=== PATIENT | female | born 1945 | race Caucasian/White ===

== ENCOUNTER → 2023-09-22 00:27 | Outpatient (CLI) | payer MEDICARE, SELFPAY ==
--- NOTE | 2023-09-22 | DI.CT_ITS ---
Exam(s) CT CHEST WO EXAM: CT CHEST WO CLINICAL HISTORY: LUNG NODULE, R91.1, 4 MM LUNG NODULE RLL SEEN ON CT SIM FOR BREAST CA TECHNIQUE: Imaging Protocol: Axial computed tomography images with coronal and sagittal reformatted images were created and reviewed CONTRAST MATERIAL: Intravenous: Omnipaque 350 Contrast volume:structured data ml. COMPARISON: CT CT ANGIOGRAM ABDOMEN AND PELVIS W CONTRAST (GENERIC) from 02/07/[address] HEART FUNC (NON-CORONARY) W from 02/07/[address] RAD ONC CHEST INTER from 07/07/[address] RAD ONC CHEST INTER from 08/04/2023 FINDINGS: Pulmonary parenchyma: No consolidation. Left lower lobe nodule stable. Pre previously mentioned nod ule near the right major fissure is not visible on today's exam mild bilateral upper lobe interstiti al changes. Tracheobronchial tree: No bronchiectasis or mucous plugging. Mediastinum and Dione: No dominant adenopathy or fluid collection. Pleura: No effusion. No pneumothorax. Heart: The heart is mildly dilated. No coronary artery calcifications are seen. Status post TAVR, sarita ral valve and tricuspid valve replacements. Aorta: Thoracic aorta non-dilated. Moderate atherosclerotic changes. Upper abdomen: Unremarkable. Bones: Median sternotomy wires. Soft tissues: Surgical clips and mild scarring in the left breast. IMPRESSION: Stable left lower lobe nodule. Nodule mentioned on previous exam in the anterior right lower lobe no t seen on the current study. RADIATION DOSE DELIVERED: Total DLP DATA REPOSITORY: All CT scans at this facility are submitted to the National Radiology Data Registry (NRDR) Dose Index Registry (DIR) with the [employer] ([employer]). RADIATION OPTIMIZATION: All CT scans at this facility use at least one of these dose optimization te chniques: automated exposure control; mA and/or kV adjustment per patient size (includes targeted exa ms where dose is matched to clinical indication); or iterative reconstruction.
== END ==
PROVIDERS: PCP Registered Nurse Critical Care Medicine; Visit Provider Radiology Radiation Oncology
DX: R91.1 Solitary pulmonary nodule (principal)
CPT/HCPCS: 71250

== ENCOUNTER → 2024-04-11 02:47 | Outpatient (CLI) | payer MEDICARE, SELFPAY ==
--- NOTE | 2024-04-11 10:39 | DI.CT_ITS ---
Exam(s) CT CHEST WO EXAM: CT CHEST WO CLINICAL HISTORY: R91.8 Lung nodules,Z29.3 S/P radiotherapy, H/O Hodgkins s/p xrt 40 yrs ago. TECHNIQUE: Imaging protocol: Axial computed tomography images were obtained and coronal and sagittal reformatted images were created and reviewed. COMPARISON: CT CT RAD ONC CHEST INTER from 07/07/[address] RAD ONC CHEST INTER from 08/04/[address] CHEST WO from 09/22/2023 FINDINGS: Tracheobronchial tree: Patent where visualized. Pulmonary parenchyma: There is a stable 4-5 mm left lower lobe nodule (series 3, image 381). There i s a small infiltrate seen in the right lung base. Post radiation changes are again seen in the chest . No new pulmonary nodules are present. Mediastinum and Dione: No dominant adenopathy or fluid collection. The esophagus is unremarkable. Pleura: No effusion or pneumothorax. Heart: Cardiomegaly. Aortic, tricuspid and mitral valve replacements are present. Coronary artery c alcifications are present. No pericardial effusion. Aorta: The ascending thoracic aorta measures 3.7 x 3.6 cm. Atherosclerotic calcification is present. Upper abdomen: Cholelithiasis. There is a 1 cm hypodensity in the dome of the liver (series 3, imag e 480). Lymph nodes: Within normal limits. Soft tissues: Unremarkable. Bones:Within normal limits for the patient's age. Sternal wires are in place. IMPRESSION: 1. No new pulmonary nodules. 2. Small the trait in the right lower lobe. This may be post therapeutic but an infectious or inflam matory process should be considered. Please correlate clinically. 3. 1 cm hypodensity in the dome of the liver. Further evaluation with CT and/or MRI of the liver is recommended. RADIATION DOSE DELIVERED: 575.42mGy.cm Total DLP 575.42mGy.cm Total DLP DATA REPOSITORY: All CT scans at this facility are submitted to the National Radiology Data Registry (NRDR) Dose Index Registry (DIR) with the [employer] ([employer]). RADIATION OPTIMIZATION: All CT scans at this facility use at least one of these dose optimization te chniques: automated exposure control; mA and/or kV adjustment per patient size (includes targeted exa ms where dose is matched to clinical indication); or iterative reconstruction.
== END ==
PROVIDERS: PCP Registered Nurse Critical Care Medicine; Visit Provider Radiology Radiation Oncology
DX: R91.8 Other nonspecific abnormal finding of lung field (principal)
CPT/HCPCS: 71250

== ENCOUNTER → 2024-04-25 04:04 | Outpatient (CLI) | payer MEDICARE, SELFPAY ==
--- OUTSIDE RECORDS SUMMARY | 2024-04-25 04:06 | XMS_ITS | Continuity of Care Document ---
Author Name Unknown Organization [facility] Address [address] [place] [address] Care Team Providers Care Research Spec Name Role Phone Taylor DEWEYNMally Ronda Primary Care Physician Encounter LTTL_CT FIN NBR [id number] Date(s): 03/11/23 - 03/11/[address] [address]- [place] Discharge Disposition: Home or Self Care Attending Physician: Katlyn Peoples DO Admitting Physician: Katlyn Peoples DO Allergies, Adverse Reactions, Alerts Substance Reaction Severity Status narcotic analgesics Unknown Active sulfa drugs Rash Hallucinations Unknown Active Flomax Dizziness Unknown Active Assessment and Plan Future Appointments Immunizations Given and Recorded Vaccine Date Status Refusal Reason influenza virus vaccine, inactivated 1 08/02/22 Re corded SARS-CoV-2 mRNA (toshainanameran 12y+) bival 2 08/02/22 Recorded 1Result Comment: RD done at [facility] Lot: [id number] exp: 05/08/2023 [employer] 2Result Comment: Lot: [id number] Exp: 06/08/23 LD done at [facility] Medications Acidophilus Probiotic Blend 1 cap, Oral, Daily, 0 Refill(s) Start Date: 08/11/22 Status: Ordered Albuterol (Eqv-Proventil HFA) 90 mcg/inh inhalation aerosol 1 puffs, Inhale, every 4 hr, PRN as needed for wheezing, Do not exceed 12 inhalations in a 24-hour period., # 1 EA, 0 Refill(s), Pharmacy: [facility] #[id number], 170, cm, 11/11/22 12:19:00 EST, Height/Length Dosing, 96, kg, 11/11/22 12:19:00 EST, Weight... Start Date: 11/25/22 Status: Ordered alendronate 70 mg oral tablet 70 mg = 1 tab, Oral, every week, with 6-8 oz plain water, at least 30 minutes before first food, beverage, or medication of the day. Remain upright for at least 30 minutes after taking., # 12 tab, 1 Refill(s), Pharmacy: [facility]... Start Date: 02/03/23 Stop Date: 07/21/23 Status: Ordered aspirin 81 mg oral delayed release tablet 81 mg = 1 tab, Oral, Daily, # 30 tab, 0 Refill(s) Start Date: 01/05/23 Status: Ordered atorvastatin 10 mg oral tablet 10 mg = 1 tab, Oral, every evening, # 90 tab, 3 Refill(s), Pharmacy: [facility],114.09, cm, 08/12/22 16:18:00 EDT, Height/Length Dosing, 165, kg, 08/12/22 16:18:00 EDT, Weight Dosing Start Date: 10/24/22 Stop Date: 10/19/23 Status: Ordered calcium (as carbonate)-vitamin D 600 mg-200 intl units oral tablet 1 tab, Oral, Daily Start Date: 08/11/22 Status: Ordered citalopram 20 mg oral tablet See Instructions, TAKE ONE TABLET BY MOUTH ONCE DAILY Appointment on 03/24/2023, # 90 tab, 0 Refill(s), Pharmacy: [facility] #[id number], 170, cm, 11/11/22 12:19:00 EST, Height/Length Dosing, 96, kg, 11/11/22 12:19:00 EST, Weight Dosing Start Date: 03/09/23 Status: Ordered Coenzyme Q10 100 mg oral capsule 100 mg = 1 cap, Oral, Daily Start Date: 08/11/22 Status: Ordered docusate sodium 100 mg oral capsule 100 mg = 1 cap, Oral, BID, PRN as needed for constipation, # 20 cap, 0 Refill(s) Start Date: 09/16/22 Status: Ordered furosemide 40 mg oral tablet 40 mg = 1 tab, Oral, every morning, # 90 tab, 3 Refill(s), Pharmacy: [facility],114.09, cm, 08/12/22 16:18:00 EDT, Height/Length Dosing, 165, kg, 08/12/22 16:18:00 EDT, Weight Dosing Start Date: 10/24/22 Stop Date: 10/19/23 Status: Ordered gabapentin 100 mg oral capsule 100 mg = 1 cap, Oral, Daily, 0 Refill(s) Start Date: 01/11/23 Status: Ordered lansoprazole 30 mg oral delayed release capsule 30 mg = 1 cap, Oral, every morning Start Date: 08/11/22 Status: Ordered levothyroxine 137 mcg (0.137 mg) oral tablet 137 mcg = 1 tab, Oral, every morning Start Date: 08/11/22 Status: Ordered losartan 100 mg oral tablet 100 mg = 1 tab, Oral, Daily, # 90 tab, 3 Refill(s), Pharmacy: [facility], 114.09, cm, 08/12/22 16:18:00 EDT, Height/Length Dosing, 165, kg, 08/12/22 16:18:00 EDT, Weight Dosing Start Date: 10/24/22 Stop Date: 10/19/23 Status: Ordered metFORMIN 500 mg oral tablet 500 mg = 1 tab, Oral, every evening, # 90 tab, 3 Refill(s), Pharmacy: [facility], 114.09, cm, 08/12/22 16:18:00 EDT, Height/Length Dosing, 165, kg, 08/12/22 16:18:00 EDT, Weight Dosing Start Date: 10/24/22 Stop Date: 10/19/23 Status: Ordered metoprolol tartrate 25 mg oral tablet 25 mg = 1 tab, Oral, BID, # 180 tab, 3 Refill(s), Pharmacy: [facility], 114.09, cm, 08/12/22 16:18:00 EDT, Height/Length Dosing, 165, kg, 08/12/22 16:18:00 EDT, Weight Dosing Start Date: 10/24/22 Stop Date: 10/19/23 Status: Ordered multivitamin adult, oral tablet 1 tab, Oral, Daily Start Date: 08/11/22 Status: Ordered Senna Lax 8.6 mg oral tablet 17.2 mg = 2 tab, Oral, every day at bedtime, PRN as needed for constipation, # 100 tab, 0 Refill(s) Start Date: 09/16/22 Status: Ordered Problem List Condition Confirmation Course Effective Dates Status Health Status Informant Acquired hypothyroidism Confirmed Active Altered bowel habits Confirmed Active Amaurosis fugax Confirmed Active Anemia of chronic disorder Confirmed Active Colon arteriovenous malformation Confirmed Active Arthritis of right acromioclavicular joint Confirmed Active Asthma Confirmed Active Asthma Confirmed Active Autoimmune hemolytic anemia, unspecified Confirmed Active Carotid artery aneurysm Confirmed Active Cholecystitis, chronic Confirmed Active Grief reaction with prolonged bereavement Confirmed Active Coronary artery disease Confirmed Active Muscle cramps Confirmed Active Diabetes mellitus type 2 Confirmed Active Cardiomyopathy, dilated Confirmed Active Pharyngoesophageal dysphagia Confirmed Active Fibrosis of skin Confirmed Active Mild stress incontinence Confirmed Active History of varicose veins of lower extremity Confirmed Active Anemia, hemolytic Confirmed Active History of Hodgkin's disease Confirmed Active History of ITP Confirmed Active Hyperlipidemia Confirmed Active Hypertension Confirmed Active Hypertriglyceridemia Confirmed Active Hypothyroidism Confirmed Active Nocturnal hypoxemia Confirmed Active Lymphedema Confirmed Active Cystocele, midline Confirmed Active Aortic valve stenosis, mild Confirmed Active Mitral valve disorder Confirmed Active Mitral regurgitation Confirmed Active Depression with anxiety Confirmed Active Neuropathy Confirmed Active NHL - Non-Hodgkin's lymphoma Confirmed Active Obstructive sleep apnea Confirmed Active Osteoarthritis Confirmed Active Peripheral vascular disease, unspecified Confirmed Active Diabetic polyneuropathy associated with type 2 diabetes mellitus Confirmed Active Reactive depression Confirmed Active Presbylarynges Confirmed Active Sleep apnea Confirmed Active Isolation, social Confirmed Active Thrombocytopenia Confirmed Active Thrombocytopenic purpura Confirmed Active Varicose veins of both legs with edema Confirmed Active Vitamin D deficiency Confirmed Active Vocal cord paralysis, unilateral complete Confirmed Active Xerostomia Confirmed Active Procedures Procedure Date Related Diagnosis Body Site Status Arthroplasty Knee (Left) 1 08/12/22 Completed Aortic valve replacement and aortoplasty 02/06/21 Completed Colonoscopy 01/27/18 Completed EGD - Esophagogastroduodenoscopy 01/27/18 Completed Biopsy of liver 05/01/14 Completed Biopsy of right lung using f luoroscopic guidance 2013 Completed Open heart valvuloplasty of aortic valve without replacement 2013 Comp leted EGD - Esophagogastroduodenoscopy 05/23/10 Completed Colonoscopy 02/04/00 Completed Bilateral tubal ligation Completed ALEJO BSO - Total abdominal hy sterectomy and bilateral salpingo-oophorectomy 3 Completed 1auto-populated from documented surgical case 2Mitral and Tricuspid 3Due to Fibroids Results Radiology Reports * Exam Date Time Procedure Performing Provider Status 03/11/23 1:10 PM XR Knee Complete 4+ Views Right Twan Schulz; Auth (Verified) Notes: (XR Knee Complete 4+ Views Right) Reason For Exam: f/u right knee pain XR Knee Complete 4+ Views Right EXAM DESCRIPTION: XR Knee Complete 4+ Views Right 03/11/2023 INDICATION: F/U RIGHT KNEE PAIN COMPARISON: 06/04/2011 IMPRESSION: No acute fracture or dislocation Medial femorotibial and patellofemoral compartment joint space narrowing with tricompartment osteophyte formation consistent with osteoarthritic changes No focal lytic or sclerotic lesion Regional vascular calcification. JOB #: [id number] Final Signed by: Kishore Parra MD Signed (Electronic Signature): 03/11/2023 1:24 pm Social History Social History Type Response Tobacco Never tobacco user T obacco Use:. 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 Prateekemiliana Richelle, DO 08/12/22 Non Biological Knee L Device Identifier Serial Number Lot or Batch Number Manufacturing Date Expiration Date Distinct Identification Code MRI Safety Implantable Status Assigning Authority Unknown NA [id number] Unknown 08/07/24 Unknown Unknown Active Unknown Unknown N/A [id number] Unknown 06/10/32 Unknown Unknown Active Unknown Unknown NA [id number] Unknown 04/01/27 Unknown Unknown Active Unknown Unknown N/A [id number] Unknown 12/07/31 Unknown Unknown Active Unknown Unknown N/A [id number] 2 Unknown 12/15/26 Unknown Unknown Active Unknown XR Knee - right GE 4 Views * Kishore Parra MD: VERIFY, VERIFY Event Display: Report EXAM DESCRIPTION: XR Knee Complete 4+ Views Right 03/11/2023 INDICATION: F/U RIGHT KNEE PAIN COMPARISON: 06/04/2011 IMPRESSION: No acute fracture or dislocation Medial femorotibial and patellofemoral compartment joint space narrowing with tricompartment osteophyte formation consistent with osteoarthritic changes No focal lytic or sclerotic lesion Regional vascular calcification. JOB #: [id number] Final Signed by: Kishore Parra MD Signed (Electronic Signature): 03/11/2023 1:24 pm Patient Care team information Care Team Personnel Name: Sanaz Fang APRN, Position: Physician Member Role: Nurse Practitioner Address: Address: [address] [place] [address] Name: Anabel Peoples APRN Position: Physician Member Role: Nurse Practitioner Address: Address: [address] [place] [address] Name: Mally Vazquez APRN Position: Physician Member Role: Primary Care Physician Address: Address: [address] [place] [address] [place] [address] Care Team Related Persons Name: LAURA LEON Address: Home
--- OUTSIDE RECORDS SUMMARY | 2024-04-25 04:06 | XMS_ITS | Continuity of Care Document ---
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 Name Role Phone Mally Vazquez APRN Primary Care Physician [phone] Encounter [facility] NBR [id number] Date(s): 10/21/23 - 10/22/[address] [phone]- [place] Encounter Diagnosis Generalized weakness(Discharge Diagnosis) - 10/21/23 NOVA (acute kidney injury)(Discharge Diagnosis) - 10/21/23 DM2 (diabetes mellitus, type 2)(Discharge Diagnosis) - 10/21/23 KWAKU on CPAP(Discharge Diagnosis) - 10/21/23 Discharge Disposition: Home or Self Care Attending Physician: Jonathon Cox APRN Admitting Physician: Jonathon Cox APRN Allergies, Adverse Reactions, Alerts Substance Reaction Severity Status narcotic analgesics 1 Unknown Active sulfa drugs Rash Hallucinations Unknown Active Flomax Dizziness Unknown Active 1coma for 4 days . 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 Current Home Treatments CPAP, Oxygen therapy Home Equipment CPAP unit, Oxygen, Walker 10/22/23 Breakfast Percent 100 10/22/23 Activity Status ADL Sleeping 10/21/23 Family Member Travel History No recent t ravel Recent Travel History No recent travel Other exposure to Infectious Disease Non e Immunizations Given and Recorded Vaccine Date Status Refusal Reason influenza virus vaccine, inactivated 1 08/02/22 Re corded SARS-CoV-2 mRNA (tolaminn 12y+) bival 2 08/02/22 Recorded 1Result Comment: RD done at [facility] Lot: [id number] exp: 05/08/2023 [employer] 2Result Comment: Lot: [id number] Exp: 06/08/23 LD done at [facility] Medications Albuterol (Eqv-Proventil HFA) 90 mcg/inh inhalation aerosol 1 puffs, Inhale, every 4 hr, PRN as needed for wheezing, Do not exceed 12 inhalations in a 24-hour period., # 1 EA, 0 Refill(s), Pharmacy: [id number], 170, cm, 11/11/22 12:19:00 EST, Height/Length Dosing, 96, kg, 11/11/22 12:19:00 EST, Weight Dosing Start Date: 11/25/22 Status: Ordered alendronate 70 mg oral tablet 70 mg = 1 tab, Oral, every week, with 6-8 oz plain water, at least 30 minutes before first food, beverage, or medication of the day. Remain upright for at least 30 minutes after taking., # 12 tab, 1 Refill(s), Pharmacy: [facility], 170, cm, 11/11/22 12:19:00 EST, Height/Length Dosing, 96, kg, 11/11/22 12:19:00 EST, Weight Dosing Start Date: 07/21/23 Stop Date: 01/05/24 Status: Ordered atorvastatin 10 mg oral tablet 10 mg = 1 tab, Oral, every evening, # 90 tab, 3 Refill(s), Pharmacy: [facility],114.09, cm, 08/12/22 16:18:00 EDT, Height/Length Dosing, 165, kg, 08/12/22 16:18:00 EDT, Weight Dosing Start Date: 10/24/22 Stop Date: 10/19/23 Status: Ordered Calcium 600+D 600 mg-200 intl units oral tablet 1 tab, Oral, Daily, 28 tab, 0 Refill(s) Start Date: 04/22/23 Status: Ordered citalopram 20 mg oral tablet 20 mg = 1 tab, Oral, Daily, # 30 tab, 0 Refill(s) Start Date: 10/22/23 Status: Ordered Coenzyme Q10 100 mg oral capsule 100 mg = 1 cap, Oral, Daily Start Date: 08/11/22 Status: Ordered Diabetic footwear Diabetic footwear, Please fit for diabetic shoes., Supply, See instructions, # 1 EA, 0 Refill(s) Start Date: 03/30/23 Status: Ordered famotidine 20 mg oral tablet 20 mg = 1 tab, Oral, Daily, 0 Refill(s) Start Date: 04/22/23 Status: Ordered folic acid 1 mg oral tablet 1 mg = 1 tab, Oral, Daily, # 30 tab, 0 Refill(s) Start Date: 10/20/23 Status: Ordered furosemide 40 mg oral tablet 1 tab, Oral, every morning, # 90 tab, 3 Refill(s), Pharmacy: [facility], 165, cm, 09/24/23 19:47:00 EST, Height, 102.2, kg, 09/24/23 19:47:00 EST, Weight Dosing Start Date: 10/13/23 Status: Ordered gabapentin 100 mg oral capsule 100 mg = 1 cap, Oral, Daily, # 90 cap, 3 Refill(s), Pharmacy: [facility], 165, cm, 09/24/23 19:47:00 EST, Height, 102.2, kg, 09/24/23 19:47:00 EST, Weight Dosing Start Date: 10/13/23 Stop Date: 10/07/24 Status: Ordered Jardiance 10 mg oral tablet 1 tab, Oral, every morning, # 30 tab, 0 Refill(s), Pharmacy: [facility] #[id number], 165, cm, 09/24/2319:47:00 EST, Height, 102.2, kg, 09/24/23 19:47:00 EST, Weight Dosing Start Date: 10/12/23 Status: Ordered lansoprazole 30 mg oral delayed release capsule 30 mg = 1 cap, Oral, Daily, # 30 cap, 0 Refill(s) Start Date: 10/22/23 Status: Ordered letrozole 2.5 mg oral tablet 2.5 mg = 1 tab, Oral, Daily, 0 Refill(s) Start Date: 10/22/23 Status: Ordered levothyroxine 137 mcg (0.137 mg) oral tablet See Instructions, TAKE 1 TABLET DAILY IN THE MORNING ON AN EMPTY STOMACH, # 90 tab, 3 Refill(s), Pharmacy: [facility], 170, cm, 11/11/22 12:19:00 EST, Height/Length Dosing, 96, kg,11/11/22 12:19:00 EST, Weight Dosing Start Date: 04/14/23 Status: Ordered losartan 100 mg oral tablet 1 tab, Oral, Daily, # 90 tab, 3 Refill(s), Pharmacy: [facility], 165, cm, 09/24/23 19:47:00 EST, Height, 102.2, kg, 09/24/23 19:47:00 EST, Weight Dosing Start Date: 10/01/23 Status: Ordered metoprolol tartrate 25 mg oral tablet 25 mg = 1 tab, Oral, BID, # 180 tab, 3 Refill(s), Pharmacy: [facility], 170, cm,11/11/22 12:19:00 EST, Height/Length Dosing, 96, kg, 11/11/22 12:19:00 EST, Weight Dosing Start Date: 08/25/23 Stop Date: 08/19/24 Status: Ordered multivitamin adult, oral tablet 1 tab, Oral, Daily Start Date: 08/11/22 Status: Ordered RediMetrics oral capsule 8 EA, TAKE 1 CAPSULE BY MOUTH TWICE DAILY, 0 Refill(s) Start Date: 04/22/23 Status: Ordered Please provide one touch ultra test strips Please provide one touch ultra test strips, For blood glucose monitoring once daily., Supply, See instructions, # 100 EA, 3 Refill(s), Pharmacy: [facility] Start Date: 10/23/23 Status: Ordered Mental Status 10/22/23 Eye Opening Response [place] Spontaneous ly Best Verbal Response Chichi Oriented Best Motor Response Chichi Obeys comman ds Chichi Coma Score 15 Problem List Condition Confirmation Course Effective Dates [...] Hypothyroidism Confirmed Active Nocturnal hypoxemia Confirmed Active Idiopathic thrombocytopenia Confirmed Active 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 Lymphedema Confirmed Active Cystocele, midline Confirmed Active Aortic valve stenosis, mild Confirmed Active Mitral valve disorder Confirmed Active Mitral regurgitation Confirmed Active Depression with anxiety Confirmed Active Neuropathy Confirmed Active NHL - Non-Hodgkin's lymphoma Confirmed Active Normocytic anemia Confirmed Active Obstructive sleep apnea Confirmed Active [...] Colonoscopy 02/04/00 Completed Bilateral tubal ligation Completed Lumpectomy of left breast Completed ALEJO BSO - Total abdominal hy sterectomy and bilateral salpingo-oophorectomy 3 Completed 1auto-populated from documented surgical case 2Mitral and Tricuspid 3Due to Fibroids Results Laboratory List Name Date Glucose POCT 10/22/23 Glucose POCT 10/22/23 Basic Metabolic Panel (BMP) 10/22/23 Lactic Acid 10/22/23 Urinalysis Microscopic 10/21/23 Urinalysis with Micro if Indicated and C ulture if Indicated 10/21/23 Troponin-I High Sensitivity 10/21/23 Blood Gas Venous 10/21/23 Lactic Acid 10/21/23 Automated Diff 10/21/23 CBC w/ Diff 10/21/23 Comprehensive Metabolic Panel (CMP) 10/09 01/29 D-Dimer 10/21/23 Magnesium Level 10/21/23 Troponin-I High Sensitivity 10/21/23 Most recent to oldest [Reference Range]: 1 2 WBC [4.8-10.8 K/mcL] 9.2 K/mcL (10/21/23 6:38 PM) RBC [4.20-5.40 Million/mcL] 3.17 Million /mcL *LOW* (10/21/23 6:38 PM) Neutro Auto [42.2-75.2 %] 76.4 % *HI* (10/21/23 6:38 PM) Lymph Auto [20.5-51.1 %] 13.8 % *LOW* (10/21/23 6:38 PM) [place] Auto [1.7-9.3 %] 8.6 % (10/21/23 6:38 PM) Basophil Auto [0.0-0.8 %] 0.5 % (10/21/23 6:38 PM) BUN [7-25 mg/dL] 31 mg/dL *HI* (10/22/23 6:16 AM) 40 mg/dL *HI* (10/21/23 6:38 PM) Glucose POC 164 *NA* (10/22/23 11:34 AM) 119 *NA* (10/22/23 8:25 AM) UA Color [Yellow] Yellow (10/21/23 8:50 PM) UA WBC [0-3] 0-3 (10/21/23 8:50 PM) Glucose Level [70-109 mg/dL] 114 mg/dL *HI* (10/22/23 6:16 AM) 154 mg/dL *HI* (10/21/23 6:38 PM) Potassium Level [3.5-5.1 mmol/L] 3.7 mmo l/L (10/22/23 6:16 AM) 4.6 mmol/L 1 (10/21/23 6:38 PM) Baso Absolute [0.0-0.2 K/mcL] 0.0 K/mcL (10/21/23 6:38 PM) MCV [81.0-99.0 fL] 89.7 fL (10/21/23 6:38 PM) UA Urobilinogen [0.2] 0.2 (10/21/23 8:50 PM) UA Hyal Cast [0-3] 0-3 (10/21/23 8:50 PM) UA Bili [Negative] Negative (10/21/23 8:50 PM) CO2 Total Venous [22.0-26.0 mmol/L] 27.7 mmol/L *HI* (10/21/23 7:52 PM) UA Ketones [Negative] Negative (10/21/23 8:50 PM) HCO3 Venous [22.0-29.0 mmol/L] 26.7 mmol /L (10/21/23 7:52 PM) AST [13-39 IntlUnit/L] 31 IntlUnit/L (10/21/23 6:38 PM) ALT [7-52 IntlUnit/L] 21 IntlUnit/L 2 (10/21/23 6:38 PM) MCHC [32.0-37.0 g/dL] 33.4 g/dL (10/21/23 6:38 PM) Osmolality [275-295 mOsm/kg] 287 mOsm/kg (10/22/23 6:16 AM) 287 mOsm/kg (10/21/23 6:38 PM) Sodium Level [136-145 mmol/L] 140 mmol/L (10/22/23 6:16 AM) 137 mmol/L (10/21/23 6:38 PM) UA RBC [0-3] 0-3 (10/21/23 8:50 PM) UA Leuk Est [Negative] Trace *ABN* (10/21/23 8:50 PM) Lymph Absolute [1.2-3.4 K/mcL] 1.3 K/mcL (10/21/23 6:38 PM) UA Nitrite [Negative] Negative (10/21/23 8:50 PM) UA Glucose [Negative] >=1000 *ABN* (10/21/23 8:50 PM) Hct [37.0-47.0 %] 28.5 % *LOW* (10/21/23 6:38 PM) Calcium Level [8.6-10.3 mg/dL] 8.1 mg/dL *LOW* (10/22/23 6:16 AM) 9.0 mg/dL (10/21/23 6:38 PM) [place] Absolute [0.1-0.6 K/mcL] 0.8 K/mcL *HI* (10/21/23 6:38 PM) Albumin Level [3.5-5.7 g/dL] 3.8 g/dL (10/21/23 6:38 PM) Protein Total [6.4-8.9 g/dL] 7.8 g/dL (10/21/23 6:38 PM) UA Protein [Negative] Negative (10/21/23 8:50 PM) MCH [27.0-31.0 pg] 30.0 pg (10/21/23 6:38 PM) Magnesium Level [1.9-2.7 mg/dL] 2.1 mg/d L (10/21/23 6:38 PM) Neutro Absolute [1.4-6.5 K/mcL] 7.0 K/mc L *HI* (10/21/23 6:38 PM) Bilirubin Total [0.3-1.0 mg/dL] 1.1 mg/d L *HI* (10/21/23 6:38 PM) Hgb [12.0-16.0 g/dL] 9.5 g/dL *LOW* (10/21/23 6:38 PM) Alk Phos [34-104 IntlUnit/L] 40 IntlUnit /L (10/21/23 6:38 PM) UA Blood [Negative] Trace *ABN* (10/21/23 8:50 PM) MPV [7.4-10.4 fL] 9.3 fL (10/21/23 6:38 PM) pCO2 [place]ison [42.0-53.0 mmHg] 32.0 mmHg *LOW* (10/21/23 7:52 PM) UA Spec Grav [1.001-1.030] 1.010 (10/21/23 8:50 PM) Platelets [130-400 K/mcL] 269 K/mcL (10/21/23 6:38 PM) CO2 [21-31 mmol/L] 26 mmol/L (10/22/23 6:16 AM) 24 mmol/L (10/21/23 6:38 PM) Eos Absolute [0.0-0.2 K/mcL] 0.1 K/mcL (10/21/23 6:38 PM) Lactic Acid Lvl [0.5-2.2 mmol/L] 0.6 mmo l/L (10/22/23 6:16 AM) 2.2 mmol/L (10/21/23 7:52 PM) UA Squam Epithelial [0-3] 0-3 (10/21/23 8:50 PM) UA pH [5.00-9.00] 6.00 (10/21/23 8:50 PM) pH Addison [7.32-7.43 pH unit(s)] 7.53 pH un it(s) *HI* (10/21/23 7:52 PM) UA Appear [Clear] Clear (10/21/23 8:50 PM) Chloride Level [98-107 mmol/L] 109 mmol/ L *HI* (10/22/23 6:16 AM) 103 mmol/L (10/21/23 6:38 PM) RDW-CV [11.5-14.5 %] 14.5 % (10/21/23 6:38 PM) A/G Ratio [1.0-2.5 g/dL] 1.0 g/dL (10/21/23 6:38 PM) BUN/Creat Ratio [8.0-20.0] 25.8 *HI* (10/22/23 6:16 AM) 25.0 *HI* (10/21/23 6:38 PM) Globulin [2.3-3.5 g/dL] 4.0 g/dL *HI* (10/21/23 6:38 PM) UA Culture Ind?. [No] No (10/21/23 8:50 PM) Urine Srce Clean Catch (10/21/23 8:50 PM) UA Trans Epi [None Seen] 0-3 *ABN* (10/21/23 8:50 PM) Creatinine Level [0.60-1.20 mg/dL] 1.20 mg/dL (10/22/23 6:16 AM) 1.60 mg/dL *HI* (10/21/23 6:38 PM) Troponin-I HS [<=12 ng/L] 12 ng/L 3 (10/21/23 7:58 PM) 12 ng/L 4 (10/21/23 6:38 PM) Anion Gap [3.0-12.0] 5.0 (10/22/23 6:16 AM) 10.0 (10/21/23 6:38 PM) D Dimer, (Quant.) [<=500 ng/mL] 4800 ng/ mL 5 *HI* (10/21/23 6:38 PM) Eos, Auto [0.00-3.00 %] 0.70 % (10/21/23 6:38 PM) eGFR CKD-EPI [>=60 mL/min/1.73 m2] 46 mL /min/1.73 m2 *LOW* (10/22/23 6:16 AM) 33 mL/min/1.73 m2 *LOW* (10/21/23 6:38 PM) 1Result Comment: SLIGHT HEMOLYSIS 2Result Comment: SLIGHT HEMOLYSIS 3Interpretive Data: The [place] ACCESS high-sensitivity Troponin I (hsTNI) 99 percentile cutoffs forhealthy adults are 12 ng/L or less for females and 20 ng/L or less for males. SERIAL MEASUREMENT IS HIGHLY RECOMMENDED for the diagnosis or exclusion of Acute Coronary Syndromes(ACS). Please refer to the High-Sensitivity Troponin Algorithm 2023 for guidance. As with all markers of cardiac injury, elevations of hsTnI do not in and of themselves indicate thepresence of an ischemic mechanism. Many other disease states can be associated with elevations via mechanisms different from those that cause injury in patients with ACS. These include trauma (contusion, ablation, pacing); congestive heart failure; pulmonary embolism; kidney failure; and myocarditis. Clinical judgement is necessary to distinguish patients who have ischemic heart disease from those who do not. 4Interpretive Data: The [place] ACCESS high-sensitivity Troponin I (hsTNI) 99 percentile cutoffs forhealthy adults are 12 ng/L or less for females and 20 ng/L or less for males. SERIAL MEASUREMENT IS HIGHLY RECOMMENDED for the diagnosis or exclusion of Acute Coronary Syndromes(ACS). Please refer to the High-Sensitivity Troponin Algorithm 2023 for guidance. As with all markers of cardiac injury, elevations of hsTnI do not in and of themselves indicate thepresence of an ischemic mechanism. Many other disease states can be associated with elevations via mechanisms different from those that cause injury in patients with ACS. These include trauma (contusion, ablation, pacing); congestive heart failure; pulmonary embolism; kidney failure; and myocarditis. Clinical judgement is necessary to distinguish patients who have ischemic heart disease from those who do not. 5Interpretive Data: A normal D-dimer result (< or =500 ng/mL FEU) has a negative predicitive value of approximately 95% for the exclusion of acute embolism (PE) or deep vein thrombosis when there is low or moderate pretest PE probability. Radiology Reports * Exam Date Time Procedure Performing Provider Status 10/21/23 7:23 PM XR Chest 1 View Eliel Sanders (Verified) Notes: (XR Chest 1 View) Reason For Exam: dyspnea XR Chest 1 View PROCEDURE INFORMATION: Exam: XR Chest Exam date and time: 10/21/2023 7:19 PM Age: 78 years old Clinical indication: Dyspnea TECHNIQUE: Imaging protocol: Radiologic exam of the chest. Views: 1 view. COMPARISON: CR XR CHEST, 2 VIEWS 09/24/2023 7:59 PM FINDINGS: Lungs: Unremarkable. No consolidation. Pleural spaces: Unremarkable. No pleural effusion. No pneumothorax. Heart/Mediastinum: Stable valvuloplasty. No cardiomegaly. Bones/joints: Median sternotomy wires. IMPRESSION: No acute findings. THIS DOCUMENT HAS BEEN ELECTRONICALLY SIGNED BY FABIAN FERGUSON MD on 10/21/2023 07:43 PM Final Signed by: Fabian Ferguson MD Signed (Electronic Signature): 10/21/2023 7:43 pm Vital Signs Most recent to oldest [Reference Range]: 1 2 3 Temperature Oral [35.8-37.3 Deg C] 36.3 Deg C (10/22/23 12:24 PM) 36.8 Deg C (10/22/23 11:43 AM) 36.9 Deg C (10/22/23 8:28 AM) Temperature Oral (DegF) [96.4-99.1 Deg F] 98.06 Deg F (10/22/23 3:43 AM) 98.06 Deg F (10/21/23 11:05 PM) Temperature Temporal Artery [36-38 Deg C] 36.8 Deg C (10/21/23 6:27 PM) Peripheral Pulse Rate [60-100 bpm] 75 bpm (10/22/23 12:24 PM) 83 bpm (10/22/23 11:43 AM) 77 bpm (10/22/23 8:28 AM) Respiratory Rate [12-24 br/min] 14 br/min (10/22/23 12:24 PM) 18 br/min (10/22/23 11:43 AM) 17 br/min (10/22/23 8:28 AM) Blood Pressure [90-140/60-90 mmHg] 114/44mmHg (10/22/23 12:24 PM) 149/69mmHg *HI* (10/22/23 11:43 AM) 133/60mmHg (10/22/23 8:28 AM) Mean Arterial Pressure, Cuff [70-110 mmHg] 85 mmHg (10/22/23 3:43 AM) 74 mmHg (10/21/23 11:05 PM) 81 mmHg (10/21/23 10:01 PM) Mean Arterial Pressure Cuff 75 mmHg (10/21/23 8:00 PM) 68 mmHg (10/21/23 7:00 PM) Blood Pressure Location Right arm (10/22/23 12:24 PM) Weight 99 kg (10/21/23 11:05 PM) 99 kg (10/21/23 6:27 PM) Weight Dosing 99.000 kg (10/21/23 6:27 PM) Height 164 cm (10/21/23 11:05 PM) 165 cm (10/21/23 6:27 PM) BSA Measured 2.12 m2 (10/21/23 11:05 PM) BSA Estimated 0 m2 (10/21/23 11:05 PM) Body Mass Index 36.81 kg/m2 (10/21/23 11:05 PM) 36.36 kg/m2 (10/21/23 6:27 PM) Social History Social History Type Response Tobacco Never tobacco user T obacco Use:. 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 Katlyn Hallman DO 08/12/22 Non Biological Knee L Device Identifier Serial Number Lot or Batch Number Manufacturing Date Expiration Date Distinct Identification Code MRI Safety Implantable Status Assigning Authority Unknown NA [id number] Unknown 08/07/24 Unknown Unknown Active Unknown Unknown N/A [id number] 2 Unknown 06/10/32 Unknown Unknown Active Unknown Unknown NA [id number] Unknown 04/01/27 Unknown Unknown Active Unknown Unknown N/A [id number] 2 Unknown 12/07/31 Unknown Unknown Active Unknown Unknown N/A [id number] 2 Unknown 12/15/26 Unknown Unknown Active Unknown Hospital Discharge Instructions Patient Education 10/22/2023 10:59:19 Diabetes Mellitus and Nutrition, Adult Diabetes Mellitus and Nutrition, Adult When you have diabetes, or diabetes mellitus, it is very important to have healthy eating habits because your blood sugar (glucose) levels are greatly affected by what you eat and drink. Eating healthy foods in the right amounts, at about the same times every day, can help you: ??? Manage your blood glucose. ??? Lower your risk of heart disease. ??? Improve your blood pressure. ??? Reach or maintain a healthy weight. What can affect my meal plan? Every person with diabetes is different, and each person has different needs for a meal plan. Your health care provider may recommend that you work with a dietitian to make a meal plan that is best for you. Your meal plan may vary depending on factors such as: ??? The calories you need. ??? The medicines you take. ??? Your weight. ??? Your blood glucose, blood pressure, and cholesterol levels. ??? Your activity level. ??? Other health conditions you have, such as heart or kidney disease. How do carbohydrates affect me? Carbohydrates, also called carbs, affect your blood glucose level more than any other type of food.Eating carbs raises the amount of glucose in your blood. It is important to know how many carbs you can safely have in each meal. This is different for every person. Your dietitian can help you calculate how many carbs you should have at each meal and for each snack. How does alcohol affect me? Alcohol can cause a decrease in blood glucose (hypoglycemia), especially if you use insulin or takecertain diabetes medicines by mouth. Hypoglycemia can be a life-threatening condition. Symptoms of hypoglycemia, such as sleepiness, dizziness, and confusion, are similar to symptoms of having too much alcohol. ??? Do not drink alcohol if: ??? Your health care provider tells you not to drink. ??? You are , may be , or are planning to become . ??? If you drink alcohol: ??? Limit how much you have to: ??? 0???1 drink a day for women. ??? 0???2 drinks a day for men. ??? Know how much alcohol is in your drink. In the [place] one drink equals one 12 oz bottle of beer (355 mL), one 5 oz glass of wine (148 mL), or one 1?? oz glass of hard liquor (44 mL). ??? Keep yourself hydrated with water, diet soda, or unsweetened iced tea. Keep in mind that regular soda, juice, and other mixers may contain a lot of sugar and must be counted as carbs. What are tips for following this plan? Reading food labels ??? Start by checking the serving size on the Nutrition Facts label of packaged foods and drinks. The number of calories and the amount of carbs, fats, and other nutrients listed on the label are based on one serving of the item. Many items contain more than one serving per package. ??? Check the total grams (g) of carbs in one serving. ??? Check the number of grams of saturated fats and trans fats in one serving. Choose foods that have a low amount or none of these fats. ??? Check the number of milligrams (mg) of salt (sodium) in one serving. Most people should limit total sodium intake to less than 2,300 mg per day. ??? Always check the nutrition information of foods labeled as low-fat or nonfat. These foods may be higher in added sugar or refined carbs and should be avoided. ??? Talk to your dietitian to identify your daily goals for nutrients listed on the label. Shopping ??? Avoid buying canned, pre-made, or processed foods. These foods tend to be high in fat, sodium, and added sugar. ??? Shop around the outside edge of the grocery store. This is where you will most often find freshfruits and vegetables, bulk grains, fresh meats, and fresh dairy products. Cooking ??? Use low-heat cooking methods, such as baking, instead of high-heat cooking methods, such as deep frying. ??? Cook using healthy oils, such as olive, canola, or sunflower oil. ??? Avoid cooking with butter, cream, or high-fat meats. Meal planning ??? Eat meals and snacks regularly, preferably at the same times every day. Avoid going long periods of time without eating. ??? Eat foods that are high in fiber, such as fresh fruits, vegetables, beans, and whole grains. ??? Eat 4???6 oz (112???168 g) of lean protein each day, such as lean meat, chicken, fish, eggs, ortofu. One ounce (oz) (28 g) of lean protein is equal to: ??? 1 oz (28 g) of meat, chicken, or fish. ??? 1 egg. ? cup (62 g) of tofu. ??? Eat some foods each day that contain healthy fats, such as avocado, nuts, seeds, and fish. What foods should I eat? Fruits Berries. Apples. Oranges. Peaches. Apricots. Plums. Grapes. Mangoes. Papayas. Pomegranates. Kiwi. Cherries. Vegetables Leafy greens, including lettuce, spinach, kale, chard, armen greens, mustard greens, and cabbage.Beets. Cauliflower. Broccoli. Carrots. Green beans. Tomatoes. Peppers. Onions. Cucumbers. [place] sprouts. Grains Whole grains, such as whole-wheat or whole-grain bread, crackers, tortillas, cereal, and pasta. Unsweetened oatmeal. Quinoa. Brown or wild rice. Meats and other proteins Seafood. Poultry without skin. Lean cuts of poultry and beef. Tofu. Nuts. Seeds. Dairy Low-fat or fat-free dairy products such as milk, yogurt, and cheese. The items listed above may not be a complete list of foods and beverages you can eat and drink. Contact a dietitian for more information. What foods should I avoid? Fruits Fruits canned with syrup. Vegetables Canned vegetables. Frozen vegetables with butter or cream sauce. Grains Refined white flour and flour products such as bread, pasta, snack foods, and cereals. Avoid all processed foods. Meats and other proteins Fatty cuts of meat. Poultry with skin. Breaded or fried meats. Processed meat. Avoid saturated fats. Dairy Full-fat yogurt, cheese, or milk. Beverages Sweetened drinks, such as soda or iced tea. The items listed above may not be a complete list of foods and beverages you should avoid. Contact a dietitian for more information. Questions to ask a health care provider ??? Do I need to meet with a certified diabetes care and associate professor of education? Do I need to meet with a dietitian? What number can I call if I have questions? When are the best times to check my blood glucose? Where to find more information: ??? [place] Diabetes Association: diabetes.org ??? Academy of Nutrition and Dietetics: eatright.org ??? National [place] of Diabetes and Digestive and Kidney Diseases: niddk.nih.gov ? ? Association of Diabetes Care & Education Specialists: diabeteseducator.org Summary ??? It is important to have healthy eating habits because your blood sugar (glucose) levels are greatly affected by what you eat and drink. It is important to use alcohol carefully. ??? A healthy meal plan will help you manage your blood glucose and lower your risk of heart disease. ??? Your health care provider may recommend that you work with a dietitian to make a meal plan thatis best for you. This information is not intended to replace advice given to you by your health care provider. Make sure you discuss any questions you have with your health care provider. Document Revised: 05/29/2021 Document Reviewed: 05/29/2021 [employer] Patient Education ?? 2022 [employer]. Follow Up Care 10/21/2023 18:27:22 With:Mally Vazquez APRN Address: [address] [place] [phone] When:1 month Comments:Provider office will reach out with appointment. Pharmacology Note * Jeff Vargas: PERFORM Event Display: Pharmacy Note Authored Date: med hx via SS review and interview with pt. pt appears good hx. 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 The following includes patient education materials and information regarding your injury/illness. Your Next Steps Scheduled Future Appointments Thursday 2:00 PM EST ?? With: Willis Salgado MD Where: [facility] Primary Care [address] [id number]- Status: Confirmed 2022 11:00 AM EST ?? With: Kerry Joseph Where: [facility] Nutrition Status: Confirmed 2023 12:30 PM EST ?? With: Mally Vazquez APRN Where: [facility] Primary Care [address] [id number]- Status: Confirmed Follow Up Appointments Follow Up with??Mally Vazquez APRN When:??Within 1 month Why: Provider office will reach out with appointment. Where: [address] [place] [phone] The Following Treatments Have Been Arranged for You Current Home Treatments - CPAP, Oxygen therapy Current Home Treatments - CPAP Medications What How Much When Why Instructions Next Dose Changed famotidine (famotidine 20 mg oral tablet) 1 tab Oral (given by mouth) Every day Unchanged albuterol (Albuterol (Eqv-Proventil HFA) 90 mcg/ inh inhalation aerosol) 1 Puffs Inhale (breathe in) Every 4 hours as needed for as needed for wheezing Do not exceed 12 inhalations in a 24-hour period. ?? Unchanged alendronate (alendronate 70 mg oral tablet) 1 tab Oral (given by mouth) Every week Duration: 84 Days with 6-8 oz plain water, at least 30 minutes before first food, beverage, or medication of the day. Remain upright for at least 30 minutes after taking. ?? Unchanged atorvastatin (atorvastatin 10 mg oral tablet) 1 tab Oral (given by mouth) Every evening Duration: 90 Days Unchanged bifidobacterium-lactobacillus ([employer] oral capsule) 8 EA, TAKE 1 CAPSULE BY MOUTH TWICE DAILY ?? Unchanged calcium-vitamin D (Calcium 600+D 600 mg-200 intl units oral tablet) 1 tab Oral (given by mouth) Every day 28 tab ?? Unchanged citalopram (citalopram 20 mg oral tablet) 1 tab Oral (given by mouth) Every day Unchanged Durable Medical Equipment for Prescription (Diabetic footwear) See instructions Diabetes mellitus type 2 Please fit for diabetic shoes. ?? Unchanged empagliflozin (Jardiance 10 mg oral tablet) 1 tab Oral (given by mouth) Every morning Unchanged folic acid (folic acid 1 mg oral tablet) 1 tab Oral (given by mouth) Every day Unchanged furosemide (furosemide 40 mg oral tablet) 1 tab Oral (given by mouth) Every morning Unchanged gabapentin (gabapentin 100 mg oral capsule) 1 Capsules Oral (given by mouth) Every day Duration: 90 Days Unchanged lansoprazole (lansoprazole 30 mg oral delayed release capsule) 1 Capsules Oral (given by mouth) Every day Unchanged letrozole (letrozole 2.5 mg oral tablet) 1 tab Oral (given by mouth) Every day Unchanged levothyroxine (levothyroxine 137 mcg (0.137 mg) oral tablet) See instructions TAKE 1 TABLET DAILY IN THE MORNING ON AN EMPTY STOMACH ?? Unchanged losartan (losartan 100 mg oral tablet) 1 tab Oral (given by mouth) Every day Unchanged metoprolol (metoprolol tartrate 25 mg oral tablet) 1 tab Oral (given by mouth) 2 times a day Duration: 90 Days Unchanged multivitamin (multivitamin adult, oral tablet) 1 tab Oral (given by mouth) Every day Unchanged ubiquinone (Coenzyme Q10 100 mg oral capsule) 1 Capsules Oral (given by mouth) Every day Your Summary Your Care Team Admitting Physician - Jonathon Cox APRN Attending Physician - Jonathon Cox APRN Primary Care Physician - Mally Vazquez APRN Your Diagnosis Generalized weakness NOVA (acute kidney injury) DM2 (diabetes mellitus, type 2) KWAKU on CPAP Problems Ongoing - Any problem that you are currently receiving treatment for. Acquired hypothyroidism Altered bowel habits Amaurosis fugax Anemia of chronic disorder Anemia, hemolytic Aortic valve stenosis, mild Arthritis of right acromioclavicular joint Asthma Asthma Autoimmune hemolytic anemia, unspecified Cardiomyopathy, dilated Carotid artery aneurysm Cholecystitis, chronic Colon arteriovenous malformation Coronary artery disease Cystocele, midline Depression with anxiety Diabetes mellitus type 2 Diabetic polyneuropathy associated with type 2 diabetes mellitus Ductal carcinoma in situ (DCIS) of left breast 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 History of Hodgkin's disease History of ITP History of varicose veins of lower extremity Hyperlipidemia Hypertension Hypertriglyceridemia Hypothyroidism Idiopathic thrombocytopenia Isolation, social Lymphedema Mild stress incontinence Mitral regurgitation Mitral valve disorder Muscle cramps Neuropathy NHL - Non-Hodgkin's lymphoma Nocturnal hypoxemia Normocytic anemia Obstructive sleep apnea Osteoarthritis Peripheral vascular disease, unspecified Pharyngoesophageal dysphagia Presbylarynges Reactive depression Sleep apnea Thrombocytopenia 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 GERD - Gastro-esophageal reflux disease Tests Performed/Pending Automated Diff Blood Gas Venous BMP CBC w/ Diff CMP D-Dimer Glucose POCT Lactic Acid Magnesium Level Troponin-I High Sensitivity Urinalysis Microscopic Urinalysis with Micro if Indicated and Culture if Indicated XR Chest 1 View Discharge Vitals Temperature??(Oral) 97.3 ??F (36.3 ??C) Heart Rate??(Peripheral) 75 Respiratory Rate?? 14 Blood Pressure?? 114/44?? Height?? 64.57 in (164 cm) Weight?? 218.30 lb (99 kg) BMI?? 36.81 Allergies Flomax??(Dizziness) narcotic analgesics sulfa drugs??(Rash, Hallucinations) Education Materials Diabetes Mellitus and Nutrition, Adult When you have diabetes, or diabetes mellitus, it is very important to have healthy eating habits because your blood sugar (glucose) levels are greatly affected by what you eat and drink. Eating healthy foods in the right amounts, at about the same times every day, can help you: ? Manage your blood glucose. ? Lower your risk of heart disease. ? Improve your blood pressure. ? Reach or maintain a healthy weight. What can affect my meal plan? Every person with diabetes is different, and each person has different needs for a meal plan. Your health care provider may recommend that you work with a dietitian to make a meal plan that is best for you. Your meal plan may vary depending on factors such as: ? The calories you need. ? The medicines you take. ? Your weight. ? Your blood glucose, blood pressure, and cholesterol levels. ? Your activity level. ? Other health conditions you have, such as heart or kidney disease. How do carbohydrates affect me? Carbohydrates, also called carbs, affect your blood glucose level more than any other type of food.Eating carbs raises the amount of glucose in your blood. It is important to know how many carbs you can safely have in each meal. This is different for every person. Your dietitian can help you calculate how many carbs you should have at each meal and for each snack. How does alcohol affect me? Alcohol can cause a decrease in blood glucose (hypoglycemia), especially if you use insulin or takecertain diabetes medicines by mouth. Hypoglycemia can be a life-threatening condition. Symptoms of hypoglycemia, such as sleepiness, dizziness, and confusion, are similar to symptoms of having too much alcohol. ? Do not drink alcohol if: ? Your health care provider tells you not to drink. ? You are , may be , or are planning to become . ? If you drink alcohol: ? Limit how much you have to: ? 0???1 drink a day for women. ? 0???2 drinks a day for men. ? Know how much alcohol is in your drink. In the [place] one drink equals one 12 oz bottle of beer (355mL), one 5 oz glass of wine (148 mL), or one 1?? oz glass of hard liquor (44 mL). ? Keep yourself hydrated with water, diet soda, or unsweetened iced tea. Keep in mind that regular soda, juice, and other mixers may contain a lot of sugar and must be counted as carbs. What are tips for following this plan? Reading food labels ? Start by checking the serving size on the Nutrition Facts label of packaged foods and drinks. The number of calories and the amount of carbs, fats, and other nutrients listed on the label are based on one serving of the item. Many items contain more than one serving per package. ? Check the total grams (g) of carbs in one serving. ? Check the number of grams of saturated fats and trans fats in one serving. Choose foods that have alow amount or none of these fats. ? Check the number of milligrams (mg) of salt (sodium) in one serving. Most people should limit totalsodium intake to less than 2,300 mg per day. ? Always check the nutrition information of foods labeled as low-fat or nonfat. These foods may be higher in added sugar or refined carbs and should be avoided. ? Talk to your dietitian to identify your daily goals for nutrients listed on the label. Shopping ? Avoid buying canned, pre-made, or processed foods. These foods tend to be high in fat, sodium, and added sugar. ? Shop around the outside edge of the grocery store. This is where you will most often find fresh fruits and vegetables, bulk grains, fresh meats, and fresh dairy products. Cooking ? Use low-heat cooking methods, such as baking, instead of high-heat cooking methods, such as deep frying. ? Cook using healthy oils, such as olive, canola, or sunflower oil. ? Avoid cooking with butter, cream, or high-fat meats. Meal planning ? Eat meals and snacks regularly, preferably at the same times every day. Avoid going long periods oftime without eating. ? Eat foods that are high in fiber, such as fresh fruits, vegetables, beans, and whole grains. ? Eat 4???6 oz (112???168 g) of lean protein each day, such as lean meat, chicken, fish, eggs, or tofu. One ounce (oz) (28 g) of lean protein is equal to: ? 1 oz (28 g) of meat, chicken, or fish. ? 1 egg. ? cup (62 g) of tofu. ? Eat some foods each day that contain healthy fats, such as avocado, nuts, seeds, and fish. What foods should I eat? Fruits Berries. Apples. Oranges. Peaches. Apricots. Plums. Grapes. Mangoes. Papayas. Pomegranates. Kiwi. Cherries. Vegetables Leafy greens, including lettuce, spinach, kale, chard, armen greens, mustard greens, and cabbage.Beets. Cauliflower. Broccoli. Carrots. Green beans. Tomatoes. Peppers. Onions. Cucumbers. [place] sprouts. Grains Whole grains, such as whole-wheat or whole-grain bread, crackers, tortillas, cereal, and pasta. Unsweetened oatmeal. Quinoa. Brown or wild rice. Meats and other proteins Seafood. Poultry without skin. Lean cuts of poultry and beef. Tofu. Nuts. Seeds. Dairy Low-fat or fat-free dairy products such as milk, yogurt, and cheese. The items listed above may not be a complete list of foods and beverages you can eat and drink. Contact a dietitian for more information. What foods should I avoid? Fruits Fruits canned with syrup. Vegetables Canned vegetables. Frozen vegetables with butter or cream sauce. Grains Refined white flour and flour products such as bread, pasta, snack foods, and cereals. Avoid all processed foods. Meats and other proteins Fatty cuts of meat. Poultry with skin. Breaded or fried meats. Processed meat. Avoid saturated fats. Dairy Full-fat yogurt, cheese, or milk. Beverages Sweetened drinks, such as soda or iced tea. The items listed above may not be a complete list of foods and beverages you should avoid. Contact a dietitian for more information. Questions to ask a health care provider ? Do I need to meet with a certified diabetes care and associate professor of education? Do I need to meet with a dietitian? What number can I call if I have questions? When are the best times to check my blood glucose? Where to find more information: ? [place] Diabetes Association: diabetes.org ? Academy of Nutrition and Dietetics: eatright.org ? National [place] of Diabetes and Digestive and Kidney Diseases: niddk.nih.gov ? Association of Diabetes Care & Education Specialists: diabeteseducator.org Summary ? It is important to have healthy eating habits because your blood sugar (glucose) levels are greatlyaffected by what you eat and drink. It is important to use alcohol carefully. ? A healthy meal plan will help you manage your blood glucose and lower your risk of heart disease. ? Your health care provider may recommend that you work with a dietitian to make a meal plan that is best for you. This information is not intended to replace advice given to you by your health care provider. Make sure you discuss any questions you have with your health care provider. Document Revised: 05/29/2021 Document Reviewed: 05/29/2021 [employer] Patient Education ?? 2022 [employer]. Medication Information albuterol inhalation?? (al BYOO ter all) ?? ProAir HFA, ProAir RespiClick, Proventil HFA, Ventolin HFA? What is the most important information I should know about albuterol ??inhalation? Follow all directions on your medicine label and package. Tell each of your healthcare providers about all your medical conditions, allergies, and all medicines you use. ?? What is albuterol inhalation? Albuterol inhalation is a bronchodilator that is used to treat or prevent bronchospasm in people with reversible obstructive airway disease. ??Albuterol is also used to prevent exercise-induced bronchospasm. ?? Albuterol inhalation is for use in adults and children at least 4 years old.? Albuterol inhalation may also be used for purposes not listed in this medication guide. ?? What should I discuss with my healthcare provider before using albuterol inhalation? You should not use this medicine if you are allergic to albuterol. ? You should not use??ProAir RespiClick??if you are allergic to milk proteins. ?? Tell your doctor if you have ever had: ?heart disease, high blood pressure; ?a thyroid disorder; ?seizures; ?diabetes; or?low levels of potassium in your blood. ?? Tell your doctor if you are or plan to become . ??It is not known whether albuterol will harm an unborn baby. ??However, having uncontrolled asthma during may increase the risk of premature , low weight, or eclampsia (dangerously high blood pressure that can lead to medical problems in both mother and baby). ??The benefit of preventing bronchospasm may outweigh any risks to the baby. ?? If you are , your name may be listed on a registry to track the effects of albuterol on the baby. ?? It may not be safe to breastfeed while using this medicine. Ask your doctor about any risk. ?? How should I use albuterol inhalation? Follow all directions on your prescription label and read all medication guides. ??Use the medicineexactly as directed. ?? Do not allow a young child to use albuterol inhalation without help from an adult. ?? To prevent exercise-induced bronchospasm, use this medicine 15 to 30 minutes before you exercise. ??The effects of albuterol inhalation should last about 4 to 6 hours. ? Seek medical attention if your breathing problems get worse quickly, or if you think your asthma medications are not working as well. ?? Read and carefully follow any Instructions for Use provided with your medicine.?Ask your doctor or pharmacist if you do not understand these instructions. ?? ProAir HFA, Proventil HFA, or??Ventolin HFA??must be shaken before each use. You do not need to shake??ProAir RespiClick??before using. ?? Do not try to clean or take apart the ProAir RespiClick inhaler device.? Always use the new inhaler device provided with your refill. ??Do not float a medicine canister in water to see if it is empty.? Your dose needs may change due to surgery, illness, stress, or a recent asthma attack. ??Do not change your dose or dosing schedule without your doctor's advice. ? Store at room temperature away from moisture, heat, or cold temperatures. ? Keep the cover on your??ProAir RespiClick??inhaler when not in use. ??Store??Proventil??or??Ventolin??with the mouthpiece down. ? Keep the inhaler canister away from open flame or high heat. ??The canister may explode if it gets too hot. ??Do not puncture or burn an empty inhaler canister. ?? What happens if I miss a dose? Use the medicine as soon as you can, but skip the missed dose if it is almost time for your next dose. ??Do not??use two doses at one time. ?? Get your prescription refilled before you run out of medicine completely. ?? What happens if I overdose? Seek emergency medical attention or call the Poison Help line at . ??An overdose of albuterol can be fatal. ?? Overdose symptoms may include dry mouth, tremors, chest pain, fast heartbeats, nausea, general ill feeling, seizure, feeling light-headed or fainting. ?? What should I avoid while using albuterol inhalation? Rinse with water if this medicine gets in your eyes. ?? What are the possible side effects of albuterol inhalation? Get emergency medical help if you have??signs of an allergic reaction: ??hives; difficult breathing; swelling of your face, lips, tongue, or throat. ?? Call your doctor at once if you have: ?wheezing, choking, or other breathing problems after using this medicine; ?chest pain, fast heart rate, pounding heartbeats or fluttering in your chest; ?severe headache, pounding in your neck or ears; ?pain or burning when you urinate; ?high blood sugar--increased thirst, increased urination, dry mouth, fruity breath odor; or ?low potassium--leg cramps, constipation, irregular heartbeats, increased thirst or urination, numbness or tingling, muscle weakness or limp feeling. ?? Common side effects may include: ?chest pain, fast or pounding heartbeats; ?upset stomach, vomiting; ?painful urination; ?dizziness; ?feeling shaky or nervous; ?headache, back pain, body aches; or ?cough, sore throat, sinus pain, runny or stuffy nose. ?? This is not a complete list of side effects and others may occur. Call your doctor for medical advice about side effects. You may report side effects to FDA at 1-122-TFN-1487. ?? What other drugs will affect albuterol inhalation? Tell your doctor about all your other medicines, especially: ?any other inhaled medicines or bronchodilators; ?digoxin; ?a diuretic or 'water pill'; ?an antidepressant--amitriptyline, desipramine, imipramine, doxepin, nortriptyline, and others; ?a beta jennifer--atenolol, carvedilol, labetalol, metoprolol, propranolol, sotalol, and others; or ?an MAO inhibitor--isocarboxazid, linezolid, methylene blue injection, phenelzine, rasagiline, selegiline, tranylcypromine, and others. ?? This list is not complete. ??Other drugs may affect albuterol inhalation, including prescription and ttta-hgd-zjwywza medicines, vitamins, and herbal products. ??Not all possible drug interactions are listed here. ?? Where can I get more information? Your pharmacist can provide more information about albuterol inhalation. ?? Remember, keep this and all other medicines out of the reach of children, never share your medicines with others, and use this medication only for the indication prescribed. ?? Every effort has been made to ensure that the information provided by [employer]. [employer]') is accurate, up-to-date, and complete, but no guarantee is made to that effect. Drug information contained herein may be time sensitive. [employer] information has been compiled for use by healthcare practitioners and consumers in the [place] and therefore [employer] does not warrant that uses outside of the [place] are appropriate, unless specifically indicated otherwise. [employer] drug information does not endorse drugs, diagnose patients or recommend therapy. [employer] drug information isan informational resource designed to assist licensed healthcare practitioners in caring for their p atients and/or to serve consumers viewing this service as a supplement to, and not a substitute for, the expertise, skill, knowledge and judgment of healthcare practitioners. The absence of a warningfor a given drug or drug combination in no way should be construed to indicate that the drug or drug combination is safe, effective or appropriate for any given patient. [employer] does not assume any responsibility for any aspect of healthcare administered with the aid of information [employer] provides. The information contained herein is not intended to cover all possible uses, directions, precautions, warnings, drug interactions, allergic reactions, or adverse effects. If you have questions about the drugs you are taking, check with your doctor, nurse or pharmacist.? Copyright 1823-0459 [employer]. Version: 08.09. Revision Date: 09/26/2020. ?? metoprolol (oral/injection)?? (me TOE pro lol) ?? [place]sp[place] Sprinkle, Lopressor, Metoprolol Succinate ER, Metoprolol Tartrate, Toprol-XL? What is the most important information I should know about metoprolol? You should not use this medicine if you have a serious heart problem (heart block, sick sinus syndrome, slow heart rate), severe circulation problems, severe heart failure, or a history of slow heartbeats that caused fainting. ?? What is metoprolol? Metoprolol is a beta-jennifer that affects the heart and circulation (blood flow through arteries and veins). ?? Metoprolol is used to treat angina (chest pain) and hypertension (high blood pressure). ??It is also used to ??lower your risk of or needing to be hospitalized for heart failure. ?? Metoprolol??injection??is used during the early phase of a heart attack to lower the risk of . ?? Metoprolol may also be used for other purposes not listed in this medication guide. ?? What should I discuss with my healthcare provider before taking metoprolol? You should not use this medicine if you are allergic to metoprolol, or other beta-blockers (atenolol, carvedilol, labetalol, nadolol, nebivolol, propranolol, sotalol, and others), or if you have: ?a serious heart problem such as heart block, sick sinus syndrome, or slow heart rate; ?severe circulation problems; ?severe heart failure (that required you to be in the hospital); or ?a history of slow heart beats that have caused you to faint. ?? Tell your doctor if you have ever had: ?asthma, chronic obstructive pulmonary disease (COPD), sleep apnea, or other breathing disorder; ?diabetes (taking metoprolol may make it harder for you to tell when you have low blood sugar); ?liver disease; ?congestive heart failure; ?problems with circulation (such as Raynaud's syndrome); ?a thyroid disorder; or ?pheochromocytoma (tumor of the adrenal gland). ?? Do not give this medicine to a child without medical advice. ?? Tell your doctor if you are or plan to become . ??It is not known whether metoprolol will harm an unborn baby. ??However, having high blood pressure during may cause complications such as diabetes or eclampsia (dangerously high blood pressure that can lead to medical problems in both mother and baby). ??The benefit of treating hypertension may outweigh any risks to the baby.? Ask a doctor before using this medicine if you are breast-feeding.?Metoprolol can pass into breast milk and may cause dry skin, dry mouth, diarrhea, constipation, or slow heartbeats in your baby. ? How should I take metoprolol? Follow all directions on your prescription label and read all medication guides or instruction sheets. ??Your doctor may occasionally change your dose. ??Use the medicine exactly as directed. ?? Metoprolol should be taken with a meal or just after a meal. ?? Take the medicine at the same time each day. ? Swallow the??capsule??whole and do not crush, chew, break, or open it. ?? A??Toprol XL??tablet can be divided in half if your doctor has told you to do so. ??Swallow the half-tablet whole, without chewing or crushing. ? Measure??liquid medicine??carefully. Use the dosing syringe provided, or use a medicine dose-measuring device (not a kitchen spoon). ?? You will need frequent medical tests, and your blood pressure will need to be checked often. ?? If you need surgery, tell the surgeon ahead of time that you are using metoprolol. ? You should not stop using metoprolol suddenly.?Stopping suddenly may make your condition worse. ?? If you have high blood pressure,??keep using this medicine even if you feel well.?High blood pressure often has no symptoms. ??You may need to use metoprolol for the rest of your life. ?? Store at room temperature away from moisture and heat. ?? Metoprolol??injection??is given as an infusion into a vein. ??A healthcare provider will give you this injection in a medical setting where your heart and blood pressure can be monitored. ??Metoprolol injections are given for only a short time before switching you to the??oral??form of this medicine. ? What happens if I miss a dose? Skip the missed dose and use your next dose at the regular time. ??Do not??use two doses at one time. ?? What happens if I overdose? Seek emergency medical attention or call the Poison Help line at . ?? What should I avoid while taking metoprolol? Avoid driving or hazardous activity until you know how this medicine will affect you. ??Your reactions could be impaired. ?? Drinking alcohol can increase certain side effects of metoprolol. ?? What are the possible side effects of metoprolol? Get emergency medical help if you have??signs of an allergic reaction:?hives; difficulty breathing; swelling of your face, lips, tongue, or throat. ?? Call your doctor at once if you have: ?very slow heartbeats; ?a light-headed feeling, like you might pass out; ?shortness of breath (even with mild exertion), swelling, rapid weight gain; or ?cold feeling in your hands and feet. ?? Common side effects may include: ?dizziness, tired feeling; ?depression, confusion, memory problems; ?nightmares, trouble sleeping; ?diarrhea; or ?mild itching or rash. ?? This is not a complete list of side effects and others may occur. Call your doctor for medical advice about side effects. You may report side effects to FDA at 2-771-KWF-6864. ?? What other drugs will affect metoprolol? Tell your doctor about all your current medicines.?Many drugs can affect metoprolol, especially: ?any other heart or blood pressure medications; ?epinephrine (Epi-Pen); ?an antidepressant; ?an ergot medicine--dihydroergotamine, ergonovine, ergotamine, methylergonovine; or ?an MAO inhibitor--isocarboxazid, linezolid, phenelzine, rasagiline, selegiline, tranylcypromine. ?? This list is not complete and many other drugs may affect metoprolol.??This includes prescription and ujfz-dem-cfghkpf medicines, vitamins, and herbal products. Not all possible drug interactions arelisted here. ?? Where can I get more information? Your pharmacist can provide more information about metoprolol. ?? Remember, keep this and all other medicines out of the reach of children, never share your medicines with others, and use this medication only for the indication prescribed. ?? Every effort has been made to ensure that the information provided by [email or web address]. [employer]') is accurate, up-to-date, and complete, but no guarantee is made to that effect. Drug information contained herein may be time sensitive. [employer] information has been compiled for use by healthcare practitioners and consumers in the [place] and therefore [employer] does not warrant that uses outside of the [place] are appropriate, unless specifically indicated otherwise. [employer] drug information does not endorse drugs, diagnose patients or recommend therapy. [employer] drug information isan informational resource designed to assist licensed healthcare practitioners in caring for their p atients and/or to serve consumers viewing this service as a supplement to, and not a substitute for, the expertise, skill, knowledge and judgment of healthcare practitioners. The absence of a warningfor a given drug or drug combination in no way should be construed to indicate that the drug or drug combination is safe, effective or appropriate for any given patient. [employer] does not assume any responsibility for any aspect of healthcare administered with the aid of information [employer] provides. The information contained herein is not intended to cover all possible uses, directions, precautions, warnings, drug interactions, allergic reactions, or adverse effects. If you have questions about the drugs you are taking, check with your doctor, nurse or pharmacist.? Copyright 3715-2528 [email or web address]. Version: 19.. Revision Date: 06/17/2023. ?? empagliflozin?? (VIKASH cartagena) ?? Jardiance? What is the most important information I should know about empagliflozin? Call your doctor at once if you have??signs of a serious side effect, such as stomach pain, vomiting, tiredness, or trouble breathing. ?? Tell your doctor if you are sick with vomiting or diarrhea, or if you eat or drink less than usual. ?? Empagliflozin can cause serious infections around the penis or vagina.??Get medical help right awayif you have burning, itching, odor, discharge, pain, tenderness, redness or swelling of the genitalor rectal area, fever, or if you don't feel well.? What is empagliflozin? Empagliflozin is used together with diet and exercise to lower blood sugar levels in adults and children at least 10 years old with type 2 diabetes. ? Empagliflozin is also used to lower the risk of from heart attack, stroke, or heart failure in adults with type 2 diabetes who also have heart disease. ?? Empagliflozin is also used in adults to lower the risk of dying or needing to be in a hospital for heart failure when the heart cannot pump blood properly. ?? Empagliflozin is not for treating type 1 diabetes. ?? Empagliflozin may also be used for purposes not listed in this medication guide. ?? What should I discuss with my healthcare provider before taking empagliflozin? You should not use empagliflozin if you are allergic to it, or if you have: ?severe kidney disease (or if you are on dialysis). ?? Tell your doctor if you have or have ever had: ?a bladder infection or urination problems;?a genital infection (penis or vagina); ?problems with your pancreas, including surgery;?alcoholism, or if you currently drink large amounts of alcohol; ?if you are on a low salt diet, you are eating less, or there is a change in your diet; ?if you are 65 or older; or ?liver or kidney disease. ?? Follow your doctor's instructions about using this medicine??if you are or you become .??Controlling diabetes is very important during .? You should not use empagliflozin during the second or third trimester of . ?? Do not breastfeed. ?? How should I take empagliflozin? Follow all directions on your prescription label and read all medication guides or instruction sheets. Your doctor may occasionally change your dose. Use the medicine exactly as directed. ?? Take empagliflozin once a day in the morning, with or without food. ?? Your blood sugar will need to be checked often, and you may also need to test the level of ketones in your urine.??Empagliflozin can cause life-threatening ketoacidosis (too much acid in the blood).??Even if your blood sugar is normal, contact your doctor if a urine test shows that you have high ketones in the urine.? Blood sugar can be affected by stress, illness, surgery, exercise, alcohol use, or skipping meals.? Low blood sugar??(hypoglycemia)??can make you feel very hungry, dizzy, irritable, or shaky. To quickly treat hypoglycemia, eat or drink hard candy, crackers, raisins, fruit juice, or non-diet soda. Your doctor may prescribe glucagon injection in case of severe hypoglycemia. ?? You may get dehydrated during prolonged illness. Call your doctor if you are sick with vomiting or diarrhea. ?? This medicine can affect the results of certain medical tests. Tell any doctor who treats you that you are using empagliflozin. ?? Your treatment may also include diet, exercise, weight control, and special medical care. ?? Tell your doctor if you have a planned surgery. ?? Store at room temperature away from moisture and heat. ?? What happens if I miss a dose? Take the medicine as soon as you can, but skip the missed dose if it is almost time for your next dose.??Do not??take two doses at one time.? What happens if I overdose? Seek emergency medical attention or call the Poison Help line at .? What should I avoid while taking empagliflozin? Avoid drinking alcohol. ?? Avoid getting up too fast from a sitting or lying position, or you may feel dizzy. ?? What are the possible side effects of empagliflozin? Get emergency medical help if you have??signs of an allergic reaction: hives, difficult breathing, swelling of your face, lips, tongue, or throat. ?? Seek medical attention right away if you have signs of a serious genital infection (penis or vagina):?burning, itching, odor, discharge, pain, tenderness, redness or swelling of the genital or rectal area, fever, not feeling well.??These symptoms may get worse quickly. ?? Call your doctor at once if you have: ?a light-headed feeling, like you might pass out; ?low blood sugar--headache, hunger, weakness, sweating, confusion, irritability, dizziness, fastheart rate, or feeling jittery; ?dehydration--dizziness, confusion, feeling very thirsty, less urination; ?ketoacidosis (too much acid in the blood)--nausea, vomiting, stomach pain, confusion, unusual drowsiness, or trouble breathing; or ?signs of a bladder infection--pain or burning when you urinate, blood in your urine, pain in pelvis or back. ?? Common side effects may include: ?a bladder infection; or ?yeast infection in women (vaginal itching or discharge). ?? This is not a complete list of side effects and others may occur. Call your doctor for medical advice about side effects. You may report side effects to FDA at 0-175-AHH-4520. ?? What other drugs will affect empagliflozin? Tell your doctor about all your other medicines, especially: ?insulin, or other oral diabetes medicine; or ?a diuretic or 'water pill.' ?? This list is not complete. Other drugs may affect empagliflozin, including prescription and ugvo-dxp-lagxvyb medicines, vitamins, and herbal products. Not all possible drug interactions are listed here. ?? Where can I get more information? Your doctor or pharmacist can provide more information about empagliflozin. ?? Remember, keep this and all other medicines out of the reach of children, never share your medicines with others, and use this medication only for the indication prescribed. ?? Every effort has been made to ensure that the information provided by [employer] is accurate, up-to-date, and complete, but no guarantee is made to that effect. Drug information contained herein may be time sensitive. [employer] information has been compiled for use by healthcare practitioners and consumers in the [place] and therefore [employer] does not warrant that uses outside of the [place] are appropriate, unless specifically indicated otherwise. [employer] drug information does not endorse drugs, diagnose patients or recommend therapy. [facility] information isan informational resource designed to assist licensed healthcare practitioners in caring for their p atients and/or to serve consumers viewing this service as a supplement to, and not a substitute for, the expertise, skill, knowledge and judgment of healthcare practitioners. The absence of a warningfor a given drug or drug combination in no way should be construed to indicate that the drug or drug combination is safe, effective or appropriate for any given patient. [facility] does not assume any responsibility for any aspect of healthcare administered with the aid of information [facility] provides. The information contained herein is not intended to cover all possible uses, directions, precautions, warnings, drug interactions, allergic reactions, or adverse effects. If you have questions about the drugs you are taking, check with your doctor, nurse or pharmacist.? Copyright [id number] [email or web address]. Version: 6.. Revision Date: 07/06/2023. ?? levothyroxine (oral/injection)?? (MIKAYLA vofab thye DMITRIY een) ?? Ermeza, Euthyrox, Levo-T, Levoxyl, Synthroid, Thyquidity, Tirosint, Tirosint- Dot, Unithroid? What is the most important information I should know about levothyroxine? You may not be able to use levothyroxine if you have certain medical conditions.??Tell your doctor if you have an untreated or uncontrolled adrenal gland disorder or any heart problems such as a recent heart attack. ?? Levothyroxine should not be used to treat obesity or weight problems. ?? Taking more than your recommended dose will not make this medicine more effective, and may cause serious side effects. ?? What is levothyroxine? Levothyroxine??oral??is used in adults and children to treat hypothyroidism (underactive thyroid). ?? Levothyroxine??oral??is also used in adults along with surgery and radioactive iodine therapy to treat a certain type of thyroid cancer. ?? Levothyroxine??oral capsule??can only be used in adults and children at least 6 years old. ?? Levothyroxine??injection??is used in adults to treat myxedema coma. ?? There are many brand forms of levothyroxine available. Not all brands are listed on this medicationguide. ?? Levothyroxine may also be used for purposes not listed in this medication guide. ?? What should I discuss with my healthcare provider before using levothyroxine? Levothyroxine should not be used to treat obesity or weight problems.??Dangerous side effects or can occur from the misuse of levothyroxine, especially if you are taking any other weight-loss medications or appetite suppressants. ?? You should not use levothyroxine if you are allergic to glycerin or edetate disodium, or if you have an untreated or uncontrolled adrenal gland disorder. ?? Tell your doctor if you have or have ever had: ?a thyroid nodule; ?thyroiditis (inflammation of thyroid gland); ?heart problems such as a heart attack, stroke; ?a blood clot or a blood clotting disorder; ?diabetes (your diabetes medicine may need to be adjusted); ?anemia (low red blood cells); ?weak bones (osteoporosis), or low bone mineral density; ?problems with your pituitary or adrenal gland; ?an allergy to any food or drugs; ?recently received radiation therapy with iodine (such as I-131); or ?kidney disease. ?? Tell your doctor if you are or plan to become . Having hypothyroidism during may increase the risk of premature or other complications. The benefit of treating hypothyroidism may outweigh any risks to the baby.??Your dose needs may be different during . ?? Tell your doctor if you are .??Your dose needs may be different while you are nursing. ?? You may be more likely to have a broken bone while using levothyroxine. Talk with your doctor aboutways to keep your bones healthy. ?? How should I use levothyroxine? Follow all directions on your prescription label and read all medication guides or instruction sheets. Your doctor may occasionally change your dose. Use the medicine exactly as directed. ?? Levothyroxine??oral??is taken by mouth. Levothyroxine??injection??is given into a vein. ?? Take levothyroxine??oral??on an empty stomach, at least 30 to 60 minutes before breakfast with a full glass of water. Take the medicine at the same time each day. ?? Swallow the??capsule??whole and do not crush, chew, break, or open it. ?? If you cannot swallow a tablet whole,??crush the tablet, and mix with 1 or 2 teaspoons of water; give the mixture right away. Do not save it for later use. ?? Tell your doctor if your child cannot swallow a capsule whole. ?? Measure??liquid medicine??with the supplied measuring device (not a kitchen spoon). ?? Doses are based on weight in children and teenagers. Your child's dose may change if the child gains or loses weight. ?? Your dose needs may change if you switch to a different brand, strength, or form of this medicine.??Avoid medication errors by using only the medicine your doctor prescribes. ?? Keep using this medicine even if you feel well.??You may not fully benefit from this medicine for several weeks. ?? You will need frequent medical tests, and your next dose may be delayed based on the results. ?? This medicine can affect the results of certain medical tests. Tell any doctor who treats you that you are using levothyroxine. ?? Tell your doctor if you have a planned surgery or dental procedure. ?? Taking more than your recommended dose will not make this medicine more effective, and may cause serious side effects. ?? Keep each??tablet??or??capsule??in the blister pack until you are ready to take one. ?? Store??Ermeza??and??Thyquidity??in original bottle. Use??Ermeza??within 90 days and??Thyquidity??within 8 weeks of opening the bottle. ?? Use??Tirosint-Dot??within 3 months after opening the pouch. ?? Store at room temperature away from moisture, heat, and light. ?? What happens if I miss a dose? In a medical setting you are not likely to miss a dose of levothyroxine??injection. ?? Take the levothyroxine??oral??as soon as you remember, and then go back to your regular schedule.??Do not??use two doses at one time. ?? What happens if I overdose? Seek emergency medical attention or call the Poison Help line at .??An overdose can be fatal. ?? Overdose symptoms may include headache, leg cramps, tremors, feeling nervous or irritable, chest pain, shortness of breath, fast or pounding heartbeats, stroke, and coma. ?? What should I avoid while using levothyroxine? Avoid the following food products within 1 hour of taking levothyroxine oral or the medication willnot be as effective:??grapefruit juice, infant soy formula, soybean flour, cotton seed meal, walnuts, and high-fiber foods.? What are the possible side effects of levothyroxine? Get emergency medical help if you have??signs of an allergic reaction: hives, difficult breathing, swelling of your face, lips, tongue, or throat. ?? Call your doctor at once if you have: ?sudden pain or trouble moving your hip, wrist, or back; ?fast or irregular heartbeats; ?chest pain, pain spreading to your jaw or shoulder; ?wheezing; ?fever, swollen glands, itching, joint pain, or not feeling well; ?nausea, vomiting, or diarrhea; or ?high blood sugar--increased thirst, increased urination, dry mouth, fruity breath odor. ?? Common side effects may include: ?fever, hot flashes, increased sweating; ?tiredness; ?skin rash, hair loss; ?chest pain, fast or irregular heartbeats, shortness of breath; ?headache, leg cramps, muscle pain or weakness; ?tremors, feeling nervous or irritable, sleep problems (insomnia); ?increased or change in appetite; ?weight loss or weight gain; ?changes in your menstrual periods; or ?vomiting, diarrhea. ?? This is not a complete list of side effects and others may occur. Call your doctor for medical advice about side effects. You may report side effects to FDA at 9-550-ZFM-3594. ?? What other drugs will affect levothyroxine? Sometimes it is not safe to use certain medicines at the same time.??Some drugs can affect your thyroid hormone levels and also make levothyroxine less effective. ?? If you use any of the following drugs, avoid taking them within 4 hours before or 4 hours after youuse levothyroxine: ?calcium carbonate (Munira-Mints, Caltrate, Os-Bassam, Oyster Shell Calcium, Rolaids Soft Chew, Tums,and others); ?sevelamer, lanthanum; ?cholestyramine, colesevelam, colestipol; ?iron supplements; ?sucralfate; ?sodium polystyrene sulfonate (Kalexate, Kayexalate, Kionex); ?stomach acid reducers--esomeprazole, lansoprazole, omeprazole, rabeprazole, Nexium, Prilosec, Prevacid, Protonix, Zegerid, and others; or ?antacids that contain aluminum or magnesium--Gaviscon, Maalox, Milk of Magnesia, Mintox, Mylanta, Pepcid Complete, and others. ?? Tell your doctor about all your other medicines, especially: ?orlistat; ?phenobarbital, rifampin; ?ketamine, steroid medicines; ?antidepressants such as amitriptyline or maprotiline; ?heart or blood pressure medication; ?diabetes medications; ?cancer medicine such as imatinib; or ?a blood thinner--warfarin, Coumadin, Jantoven. ?? This list is not complete and many other drugs may affect levothyroxine.??This includes prescription and aodz-gaq-zqhkkqp medicines, vitamins, and herbal products. Not all possible drug interactions are listed here. ?? Where can I get more information? Your doctor or pharmacist can provide more information about levothyroxine. ?? Remember, keep this and all other medicines out of the reach of children, never share your medicines with others, and use this medication only for the indication prescribed. ?? Every effort has been made to ensure that the information provided by [employer] is accurate, up-to-date, and complete, but no guarantee is made to that effect. Drug information contained herein may be time sensitive. [employer] information has been compiled for use by healthcare practitioners and consumers in the [place] and therefore [employer] does not warrant that uses outside of the [place] are appropriate, unless specifically indicated otherwise. [employer] drug information does not endorse drugs, diagnose patients or recommend therapy. [employer] drug information isan informational resource designed to assist licensed healthcare practitioners in caring for their p atients and/or to serve consumers viewing this service as a supplement to, and not a substitute for, the expertise, skill, knowledge and judgment of healthcare practitioners. The absence of a warningfor a given drug or drug combination in no way should be construed to indicate that the drug or drug combination is safe, effective or appropriate for any given patient. [employer] does not assume any responsibility for any aspect of healthcare administered with the aid of information [employer] provides. The information contained herein is not intended to cover all possible uses, directions, precautions, warnings, drug interactions, allergic reactions, or adverse effects. If you have questions about the drugs you are taking, check with your doctor, nurse or pharmacist.? Copyright [id number] [employer]. Version: 18.. Revision Date: 07/23/2023. ?? atorvastatin?? (a TOR va sta tin) ?? Atorvaliq, Lipitor? What is the most important information I should know about atorvastatin? You should not take atorvastatin if you have liver disease or cirrhosis. ?? Atorvastatin can cause the breakdown of muscle tissue, which can lead to kidney failure. ??Call your doctor right away if you have unexplained muscle pain, tenderness, or weakness especially if you also have fever, unusual tiredness, or dark urine. ?? What is atorvastatin? Atorvastatin is used together with diet to lower blood levels of 'bad' cholesterol (low-density lipoprotein, or LDL), to increase levels of 'good' cholesterol (high-density lipoprotein, or HDL), and to lower triglycerides (a type of fat in the blood). ?? Atorvastatin is used to lower the risk of stroke, heart attack, or other heart complications in adults with or without type 2 diabetes or heart disease or other risk factors.? Atorvastatin is also used alone, or along with diet, or with other cholesterol- lowering medicationsin adults and children aged 10 years and older with an inherited condition that causes high levels of bad cholesterol. ?? Atorvastatin may also be used for purposes not listed in this medication guide. ?? What should I discuss with my healthcare provider before taking atorvastatin? You should not use atorvastatin if you are allergic to it, or if you have liver failure or cirrhosis. ?? Tell your doctor if you have or have ever had: ?muscle pain or weakness; ?diabetes; ?stroke; ?a thyroid disorder;?a habit of drinking more than 2 alcoholic beverages per day; or ?kidney disease. ?? Atorvastatin can cause the breakdown of muscle tissue, which can lead to kidney failure.??This happens more often in women, in older adults, or people who have kidney disease or poorly controlled hypothyroidism (underactive thyroid). ?? Atorvastatin may harm an unborn baby.??Tell your doctor if you are . ?? Ask a doctor if it is safe to breastfeed while using this medicine. ?? How should I take atorvastatin? Follow all directions on your prescription label and read all medication guides or instruction sheets. ??Your doctor may occasionally change your dose. Use the medicine exactly as directed. ?? Do not change your dose or stop taking any of your medications without your doctor's advice.? Atorvastatin is usually taken once per day. Follow your doctor's instructions. ?? You may take??atorvastatin tablet??with or without food. ?? Take??atorvastatin liquid??medicine on an empty stomach, at least 1 hour before a meal or 2 hours after a meal. ?? It may take up to 2 weeks before your cholesterol levels improve, and you may need frequent blood tests. ??Even if you have no symptoms, tests can help your doctor determine if this medicine is effective. ?? Shake the??oral suspension??(liquid). Measure a dose with the supplied measuring device (not a kitchen spoon). ?? Your treatment may also include diet, exercise, weight control, and blood tests.? Store at room temperature away from moisture, heat, and light. ?? Throw away in the trash any unused liquid 60 days after opening the bottle. ?? What happens if I miss a dose? Take the medicine as soon as you can, but skip the missed dose if you are more than 12 hours late for the dose.??Do not??take two doses at one time.? What happens if I overdose? Seek emergency medical attention or call the Poison Help line at . ?? What should I avoid while taking atorvastatin? Avoid eating foods high in fat or cholesterol, or atorvastatin will not be as effective. ?? Drinking alcohol may increase your risk of liver damage. ?? Grapefruit may interact with atorvastatin and cause side effects.??Avoid consuming grapefruit products and drinking more than 1.2 liters of grapefruit juice each day. ?? What are the possible side effects of atorvastatin? Get emergency medical help if you have??signs of an allergic reaction??(hives, difficult breathing,swelling in your face or throat)??or a severe skin reaction??(fever, sore throat, burning eyes, skin pain, red or purple skin rash with blistering and peeling). ?? Atorvastatin can cause the breakdown of muscle tissue, which can lead to kidney failure. Call your doctor right away if you have unexplained muscle pain, tenderness, or weakness especially if you also have fever, unusual tiredness, or dark urine. ?? Muscle problems may be more likely in older adults and those who have kidney problems, thyroid problems, or take certain other medicines. ?? Also call your doctor at once if you have: ?muscle weakness in your hips, shoulders, neck, and back; ?trouble lifting your arms, trouble climbing or standing; ?liver problems--loss of appetite, stomach pain (upper right side), tiredness, itching, dark urine, leo-colored stools, jaundice (yellowing of the skin or eyes); ?kidney problems--swelling, urinating less, feeling tired or short of breath; or ?high blood sugar--increased thirst, increased urination, dry mouth, fruity breath odor. ?? Common side effects may include: ?pain in your bones, spine, joints, or muscles; ?pain and burning when you urinate, painful urination; ?muscle spasms; ?upset stomach;?trouble sleeping; ?stuffy nose, runny nose, sore throat; ?diarrhea, nausea; or?pain in your arms or legs. ?? This is not a complete list of side effects and others may occur. Call your doctor for medical advice about side effects. You may report side effects to FDA at 4-881-EJP-9367. ?? What other drugs will affect atorvastatin? Sometimes it is not safe to use certain medicines at the same time.??Some drugs can affect your blood levels of other drugs you use, which can increase risk of serious muscle problems or make the medicines less effective.? Tell your doctor about all your current medicines.??Many drugs can affect atorvastatin, especially:?other cholesterol lowering medicine--gemfibrozil, niacin, fenofibrate, fenofibric acid, and others; ?colchicine; ?antibiotic or antifungal medicine--rifampin, erythromycin, clarithromycin, itraconazole, ketoconazole, posaconazole, and voriconazole; ? control pills; ?medicine to prevent organ transplant rejection; or ?antiviral medicine to treat hepatitis C or HIV.? This list is not complete and many other drugs may affect atorvastatin.??This includes prescriptionand butw-fww-wxuwqos medicines, vitamins, and herbal products. Not all possible drug interactions are listed here. ?? Where can I get more information? Your doctor or pharmacist can provide more information about atorvastatin. ?? Remember, keep this and all other medicines out of the reach of children, never share your medicines with others, and use this medication only for the indication prescribed. ?? Every effort has been made to ensure that the information provided by [employer]. ('[employer]') is accurate, up-to-date, and complete, but no guarantee is made to that effect. Drug information contained herein may be time sensitive. [employer] information has been compiled for use by healthcare practitioners and consumers in the [place] and therefore [employer] does not warrant that uses outside of the [place] are appropriate, unless specifically indicated otherwise. [employer] drug information does not endorse drugs, diagnose patients or recommend therapy. [employer] drug information isan informational resource designed to assist licensed healthcare practitioners in caring for their p atients and/or to serve consumers viewing this service as a supplement to, and not a substitute for, the expertise, skill, knowledge and judgment of healthcare practitioners. The absence of a warningfor a given drug or drug combination in no way should be construed to indicate that the drug or drug combination is safe, effective or appropriate for any given patient. [facility] does not assume any responsibility for any aspect of healthcare administered with the aid of information [facility] provides. The information contained herein is not intended to cover all possible uses, directions, precautions, warnings, drug interactions, allergic reactions, or adverse effects. If you have questions about the drugs you are taking, check with your doctor, nurse or pharmacist.? Copyright [id number] [employer]. Version: 23.. Revision Date: 04/30/2023. ?? losartan?? (mayte cisneros) ?? Cozaar? What is the most important information I should know about losartan? Do not use if you are . Stop using this medicine and tell your doctor right away if you become . ? Tell your doctor about all your other medicines.??Some drugs should not be used with losartan. ?? What is losartan? Losartan is used alone or in combination with other medicines to treat high blood pressure in adults and children at least 6 years old.? Lowering blood pressure may lower your risk of a stroke in certain people with heart disease. ?? Losartan is also used to slow long-term kidney damage in people with type 2 diabetes who have high blood pressure. ?? Losartan may also be used for purposes not listed in this medication guide. ?? What should I discuss with my healthcare provider before taking losartan? You should not use losartan if you are allergic to it. ?? If you have diabetes,??do not take losartan with any medication that contains aliskiren (a blood pressure medicine). ?? Tell your doctor if you have ever had: ?heart disease or congestive heart failure; ?an electrolyte imbalance (such as high levels of potassium in your blood);?if you are on a low-salt diet;?liver disease; or ?kidney disease. ?? You may also need to avoid taking losartan with aliskiren??if you have kidney disease. ?? Stop using this medicine and tell your doctor right away if you become .??Losartan can cause injury or to the unborn baby if you use the medicine during your second or third trimester. ?? Tell your doctor if you are . ?? How should I take losartan? Follow all directions on your prescription label and read all medication guides or instruction sheets. ??Your doctor may occasionally change your dose. ??Use the medicine exactly as directed. ?? Losartan is usually taken once per day. ?? You may take losartan with or without food. ?? Call your doctor if you are sick with vomiting or diarrhea, or if you are sweating more than usual.??You can easily become dehydrated while taking losartan. ??This can lead to very low blood pressure, a serious electrolyte imbalance, or kidney failure. ? Your blood pressure will need to be checked often and you may need frequent blood tests. ? If you have high blood pressure,??keep using this medicine even if you feel well.??High blood pressure often has no symptoms. ?? Store tightly closed at room temperature, away from moisture, heat, and light. ?? What happens if I miss a dose? Take the medicine as soon as you can, but skip the missed dose if it is almost time for your next dose.??Do not??take two doses at one time.? What happens if I overdose? Seek emergency medical attention or call the Poison Help line at . ?? What should I avoid while taking losartan? Avoid getting up too fast from a sitting or lying position, or you may feel dizzy. ?? Do not use potassium supplements or salt substitutes, unless your doctor has told you to. ?? What are the possible side effects of losartan? Get emergency medical help if you have??signs of an allergic reaction:?hives, difficulty breathing, swelling of your face, lips, tongue, or throat. ?? Call your doctor at once if you have: ?a light-headed feeling, like you might pass out; ?high blood potassium--nausea, weakness, tingly feeling, chest pain, irregular heartbeats, loss of movement; or ?kidney problems--swelling, urinating less, feeling tired or short of breath. ?? Common side effects may include: ?dizziness, tiredness; ?low blood pressure; ?low blood sugar; ?diarrhea; ?back pain; or ?cold symptoms such as stuffy nose, sneezing, sore throat. ?? This is not a complete list of side effects and others may occur. Call your doctor for medical advice about side effects. You may report side effects to FDA at 7-333-YAY-0592. ?? What other drugs will affect losartan? Sometimes it is not safe to use certain medicines at the same time.??Some drugs can affect your blood levels of other drugs you use, which may increase side effects or make the medicines less effective.? Tell your doctor about all your other medicines, especially: ?a diuretic or 'water pill' that may increase blood potassium such as spironolactone, triamterene, amiloride; ?NSAIDs (nonsteroidal anti-inflammatory drugs)--aspirin, ibuprofen (Advil, Motrin), naproxen (Aleve), celecoxib, diclofenac, indomethacin, meloxicam, and others; or ?heart or blood pressure medication. ?? This list is not complete. ??Other drugs may affect losartan, including prescription and fabh-eun-pbqsjcb medicines, vitamins, and herbal products. ??Not all possible drug interactions are listed here. ?? Where can I get more information? Your doctor or pharmacist can provide more information about losartan. ?? Remember, keep this and all other medicines out of the reach of children, never share your medicines with others, and use this medication only for the indication prescribed. ?? Every effort has been made to ensure that the information provided by [employer]. ('[employer]') is accurate, up-to-date, and complete, but no guarantee is made to that effect. Drug information contained herein may be time sensitive. [employer] information has been compiled for use by healthcare practitioners and consumers in the [place] and therefore [employer] does not warrant that uses outside of the [place] are appropriate, unless specifically indicated otherwise. [employer] drug information does not endorse drugs, diagnose patients or recommend therapy. [employer] drug information isan informational resource designed to assist licensed healthcare practitioners in caring for their p atients and/or to serve consumers viewing this service as a supplement to, and not a substitute for, the expertise, skill, knowledge and judgment of healthcare practitioners. The absence of a warningfor a given drug or drug combination in no way should be construed to indicate that the drug or drug combination is safe, effective or appropriate for any given patient. [facility] does not assume any responsibility for any aspect of healthcare administered with the aid of information [facility] provides. The information contained herein is not intended to cover all possible uses, directions, precautions, warnings, drug interactions, allergic reactions, or adverse effects. If you have questions about the drugs you are taking, check with your doctor, nurse or pharmacist.? Copyright 8517-3303 [facility]. Version: .. Revision Date: 05/07/2023. ?? alendronate?? (yenny garibay) ?? Binosto, Fosamax? What is the most important information I should know about alendronate? You should not take alendronate if you have problems with your esophagus, or low levels of calcium in your blood. ?? Do not take alendronate if you cannot sit upright or stand for at least 30 minutes after taking themedicine. ?? Alendronate can cause serious problems in the stomach or esophagus.??Stop using alendronate and call your doctor at once if you have chest pain, new or worsening heartburn, or pain when swallowing.? Also call your doctor if you have muscle spasms, numbness or tingling (in hands and feet or around the mouth), new or unusual hip pain, or severe pain in your joints, bones, or muscles. ?? What is alendronate? Alendronate is used to treat osteoporosis caused by menopause, steroid use, or gonadal failure. ??This medicine is for use when you have a high risk of bone fracture due to osteoporosis. ? Alendronate is also used to treat Paget's disease of bone. ?? Alendronate may also be used for purposes not listed in this medication guide. ?? What should I discuss with my healthcare provider before taking alendronate? You should not take alendronate if you are allergic to it, or if you have: ?low levels of calcium in your blood (hypocalcemia); or?problems with the muscles in your esophagus (the tube that connects your mouth and stomach). ?? Do not take alendronate if you cannot sit upright or stand for at least 30 minutes.?Alendronate can cause serious problems in the stomach or esophagus. You must stay upright for at least 30 minutes after taking this medicine. ?? Tell your doctor if you have ever had: ?trouble swallowing; ?problems with your stomach or digestion; ?hypocalcemia; ?a dental problem (you may need a dental exam before you begin taking alendronate); ?kidney disease; or ?any condition that makes it hard for your body to absorb nutrients from food (malabsorption). ?? The effervescent tablet contains a lot of sodium. ??Tell your doctor if you are on a low-salt diet before using this form of alendronate. ?? This medicine may cause jaw bone problems (osteonecrosis).?The risk is highest in people with cancer, blood cell disorders, pre-existing dental problems, or people treated with steroids, chemotherapy, or radiation. ??Ask your doctor about your own risk.? It is not known whether this medicine will harm an unborn baby. Tell your doctor if you are or trying to become . ??Stop using the medicine and tell your doctor right away if you become . ?? It may not be safe to breastfeed while using this medicine. Ask your doctor about any risk. ?? How should I take alendronate? Follow all directions on your prescription label and read all medication guides or instruction sheets. ??Use the medicine exactly as directed. ?? Alendronate is taken either once daily or once per week. ??Follow your doctor's dosing instructionsvery carefully. ?? Take alendronate first thing in the morning,??at least 30 minutes before you eat or drink anything or take any other medicine.??If you take alendronate only once per week, take it on the same day each week and always first thing in the morning. ?? Take with a full glass (6 to 8 ounces) of plain water. ??Do not use coffee, tea, soda, juice, or mineral water. ??Do not eat or drink anything other than plain water. ?? Measure??liquid medicine??carefully. Use the dosing syringe provided, or use a medicine dose-measuring device (not a kitchen spoon). ?? Do not crush, chew, or suck on an alendronate??regular tablet.??Swallow it whole. ?? Dissolve the??effervescent tablet??in at least 4 ounces of water (at room temperature, not hot or cold). ??Let the tablet dissolve for 5 minutes. ??Stir this mixture for 10 seconds and drink all of it right away. ??Add a little more water to the glass, swirl gently and drink right away.? For at least 30 minutes after taking alendronate: ?Do not lie down or recline. ?Do not take any other medicine??including vitamins, calcium, or antacids. ? Pay special attention to your dental hygiene while taking alendronate. ??[place] and floss your teethregularly. ??If you need to have any dental work (especially surgery),??tell the dentist ahead of time that you are using alendronate. ? Alendronate is only part of a complete program of treatment that may also include diet changes, exercise, bone mineral density testing, and taking calcium and vitamin supplements. ??Follow your doctor's instructions very closely. ?? Store at room temperature away from moisture and heat. ??Keep unused effervescent tablets in the foil blister pack. ?? Your doctor will determine how long to treat you with this medicine. ??Alendronate is often given for only 3 to 5 years. ? What happens if I miss a dose? Once-daily dosing:??If you forget to take alendronate first thing in the morning, do not take it later in the day. ??Wait until the following morning and skip the missed dose. ??Do not??take two (2) doses in one day. ?? Yjbe-uvi-xoht dosing:??If you forget to take alendronate on your scheduled day, take it first thingin the morning on the day after you remember the missed dose. ??Then return to your regular weekly schedule on your chosen dose day.??Do not??take 2 doses in one day. ?? What happens if I overdose? Drink a full glass of milk and seek emergency medical attention or call the Poison Help line at . ??Do not make yourself vomit and do not lie down. ?? What should I avoid while taking alendronate? Avoid taking any other medicines for at least 30 minutes after taking alendronate. ??This includes vitamins, calcium, and antacids.?Some medicines can make it harder for your body to absorb alendronate. ?? Avoid smoking, or try to quit. ??Smoking can reduce your bone mineral density, making fractures more likely. ?? Avoid drinking large amounts of alcohol. ??Heavy drinking can also cause bone loss. ?? What are the possible side effects of alendronate? Get emergency medical help if you have??signs of an allergic reaction:?hives; wheezing, difficulty breathing; swelling of your face, lips, tongue, or throat. ?? Stop using alendronate and call your doctor at once if you have: ?chest pain, new or worsening heartburn; ?difficulty or pain when swallowing; ?pain or burning under the ribs or in the back; ?severe heartburn, burning pain in your upper stomach, or coughing up blood; ?new or unusual pain in your thigh or hip; ?jaw pain, numbness, or swelling; ?severe joint, bone, or muscle pain; or ?low calcium levels--muscle spasms or contractions, numbness or tingly feeling (around your mouth, or in your fingers and toes). ?? Common side effects may include: ?heartburn, upset stomach; ?stomach pain, nausea; ?diarrhea, constipation; or ?bone pain, muscle or joint pain. ?? This is not a complete list of side effects and others may occur. Call your doctor for medical advice about side effects. You may report side effects to FDA at 2-411-NWF-3930. ?? What other drugs will affect alendronate? Tell your doctor about all your other medicines, especially: ?aspirin; or ?NSAIDs (nonsteroidal anti-inflammatory drugs)--ibuprofen (Advil, Motrin), naproxen (Aleve), celecoxib, diclofenac, indomethacin, meloxicam, and others. ?? This list is not complete. ??Other drugs may affect alendronate, including prescription and neps-zlf-nuqcldf medicines, vitamins, and herbal products. ??Not all possible drug interactions are listed here. ?? Where can I get more information? Your pharmacist can provide more information about alendronate. ?? Remember, keep this and all other medicines out of the reach of children, never share your medicines with others, and use this medication only for the indication prescribed. ?? Every effort has been made to ensure that the information provided by [employer]. ('[employer]') is accurate, up-to-date, and complete, but no guarantee is made to that effect. Drug information contained herein may be time sensitive. [employer] information has been compiled for use by healthcare practitioners and consumers in the [place] and therefore [employer] does not warrant that uses outside of the [place] are appropriate, unless specifically indicated otherwise. [employer] drug information does not endorse drugs, diagnose patients or recommend therapy. [employer] drug information isan informational resource designed to assist licensed healthcare practitioners in caring for their p atients and/or to serve consumers viewing this service as a supplement to, and not a substitute for, the expertise, skill, knowledge and judgment of healthcare practitioners. The absence of a warningfor a given drug or drug combination in no way should be construed to indicate that the drug or drug combination is safe, effective or appropriate for any given patient. [employer] does not assume any responsibility for any aspect of healthcare administered with the aid of information [employer] provides. The information contained herein is not intended to cover all possible uses, directions, precautions, warnings, drug interactions, allergic reactions, or adverse effects. If you have questions about the drugs you are taking, check with your doctor, nurse or pharmacist.? Copyright [id number] [employer]. Version: 17.. Revision Date: 06/11/2023. ?? gabapentin?? (GA ba PEN tin) ?? Gralise, Horizant, Neurontin? What is the most important information I should know about gabapentin? Gabapentin can cause life-threatening breathing problems, especially if you already have a breathing disorder or if you use other medicines that can make you drowsy or slow your breathing. Seek emergency medical attention if you have very slow breathing. ?? Some people have thoughts about suicide while taking seizure medicine. Stay alert to changes in your mood or symptoms.??Tell your doctor right away if you have any sudden changes in mood or behavior,or thoughts about suicide. ?? Seizures may increase if you stop using gabapentin suddenly.??Ask your doctor before stopping the medicine. ?? What is gabapentin? Gabapentin is used in adults and children at least 3 years old together with other medicines to treat partial seizures. ?? Gabapentin is also used in adults to treat nerve pain caused by shingles (herpes zoster). ?? Gralise??is used only in adults to treat nerve pain.? Horizant??is used only in adults to treat nerve pain and restless legs syndrome (RLS). ?? Gabapentin may also be used for purposes not listed in this medication guide. ?? What should I discuss with my healthcare provider before taking gabapentin? You should not take gabapentin if you are allergic to it. ?? Tell your doctor if you have or have ever had: ?breathing problems; ?diabetes; ?depression, a mood disorder, or suicidal thoughts or actions; ?drink alcohol; ?a history of drug addiction; ?a seizure; ?(patients with RLS) if you are a day sleeper or work a retail shift leader; or ?kidney disease (or if you are on dialysis). ?? Some people have thoughts about suicide while taking seizure medicine. Children taking gabapentin may have behavior changes. Stay alert to changes in your mood or symptoms. Your family or caregivers should also watch for sudden changes in your behavior. ?? It is not known if gabapentin will harm an unborn baby. Tell your doctor if you are or plan to become . ?? Do not start or stop seizure medication during without your doctor's advice.??Having a seizure during could harm both mother and baby.??Tell your doctor if you become . ?? If you are , your name may be listed on a registry to track the effects of gabapentin on the baby. ?? Ask a doctor if it is safe to breastfeed while using this medicine. ?? How should I take gabapentin? Follow all directions on your prescription label and read all medication guides or instruction sheets. Your doctor may occasionally change your dose. Take the medicine exactly as directed.? Never take gabapentin in larger amounts, or for longer than prescribed. ?? Your dose needs may change if you switch to a different brand, strength, or form of this medicine.??Avoid medication errors by using only the medicine your doctor prescribes. ?? You may take gabapentin with or without food. Take??Gralise??and??Horizant??with food. ?? If you break a Gabapentin tablet and take only half of it, take the other half at your next dose. Any tablet that has been broken should be used as soon as possible or within a few days. ?? Swallow the tablets of??Gralise??and??Horizant??whole. Do not crush, break, or dissolve it. Swallowthe capsule whole and do not crush, chew, break, or open it. ?? Measure??liquid medicine??with the supplied measuring device (not a kitchen spoon). ?? Doses are based on weight in children. Your child's dose may change if the child gains or loses weight. ?? You should not stop taking gabapentin suddenly.?Stopping suddenly may cause increased seizures. Follow your doctor's instructions about tapering your dose. ?? This medicine can affect the results of certain medical tests. Tell any doctor who treats you that you are using gabapentin. ?? Your kidney function may need to be checked often and your dose may change based on the results. ?? Store gabapentin??tablets??and??capsules??at room temperature away from moisture and heat. ?? Store the??liquid medicine??in the refrigerator, do not freeze.? Follow all storage instructions provided with gabapentin. Your pharmacist can provide more information about how to store this medicine. ?? What happens if I miss a dose? Take the medicine as soon as you can, but skip the missed dose if it is almost time for your next dose.??Do not??take two doses at one time.? If you take Horizant:?skip the missed dose and take your next dose at the regular time.??Do not??use two doses at one time. ?? What happens if I overdose? Seek emergency medical attention or call the Poison Help line at .??An overdose can be fatal. ?? Overdose symptoms may include slow breathing, double vision, tremor, slurred speech, drowsiness, change in your mental state, dizziness, tiredness, or diarrhea. ?? What should I avoid while taking gabapentin? Avoid driving or hazardous activity until you know how this medicine will affect you. Dizziness or drowsiness can cause falls, accidents, or severe injuries. ?? Avoid taking an antacid within 2 hours before you take gabapentin.? Do not drink alcohol.??Dangerous side effects could occur. ?? What are the possible side effects of gabapentin? Get emergency medical help if you have??signs of an allergic reaction:??hives, difficult breathing,swelling of your face, lips, tongue, or throat. ?? Seek medical treatment if you have a serious drug reaction that can affect many parts of your body.??Symptoms may include skin rash, fever, swollen glands, muscle aches, severe weakness, unusual bruising, or yellowing of your skin or eyes. ?? Tell your doctor right away if you have new or sudden changes in mood or behavior, including??new or worse depression or anxiety, panic attacks, trouble sleeping, or if you feel impulsive, irritable,agitated, hostile, aggressive, restless, more active or talkative, or have thoughts about suicide or hurting yourself. ?? Gabapentin can slow or stop your breathing, especially if you have recently used an opioid medication or alcohol.??A person caring for you should seek emergency medical attention if you have slow breathing with long pauses, blue colored lips, or if you are hard to wake up. ?? Some side effects are more likely in children taking gabapentin.??Call your doctor if the child hasany of the following side effects: behavior changes, memory problems, trouble concentrating, or acting restless, hostile, or aggressive. ?? Call your doctor at once if you have: ?drowsiness, dizziness, weakness; ?problems with balance or muscle movement; or ?increased seizures. ?? Common side effects may include: ?fever, chills, sore throat, body aches, tiredness; ?headache; ?swelling of your legs and feet; ?trouble speaking; ?vision problems, dizziness, drowsiness;?tremors, problems with balance or muscle movement; or ?nausea, vomiting. ?? This is not a complete list of side effects and others may occur. Call your doctor for medical advice about side effects. You may report side effects to FDA at 8-173-AZZ-9856. ?? What other drugs will affect gabapentin? Taking gabapentin with other drugs that make you drowsy or slow your breathing can cause dangerous side effects or .??Ask your doctor before taking opioid medication, a sleeping pill, a muscle relaxer, or medicine for anxiety or seizures. ?? Tell your doctor about all your current medicines.??Many drugs can affect gabapentin, especially: ?naproxen; ?opioid medicine--hydrocodone, oxycodone, morphine, buprenorphine; ?zolpidem; ?lorazepam; or ?cimetidine. ?? This list is not complete and many other drugs may affect gabapentin.??This includes prescription and phae-ebo-wkszpol medicines, vitamins, and herbal products. Not all possible drug interactions arelisted here. ?? Where can I get more information? Your doctor or pharmacist can provide more information about gabapentin. ?? Remember, keep this and all other medicines out of the reach of children, never share your medicines with others, and use this medication only for the indication prescribed. ?? Every effort has been made to ensure that the information provided by [employer]. ('[employer]') is accurate, up-to-date, and complete, but no guarantee is made to that effect. Drug information contained herein may be time sensitive. [employer] information has been compiled for use by healthcare practitioners and consumers in the [place] and therefore [employer] does not warrant that uses outside of the [place] are appropriate, unless specifically indicated otherwise. [employer] drug information does not endorse drugs, diagnose patients or recommend therapy. [employer] drug information isan informational resource designed to assist licensed healthcare practitioners in caring for their p atients and/or to serve consumers viewing this service as a supplement to, and not a substitute for, the expertise, skill, knowledge and judgment of healthcare practitioners. The absence of a warningfor a given drug or drug combination in no way should be construed to indicate that the drug or drug combination is safe, effective or appropriate for any given patient. [facility] does not assume any responsibility for any aspect of healthcare administered with the aid of information [facility] provides. The information contained herein is not intended to cover all possible uses, directions, precautions, warnings, drug interactions, allergic reactions, or adverse effects. If you have questions about the drugs you are taking, check with your doctor, nurse or pharmacist.? Copyright 7262-6243 [employer]. Version: 18.. Revision Date: 05/11/2023. ?? furosemide (oral/injection)?? (fur [place] se mide) ?? Furoscix, Lasix? What is the most important information I should know about furosemide? You should not use this medicine if you are unable to urinate. ?? Using more than your recommended dose will not make this medicine more effective.??High doses of furosemide may cause irreversible hearing loss.? Tell your doctor about all your other medicines.??Some drugs should not be used with furosemide. ?? What is furosemide? Furosemide is used to treat fluid retention (edema) in people with congestive heart failure, liver disease, or a kidney disorder such as nephrotic syndrome. ? Furosemide is also used to treat high blood pressure (hypertension). ?? The??Furiosi??brand of furosemide is only used in adults. ?? Furosemide may also be used for purposes not listed in this medication guide. ?? What should I discuss with my healthcare provider before using furosemide? You should not use furosemide if you are allergic to it, if you are unable to urinate or have hepatic cirrhosis. ?? You should not use??Furiosi??if you have ascites or have allergies to medical adhesives.? Tell your doctor if you have ever had: ?an electrolyte imbalance (such as low levels of potassium or magnesium in your blood); ?enlarged prostate, bladder obstruction, or other urination problems; ?gout; ?lupus; ?diabetes;?an allergy to sulfa drugs; ?kidney disease; or ?cirrhosis or other liver disease. ?? Tell your doctor if you have an MRI (magnetic resonance imaging) or any type of scan using a radioactive dye that is injected into a vein. ??Contrast dyes and furosemide can harm your kidneys. ?? It is not known if furosemide will harm an unborn baby. Tell your doctor if you are or plan to become . ?? It may not be safe to breastfeed while using this medicine. Ask your doctor about any risk. Furosemide may slow breast milk production. ?? How should I use furosemide? Follow all directions on your prescription label and read all medication guides or instruction sheets. Use the medicine exactly as directed. ?? Furosemide??oral??is taken by mouth. Furosemide??injection??is given in a muscle, under the skin, or in a vein. A healthcare provider will give you this injection if you are unable to take the medicine by mouth. ?? Furiosi??infusion lasts about 5 hours.??Furiosi??should not get wet. Do not bathe, shower, swim or exercise while wearing the infusor. Also do not apply any products such as lotions or creams in the area where the infusor is placed. ?? It is not recommended to travel by car or airplane while using??Furiosi.??Also do not use the infusor within 12 inches of mobile phones, tablets, computers, or wireless accessories such as remote control, or [employer] devices.? Do not reuse a needle, syringe or cartridge. Place them in a puncture-proof 'sharps' container and dispose of it following state or local laws. Keep out of the reach of children and pets. ?? You may receive your first dose in a hospital or clinic setting if you have severe liver disease. ?? Do not use more than your recommended dose. ??High doses of furosemide may cause irreversible hearing loss.? Measure??liquid medicine??with the supplied measuring device (not a kitchen spoon). ?? Doses are based on weight in children and teenagers. Your child's dose may change if the child gains or loses weight. ?? Furosemide will make you urinate more often and you may get dehydrated easily. ??Follow your doctor's instructions about using potassium supplements or getting enough salt and potassium in your diet. ?? Your blood pressure will need to be checked often and you may need other medical tests. ?? If you have high blood pressure,??keep using this medicine even if you feel well.?High blood pressure often has no symptoms.? If you need surgery, tell the surgeon ahead of time that you are using furosemide. ? Store at room temperature away from moisture, heat, and light. ??Throw away any unused??oral liquid??after 90 days. ?? What happens if I miss a dose? Furosemide is sometimes used only once, so you may not be on a dosing schedule. If you are using the medication regularly, use the medicine as soon as you can, but skip the missed dose if it is almost time for your next dose.??Do not??use two doses at one time.? What happens if I overdose? Seek emergency medical attention or call the Poison Help line at . ?? Overdose symptoms may include feeling very thirsty or hot, heavy sweating, hot and dry skin, extreme weakness, or fainting. ?? What should I avoid while using furosemide? Avoid getting up too fast from a sitting or lying position, or you may feel dizzy. ?? Avoid becoming dehydrated. ??Follow your doctor's instructions about the type and amount of liquidsyou should drink while you are using furosemide. ?? Drinking alcohol with this medicine can cause side effects. ?? Furosemide could make you sunburn more easily. Avoid sunlight or tanning beds. Wear protective clothing and use sunscreen (SPF 30 or higher) when you are outdoors. ?? If you have high blood pressure, ask a doctor or pharmacist before taking any medicines that can raise your blood pressure, such as diet pills or tszoq-qsn-qrtk medicine. ?? What are the possible side effects of furosemide? Get emergency medical help if you have??signs of an allergic reaction??(hives, difficult breathing,swelling in your face or throat)??or a severe skin reaction??(fever, sore throat, burning eyes, skin pain, red or purple skin rash with blistering and peeling). ?? Call your doctor at once if you have: ?a light-headed feeling, like you might pass out; ?ringing in your ears, hearing loss; ?muscle spasms or contractions; ?pale skin, easy bruising, unusual bleeding; ?high blood sugar--increased thirst, increased urination, dry mouth, fruity breath odor; ?kidney problems--swelling, urinating less, feeling tired or short of breath ?signs of liver or pancreas problems--loss of appetite, upper stomach pain (that may spread to your back), nausea or vomiting, dark urine, jaundice (yellowing of the skin or eyes); or ?signs of an electrolyte imbalance--increased thirst or urination, constipation, muscle weakness, leg cramps, numbness or tingling, feeling jittery, fluttering in your chest. ?? Common side effects may include: ?diarrhea, constipation, loss of appetite; ?numbness or tingling; ?headache, dizziness; or ?blurred vision. ?? This is not a complete list of side effects and others may occur. Call your doctor for medical advice about side effects. You may report side effects to FDA at 6-730-PZC-4082.? What other drugs will affect furosemide? Sometimes it is not safe to use certain medicines at the same time.??Some drugs can affect your blood levels of other drugs you use, which may increase side effects or make the medicines less effective ?? If you also take sucralfate, take your furosemide dose 2 hours before or 2 hours after you take sucralfate. ?? Tell your doctor about all your other medicines, especially: ?another diuretic, especially ethacrynic acid; ?methotrexate; ?chloral hydrate; ?lithium; ?phenytoin; ?an antibiotic;?cancer medicine, such as cisplatin;?heart or blood pressure medicine; or ?NSAIDs (nonsteroidal anti-inflammatory drugs)--aspirin, ibuprofen (Advil, Motrin), naproxen (Aleve), celecoxib, diclofenac, indomethacin, meloxicam, and others. ?? This list is not complete. ??Other drugs may affect furosemide, including prescription and whtw-hnh-riswwvm medicines, vitamins, and herbal products. ??Not all possible drug interactions are listed here. ?? Where can I get more information? Your doctor or pharmacist can provide more information about furosemide. ?? Remember, keep this and all other medicines out of the reach of children, never share your medicines with others, and use this medication only for the indication prescribed. ?? Every effort has been made to ensure that the information provided by [employer]. [employer]') is accurate, up-to-date, and complete, but no guarantee is made to that effect. Drug information contained herein may be time sensitive. [employer] information has been compiled for use by healthcare practitioners and consumers in the [place] and therefore [employer] does not warrant that uses outside of the [place] are appropriate, unless specifically indicated otherwise. [employer] drug information does not endorse drugs, diagnose patients or recommend therapy. [employer] drug information isan informational resource designed to assist licensed healthcare practitioners in caring for their p atients and/or to serve consumers viewing this service as a supplement to, and not a substitute for, the expertise, skill, knowledge and judgment of healthcare practitioners. The absence of a warningfor a given drug or drug combination in no way should be construed to indicate that the drug or drug combination is safe, effective or appropriate for any given patient. [employer] does not assume any responsibility for any aspect of healthcare administered with the aid of information [employer] provides. The information contained herein is not intended to cover all possible uses, directions, precautions, warnings, drug interactions, allergic reactions, or adverse effects. If you have questions about the drugs you are taking, check with your doctor, nurse or pharmacist.? Copyright 7895-6897 [employer]. Version: 18.. Revision Date: 01/16/2023. ? Patient/Animal Care Worker Signature Patient Name:YVETTE DRAPER I have received this information and my questions have been answered. Patient/Animal Care Worker Name: Patient/Animal Care Worker Signature: Relationship to Patient: Witness Name/Signature: Date: Electronically Signed on: 10/22/2023 12:47 ESTSigned by:Vaibhav Holder: PERFORM Event Display: Discharge Instructions Authored Date: [id number] YVETTE DRAPER :1945 Age:78 years Sex:Female Visit Date:10/21/2023 Primary Care Physician: Mally Vazquez APRN Hospital Discharge Instructions We would like to thank you for allowing us to assist you with your healthcare needs. The following includes patient education materials and information regarding your injury/illness. Your Next Steps Scheduled Future Appointments Thursday 2:00 PM EST ?? With: Willis Salgado MD Where: [facility] Primary Care [address] [address]- Status: Confirmed 2022 11:00 AM EST ?? With: Kerry Joseph Where: [facility] Nutrition Status: Confirmed 2023 12:30 PM EST ?? With: Mally Vazquez APRN Where: [facility] Primary Care [address] [address]- Status: Confirmed Follow Up Appointments Follow Up with??Mally Vazquez APRN When:??Within 1 month Why: Provider office will reach out with appointment. Where: [address] [place] [address] [phone] Medications What How Much When Why Instructions Next Dose Changed famotidine (famotidine 20 mg oral tablet) 1 tab Oral (given by mouth) Every day Unchanged albuterol (Albuterol (Eqv-Proventil HFA) 90 mcg/ inh inhalation aerosol) 1 Puffs Inhale (breathe in) Every 4 hours as needed for as needed for wheezing Do not exceed 12 inhalations in a 24-hour period. ?? Unchanged alendronate (alendronate 70 mg oral tablet) 1 tab Oral (given by mouth) Every week Duration: 84 Days with 6-8 oz plain water, at least 30 minutes before first food, beverage, or medication of the day. Remain upright for at least 30 minutes after taking. ?? Unchanged atorvastatin (atorvastatin 10 mg oral tablet) 1 tab Oral (given by mouth) Every evening Duration: 90 Days Unchanged bifidobacterium-lactobacillus ([employer] oral capsule) 8 EA, TAKE 1 CAPSULE BY MOUTH TWICE DAILY ?? Unchanged calcium-vitamin D (Calcium 600+D 600 mg-200 intl units oral tablet) 1 tab Oral (given by mouth) Every day 28 tab ?? Unchanged citalopram (citalopram 20 mg oral tablet) 1 tab Oral (given by mouth) Every day Unchanged Durable Medical Equipment for Prescription (Diabetic footwear) See instructions Diabetes mellitus type 2 Please fit for diabetic shoes. ?? Unchanged empagliflozin (Jardiance 10 mg oral tablet) 1 tab Oral (given by mouth) Every morning Unchanged folic acid (folic acid 1 mg oral tablet) 1 tab Oral (given by mouth) Every day Unchanged furosemide (furosemide 40 mg oral tablet) 1 tab Oral (given by mouth) Every morning Unchanged gabapentin (gabapentin 100 mg oral capsule) 1 Capsules Oral (given by mouth) Every day Duration: 90 Days Unchanged lansoprazole (lansoprazole 30 mg oral delayed release capsule) 1 Capsules Oral (given by mouth) Every day Unchanged letrozole (letrozole 2.5 mg oral tablet) 1 tab Oral (given by mouth) Every day Unchanged levothyroxine (levothyroxine 137 mcg (0.137 mg) oral tablet) See instructions TAKE 1 TABLET DAILY IN THE MORNING ON AN EMPTY STOMACH ?? Unchanged losartan (losartan 100 mg oral tablet) 1 tab Oral (given by mouth) Every day Unchanged metoprolol (metoprolol tartrate 25 mg oral tablet) 1 tab Oral (given by mouth) 2 times a day Duration: 90 Days Unchanged multivitamin (multivitamin adult, oral tablet) 1 tab Oral (given by mouth) Every day Unchanged ubiquinone (Coenzyme Q10 100 mg oral capsule) 1 Capsules Oral (given by mouth) Every day Your Summary Your Care Team Admitting Physician - Jonathon Cox APRN Attending Physician - Jonathon Cox APRN Primary Care Physician - Mally Vazquez APRN Your Diagnosis Generalized weakness NOVA (acute kidney injury) DM2 (diabetes mellitus, type 2) KWAKU on CPAP Problems Ongoing - Any problem that you are currently receiving treatment for. Acquired hypothyroidism Altered bowel habits Amaurosis fugax Anemia of chronic disorder Anemia, hemolytic Aortic valve stenosis, mild Arthritis of right acromioclavicular joint Asthma Asthma Autoimmune hemolytic anemia, unspecified Cardiomyopathy, dilated Carotid artery aneurysm Cholecystitis, chronic Colon arteriovenous malformation Coronary artery disease Cystocele, midline Depression with anxiety Diabetes mellitus type 2 Diabetic polyneuropathy associated with type 2 diabetes mellitus Ductal carcinoma in situ (DCIS) of left breast 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 History of Hodgkin's disease History of ITP History of varicose veins of lower extremity Hyperlipidemia Hypertension Hypertriglyceridemia Hypothyroidism Idiopathic thrombocytopenia Isolation, social Lymphedema Mild stress incontinence Mitral regurgitation Mitral valve disorder Muscle cramps Neuropathy NHL - Non-Hodgkin's lymphoma Nocturnal hypoxemia Normocytic anemia Obstructive sleep apnea Osteoarthritis Peripheral vascular disease, unspecified Pharyngoesophageal dysphagia Presbylarynges Reactive depression Sleep apnea Thrombocytopenia 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 GERD - Gastro-esophageal reflux disease Tests Performed/Pending Automated Diff Blood Gas Venous BMP CBC w/ Diff CMP D-Dimer Glucose POCT Lactic Acid Magnesium Level Troponin-I High Sensitivity Urinalysis Microscopic Urinalysis with Micro if Indicated and Culture if Indicated XR Chest 1 View Discharge Vitals Temperature??(Oral) 98.2 ??F (36.8 ??C) Heart Rate??(Peripheral) 83 Respiratory Rate?? 18 Blood Pressure?? 149/69?? Height?? 64.57 in (164 cm) Weight?? 218.30 lb (99 kg) BMI?? 36.81 Allergies Flomax??(Dizziness) narcotic analgesics sulfa drugs??(Rash, Hallucinations) Education Materials Diabetes Mellitus and Nutrition, Adult When you have diabetes, or diabetes mellitus, it is very important to have healthy eating habits because your blood sugar (glucose) levels are greatly affected by what you eat and drink. Eating healthy foods in the right amounts, at about the same times every day, can help you: ? Manage your blood glucose. ? Lower your risk of heart disease. ? Improve your blood pressure. ? Reach or maintain a healthy weight. What can affect my meal plan? Every person with diabetes is different, and each person has different needs for a meal plan. Your health care provider may recommend that you work with a dietitian to make a meal plan that is best for you. Your meal plan may vary depending on factors such as: ? The calories you need. ? The medicines you take. ? Your weight. ? Your blood glucose, blood pressure, and cholesterol levels. ? Your activity level. ? Other health conditions you have, such as heart or kidney disease. How do carbohydrates affect me? Carbohydrates, also called carbs, affect your blood glucose level more than any other type of food.Eating carbs raises the amount of glucose in your blood. It is important to know how many carbs you can safely have in each meal. This is different for every person. Your dietitian can help you calculate how many carbs you should have at each meal and for each snack. How does alcohol affect me? Alcohol can cause a decrease in blood glucose (hypoglycemia), especially if you use insulin or takecertain diabetes medicines by mouth. Hypoglycemia can be a life-threatening condition. Symptoms of hypoglycemia, such as sleepiness, dizziness, and confusion, are similar to symptoms of having too much alcohol. ? Do not drink alcohol if: ? Your health care provider tells you not to drink. ? You are , may be , or are planning to become . ? If you drink alcohol: ? Limit how much you have to: ? 0???1 drink a day for women. ? 0???2 drinks a day for men. ? Know how much alcohol is in your drink. In the [place] one drink equals one 12 oz bottle of beer (355mL), one 5 oz glass of wine (148 mL), or one 1?? oz glass of hard liquor (44 mL). ? Keep yourself hydrated with water, diet soda, or unsweetened iced tea. Keep in mind that regular soda, juice, and other mixers may contain a lot of sugar and must be counted as carbs. What are tips for following this plan? Reading food labels ? Start by checking the serving size on the Nutrition Facts label of packaged foods and drinks. The number of calories and the amount of carbs, fats, and other nutrients listed on the label are based on one serving of the item. Many items contain more than one serving per package. ? Check the total grams (g) of carbs in one serving. ? Check the number of grams of saturated fats and trans fats in one serving. Choose foods that have alow amount or none of these fats. ? Check the number of milligrams (mg) of salt (sodium) in one serving. Most people should limit totalsodium intake to less than 2,300 mg per day. ? Always check the nutrition information of foods labeled as low-fat or nonfat. These foods may be higher in added sugar or refined carbs and should be avoided. ? Talk to your dietitian to identify your daily goals for nutrients listed on the label. Shopping ? Avoid buying canned, pre-made, or processed foods. These foods tend to be high in fat, sodium, and added sugar. ? Shop around the outside edge of the grocery store. This is where you will most often find fresh fruits and vegetables, bulk grains, fresh meats, and fresh dairy products. Cooking ? Use low-heat cooking methods, such as baking, instead of high-heat cooking methods, such as deep frying. ? Cook using healthy oils, such as olive, canola, or sunflower oil. ? Avoid cooking with butter, cream, or high-fat meats. Meal planning ? Eat meals and snacks regularly, preferably at the same times every day. Avoid going long periods oftime without eating. ? Eat foods that are high in fiber, such as fresh fruits, vegetables, beans, and whole grains. ? Eat 4???6 oz (112???168 g) of lean protein each day, such as lean meat, chicken, fish, eggs, or tofu. One ounce (oz) (28 g) of lean protein is equal to: ? 1 oz (28 g) of meat, chicken, or fish. ? 1 egg. ? cup (62 g) of tofu. ? Eat some foods each day that contain healthy fats, such as avocado, nuts, seeds, and fish. What foods should I eat? Fruits Berries. Apples. Oranges. Peaches. Apricots. Plums. Grapes. Mangoes. Papayas. Pomegranates. Kiwi. Cherries. Vegetables Leafy greens, including lettuce, spinach, kale, chard, armen greens, mustard greens, and cabbage.Beets. Cauliflower. Broccoli. Carrots. Green beans. Tomatoes. Peppers. Onions. Cucumbers. [place] sprouts. Grains Whole grains, such as whole-wheat or whole-grain bread, crackers, tortillas, cereal, and pasta. Unsweetened oatmeal. Quinoa. Brown or wild rice. Meats and other proteins Seafood. Poultry without skin. Lean cuts of poultry and beef. Tofu. Nuts. Seeds. Dairy Low-fat or fat-free dairy products such as milk, yogurt, and cheese. The items listed above may not be a complete list of foods and beverages you can eat and drink. Contact a dietitian for more information. What foods should I avoid? Fruits Fruits canned with syrup. Vegetables Canned vegetables. Frozen vegetables with butter or cream sauce. Grains Refined white flour and flour products such as bread, pasta, snack foods, and cereals. Avoid all processed foods. Meats and other proteins Fatty cuts of meat. Poultry with skin. Breaded or fried meats. Processed meat. Avoid saturated fats. Dairy Full-fat yogurt, cheese, or milk. Beverages Sweetened drinks, such as soda or iced tea. The items listed above may not be a complete list of foods and beverages you should avoid. Contact a dietitian for more information. Questions to ask a health care provider ? Do I need to meet with a certified diabetes care and associate professor of education? Do I need to meet with a dietitian? What number can I call if I have questions? When are the best times to check my blood glucose? Where to find more information: ? [place] Diabetes [employer]: diabetes.org ? Academy of Nutrition and Dietetics: eatright.org ? National [place] of Diabetes and Digestive and Kidney Diseases: niddk.nih.gov ? Association of Diabetes Care & Education Specialists: diabeteseducator.org Summary ? It is important to have healthy eating habits because your blood sugar (glucose) levels are greatlyaffected by what you eat and drink. It is important to use alcohol carefully. ? A healthy meal plan will help you manage your blood glucose and lower your risk of heart disease. ? Your health care provider may recommend that you work with a dietitian to make a meal plan that is best for you. This information is not intended to replace advice given to you by your health care provider. Make sure you discuss any questions you have with your health care provider. Document Revised: 05/29/2021 Document Reviewed: 05/29/2021 [employer] Patient Education ?? 2022 [employer]. Medication Information albuterol inhalation?? (al BYOO ter all) ?? ProAir HFA, ProAir RespiClick, Proventil HFA, Ventolin HFA? What is the most important information I should know about albuterol ??inhalation? Follow all directions on your medicine label and package. Tell each of your healthcare providers about all your medical conditions, allergies, and all medicines you use. ?? What is albuterol inhalation? Albuterol inhalation is a bronchodilator that is used to treat or prevent bronchospasm in people with reversible obstructive airway disease. ??Albuterol is also used to prevent exercise-induced bronchospasm. ?? Albuterol inhalation is for use in adults and children at least 4 years old.? Albuterol inhalation may also be used for purposes not listed in this medication guide. ?? What should I discuss with my healthcare provider before using albuterol inhalation? You should not use this medicine if you are allergic to albuterol. ? You should not use??ProAir RespiClick??if you are allergic to milk proteins. ?? Tell your doctor if you have ever had: ?heart disease, high blood pressure; ?a thyroid disorder; ?seizures; ?diabetes; or?low levels of potassium in your blood. ?? Tell your doctor if you are or plan to become . ??It is not known whether albuterol will harm an unborn baby. ??However, having uncontrolled asthma during may increase the risk of premature , low weight, or eclampsia (dangerously high blood pressure that can lead to medical problems in both mother and baby). ??The benefit of preventing bronchospasm may outweigh any risks to the baby. ?? If you are , your name may be listed on a registry to track the effects of albuterol on the baby. ?? It may not be safe to breastfeed while using this medicine. Ask your doctor about any risk. ?? How should I use albuterol inhalation? Follow all directions on your prescription label and read all medication guides. ??Use the medicineexactly as directed. ?? Do not allow a young child to use albuterol inhalation without help from an adult. ?? To prevent exercise-induced bronchospasm, use this medicine 15 to 30 minutes before you exercise. ??The effects of albuterol inhalation should last about 4 to 6 hours. ? Seek medical attention if your breathing problems get worse quickly, or if you think your asthma medications are not working as well. ?? Read and carefully follow any Instructions for Use provided with your medicine.?Ask your doctor or pharmacist if you do not understand these instructions. ?? ProAir HFA, Proventil HFA, or??Ventolin HFA??must be shaken before each use. You do not need to shake??ProAir RespiClick??before using. ?? Do not try to clean or take apart the ProAir RespiClick inhaler device.? Always use the new inhaler device provided with your refill. ??Do not float a medicine canister in water to see if it is empty.? Your dose needs may change due to surgery, illness, stress, or a recent asthma attack. ??Do not change your dose or dosing schedule without your doctor's advice. ? Store at room temperature away from moisture, heat, or cold temperatures. ? Keep the cover on your??ProAir RespiClick??inhaler when not in use. ??Store??Proventil??or??Ventolin??with the mouthpiece down. ? Keep the inhaler canister away from open flame or high heat. ??The canister may explode if it gets too hot. ??Do not puncture or burn an empty inhaler canister. ?? What happens if I miss a dose? Use the medicine as soon as you can, but skip the missed dose if it is almost time for your next dose. ??Do not??use two doses at one time. ?? Get your prescription refilled before you run out of medicine completely. ?? What happens if I overdose? Seek emergency medical attention or call the Poison Help line at . ??An overdose of albuterol can be fatal. ?? Overdose symptoms may include dry mouth, tremors, chest pain, fast heartbeats, nausea, general ill feeling, seizure, feeling light-headed or fainting. ?? What should I avoid while using albuterol inhalation? Rinse with water if this medicine gets in your eyes. ?? What are the possible side effects of albuterol inhalation? Get emergency medical help if you have??signs of an allergic reaction: ??hives; difficult breathing; swelling of your face, lips, tongue, or throat. ?? Call your doctor at once if you have: ?wheezing, choking, or other breathing problems after using this medicine; ?chest pain, fast heart rate, pounding heartbeats or fluttering in your chest; ?severe headache, pounding in your neck or ears; ?pain or burning when you urinate; ?high blood sugar--increased thirst, increased urination, dry mouth, fruity breath odor; or ?low potassium--leg cramps, constipation, irregular heartbeats, increased thirst or urination, numbness or tingling, muscle weakness or limp feeling. ?? Common side effects may include: ?chest pain, fast or pounding heartbeats; ?upset stomach, vomiting; ?painful urination; ?dizziness; ?feeling shaky or nervous; ?headache, back pain, body aches; or ?cough, sore throat, sinus pain, runny or stuffy nose. ?? This is not a complete list of side effects and others may occur. Call your doctor for medical advice about side effects. You may report side effects to FDA at 6-631-AZS-9372. ?? What other drugs will affect albuterol inhalation? Tell your doctor about all your other medicines, especially: ?any other inhaled medicines or bronchodilators; ?digoxin; ?a diuretic or 'water pill'; ?an antidepressant--amitriptyline, desipramine, imipramine, doxepin, nortriptyline, and others; ?a beta jennifer--atenolol, carvedilol, labetalol, metoprolol, propranolol, sotalol, and others; or ?an MAO inhibitor--isocarboxazid, linezolid, methylene blue injection, phenelzine, rasagiline, selegiline, tranylcypromine, and others. ?? This list is not complete. ??Other drugs may affect albuterol inhalation, including prescription and ksfn-krx-wvwcklf medicines, vitamins, and herbal products. ??Not all possible drug interactions are listed here. ?? Where can I get more information? Your pharmacist can provide more information about albuterol inhalation. ?? Remember, keep this and all other medicines out of the reach of children, never share your medicines with others, and use this medication only for the indication prescribed. ?? Every effort has been made to ensure that the information provided by [employer]. [employer]') is accurate, up-to-date, and complete, but no guarantee is made to that effect. Drug information contained herein may be time sensitive. [employer] information has been compiled for use by healthcare practitioners and consumers in the [place] and therefore [employer] does not warrant that uses outside of the [place] are appropriate, unless specifically indicated otherwise. [employer] drug information does not endorse drugs, diagnose patients or recommend therapy. [employer] drug information isan informational resource designed to assist licensed healthcare practitioners in caring for their p atients and/or to serve consumers viewing this service as a supplement to, and not a substitute for, the expertise, skill, knowledge and judgment of healthcare practitioners. The absence of a warningfor a given drug or drug combination in no way should be construed to indicate that the drug or drug combination is safe, effective or appropriate for any given patient. [employer] does not assume any responsibility for any aspect of healthcare administered with the aid of information [employer] provides. The information contained herein is not intended to cover all possible uses, directions, precautions, warnings, drug interactions, allergic reactions, or adverse effects. If you have questions about the drugs you are taking, check with your doctor, nurse or pharmacist.? Copyright 7225-1343 [employer]. Version: 08.09. Revision Date: 09/26/2020. ?? metoprolol (oral/injection)?? (me TOE pro lol) ?? [place]sp[place] Sprinkle, Lopressor, Metoprolol Succinate ER, Metoprolol Tartrate, Toprol-XL? What is the most important information I should know about metoprolol? You should not use this medicine if you have a serious heart problem (heart block, sick sinus syndrome, slow heart rate), severe circulation problems, severe heart failure, or a history of slow heartbeats that caused fainting. ?? What is metoprolol? Metoprolol is a beta-jennifer that affects the heart and circulation (blood flow through arteries and veins). ?? Metoprolol is used to treat angina (chest pain) and hypertension (high blood pressure). ??It is also used to ??lower your risk of or needing to be hospitalized for heart failure. ?? Metoprolol??injection??is used during the early phase of a heart attack to lower the risk of . ?? Metoprolol may also be used for other purposes not listed in this medication guide. ?? What should I discuss with my healthcare provider before taking metoprolol? You should not use this medicine if you are allergic to metoprolol, or other beta-blockers (atenolol, carvedilol, labetalol, nadolol, nebivolol, propranolol, sotalol, and others), or if you have: ?a serious heart problem such as heart block, sick sinus syndrome, or slow heart rate; ?severe circulation problems; ?severe heart failure (that required you to be in the hospital); or ?a history of slow heart beats that have caused you to faint. ?? Tell your doctor if you have ever had: ?asthma, chronic obstructive pulmonary disease (COPD), sleep apnea, or other breathing disorder; ?diabetes (taking metoprolol may make it harder for you to tell when you have low blood sugar); ?liver disease; ?congestive heart failure; ?problems with circulation (such as Raynaud's syndrome); ?a thyroid disorder; or ?pheochromocytoma (tumor of the adrenal gland). ?? Do not give this medicine to a child without medical advice. ?? Tell your doctor if you are or plan to become . ??It is not known whether metoprolol will harm an unborn baby. ??However, having high blood pressure during may cause complications such as diabetes or eclampsia (dangerously high blood pressure that can lead to medical problems in both mother and baby). ??The benefit of treating hypertension may outweigh any risks to the baby.? Ask a doctor before using this medicine if you are breast-feeding.?Metoprolol can pass into breast milk and may cause dry skin, dry mouth, diarrhea, constipation, or slow heartbeats in your baby. ? How should I take metoprolol? Follow all directions on your prescription label and read all medication guides or instruction sheets. ??Your doctor may occasionally change your dose. ??Use the medicine exactly as directed. ?? Metoprolol should be taken with a meal or just after a meal. ?? Take the medicine at the same time each day. ? Swallow the??capsule??whole and do not crush, chew, break, or open it. ?? A??Toprol XL??tablet can be divided in half if your doctor has told you to do so. ??Swallow the half-tablet whole, without chewing or crushing. ? Measure??liquid medicine??carefully. Use the dosing syringe provided, or use a medicine dose-measuring device (not a kitchen spoon). ?? You will need frequent medical tests, and your blood pressure will need to be checked often. ?? If you need surgery, tell the surgeon ahead of time that you are using metoprolol. ? You should not stop using metoprolol suddenly.?Stopping suddenly may make your condition worse. ?? If you have high blood pressure,??keep using this medicine even if you feel well.?High blood pressure often has no symptoms. ??You may need to use metoprolol for the rest of your life. ?? Store at room temperature away from moisture and heat. ?? Metoprolol??injection??is given as an infusion into a vein. ??A healthcare provider will give you this injection in a medical setting where your heart and blood pressure can be monitored. ??Metoprolol injections are given for only a short time before switching you to the??oral??form of this medicine. ? What happens if I miss a dose? Skip the missed dose and use your next dose at the regular time. ??Do not??use two doses at one time. ?? What happens if I overdose? Seek emergency medical attention or call the Poison Help line at . ?? What should I avoid while taking metoprolol? Avoid driving or hazardous activity until you know how this medicine will affect you. ??Your reactions could be impaired. ?? Drinking alcohol can increase certain side effects of metoprolol. ?? What are the possible side effects of metoprolol? Get emergency medical help if you have??signs of an allergic reaction:?hives; difficulty breathing; swelling of your face, lips, tongue, or throat. ?? Call your doctor at once if you have: ?very slow heartbeats; ?a light-headed feeling, like you might pass out; ?shortness of breath (even with mild exertion), swelling, rapid weight gain; or ?cold feeling in your hands and feet. ?? Common side effects may include: ?dizziness, tired feeling; ?depression, confusion, memory problems; ?nightmares, trouble sleeping; ?diarrhea; or ?mild itching or rash. ?? This is not a complete list of side effects and others may occur. Call your doctor for medical advice about side effects. You may report side effects to FDA at 5-832-AUG-9650. ?? What other drugs will affect metoprolol? Tell your doctor about all your current medicines.?Many drugs can affect metoprolol, especially: ?any other heart or blood pressure medications; ?epinephrine (Epi-Pen); ?an antidepressant; ?an ergot medicine--dihydroergotamine, ergonovine, ergotamine, methylergonovine; or ?an MAO inhibitor--isocarboxazid, linezolid, phenelzine, rasagiline, selegiline, tranylcypromine. ?? This list is not complete and many other drugs may affect metoprolol.??This includes prescription and qrya-aeg-ozesmic medicines, vitamins, and herbal products. Not all possible drug interactions arelisted here. ?? Where can I get more information? Your pharmacist can provide more information about metoprolol. ?? Remember, keep this and all other medicines out of the reach of children, never share your medicines with others, and use this medication only for the indication prescribed. ?? Every effort has been made to ensure that the information provided by [employer]. [employer]') is accurate, up-to-date, and complete, but no guarantee is made to that effect. Drug information contained herein may be time sensitive. [employer] information has been compiled for use by healthcare practitioners and consumers in the [place] and therefore [employer] does not warrant that uses outside of the [place] are appropriate, unless specifically indicated otherwise. [employer] drug information does not endorse drugs, diagnose patients or recommend therapy. [employer] drug information isan informational resource designed to assist licensed healthcare practitioners in caring for their p atients and/or to serve consumers viewing this service as a supplement to, and not a substitute for, the expertise, skill, knowledge and judgment of healthcare practitioners. The absence of a warningfor a given drug or drug combination in no way should be construed to indicate that the drug or drug combination is safe, effective or appropriate for any given patient. [employer] does not assume any responsibility for any aspect of healthcare administered with the aid of information [employer] provides. The information contained herein is not intended to cover all possible uses, directions, precautions, warnings, drug interactions, allergic reactions, or adverse effects. If you have questions about the drugs you are taking, check with your doctor, nurse or pharmacist.? Copyright 2313-8340 [employer]. Version: 19.. Revision Date: 06/17/2023. ?? empagliflozin?? (VIKASH cartagena) ?? Jardiance? What is the most important information I should know about empagliflozin? Call your doctor at once if you have??signs of a serious side effect, such as stomach pain, vomiting, tiredness, or trouble breathing. ?? Tell your doctor if you are sick with vomiting or diarrhea, or if you eat or drink less than usual. ?? Empagliflozin can cause serious infections around the penis or vagina.??Get medical help right awayif you have burning, itching, odor, discharge, pain, tenderness, redness or swelling of the genitalor rectal area, fever, or if you don't feel well.? What is empagliflozin? Empagliflozin is used together with diet and exercise to lower blood sugar levels in adults and children at least 10 years old with type 2 diabetes. ? Empagliflozin is also used to lower the risk of from heart attack, stroke, or heart failure in adults with type 2 diabetes who also have heart disease. ?? Empagliflozin is also used in adults to lower the risk of dying or needing to be in a hospital for heart failure when the heart cannot pump blood properly. ?? Empagliflozin is not for treating type 1 diabetes. ?? Empagliflozin may also be used for purposes not listed in this medication guide. ?? What should I discuss with my healthcare provider before taking empagliflozin? You should not use empagliflozin if you are allergic to it, or if you have: ?severe kidney disease (or if you are on dialysis). ?? Tell your doctor if you have or have ever had: ?a bladder infection or urination problems;?a genital infection (penis or vagina); ?problems with your pancreas, including surgery;?alcoholism, or if you currently drink large amounts of alcohol; ?if you are on a low salt diet, you are eating less, or there is a change in your diet; ?if you are 65 or older; or ?liver or kidney disease. ?? Follow your doctor's instructions about using this medicine??if you are or you become .??Controlling diabetes is very important during .? You should not use empagliflozin during the second or third trimester of . ?? Do not breastfeed. ?? How should I take empagliflozin? Follow all directions on your prescription label and read all medication guides or instruction sheets. Your doctor may occasionally change your dose. Use the medicine exactly as directed. ?? Take empagliflozin once a day in the morning, with or without food. ?? Your blood sugar will need to be checked often, and you may also need to test the level of ketones in your urine.??Empagliflozin can cause life-threatening ketoacidosis (too much acid in the blood).??Even if your blood sugar is normal, contact your doctor if a urine test shows that you have high ketones in the urine.? Blood sugar can be affected by stress, illness, surgery, exercise, alcohol use, or skipping meals.? Low blood sugar??(hypoglycemia)??can make you feel very hungry, dizzy, irritable, or shaky. To quickly treat hypoglycemia, eat or drink hard candy, crackers, raisins, fruit juice, or non-diet soda. Your doctor may prescribe glucagon injection in case of severe hypoglycemia. ?? You may get dehydrated during prolonged illness. Call your doctor if you are sick with vomiting or diarrhea. ?? This medicine can affect the results of certain medical tests. Tell any doctor who treats you that you are using empagliflozin. ?? Your treatment may also include diet, exercise, weight control, and special medical care. ?? Tell your doctor if you have a planned surgery. ?? Store at room temperature away from moisture and heat. ?? What happens if I miss a dose? Take the medicine as soon as you can, but skip the missed dose if it is almost time for your next dose.??Do not??take two doses at one time.? What happens if I overdose? Seek emergency medical attention or call the Poison Help line at .? What should I avoid while taking empagliflozin? Avoid drinking alcohol. ?? Avoid getting up too fast from a sitting or lying position, or you may feel dizzy. ?? What are the possible side effects of empagliflozin? Get emergency medical help if you have??signs of an allergic reaction: hives, difficult breathing, swelling of your face, lips, tongue, or throat. ?? Seek medical attention right away if you have signs of a serious genital infection (penis or vagina):?burning, itching, odor, discharge, pain, tenderness, redness or swelling of the genital or rectal area, fever, not feeling well.??These symptoms may get worse quickly. ?? Call your doctor at once if you have: ?a light-headed feeling, like you might pass out; ?low blood sugar--headache, hunger, weakness, sweating, confusion, irritability, dizziness, fastheart rate, or feeling jittery; ?dehydration--dizziness, confusion, feeling very thirsty, less urination; ?ketoacidosis (too much acid in the blood)--nausea, vomiting, stomach pain, confusion, unusual drowsiness, or trouble breathing; or ?signs of a bladder infection--pain or burning when you urinate, blood in your urine, pain in pelvis or back. ?? Common side effects may include: ?a bladder infection; or ?yeast infection in women (vaginal itching or discharge). ?? This is not a complete list of side effects and others may occur. Call your doctor for medical advice about side effects. You may report side effects to FDA at 0-636-EVO-6753. ?? What other drugs will affect empagliflozin? Tell your doctor about all your other medicines, especially: ?insulin, or other oral diabetes medicine; or ?a diuretic or 'water pill.' ?? This list is not complete. Other drugs may affect empagliflozin, including prescription and ycgm-rzp-exisgcm medicines, vitamins, and herbal products. Not all possible drug interactions are listed here. ?? Where can I get more information? Your doctor or pharmacist can provide more information about empagliflozin. ?? Remember, keep this and all other medicines out of the reach of children, never share your medicines with others, and use this medication only for the indication prescribed. ?? Every effort has been made to ensure that the information provided by [email or web address]. [employer]') is accurate, up-to-date, and complete, but no guarantee is made to that effect. Drug information contained herein may be time sensitive. [employer] information has been compiled for use by healthcare practitioners and consumers in the [place] and therefore [employer] does not warrant that uses outside of the [place] are appropriate, unless specifically indicated otherwise. [employer] drug information does not endorse drugs, diagnose patients or recommend therapy. [employer] drug information isan informational resource designed to assist licensed healthcare practitioners in caring for their p atients and/or to serve consumers viewing this service as a supplement to, and not a substitute for, the expertise, skill, knowledge and judgment of healthcare practitioners. The absence of a warningfor a given drug or drug combination in no way should be construed to indicate that the drug or drug combination is safe, effective or appropriate for any given patient. [employer] does not assume any responsibility for any aspect of healthcare administered with the aid of information [employer] provides. The information contained herein is not intended to cover all possible uses, directions, precautions, warnings, drug interactions, allergic reactions, or adverse effects. If you have questions about the drugs you are taking, check with your doctor, nurse or pharmacist.? Copyright 4367-5276 [email or web address]. Version: 6.01. Revision Date: 07/06/2023. ?? levothyroxine (oral/injection)?? (MIKAYLA voe thye DMITRIY een) ?? Ermeza, Euthyrox, Levo-T, Levoxyl, Synthroid, Thyquidity, Tirosint, Tirosint- Dot, Unithroid? What is the most important information I should know about levothyroxine? You may not be able to use levothyroxine if you have certain medical conditions.??Tell your doctor if you have an untreated or uncontrolled adrenal gland disorder or any heart problems such as a recent heart attack. ?? Levothyroxine should not be used to treat obesity or weight problems. ?? Taking more than your recommended dose will not make this medicine more effective, and may cause serious side effects. ?? What is levothyroxine? Levothyroxine??oral??is used in adults and children to treat hypothyroidism (underactive thyroid). ?? Levothyroxine??oral??is also used in adults along with surgery and radioactive iodine therapy to treat a certain type of thyroid cancer. ?? Levothyroxine??oral capsule??can only be used in adults and children at least 6 years old. ?? Levothyroxine??injection??is used in adults to treat myxedema coma. ?? There are many brand forms of levothyroxine available. Not all brands are listed on this medicationguide. ?? Levothyroxine may also be used for purposes not listed in this medication guide. ?? What should I discuss with my healthcare provider before using levothyroxine? Levothyroxine should not be used to treat obesity or weight problems.??Dangerous side effects or can occur from the misuse of levothyroxine, especially if you are taking any other weight-loss medications or appetite suppressants. ?? You should not use levothyroxine if you are allergic to glycerin or edetate disodium, or if you have an untreated or uncontrolled adrenal gland disorder. ?? Tell your doctor if you have or have ever had: ?a thyroid nodule; ?thyroiditis (inflammation of thyroid gland); ?heart problems such as a heart attack, stroke; ?a blood clot or a blood clotting disorder; ?diabetes (your diabetes medicine may need to be adjusted); ?anemia (low red blood cells); ?weak bones (osteoporosis), or low bone mineral density; ?problems with your pituitary or adrenal gland; ?an allergy to any food or drugs; ?recently received radiation therapy with iodine (such as I-131); or ?kidney disease. ?? Tell your doctor if you are or plan to become . Having hypothyroidism during may increase the risk of premature or other complications. The benefit of treating hypothyroidism may outweigh any risks to the baby.??Your dose needs may be different during . ?? Tell your doctor if you are .??Your dose needs may be different while you are nursing. ?? You may be more likely to have a broken bone while using levothyroxine. Talk with your doctor aboutways to keep your bones healthy. ?? How should I use levothyroxine? Follow all directions on your prescription label and read all medication guides or instruction sheets. Your doctor may occasionally change your dose. Use the medicine exactly as directed. ?? Levothyroxine??oral??is taken by mouth. Levothyroxine??injection??is given into a vein. ?? Take levothyroxine??oral??on an empty stomach, at least 30 to 60 minutes before breakfast with a full glass of water. Take the medicine at the same time each day. ?? Swallow the??capsule??whole and do not crush, chew, break, or open it. ?? If you cannot swallow a tablet whole,??crush the tablet, and mix with 1 or 2 teaspoons of water; give the mixture right away. Do not save it for later use. ?? Tell your doctor if your child cannot swallow a capsule whole. ?? Measure??liquid medicine??with the supplied measuring device (not a kitchen spoon). ?? Doses are based on weight in children and teenagers. Your child's dose may change if the child gains or loses weight. ?? Your dose needs may change if you switch to a different brand, strength, or form of this medicine.??Avoid medication errors by using only the medicine your doctor prescribes. ?? Keep using this medicine even if you feel well.??You may not fully benefit from this medicine for several weeks. ?? You will need frequent medical tests, and your next dose may be delayed based on the results. ?? This medicine can affect the results of certain medical tests. Tell any doctor who treats you that you are using levothyroxine. ?? Tell your doctor if you have a planned surgery or dental procedure. ?? Taking more than your recommended dose will not make this medicine more effective, and may cause serious side effects. ?? Keep each??tablet??or??capsule??in the blister pack until you are ready to take one. ?? Store??Ermeza??and??Thyquidity??in original bottle. Use??Ermeza??within 90 days and??Thyquidity??within 8 weeks of opening the bottle. ?? Use??Tirosint-Dot??within 3 months after opening the pouch. ?? Store at room temperature away from moisture, heat, and light. ?? What happens if I miss a dose? In a medical setting you are not likely to miss a dose of levothyroxine??injection. ?? Take the levothyroxine??oral??as soon as you remember, and then go back to your regular schedule.??Do not??use two doses at one time. ?? What happens if I overdose? Seek emergency medical attention or call the Poison Help line at .??An overdose can be fatal. ?? Overdose symptoms may include headache, leg cramps, tremors, feeling nervous or irritable, chest pain, shortness of breath, fast or pounding heartbeats, stroke, and coma. ?? What should I avoid while using levothyroxine? Avoid the following food products within 1 hour of taking levothyroxine oral or the medication willnot be as effective:??grapefruit juice, infant soy formula, soybean flour, cotton seed meal, walnuts, and high-fiber foods.? What are the possible side effects of levothyroxine? Get emergency medical help if you have??signs of an allergic reaction: hives, difficult breathing, swelling of your face, lips, tongue, or throat. ?? Call your doctor at once if you have: ?sudden pain or trouble moving your hip, wrist, or back; ?fast or irregular heartbeats; ?chest pain, pain spreading to your jaw or shoulder; ?wheezing; ?fever, swollen glands, itching, joint pain, or not feeling well; ?nausea, vomiting, or diarrhea; or ?high blood sugar--increased thirst, increased urination, dry mouth, fruity breath odor. ?? Common side effects may include: ?fever, hot flashes, increased sweating; ?tiredness; ?skin rash, hair loss; ?chest pain, fast or irregular heartbeats, shortness of breath; ?headache, leg cramps, muscle pain or weakness; ?tremors, feeling nervous or irritable, sleep problems (insomnia); ?increased or change in appetite; ?weight loss or weight gain; ?changes in your menstrual periods; or ?vomiting, diarrhea. ?? This is not a complete list of side effects and others may occur. Call your doctor for medical advice about side effects. You may report side effects to FDA at 9-390-YFS-1093. ?? What other drugs will affect levothyroxine? Sometimes it is not safe to use certain medicines at the same time.??Some drugs can affect your thyroid hormone levels and also make levothyroxine less effective. ?? If you use any of the following drugs, avoid taking them within 4 hours before or 4 hours after youuse levothyroxine: ?calcium carbonate (Munira-Mints, Caltrate, Os-Bassam, Oyster Shell Calcium, Rolaids Soft Chew, Tums,and others); ?sevelamer, lanthanum; ?cholestyramine, colesevelam, colestipol; ?iron supplements; ?sucralfate; ?sodium polystyrene sulfonate (Kalexate, Kayexalate, Kionex); ?stomach acid reducers--esomeprazole, lansoprazole, omeprazole, rabeprazole, Nexium, Prilosec, Prevacid, Protonix, Zegerid, and others; or ?antacids that contain aluminum or magnesium--Gaviscon, Maalox, Milk of Magnesia, Mintox, Mylanta, Pepcid Complete, and others. ?? Tell your doctor about all your other medicines, especially: ?orlistat; ?phenobarbital, rifampin; ?ketamine, steroid medicines; ?antidepressants such as amitriptyline or maprotiline; ?heart or blood pressure medication; ?diabetes medications; ?cancer medicine such as imatinib; or ?a blood thinner--warfarin, Coumadin, Jantoven. ?? This list is not complete and many other drugs may affect levothyroxine.??This includes prescription and nabw-qkn-grwyaqt medicines, vitamins, and herbal products. Not all possible drug interactions are listed here. ?? Where can I get more information? Your doctor or pharmacist can provide more information about levothyroxine. ?? Remember, keep this and all other medicines out of the reach of children, never share your medicines with others, and use this medication only for the indication prescribed. ?? Every effort has been made to ensure that the information provided by [employer]. ('[employer]') is accurate, up-to-date, and complete, but no guarantee is made to that effect. Drug information contained herein may be time sensitive. [employer] information has been compiled for use by healthcare practitioners and consumers in the [place] and therefore [employer] does not warrant that uses outside of the [place] are appropriate, unless specifically indicated otherwise. [employer] drug information does not endorse drugs, diagnose patients or recommend therapy. [employer] drug information isan informational resource designed to assist licensed healthcare practitioners in caring for their p atients and/or to serve consumers viewing this service as a supplement to, and not a substitute for, the expertise, skill, knowledge and judgment of healthcare practitioners. The absence of a warningfor a given drug or drug combination in no way should be construed to indicate that the drug or drug combination is safe, effective or appropriate for any given patient. [employer] does not assume any responsibility for any aspect of healthcare administered with the aid of information [employer] provides. The information contained herein is not intended to cover all possible uses, directions, precautions, warnings, drug interactions, allergic reactions, or adverse effects. If you have questions about the drugs you are taking, check with your doctor, nurse or pharmacist.? Copyright 2455-8175 [employer]. Version: 18.01. Revision Date: 07/23/2023. ?? atorvastatin?? (a TOR va sta tin) ?? Atorvaliq, Lipitor? What is the most important information I should know about atorvastatin? You should not take atorvastatin if you have liver disease or cirrhosis. ?? Atorvastatin can cause the breakdown of muscle tissue, which can lead to kidney failure. ??Call your doctor right away if you have unexplained muscle pain, tenderness, or weakness especially if you also have fever, unusual tiredness, or dark urine. ?? What is atorvastatin? Atorvastatin is used together with diet to lower blood levels of 'bad' cholesterol (low-density lipoprotein, or LDL), to increase levels of 'good' cholesterol (high-density lipoprotein, or HDL), and to lower triglycerides (a type of fat in the blood). ?? Atorvastatin is used to lower the risk of stroke, heart attack, or other heart complications in adults with or without type 2 diabetes or heart disease or other risk factors.? Atorvastatin is also used alone, or along with diet, or with other cholesterol- lowering medicationsin adults and children aged 10 years and older with an inherited condition that causes high levels of bad cholesterol. ?? Atorvastatin may also be used for purposes not listed in this medication guide. ?? What should I discuss with my healthcare provider before taking atorvastatin? You should not use atorvastatin if you are allergic to it, or if you have liver failure or cirrhosis. ?? Tell your doctor if you have or have ever had: ?muscle pain or weakness; ?diabetes; ?stroke; ?a thyroid disorder;?a habit of drinking more than 2 alcoholic beverages per day; or ?kidney disease. ?? Atorvastatin can cause the breakdown of muscle tissue, which can lead to kidney failure.??This happens more often in women, in older adults, or people who have kidney disease or poorly controlled hypothyroidism (underactive thyroid). ?? Atorvastatin may harm an unborn baby.??Tell your doctor if you are . ?? Ask a doctor if it is safe to breastfeed while using this medicine. ?? How should I take atorvastatin? Follow all directions on your prescription label and read all medication guides or instruction sheets. ??Your doctor may occasionally change your dose. Use the medicine exactly as directed. ?? Do not change your dose or stop taking any of your medications without your doctor's advice.? Atorvastatin is usually taken once per day. Follow your doctor's instructions. ?? You may take??atorvastatin tablet??with or without food. ?? Take??atorvastatin liquid??medicine on an empty stomach, at least 1 hour before a meal or 2 hours after a meal. ?? It may take up to 2 weeks before your cholesterol levels improve, and you may need frequent blood tests. ??Even if you have no symptoms, tests can help your doctor determine if this medicine is effective. ?? Shake the??oral suspension??(liquid). Measure a dose with the supplied measuring device (not a kitchen spoon). ?? Your treatment may also include diet, exercise, weight control, and blood tests.? Store at room temperature away from moisture, heat, and light. ?? Throw away in the trash any unused liquid 60 days after opening the bottle. ?? What happens if I miss a dose? Take the medicine as soon as you can, but skip the missed dose if you are more than 12 hours late for the dose.??Do not??take two doses at one time.? What happens if I overdose? Seek emergency medical attention or call the Poison Help line at . ?? What should I avoid while taking atorvastatin? Avoid eating foods high in fat or cholesterol, or atorvastatin will not be as effective. ?? Drinking alcohol may increase your risk of liver damage. ?? Grapefruit may interact with atorvastatin and cause side effects.??Avoid consuming grapefruit products and drinking more than 1.2 liters of grapefruit juice each day. ?? What are the possible side effects of atorvastatin? Get emergency medical help if you have??signs of an allergic reaction??(hives, difficult breathing,swelling in your face or throat)??or a severe skin reaction??(fever, sore throat, burning eyes, skin pain, red or purple skin rash with blistering and peeling). ?? Atorvastatin can cause the breakdown of muscle tissue, which can lead to kidney failure. Call your doctor right away if you have unexplained muscle pain, tenderness, or weakness especially if you also have fever, unusual tiredness, or dark urine. ?? Muscle problems may be more likely in older adults and those who have kidney problems, thyroid problems, or take certain other medicines. ?? Also call your doctor at once if you have: ?muscle weakness in your hips, shoulders, neck, and back; ?trouble lifting your arms, trouble climbing or standing; ?liver problems--loss of appetite, stomach pain (upper right side), tiredness, itching, dark urine, leo-colored stools, jaundice (yellowing of the skin or eyes); ?kidney problems--swelling, urinating less, feeling tired or short of breath; or ?high blood sugar--increased thirst, increased urination, dry mouth, fruity breath odor. ?? Common side effects may include: ?pain in your bones, spine, joints, or muscles; ?pain and burning when you urinate, painful urination; ?muscle spasms; ?upset stomach;?trouble sleeping; ?stuffy nose, runny nose, sore throat; ?diarrhea, nausea; or?pain in your arms or legs. ?? This is not a complete list of side effects and others may occur. Call your doctor for medical advice about side effects. You may report side effects to FDA at 8-239-TVG-1858. ?? What other drugs will affect atorvastatin? Sometimes it is not safe to use certain medicines at the same time.??Some drugs can affect your blood levels of other drugs you use, which can increase risk of serious muscle problems or make the medicines less effective.? Tell your doctor about all your current medicines.??Many drugs can affect atorvastatin, especially:?other cholesterol lowering medicine--gemfibrozil, niacin, fenofibrate, fenofibric acid, and others; ?colchicine; ?antibiotic or antifungal medicine--rifampin, erythromycin, clarithromycin, itraconazole, ketoconazole, posaconazole, and voriconazole; ? control pills; ?medicine to prevent organ transplant rejection; or ?antiviral medicine to treat hepatitis C or HIV.? This list is not complete and many other drugs may affect atorvastatin.??This includes prescriptionand ezun-hie-osxivic medicines, vitamins, and herbal products. Not all possible drug interactions are listed here. ?? Where can I get more information? Your doctor or pharmacist can provide more information about atorvastatin. ?? Remember, keep this and all other medicines out of the reach of children, never share your medicines with others, and use this medication only for the indication prescribed. ?? Every effort has been made to ensure that the information provided by [employer]') is accurate, up-to-date, and complete, but no guarantee is made to that effect. Drug information contained herein may be time sensitive. [employer] information has been compiled for use by healthcare practitioners and consumers in the [place] and therefore [employer] does not warrant that uses outside of the [place] are appropriate, unless specifically indicated otherwise. [employer] drug information does not endorse drugs, diagnose patients or recommend therapy. [employer] drug information isan informational resource designed to assist licensed healthcare practitioners in caring for their p atients and/or to serve consumers viewing this service as a supplement to, and not a substitute for, the expertise, skill, knowledge and judgment of healthcare practitioners. The absence of a warningfor a given drug or drug combination in no way should be construed to indicate that the drug or drug combination is safe, effective or appropriate for any given patient. [employer] does not assume any responsibility for any aspect of healthcare administered with the aid of information [employer] provides. The information contained herein is not intended to cover all possible uses, directions, precautions, warnings, drug interactions, allergic reactions, or adverse effects. If you have questions about the drugs you are taking, check with your doctor, nurse or pharmacist.? Copyright [id number] [email or web address]. Version: 23.. Revision Date: 04/30/2023. ?? losartan?? (mayte cisneros) ?? Cozaar? What is the most important information I should know about losartan? Do not use if you are . Stop using this medicine and tell your doctor right away if you become . ? Tell your doctor about all your other medicines.??Some drugs should not be used with losartan. ?? What is losartan? Losartan is used alone or in combination with other medicines to treat high blood pressure in adults and children at least 6 years old.? Lowering blood pressure may lower your risk of a stroke in certain people with heart disease. ?? Losartan is also used to slow long-term kidney damage in people with type 2 diabetes who have high blood pressure. ?? Losartan may also be used for purposes not listed in this medication guide. ?? What should I discuss with my healthcare provider before taking losartan? You should not use losartan if you are allergic to it. ?? If you have diabetes,??do not take losartan with any medication that contains aliskiren (a blood pressure medicine). ?? Tell your doctor if you have ever had: ?heart disease or congestive heart failure; ?an electrolyte imbalance (such as high levels of potassium in your blood);?if you are on a low-salt diet;?liver disease; or ?kidney disease. ?? You may also need to avoid taking losartan with aliskiren??if you have kidney disease. ?? Stop using this medicine and tell your doctor right away if you become .??Losartan can cause injury or to the unborn baby if you use the medicine during your second or third trimester. ?? Tell your doctor if you are . ?? How should I take losartan? Follow all directions on your prescription label and read all medication guides or instruction sheets. ??Your doctor may occasionally change your dose. ??Use the medicine exactly as directed. ?? Losartan is usually taken once per day. ?? You may take losartan with or without food. ?? Call your doctor if you are sick with vomiting or diarrhea, or if you are sweating more than usual.??You can easily become dehydrated while taking losartan. ??This can lead to very low blood pressure, a serious electrolyte imbalance, or kidney failure. ? Your blood pressure will need to be checked often and you may need frequent blood tests. ? If you have high blood pressure,??keep using this medicine even if you feel well.??High blood pressure often has no symptoms. ?? Store tightly closed at room temperature, away from moisture, heat, and light. ?? What happens if I miss a dose? Take the medicine as soon as you can, but skip the missed dose if it is almost time for your next dose.??Do not??take two doses at one time.? What happens if I overdose? Seek emergency medical attention or call the Poison Help line at . ?? What should I avoid while taking losartan? Avoid getting up too fast from a sitting or lying position, or you may feel dizzy. ?? Do not use potassium supplements or salt substitutes, unless your doctor has told you to. ?? What are the possible side effects of losartan? Get emergency medical help if you have??signs of an allergic reaction:?hives, difficulty breathing, swelling of your face, lips, tongue, or throat. ?? Call your doctor at once if you have: ?a light-headed feeling, like you might pass out; ?high blood potassium--nausea, weakness, tingly feeling, chest pain, irregular heartbeats, loss of movement; or ?kidney problems--swelling, urinating less, feeling tired or short of breath. ?? Common side effects may include: ?dizziness, tiredness; ?low blood pressure; ?low blood sugar; ?diarrhea; ?back pain; or ?cold symptoms such as stuffy nose, sneezing, sore throat. ?? This is not a complete list of side effects and others may occur. Call your doctor for medical advice about side effects. You may report side effects to FDA at 7-820-KMW-9798. ?? What other drugs will affect losartan? Sometimes it is not safe to use certain medicines at the same time.??Some drugs can affect your blood levels of other drugs you use, which may increase side effects or make the medicines less effective.? Tell your doctor about all your other medicines, especially: ?a diuretic or 'water pill' that may increase blood potassium such as spironolactone, triamterene, amiloride; ?NSAIDs (nonsteroidal anti-inflammatory drugs)--aspirin, ibuprofen (Advil, Motrin), naproxen (Aleve), celecoxib, diclofenac, indomethacin, meloxicam, and others; or ?heart or blood pressure medication. ?? This list is not complete. ??Other drugs may affect losartan, including prescription and kjfl-rnp-rhpfeop medicines, vitamins, and herbal products. ??Not all possible drug interactions are listed here. ?? Where can I get more information? Your doctor or pharmacist can provide more information about losartan. ?? Remember, keep this and all other medicines out of the reach of children, never share your medicines with others, and use this medication only for the indication prescribed. ?? Every effort has been made to ensure that the information provided by [email or web address]. [employer]') is accurate, up-to-date, and complete, but no guarantee is made to that effect. Drug information contained herein may be time sensitive. [employer] information has been compiled for use by healthcare practitioners and consumers in the [place] and therefore [employer] does not warrant that uses outside of the [place] are appropriate, unless specifically indicated otherwise. [employer] drug information does not endorse drugs, diagnose patients or recommend therapy. [employer] drug information isan informational resource designed to assist licensed healthcare practitioners in caring for their p atients and/or to serve consumers viewing this service as a supplement to, and not a substitute for, the expertise, skill, knowledge and judgment of healthcare practitioners. The absence of a warningfor a given drug or drug combination in no way should be construed to indicate that the drug or drug combination is safe, effective or appropriate for any given patient. [employer] does not assume any responsibility for any aspect of healthcare administered with the aid of information [employer] provides. The information contained herein is not intended to cover all possible uses, directions, precautions, warnings, drug interactions, allergic reactions, or adverse effects. If you have questions about the drugs you are taking, check with your doctor, nurse or pharmacist.? Copyright [id number] [email or web address]. Version: 19.. Revision Date: 05/07/2023. ?? alendronate?? (a MARISA meli [place]) ?? Binosto, Fosamax? What is the most important information I should know about alendronate? You should not take alendronate if you have problems with your esophagus, or low levels of calcium in your blood. ?? Do not take alendronate if you cannot sit upright or stand for at least 30 minutes after taking themedicine. ?? Alendronate can cause serious problems in the stomach or esophagus.??Stop using alendronate and call your doctor at once if you have chest pain, new or worsening heartburn, or pain when swallowing.? Also call your doctor if you have muscle spasms, numbness or tingling (in hands and feet or around the mouth), new or unusual hip pain, or severe pain in your joints, bones, or muscles. ?? What is alendronate? Alendronate is used to treat osteoporosis caused by menopause, steroid use, or gonadal failure. ??This medicine is for use when you have a high risk of bone fracture due to osteoporosis. ? Alendronate is also used to treat Paget's disease of bone. ?? Alendronate may also be used for purposes not listed in this medication guide. ?? What should I discuss with my healthcare provider before taking alendronate? You should not take alendronate if you are allergic to it, or if you have: ?low levels of calcium in your blood (hypocalcemia); or?problems with the muscles in your esophagus (the tube that connects your mouth and stomach). ?? Do not take alendronate if you cannot sit upright or stand for at least 30 minutes.?Alendronate can cause serious problems in the stomach or esophagus. You must stay upright for at least 30 minutes after taking this medicine. ?? Tell your doctor if you have ever had: ?trouble swallowing; ?problems with your stomach or digestion; ?hypocalcemia; ?a dental problem (you may need a dental exam before you begin taking alendronate); ?kidney disease; or ?any condition that makes it hard for your body to absorb nutrients from food (malabsorption). ?? The effervescent tablet contains a lot of sodium. ??Tell your doctor if you are on a low-salt diet before using this form of alendronate. ?? This medicine may cause jaw bone problems (osteonecrosis).?The risk is highest in people with cancer, blood cell disorders, pre-existing dental problems, or people treated with steroids, chemotherapy, or radiation. ??Ask your doctor about your own risk.? It is not known whether this medicine will harm an unborn baby. Tell your doctor if you are or trying to become . ??Stop using the medicine and tell your doctor right away if you become . ?? It may not be safe to breastfeed while using this medicine. Ask your doctor about any risk. ?? How should I take alendronate? Follow all directions on your prescription label and read all medication guides or instruction sheets. ??Use the medicine exactly as directed. ?? Alendronate is taken either once daily or once per week. ??Follow your doctor's dosing instructionsvery carefully. ?? Take alendronate first thing in the morning,??at least 30 minutes before you eat or drink anything or take any other medicine.??If you take alendronate only once per week, take it on the same day each week and always first thing in the morning. ?? Take with a full glass (6 to 8 ounces) of plain water. ??Do not use coffee, tea, soda, juice, or mineral water. ??Do not eat or drink anything other than plain water. ?? Measure??liquid medicine??carefully. Use the dosing syringe provided, or use a medicine dose-measuring device (not a kitchen spoon). ?? Do not crush, chew, or suck on an alendronate??regular tablet.??Swallow it whole. ?? Dissolve the??effervescent tablet??in at least 4 ounces of water (at room temperature, not hot or cold). ??Let the tablet dissolve for 5 minutes. ??Stir this mixture for 10 seconds and drink all of it right away. ??Add a little more water to the glass, swirl gently and drink right away.? For at least 30 minutes after taking alendronate: ?Do not lie down or recline. ?Do not take any other medicine??including vitamins, calcium, or antacids. ? Pay special attention to your dental hygiene while taking alendronate. ??[place] and floss your teethregularly. ??If you need to have any dental work (especially surgery),??tell the dentist ahead of time that you are using alendronate. ? Alendronate is only part of a complete program of treatment that may also include diet changes, exercise, bone mineral density testing, and taking calcium and vitamin supplements. ??Follow your doctor's instructions very closely. ?? Store at room temperature away from moisture and heat. ??Keep unused effervescent tablets in the foil blister pack. ?? Your doctor will determine how long to treat you with this medicine. ??Alendronate is often given for only 3 to 5 years. ? What happens if I miss a dose? Once-daily dosing:??If you forget to take alendronate first thing in the morning, do not take it later in the day. ??Wait until the following morning and skip the missed dose. ??Do not??take two (2) doses in one day. ?? Ailc-ulm-escd dosing:??If you forget to take alendronate on your scheduled day, take it first thingin the morning on the day after you remember the missed dose. ??Then return to your regular weekly schedule on your chosen dose day.??Do not??take 2 doses in one day. ?? What happens if I overdose? Drink a full glass of milk and seek emergency medical attention or call the Poison Help line at . ??Do not make yourself vomit and do not lie down. ?? What should I avoid while taking alendronate? Avoid taking any other medicines for at least 30 minutes after taking alendronate. ??This includes vitamins, calcium, and antacids.?Some medicines can make it harder for your body to absorb alendronate. ?? Avoid smoking, or try to quit. ??Smoking can reduce your bone mineral density, making fractures more likely. ?? Avoid drinking large amounts of alcohol. ??Heavy drinking can also cause bone loss. ?? What are the possible side effects of alendronate? Get emergency medical help if you have??signs of an allergic reaction:?hives; wheezing, difficulty breathing; swelling of your face, lips, tongue, or throat. ?? Stop using alendronate and call your doctor at once if you have: ?chest pain, new or worsening heartburn; ?difficulty or pain when swallowing; ?pain or burning under the ribs or in the back; ?severe heartburn, burning pain in your upper stomach, or coughing up blood; ?new or unusual pain in your thigh or hip; ?jaw pain, numbness, or swelling; ?severe joint, bone, or muscle pain; or ?low calcium levels--muscle spasms or contractions, numbness or tingly feeling (around your mouth, or in your fingers and toes). ?? Common side effects may include: ?heartburn, upset stomach; ?stomach pain, nausea; ?diarrhea, constipation; or ?bone pain, muscle or joint pain. ?? This is not a complete list of side effects and others may occur. Call your doctor for medical advice about side effects. You may report side effects to FDA at 5-903-NJD-5588. ?? What other drugs will affect alendronate? Tell your doctor about all your other medicines, especially: ?aspirin; or ?NSAIDs (nonsteroidal anti-inflammatory drugs)--ibuprofen (Advil, Motrin), naproxen (Aleve), celecoxib, diclofenac, indomethacin, meloxicam, and others. ?? This list is not complete. ??Other drugs may affect alendronate, including prescription and jubh-ike-yogrciw medicines, vitamins, and herbal products. ??Not all possible drug interactions are listed here. ?? Where can I get more information? Your pharmacist can provide more information about alendronate. ?? Remember, keep this and all other medicines out of the reach of children, never share your medicines with others, and use this medication only for the indication prescribed. ?? Every effort has been made to ensure that the information provided by [email or web address]. [employer] is accurate, up-to-date, and complete, but no guarantee is made to that effect. Drug information contained herein may be time sensitive. [employer] information has been compiled for use by healthcare practitioners and consumers in the [place] and therefore [employer] does not warrant that uses outside of the [place] are appropriate, unless specifically indicated otherwise. [employer] drug information does not endorse drugs, diagnose patients or recommend therapy. [employer] drug information isan informational resource designed to assist licensed healthcare practitioners in caring for their p atients and/or to serve consumers viewing this service as a supplement to, and not a substitute for, the expertise, skill, knowledge and judgment of healthcare practitioners. The absence of a warningfor a given drug or drug combination in no way should be construed to indicate that the drug or drug combination is safe, effective or appropriate for any given patient. [facility] does not assume any responsibility for any aspect of healthcare administered with the aid of information [employer] provides. The information contained herein is not intended to cover all possible uses, directions, precautions, warnings, drug interactions, allergic reactions, or adverse effects. If you have questions about the drugs you are taking, check with your doctor, nurse or pharmacist.? Copyright [id number] [email or web address]. Version: 17.. Revision Date: 06/11/2023. ?? gabapentin?? (GA ba PEN tin) ?? Gralise, Horizant, Neurontin? What is the most important information I should know about gabapentin? Gabapentin can cause life-threatening breathing problems, especially if you already have a breathing disorder or if you use other medicines that can make you drowsy or slow your breathing. Seek emergency medical attention if you have very slow breathing. ?? Some people have thoughts about suicide while taking seizure medicine. Stay alert to changes in your mood or symptoms.??Tell your doctor right away if you have any sudden changes in mood or behavior,or thoughts about suicide. ?? Seizures may increase if you stop using gabapentin suddenly.??Ask your doctor before stopping the medicine. ?? What is gabapentin? Gabapentin is used in adults and children at least 3 years old together with other medicines to treat partial seizures. ?? Gabapentin is also used in adults to treat nerve pain caused by shingles (herpes zoster). ?? Gralise??is used only in adults to treat nerve pain.? Horizant??is used only in adults to treat nerve pain and restless legs syndrome (RLS). ?? Gabapentin may also be used for purposes not listed in this medication guide. ?? What should I discuss with my healthcare provider before taking gabapentin? You should not take gabapentin if you are allergic to it. ?? Tell your doctor if you have or have ever had: ?breathing problems; ?diabetes; ?depression, a mood disorder, or suicidal thoughts or actions; ?drink alcohol; ?a history of drug addiction; ?a seizure; ?(patients with RLS) if you are a day sleeper or work a retail shift leader; or ?kidney disease (or if you are on dialysis). ?? Some people have thoughts about suicide while taking seizure medicine. Children taking gabapentin may have behavior changes. Stay alert to changes in your mood or symptoms. Your family or caregivers should also watch for sudden changes in your behavior. ?? It is not known if gabapentin will harm an unborn baby. Tell your doctor if you are or plan to become . ?? Do not start or stop seizure medication during without your doctor's advice.??Having a seizure during could harm both mother and baby.??Tell your doctor if you become . ?? If you are , your name may be listed on a registry to track the effects of gabapentin on the baby. ?? Ask a doctor if it is safe to breastfeed while using this medicine. ?? How should I take gabapentin? Follow all directions on your prescription label and read all medication guides or instruction sheets. Your doctor may occasionally change your dose. Take the medicine exactly as directed.? Never take gabapentin in larger amounts, or for longer than prescribed. ?? Your dose needs may change if you switch to a different brand, strength, or form of this medicine.??Avoid medication errors by using only the medicine your doctor prescribes. ?? You may take gabapentin with or without food. Take??Gralise??and??Horizant??with food. ?? If you break a Gabapentin tablet and take only half of it, take the other half at your next dose. Any tablet that has been broken should be used as soon as possible or within a few days. ?? Swallow the tablets of??Gralise??and??Horizant??whole. Do not crush, break, or dissolve it. Swallowthe capsule whole and do not crush, chew, break, or open it. ?? Measure??liquid medicine??with the supplied measuring device (not a kitchen spoon). ?? Doses are based on weight in children. Your child's dose may change if the child gains or loses weight. ?? You should not stop taking gabapentin suddenly.?Stopping suddenly may cause increased seizures. Follow your doctor's instructions about tapering your dose. ?? This medicine can affect the results of certain medical tests. Tell any doctor who treats you that you are using gabapentin. ?? Your kidney function may need to be checked often and your dose may change based on the results. ?? Store gabapentin??tablets??and??capsules??at room temperature away from moisture and heat. ?? Store the??liquid medicine??in the refrigerator, do not freeze.? Follow all storage instructions provided with gabapentin. Your pharmacist can provide more information about how to store this medicine. ?? What happens if I miss a dose? Take the medicine as soon as you can, but skip the missed dose if it is almost time for your next dose.??Do not??take two doses at one time.? If you take Horizant:?skip the missed dose and take your next dose at the regular time.??Do not??use two doses at one time. ?? What happens if I overdose? Seek emergency medical attention or call the Poison Help line at .??An overdose can be fatal. ?? Overdose symptoms may include slow breathing, double vision, tremor, slurred speech, drowsiness, change in your mental state, dizziness, tiredness, or diarrhea. ?? What should I avoid while taking gabapentin? Avoid driving or hazardous activity until you know how this medicine will affect you. Dizziness or drowsiness can cause falls, accidents, or severe injuries. ?? Avoid taking an antacid within 2 hours before you take gabapentin.? Do not drink alcohol.??Dangerous side effects could occur. ?? What are the possible side effects of gabapentin? Get emergency medical help if you have??signs of an allergic reaction:??hives, difficult breathing,swelling of your face, lips, tongue, or throat. ?? Seek medical treatment if you have a serious drug reaction that can affect many parts of your body.??Symptoms may include skin rash, fever, swollen glands, muscle aches, severe weakness, unusual bruising, or yellowing of your skin or eyes. ?? Tell your doctor right away if you have new or sudden changes in mood or behavior, including??new or worse depression or anxiety, panic attacks, trouble sleeping, or if you feel impulsive, irritable,agitated, hostile, aggressive, restless, more active or talkative, or have thoughts about suicide or hurting yourself. ?? Gabapentin can slow or stop your breathing, especially if you have recently used an opioid medication or alcohol.??A person caring for you should seek emergency medical attention if you have slow breathing with long pauses, blue colored lips, or if you are hard to wake up. ?? Some side effects are more likely in children taking gabapentin.??Call your doctor if the child hasany of the following side effects: behavior changes, memory problems, trouble concentrating, or acting restless, hostile, or aggressive. ?? Call your doctor at once if you have: ?drowsiness, dizziness, weakness; ?problems with balance or muscle movement; or ?increased seizures. ?? Common side effects may include: ?fever, chills, sore throat, body aches, tiredness; ?headache; ?swelling of your legs and feet; ?trouble speaking; ?vision problems, dizziness, drowsiness;?tremors, problems with balance or muscle movement; or ?nausea, vomiting. ?? This is not a complete list of side effects and others may occur. Call your doctor for medical advice about side effects. You may report side effects to FDA at 8-229-BDR-0146. ?? What other drugs will affect gabapentin? Taking gabapentin with other drugs that make you drowsy or slow your breathing can cause dangerous side effects or .??Ask your doctor before taking opioid medication, a sleeping pill, a muscle relaxer, or medicine for anxiety or seizures. ?? Tell your doctor about all your current medicines.??Many drugs can affect gabapentin, especially: ?naproxen; ?opioid medicine--hydrocodone, oxycodone, morphine, buprenorphine; ?zolpidem; ?lorazepam; or ?cimetidine. ?? This list is not complete and many other drugs may affect gabapentin.??This includes prescription and gydr-gws-gdyqacj medicines, vitamins, and herbal products. Not all possible drug interactions arelisted here. ?? Where can I get more information? Your doctor or pharmacist can provide more information about gabapentin. ?? Remember, keep this and all other medicines out of the reach of children, never share your medicines with others, and use this medication only for the indication prescribed. ?? Every effort has been made to ensure that the information provided by [email or web address]. [employer] is accurate, up-to-date, and complete, but no guarantee is made to that effect. Drug information contained herein may be time sensitive. [employer] information has been compiled for use by healthcare practitioners and consumers in the [place] and therefore [employer] does not warrant that uses outside of the [place] are appropriate, unless specifically indicated otherwise. [employer] drug information does not endorse drugs, diagnose patients or recommend therapy. [employer] drug information isan informational resource designed to assist licensed healthcare practitioners in caring for their p atients and/or to serve consumers viewing this service as a supplement to, and not a substitute for, the expertise, skill, knowledge and judgment of healthcare practitioners. The absence of a warningfor a given drug or drug combination in no way should be construed to indicate that the drug or drug combination is safe, effective or appropriate for any given patient. [employer] does not assume any responsibility for any aspect of healthcare administered with the aid of information [employer] provides. The information contained herein is not intended to cover all possible uses, directions, precautions, warnings, drug interactions, allergic reactions, or adverse effects. If you have questions about the drugs you are taking, check with your doctor, nurse or pharmacist.? Copyright 2470-4387 [employer]. Version: 18.. Revision Date: 05/11/2023. ?? furosemide (oral/injection)?? (fur [place] se mide) ?? Furoscix, Lasix? What is the most important information I should know about furosemide? You should not use this medicine if you are unable to urinate. ?? Using more than your recommended dose will not make this medicine more effective.??High doses of furosemide may cause irreversible hearing loss.? Tell your doctor about all your other medicines.??Some drugs should not be used with furosemide. ?? What is furosemide? Furosemide is used to treat fluid retention (edema) in people with congestive heart failure, liver disease, or a kidney disorder such as nephrotic syndrome. ? Furosemide is also used to treat high blood pressure (hypertension). ?? The??Furiosi??brand of furosemide is only used in adults. ?? Furosemide may also be used for purposes not listed in this medication guide. ?? What should I discuss with my healthcare provider before using furosemide? You should not use furosemide if you are allergic to it, if you are unable to urinate or have hepatic cirrhosis. ?? You should not use??Furiosi??if you have ascites or have allergies to medical adhesives.? Tell your doctor if you have ever had: ?an electrolyte imbalance (such as low levels of potassium or magnesium in your blood); ?enlarged prostate, bladder obstruction, or other urination problems; ?gout; ?lupus; ?diabetes;?an allergy to sulfa drugs; ?kidney disease; or ?cirrhosis or other liver disease. ?? Tell your doctor if you have an MRI (magnetic resonance imaging) or any type of scan using a radioactive dye that is injected into a vein. ??Contrast dyes and furosemide can harm your kidneys. ?? It is not known if furosemide will harm an unborn baby. Tell your doctor if you are or plan to become . ?? It may not be safe to breastfeed while using this medicine. Ask your doctor about any risk. Furosemide may slow breast milk production. ?? How should I use furosemide? Follow all directions on your prescription label and read all medication guides or instruction sheets. Use the medicine exactly as directed. ?? Furosemide??oral??is taken by mouth. Furosemide??injection??is given in a muscle, under the skin, or in a vein. A healthcare provider will give you this injection if you are unable to take the medicine by mouth. ?? Furiosi??infusion lasts about 5 hours.??Furiosi??should not get wet. Do not bathe, shower, swim or exercise while wearing the infusor. Also do not apply any products such as lotions or creams in the area where the infusor is placed. ?? It is not recommended to travel by car or airplane while using??Furiosi.??Also do not use the infusor within 12 inches of mobile phones, tablets, computers, or wireless accessories such as remote control, or Curoversetooth devices.? Do not reuse a needle, syringe or cartridge. Place them in a puncture-proof 'sharps' container and dispose of it following state or local laws. Keep out of the reach of children and pets. ?? You may receive your first dose in a hospital or clinic setting if you have severe liver disease. ?? Do not use more than your recommended dose. ??High doses of furosemide may cause irreversible hearing loss.? Measure??liquid medicine??with the supplied measuring device (not a kitchen spoon). ?? Doses are based on weight in children and teenagers. Your child's dose may change if the child gains or loses weight. ?? Furosemide will make you urinate more often and you may get dehydrated easily. ??Follow your doctor's instructions about using potassium supplements or getting enough salt and potassium in your diet. ?? Your blood pressure will need to be checked often and you may need other medical tests. ?? If you have high blood pressure,??keep using this medicine even if you feel well.?High blood pressure often has no symptoms.? If you need surgery, tell the surgeon ahead of time that you are using furosemide. ? Store at room temperature away from moisture, heat, and light. ??Throw away any unused??oral liquid??after 90 days. ?? What happens if I miss a dose? Furosemide is sometimes used only once, so you may not be on a dosing schedule. If you are using the medication regularly, use the medicine as soon as you can, but skip the missed dose if it is almost time for your next dose.??Do not??use two doses at one time.? What happens if I overdose? Seek emergency medical attention or call the Poison Help line at . ?? Overdose symptoms may include feeling very thirsty or hot, heavy sweating, hot and dry skin, extreme weakness, or fainting. ?? What should I avoid while using furosemide? Avoid getting up too fast from a sitting or lying position, or you may feel dizzy. ?? Avoid becoming dehydrated. ??Follow your doctor's instructions about the type and amount of liquidsyou should drink while you are using furosemide. ?? Drinking alcohol with this medicine can cause side effects. ?? Furosemide could make you sunburn more easily. Avoid sunlight or tanning beds. Wear protective clothing and use sunscreen (SPF 30 or higher) when you are outdoors. ?? If you have high blood pressure, ask a doctor or pharmacist before taking any medicines that can raise your blood pressure, such as diet pills or doaml-fsr-rayr medicine. ?? What are the possible side effects of furosemide? Get emergency medical help if you have??signs of an allergic reaction??(hives, difficult breathing,swelling in your face or throat)??or a severe skin reaction??(fever, sore throat, burning eyes, skin pain, red or purple skin rash with blistering and peeling). ?? Call your doctor at once if you have: ?a light-headed feeling, like you might pass out; ?ringing in your ears, hearing loss; ?muscle spasms or contractions; ?pale skin, easy bruising, unusual bleeding; ?high blood sugar--increased thirst, increased urination, dry mouth, fruity breath odor; ?kidney problems--swelling, urinating less, feeling tired or short of breath ?signs of liver or pancreas problems--loss of appetite, upper stomach pain (that may spread to your back), nausea or vomiting, dark urine, jaundice (yellowing of the skin or eyes); or ?signs of an electrolyte imbalance--increased thirst or urination, constipation, muscle weakness, leg cramps, numbness or tingling, feeling jittery, fluttering in your chest. ?? Common side effects may include: ?diarrhea, constipation, loss of appetite; ?numbness or tingling; ?headache, dizziness; or ?blurred vision. ?? This is not a complete list of side effects and others may occur. Call your doctor for medical advice about side effects. You may report side effects to FDA at 5-057-YGY-5223.? What other drugs will affect furosemide? Sometimes it is not safe to use certain medicines at the same time.??Some drugs can affect your blood levels of other drugs you use, which may increase side effects or make the medicines less effective ?? If you also take sucralfate, take your furosemide dose 2 hours before or 2 hours after you take sucralfate. ?? Tell your doctor about all your other medicines, especially: ?another diuretic, especially ethacrynic acid; ?methotrexate; ?chloral hydrate; ?lithium; ?phenytoin; ?an antibiotic;?cancer medicine, such as cisplatin;?heart or blood pressure medicine; or ?NSAIDs (nonsteroidal anti-inflammatory drugs)--aspirin, ibuprofen (Advil, Motrin), naproxen (Aleve), celecoxib, diclofenac, indomethacin, meloxicam, and others. ?? This list is not complete. ??Other drugs may affect furosemide, including prescription and cuyd-jio-psfkplj medicines, vitamins, and herbal products. ??Not all possible drug interactions are listed here. ?? Where can I get more information? Your doctor or pharmacist can provide more information about furosemide. ?? Remember, keep this and all other medicines out of the reach of children, never share your medicines with others, and use this medication only for the indication prescribed. ?? Every effort has been made to ensure that the information provided by [employer]. ('[employer]') is accurate, up-to-date, and complete, but no guarantee is made to that effect. Drug information contained herein may be time sensitive. [employer] information has been compiled for use by healthcare practitioners and consumers in the [place] and therefore [employer] does not warrant that uses outside of the [place] are appropriate, unless specifically indicated otherwise. [employer] drug information does not endorse drugs, diagnose patients or recommend therapy. [employer] drug information isan informational resource designed to assist licensed healthcare practitioners in caring for their p atients and/or to serve consumers viewing this service as a supplement to, and not a substitute for, the expertise, skill, knowledge and judgment of healthcare practitioners. The absence of a warningfor a given drug or drug combination in no way should be construed to indicate that the drug or drug combination is safe, effective or appropriate for any given patient. [facility] does not assume any responsibility for any aspect of healthcare administered with the aid of information [facility] provides. The information contained herein is not intended to cover all possible uses, directions, precautions, warnings, drug interactions, allergic reactions, or adverse effects. If you have questions about the drugs you are taking, check with your doctor, nurse or pharmacist.? Copyright [employer] [facility] Version: . Revision Date: 01/16/2023. ? Patient/Animal Care Worker Signature Patient Name:YVETTE DRAPER I have received this information and my questions have been answered. Patient/Animal Care Worker Name: Patient/Animal Care Worker Signature: Relationship to Patient: Witness Name/Signature: Date: Electronically Signed on: 10/22/2023 12:04 ESTSigned by:SO * Event Display: Discharge Instructions Physician Emergency department Note * Miguelangel Bobo MD: PERFORM Event Display: ED Note Physician Authored Date: [id number] YVETTE DRAPER :1945 Age:78 years Sex:Female Visit Date:10/21/2023 Primary Care Physician: Mally Vazquez APRN Basic Information Time Seen: Miguelangel Bobo MD / 10/21/2023 18:37 Chief Complaint pt [place] [facility] [place] for weakness and low platlets, received 3 'rounds of platelets during admission, felt ok yesterdasy worsening today here for re-eval History Of Present Illness: Patient was recently discharged from [facility]3 days ago??after she was found to have??severe thrombocytopenia and received multiple??platelet transfusions. ??She had an episode of ITP??and melanotic stools. ??She??recovered to had no further??GI bleeding??and was discharged and she was feeling well the day after discharge but then??2 days ago began to feel weak once again and that hasincreased??today where she comes in feeling weak??and feeling dehydrated. ??She denies??any chest pain shortness of breath fever chills cough abdominal pain dysuria??any diarrhea bloody stools??nausea or vomiting.?? She recently??finished radiation for breast cancer and tells me that??she does not need any further treatment for that Review of Systems: Review of systems negative other than that stated above Physical Exam Vitals & Measurements T:??36.7?C ??(Oral)?? HR:??87??(Peripheral)?? RR:??20?? BP:??135/43?? SpO2:??97%?? HT:??164??cm?? WT:??99??kg?? BMI:??36.81?? O2 Therapy:??Room air?? BSA:??2.12?? General: Alert and oriented, well nourished, no acute distress. Eye: PERRL, EOMI, normal conjunctiva. HENT: Normocephalic,??normal hearing, dry oral mucosa, no scleral icterus, . Neck: Supple, non-tender, no carotid bruits, no JVD, no lymphadenopathy. No rigidity Lungs: Clear to auscultation and percussion, slightly labored respiration. Heart: Normal rate, regular rhythm, no murmur, gallop or edema. Abdomen: Soft, non-tender, non-distended, normal bowel sounds, no masses. Musculoskeletal: Normal range of motion and strength, no tenderness or swelling. Skin: Skin is warm, dry and appropriate for ethnicity, no rashes or lesions. Neurologic: Awake, alert and oriented X4, CN II-XII intact. Psychiatric: Cooperative, appropriate mood and affect. Procedure No Qualifying Data Reexamination/Reevaluation When patient first arrived she was somewhat??tachypneic??and venous blood gas did show little bit of??respiratory alkalosis.?? She was given gentle IV hydration??and after about??only half a liter she does??state that she feels better. ??She is not as??tachypneic.?? There is no evidence of acute coronary syndrome??or obvious active infection in the??urine??or in the??chest. ??She??does not have any??evidence of??obvious acidosis??in the blood.?? Her BUN and creatinine are??within??her normal range of repeat??blood work that has been done here over the past??months to a year. ??Her D-dimer is elevated but that certainly could be from the??recent cancer??or ITP. ??She is not hypoxic not tachycardic??and there is no??chest pain or pleuritic??pain??and therefore I do not think at this time doing??CT angio which would??require contrast would be in her best interest??with her??decreased GFR. ??I did discuss this with the patient and she does not want to have a??contrast CAT scan at this time.?? I feel that??close monitoring overnight??and gentle IV hydration??is appropriate??to ensure that there is not another??etiology evolving and patient agrees. ??I spoke with the hospitalist and patient was admitted Assessment/Plan Ordered: Decision to Admit, 10/21/23 21:48:00 EST, Medical Unit Lactic Acid, Blood, RT, 10/21/23 22:52:00 EST, Once, Lab Collect Medication Reconciliation Unchanged albuterol (Albuterol (Eqv-Proventil HFA) 90 mcg/inh inhalation aerosol)1 Puffs Inhale (breathe in) every 4 hours as needed as needed for wheezing. Do not exceed 12 inhalations in a 24-hour period.. Refills: 0. ?? alendronate (alendronate 70 mg oral tablet)1 tab Oral (given by mouth) every week for 84 Days. with6-8 oz plain water, at least 30 minutes before first food, beverage, or medication of the day. Remain upright for at least 30 minutes after taking.. Refills: 1. ?? atorvastatin (atorvastatin 10 mg oral tablet)1 tab Oral (given by mouth) every evening for 90 Days.Refills: 3. ?? bifidobacterium-lactobacillus ([employer] oral capsule)8 EA, TAKE 1 CAPSULE BY MOUTH TWICE DAILY. ?? calcium-vitamin D (Calcium 600+D 600 mg-200 intl units oral tablet)28 tab. ?? Durable Medical Equipment for Prescription (Diabetic footwear)Please fit for diabetic shoes.. Refills: 0. ?? empagliflozin (Jardiance 10 mg oral tablet)1 tab Oral (given by mouth) every morning. Refills: 0. ?? famotidine (famotidine 20 mg oral tablet)46 tab. ?? folic acid (folic acid 1 mg oral tablet)1 tab Oral (given by mouth) every day. ?? furosemide (furosemide 40 mg oral tablet)1 tab Oral (given by mouth) every morning. Refills: 3. ?? gabapentin (gabapentin 100 mg oral capsule)1 Capsules Oral (given by mouth) every day for 90 Days. Refills: 3. ?? levothyroxine (levothyroxine 137 mcg (0.137 mg) oral tablet)TAKE 1 TABLET DAILY IN THE MORNING ON AN EMPTY STOMACH. Refills: 3. ?? losartan (losartan 100 mg oral tablet)1 tab Oral (given by mouth) every day. Refills: 3. ?? metoprolol (metoprolol tartrate 25 mg oral tablet)1 tab Oral (given by mouth) 2 times a day for 90 Days. Refills: 3. ?? multivitamin (multivitamin adult, oral tablet)1 tab Oral (given by mouth) every day. ?? ubiquinone (Coenzyme Q10 100 mg oral capsule)1 Capsules Oral (given by mouth) every day. Problem List/Past Medical History Ongoing Acquired hypothyroidism Altered bowel habits Amaurosis fugax Anemia of chronic disorder Anemia, hemolytic Aortic valve stenosis, mild Arthritis of right acromioclavicular joint Asthma Asthma Autoimmune hemolytic anemia, unspecified Cardiomyopathy, dilated Carotid artery aneurysm Cholecystitis, chronic Colon arteriovenous malformation Coronary artery disease Cystocele, midline Depression with anxiety Diabetes mellitus type 2 Diabetic polyneuropathy associated with type 2 diabetes mellitus Ductal carcinoma in situ (DCIS) of left breast 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 History of Hodgkin's disease History of ITP History of varicose veins of lower extremity Hyperlipidemia Hypertension Hypertriglyceridemia Hypothyroidism Idiopathic thrombocytopenia Isolation, social Lymphedema Mild stress incontinence Mitral regurgitation Mitral valve disorder Muscle cramps Neuropathy NHL - Non-Hodgkin's lymphoma Nocturnal hypoxemia Normocytic anemia Obstructive sleep apnea Osteoarthritis Peripheral vascular disease, unspecified Pharyngoesophageal dysphagia Presbylarynges Reactive depression Sleep apnea Thrombocytopenia Thrombocytopenic purpura Varicose veins of both legs with edema Vitamin D deficiency Vocal cord paralysis, unilateral complete Xerostomia Historical GERD - Gastro-esophageal reflux disease Procedure/Surgical History ???Arthroplasty Knee (Left) (08/12/2022)???Aortic valve replacement and aortoplasty (02/07/2021)???Colonoscopy (01/28/2018)???EGD - Esophagogastroduodenoscopy (01/28/2018)???Biopsy of liver (05/02/2014)???Biopsy of right lung using fluoroscopic guidance (2013)???Open heart valvuloplasty of aortic valve without replacement (2013)???EGD - Esophagogastroduodenoscopy (05/24/2010)???Colonoscopy (02/05/2000)???Bilateral tubal ligation???Lumpectomy of left breast???ALEJO BSO - Total abdominal hysterectomy and bilateral salpingo-oophorectomy Medication Administration Given Sodium Chloride 0.9%, 1000 mL, IV Sodium Chloride 0.9%, 1000 mL, IV Allergies Flomax??(Dizziness) narcotic analgesics sulfa drugs??(Rash, Hallucinations) Social History Alcohol Past Electronic Cigarette/Vaping Electronic Cigarette Use: Never. Employment/School Retired Home/Environment Lives with Alone, Son Josias stays at her house when needed. . Living situation: Home with assistance. Home equipment: Walker. Substance Use Never Tobacco Never tobacco user Tobacco Use:. Family History Breast cancer: Mother and Aunt/Uncle. Cancer: Son. Heart: Mother and Father. Diagnostic Results XR Chest 1 View 10/21/2023 19:44 EST XR Chest 1 View ?? 10/21/23 19:19:50 PROCEDURE INFORMATION: Exam: XR Chest Exam date and time: 10/21/2023 7:19 PM Age: 78 years old Clinical indication: Dyspnea ?? TECHNIQUE: Imaging protocol: Radiologic exam of the chest. Views: 1 view. ?? COMPARISON: CR XR CHEST, 2 VIEWS 09/24/2023 7:59 PM ?? FINDINGS: Lungs: Unremarkable. No consolidation. Pleural spaces: Unremarkable. No pleural effusion. No pneumothorax. Heart/Mediastinum: Stable valvuloplasty. No cardiomegaly. Bones/joints: Median sternotomy wires. ?? IMPRESSION: No acute findings. ? THIS DOCUMENT HAS BEEN ELECTRONICALLY SIGNED BY FABIAN FERGUSON MD on 10/21/2023 07:43 PM ?? Signed By: Fabian Ferguson MD ECG Sinus rhythm at 86 no obvious acute changes Diagnostic Study Interpretation: Chest x-ray negative for acute process Electronically Signed on 10/22/23 12:04 AM Miguelangel Bobo MD History and physical note * Jonathon Cox APRN: MODIFY, MODIFY, MODIFY, MODIFY, PERFORM Event Display: History and Physical Authored Date: [id number] YVETTE DRAPER :1945 Age:78 years Sex:Female Visit Date:10/21/2023 Primary Care Physician: Mally Vazquez APRN Chief Complaint pt [place] [facility] [place] for weakness and low platlets, received 3 'rounds of platelets during admission, felt ok yesterdasy worsening today here for re-eval History of Present Illness 78 yr old female with pmhx Hodgkin's disease s/p XRT, HTNN, HLD, hypothyroidism, hx of ITP, KWAKU on CPAP, severe s/p replacement ( not on blood thinner due to bleed), CAD, DCIS of left breast s/p lumpectomy on letrozole and s/p xrt, CKD st 3. She was recently discharged from [facility] 10/18 for ITP flare and melena, had platelet transfusions x3 and now platelet count normal. She was feeling weak for the last 4 days and came to the ED. She was reported to be tachypneic in the 30s with sats 97% on RA. She denied chest pain sob. She was given fluids NS and had started to normalize respiratory ratebut still feeling weak. Workup done with cxr negative for acute process, UA negative for UTI, she had ddimer of 4800, crea 1.6 and family refusing to have CTA chest due to the contrast. Pt crea baseline at 1.4 , was?? at 2.14 on admission at [facility] and back to baseline with fluids. Other labs: wbc 9.2, Hgb 9.5, Hct 28.5, plt 269, Na 137, K 4.6, BUN 40, eGFR 33, AG 10, lactic acid2.2 Mg 2.1 trop HS 12 and 12. EKG sinus with no acute changes. Pt denies fever, chills, SANCHEZ, cough, congestion, nausea, vomiting, sob, chest pain, abd pain, dysuria. Review of Systems per HPI Physical Exam Vitals & Measurements T:??36.7?C ??(Oral)?? TMIN:??36.7?C ??(Oral)?? TMAX:??36.8?C ??(Temporal Artery)?? HR:??87??(Peripheral)?? RR:??20?? BP:??135/43?? SpO2:??97%?? HT:??164??cm?? WT:??99??kg?? BMI:??36.81?? O2 Therapy:??Room air?? BSA:??2.12?? General: Alert and oriented, well nourished,?No??acute distress Eye: PERRL, EOMI,?Normal??conjunctiva HENT: Normocephalic, atraumatic Neck:?No??lymphadenopathy Lungs:??Clear??to auscultation ,?Non-labored?? respiration Heart:?Normal?? rate,?Regular??rhythm Abdomen: Soft, non-tender, non-distended,?Normal?? bowel sounds,?? Musculoskeletal:?Normal?? range of motion and strength,?No??tenderness,?No??swelling Skin: Skin is warm, dry and pink,?No??rashes,?No??lesions Neurologic: Awake, alert and oriented X4, CN II-XII intact Psychiatric: Cooperative, appropriate mood and affect Assessment/Plan 1.??Generalized weakness??R53.1 has no electrolyte imbalance no signs of infection, non focal neuro exam, could just be some dehydration where she started feeling better with fluid hydration at ED. will continue NS at 75 cc/hr 2.??NOVA (acute kidney injury)??N17.9 crea at 1.6 with baseline at 1.4. for ckd st 3 continue gentle hydration 3.??DM2 (diabetes mellitus, type 2)??E11.9 ssi aspart low dose achs 4.??KWAKU on CPAP??G47.33 pt own cpap machine being brought in by family ? DVT prophylaxis: scd ?? code status: full code Orders: glucagon, 1 mg = 1 EA, Subcutaneous, Injection, As Directed, First Dose: 10/21/23 22:33:00 EST, Physician Stop, Routine Dextrose 50% injection, 25 g = 50 mL, IV Push, Injection, As Directed, First Dose: 10/21/23 22:33:00 EST, Physician Stop, Routine insulin aspart Sliding Scale - Low Dose, Insulin Aspart Sliding Scale See Comments, Subcutaneous, Injection, AC & bedtime, First Dose: 10/22/23 7:30:00 EST, Routine Sodium Chloride 0.9% 1,000 mL, Total Volume (mL): 1,000, 1,000 mL, Soln-IV, IV, 100 mL/hr, Order Duration: 30 days, Start Date: 10/21/23 22:34:00 EST, Stop Date: 11/20/23 22:33:00 EST, 99 kg, Populate Charting Weight From Order, 2.13, m2 Basic Metabolic Panel, Blood, Timed Study, 10/22/23 5:00:00 EST, Once, Nurse collect CPAP, 10/21/23 22:38:00 EST, 12, FI02: 21, use pts own settings, family bringing her cpap machine tonight, Constant Indicator Diet Order, 10/21/23 22:32:00 EST, Consistent Carbohydrates, Na: 2 g sodium Patient Condition, 10/21/23 22:32:00 EST, Condition Guarded PSO Place in Observation, Observation, Observation, 10/21/23 22:29:00 EST, 10/21/23 22:29:00 EST, 10/21/23 22:29:00 EST, 1 midnight or less Resuscitation Status, 10/21/23 22:32:00 EST, Full Code Sequential Compression Devices (SCD's), 10/21/23 22:33:00 EST, Constant Order, 10/21/23 22:33:00 EST Vital Signs, 10/21/23 22:32:00 EST, every 4 hr (hui) Problem List/Past Medical History Ongoing Acquired hypothyroidism Altered bowel habits Amaurosis fugax Anemia of chronic disorder Anemia, hemolytic Aortic valve stenosis, mild Arthritis of right acromioclavicular joint Asthma Asthma Autoimmune hemolytic anemia, unspecified Cardiomyopathy, dilated Carotid artery aneurysm Cholecystitis, chronic Colon arteriovenous malformation Coronary artery disease Cystocele, midline Depression with anxiety Diabetes mellitus type 2 Diabetic polyneuropathy associated with type 2 diabetes mellitus Ductal carcinoma in situ (DCIS) of left breast 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 History of Hodgkin's disease History of ITP History of varicose veins of lower extremity Hyperlipidemia Hypertension Hypertriglyceridemia Hypothyroidism Idiopathic thrombocytopenia Isolation, social Lymphedema Mild stress incontinence Mitral regurgitation Mitral valve disorder Muscle cramps Neuropathy NHL - Non-Hodgkin's lymphoma Nocturnal hypoxemia Normocytic anemia Obstructive sleep apnea Osteoarthritis Peripheral vascular disease, unspecified Pharyngoesophageal dysphagia Presbylarynges Reactive depression Sleep apnea Thrombocytopenia Thrombocytopenic purpura Varicose veins of both legs with edema Vitamin D deficiency Vocal cord paralysis, unilateral complete Xerostomia Historical GERD - Gastro-esophageal reflux disease Procedure/Surgical History ???Arthroplasty Knee (Left) (08/12/2022)???Aortic valve replacement and aortoplasty (02/07/2021)???Colonoscopy (01/28/2018)???EGD - Esophagogastroduodenoscopy (01/28/2018)???Biopsy of liver (05/02/2014)???Biopsy of right lung using fluoroscopic guidance (2013)???Open heart valvuloplasty of aortic valve without replacement (2013)???EGD - Esophagogastroduodenoscopy (05/24/2010)???Colonoscopy (02/05/2000)???Bilateral tubal ligation???Lumpectomy of left breast???ALEJO BSO - Total abdominal hysterectomy and bilateral salpingo-oophorectomy Medications Inpatient Dextrose 50% injection, 25 g= 50 mL, IV Push, As Directed glucagon, 1 mg= 1 EA, Subcutaneous, As Directed insulin aspart Sliding Scale - Low Dose, Insulin Aspart Sliding Scale See Comments, Subcutaneous, AC & bedtime Sodium Chloride 0.9% 1,000 mL, 1000 mL, IV Home Albuterol (Eqv-Proventil HFA) 90 mcg/inh inhalation aerosol, 1 puffs, Inhale, every 4 hr, PRN alendronate 70 mg oral tablet, 70 mg= 1 tab, Oral, every week, 1 refills atorvastatin 10 mg oral tablet, 10 mg= 1 tab, Oral, every evening, 3 refills Calcium 600+D 600 mg-200 intl units oral tablet Coenzyme Q10 100 mg oral capsule, 100 mg= 1 cap, Oral, Daily Diabetic footwear, See instructions famotidine 20 mg oral tablet folic acid 1 mg oral tablet, 1 mg= 1 tab, Oral, Daily furosemide 40 mg oral tablet, 1 tab, Oral, every morning gabapentin 100 mg oral capsule, 100 mg= 1 cap, Oral, Daily, 3 refills Jardiance 10 mg oral tablet, 1 tab, Oral, every morning levothyroxine 137 mcg (0.137 mg) oral tablet, See Instructions, 3 refills losartan 100 mg oral tablet, 1 tab, Oral, Daily metoprolol tartrate 25 mg oral tablet, 25 mg= 1 tab, Oral, BID, 3 refills multivitamin adult, oral tablet, 1 tab, Oral, Daily Newberry Colon Health oral capsule Allergies Flomax??(Dizziness) narcotic analgesics sulfa drugs??(Rash, Hallucinations) Social History Alcohol Past Electronic Cigarette/Vaping Electronic Cigarette Use: Never. Employment/School Retired Home/Environment Lives with Alone, Son Josias stays at her house when needed. . Living situation: Home with assistance. Home equipment: Walker. Substance Use Never Tobacco Never tobacco user Tobacco Use:. Family History Breast cancer: Mother and Aunt/Uncle. Cancer: Son. Heart: Mother and Father. Immunizations Vaccine Date Status influenza virus vaccine, inactivated 08/02/2022 Recorded Comments : RD done at [facility] Lot: [id number] exp: 05/08/2023 [employer] SARS-CoV-2 mRNA (tozinameran 12y+) bival 08/02/2022 Recorded Comments : Lot: [id number] Exp: 06/08/23 LD done at [facility] Lab Results Test Name Test Result Date/Time pH Addison 7.53 pH unit(s) 10/21/2023 19:52 EST pCO2 Addison 32.0 mmHg 10/21/2023 19:52 EST HCO3 Venous 26.7 mmol/L 10/21/2023 19:52 EST CO2 Total Venous 27.7 mmol/L 10/21/2023 19:52 EST WBC 9.2 K/mcL 10/21/2023 18:38 EST RBC 3.17 Million/mcL 10/21/2023 18:38 EST Hgb 9.5 g/dL 10/21/2023 18:38 EST Hct 28.5 % 10/21/2023 18:38 EST MCV 89.7 fL 10/21/2023 18:38 EST MCH 30.0 pg 10/21/2023 18:38 EST MCHC 33.4 g/dL 10/21/2023 18:38 EST RDW-CV 14.5 % 10/21/2023 18:38 EST Platelets 269 K/mcL 10/21/2023 18:38 EST MPV 9.3 fL 10/21/2023 18:38 EST Neutro Auto 76.4 % 10/21/2023 18:38 EST Lymph Auto 13.8 % 10/21/2023 18:38 EST [place] Auto 8.6 % 10/21/2023 18:38 EST Eos, Auto 0.70 % 10/21/2023 18:38 EST Basophil Auto 0.5 % 10/21/2023 18:38 EST Neutro Absolute 7.0 K/mcL 10/21/2023 18:38 EST Lymph Absolute 1.3 K/mcL 10/21/2023 18:38 EST [place] Absolute 0.8 K/mcL 10/21/2023 18:38 EST Eos Absolute 0.1 K/mcL 10/21/2023 18:38 EST Baso Absolute 0.0 K/mcL 10/21/2023 18:38 EST D Dimer, (Quant.) 4800 ng/mL 10/21/2023 18:38 EST Sodium Level 137 mmol/L 10/21/2023 18:38 EST Potassium Level 4.6 mmol/L 10/21/2023 18:38 EST Chloride Level 103 mmol/L 10/21/2023 18:38 EST CO2 24 mmol/L 10/21/2023 18:38 EST Alk Phos 40 IntlUnit/L 10/21/2023 18:38 EST AST 31 IntlUnit/L 10/21/2023 18:38 EST ALT 21 IntlUnit/L 10/21/2023 18:38 EST BUN 40 mg/dL 10/21/2023 18:38 EST Glucose Level 154 mg/dL 10/21/2023 18:38 EST Creatinine Level 1.60 mg/dL 10/21/2023 18:38 EST BUN/Creat Ratio 25.0 10/21/2023 18:38 EST eGFR CKD-EPI 33 mL/min/1.73 m2 10/21/2023 18:38 EST Calcium Level 9.0 mg/dL 10/21/2023 18:38 EST Protein Total 7.8 g/dL 10/21/2023 18:38 EST Albumin Level 3.8 g/dL 10/21/2023 18:38 EST Globulin 4.0 g/dL 10/21/2023 18:38 EST A/G Ratio 1.0 g/dL 10/21/2023 18:38 EST Bilirubin Total 1.1 mg/dL 10/21/2023 18:38 EST Anion Gap 10.0 10/21/2023 18:38 EST Lactic Acid Lvl 2.2 mmol/L 10/21/2023 19:52 EST Magnesium Level 2.1 mg/dL 10/21/2023 18:38 EST Osmolality 287 mOsm/kg 10/21/2023 18:38 EST Troponin-I HS 12 ng/L 10/21/2023 19:58 EST Troponin-I HS 12 ng/L 10/21/2023 18:38 EST Urine Srce Clean Catch 10/21/2023 20:50 EST UA Color YELLOW. 10/21/2023 20:50 EST UA Appear CLEAR. 10/21/2023 20:50 EST UA Glucose >=1000 10/21/2023 20:50 EST UA Bili NEGATIVE 10/21/2023 20:50 EST UA Ketones NEGATIVE 10/21/2023 20:50 EST UA Spec Grav 1.010 10/21/2023 20:50 EST UA Blood TRACE 10/21/2023 20:50 EST UA pH 6.00 10/21/2023 20:50 EST UA Protein NEGATIVE 10/21/2023 20:50 EST UA Urobilinogen 0.2 10/21/2023 20:50 EST UA Nitrite NEGATIVE 10/21/2023 20:50 EST UA Leuk Est TRACE 10/21/2023 20:50 EST UA Culture Ind?. No 10/21/2023 20:50 EST UA WBC 0-3 10/21/2023 20:50 EST UA RBC 0-3 10/21/2023 20:50 EST UA Squam Epithelial 0-3 10/21/2023 20:50 EST UA Trans Epi 0-3 10/21/2023 20:50 EST UA Hyal Cast 0-3 10/21/2023 20:50 EST Electronically Signed on 10/22/23 06:20 AM Jonathon Cox APRN Discharge summary * David Flores MD: PERFORM Event Display: Discharge Summary Authored Date: [id number] YVETTE DRAPER :1945 Age:78 years Sex:Female Visit Date:10/21/2023 Primary Care Physician: Mally Vazquez APRN Hospital Course 78-year-old female with multiple medical problems including history of ITP??breast cancer??lymphoma??recent admission at [facility] with ITP flare??close acute on chronic kidney injury[place]feeling weak since leaving the hospital at [facility] 3 days prior. ??She was not having fevers chills??or any??significant symptoms. ??Her creatinine was 1.6 which is a bit above her baseline??workup here revealed normal??platelets along with??no evidence of infection.?? She was kept on gentle IV fluids at about 75 cc an hour with a creatinine of 1.2 at the time of discharge??she feels much better. ??She does have a little bit of lightheadedness with standing??though her blood pressure is 114/44??and??we will hold her Lasix for 3 days??and she will monitor her weights??and if her weight is stable off the Lasix she can resume it at only half a dose which would be 20 mg??if her weight is up trending she can resume it at normal dose which would be??40 mg 3 days.?? She declined homehealth??either nursing or physical therapy. Physical Exam Vitals & Measurements T:??36.3?C ??(Oral)?? TMIN:??36.3?C ??(Oral)?? TMAX:??36.9?C ??(Oral)?? HR:??75??(Peripheral)?? RR:??14?? BP:??114/44?? SpO2:??97%?? HT:??164??cm?? WT:??99??kg?? BMI:??36.81?? O2 Flow Rate:??2?? O2 Therapy:??Room air?? BSA:??2.12?? General:??Alert and oriented, No acute distress Eye:??PERRL, EOMI, normal conjunctiva Lungs:??Clear to auscultation and percussion, Non-labored respiration Heart:??Normal rate, Normal rhythm, No murmur, No gallop Abdomen:??Soft, non-tender, non-distended, normal bowel sounds, no masses Procedure/Surgical History ???Arthroplasty Knee (Left) (08/12/2022)???Aortic valve replacement and aortoplasty (02/07/2021)???Colonoscopy (01/28/2018)???EGD - Esophagogastroduodenoscopy (01/28/2018)???Biopsy of liver (05/02/2014)???Biopsy of right lung using fluoroscopic guidance (2013)???Open heart valvuloplasty of aortic valve without replacement (2013)???EGD - Esophagogastroduodenoscopy (05/24/2010)???Colonoscopy (02/05/2000)???Bilateral tubal ligation???Lumpectomy of left breast???ALEJO BSO - Total abdominal hysterectomy and bilateral salpingo-oophorectomy Social History Alcohol Past Electronic Cigarette/Vaping Electronic Cigarette Use: Never. Employment/School Retired Home/Environment Lives with Alone, Son oJsias stays at her house when needed. . Living situation: Home with assistance. Home equipment: Walker. Substance Use Never Tobacco Never tobacco user Tobacco Use:. Lab Results Labs??(Last four charted values) WBC ?9.2?(DEC 13) Hgb ?L??9.5?(DEC 13) Hct ?L??28.5?(DEC 13) Plt ?269?(DEC 13) Na ?140?(DEC 14)?137?(DEC 13) K ?3.7?(DEC 14)?4.6?(DEC 13) CO2 ?26?(DEC 14)?24?(DEC 13) Cr ?1.20?(DEC 14)?H??1.60?(OCT 21) BUN ?H??31?(OCT 22)?H??40?(OCT 21) Glucose Random ?H??114?(OCT 22)?H??154?(OCT 21) Diagnostic Results X-Ray: ?? XR Chest 1 View ?? 10/21/23 19:19:50 PROCEDURE INFORMATION: Exam: XR Chest Exam date and time: 10/21/2023 7:19 PM Age: 78 years old Clinical indication: Dyspnea ?? TECHNIQUE: Imaging protocol: Radiologic exam of the chest. Views: 1 view. ?? COMPARISON: CR XR CHEST, 2 VIEWS 09/24/2023 7:59 PM ?? FINDINGS: Lungs: Unremarkable. No consolidation. Pleural spaces: Unremarkable. No pleural effusion. No pneumothorax. Heart/Mediastinum: Stable valvuloplasty. No cardiomegaly. Bones/joints: Median sternotomy wires. ?? IMPRESSION: No acute findings. ? THIS DOCUMENT HAS BEEN ELECTRONICALLY SIGNED BY FABIAN FERGUSON MD on 10/21/2023 07:43 PM ?? Signed By: Marty PAREKH, Fabian Martinez Computed Tomography:?? Ultrasound:?? MRI:?? Echo:?? Nuclear Medicine:?? Mammography:? Bone Densitometry:?? Discharge Plan 1.??Generalized weakness??R53.1 Favor dehydration related as well with chronic multiple medical problems without??acute decompensation. Ordered: Discharge Patient, 10/22/23 11:56:00 EST ?? 2.??NOVA (acute kidney injury)??N17.9 Mild acute kidney injury??as described above creatinine??went from 1.6 down to 1.2??after IV fluids. ??Her baseline is around 1.2-1.4 Ordered: Discharge Patient, 10/22/23 11:56:00 EST ?? 3.??DM2 (diabetes mellitus, type 2)??E11.9 No changes Ordered: Discharge Patient, 10/22/23 11:56:00 EST ?? 4.??KWAKU on CPAP??G47.33 No changes no decompensation Ordered: Discharge Patient, 10/22/23 11:56:00 EST ?? All Diagnoses This Visit Generalized weakness NOVA (acute kidney injury) DM2 (diabetes mellitus, type 2) KWAKU on CPAP Patient Education Diabetes Mellitus and Nutrition, Adult Follow Up With When Contact Information Mally Vazquez APRN Within 1 month [address] [place] [address] [phone] Additional Instructions: Provider office will reach out with appointment. Medication Reconciliation Changed famotidine (famotidine 20 mg oral tablet)1 tab Oral (given by mouth) every day. ?? Unchanged albuterol (Albuterol (Eqv-Proventil HFA) 90 mcg/inh inhalation aerosol)1 Puffs Inhale (breathe in) every 4 hours as needed as needed for wheezing. Do not exceed 12 inhalations in a 24-hour period.. Refills: 0. ?? alendronate (alendronate 70 mg oral tablet)1 tab Oral (given by mouth) every week for 84 Days. with6-8 oz plain water, at least 30 minutes before first food, beverage, or medication of the day. Remain upright for at least 30 minutes after taking.. Refills: 1. ?? atorvastatin (atorvastatin 10 mg oral tablet)1 tab Oral (given by mouth) every evening for 90 Days.Refills: 3. ?? bifidobacterium-lactobacillus ([employer] oral capsule)8 EA, TAKE 1 CAPSULE BY MOUTH TWICE DAILY. ?? calcium-vitamin D (Calcium 600+D 600 mg-200 intl units oral tablet)1 tab Oral (given by mouth) every day. 28 tab. ?? citalopram (citalopram 20 mg oral tablet)1 tab Oral (given by mouth) every day. ?? Durable Medical Equipment for Prescription (Diabetic footwear)Please fit for diabetic shoes.. Refills: 0. ?? empagliflozin (Jardiance 10 mg oral tablet)1 tab Oral (given by mouth) every morning. Refills: 0. ?? folic acid (folic acid 1 mg oral tablet)1 tab Oral (given by mouth) every day. ?? furosemide (furosemide 40 mg oral tablet)1 tab Oral (given by mouth) every morning. Refills: 3. ?? gabapentin (gabapentin 100 mg oral capsule)1 Capsules Oral (given by mouth) every day for 90 Days. Refills: 3. ?? lansoprazole (lansoprazole 30 mg oral delayed release capsule)1 Capsules Oral (given by mouth) every day. ?? letrozole (letrozole 2.5 mg oral tablet)1 tab Oral (given by mouth) every day. ?? levothyroxine (levothyroxine 137 mcg (0.137 mg) oral tablet)TAKE 1 TABLET DAILY IN THE MORNING ON AN EMPTY STOMACH. Refills: 3. ?? losartan (losartan 100 mg oral tablet)1 tab Oral (given by mouth) every day. Refills: 3. ?? metoprolol (metoprolol tartrate 25 mg oral tablet)1 tab Oral (given by mouth) 2 times a day for 90 Days. Refills: 3. ?? multivitamin (multivitamin adult, oral tablet)1 tab Oral (given by mouth) every day. ?? ubiquinone (Coenzyme Q10 100 mg oral capsule)1 Capsules Oral (given by mouth) every day. Electronically Signed on 10/22/23 01:17 PM David Flores MD Patient Care team information Care Team Personnel Name: Sanaz Annalisa EDMOND, Position: Physician Member Role: Nurse Practitioner Address: Address: [address] [place] [address] Name: Anabel Hallman APRN Position: Physician Member Role: Nurse Practitioner Address: Address: [address] [place] [address] Name: Mally Vazquez APRN Position: Physician Member Role: Primary Care Physician Address: Address: [address] [place] [address] Name: Miguelangel Bobo MD Position: Physician Member Role: ED Physician Address: Address: [address] [place] [address] Name: Lesa Pina Position: Nurse Member Role: ED Nurse Name: Kitty Prater Position: Nurse Member Role: ED Nurse Care Team Related Persons Name: LAURA LEON
--- OUTSIDE RECORDS SUMMARY | 2024-04-25 04:07 | XMS_ITS | Continuity of Care Document ---
Author Name Unknown Organization [facility] Ambulatory Clinics Address [address] [place] [address] Care Team Providers Care Director Of Cardiopulmonary Services Name Role Phone Resmita EDMOND Mally Ronda Primary Care Physician Encounter [facility] NBR [id number] Date(s): 11/23/23 - 11/23/23 [facility] Ambulatory Clinics [address] [place] [address]- [place] Discharge Disposition: Home Allergies, Adverse Reactions, Alerts Substance Reaction Severity Status narcotic analgesics 1 Unknown Active sulfa drugs Rash Hallucinations Unknown Active Flomax Dizziness Unknown Active 1coma for 4 days . unsure what they got Assessment and Plan Future Appointments Future Scheduled Tests Laboratory* Comprehensive Metabolic Panel 09/18/23 Radiology* US Kidney Bladder 08/31/23 Immunizations Given and Recorded Vaccine Date Status Refusal Reason influenza virus vaccine, inactivated 1 08/02/22 Re corded SARS-CoV-2 mRNA (tozinameran 12y+) bival 2 08/02/22 Recorded 1Result Comment: RD done at [place] Lot: [id number] exp: 05/08/2023 [employer]i 2Result Comment: Lot: [id number] Exp: 06/08/23 LD done at [place] Medications Acidophilus 1 tab, Oral, every morning Start Date: 11/15/23 Status: Ordered Albuterol (Eqv-Proventil HFA) 90 mcg/inh inhalation aerosol 1 puffs, Inhale, every 4 hr, PRN as needed for wheezing, Do not exceed 12 inhalations in a 24-hour period., # 1 EA, 0 Refill(s), Pharmacy: [id number], 170, cm, 11/11/22 12:19:00 EST, Height/Length Dosing, 96, kg, 11/11/22 12:19:00 EST, Weight Dosing Start Date: 11/25/22 Status: Ordered alendronate 70 mg oral tablet 70 mg = 1 tab, Oral, Thursday, with 6-8 oz plain water, at least 30 minutes before first food, beverage, or medication of the day. Remain upright for at least 30 minutes after taking., # 12 tab, 1 Refill(s), Pharmacy: [facility], 170, cm, 11/11/22 12:19:00 EST, Height/Length Dosing, 96, kg, 11/11/22 12:19:00 EST, Weight Dosing Start Date: 07/21/23 Stop Date: 01/05/24 Status: Ordered atorvastatin 10 mg oral tablet 10 mg = 1 tab, Oral, every evening, # 90 tab, 3 Refill(s), Pharmacy: [facility],114.09, cm, 08/12/22 16:18:00 EDT, Height/Length Dosing, 165, kg, 08/12/22 16:18:00 EDT, Weight Dosing Start Date: 10/24/22 Stop Date: 10/19/23 Status: Ordered Calcium 600+D 600 mg-200 intl units oral tablet 1 tab, Oral, every morning, 0 Refill(s) Start Date: 04/22/23 Status: Ordered Coenzyme Q10 100 mg oral capsule 100 mg = 1 cap, Oral, every morning Start Date: 08/11/22 Status: Ordered Diabetic footwear Diabetic footwear, Please fit for diabetic shoes., Supply, See instructions, # 1 EA, 0 Refill(s) Start Date: 03/30/23 Status: Ordered docusate sodium 100 mg oral tablet 100 mg = 1 tab, Oral, BID, PRN as needed for constipation, typically takes at least after supper every evening, will take another tab in morning if needed for constipation Start Date: 11/15/23 Status: Ordered doxycycline monohydrate 100 mg oral capsule 100 mg = 1 cap, Oral, BID, # 10 cap, 0 Refill(s), Pharmacy: [facility], 165.1, cm, 11/14/23 22:52:00 EST, Height, 101.5, kg, 11/14/23 19:01:00 EST, Weight Dosing Start Date: 11/16/23 Stop Date: 11/21/23 Status: Ordered famotidine 20 mg oral tablet 20 mg = 1 tab, Oral, BID, 0 Refill(s) Start Date: 04/22/23 Status: Ordered folic acid 1 mg oral tablet 1 mg = 1 tab, Oral, every morning, 0 Refill(s) Start Date: 10/20/23 Status: Ordered furosemide 40 mg oral tablet 1 tab, Oral, every morning, # 90 tab, 3 Refill(s), Pharmacy: [facility], 165, cm, 09/24/23 19:47:00 EST, Height, 102.2, kg, 09/24/23 19:47:00 EST, Weight Dosing Start Date: 10/13/23 Status: Ordered gabapentin 100 mg oral capsule 100 mg = 1 cap, Oral, Daily, # 90 cap, 3 Refill(s), Pharmacy: [facility], 165, cm, 09/24/23 19:47:00 EST, Height, 102.2, kg, 09/24/23 19:47:00 EST, Weight Dosing Start Date: 10/13/23 Stop Date: 10/07/24 Status: Ordered HOME CPAP HOME CPAP, as directed every night, Supply, See instructions Start Date: 11/15/23 Status: Ordered HOME OXYGEN - 2 Liters HOME OXYGEN - 2 Liters, as directed every night, Supply, See instructions Start Date: 11/15/23 Status: Ordered Jardiance 10 mg oral tablet 1 tab, Oral, every morning, # 30 tab, 3 Refill(s), Pharmacy: [id number], 165.1, cm, 11/14/23 22:52:00 EST, Height, 101.5, kg, 11/14/23 19:01:00 EST, Weight Dosing Start Date: 11/23/23 Status: Ordered lansoprazole 30 mg oral delayed release capsule 30 mg = 1 cap, Oral, every morning, 30 minutes before breakfast, 0 Refill(s) Start Date: 10/22/23 Status: Ordered letrozole 2.5 mg oral tablet 2.5 mg = 1 tab, Oral, every morning, 0 Refill(s) Start Date: 10/22/23 Status: Ordered levothyroxine 137 mcg (0.137 mg) oral tablet 137 mcg = 1 tab, Oral, every morning, on an empty stomach, # 90 tab, 3 Refill(s), Pharmacy: [facility], 170, cm, 11/11/22 12:19:00 EST, Height/Length Dosing, 96, kg, 11/11/22 12:19:00 EST, Weight Dosing Start Date: 04/14/23 Status: Ordered losartan 100 mg oral tablet 1 tab, Oral, every evening, # 90 tab, 3 Refill(s), Pharmacy: [facility], 165, cm, 09/24/23 19:47:00 EST, Height, 102.2, kg, 09/24/23 19:47:00 EST, Weight Dosing Start Date: 10/01/23 Status: Ordered metoprolol tartrate 25 mg oral tablet 25 mg = 1 tab, Oral, BID, # 180 tab, 3 Refill(s), Pharmacy: [facility], 170, cm,11/11/22 12:19:00 EST, Height/Length Dosing, 96, kg, 11/11/22 12:19:00 EST, Weight Dosing Start Date: 08/25/23 Stop Date: 08/19/24 Status: Ordered Mucinex 600 mg oral tablet, extended release 1,200 mg = 2 tab, Oral, BID, # 28 tab, 0 Refill(s), Pharmacy: [facility], 165.1, cm, 11/14/23 22:52:00 EST, Height, 101.5, kg, 11/14/23 19:01:00 EST, Weight Dosing Start Date: 11/16/23 Stop Date: 11/23/23 Status: Ordered multivitamin adult, oral tablet 1 tab, Oral, every morning Start Date: 08/11/22 Status: Ordered Please provide one touch ultra test strips Please provide one touch ultra test strips, For blood glucose monitoring once daily., Supply, See instructions, # 100 EA, 3 Refill(s), Pharmacy: [facility] Start Date: 10/23/23 Status: Ordered Tessalon Perles 100 mg oral capsule 100 mg = 1 cap, Oral, TID, # 21 cap, 0 Refill(s), Pharmacy: [facility], 165.1, cm, 11/14/23 22:52:00 EST, Height, 101.5, kg, 11/14/23 19:01:00 EST, Weight Dosing Start Date: 11/16/23 Stop Date: 11/23/23 Status: Ordered Vitamin C 500 mg oral tablet 500 mg = 1 tab, Oral, Daily, PRN other (see comment), only during winter for immune support Start Date: 11/15/23 Status: Ordered Vitamin D3 1000 intl units oral tablet 25 mcg = 1 tab, Oral, every morning, 1000 units = 25 mcg Start Date: 11/15/23 Status: Ordered Problem List Condition Confirmation Course [...] aneurysm Confirmed Active Cholecystitis, chronic Confirmed Active Coronary artery disease Confirmed Active Diabetes mellitus type 2 Confirmed Active Cardiomyopathy, dilated Confirmed Active Pharyngoesophageal dysphagia Confirmed Active Dyspnea Confirmed Active Fibrosis of skin Confirmed Active Mild stress incontinence Confirmed Active History of varicose veins of lower extremity Confirmed Active Anemia, hemolytic Confirmed Active H/O adenomatous polyp of colon Confirmed Active History of Hodgkin's disease Confirmed Active History of ITP Confirmed Active Hyperlipidemia Confirmed Active Hypertension Confirmed Active Hypertriglyceridemia Confirmed Active Hypothyroidism Confirmed Active Nocturnal hypoxemia Confirmed Active Idiopathic thrombocytopenia Confirmed Active 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 Lymphedema Confirmed Active Cystocele, midline Confirmed Active Aortic valve stenosis, mild Confirmed Active Mitral regurgitation Confirmed Active Depression with anxiety Confirmed Active Neuropathy Confirmed Active NHL - Non-Hodgkin's lymphoma Confirmed Active Normocytic anemia Confirmed Active Obstructive sleep apnea Confirmed Active Osteoarthritis Confirmed Active Peripheral vascular disease, unspecified Confirmed Active Diabetic polyneuropathy associated with type 2 diabetes mellitus Confirmed Active Presbylarynges Confirmed Active Sleep apnea [...] case 2Mitral and Tricuspid 3Due to Fibroids Social History Social History Type Response Tobacco Never tobacco user T obacco Use:. 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 Prateekemiliana Richelle, 08/12/22 Non Biological Knee L Device Identifier Serial Number Lot or Batch Number Manufacturing Date Expiration Date Distinct Identification Code MRI Safety Implantable Status Assigning Authority Unknown NA [id number] Unknown 08/07/24 Unknown Unknown Active Unknown Unknown N/A [id number] 2 Unknown 06/10/32 Unknown Unknown Active Unknown Unknown NA [id number] 1 Unknown 04/01/27 Unknown Unknown Active Unknown Unknown N/A [id number] 2 Unknown 12/07/31 Unknown Unknown Active Unknown Unknown N/A [id number] 2 Unknown 12/15/26 Unknown Unknown Active Unknown Patient Care team information Care Team Personnel Name: Sanaz Fang APRN, Position: Physician Member Role: Nurse Practitioner Address: Address: [address] [place] [address] Name: Anabel Hallman APRN Position: Physician Member Role: Nurse Practitioner Address: Address: [address] [place] [address] Name: Mally Vazquez APRN Position: Physician Member Role: Primary Care Physician Address: Address: [address] [place] [address] [place] Care Team Related Persons Name: LAURA LEON
--- OUTSIDE RECORDS SUMMARY | 2024-04-25 04:07 | XMS_ITS | Continuity of Care Document ---
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 Name Role Phone Mally Vazquez APRN Primary Care Physician Encounter [facility] NBR [id number] Date(s): 02/10/24 - 02/10/24 [facility] [address] [place] [address]- Encounter Diagnosis Osteoarthritis of left glenohumeral joint(Discharge Diagnosis) - 02/10/24 Discharge Disposition: Home or Self Care Attending Physician: Sanaz Fang APRN, Referring Physician: Mally Vazquez APRN Allergies, Adverse Reactions, Alerts Substance Reaction [...] 08/02/22 Recorded 1Result Comment: RD done at [place] Lot: [id number] exp: 05/08/2023 San[employer]i 2Result Comment: Lot: [id number] Exp: 06/08/23 LD done at [facility] Medications Acidophilus 1 tab, Oral, every morning Start Date: 11/15/23 Status: Ordered Albuterol (Eqv-Proventil HFA) 90 mcg/inh inhalation aerosol 1 puffs, Inhale, every 4 hr, PRN as needed for wheezing, Do not exceed 12 inhalations in a 24-hour period., # 3 EA, 2 Refill(s), Pharmacy: [facility], 165, cm, 12/02/23 18:39:00 EST, Height, 97.2, kg, 01/06/24 10:04:00 EST, Weight Dosing Start Date: 01/06/24 Status: Ordered alendronate 70 mg oral tablet 70 mg = 1 tab, Oral, Thursday, with 6-8 oz plain water, at least 30 minutes before first food, beverage, or medication of the day. Remain upright for at least 30 minutes after taking., # 12 tab, 1 Refill(s), Pharmacy: [facility], 170, cm, 11/11/22 12:19:00 EST, Height/Length Dosing, 96, kg, 11/11/22 12:19:00 EST, Weight Dosing Start Date: 07/21/23 Stop Date: 01/05/24 Status: Ordered atorvastatin 10 mg oral tablet 10 mg = 1 tab, Oral, every evening, # 90 tab, 3 Refill(s), Pharmacy: [facility],114.09, cm, 08/12/22 16:18:00 EDT, Height/Length Dosing, 165, kg, 08/12/22 16:18:00 EDT, Weight Dosing Start Date: 10/24/22 Stop Date: 10/19/23 Status: Ordered buPROPion 150 mg/24 hours (XL) oral tablet, extended release 150 mg 1 tab, Oral, every 24 hr Start Date: 12/29/23 Status: Ordered Calcium 600+D 600 mg-200 intl [...] for constipation Start Date: 11/15/23 Status: Ordered docusate-senna 50 mg-8.6 mg oral tablet 2 tab, Oral, BID, 0 Refill(s) Start Date: 12/17/23 Status: Ordered Eliquis 5 mg oral tablet 5 mg = 1 tab, Oral, BID, # 60 tab, 0 Refill(s), Pharmacy: [id number], 165, cm, 11/24/23 16:14:00 EST, Height, 93, kg, 11/24/23 9:19:00 EST, Weight Dosing Start Date: 11/25/23 Status: Ordered famotidine 20 mg oral tablet 20 mg = 1 tab, Oral, BID, 0 Refill(s) Start Date: 04/22/23 Status: Ordered folic acid 1 mg oral tablet 1 mg = 1 tab, Oral, every morning, 0 Refill(s) Start Date: 10/20/23 Status: Ordered HOME CPAP HOME CPAP, as directed every night, Supply, See instructions Start Date: 11/15/23 Status: Ordered HOME OXYGEN - 2 Liters HOME OXYGEN - 2 Liters, as directed every night, Supply, See instructions Start Date: 11/15/23 Status: Ordered Jardiance 10 mg oral tablet 1 tab, Oral, every morning, # 30 tab, 3 Refill(s), Pharmacy: [id number], 165.1, cm, 11/14/23 22:52:00 EST, [...] stomach, # 90 tab, 3 Refill(s), Pharmacy: [facility], 170, cm, 11/11/22 12:19:00 EST, Height/Length Dosing, 96, kg, 11/11/22 12:19:00 EST, Weight Dosing Start Date: 04/14/23 Status: Ordered melatonin 3 mg oral tablet 6 mg = 2 tab, Oral, every evening, 0 Refill(s) Start Date: 12/17/23 Status: Ordered metoprolol tartrate 25 mg oral tablet 25 mg = 1 tab, Oral, BID, # 180 tab, 3 Refill(s), Pharmacy: [facility], 170, cm,11/11/22 12:19:00 EST, Height/Length Dosing, 96, kg, 11/11/22 12:19:00 EST, Weight Dosing Start Date: 08/25/23 Stop Date: 08/19/24 Status: Ordered MiraLax 17 g = 1 packets, Oral, TID, 0 Refill(s) Start Date: 12/17/23 Status: Ordered mirtazapine 7.5 mg oral tablet 15 mg = 2 tab, Oral, every night at bedtime, 0 Refill(s) Start Date: 12/17/23 Status: Ordered Mucinex 600 mg oral tablet, extended release 600 mg = 1 tab, Oral, BID, 0 Refill(s) Start Date: 12/17/23 Status: Ordered multivitamin adult, oral tablet 1 tab, Oral, every morning Start Date: 08/11/22 Status: Ordered omeprazole 20 mg oral delayed release capsule 20 mg = 1 cap, Oral, Daily, before a meal, # 30 cap, 0 Refill(s) Start Date: 12/29/23 Status: Ordered sertraline 50 mg oral tablet 50 mg = 1 tab, Oral, Daily, TAKE 1 TABLET BY MOUTH DAILY Start Date: 12/29/23 Status: Ordered Vitamin C 500 mg oral [...] acromioclavicular joint Confirmed Active Asthma Confirmed Active Autoimmune hemolytic anemia, unspecified Confirmed Active Carotid artery aneurysm Confirmed Active Cholecystitis, chronic Confirmed Active Chronic renal insufficiency Confirmed Active Coronary artery disease Confirmed Active [...] with anxiety Confirmed Active Neuropathy Confirmed Active Normocytic anemia Confirmed Active Obstructive sleep apnea Confirmed Active Osteoarthritis Confirmed Active Peripheral vascular disease, unspecified Confirmed Active Diabetic polyneuropathy associated with type 2 diabetes mellitus Confirmed Active Pulmonary embolus Confirmed Active Isolation, social Confirmed Active Vitamin D deficiency Confirmed Active [...] case 2Mitral and Tricuspid 3Due to Fibroids Vital Signs Most recent to oldest [Reference Range]: 1 Peripheral Pulse Rate [60-100 bpm] 79 bp m (02/10/24 11:11 AM) Blood Pressure [90-140/60-90 mmHg] 155/8 5mmHg *HI* (02/10/24 11:11 AM) Mean Arterial Pressure, Cuff [65-140 mmH g] 108 mmHg (02/10/24 11:11 AM) Weight 99.79 kg (02/10/24 11:11 AM) Weight Measured (lbs) 219.999 lb (02/10/24 11:11 AM) Weight Dosing 99.790 kg (02/10/24 11:11 AM) Height 165.09 cm (02/10/24 11:11 AM) Height/Length Measured (inches) 65 inch (02/10/24 11:11 AM) BSA Measured 2.14 m2 (02/10/24 11:11 AM) Body Mass Index 36.61 kg/m2 (02/10/24 11:11 AM) Social History Social History Type Response Tobacco Never tobacco user T obacco Use:. 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 Katlyn Hallman, DO 08/12/22 Non Biological Knee L Device Identifier Serial Number Lot or Batch Number Manufacturing Date Expiration Date Distinct Identification Code MRI Safety Implantable Status Assigning Authority Unknown NA [id number] Unknown 08/07/24 Unknown Unknown Active Unknown Unknown N/A [id number] 2 Unknown 06/10/32 Unknown Unknown Active Unknown Unknown NA [id number] 1 Unknown 04/01/27 Unknown Unknown Active Unknown Unknown N/A [id number] 2 Unknown 12/07/31 Unknown Unknown Active Unknown Unknown N/A [id number] 2 Unknown 12/15/26 Unknown Unknown Active Unknown Hospital Discharge Instructions Follow Up Care 02/03/2024 09:38:21 With:Return to this practice Address: When: only if needed Patient Care team information Care Team Personnel Name: Sanaz Fang APRN, Position: Physician Member Role: Nurse Practitioner Address: Address: [address] [place] [address] Name: Anabel Hallman APRN Position: Physician Member Role: Nurse Practitioner Address: Address: [address] [place] [address] Name: Mally Vazquez APRN Position: Physician Member Role: Primary Care Physician Address: Address: [address] [place] [address] [place] Care Team Related Persons Name: LAURA LEON
--- OUTSIDE RECORDS SUMMARY | 2024-04-25 04:07 | XMS_ITS | Continuity of Care Document ---
Author Name Unknown Organization [facility] Address [address] [place] [address] Care Team Providers Care Degreasing Solution Reclaimer Name Role Phone Mally Vazquez APRN Primary Care Physician [phone] Encounter LTTL_SD FIN NBR [id number] Date(s): 11/24/23 - 11/25/23 [facility] [address], [place] [id number]- us Encounter Diagnosis Pulmonary embolus(Discharge Diagnosis) - 11/24/23 Discharge Disposition: Home or Self Care Attending Physician: Omero Dewitt MD Admitting Physician: Omero Dewitt MD Referring Physician: Elliott Pacheco MD Allergies, Adverse Reactions, Alerts Substance Reaction Severity Status narcotic analgesics 1 Unknown Active sulfa drugs Rash Hallucinations Unknown Active Flomax Dizziness Unknown Active 1coma for 4 days . unsure what they got Assessment and Plan Future Appointments Future Scheduled Tests Laboratory* Comprehensive Metabolic Panel 09/18/23 Radiology* US Kidney Bladder 08/31/23 Functional Status 11/25/23 Breakfast Percent 50 11/25/23 Personal Care Provided Gown change, Partial bath, Donna care, Other: Pt states she did AM care. 11/24/23 Activity Status ADL HOB elevated 11/24/23 Living Environment No Living Environmen t Information Available Lives In Single level home Lives With Alone Living Situation Home with family car e Current Home Treatments CPAP, Oxygen therapy Home Equipment CPAP unit, Oxygen Special Services and Community Resources Meal delivery/preparation Family Member Travel History No recent t ravel Recent Travel History No recent travel Immunizations Given and Recorded Vaccine Date Status Refusal Reason influenza virus vaccine, inactivated 1 08/02/22 Re corded SARS-CoV-2 mRNA (darlene 12y+) bival 2 08/02/22 Recorded 1Result Comment: RD done at [facility] Lot: [id number] exp: 05/08/2023 [employer]i 2Result Comment: Lot: [id number] Exp: 06/08/23 LD done at [facility] Medications Acidophilus 1 tab, Oral, every morning Start Date: 11/15/23 Status: Ordered Albuterol (Eqv-Proventil HFA) 90 mcg/inh inhalation aerosol 1 puffs, Inhale, every 4 hr, PRN as needed for wheezing, Do not exceed 12 inhalations in a 24-hour period., # 1 EA, 0 Refill(s), Pharmacy: [id number], 170, cm, 11/11/22 12:19:00 EST, [...] taking., # 12 tab, 1 Refill(s), Pharmacy: [facility], 170, cm, 11/11/22 12:19:00 EST, Height/Length Dosing, 96, kg, 11/11/22 12:19:00 EST, Weight Dosing Start Date: 07/21/23 Stop Date: 01/05/24 Status: Ordered atorvastatin 10 mg oral tablet 10 mg = 1 tab, Oral, every evening, # 90 tab, 3 Refill(s), Pharmacy: [facility],114.09, cm, 08/12/22 16:18:00 EDT, Height/Length [...] for constipation Start Date: 11/15/23 Status: Ordered Eliquis 5 mg oral tablet 10 mg = 2 tab, Oral, BID, # 24 tab, 0 Refill(s), Pharmacy: [id number], 165, cm, 11/24/23 16:14:00 EST, Height, 93, kg, 11/24/23 9:19:00 EST, Weight Dosing Start Date: 11/25/23 Status: Ordered Eliquis 5 mg oral tablet 5 mg = 1 tab, Oral, BID, # 60 tab, 0 Refill(s), Pharmacy: [id number], 165, cm, 11/24/23 16:14:00 EST, [...] morning, # 90 tab, 3 Refill(s), Pharmacy: [facility], 165, cm, 09/24/23 19:47:00 EST, Height, 102.2, kg, 09/24/23 19:47:00 EST, Weight Dosing Start Date: 10/13/23 Status: Ordered gabapentin 100 mg oral capsule 100 mg = 1 cap, Oral, Daily, # 90 cap, 3 Refill(s), Pharmacy: [facility], 165, cm, 09/24/23 19:47:00 EST, [...] morning, # 30 tab, 3 Refill(s), Pharmacy: [id number], 165.1, cm, 11/14/23 22:52:00 EST, [...] stomach, # 90 tab, 3 Refill(s), Pharmacy: [facility], 170, cm, 11/11/22 12:19:00 EST, Height/Length Dosing, 96, kg, 11/11/22 12:19:00 EST, Weight Dosing Start Date: 04/14/23 Status: Ordered losartan 100 mg oral tablet 1 tab, Oral, every evening, # 90 tab, 3 Refill(s), Pharmacy: [facility], 165, cm, 09/24/23 19:47:00 EST, Height, 102.2, kg, 09/24/23 19:47:00 EST, Weight Dosing Start Date: 10/01/23 Status: Ordered metoprolol tartrate 25 mg oral tablet 25 mg = 1 tab, Oral, BID, # 180 tab, 3 Refill(s), Pharmacy: [facility], 170, cm,11/11/22 12:19:00 EST, Height/Length [...] instructions, # 100 EA, 3 Refill(s), Pharmacy: [facility] Start Date: 10/23/23 Status: Ordered Vitamin C 500 mg oral tablet 500 mg = 1 tab, Oral, Daily, PRN other (see comment), only during winter for immune support Start Date: 11/15/23 Status: Ordered Vitamin D3 1000 intl units oral tablet 25 mcg = 1 tab, Oral, every morning, 1000 units = 25 mcg Start Date: 11/15/23 Status: Ordered Mental Status 11/24/23 Eye Opening Response [place] Spontaneous ly Best Verbal Response [place] Oriented Best Motor Response [place] Obeys comman ds [place] Coma Score 15 Problem List Condition Confirmation [...] to Fibroids Results Laboratory List Name Date Automated Diff 11/25/23 CBC w/ Diff 11/25/23 Comprehensive Metabolic Panel (CMP) 11/25 Troponin-I High Sensitivity 11/24/23 Urinalysis Microscopic 11/24/23 Urinalysis with Micro if Indicated and C ulture if Indicated 11/24/23 Troponin-I High Sensitivity (High Sensit ivityTroponin-I) 11/24/23 Troponin-I High Sensitivity (High Sensit ivityTroponin-I) 11/24/23 Lactic Acid 11/24/23 Automated Diff 11/24/23 ABO/Rh Echo 11/24/23 ABSC Echo (Antibody Screen Echo) 11/24/23 BNP 11/24/23 CBC w/ Diff 11/24/23 Comprehensive Metabolic Panel (CMP) 11/24 Lipase Level 11/24/23 Magnesium Level 11/24/23 PT/ INR 11/24/23 PTT 11/24/23 Most recent to oldest [Reference Range]: 1 2 3 WBC [4.8-10.8 K/mcL] 7.9 K/mcL (11/25/23 6:34 AM) 10.6 K/mcL (11/24/23 9:15 AM) RBC [4.20-5.40 Million/mcL] 3.36 Million /mcL *LOW* (11/25/23 6:34 AM) 3.57 Million/mcL *LOW* (11/24/23 9:15 AM) Neutro Auto [42.2-75.2 %] 77.3 % *HI* (11/25/23 6:34 AM) 86.8 % *HI* (11/24/23 9:15 AM) Lymph Auto [20.5-51.1 %] 11.3 % *LOW* (11/25/23 6:34 AM) 7.0 % *LOW* (11/24/23 9:15 AM) Roberts Auto [1.7-9.3 %] 10.0 % *HI* (11/25/23 6:34 AM) 5.1 % (11/24/23 9:15 AM) Basophil Auto [0.0-0.8 %] 0.4 % (11/25/23 6:34 AM) 0.6 % (11/24/23 9:15 AM) Prothrombin Time [9.1-10.6 seconds] 10.8 seconds *HI* (11/24/23 9:15 AM) INR [0.9-1.1] 1.1 1 (11/24/23 9:15 AM) BUN [7-25 mg/dL] 38 mg/dL *HI* (11/25/23 6:34 AM) 39 mg/dL *HI* (11/24/23 9:15 AM) UA Color LIGHT YELL *NA* (11/24/23 11:43 AM) UA WBC [0-3] 25-50 *ABN* (11/24/23 11:43 AM) Glucose Level [70-109 mg/dL] 136 mg/dL *HI* (11/25/23 6:34 AM) 171 mg/dL *HI* (11/24/23 9:15 AM) Potassium Level [3.5-5.1 mmol/L] 3.8 mmol/L (11/25/23 6:34 AM) 4.0 mmol/L (11/24/23 9:15 AM) Baso Absolute [0.0-0.2 K/mcL] 0.0 K/mcL (11/25/23 6:34 AM) 0.1 K/mcL (11/24/23 9:15 AM) MCV [81.0-99.0 fL] 86.8 fL (11/25/23 6:34 AM) 87.5 fL (11/24/23 9:15 AM) UA Urobilinogen [0.2] 0.2 (11/24/23 11:43 AM) UA Hyal Cast [0-3] 0-3 (11/24/23 11:43 AM) UA Bili [Negative] Negative (11/24/23 11:43 AM) UA Ketones [Negative] Negative (11/24/23 11:43 AM) AST [13-39 IntlUnit/L] 17 IntlUnit/L (11/25/23 6:34 AM) 22 IntlUnit/L (11/24/23 9:15 AM) ALT [7-52 IntlUnit/L] 14 IntlUnit/L (11/25/23 6:34 AM) 17 IntlUnit/L (11/24/23 9:15 AM) MCHC [32.0-37.0 g/dL] 32.4 g/dL (11/25/23 6:34 AM) 31.4 g/dL *LOW* (11/24/23 9:15 AM) Osmolality [275-295 mOsm/kg] 292 mOsm/kg (11/25/23 6:34 AM) 287 mOsm/kg (11/24/23 9:15 AM) Sodium Level [136-145 mmol/L] 141 mmol/L (11/25/23 6:34 AM) 137 mmol/L (11/24/23 9:15 AM) UA RBC [0-3] 0-3 (11/24/23 11:43 AM) UA Leuk Est [Negative] Large *ABN* (11/24/23 11:43 AM) Lymph Absolute [1.2-3.4 K/mcL] 0.9 K/mcL *LOW* (11/25/23 6:34 AM) 0.7 K/mcL *LOW* (11/24/23 9:15 AM) UA Nitrite [Negative] Negative (11/24/23 11:43 AM) UA Glucose [Negative] 250 *ABN* (11/24/23 11:43 AM) Hct [37.0-47.0 %] 29.2 % *LOW* (11/25/23 6:34 AM) 31.2 % *LOW* (11/24/23 9:15 AM) UA Bacteria [None Seen] 1+ *ABN* (11/24/23 11:43 AM) Lipase Level [11-82 unit/L] 8 unit/L 2 *LOW* (11/24/23 9:15 AM) Partial Thromboplastin Time [21.3-28.4 seconds] 20.8 seconds *LOW* (11/24/23 9:15 AM) Calcium Level [8.6-10.3 mg/dL] 9.1 mg/dL (11/25/23 6:34 AM) 9.5 mg/dL (11/24/23 9:15 AM) Roberts Absolute [0.1-0.6 K/mcL] 0.8 K/mcL *HI* (11/25/23 6:34 AM) 0.5 K/mcL (11/24/23 9:15 AM) Albumin Level [3.5-5.7 g/dL] 3.3 g/dL *LOW* (11/25/23 6:34 AM) 3.6 g/dL (11/24/23 9:15 AM) Protein Total [6.4-8.9 g/dL] 6.7 g/dL (11/25/23 6:34 AM) 7.2 g/dL (11/24/23 9:15 AM) UA Protein [Negative] Negative (11/24/23 11:43 AM) MCH [27.0-31.0 pg] 28.1 pg (11/25/23 6:34 AM) 27.4 pg (11/24/23 9:15 AM) Magnesium Level [1.9-2.7 mg/dL] 2.2 mg/dL (11/24/23 9:15 AM) Neutro Absolute [1.4-6.5 K/mcL] 6.1 K/mcL (11/25/23 6:34 AM) 9.2 K/mcL *HI* (11/24/23 9:15 AM) Bilirubin Total [0.3-1.0 mg/dL] 0.5 mg/dL (11/25/23 6:34 AM) 0.7 mg/dL (11/24/23 9:15 AM) Hgb [12.0-16.0 g/dL] 9.5 g/dL *LOW* (11/25/23 6:34 AM) 9.8 g/dL *LOW* (11/24/23 9:15 AM) Alk Phos [34-104 IntlUnit/L] 70 IntlUnit /L (11/25/23 6:34 AM) 76 IntlUnit/L (11/24/23 9:15 AM) UA Blood [Negative] Trace *ABN* (11/24/23 11:43 AM) MPV [7.4-10.4 fL] 8.6 fL (11/25/23 6:34 AM) 9.4 fL (11/24/23 9:15 AM) UA Spec Grav [1.001-1.030] 1.010 (11/24/23 11:43 AM) Platelets [130-400 K/mcL] 228 K/mcL (11/25/23 6:34 AM) 247 K/mcL (11/24/23 9:15 AM) CO2 [21-31 mmol/L] 25 mmol/L (11/25/23 6:34 AM) 25 mmol/L (11/24/23 9:15 AM) Eos Absolute [0.0-0.2 K/mcL] 0.1 K/mcL (11/25/23 6:34 AM) 0.1 K/mcL (11/24/23 9:15 AM) Lactic Acid Lvl [0.5-2.2 mmol/L] 2.1 mmol/L (11/24/23 9:47 AM) UA Squam Epithelial [0-3] 0-3 (11/24/23 11:43 AM) UA pH [5.00-9.00] 5.00 (11/24/23 11:43 AM) BNP [<=100 pg/mL] 59 pg/mL (11/24/23 9:15 AM) UA Appear [Clear] Slightly Cloudy *ABN* (11/24/23 11:43 AM) Chloride Level [98-107 mmol/L] 107 mmol/L (11/25/23 6:34 AM) 102 mmol/L (11/24/23 9:15 AM) RDW-CV [11.5-14.5 %] 16.1 % *HI* (11/25/23 6:34 AM) 16.5 % *HI* (11/24/23 9:15 AM) A/G Ratio [1.0-2.5 g/dL] 1.0 g/dL (11/25/23 6:34 AM) 1.0 g/dL (11/24/23 9:15 AM) BUN/Creat Ratio [8.0-20.0] 29.2 *HI* (11/25/23 6:34 AM) 22.9 *HI* (11/24/23 9:15 AM) Globulin [2.3-3.5 g/dL] 3.4 g/dL (11/25/23 6:34 AM) 3.6 g/dL *HI* (11/24/23 9:15 AM) Slide Review Not Indicated (11/25/23 6:34 AM) Not Indicated (11/24/23 9:15 AM) UA Culture Ind?. [No] Yes (11/24/23 11:43 AM) Urine Srce Clean Catch (11/24/23 11:43 AM) Creatinine Level [0.60-1.20 mg/dL] 1.30 mg/dL *HI* (11/25/23 6:34 AM) 1.70 mg/dL *HI* (11/24/23 9:15 AM) Troponin-I HS [<=12 ng/L] 12 ng/L 3 (11/24/23 9:35 PM) 8 ng/L 4 (11/24/23 10:54 AM) 9 ng/L 5 (11/24/23 10:30 AM) ABO/Rh Echo A NEG *Unknown* (11/24/23 9:15 AM) Anion Gap [3.0-12.0] 9.0 (11/25/23 6:34 AM) 10.0 (11/24/23 9:15 AM) Eos, Auto [0.00-3.00 %] 1.00 % (11/25/23 6:34 AM) 0.50 % (11/24/23 9:15 AM) eGFR CKD-EPI [>=60 mL/min/1.73 m2] 42 mL/min/1.73 m2 *LOW* (11/25/23 6:34 AM) 30 mL/min/1.73 m2 *LOW* (11/24/23 9:15 AM) ABSC Echo Negative ABSC 6 (11/24/23 9:15 AM) 1Interpretive Data: THERAPEUTIC INR RANGES FOR WARFARIN Uncomplicated venous thromboembolic disease 2-3 Lupus Anticoagulant and recurrent thrombosis 3-3.5 Mechanical prosthetic valve or recurrent thrombosis 2.5-3.5 2Interpretive Data: B-xxrpce-t-benzoquinone imine (meabolite of Acetaminophen) will generate erroneously low lipase results in samples for patients that have taken toxic doses of acetaminophen. 3Interpretive Data: The [facility] ACCESS high-sensitivity Troponin I (hsTNI) 99 percentile cutoffs forhealthy adults are 12 ng/L or less for females and 20 ng/L or less for males. SERIAL MEASUREMENT IS HIGHLY RECOMMENDED for the diagnosis or exclusion of Acute Coronary Syndromes(ACS). Please refer to the High-Sensitivity Troponin Algorithm 202 for guidance. As with all markers of [...] Please refer to the High-Sensitivity Troponin Algorithm 2022 for guidance. As with all markers of [...] from those who do not. 5Interpretive Data: The [facility] ACCESS high-sensitivity Troponin I (hsTNI) 99 percentile cutoffs forhealthy adults are 12 ng/L or less for females and 20 ng/L or less for males. SERIAL MEASUREMENT IS HIGHLY RECOMMENDED for the diagnosis or exclusion of Acute Coronary Syndromes(ACS). Please refer to the High-Sensitivity Troponin Algorithm 2022 for guidance. As with all markers of [...] heart disease from those who do not. 6Result Comment: 11/24/2023 11:06 LHTLOGOZZO Patient has a history of panagglutinin; If transfused, recommend antigen C, E, K and Jka negative units. Notified Gayla Kaiser,RN/ED 11/24/2023 11:06:10 EST. hannah Orders for Microbiology Reports Name Date Urine Culture 11/24/23 Microbiology Reports TEST:Urine Culture STATUS:Auth (Verified) BODY SITE: SOURCE:Urine, Clean Catch COLLECTED DATE/TIME:11/24/23 11:43 AM FINAL REPORT >100,000 cfu/ml Mixed Gram Positive Shanell Mixed bacterial morphotypes present. Possible contamination. Suggest appropriate collection if clinically indicated. Radiology Reports * Exam Date Time Procedure Performing Provider Status 11/25/23 10:[address] Abdomen and Pelvi s w/ Contrast Africa Clark; Auth (Verified) Notes: (CT Abdomen and Pelvis w/ Contrast) Reason For Exam: hx hodgkins lymphoma, now presenting with PE. r/o malignancy CT Abdomen and Pelvis w/ Contrast PROCEDURE INFORMATION: Exam: CT Abdomen And Pelvis With Contrast Exam date and time: 11/25/2023 10:42 AM Age: 78 years old Clinical indication: Condition or disease; Other: HX hodgkins lymphoma; Additional info: HX hodgkins lymphoma, now presenting with pe. R/O malignancy TECHNIQUE: Imaging protocol: Computed tomography of the abdomen and pelvis with contrast. Radiation optimization: All CT scans at this facility use at least one of these dose optimization techniques: automated exposure control; mA and/or kV adjustment per patient size (includes targeted exams where dose is matched to clinical indication); or iterative reconstruction. Contrast material: ISOVUE 300; Contrast volume: 100 ml; Contrast route: INTRAVENOUS (IV); COMPARISON: 1. CT ABD/PELVIS WO CONTRAST 11/11/2022 8:[address] abdomen/pelvis with contrast 08/15/22 FINDINGS: Lungs: Chronic right lower lobe airspace disease. Liver: Fatty infiltration of the liver and stable 11 mm nodular hypodense lesion in the medial segment of the left hepatic lobe. Gallbladder and bile ducts: Cholelithiasis. No biliary ductal dilatation. Pancreas: Pancreatic atrophy and 1 mm punctate calcification in the pancreatic head. Spleen: No splenomegaly. Adrenal glands: Unremarkable adrenals. Kidneys and ureters: Stable atrophy involving the upper pole of the left kidney. Poorly characterized subcentimeter nodular hypodense lesions in the right kidney. Stomach and bowel: Mildly dilated fluid-filled stomach. Prominent stool and diverticula, without pericolonic inflammation. Appendix: No acute appendicitis. Intraperitoneal space: No significant intraperitoneal fluid. Vasculature: Prominent vascular calcification. Normal caliber of the abdominal aorta. Lymph nodes: Subcentimeter lymph nodes. Urinary bladder: Normal bladder morphology. Reproductive: Status post hysterectomy. Bones/joints: Calcified lumbar discs. Soft tissues: Small fat containing umbilical hernia. Bilateral gluteal muscle calcifications. IMPRESSION: 1. No active malignancy in the setting of previously reported Hodgkin's lymphoma. 2. Cholelithiasis. 3. Additional findings as described above. THIS DOCUMENT HAS BEEN ELECTRONICALLY SIGNED BY KADE OLIVO MD on 11/25/2023 11:09 AM Final Signed by: Kade Olivo MD Signed (Electronic Signature): 11/25/2023 11:09 am * Exam Date Time Procedure Performing Provider Status 11/24/23 10:[address] Angio Chest Isabel Torres; Auth (Verified) Notes: (CT Angio Chest) Reason For Exam: sob, hypotenstion; ? pe CT Angio Chest PROCEDURE INFORMATION: Exam: CTA Chest With Contrast Exam date and time: 11/24/2023 10:22 AM Age: 78 years old Clinical indication: Shortness of breath; Additional info: SOB, hypotenstion; ? Pe TECHNIQUE: Imaging protocol: Computed tomographic angiography of the chest with contrast. Exam focused on the arteries. 595image(s) are provided. 3D rendering (Not supervised by radiologist): MIP and/or 3D reconstructed images were created by the technologist. Radiation optimization: All CT scans at this facility use at least one of these dose optimization techniques: automated exposure control; mA and/or kV adjustment per patient size (includes targeted exams where dose is matched to clinical indication); or iterative reconstruction. Contrast material: [id number]; Contrast volume: 100 ml; Contrast route: INTRAVENOUS (IV); Other technique: Axial images are available with sagittal and coronal reconstruction views. Automated dose exposure control is utilized. The DLP is 357.5. COMPARISON: 1. CT ANGIO CHEST 08/15/2022 1:[address] CHEST WO CONTRAST 11/14/2023 7:39 PM FINDINGS: Tubes, catheters and devices: The sternal wires are aligned. Pulmonary arteries: No large interval central saddle type embolus is currently appreciated although there are some small segmental filling defects appreciated bilaterally including of the left lower lobe origin, bifurcation segment. Aorta: No interval thoracic aortic saccular aneurysmal dilatation is appreciated. Trachea: The central airways are patent. Lungs: There is some mild chronic air trapping appearance. There is some improved central and parenchymal aeration overall. There is some residual ground-glass multifocal inflammatory appearing related change including some patchy coalescence of the posterior basal segment predominantly of the right lower lobe as well as some scattered nodular coalescence. Pleural spaces: No pneumothorax or pleural effusion is appreciated. Heart: No significant pericardial fluid collection is appreciated. Mediastinal space: There is some esophageal air and secretions which could be seen with some dysmotility or reflux related sequela. Lymph nodes: There are subcentimeter predominant mediastinal and hilar lymph nodes overall present. Gallbladder and bile ducts: There is some calcified gallstone appearance demonstrated. Kidneys and ureters: There is some slight scarring and atrophic appearance of the left renal superior pole. Intraperitoneal space: There is a similar otherwise interval appearance of the included intraperitoneal space, upper abdominal structures. Bones/joints: Osseous alignment is maintained. No interval displaced fracture or dislocation is appreciated.There is slightly decreased bone mineralization overall. Soft tissues: No radiopaque foreign body or subcutaneous emphysema is appreciated. Other findings: No other significant interval changes are appreciated. IMPRESSION: 1. There are some small segmental pulmonary thromboemboli demonstrated with no large central saddle type embolus currently appreciated.The heart RV/LV ratio is 0.9. 2. There is some persistent patchy multifocal inflammatory appearance although subtly decreased suggestive of slightly improved aeration. THIS REPORT CONTAINS FINDINGS THAT MAY BE CRITICAL TO PATIENT CARE. The case was discussed via telephone conference at 10:54 AM EST on 11/24/2023 with ZIYAD SPIVEY. The findings were acknowledged and understood. THIS DOCUMENT HAS BEEN ELECTRONICALLY SIGNED BY SANDRA CONTRERAS MD on 11/24/2023 10:56 AM Final Signed by: Sandra Contreras MD Signed (Electronic Signature): 11/24/2023 10:56 am * Exam Date Time Procedure Performing Provider Status 11/24/23 9:54 AM XR Chest 2 Views DomainUser, Generated ; Auth (Verified) Notes: (XR Chest 2 Views) Reason For Exam: sob XR Chest 2 Views PROCEDURE INFORMATION: Exam: XR Chest Exam date and time: 11/24/2023 9:55 AM Age: 78 years old Clinical indication: Shortness of breath; Additional info: SOB. No history of recent trauma or surgery is provided. TECHNIQUE: Imaging protocol: Radiologic exam of the chest. 2image(s) are provided. Views: 2 views. COMPARISON: 1. CT CHEST WO CONTRAST 11/14/2023 7:39 PM 2. CR XR CHEST SINGLE VIEW 11/14/2023 7:06 PM 3. CR XR CHEST SINGLE VIEW 11/11/2023 10:47 AM FINDINGS: Tubes, catheters and devices: Sternal wires appear aligned. Lungs: There is some atelectasis versus post inflammatory reticulonodular scarring demonstrated.No lobar consolidation is appreciated. There is some mild chronic air trapping appearance overall. There is some apical scarring similar overall. There is intervally improving lung volume and central aeration as compared to the previous studies. Pleural spaces: No pneumothorax or significant pleural effusion is appreciated. Heart/Mediastinum: The cardiomediastinal silhouette is upper normal in size.This can be seen with central averaging as well as raymond enlargement. No cardiac decompensation is appreciated. There are post interventional cardiovascular and valvular type changes similar. Diaphragm: The hemidiaphragms are symmetric. Bones/joints: Osseous alignment is maintained. No interval displaced fracture or dislocation is appreciated. There is chronic advanced degeneration of the shoulder similar overall left more so than right. Soft tissues: No radiopaque foreign body or subcutaneous emphysema is appreciated. Organs: There is some calcified gallstone appearance demonstrated. Other findings: No other significant interval changes are appreciated. IMPRESSION: There is improving central aeration and lung volume appearance as compared to the previous study with decreasing inflammatory appearance. No interval lobar consolidation or cardiac decompensation is appreciated. THIS DOCUMENT HAS BEEN ELECTRONICALLY SIGNED BY SANDRA CONTRERAS MD on 11/24/2023 10:02 AM Final Signed by: Sandra Contreras MD Signed (Electronic Signature): 11/24/2023 10:02 am Vital Signs Most recent to oldest [Reference Range]: 1 2 3 Temperature Temporal Artery [36-38 Deg C] 36.6 Deg C (11/25/23 5:40 PM) 36.7 Deg C (11/25/23 3:54 PM) 36.5 Deg C (11/25/23 2:45 PM) Temperature Temporal Artery (DegF) [97.3-100 Deg F] 98.06 Deg F (11/25/23 3:54 PM) 98.6 Deg F (11/25/23 12:30 PM) 97.88 Deg F (11/25/23 5:54 AM) Peripheral Pulse Rate [60-100 bpm] 97 bpm (11/25/23 8:04 PM) 93 bpm (11/25/23 5:40 PM) 94 bpm (11/25/23 3:54 PM) Respiratory Rate [12-24 br/min] 18 br/min (11/25/23 8:04 PM) 18 br/min (11/25/23 5:40 PM) 16 br/min (11/25/23 3:54 PM) Blood Pressure [90-140/60-90 mmHg] 138/63mmHg (11/25/23 8:04 PM) 112/59mmHg (11/25/23 5:40 PM) 121/69mmHg (11/25/23 3:54 PM) Mean Arterial Pressure, Cuff [70-110 mmHg] 86 mmHg (11/25/23 3:54 PM) 80 mmHg (11/25/23 12:30 PM) 70 mmHg (11/25/23 5:54 AM) Mean Arterial Pressure Cuff 92 mmHg (11/24/23 3:30 PM) 74 mmHg (11/24/23 3:00 PM) 79 mmHg (11/24/23 2:30 PM) Weight 93 kg (11/24/23 4:14 PM) 93 kg (11/24/23 9:03 AM) Weight Dosing 93.000 kg (11/24/23 9:03 AM) Height 165 cm (11/24/23 4:14 PM) 165 cm (11/24/23 9:03 AM) Body Mass Index 34.16 kg/m2 (11/24/23 9:03 AM) Social History Social History Type Response Tobacco Never tobacco user T obacco Use:. 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 Katlyn Hallman, DO 08/12/22 Non Biological Knee L Device Identifier Serial Number Lot or Batch Number Manufacturing Date Expiration Date Distinct Identification Code MRI Safety Implantable Status Assigning Authority Unknown NA [id number] Unknown 08/07/24 Unknown Unknown Active Unknown Unknown N/A [id number] 2 Unknown 06/10/32 Unknown Unknown Active Unknown Unknown NA [id number] Unknown 04/01/27 Unknown Unknown Active Unknown Unknown N/A [id number] 2 Unknown 12/07/31 Unknown Unknown Active Unknown Unknown N/A [id number] 2 Unknown 12/15/26 Unknown Unknown Active Unknown Hospital Discharge Instructions Patient Education 11/25/2023 18:01:16 Pulmonary Embolism Pulmonary Embolism A pulmonary embolism (PE) is a sudden blockage or decrease of blood flow in one or both lungs that happens when a clot travels into the arteries of the lung (pulmonary arteries). Most blockages come from a blood clot that forms in the vein of a leg or arm (deep vein thrombosis, DVT) and travels to the lungs. A clot is blood that has thickened into a gel or solid. PE is a dangerous and life-threatening condition that needs to be treated right away. What are the causes? This condition is usually caused by a blood clot that forms in a vein and moves to the lungs. In rare cases, it may be caused by air, fat, part of a tumor, or other tissue that moves through the veins and into the lungs. What increases the risk? The following factors may make you more likely to develop this condition: ??? Experiencing a traumatic injury, such as breaking a hip or leg. ??? Having: ??? A spinal cord injury. ??? Major surgery, especially hip or knee replacement, or surgery on parts of the nervous system oron the abdomen. ??? A stroke. ??? A blood-clotting disease. ??? Long-term (chronic) lung or heart disease. ??? Cancer, especially if you are being treated with chemotherapy. ??? A central venous catheter. ??? Taking medicines that contain estrogen. These include control pills and hormone replacement therapy. ??? Being: ??? . ??? In the period of time after your baby is delivered (). ??? Older than age 60. ??? Overweight. ??? A smoker, especially if you have other risks. ??? Not very active (sedentary), not being able to move at all, or spending long periods sitting, such as travel over 6 hours. You are also at a greater risk if you have a leg in a cast or splint. What are the signs or symptoms? Symptoms of this condition usually start suddenly and include: ??? Shortness of breath during activity or at rest. ??? Coughing, coughing up blood, or coughing up bloody mucus. ??? Chest pain, back pain, or shoulder blade pain that gets worse with deep breaths. ??? Rapid or irregular heartbeat. ??? Feeling light-headed or dizzy, or fainting. ??? Feeling anxious. ??? Pain and swelling in a leg. This is a symptom of DVT, which can lead to PE. How is this diagnosed? This condition may be diagnosed based on your medical history, a physical exam, and tests. Tests may include: ??? Blood tests. ??? An ECG (electrocardiogram) of the heart. ??? A CT pulmonary angiogram. This test checks blood flow in and around your lungs. ??? A ventilation???perfusion scan, also called a lung VQ scan. This test measures air flow and blood flow to the lungs. ??? An ultrasound to check for a DVT. How is this treated? Treatment for this condition depends on many factors, such as the cause of your PE, your risk for bleeding or developing more clots, and other medical conditions you may have. Treatment aims to stop blood clots from forming or growing larger. In some cases, treatment may be aimed at breaking apart or removing the blood clot. Treatment may include: ??? Medicines, such as: ??? Blood thinning medicines, also called anticoagulants, to stop clots from forming and growing. ??? Medicines that break apart clots (fibrinolytics). ??? Procedures, such as: ??? Using a flexible tube to remove a blood clot (embolectomy) or to deliver medicine to destroy it(catheter-directed thrombolysis). ??? Surgery to remove the clot (surgical embolectomy). This is rare. You may need a combination of immediate, long-term, and extended treatments. Your treatment may continue for several months (maintenance therapy) or longer depending on your medical conditions. You and your health care provider will work together to choose the treatment program that is best for you. Follow these instructions at home: Medicines ??? Take goto-xwl-zkpulyw and prescription medicines only as told by your health care provider. ??? If you are taking blood thinners: ??? Talk with your health care provider before you take any medicines that contain aspirin or NSAIDs, such as ibuprofen. These medicines increase your risk for dangerous bleeding. ??? Take your medicine exactly as told, at the same time every day. ??? Avoid activities that could cause injury or bruising, and follow instructions about how to prevent falls. ??? Wear a medical alert bracelet or carry a card that lists what medicines you take. ??? Understand what foods and drugs interact with any medicines that you are taking. General instructions ??? Ask your health care provider when you may return to your normal activities. Avoid sitting or lying for a long time without moving. ??? Maintain a healthy weight. Ask your health care provider what weight is healthy for you. ??? Do not use any products that contain nicotine or tobacco. These products include cigarettes, chewing tobacco, and vaping devices, such as e-cigarettes. If you need help quitting, ask your health care provider. ??? Talk with your health care provider about any travel plans. It is important to make sure that you are still able to take your medicine while traveling. ??? Keep all follow-up visits. This is important. Where to find more information ??? [place] [employer]: www.lung.org ??? Centers for Disease Control and Prevention: www.cdc.gov Contact a health care provider if: ??? You missed a dose of your blood thinner medicine. ??? You have a fever. Get help right away if: ??? You have: ??? New or increased pain, swelling, warmth, or redness in an arm or leg. ??? Shortness of breath that gets worse during activity or at rest. ??? Worsening chest pain. ??? A rapid or irregular heartbeat. ??? A severe headache. ??? Vision changes. ??? A serious fall or accident, or you hit your head. ??? Blood in your vomit, stool, or urine. ??? A cut that will not stop bleeding. ??? You cough up blood. ??? You feel light-headed or dizzy, and that feeling does not go away. ??? You cannot move your arms or legs. ??? You are confused or have memory loss. These symptoms may represent a serious problem that is an emergency. Do not wait to see if the symptoms will go away. Get medical help right away. Call your local emergency services (911 in the [place] Do not drive yourself to the hospital. Summary ??? A pulmonary embolism (PE) is a serious and potentially life-threatening condition. It happens when a blood clot from one part of the body travels to the arteries of the lung, causing a sudden blockage or decrease of blood flow to the lungs. This may result in shortness of breath, chest pain, dizziness, and fainting. ??? Treatments for this condition usually include medicines to thin your blood (anticoagulants) or medicines to break apart blood clots. ??? If you are given blood thinners, take your medicine exactly as told by your health care provider, at the same time every day. This is important. ??? Understand what foods and drugs interact with any medicines that you are taking. ??? If you have signs of PE or DVT, call your local emergency services (911 in the [place] This information is not intended to replace advice given to you by your health care provider. Make sure you discuss any questions you have with your health care provider. Document Revised: 09/27/2021 Document Reviewed: 09/27/2021 [employer] Patient Education ?? 2022 [employer]. 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 The following includes patient education materials and information regarding your injury/illness. Your Next Steps Scheduled Future Appointments Thursday 11:00 AM EST ?? 2023 12:30 PM EST ?? Follow Up Appointments Follow Up with??Mally Vazquez APRN When:??Within 1 to 2 weeks Where: [address] [place] [address] [phone] The Following Services Have Been Arranged for You Special Services and Community Resources - Meal delivery/preparation The Following Treatments Have Been Arranged for You Current Home Treatments - CPAP, Oxygen therapy Medications What How Much When Why Instructions Next Dose New apixaban (Eliquis 5 mg oral tablet) 1 tab Oral (given by mouth) 2 times a day pulmonary emboli Pickup at [id number] start on day 7?? 12/02/2312/02 am New apixaban (Eliquis 5 mg oral tablet) 2 tab Oral (given by mouth) 2 times a day Pickup at [id number] 10mg?? 2x/day for 6 days,?? then decrease to 5mg 2x/day Unchanged albuterol (Albuterol (Eqv-Proventil HFA) 90 mcg/ inh inhalation aerosol) 1 Puffs Inhale (breathe in) Every 4 hours as needed for as needed for wheezing Do not exceed 12 inhalations in a 24-hour period. ?? Unchanged alendronate (alendronate 70 mg oral tablet) 1 tab Oral (given by mouth) Every Thursday Duration: 84 Days with 6-8 oz plain water, at least 30 minutes before first food, beverage, or medication of the day. Remain upright for at least 30 minutes after taking. ?? Unchanged ascorbic acid (Vitamin C 500 mg oral tablet) 1 tab Oral (given by mouth) Every day as needed for other (see comment) only during winter for immune support ?? Unchanged atorvastatin (atorvastatin 10 mg oral tablet) 1 tab Oral (given by mouth) Every evening Duration: 90 Days 11/25 pm Unchanged calcium-vitamin D (Calcium 600+D 600 mg-200 intl units oral tablet) 1 tab Oral (given by mouth) Every morning 11/26 am Unchanged cholecalciferol (Vitamin D3 1000 intl units oral tablet) 1 tab Oral (given by mouth) Every morning 1000 units = 25 mcg ?? 11/26 am Unchanged DME RESP Oxygen Therapy (HOME OXYGEN - 2 Liters) See instructions as directed every night ?? Unchanged docusate (docusate sodium 100 mg oral tablet) 1 tab Oral (given by mouth) 2 times a day as needed for as needed for constipation typically takes at least after supper every evening, will take another tab in morning if needed forconstipation ?? Unchanged Durable Medical Equipment for Prescription (Diabetic footwear) See instructions Diabetes mellitus type 2 Please fit for diabetic shoes. ?? Unchanged Durable Medical Equipment for Prescription (HOME CPAP) See instructions as directed every night ?? Unchanged empagliflozin (Jardiance 10 mg oral tablet) 1 tab Oral (given by mouth) Every morning 11/26 am Unchanged famotidine (famotidine 20 mg oral tablet) 1 tab Oral (given by mouth) 2 times a day 11/25 pm Unchanged folic acid (folic acid 1 mg oral tablet) 1 tab Oral (given by mouth) Every morning 11/26 am Unchanged furosemide (furosemide 40 mg oral tablet) 1 tab Oral (given by mouth) Every morning 11/26 am Unchanged gabapentin (gabapentin 100 mg oral capsule) 1 Capsules Oral (given by mouth) Every day Duration: 90 Days 11/26 Unchanged lactobacillus acidophilus (Acidophilus) 1 tab Oral (given by mouth) Every morning 11/26 am Unchanged lansoprazole (lansoprazole 30 mg oral delayed release capsule) 1 Capsules Oral (given by mouth) Every morning 30 minutes before breakfast ?? 11/26 am Unchanged letrozole (letrozole 2.5 mg oral tablet) 1 tab Oral (given by mouth) Every morning 11/26 am Unchanged levothyroxine (levothyroxine 137 mcg (0.137 mg) oral tablet) 1 tab Oral (given by mouth) Every morning on an empty stomach ?? 11/26 am Unchanged losartan (losartan 100 mg oral tablet) 1 tab Oral (given by mouth) Every evening 11/25 pm Unchanged metoprolol (metoprolol tartrate 25 mg oral tablet) 1 tab Oral (given by mouth) 2 times a day Duration: 90 Days 11/25 pm Unchanged multivitamin (multivitamin adult, oral tablet) 1 tab Oral (given by mouth) Every morning 1/18 am Unchanged One Touch Ultra Test Strips (Please provide one touch ultra test strips) See instructions Diabetes For blood glucose monitoring once daily. ?? 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 Dyspnea Fibrosis of skin H/O adenomatous polyp of colon History of Hodgkin's disease History of ITP History of varicose veins of lower extremity Hyperlipidemia Hypertension Hypertriglyceridemia Hypothyroidism Idiopathic thrombocytopenia Isolation, social Lymphedema Mild stress incontinence Mitral regurgitation Neuropathy NHL - Non-Hodgkin's lymphoma Nocturnal hypoxemia Normocytic anemia Obstructive sleep apnea Osteoarthritis Peripheral vascular disease, unspecified Pharyngoesophageal dysphagia Presbylarynges Sleep apnea Thrombocytopenia 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 GERD - Gastro-esophageal reflux disease Tests Performed/Pending ABO/Rh Echo Antibody Screen Echo Automated Diff BNP CBC w/ Diff CMP High SensitivityTroponin-I Lactic Acid Lipase Level Magnesium Level PT/ INR PTT Troponin-I High Sensitivity Urinalysis Microscopic Urinalysis with Micro if Indicated and Culture if Indicated CT Abdomen and Pelvis w/ Contrast CT Angio Chest XR Chest 2 Views Discharge Vitals Temperature??(Temporal Artery) 97.9 ??F (36.6 ??C) Heart Rate??(Peripheral) 93 Respiratory Rate?? 18 Blood Pressure?? 112/59?? Allergies Flomax??(Dizziness) narcotic analgesics sulfa drugs??(Rash, Hallucinations) Education Materials Pulmonary Embolism A pulmonary embolism (PE) is a sudden blockage or decrease of blood flow in one or both lungs that happens when a clot travels into the arteries of the lung (pulmonary arteries). Most blockages come from a blood clot that forms in the vein of a leg or arm (deep vein thrombosis, DVT) and travels to the lungs. A clot is blood that has thickened into a gel or solid. PE is a dangerous and life-threatening condition that needs to be treated right away. What are the causes? This condition is usually caused by a blood clot that forms in a vein and moves to the lungs. In rare cases, it may be caused by air, fat, part of a tumor, or other tissue that moves through the veins and into the lungs. What increases the risk? The following factors may make you more likely to develop this condition: ? Experiencing a traumatic injury, such as breaking a hip or leg. ? Having: ? A spinal cord injury. ? Major surgery, especially hip or knee replacement, or surgery on parts of the nervous system or on the abdomen. ? A stroke. ? A blood-clotting disease. ? Long-term (chronic) lung or heart disease. ? Cancer, especially if you are being treated with chemotherapy. ? A central venous catheter. ? Taking medicines that contain estrogen. These include control pills and hormone replacement therapy. ? Being: ? . ? In the period of time after your baby is delivered (). ? Older than age 60. ? Overweight. ? A smoker, especially if you have other risks. ? Not very active (sedentary), not being able to move at all, or spending long periods sitting, such as travel over 6 hours. You are also at a greater risk if you have a leg in a cast or splint. What are the signs or symptoms? Symptoms of this condition usually start suddenly and include: ? Shortness of breath during activity or at rest. ? Coughing, coughing up blood, or coughing up bloody mucus. ? Chest pain, back pain, or shoulder blade pain that gets worse with deep breaths. ? Rapid or irregular heartbeat. ? Feeling light-headed or dizzy, or fainting. ? Feeling anxious. ? Pain and swelling in a leg. This is a symptom of DVT, which can lead to PE. How is this diagnosed? This condition may be diagnosed based on your medical history, a physical exam, and tests. Tests may include: ? Blood tests. ? An ECG (electrocardiogram) of the heart. ? A CT pulmonary angiogram. This test checks blood flow in and around your lungs. ? A ventilation???perfusion scan, also called a lung VQ scan. This test measures air flow and blood flow to the lungs. ? An ultrasound to check for a DVT. How is this treated? Treatment for this condition depends on many factors, such as the cause of your PE, your risk for bleeding or developing more clots, and other medical conditions you may have. Treatment aims to stop blood clots from forming or growing larger. In some cases, treatment may be aimed at breaking apart or removing the blood clot. Treatment may include: ? Medicines, such as: ? Blood thinning medicines, also called anticoagulants, to stop clots from forming and growing. ? Medicines that break apart clots (fibrinolytics). ? Procedures, such as: ? Using a flexible tube to remove a blood clot (embolectomy) or to deliver medicine to destroy it (catheter-directed thrombolysis). ? Surgery to remove the clot (surgical embolectomy). This is rare. You may need a combination of immediate, long-term, and extended treatments. Your treatment may continue for several months (maintenance therapy) or longer depending on your medical conditions. You and your health care provider will work together to choose the treatment program that is best for you. Follow these instructions at home: Medicines ? Take robr-rnf-wgyegod and prescription medicines only as told by your health care provider. ? If you are taking blood thinners: ? Talk with your health care provider before you take any medicines that contain aspirin or NSAIDs, such as ibuprofen. These medicines increase your risk for dangerous bleeding. ? Take your medicine exactly as told, at the same time every day. ? Avoid activities that could cause injury or bruising, and follow instructions about how to prevent falls. ? Wear a medical alert bracelet or carry a card that lists what medicines you take. ? Understand what foods and drugs interact with any medicines that you are taking. General instructions ? Ask your health care provider when you may return to your normal activities. Avoid sitting or lyingfor a long time without moving. ? Maintain a healthy weight. Ask your health care provider what weight is healthy for you. ? Do not use any products that contain nicotine or tobacco. These products include cigarettes, chewing tobacco, and vaping devices, such as e-cigarettes. If you need help quitting, ask your health careprovider. ? Talk with your health care provider about any travel plans. It is important to make sure that you are still able to take your medicine while traveling. ? Keep all follow-up visits. This is important. Where to find more information ? [place] [employer]: www.lung.org ? Centers for Disease Control and Prevention: www.cdc.gov Contact a health care provider if: ? You missed a dose of your blood thinner medicine. ? You have a fever. Get help right away if: ? You have: ? New or increased pain, swelling, warmth, or redness in an arm or leg. ? Shortness of breath that gets worse during activity or at rest. ? Worsening chest pain. ? A rapid or irregular heartbeat. ? A severe headache. ? Vision changes. ? A serious fall or accident, or you hit your head. ? Blood in your vomit, stool, or urine. ? A cut that will not stop bleeding. ? You cough up blood. ? You feel light-headed or dizzy, and that feeling does not go away. ? You cannot move your arms or legs. ? You are confused or have memory loss. These symptoms may represent a serious problem that is an emergency. Do not wait to see if the symptoms will go away. Get medical help right away. Call your local emergency services (911 in the [place] Do not drive yourself to the hospital. Summary ? A pulmonary embolism (PE) is a serious and potentially life-threatening condition. It happens when a blood clot from one part of the body travels to the arteries of the lung, causing a sudden blockage or decrease of blood flow to the lungs. This may result in shortness of breath, chest pain, dizziness, and fainting. ? Treatments for this condition usually include medicines to thin your blood (anticoagulants) or medicines to break apart blood clots. ? If you are given blood thinners, take your medicine exactly as told by your health care provider, at the same time every day. This is important. ? Understand what foods and drugs interact with any medicines that you are taking. ? If you have signs of PE or DVT, call your local emergency services (911 in the [place] This information is not intended to replace advice given to you by your health care provider. Make sure you discuss any questions you have with your health care provider. Document Revised: 09/27/2021 Document Reviewed: 09/27/2021 [employer] Patient Education ?? 2022 [employer]. Medication Information apixaban?? (a PIX a ban) ?? Eliquis? What is the most important information I should know about apixaban? Apixaban increases your risk of severe or fatal bleeding,??especially if you take certain medicinesat the same time (including some vsnc-auk-pftwvtr medicines). ??Tell your doctor about all medicines you have recently used. ?? Call your doctor at once if you have signs of bleeding such as:?easy bruising, unusual bleeding,unexpected pain or swelling, feeling very weak or dizzy, bleeding gums, nosebleeds, heavy menstrualbleeding, blood in your urine or stools, coughing up blood or vomit that looks like coffee grounds,or any bleeding that will not stop. ?? Apixaban can cause a very serious blood clot around your spinal cord that can lead to long-term or permanent paralysis.??This type of blood clot can occur during a spinal tap or spinal anesthesia (epidural), especially if you have a genetic spinal defect, if you use a spinal catheter, if you've hadspinal surgery or repeated spinal taps, or if you use other drugs that can affect blood clotting. ? Get emergency medical help if you have??symptoms of a spinal cord blood clot??such as tingling, numbness, or muscle weakness especially in your legs and feet. ?? Do not stop taking apixaban unless your doctor tells you to. ??Stopping suddenly can increase your risk of blood clot or stroke.? What is apixaban? Apixaban is used to lower the risk of stroke caused by a blood clot in people with a heart rhythm disorder called atrial fibrillation. ? Apixaban is also used after hip or knee replacement surgery to prevent a type of blood clot called deep vein thrombosis (DVT), which can lead to blood clots in the lungs (pulmonary embolism). ? Apixaban is also used to treat DVT or pulmonary embolism (PE), and to lower your risk of having a repeat DVT or PE. ?? Apixaban may also be used for purposes not listed in this medication guide. ?? What should I discuss with my healthcare provider before taking apixaban? You should not take apixaban if you are allergic to it, or if you have active bleeding from a surgery, injury, or other cause. ?? Apixaban may cause you to bleed more easily, especially if you have a bleeding disorder that is inherited or caused by disease. ?? Tell your doctor if you have an artificial heart valve, or if you have ever had: ?bleeding problems; ?antiphospholipid syndrome, especially if you have a triple positive antibody test; or ?liver or kidney disease. ?? Apixaban can cause a very serious blood clot around your spinal cord if you undergo a spinal tap orreceive spinal anesthesia (epidural). ??This type of blood clot could cause long-term paralysis, and may be more likely to occur if:?you have a spinal catheter in place or if a catheter has been recently removed; ?you have a history of spinal surgery or repeated spinal taps; ?you have recently had a spinal tap or epidural anesthesia; ?you take aspirin or other NSAIDs (nonsteroidal anti-inflammatory drugs)--ibuprofen (Advil, Motrin), naproxen (Aleve), diclofenac, indomethacin, meloxicam, and others; or ?you are using other medicines to treat or prevent blood clots. ?? Taking apixaban may increase the risk of bleeding while you are or during your delivery. Tell your doctor if you are or plan to become . ?? Do not breastfeed. ?? How should I take apixaban? Follow all directions on your prescription label and read all medication guides or instruction sheets. Your doctor may occasionally change your dose. Use the medicine exactly as directed. ?? You may take apixaban with or without food. ?? If you cannot swallow a tablet whole,??crush it and mix with water, apple juice, or applesauce. Swallow the mixture right away without chewing.? A crushed tablet mixture may also be given through a nasogastric (NG) feeding tube.??Read and carefully follow any Instructions for Use provided with your medicine. ?? Apixaban can make it easier for you to bleed, even from a minor injury. ??Seek medical attention ifyou have bleeding that will not stop. ? Tell your doctor if you have a planned surgery or dental work.??You may need to stop taking apixaban for a short time.? Do not stop taking apixaban unless your doctor tells you to.? If you stop taking apixaban for any reason, your doctor may prescribe another medicine to prevent blood clots. ?? Store at room temperature away from moisture and heat. ?? What happens if I miss a dose? Take the missed dose on the same day you remember it. Take your next dose at the regular time and stay on your twice-daily schedule. ??Do not??take two doses at one time.? Get your prescription refilled before you run out of medicine completely. ?? What happens if I overdose? Seek emergency medical attention or call the Poison Help line at . ?? What should I avoid while taking apixaban? Avoid activities that may increase your risk of bleeding or injury. ??Use extra care while shaving or brushing your teeth. ?? What are the possible side effects of apixaban? Get emergency medical help if you have??signs of an allergic reaction: ??hives; chest pain, wheezing, difficult breathing; feeling light-headed; swelling of your face, lips, tongue, or throat. ?? Also seek emergency medical attention if you have??symptoms of a spinal blood clot??such as tingling, numbness, or muscle weakness especially in your legs and feet. ?? Call your doctor at once if you have: ?easy bruising, unusual bleeding (nose, mouth, vagina, or rectum), bleeding from wounds or needle injections, any bleeding that will not stop; ?heavy menstrual bleeding; ?headache, dizziness, weakness, feeling like you might pass out; ?urine that looks red, pink, or brown; or ?black or bloody stools, coughing up blood or vomit that looks like coffee grounds. ?? This is not a complete list of side effects and others may occur. Call your doctor for medical advice about side effects. You may report side effects to FDA at 7-034-BOV-8087. ?? What other drugs will affect apixaban? Sometimes it is not safe to use certain medications at the same time.?Some drugs can affect yourblood levels of other drugs you take, which may increase side effects or make the medications less effective. ? Many other drugs (including some vava-qzw-mxreluq medicines) can increase your risk of bleeding or blood clots.??Tell your doctor about all medicines you have recently used,??especially: ?any other medicines to treat or prevent blood clots; ?a blood thinner such as heparin or warfarin (Coumadin, Jantoven); ?an antidepressant; or ?aspirin or other NSAID (nonsteroidal anti-inflammatory drug) used rat exterminator. ?? This list is not complete and many other drugs may affect apixaban.??This includes prescription immvdzt-fri-toyutvj medicines, vitamins, and herbal products. Not all possible drug interactions are listed here. ?? Where can I get more information? Your pharmacist can provide more information about apixaban. ?? Remember, keep this and all other medicines out of the reach of children, never share your medicines with others, and use this medication only for the indication prescribed. ?? Every effort has been made to ensure that the information provided by [employer]. ('[employer]') is accurate, up-to-date, and complete, but no guarantee is made to that effect. Drug information contained herein may be time sensitive. [employer] information has been compiled for use by healthcare practitioners and consumers in the [place] and therefore [employer] does not warrant that uses outside of the [place] are appropriate, unless specifically indicated otherwise. [employer] drug information does not endorse drugs, diagnose patients or recommend therapy. [employer] drug information isan informational resource designed to [...] effective or appropriate for any given patient. [employer] does not assume any responsibility for any aspect of healthcare administered with the aid of information [employer] provides. The information contained herein is not intended to cover all possible uses, directions, precautions, warnings, drug interactions, allergic reactions, or adverse effects. If you have questions about the drugs you are taking, check with your doctor, nurse or pharmacist.? Copyright 9623-4963 [employer]. Version: 6.. Revision Date: 07/02/2021. ? Patient/Videotape Operator Signature Patient Name:YVETTE DRAPER I have received this information and my questions have been answered. Patient/Videotape Operator Name: Patient/Videotape Operator Signature: Relationship to Patient: Witness Name/Signature: Date: Electronically Signed on: 11/25/2023 20:06 ESTSigned by:SBB Physician Emergency department Note * Ziyad Spivey MD: PERFORM Event Display: ED Note Physician Authored Date: [id number] YVETTE DRAPER :1945 Age:78 years Sex:Female Visit Date:11/24/2023 Primary Care Physician: Mally Vazquez APRN Basic Information Time Seen: Ziyad Spivey MD / 11/24/2023 09:28 Chief Complaint Pt sent from GI office, c/o SOB and dizziness. History Of Present Illness: 78-year-old female presents the ER after being sent over from the GI office for shortness of breath.?? The patient states she been short of breath for several months. 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 Luo??several months ago and says she had an echo that??she was told was??normal.?? On 11/11 she was seen here and then admitted on 11/14 for shortness of breath.?? According to the notes this was felt to be due to??atypical pneumonia. ??Viral panel was negative at that time and history was treatedwith antibiotics. ??She was slightly anemic at that time??and??felt to have mild CHF exacerbation as well. ??She was discharged home on antibiotics but says she felt no better. ??She is continued to feel short of breath with any activity such as walking a few steps.?? She went to the GI office today for follow-up and was noted to be short of breath and referred here.?? The patient states she has had a mild residual cough but this has mostly cleared up.?? No chest pain, tightness, or pressure. ??No palpitations. ??She feels chronically lightheaded and dizzy??which has been ongoing for months but no significant change in this.?? No change in chronic leg swelling??or change in her weight.?? She has not noticed any black or bloody stool. Review of Systems: CONSTITUTIONAL:??No fevers or chills. EYES:??No change in vision. ENT:??No sore throat. ??No headache. ??No neck pain. CARDIOVASCULAR:??No chest pain, palpitations or passing out episodes. RESPIRATORY:??No hemoptysis. GI:??No abdominal pain. ??No nausea, vomiting or diarrhea. :??No change in urination. SKIN:??No rash. NEUROLOGIC:??No focal numbness or weakness. LYMPH:??No swelling. ?? Review of systems otherwise as stated in HPI Physical Exam Vitals & Measurements T:??36.1?C ??(Temporal Artery)?? HR:??80??(Peripheral)?? RR:??17?? BP:??99/47?? SpO2:??97%?? HT:??165??cm?? WT:??93??kg?? BMI:??34.16?? O2 Therapy:??Room air?? GENERAL:??Awake and alert. ??No acute distress. HEENT:??Normocephalic, atraumatic. ??Mucous membranes are moist. NECK:??Supple. ??Nontender. HEART:??Regular rate and rhythm. ??S1 and S2. LUNGS:??Clear to auscultation bilaterally. ??No respiratory distress. ABDOMEN:??Soft, nontender, nondistended. BACK:??Normal to inspection and nontender. EXTREMITIES: 1+??nonpitting edema bilaterally.?? Nontender. NEUROLOGIC:??Awake, alert, and oriented x3. ??Motor and sensory grossly intact. SKIN:??Warm and dry. VASCULAR:??Radial 2+ bilaterally. Medical Decision Making: Pulmonary emboli. ??The patient is afebrile nontoxic-appearing here. ??Blood pressures were on the low side here although her son says she runs low. ??She is not tachycardic or hypoxic.?? CTA was obtained which is positive for segmental PE. ??No RV strain or saddle??pulmonary emboli. ??Vital signs are stable currently and she does not meet criteria for any invasive??intervention.?? Laboratory studies are overall unremarkable with negative troponins and negative BNP??and she does not seem to have??evidence of??RV strain on CT or by laboratory studies.?? She is guaiac negative here and hemoglobin has gone up from 8-9. ??I spoke with??GI and??there has been no recent GI bleeding and they did not feel there is any contraindication to anticoagulation.?? I had initially ordered heparin but the hospitalist was comfortable with Eliquis and first dose has been ordered for anticoagulation.?? I believe she would benefit from admission??for observation to assess stability given her??complaint of s ignificant dyspnea at home??and hospitalist has accepted the patient for admission. Critical Care Time Spent 30 minutes Procedure No Qualifying Data Assessment/Plan 1.??Pulmonary embolus??I26.99 Orders: Eliquis, 10 mg = 2 tab, Oral, Tab, Once, First Dose: 11/24/23 13:00:00 EST, Stop Date: 11/24/23 13:00:00 EST, Physician Stop, Routine Sodium Chloride 0.9% 1,000 mL, Total Volume (mL): 1,000, 1,000 mL, Soln-IV, IV, 250 mL/hr, Order Duration: 30 days, Start Date: 11/24/23 12:05:00 EST, Stop Date: 12/24/23 12:04:00 EST, 93 kg, Populate Charting Weight From Order Lactic Acid, Blood, RT, 11/24/23 12:47:00 EST, Once, Lab Collect Review Orders for Potential Auths., 11/24/23 9:31:53 EST Urine Culture, U CleanCatch, Stat collect, ST - Stat, 11/24/23 9:39:00 EST, Once, Nurse collect, Collected, 11/24/23 11:43:00 EST, Print Label, [id number] Medication Reconciliation Unchanged albuterol (Albuterol (Eqv-Proventil HFA) 90 mcg/inh inhalation aerosol)1 Puffs Inhale (breathe in) every 4 hours as needed as needed for wheezing. Do not exceed 12 inhalations in a 24-hour period.. Refills: 0. ?? alendronate (alendronate 70 mg oral tablet)1 tab Oral (given by mouth) Every Thursday for 84 Days. with 6-8 oz plain water, at least 30 minutes before first food, beverage, or medication of the day. Remain upright for at least 30 minutes after taking.. Refills: 1. ?? ascorbic acid (Vitamin C 500 mg oral tablet)1 tab Oral (given by mouth) every day as needed other (see comment). only during winter for immune support. ?? atorvastatin (atorvastatin 10 mg oral tablet)1 tab Oral (given by mouth) every evening for 90 Days.Refills: 3. ?? benzonatate (Tessalon Perles 100 mg oral capsule)1 Capsules Oral (given by mouth) 3 times a day for7 Days. Refills: 0. ?? calcium-vitamin D (Calcium 600+D 600 mg-200 intl units oral tablet)1 tab Oral (given by mouth) every morning. ?? cholecalciferol (Vitamin D3 1000 intl units oral tablet)1 tab Oral (given by mouth) every morning. 1000 units = 25 mcg. ?? DME RESP Oxygen Therapy (HOME OXYGEN - 2 Liters)See instructions. as directed every night. ?? docusate (docusate sodium 100 mg oral tablet)1 tab Oral (given by mouth) 2 times a day as needed asneeded for constipation. typically takes at least after supper every evening, will take another tabin morning if needed for constipation. ?? doxycycline (doxycycline monohydrate 100 mg oral capsule)1 Capsules Oral (given by mouth) 2 times aday for 5 Days. Refills: 0. ?? Durable Medical Equipment for Prescription (Diabetic footwear)Please fit for diabetic shoes.. Refills: 0. ?? Durable Medical Equipment for Prescription (HOME CPAP)See instructions. as directed every night. ?? empagliflozin (Jardiance 10 mg oral tablet)1 tab Oral (given by mouth) every morning. Refills: 3. ?? famotidine (famotidine 20 mg oral tablet)1 tab Oral (given by mouth) 2 times a day. ?? folic acid (folic acid 1 mg oral tablet)1 tab Oral (given by mouth) every morning. ?? furosemide (furosemide 40 mg oral tablet)1 tab Oral (given by mouth) every morning. Refills: 3. ?? gabapentin (gabapentin 100 mg oral capsule)1 Capsules Oral (given by mouth) every day for 90 Days. Refills: 3. ?? guaiFENesin (Mucinex 600 mg oral tablet, extended release)2 tab Oral (given by mouth) 2 times a dayfor 7 Days. Refills: 0. ?? lactobacillus acidophilus (Acidophilus)1 tab Oral (given by mouth) every morning. ?? lansoprazole (lansoprazole 30 mg oral delayed release capsule)1 Capsules Oral (given by mouth) every morning. 30 minutes before breakfast. ?? letrozole (letrozole 2.5 mg oral tablet)1 tab Oral (given by mouth) every morning. ?? levothyroxine (levothyroxine 137 mcg (0.137 mg) oral tablet)1 tab Oral (given by mouth) every morning. on an empty stomach. Refills: 3. ?? losartan (losartan 100 mg oral tablet)1 tab Oral (given by mouth) every evening. Refills: 3. ?? metoprolol (metoprolol tartrate 25 mg oral tablet)1 tab Oral (given by mouth) 2 times a day for 90 Days. Refills: 3. ?? multivitamin (multivitamin adult, oral tablet)1 tab Oral (given by mouth) every morning. ?? One Touch Ultra Test Strips (Please provide one touch ultra test strips)For blood glucose monitoring once daily.. Refills: 3. ?? ubiquinone (Coenzyme Q10 100 mg oral capsule)1 Capsules Oral (given by mouth) every morning. 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 Dyspnea Fibrosis of skin H/O adenomatous polyp of colon History of Hodgkin's disease History of ITP History of varicose veins of lower extremity Hyperlipidemia Hypertension Hypertriglyceridemia Hypothyroidism Idiopathic thrombocytopenia Isolation, social Lymphedema Mild stress incontinence Mitral regurgitation Neuropathy NHL - Non-Hodgkin's lymphoma Nocturnal hypoxemia Normocytic anemia Obstructive sleep apnea Osteoarthritis Peripheral vascular disease, unspecified Pharyngoesophageal dysphagia Presbylarynges Sleep apnea Thrombocytopenia Thrombocytopenic purpura Varicose veins [...] Given Sodium Chloride 0.9%, 1000 mL, IV Allergies [...] Son. Heart: Mother and Father. Diagnostic Results CT Angio Chest 11/24/2023 10:56 EST XR Chest 2 Views 11/24/2023 10:[address] Angio Chest ?? 11/24/23 10:22:17 PROCEDURE INFORMATION: Exam: CTA Chest With Contrast Exam date and time: 11/24/2023 10:22 AM Age: 78 years old Clinical indication: Shortness of breath; Additional info: SOB, hypotenstion; ? Pe ?? TECHNIQUE: Imaging protocol: Computed tomographic angiography of the chest with contrast. Exam focused on the arteries. 595image(s) are provided. 3D rendering (Not supervised by radiologist): MIP and/or 3D reconstructed images were created by the technologist. Radiation optimization: All CT scans at this facility use at least one of these dose optimization techniques: automated exposure control; mA and/or kV adjustment per patient size (includes targeted exams where dose is matched to clinical indication); or iterative reconstruction. Contrast material: [id number]; Contrast volume: 100 ml; Contrast route: INTRAVENOUS (IV); Other technique: Axial images are available with sagittal and coronal reconstruction views. Automated dose exposure control is utilized. The DLP is 357.5. ?? COMPARISON: 1. CT ANGIO CHEST 08/15/2022 1:[address] CHEST WO CONTRAST 11/14/2023 7:39 PM ?? FINDINGS: Tubes, catheters and devices: The sternal wires are aligned. Pulmonary arteries: No large interval central saddle type embolus is currently appreciated although there are some small segmental filling defects appreciated bilaterally including of the left lower lobe origin, bifurcation segment. Aorta: No interval thoracic aortic saccular aneurysmal dilatation is appreciated. Trachea: The central airways are patent. Lungs: There is some mild chronic air trapping appearance. There is some improved central and parenchymal aeration overall. There is some residual ground-glass multifocal inflammatory appearing related change including some patchy coalescence of the posterior basal segment predominantly of the right lower lobe as well as some scattered nodular coalescence. Pleural spaces: No pneumothorax or pleural effusion is appreciated. Heart: No significant pericardial fluid collection is appreciated. Mediastinal space: There is some esophageal air and secretions which could be seen with some dysmotility or reflux related sequela. Lymph nodes: There are subcentimeter predominant mediastinal and hilar lymph nodes overall present. Gallbladder and bile ducts: There is some calcified gallstone appearance demonstrated. Kidneys and ureters: There is some slight scarring and atrophic appearance of the left renal superior pole. Intraperitoneal space: There is a similar otherwise interval appearance of the included intraperitoneal space, upper abdominal structures. Bones/joints: Osseous alignment is maintained. No interval displaced fracture or dislocation is appreciated.There is slightly decreased bone mineralization overall. Soft tissues: No radiopaque foreign body or subcutaneous emphysema is appreciated. Other findings: No other significant interval changes are appreciated. ?? IMPRESSION: 1. There are some small segmental pulmonary thromboemboli demonstrated with no large central saddle type embolus currently appreciated.The heart RV/LV ratio is 0.9. 2. There is some persistent patchy multifocal inflammatory appearance although subtly decreased suggestive of slightly improved aeration. ?? THIS REPORT CONTAINS FINDINGS THAT MAY BE CRITICAL TO PATIENT CARE. The case was discussed via telephone conference at 10:54 AM EST on 11/24/2023 with ZIYAD SPIVEY. The findings were acknowledged and understood. ? THIS DOCUMENT HAS BEEN ELECTRONICALLY SIGNED BY SANDRA CONTRERAS MD on 11/24/2023 10:56 AM ?? Signed By: Sandra Contreras MD ?? XR Chest 2 Views ?? 11/24/23 09:55:01 PROCEDURE INFORMATION: Exam: XR Chest Exam date and time: 11/24/2023 9:55 AM Age: 78 years old Clinical indication: Shortness of breath; Additional info: SOB. No history of recent trauma or surgery is provided. ?? TECHNIQUE: Imaging protocol: Radiologic exam of the chest. 2image(s) are provided. Views: 2 views. ?? COMPARISON: 1. CT CHEST WO CONTRAST 11/14/2023 7:39 PM 2. CR XR CHEST SINGLE VIEW 11/14/2023 7:06 PM 3. CR XR CHEST SINGLE VIEW 11/11/2023 10:47 AM ?? FINDINGS: Tubes, catheters and devices: Sternal wires appear aligned. Lungs: There is some atelectasis versus post inflammatory reticulonodular scarring demonstrated.No lobar consolidation is appreciated. There is some mild chronic air trapping appearance overall. There is some apical scarring similar overall. There is intervally improving lung volume and central aeration as compared to the previous studies. Pleural spaces: No pneumothorax or significant pleural effusion is appreciated. Heart/Mediastinum: The cardiomediastinal silhouette is upper normal in size.This can be seen with central averaging as well as raymond enlargement. No cardiac decompensation is appreciated. There are post interventional cardiovascular and valvular type changes similar. Diaphragm: The hemidiaphragms are symmetric. Bones/joints: Osseous alignment is maintained. No interval displaced fracture or dislocation is appreciated. There is chronic advanced degeneration of the shoulder similar overall left more so than right. Soft tissues: No radiopaque foreign body or subcutaneous emphysema is appreciated. Organs: There is some calcified gallstone appearance demonstrated. Other findings: No other significant interval changes are appreciated. ?? IMPRESSION: There is improving central aeration and lung volume appearance as compared to the previous study with decreasing inflammatory appearance. No interval lobar consolidation or cardiac decompensation is appreciated. ? THIS DOCUMENT HAS BEEN ELECTRONICALLY SIGNED BY SANDRA CONTRERAS MD on 11/24/2023 10:02 AM ?? Signed By: Sandra Contreras MD ECG Normal sinus rhythm at 84. 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 Lab Results CBC and Differential?? LATEST RESULTS?? HISTORICAL RESULTS?? WBC?? 11/24/23 09:15?? 10.6?? 11/16/23?? 17.3 ??High?? RBC?? 11/24/23 09:15?? 3.57 ??Low?? 11/16/23?? 2.93 ??Low?? Hgb?? 11/24/23 09:15?? 9.8 ??Low?? 11/16/23?? 8.3 ??Low?? Hct?? 11/24/23 09:15?? 31.2 ??Low?? 11/16/23?? 25.7 ??Low?? MCV?? 11/24/23 09:15?? 87.5?? 11/16/23?? 87.6?? MCH?? 11/24/23 09:15?? 27.4?? 11/16/23?? 28.1?? MCHC?? 11/24/23 09:15?? 31.4 ??Low?? 11/16/23?? 32.1?? RDW-CV?? 11/24/23 09:15?? 16.5 ??High?? 11/16/23?? 15.8 ??High?? Platelets?? 11/24/23 09:15?? 247?? 11/16/23?? 124 ??Low?? MPV?? 11/24/23 09:15?? 9.4?? 11/16/23?? 8.5?? Neutro Auto?? 11/24/23 09:15?? 86.8 ??High?? 11/11/23?? 79.3 ??High?? Lymph Auto?? 11/24/23 09:15?? 7.0 ??Low?? 11/11/23?? 8.6 ??Low?? Roberts Auto?? 11/24/23 09:15?? 5.1?? 11/11/23?? 10.7 ??High?? Eos, Auto?? 11/24/23 09:15?? 0.50?? 11/11/23?? 0.70?? Basophil Auto?? 11/24/23 09:15?? 0.6?? 11/11/23?? 0.7?? Neutro Absolute?? 11/24/23 09:15?? 9.2 ??High?? 11/11/23?? 7.3 ??High?? Lymph Absolute?? 11/24/23 09:15?? 0.7 ??Low?? 11/11/23?? 0.8 ??Low?? Roberts Absolute?? 11/24/23 09:15?? 0.5?? 11/11/23?? 1.0 ??High?? Eos Absolute?? 11/24/23 09:15?? 0.1?? 11/11/23?? 0.1?? Baso Absolute?? 11/24/23 09:15?? 0.1?? 11/11/23?? 0.1?? Slide Review?? 11/24/23 09:15?? Not Indicated?? 11/16/23?? Man Diff? Coagulation?? LATEST RESULTS?? HISTORICAL RESULTS?? Prothrombin Time?? 11/24/23 09:15?? 10.8 ??High?? 11/14/23?? 10.4?? INR?? 11/24/23 09:15?? 1.1?? 11/14/23?? 1.0?? Partial Thromboplastin Time?? 11/24/23 09:15?? 20.8 ??Low?? 11/14/22?? 34.3 ??High? Routine Chemistry?? LATEST RESULTS?? HISTORICAL RESULTS?? Sodium Level?? 11/24/23 09:15?? 137?? 11/16/23?? 140?? Potassium Level?? 11/24/23 09:15?? 4.0?? 11/16/23?? 4.6?? Chloride Level?? 11/24/23 09:15?? 102?? 11/16/23?? 106?? CO2?? 11/24/23 09:15?? 25?? 11/16/23?? 27?? Alk Phos?? 11/24/23 09:15?? 76?? 11/14/23?? 86?? AST?? 11/24/23 09:15?? 22?? 11/14/23?? 23?? ALT?? 11/24/23 09:15?? 17?? 11/14/23?? 13?? BUN?? 11/24/23 09:15?? 39 ??High?? 11/16/23?? 31 ??High?? Glucose Level?? 11/24/23 09:15?? 171 ??High?? 11/16/23?? 128 ??High?? Creatinine Level?? 11/24/23 09:15?? 1.70 ??High?? 11/16/23?? 1.30 ??High?? BUN/Creat Ratio?? 11/24/23 09:15?? 22.9 ??High?? 11/16/23?? 23.8 ??High?? eGFR CKD-EPI?? 11/24/23 09:15?? 30 ??Low?? 11/16/23?? 42 ??Low?? Calcium Level?? 11/24/23 09:15?? 9.5?? 11/16/23?? 8.3 ??Low?? Protein Total?? 11/24/23 09:15?? 7.2?? 11/14/23?? 7.4?? Albumin Level?? 11/24/23 09:15?? 3.6?? 11/14/23?? 3.5?? Globulin?? 11/24/23 09:15?? 3.6 ??High?? 11/14/23?? 3.9 ??High?? A/G Ratio?? 11/24/23 09:15?? 1.0?? 11/14/23?? 0.9 ??Low?? Bilirubin Total?? 11/24/23 09:15?? 0.7?? 11/14/23?? 0.8?? Anion Gap?? 11/24/23 09:15?? 10.0?? 11/16/23?? 7.0?? Lactic Acid Lvl?? 11/24/23 09:47?? 2.1?? 11/14/23?? 1.2?? Lipase Level?? 11/24/23 09:15?? 8 ??Low? Magnesium Level?? 11/24/23 09:15?? 2.2?? 11/14/23?? 2.5?? Osmolality?? 11/24/23 09:15?? 287?? 11/16/23?? 288? Cardiac Isoenzymes?? LATEST RESULTS?? HISTORICAL RESULTS?? BNP?? 11/24/23 09:15?? 59?? 11/14/23?? 230 ??High?? Troponin-I HS?? 11/24/23 10:54?? 8?? 11/14/23?? 14 ??High? UA Macroscopic?? LATEST RESULTS?? HISTORICAL RESULTS?? Urine Srce?? 11/24/23 11:43?? Clean Catch?? 11/14/23?? Straight Cath?? UA Color?? 11/24/23 11:43?? LIGHT YELL?? 11/14/23?? Yellow?? UA Appear?? 11/24/23 11:43?? Slightly Cloudy Abnormal?? 11/14/23?? Clear?? UA Glucose?? 11/24/23 11:43?? 250 Abnormal?? 11/14/23?? >=1000 Abnormal?? UA Bili?? 11/24/23 11:43?? Negative?? 11/14/23?? Negative?? UA Ketones?? 11/24/23 11:43?? Negative?? 11/14/23?? Negative?? UA Spec Grav?? 11/24/23 11:43?? 1.010?? 11/14/23?? 1.010?? UA Blood?? 11/24/23 11:43?? Trace Abnormal?? 11/14/23?? Trace Abnormal?? UA pH?? 11/24/23 11:43?? 5.00?? 11/14/23?? 6.00?? UA Protein?? 11/24/23 11:43?? Negative?? 11/14/23?? Negative?? UA Urobilinogen?? 11/24/23 11:43?? 0.2?? 11/14/23?? 0.2?? UA Nitrite?? 11/24/23 11:43?? Negative?? 11/14/23?? Negative?? UA Leuk Est?? 11/24/23 11:43?? Large Abnormal?? 11/14/23?? Negative?? UA Culture Ind?.?? 11/24/23 11:43?? Yes?? 11/14/23?? No? UA Microscopic?? LATEST RESULTS?? HISTORICAL RESULTS?? UA WBC?? 11/24/23 11:43?? 25-50 Abnormal?? 11/14/23?? None Seen?? UA RBC?? 11/24/23 11:43?? 0-3?? 11/14/23?? 0-3?? UA Squam Epithelial?? 11/24/23 11:43?? 0-3?? 11/14/23?? 0-3?? UA Bacteria?? 11/24/23 11:43?? 1+ Abnormal?? 11/14/23?? None Seen?? UA Hyal Cast?? 11/24/23 11:43?? 0-3?? 11/11/23?? 0-3? Transfusion Medicine Testing?? LATEST RESULTS?? ABO/Rh Echo?? 11/24/23 09:15?? A NEG?? ABSC Echo?? 11/24/23 09:15?? Negative ABSC? Electronically Signed on 11/24/23 12:50 PM Ziyad Spivey MD Nutrition and dietetics Progress note * CoutureKerry: PERFORM Event Display: Nutrition Note Authored Date: [id number] Assessment and Monitoring ? Usual Body Weight: 90skg Weight Change: some variation, overall -7kg x 1 year Skin: intact Edema: n/a Chewing/Swallowing: n/a ? Nutrition Assessment: 78 yo F admit with SOB for past 4-5 weeks. Dx: Pulmonary Embolism. started on Eliquis. PMH significant for CKD IV, T2DM, depression, CAD, HTN. HLD. Reports good appetite, no significant changes. Reports weight pretty stable, some weight fluctuation. No chewing/swallowing issues. no questions about??heart healthy diet/menu. labs noted.??no acute nutrition concerns. ??Monitoring/adjust as needed.? Nutrition Diagnosis no active Nutrition Goals POs >75% of meals labs wnl skin w/o open areas Nutrition Interventions Continue current diet diet edu. 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 Dyspnea Fibrosis of skin H/O adenomatous polyp of colon History of Hodgkin's disease History of ITP History of varicose veins of lower extremity Hyperlipidemia Hypertension Hypertriglyceridemia Hypothyroidism Idiopathic thrombocytopenia Isolation, social Lymphedema Mild stress incontinence Mitral regurgitation Neuropathy NHL - Non-Hodgkin's lymphoma Nocturnal hypoxemia Normocytic anemia Obstructive sleep apnea Osteoarthritis Peripheral vascular disease, unspecified Pharyngoesophageal dysphagia Presbylarynges Sleep apnea Thrombocytopenia Thrombocytopenic purpura Varicose veins [...] Aunt/Uncle. Cancer: Son. Heart: Mother and Father. Diet Orders Diet Order, 11/24/23 15:47:00 EST, Heart Healthy Allergies Flomax??(Dizziness) narcotic analgesics sulfa drugs??(Rash, Hallucinations) Nutrition Lab Results Test Name Test Result Date/Time WBC 7.9 K/mcL 11/25/2023 06:34 EST Hgb 9.5 g/dL 11/25/2023 06:34 EST Hct 29.2 % 11/25/2023 06:34 EST MCV 86.8 fL 11/25/2023 06:34 EST Platelets 228 K/mcL 11/25/2023 06:34 EST INR 1.1 11/24/2023 09:15 EST Partial Thromboplastin Time 20.8 seconds 11/24/2023 09:15 EST Sodium Level 141 mmol/L 11/25/2023 06:34 EST Potassium Level 3.8 mmol/L 11/25/2023 06:34 EST Chloride Level 107 mmol/L 11/25/2023 06:34 EST CO2 25 mmol/L 11/25/2023 06:34 EST Alk Phos 70 IntlUnit/L 11/25/2023 06:34 EST ALT 14 IntlUnit/L 11/25/2023 06:34 EST BUN 38 mg/dL 11/25/2023 06:34 EST Glucose Level 136 mg/dL 11/25/2023 06:34 EST Creatinine Level 1.30 mg/dL 11/25/2023 06:34 EST Albumin Level 3.3 g/dL 11/25/2023 06:34 EST Bilirubin Total 0.5 mg/dL 11/25/2023 06:34 EST Magnesium Level 2.2 mg/dL 11/24/2023 09:15 EST Medications Inpatient albuterol, 90 mcg= 1 puffs, Inhale, every 4 hr, PRN atorvastatin, 10 mg= 1 tab, Oral, every evening docusate, 100 mg= 1 cap, Oral, BID, PRN Eliquis, 10 mg= 2 tab, Oral, BID famotidine, 20 mg= 1 tab, Oral, BID furosemide, 40 mg= 1 tab, Oral, every morning gabapentin, 100 mg= 1 cap, Oral, Daily letrozole, 2.5 mg= 1 tab, Oral, every morning levothyroxine, 112 mcg= 1 tab, Oral, Daily levothyroxine, 25 mcg= 1 tab, Oral, Daily losartan, 100 mg= 2 tab, Oral, every evening Metoprolol Tartrate, 25 mg= 1 tab, Oral, BID pantoprazole, 40 mg= 1 EA, IV Push, every 12 hr (hui) Home Acidophilus, 1 tab, Oral, every morning Albuterol (Eqv-Proventil HFA) 90 mcg/inh inhalation aerosol, 1 puffs, Inhale, every 4 hr, PRN alendronate 70 mg oral tablet, 70 mg= 1 tab, Oral, Thursday, 1 refills atorvastatin 10 mg oral tablet, 10 mg= 1 tab, Oral, every evening, 3 refills Calcium 600+D 600 mg-200 intl units oral tablet, 1 tab, Oral, every morning Coenzyme Q10 100 mg oral capsule, 100 mg= 1 cap, Oral, every morning Diabetic footwear, See instructions docusate sodium 100 mg oral tablet, 100 mg= 1 tab, Oral, BID, PRN famotidine 20 mg oral tablet, 20 mg= 1 tab, Oral, BID folic acid 1 mg oral tablet, 1 mg= 1 tab, Oral, every morning furosemide 40 mg oral tablet, 1 tab, Oral, every morning gabapentin 100 mg oral capsule, 100 mg= 1 cap, Oral, Daily, 3 refills HOME CPAP, See instructions HOME OXYGEN - 2 Liters, See instructions Jardiance 10 mg oral tablet, 1 tab, Oral, every morning lansoprazole 30 mg oral delayed release capsule, 30 mg= 1 cap, Oral, every morning letrozole 2.5 mg oral tablet, 2.5 mg= 1 tab, Oral, every morning levothyroxine 137 mcg (0.137 mg) oral tablet, 137 mcg= 1 tab, Oral, every morning, 3 refills losartan 100 mg oral tablet, 1 tab, Oral, every evening metoprolol tartrate 25 mg oral tablet, 25 mg= 1 tab, Oral, BID, 3 refills multivitamin adult, oral tablet, 1 tab, Oral, every morning Please provide one touch ultra test strips, See instructions, 3 refills Vitamin C 500 mg oral tablet, 500 mg= 1 tab, Oral, Daily, PRN Vitamin D3 1000 intl units oral tablet, 25 mcg= 1 tab, Oral, every morning Electronically Signed on 11/25/23 02:48 PM Couture, Kerry History and physical note * Omero Dewitt MD: PERFORM Event Display: History and Physical Authored Date: [id number] YVETTE DRAPER :1945 Age:78 years Sex:Female Visit Date:11/24/2023 Primary Care Physician: Mally Vazquez APRN Chief Complaint shortness of breath for 4-5 weeks History of Present Illness 78-year-old female with history of CKD stage IV, iron deficiency anemia for which she is following with gastroenterology??with plan for EGD and colonoscopy, 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 ??Patient reports that for the past 1 month she has had??significant??shortness of breath and lightheadedness with??exertion. ??She reports that she cannot cross the room without stopping??to hyperventilate.?? She denies any chest pain or palpitations. ??However as shortness of breath persisted she presented??to her outpatient [facility] roenterologist who referred her to the emergency department.?? In the ED she had a CT angiography of the chest demonstrating??segmental segmental pulmonary emboli. ??Her blood pressure was 100/50.?? In the ED patient was given Eliquis 10 mg orally x 1.?? Currently??she denies any chest pain or shortness of breath at rest. ??She reports feeling improved, currently on 2 L. Review of Systems 10 point review of systems reviewed and negative Physical Exam Vitals & Measurements T:??36.7?C ??(Temporal Artery)?? TMIN:??36.1?C ??(Temporal Artery)?? TMAX:??36.7?C ??(Temporal Artery)?? HR:??86??(Peripheral)?? RR:??18?? BP:??141/59?? SpO2:??95%?? HT:??165??cm?? WT:??93??kg?? BMI:??34.16?? Pain Score:??0?? O2 Flow Rate:??2?? O2 Therapy:??Nasal cannula?? General: Alert and oriented, well nourished,?No??acute distress Psychiatric: Cooperative, appropriate mood and affect Head: Normocephalic, atraumatic Eye: Normal conjunctivae pupils equal and round ENT: Moist mucous membranes normal pharynx normal nose Lungs:??Clear to auscultation??symmetrical chest wall expansion, no use of accessory respiratory muscles Heart:??Regular rate and rhythm 2/6 DAO GI:??Soft, nontender, nondistended, positive bowel sounds. ??No appreciable organomegaly?? : No suprapubic or flank tenderness Musculoskeletal:??Moves all 4 extremities, good range of motion. ??2+ radial and pedal pulses bilaterally.?? No cyanosis or clubbing or edema Skin: Warm, dry, intact. ??No rash Assessment/Plan 1.??Pulmonary embolus??I26.99 Started on Eliquis 10 mg x 1 in the emergency department which we will continue. ??Will trend troponin, obtain echocardiogram in the morning.?? Patient had CT of the chest??which did not demonstrate any malignancy. ??However patient has history of Hodgkin's lymphoma??and history of breast mass requiring??20 radiation treatments. ??Will obtain CT abdomen pelvis to rule out underlying malignancy.??Continue patient on 7-day course of Eliquis 10 mg p.o. twice daily??followed by Eliquis 5 mg p.o. twice daily. Orders: Eliquis, 10 mg = 2 tab, Oral, Tab, BID for 7 days, First Dose: 11/24/23 23:00:00 EST, Stop Date: 12/01/23 20:59:00 EST, Physician Stop, Routine CBC w/ Diff, Blood, Routine, 11/24/23 15:49:00 EST, every morning, for 10 days, Lab Collect Comprehensive Metabolic Panel, Blood, Routine, 11/24/23 15:49:00 EST, every morning, for 10 days, Lab Collect CT Abdomen and Pelvis w/ Contrast, 11/24/23 21:11:00 EST, Routine, Reason: hx hodgkins lymphoma, now presenting with PE. r/o malignancy, Transport Mode: Wheelchair Diet Order, 11/24/23 15:47:00 EST, Heart Healthy Echo Transthoracic TTE, 11/24/23 21:11:00 EST, Routine, Pulmonary Embolism/Infarction, Stop date 11/24/23 21:11:00 EST Patient Condition, 11/24/23 15:47:00 EST, Condition Good/ Stable PSO Place in Observation, Observation, Observation, 11/24/23 15:38:00 EST, 11/24/23 15:38:00 EST, 11/24/23 15:38:00 EST, 1 midnight or less Resuscitation Status, 11/24/23 15:47:00 EST, Full Code Troponin-I High Sensitivity, Blood, Routine, 11/24/23 21:12:00 EST, Once, Lab Collect Vital Signs, 11/24/23 15:47:00 EST, every 4 hr (hui) History of CAD, diabetes mellitus type 2,??dyslipidemia, obstructive sleep apnea.?? Continue patient's??cardiac medications, sliding scale insulin,??CPAP. 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 Dyspnea Fibrosis of skin H/O adenomatous polyp of colon History of Hodgkin's disease History of ITP History of varicose veins of lower extremity Hyperlipidemia Hypertension Hypertriglyceridemia Hypothyroidism Idiopathic thrombocytopenia Isolation, social Lymphedema Mild stress incontinence Mitral regurgitation Neuropathy NHL - Non-Hodgkin's lymphoma Nocturnal hypoxemia Normocytic anemia Obstructive sleep apnea Osteoarthritis Peripheral vascular disease, unspecified Pharyngoesophageal dysphagia Presbylarynges Sleep apnea Thrombocytopenia Thrombocytopenic purpura Varicose veins [...] abdominal hysterectomy and bilateral salpingo-oophorectomy Medications Inpatient Eliquis, 10 mg= 2 tab, Oral, BID Home Acidophilus, 1 tab, Oral, every morning Albuterol (Eqv-Proventil HFA) 90 mcg/inh inhalation aerosol, 1 puffs, Inhale, every 4 hr, PRN alendronate 70 mg oral tablet, 70 mg= 1 tab, Oral, Thursday, 1 refills atorvastatin 10 mg oral tablet, 10 mg= 1 tab, Oral, every evening, 3 refills Calcium 600+D 600 mg-200 intl units oral tablet, 1 tab, Oral, every morning Coenzyme Q10 100 mg oral capsule, 100 mg= 1 cap, Oral, every morning Diabetic footwear, See instructions docusate sodium 100 mg oral tablet, 100 mg= 1 tab, Oral, BID, PRN famotidine 20 mg oral tablet, 20 mg= 1 tab, Oral, BID folic acid 1 mg oral tablet, 1 mg= 1 tab, Oral, every morning furosemide 40 mg oral tablet, 1 tab, Oral, every morning gabapentin 100 mg oral capsule, 100 mg= 1 cap, Oral, Daily, 3 refills HOME CPAP, See instructions HOME OXYGEN - 2 Liters, See instructions Jardiance 10 mg oral tablet, 1 tab, Oral, every morning lansoprazole 30 mg oral delayed release capsule, 30 mg= 1 cap, Oral, every morning letrozole 2.5 mg oral tablet, 2.5 mg= 1 tab, Oral, every morning levothyroxine 137 mcg (0.137 mg) oral tablet, 137 mcg= 1 tab, Oral, every morning, 3 refills losartan 100 mg oral tablet, 1 tab, Oral, every evening metoprolol tartrate 25 mg oral tablet, 25 mg= 1 tab, Oral, BID, 3 refills multivitamin adult, oral tablet, 1 tab, Oral, every morning Please provide one touch ultra test strips, See instructions, 3 refills Vitamin C 500 mg oral tablet, 500 mg= 1 tab, Oral, Daily, PRN Vitamin D3 1000 intl units oral tablet, 25 mcg= 1 tab, Oral, every morning Allergies Flomax??(Dizziness) narcotic analgesics sulfa drugs??(Rash, Hallucinations) [...] 08/02/2022 Recorded Comments : RD done at [facility] Lot: [id number] exp: 05/08/2023 [employer] SARS-CoV-2 mRNA (tozinameran 12y+) bival 08/02/2022 Recorded Comments : Lot: [id number] Exp: 06/08/23 LD done at [facility] Lab Results Test Name Test Result Date/Time WBC 10.6 K/mcL 11/24/2023 09:15 EST RBC 3.57 Million/mcL 11/24/2023 09:15 EST Hgb 9.8 g/dL 11/24/2023 09:15 EST Hct 31.2 % 11/24/2023 09:15 EST MCV 87.5 fL 11/24/2023 09:15 EST MCH 27.4 pg 11/24/2023 09:15 EST MCHC 31.4 g/dL 11/24/2023 09:15 EST RDW-CV 16.5 % 11/24/2023 09:15 EST Platelets 247 K/mcL 11/24/2023 09:15 EST MPV 9.4 fL 11/24/2023 09:15 EST Neutro Auto 86.8 % 11/24/2023 09:15 EST Lymph Auto 7.0 % 11/24/2023 09:15 EST Roberts Auto 5.1 % 11/24/2023 09:15 EST Eos, Auto 0.50 % 11/24/2023 09:15 EST Basophil Auto 0.6 % 11/24/2023 09:15 EST Neutro Absolute 9.2 K/mcL 11/24/2023 09:15 EST Lymph Absolute 0.7 K/mcL 11/24/2023 09:15 EST Roberts Absolute 0.5 K/mcL 11/24/2023 09:15 EST Eos Absolute 0.1 K/mcL 11/24/2023 09:15 EST Baso Absolute 0.1 K/mcL 11/24/2023 09:15 EST Slide Review Not Indicated 11/24/2023 09:15 EST Prothrombin Time 10.8 seconds 11/24/2023 09:15 EST INR 1.1 11/24/2023 09:15 EST Partial Thromboplastin Time 20.8 seconds 11/24/2023 09:15 EST Sodium Level 137 mmol/L 11/24/2023 09:15 EST Potassium Level 4.0 mmol/L 11/24/2023 09:15 EST Chloride Level 102 mmol/L 11/24/2023 09:15 EST CO2 25 mmol/L 11/24/2023 09:15 EST Alk Phos 76 IntlUnit/L 11/24/2023 09:15 EST AST 22 IntlUnit/L 11/24/2023 09:15 EST ALT 17 IntlUnit/L 11/24/2023 09:15 EST BUN 39 mg/dL 11/24/2023 09:15 EST Glucose Level 171 mg/dL 11/24/2023 09:15 EST Creatinine Level 1.70 mg/dL 11/24/2023 09:15 EST BUN/Creat Ratio 22.9 11/24/2023 09:15 EST eGFR CKD-EPI 30 mL/min/1.73 m2 11/24/2023 09:15 EST Calcium Level 9.5 mg/dL 11/24/2023 09:15 EST Protein Total 7.2 g/dL 11/24/2023 09:15 EST Albumin Level 3.6 g/dL 11/24/2023 09:15 EST Globulin 3.6 g/dL 11/24/2023 09:15 EST A/G Ratio 1.0 g/dL 11/24/2023 09:15 EST Bilirubin Total 0.7 mg/dL 11/24/2023 09:15 EST Anion Gap 10.0 11/24/2023 09:15 EST Lactic Acid Lvl 2.1 mmol/L 11/24/2023 09:47 EST Lipase Level 8 unit/L 11/24/2023 09:15 EST Magnesium Level 2.2 mg/dL 11/24/2023 09:15 EST Osmolality 287 mOsm/kg 11/24/2023 09:15 EST BNP 59 pg/mL 11/24/2023 09:15 EST Troponin-I HS 8 ng/L 11/24/2023 10:54 EST Troponin-I HS 9 ng/L 11/24/2023 10:30 EST Urine Srce Clean Catch 11/24/2023 11:43 EST UA Color LIGHT YELL 11/24/2023 11:43 EST UA Appear SL CLOUDY 11/24/2023 11:43 EST UA Glucose 250 11/24/2023 11:43 EST UA Bili NEGATIVE 11/24/2023 11:43 EST UA Ketones NEGATIVE 11/24/2023 11:43 EST UA Spec Grav 1.010 11/24/2023 11:43 EST UA Blood TRACE 11/24/2023 11:43 EST UA pH 5.00 11/24/2023 11:43 EST UA Protein NEGATIVE 11/24/2023 11:43 EST UA Urobilinogen 0.2 11/24/2023 11:43 EST UA Nitrite NEGATIVE 11/24/2023 11:43 EST UA Leuk Est LARGE Clinitek 11/24/2023 11:43 EST UA Culture Ind?. Yes 11/24/2023 11:43 EST UA WBC 25-50 11/24/2023 11:43 EST UA RBC 0-3 11/24/2023 11:43 EST UA Squam Epithelial 0-3 11/24/2023 11:43 EST UA Bacteria 1+ 11/24/2023 11:43 EST UA Hyal Cast 0-3 11/24/2023 11:43 EST ABO/Rh Echo A NEG 11/24/2023 09:15 EST ABSC Echo Negative ABSC 11/24/2023 09:15 EST Electronically Signed on 11/24/23 09:17 PM Omero Dewitt MD Discharge summary * Omero Dewitt MD: PERFORM Event Display: Discharge Summary Authored Date: [id number] YVETTE DRAPER :1945 Age:78 years Sex:Female Visit Date:11/24/2023 Primary Care Physician: Mally Vazquez APRN Hospital Course Patient was admitted for several small segmental PE. Patient was started on eliquis 10mg po bid andalready reporting some improvement in shortness of breath. She had echocardiogram which was unremarkable for right heart strain. Troponin was negative. Today patient reports improvement in dyspnea onexertion. EKG was unremarkable. Because of patient's history of malignancy CT chest abdomen and pelvis was performed and was negative for PE. She will be discharged on eliquis 10mg bid for 6 more days followed by 5mg po bid after. Physical Exam Vitals & Measurements T:??36.6?C ??(Temporal Artery)?? TMIN:??36.5?C ??(Temporal Artery)?? TMAX:??37.0?C ??(Temporal Artery)?? HR:??93??(Peripheral)?? RR:??18?? BP:??112/59?? SpO2:??96%?? Pain Score:??0?? O2 Therapy:??Room air?? General: Alert and oriented, well nourished,?No??acute distress Psychiatric: Cooperative, appropriate mood and affect Head: Normocephalic, atraumatic Eye: Normal conjunctivae pupils equal and round ENT: Moist mucous membranes normal pharynx normal nose Lungs:??Clear to auscultation??symmetrical chest wall expansion, no use of accessory respiratory muscles Heart:??Regular rate and rhythm 2/6 DAO GI:??Soft, nontender, nondistended, positive bowel sounds. ??No appreciable organomegaly?? : No suprapubic or flank tenderness Musculoskeletal:??Moves all 4 extremities, good range of motion. ??2+ radial and pedal pulses bilaterally.?? No cyanosis or clubbing or edema Skin: Warm, dry, intact. ??No rash Procedure/Surgical History ???Arthroplasty Knee (Left) (08/12/2022)???Aortic valve [...] Never Tobacco Never tobacco user Tobacco Use:. Diagnostic Results CTA chest: 1. ?? There are some small segmental pulmonary thromboemboli demonstrated with?? no large central saddle type embolus currently appreciated.The heart RV/LV?? ratio is 0.9.?? 2. ?? There is some persistent patchy multifocal inflammatory appearance?? although subtly decreased suggestive of slightly improved aeration.?? Discharge Plan 1.??Pulmonary embolus??I26.99 Continue eliquis 10mg po bid for 6 more days followed by 5mg po bid after echocardiogram unremarkable, CT chest abd pelvis negative for malignancy. Orders: acetaminophen, 650 mg = 2 tab, Oral, Tab, every 6 hr, PRN pain, First Dose: 11/25/23 16:11:00 EST, Physician Stop, Routine albuterol, 90 mcg = 1 puffs, Inhale, Aerosol, every 4 hr, PRN wheezing, First Dose: 11/24/23 21:17:00 EST, Routine Eliquis 5 mg oral tablet, 10 mg = 2 tab, Oral, BID, # 24 tab, 0 Refill(s), Pharmacy: [id number], 165, cm, 11/24/23 16:14:00 EST, Height, 93, kg, 11/24/23 9:19:00 EST, Weight Dosing Eliquis 5 mg oral tablet, 5 mg = 1 tab, Oral, BID, # 60 tab, 0 Refill(s), Pharmacy: [id number], 165, cm, 11/24/23 16:14:00 EST, Height, 93, kg, 11/24/23 9:19:00 EST, Weight Dosing atorvastatin, 10 mg = 1 tab, Oral, Tab, every evening, First Dose: 11/25/23 21:00:00 EST, Routine docusate, 100 mg = 1 cap, Oral, Cap, BID, PRN constipation, First Dose: 11/24/23 21:17:00 EST, Routine famotidine, 20 mg = 1 tab, Oral, Tab, BID, First Dose: 11/25/23 9:00:00 EST, Routine furosemide, 40 mg = 1 tab, Oral, Tab, every morning, First Dose: 11/25/23 9:00:00 EST, Routine gabapentin, 100 mg = 1 cap, Oral, Cap, Daily, First Dose: 11/25/23 9:00:00 EST, Routine letrozole, 2.5 mg = 1 tab, Oral, Tab, every morning, First Dose: 11/25/23 9:00:00 EST, Routine levothyroxine, 112 mcg = 1 tab, Oral, Tab, Daily, First Dose: 11/25/23 9:00:00 EST, Routine levothyroxine, 25 mcg = 1 tab, Oral, Tab, Daily, First Dose: 11/25/23 6:30:00 EST losartan, 100 mg = 2 tab, Oral, Tab, every evening, First Dose: 11/25/23 21:00:00 EST, Routine Metoprolol Tartrate, 25 mg = 1 tab, Oral, Tab, BID for 30 days, First Dose: 11/25/23 9:00:00 EST, Stop Date: 12/25/23 8:59:00 EST, Physician Stop, Routine pantoprazole, 40 mg = 1 EA, IV Push, Vial, every 12 hr (hui) for 30 days, First Dose: 11/25/23 9:00:00 EST, Stop Date: 12/25/23 8:59:00 EST, Physician Stop, Routine Discharge Patient, 11/25/23 18:57:00 EST, Home Independently All Diagnoses This Visit Pulmonary embolus Patient Discharge Condition stable Discharge Disposition home Patient Education Pulmonary Embolism Follow Up With When Contact Information Mally Vazquez APRN Within 1 to 2 weeks [address] [place] [address] [phone] Additional Instructions: Medication Reconciliation New Prescription apixaban (Eliquis 5 mg oral tablet)1 tab Oral (given by mouth) 2 times a day. Refills: 0. ?? apixaban (Eliquis 5 mg oral tablet)2 tab Oral (given by mouth) 2 times a day. Refills: 0. ?? Unchanged albuterol (Albuterol (Eqv-Proventil HFA) 90 mcg/inh inhalation aerosol)1 Puffs Inhale (breathe in) every 4 hours as needed as needed for wheezing. Do not exceed 12 inhalations in a 24-hour period.. Refills: 0. ?? alendronate (alendronate 70 mg oral tablet)1 tab Oral (given by mouth) Every Thursday for 84 Days. with 6-8 oz plain water, at least 30 minutes before first food, beverage, or medication of the day. Remain upright for at least 30 minutes after taking.. Refills: 1. ?? ascorbic acid (Vitamin C 500 mg oral tablet)1 tab Oral (given by mouth) every day as needed other (see comment). only during winter for immune support. ?? atorvastatin (atorvastatin 10 mg oral tablet)1 tab Oral (given by mouth) every evening for 90 Days.Refills: 3. ?? calcium-vitamin D (Calcium 600+D 600 mg-200 intl units oral tablet)1 tab Oral (given by mouth) every morning. ?? cholecalciferol (Vitamin D3 1000 intl units oral tablet)1 tab Oral (given by mouth) every morning. 1000 units = 25 mcg. ?? DME RESP Oxygen Therapy (HOME OXYGEN - 2 Liters)See instructions. as directed every night. ?? docusate (docusate sodium 100 mg oral tablet)1 tab Oral (given by mouth) 2 times a day as needed asneeded for constipation. typically takes at least after supper every evening, will take another tabin morning if needed for constipation. ?? Durable Medical Equipment for Prescription (Diabetic footwear)Please fit for diabetic shoes.. Refills: 0. ?? Durable Medical Equipment for Prescription (HOME CPAP)See instructions. as directed every night. ?? empagliflozin (Jardiance 10 mg oral tablet)1 tab Oral (given by mouth) every morning. Refills: 3. ?? famotidine (famotidine 20 mg oral tablet)1 tab Oral (given by mouth) 2 times a day. ?? folic acid (folic acid 1 mg oral tablet)1 tab Oral (given by mouth) every morning. ?? furosemide (furosemide 40 mg oral tablet)1 tab Oral (given by mouth) every morning. Refills: 3. ?? gabapentin (gabapentin 100 mg oral capsule)1 Capsules Oral (given by mouth) every day for 90 Days. Refills: 3. ?? lactobacillus acidophilus (Acidophilus)1 tab Oral (given by mouth) every morning. ?? lansoprazole (lansoprazole 30 mg oral delayed release capsule)1 Capsules Oral (given by mouth) every morning. 30 minutes before breakfast. ?? letrozole (letrozole 2.5 mg oral tablet)1 tab Oral (given by mouth) every morning. ?? levothyroxine (levothyroxine 137 mcg (0.137 mg) oral tablet)1 tab Oral (given by mouth) every morning. on an empty stomach. Refills: 3. ?? losartan (losartan 100 mg oral tablet)1 tab Oral (given by mouth) every evening. Refills: 3. ?? metoprolol (metoprolol tartrate 25 mg oral tablet)1 tab Oral (given by mouth) 2 times a day for 90 Days. Refills: 3. ?? multivitamin (multivitamin adult, oral tablet)1 tab Oral (given by mouth) every morning. ?? One Touch Ultra Test Strips (Please provide one touch ultra test strips)For blood glucose monitoring once daily.. Refills: 3. ?? ubiquinone (Coenzyme Q10 100 mg oral capsule)1 Capsules Oral (given by mouth) every morning. Electronically Signed on 11/25/23 07:08 PM Omero Dewitt MD Patient Care team information Care Team Personnel Name: Sanaz Fang APRN, Position: Physician Member Role: Nurse Practitioner Address: Address: [address] [place] [address] Name: Anabel Hallman APRN Position: Physician Member Role: Nurse Practitioner Address: Address: [address] [place] [address] [place] Name: Mally Vazquez APRN Position: Physician Member Role: Primary Care Physician Address: Address: [address] [place] [id number] Care Team Related Persons Name: LAURA LEON
--- OUTSIDE RECORDS SUMMARY | 2024-04-25 04:07 | XMS_ITS | Continuity of Care Document ---
Author Name Unknown Organization [facility] Address [address] [place] [address] Care Team Providers Care Ground Worker Name Role Phone Mally Vazquez APRN Primary Care Physician Encounter [facility] NBR [id number] Date(s): 04/13/23 - 04/13/[address] [phone]- [place] Discharge Disposition: Home or Self Care Attending Physician: Mally Vazquez APRN Admitting Physician: Mally Vazquez APRN Referring Physician: Mally Vazquez APRN Allergies, Adverse Reactions, Alerts Substance Reaction Severity Status narcotic analgesics Unknown Active sulfa drugs Rash Hallucinations Unknown Active Flomax Dizziness Unknown Active Assessment and Plan Future Appointments Immunizations Given and Recorded Vaccine Date Status Refusal Reason influenza virus vaccine, inactivated 1 08/02/22 Re corded SARS-CoV-2 mRNA (tozinameran 12y+) bival 2 08/02/22 Recorded 1Result Comment: RD done at [facility] Lot: [id number] exp: 05/08/2023 Sanofi 2Result Comment: Lot: [id number] Exp: 06/08/23 LD done at [facility] Medications Acidophilus Probiotic Blend 1 cap, Oral, Daily, 0 Refill(s) Start Date: 08/11/22 Status: Ordered Albuterol (Eqv-Proventil HFA) 90 mcg/inh inhalation aerosol 1 puffs, Inhale, every 4 hr, PRN as needed for wheezing, Do not exceed 12 inhalations in a 24-hour period., # 1 EA, 0 Refill(s), Pharmacy: [facility] #[id number], 170, cm, 11/11/22 12:19:00 EST, [...] taking., # 12 tab, 1 Refill(s), Pharmacy: [facility]... Start Date: 02/03/23 Stop Date: 07/21/23 Status: Ordered aspirin 81 mg oral delayed release tablet 81 mg = 1 tab, Oral, Daily, # 30 tab, 0 Refill(s) Start Date: 01/05/23 Status: Ordered atorvastatin 10 mg oral tablet 10 mg = 1 tab, Oral, every evening, # 90 tab, 3 Refill(s), Pharmacy: [facility],114.09, cm, 08/12/22 16:18:00 EDT, Height/Length [...] 03/24/2023, # 90 tab, 0 Refill(s), Pharmacy: [facility] #[id number], 170, cm, 11/11/22 12:19:00 EST, Height/Length Dosing, 96, kg, 11/11/22 12:19:00 EST, Weight Dosing Start Date: 03/09/23 Status: Ordered Coenzyme Q10 100 mg oral capsule 100 mg = 1 cap, Oral, Daily Start Date: 08/11/22 Status: Ordered Diabetic footwear Diabetic footwear, Please fit for diabetic shoes., Supply, See instructions, # 1 EA, 0 Refill(s) Start Date: 03/30/23 Status: Ordered furosemide 40 mg oral tablet 40 mg = 1 tab, Oral, every morning, # 90 tab, 3 Refill(s), Pharmacy: [facility],114.09, cm, 08/12/22 16:18:00 EDT, Height/Length [...] STOMACH, # 90 tab, 3 Refill(s), Pharmacy: [facility], 170, cm, 11/11/22 12:19:00 EST, Height/Length Dosing, 96, kg,11/11/22 12:19:00 EST, Weight Dosing Start Date: 04/14/23 Status: Ordered losartan 100 mg oral tablet 100 mg = 1 tab, Oral, Daily, # 90 tab, 3 Refill(s), Pharmacy: [facility], 114.09, cm, 08/12/22 16:18:00 EDT, Height/Length Dosing, 165, kg, 08/12/22 16:18:00 EDT, Weight Dosing Start Date: 10/24/22 Stop Date: 10/19/23 Status: Ordered metFORMIN 500 mg oral tablet 500 mg = 1 tab, Oral, every evening, # 90 tab, 3 Refill(s), Pharmacy: [facility], 114.09, cm, 08/12/22 16:18:00 EDT, Height/Length Dosing, 165, kg, 08/12/22 16:18:00 EDT, Weight Dosing Start Date: 10/24/22 Stop Date: 10/19/23 Status: Ordered metoprolol tartrate 25 mg oral tablet 25 mg = 1 tab, Oral, BID, # 180 tab, 3 Refill(s), Pharmacy: [facility], 114.09, cm, 08/12/22 16:18:00 EDT, Height/Length Dosing, 165, kg, 08/12/22 16:18:00 EDT, Weight Dosing Start Date: 10/24/22 Stop Date: 12/11/23 Status: Ordered multivitamin adult, oral tablet 1 tab, Oral, Daily Start Date: 08/11/22 Status: Ordered Problem List Condition Confirmation Course [...] Exam Date Time Procedure Performing Provider Status 04/13/23 8:47 AM MG Mammo Diagnostic Left EjLuz; Ariadna (Verified) Notes: (MG Mammo Diagnostic Left) Reason For Exam: Abnormal mammogram, further evaluation required MG Mammo Diagnostic Left EXAM DESCRIPTION: MG Mammo Diagnostic Left 04/13/2023 INDICATION: ABNORMAL MAMMOGRAM, FURTHER EVALUATION REQUIRED COMPARISON: Screening mammogram from 04/03/2023 BREAST DENSITY: There are scattered areas of fibroglandular density. FINDINGS: Spot magnification left CC and mL views were performed with digital breast tomosynthesis. Images were reviewed using computer aided detection. Grouping of small calcifications in the left mid breast described on previous screening study is well seen on magnification views. Several small punctate calcifications in this region with somewhat linear distribution noted on mL view.. No mass or definite architectural distortion noted in this region, but neoplastic process such as DCIS can not be excluded. Stereotactic biopsy is recommended. Results were discussed with the patient and telephoned to referring provider's office at the time of examination. ASSESSMENT: Suspicious finding. BI-RADS category 4. RECOMMENDATION: 1: Biopsy JOB #: [id number] Final Signed by: Kishore Parra MD Signed (Electronic Signature): 04/13/2023 9:26 am Social History Social History Type Response Tobacco Never tobacco user T obacco Use:. 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 Katlyn Hallman, DO 08/12/22 Non Biological Knee L Device Identifier Serial Number Lot or Batch Number Manufacturing Date Expiration Date Distinct Identification Code MRI Safety Implantable Status Assigning Authority Unknown NA [id number] Unknown 08/07/24 Unknown Unknown Active Unknown Unknown N/A [id number] 2 Unknown 06/10/32 Unknown Unknown Active Unknown Unknown NA [id number] Unknown 04/01/27 Unknown Unknown Active Unknown Unknown N/A [id number] 2 Unknown 12/07/31 Unknown Unknown Active Unknown Unknown N/A [id number] 2 Unknown 12/15/26 Unknown Unknown Active Unknown MG Breast - left Diagnostic * Kishore Parra MD: VERIFY, VERIFY Event Display: Report EXAM DESCRIPTION: MG Mammo Diagnostic Left 04/13/2023 INDICATION: ABNORMAL MAMMOGRAM, FURTHER EVALUATION REQUIRED COMPARISON: Screening mammogram from 04/03/2023 BREAST DENSITY: There are scattered areas of fibroglandular density. FINDINGS: Spot magnification left CC and mL views were performed with digital breast tomosynthesis. Images were reviewed using computer aided detection. Grouping of small calcifications in the left mid breast described on previous screening study is well seen on magnification views. Several small punctate calcifications in this region with somewhat linear distribution noted on mL view.. No mass or definite architectural distortion noted in this region, but neoplastic process such as DCIS can not be excluded. Stereotactic biopsy is recommended. Results were discussed with the patient and telephoned to referring provider's office at the time of examination. ASSESSMENT: Suspicious finding. BI-RADS category 4. RECOMMENDATION: 1: Biopsy JOB #: [id number] Final Signed by: Kishore Parra MD Signed (Electronic Signature): 04/13/2023 9:26 am Patient Care team information Care Team Personnel Name: Sanaz Fang APRN, Position: Physician Member Role: Nurse Practitioner Address: Address: [address] [place] [address] Name: Anabel Hallman APRN Position: Physician Member Role: Nurse Practitioner Address: Address: [address] [place] [address] Name: Mally Vazquez APRN Position: Physician Member Role: Primary Care Physician Address: Address: [address] [place] [address] [place] Care Team Related Persons Name: LAURA LEON Address: Home
--- OUTSIDE RECORDS SUMMARY | 2024-04-25 04:07 | XMS_ITS | Continuity of Care Document ---
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 Name Role Phone Taylor DEWEYNMally Ronda Primary Care Physician [phone] Encounter [facility] NBR [id number] Date(s): 03/11/23 - 03/11/23 [facility] [address] [place], [place] [address] Encounter Diagnosis Osteoarthritis of right knee(Discharge Diagnosis) - 03/11/23 Discharge Disposition: Home or Self Care Attending Physician: Katlyn Peoples DO Allergies, Adverse Reactions, Alerts Substance Reaction Severity Status narcotic analgesics Unknown Active sulfa drugs Rash Hallucinations Unknown Active Flomax Dizziness Unknown Active Assessment and Plan Future Appointments Functional Status 03/11/23 Recent Travel History No recent travel Immunizations Given and Recorded Vaccine Date Status Refusal Reason influenza virus vaccine, inactivated 1 08/02/22 Re corded SARS-CoV-2 mRNA (tozinameran 12y+) bival 2 08/02/22 Recorded 1Result Comment: RD done at [facility] Lot: [id number] exp: 05/08/2023 Sanofi 2Result Comment: Lot: [id number] Exp: 06/08/23 LD done at [facility] Medications Acidophilus Probiotic Blend 1 cap, Oral, Daily, 0 Refill(s) Start Date: 08/11/22 Status: Ordered Albuterol (Eqv-Proventil HFA) 90 mcg/inh inhalation aerosol 1 puffs, Inhale, every 4 hr, PRN as needed for wheezing, Do not exceed 12 inhalations in a 24-hour period., # 1 EA, 0 Refill(s), Pharmacy: [facility] #[id number], 170, cm, 11/11/22 12:19:00 EST, [...] taking., # 12 tab, 1 Refill(s), Pharmacy: [facility]... Start Date: 02/03/23 Stop Date: 07/21/23 Status: Ordered aspirin 81 mg oral delayed release tablet 81 mg = 1 tab, Oral, Daily, # 30 tab, 0 Refill(s) Start Date: 01/05/23 Status: Ordered atorvastatin 10 mg oral tablet 10 mg = 1 tab, Oral, every evening, # 90 tab, 3 Refill(s), Pharmacy: [facility],114.09, cm, 08/12/22 16:18:00 EDT, Height/Length [...] 03/24/2023, # 90 tab, 0 Refill(s), Pharmacy: [facility] #[id number], 170, cm, 11/11/22 12:19:00 EST, [...] morning, # 90 tab, 3 Refill(s), Pharmacy: [facility],114.09, cm, 08/12/22 16:18:00 EDT, Height/Length [...] Daily, # 90 tab, 3 Refill(s), Pharmacy: [facility], 114.09, cm, 08/12/22 16:18:00 EDT, Height/Length Dosing, 165, kg, 08/12/22 16:18:00 EDT, Weight Dosing Start Date: 10/24/22 Stop Date: 10/19/23 Status: Ordered metFORMIN 500 mg oral tablet 500 mg = 1 tab, Oral, every evening, # 90 tab, 3 Refill(s), Pharmacy: [facility], 114.09, cm, 08/12/22 16:18:00 EDT, Height/Length Dosing, 165, kg, 08/12/22 16:18:00 EDT, Weight Dosing Start Date: 10/24/22 Stop Date: 10/19/23 Status: Ordered metoprolol tartrate 25 mg oral tablet 25 mg = 1 tab, Oral, BID, # 180 tab, 3 Refill(s), Pharmacy: [facility], 114.09, cm, 08/12/22 16:18:00 EDT, [...] Range]: 1 Peripheral Pulse Rate [60-100 bpm] 73 bp m (03/11/23 1:09 PM) Blood Pressure [90-140/60-90 mmHg] 110/6 2mmHg (03/11/23 1:09 PM) Weight 96.16 kg (03/11/23 1:09 PM) Weight Measured (lbs) 211.996 lb (03/11/23 1:09 PM) Height 165.19 cm (03/11/23 1:09 PM) Height/Length Measured (inches) 65.04 in ch (03/11/23 1:09 PM) BSA Measured 2.1 m2 (03/11/23 1:09 PM) Body Mass Index 35.24 kg/m2 (03/11/23 1:09 PM) Social History Social History Type Response Tobacco Never tobacco user T obacco Use:. 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 Katlyn Peoples, 08/12/22 Non Biological Knee L Device Identifier Serial Number Lot or Batch Number Manufacturing Date Expiration Date Distinct Identification Code MRI Safety Implantable Status Assigning Authority Unknown NA [id number] Unknown 08/07/24 Unknown Unknown Active Unknown Unknown N/A [id number] 2 Unknown 06/10/32 Unknown Unknown Active Unknown Unknown NA [id number] 1 Unknown 04/01/27 Unknown Unknown Active Unknown Unknown N/A [id number] 2 Unknown 12/07/31 Unknown Unknown Active Unknown Unknown N/A [id number] 2 Unknown 12/15/26 Unknown Unknown Active Unknown Physician Outpatient Note * Katlyn Peoples, DO: PERFORM Event Display: Office Clinic Note Physician Authored Date: [id number] 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 Her left knee is doing well.??Her right knee has been??progressively debilitating over the past year.?? She is??considering arth roplasty. ??She had a mental status change during her left knee arthroplasty??that she thankfully fully recovered from??but??she is??reluctant??to see if that recurs??again in the future.?? So today??her right knee is achy fairly persistently and she??is requesting an injection. Review of Systems Constitutional:?No??fevers,?No??chills,?No??sweats Eye:?No??recent visual problems ENT:?No??ear pain,?No??nasal congestion,?No??sore throat Respiratory:?No??shortness of breath,?No??cough Cardiovascular:?No??Chest pain,?No??palpitations,?No??syncope Gastrointestinal:?Nonausea,?No??vomiting,?No??diarrhea Genitourinary:?No??hematuria Gonzalo/Lymph:?No??bruising tendency,?No??swollen lymph glands Endocrine:?No??excessive thirst,??No??excessive hunger Musculoskeletal:??No??back pain,??No??neck pain,??Positive for??joint pain,??No??muscle pain,??No??decreased range of motion Integumentary:?No??rash,?No??pruritus,?No??abrasions Neurologic: Alert & oriented X 4 Psychiatric:?No??anxiety,?No??depression Physical Exam Vitals & Measurements HR:??73??(Peripheral)?? BP:??110/62?? SpO2:??95%?? HT:??165.19??cm?? WT:??96.16??kg?? BMI:??35.24?? Pain Score:??7?? BSA:??2.1?? On physical exam??of the right knee she ambulates into the office with a slightly antalgic gait.?? There is??varus alignment. ??She is point tender at the medial joint line.?? She flexes to approximately 110 degrees with marked crepitus throughout the range of motion. ??There is good ligamentous stability in all planes. ??Normal muscle tone and neurovascular intact distally.?? X-rays of the rightknee demonstrating??varus alignment??with complete collapse the medial joint space and [id number]. ??Peripheral osteophytes present in all 3 compartments. Procedure The right knee and is triple sterile prepped with alcohol at the anterior lateral joint line.?? Sheis injected utilizing a 22-gauge needle with 40 mg of Kenalog and 5 cc of lidocaine. ??The needle was withdrawn and a Band-Aid applied.?? She tolerated that procedure well. ??Postinjection instructions given. Assessment/Plan 1.??Osteoarthritis of right knee??M17.11 Right knee osteoarthritis??that is??worsening.?? Today's injection will likely give her some transient relief.?? We reviewed her images together as well as reasonable expectations going forward.?? This will likely go on to arthroplasty.?? I spent approximately 25 minutes together with 20 of those 25 minutes direct [id number] counseling discussing this. Problem List/Past Medical History Ongoing Acquired hypothyroidism Altered bowel habits Amaurosis fugax Anemia of chronic disorder Anemia, hemolytic Aortic valve stenosis, mild Arthritis of right acromioclavicular joint Asthma Asthma Autoimmune hemolytic anemia, unspecified Cardiomyopathy, dilated Carotid artery aneurysm Cholecystitis, chronic Colon arteriovenous malformation Coronary artery disease Cystocele, midline Depression with anxiety Diabetes mellitus type 2 Diabetic polyneuropathy associated with type 2 diabetes mellitus 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 History of Hodgkin's disease History of ITP History of varicose veins of lower extremity Hyperlipidemia Hypertension Hypertriglyceridemia Hypothyroidism Isolation, social Lymphedema Mild stress incontinence Mitral regurgitation Mitral valve disorder Muscle cramps Neuropathy NHL - Non-Hodgkin's lymphoma Nocturnal hypoxemia Obstructive sleep apnea Osteoarthritis Peripheral vascular disease, [...] replacement (2013)???EGD - Esophagogastroduodenoscopy (05/24/2010)???Colonoscopy (02/05/2000)???Bilateral tubal ligation???ALEJO BSO - Total abdominal hysterectomy and bilateral salpingo-oophorectomy Medications Acidophilus Probiotic Blend, 1 cap, Oral, Daily Albuterol (Eqv-Proventil HFA) 90 mcg/inh inhalation aerosol, 1 puffs, Inhale, every 4 hr, PRN alendronate 70 mg oral tablet, 70 mg= 1 tab, Oral, every week, 1 refills aspirin 81 mg oral delayed release tablet, 81 mg= 1 tab, Oral, Daily atorvastatin 10 mg oral tablet, 10 mg= 1 tab, Oral, every evening, 3 refills calcium (as carbonate)-vitamin D 600 mg-200 intl units oral tablet, 1 tab, Oral, Daily citalopram 20 mg oral tablet, See Instructions Coenzyme Q10 100 mg oral capsule, 100 mg= 1 cap, Oral, Daily docusate sodium 100 mg oral capsule, 100 mg= 1 cap, Oral, BID, PRN furosemide 40 mg oral tablet, 40 mg= 1 tab, Oral, every morning, 3 refills gabapentin 100 mg oral capsule, 100 mg= 1 cap, Oral, Daily lansoprazole 30 mg oral delayed release capsule, 30 mg= 1 cap, Oral, every morning levothyroxine 137 mcg (0.137 mg) oral tablet, 137 mcg= 1 tab, Oral, every morning losartan 100 mg oral tablet, 100 mg= 1 tab, Oral, Daily, 3 refills metFORMIN 500 mg oral tablet, 500 mg= 1 tab, Oral, every evening, 3 refills metoprolol tartrate 25 mg oral tablet, 25 mg= 1 tab, Oral, BID, 3 refills multivitamin adult, oral tablet, 1 tab, Oral, Daily Senna Lax 8.6 mg oral tablet, 17.2 mg= 2 tab, Oral, every night at bedtime, PRN Allergies Flomax??(Dizziness) narcotic analgesics sulfa drugs??(Rash, Hallucinations) Social History Alcohol Past Electronic Cigarette/Vaping Electronic Cigarette Use: Never. Employment/School Retired Home/Environment Lives with Alone, Son Josias stays at her house when needed. . Living situation: Home with assistance. Home equipment: Walker. Tobacco Never tobacco user Tobacco Use:. Family History Breast cancer: Mother and Aunt/Uncle. Cancer: Son. Heart: Mother and Father. Immunizations Vaccine Date Status influenza virus vaccine, inactivated 08/02/2022 Recorded Comments : RD done at [facility] Lot: [id number] exp: 05/08/2023 Sanofi SARS-CoV-2 mRNA (tozinamandrews 12y+) bival 08/02/2022 Recorded Comments : Lot: [id number] Exp: 06/08/23 LD done at [facility] Electronically Signed on 03/11/23 01:45 PM Katlyn Peoples, Patient Care team information Care Team Personnel Name: Sanaz Fang APRN, Position: Physician Member Role: Nurse Practitioner Address: Address: [address] [place] [address] Name: Anabel Peoples APRN Position: Physician Member Role: Nurse Practitioner Address: Address: [address] [place] [address] Name: Mally Vazquez APRN Position: Physician Member Role: Primary Care Physician Address: Address: [address] [place] [address] [place] Care Team Related Persons Name: LAURA LEON Address: Home
--- OUTSIDE RECORDS SUMMARY | 2024-04-25 04:07 | XMS_ITS | Continuity of Care Document ---
Author Name Unknown Organization [facility] Ambulatory Clinics Address [address] [place] [address] Care Team Providers Care B2B Sales Consultant Name Role Phone Mally Vazquez APRN Primary Care Physician [phone] [facility] NBR [id number] Date(s): 09/08/23 - 09/08/23 [facility] Ambulatory Clinics [address] [place] [address]- [place] Discharge Disposition: Home Allergies, Adverse Reactions, Alerts Substance Reaction Severity Status narcotic analgesics Unknown Active sulfa drugs Rash Hallucinations Unknown Active Flomax Dizziness Unknown Active Assessment and Plan Future Appointments Future Scheduled Tests Laboratory* Comprehensive Metabolic Panel 09/18/23 Radiology* US Kidney Bladder 08/31/23 Immunizations Given and Recorded Vaccine Date Status Refusal Reason influenza virus vaccine, inactivated 1 08/02/22 Re corded SARS-CoV-2 mRNA (tozinameran 12y+) bival 2 08/02/22 Recorded 1Result Comment: RD done at [place] Lot: [id number] exp: 05/08/2023 [employer] 2Result Comment: Lot: [id number] Exp: 06/08/23 LD done at [place] Medications Albuterol (Eqv-Proventil HFA) 90 mcg/inh inhalation aerosol 1 puffs, Inhale, every 4 hr, PRN as needed for wheezing, Do not exceed 12 inhalations in a 24-hour period., # 1 EA, 0 Refill(s), Pharmacy: [id number], 170, cm, 11/11/22 12:19:00 EST, [...] taking., # 12 tab, 1 Refill(s), Pharmacy: [facility], 170, cm, 11/11/22 12:19:00 EST, Height/Length Dosing, 96, kg, 11/11/22 12:19:00 EST, Weight Dosing Start Date: 07/21/23 Stop Date: 01/05/24 Status: Ordered amoxicillin-clavulanate 875 mg-125 mg oral tablet 4 EA, TAKE 1 TABLET BY MOUTH TWICE DAILY, 0 Refill(s) Start Date: 04/22/23 Status: Ordered aspirin 81 mg oral delayed release tablet 81 mg = 1 tab, Oral, Daily, # 30 tab, 0 Refill(s) Start Date: 01/05/23 Status: Ordered atorvastatin 10 mg oral tablet 10 mg = 1 tab, Oral, every evening, # 90 tab, 3 Refill(s), Pharmacy: [facility],114.09, cm, 08/12/22 16:18:00 EDT, Height/Length Dosing, 165, kg, 08/12/22 16:18:00 EDT, Weight Dosing Start Date: 10/24/22 Stop Date: 10/19/23 Status: Ordered Calcium 600+D 600 mg-200 intl units oral tablet 28 tab, 0 Refill(s) Start Date: 04/22/23 Status: Ordered Coenzyme Q10 100 mg oral capsule 100 mg = 1 cap, Oral, Daily Start Date: 08/11/22 Status: Ordered Diabetic footwear Diabetic footwear, Please fit for diabetic shoes., Supply, See instructions, # 1 EA, 0 Refill(s) Start Date: 03/30/23 Status: Ordered famotidine 20 mg oral tablet 46 tab, 0 Refill(s) Start Date: 04/22/23 Status: Ordered furosemide 40 mg oral tablet 40 mg = 1 tab, Oral, every morning, # 90 tab, 3 Refill(s), Pharmacy: [facility],114.09, cm, 08/12/22 16:18:00 EDT, Height/Length Dosing, 165, kg, 08/12/22 16:18:00 EDT, Weight Dosing Start Date: 10/24/22 Stop Date: 10/19/23 Status: Ordered gabapentin 100 mg oral capsule 100 mg = 1 cap, Oral, Daily, # 90 cap, 0 Refill(s), Pharmacy: [facility], 170, cm, 11/11/22 12:19:00 EST, Height/Length Dosing, 96, kg, 11/11/22 12:19:00 EST, Weight Dosing Start Date: 06/05/23 Stop Date: 09/03/23 Status: Ordered Jardiance 10 mg oral tablet 10 mg = 1 tab, Oral, every morning, # 30 tab, 0 Refill(s), Pharmacy: [facility] #[id number], 170, cm, 11/11/22 12:19:00 EST, Height/Length Dosing, 96, kg, 11/11/22 12:19:00 EST, Weight Dosing Start Date: 08/28/23 Status: Ordered levothyroxine 137 mcg (0.137 mg) oral tablet See Instructions, TAKE 1 TABLET DAILY IN THE MORNING ON AN EMPTY STOMACH, # 90 tab, 3 Refill(s), Pharmacy: [facility], 170, cm, 11/11/22 12:19:00 EST, Height/Length Dosing, 96, kg,11/11/22 12:19:00 EST, Weight Dosing Start Date: 04/14/23 Status: Ordered losartan 100 mg oral tablet 100 mg = 1 tab, Oral, Daily, # 90 tab, 3 Refill(s), Pharmacy: [facility], 114.09, cm, 08/12/22 16:18:00 EDT, Height/Length Dosing, 165, kg, 08/12/22 16:18:00 EDT, Weight Dosing Start Date: 10/24/22 Stop Date: 10/19/23 Status: Ordered metoprolol tartrate 25 mg oral tablet 25 mg = 1 tab, Oral, BID, # 180 tab, 3 Refill(s), Pharmacy: [facility], 170, cm,11/11/22 12:19:00 EST, Height/Length Dosing, 96, kg, 11/11/22 12:19:00 EST, Weight Dosing Start Date: 08/25/23 Stop Date: 08/19/24 Status: Ordered multivitamin adult, oral tablet 1 tab, Oral, Daily Start Date: 08/11/22 Status: Ordered BallLogic oral capsule 8 EA, TAKE 1 CAPSULE BY MOUTH TWICE DAILY, 0 Refill(s) Start Date: 04/22/23 Status: Ordered Problem List Condition Confirmation Course [...] Hypothyroidism Confirmed Active Nocturnal hypoxemia Confirmed Active Ductal carcinoma in situ (DCIS) [...] Safety Implantable Status Assigning Authority Unknown NA [id number] Unknown 08/07/24 Unknown Unknown Active Unknown Unknown N/A [id number] 2 Unknown 06/10/32 Unknown Unknown Active Unknown Unknown NA [id number] 1 Unknown 04/01/27 Unknown Unknown Active Unknown Unknown N/A [id number] 2 Unknown 12/07/31 Unknown Unknown Active Unknown Unknown N/A [id number] 2 Unknown 12/15/26 Unknown Unknown Active Unknown Patient Care team information Care Team Personnel Name: Sanaz Fang APRN, Position: Physician Member Role: Nurse Practitioner Address: Address: [address] [place] [address] Name: Anabel Hallman APRN Position: Physician Member Role: Nurse Practitioner Address: Address: [address] [place] [address] Name: Mally Vazquez APRN Position: Physician Member Role: Primary Care Physician Address: Address: [address] [place] [address] Care Team Related Persons Name: LAURA LEON
--- OUTSIDE RECORDS SUMMARY | 2024-04-25 04:07 | XMS_ITS | Continuity of Care Document ---
Author Name Unknown Organization [facility] Address [address] [place] [id number] Care Team Providers Care Learning Coach Name Role Phone Mally Vazquez APRN Primary Care Physician Encounter [facility] NBR [id number] Date(s): 11/14/23 - 11/16/[address] [id number]- [place] Encounter Diagnosis Pneumonia(Discharge Diagnosis) - 11/14/23 CHF exacerbation(Discharge Diagnosis) - 11/14/23 Diabetes mellitus type 2(Discharge Diagnosis) - 11/14/23 Idiopathic thrombocytopenia(Discharge Diagnosis) - 11/14/23 NOVA (acute kidney injury)(Discharge Diagnosis) - 11/14/23 Weakness(Discharge Diagnosis) - 11/15/23 Viral pneumonia, unspecified(Final) - Immune thrombocytopenic purpura(Final) - Hypertensive heart and chronic kidney disease with heart failure and stage 1 through stage 4 chronic kidney disease, or unspecified chronic kidney disease (Final) - Dilated cardiomyopathy(Final) - Acute kidney failure, unspecified(Final) - Obstructive sleep apnea (adult) (pediatric)(Final) - Chronic kidney disease, stage 3b(Final) - Hypoxemia(Final) - Hypothyroidism, unspecified(Final) - Unspecified asthma, uncomplicated(Final) - 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) - Hyperlipidemia, unspecified(Final) - Heart failure, unspecified(Final) - 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) - Depression, unspecified(Final) - Anxiety disorder, unspecified(Final) - Hormone replacement therapy(Final) - 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 unsure what they got Assessment and Plan Future Appointments Future Scheduled Tests Laboratory* Comprehensive Metabolic Panel 09/18/23 Radiology* US Kidney Bladder 08/31/23 Functional Status 11/16/23 Living Environment Living Situation: Current Home Treatments: CPAP Home Devices/Equipment CPAP unit, Oxygen Professional Skilled Services: Special Services and Community Resources: Meal delivery/preparation Sensory Deficits: Performed by: Renata Edmond-11/16/23 08:45:00 Living Situation: Home with family care Current Home Treatments: CPAP Home Devices/Equipment CPAP unit, Oxygen Professional Skilled Services: Special Services and Community Resources: Sensory Deficits: Performed by: Francoise Harris11/14/23 23:03:00 Lives In Mobile home Lives With Alone Living Situation Home with family car e Home Barriers None Current Home Treatments CPAP, Oxygen therapy Home Equipment CPAP unit, Oxygen Special Services and Communi ty Resources Meal delivery/preparation Number of Stairs Inside 2 Number of Stairs Outside 2 11/16/23 Prior ADL Status Independent Prior Mobility Status Independent Prior Instrumental ADL Level Independent Prior Cognitive-Communication Skills Ind ependent 11/16/23 Personal Care Provided Bed bath, Diaper/Brief changed, Gown change, Donna care 11/16/23 Anti-Embolism Device Activity: Patient r efused 11/15/23 Anti-Embolism Device Removal Reason: Pat ient refused Anti-Embolism Site Condition: No complic ations 11/14/23 Activity Status ADL Up to toilet 11/14/23 ADLs Independent Family Member Travel History No recent t ravel Recent Travel History No recent travel Other exposure to Infectious Disease Non e Immunizations Given and Recorded Vaccine Date Status Refusal Reason influenza virus vaccine, inactivated 1 08/02/22 Re corded SARS-CoV-2 mRNA (tovalentinoeran 12y+) bival 2 08/02/22 Recorded 1Result Comment: RD done at [facility] Lot: [id number] exp: 05/08/2023 [employer] 2Result Comment: Lot: [id number] Exp: 06/08/23 LD done at [facility] Medications Acidophilus 1 tab, Oral, every morning Start Date: 11/15/23 Status: Ordered Albuterol (Eqv-Proventil HFA) 90 mcg/inh inhalation aerosol 1 puffs, Inhale, every 4 hr, PRN as needed for wheezing, Do not exceed 12 inhalations in a 24-hour period., # 1 EA, 0 Refill(s), Pharmacy: [id number], 170, cm, 11/11/22 12:19:00 EST, [...] taking., # 12 tab, 1 Refill(s), Pharmacy: [facility], 170, cm, 11/11/22 12:19:00 EST, Height/Length Dosing, 96, kg, 11/11/22 12:19:00 EST, Weight Dosing Start Date: 07/21/23 Stop Date: 01/05/24 Status: Ordered atorvastatin 10 mg oral tablet 10 mg = 1 tab, Oral, every evening, # 90 tab, 3 Refill(s), Pharmacy: [facility],114.09, cm, 08/12/22 16:18:00 EDT, Height/Length [...] BID, # 10 cap, 0 Refill(s), Pharmacy: [facility], 165.1, cm, 11/14/23 22:52:00 EST, [...] morning, # 90 tab, 3 Refill(s), Pharmacy: [facility], 165, cm, 09/24/23 19:47:00 EST, Height, 102.2, kg, 09/24/23 19:47:00 EST, Weight Dosing Start Date: 10/13/23 Status: Ordered gabapentin 100 mg oral capsule 100 mg = 1 cap, Oral, Daily, # 90 cap, 3 Refill(s), Pharmacy: [facility], 165, cm, 09/24/23 19:47:00 EST, [...] morning, # 30 tab, 0 Refill(s), Pharmacy: [facility] #[id number], 165, cm, 09/24/2319:47:00 EST, Height, [...] stomach, # 90 tab, 3 Refill(s), Pharmacy: [facility], 170, cm, 11/11/22 12:19:00 EST, Height/Length Dosing, 96, kg, 11/11/22 12:19:00 EST, Weight Dosing Start Date: 04/14/23 Status: Ordered losartan 100 mg oral tablet 1 tab, Oral, every evening, # 90 tab, 3 Refill(s), Pharmacy: [facility], 165, cm, 09/24/23 19:47:00 EST, Height, 102.2, kg, 09/24/23 19:47:00 EST, Weight Dosing Start Date: 10/01/23 Status: Ordered metoprolol tartrate 25 mg oral tablet 25 mg = 1 tab, Oral, BID, # 180 tab, 3 Refill(s), Pharmacy: [facility], 170, cm,11/11/22 12:19:00 EST, Height/Length Dosing, 96, kg, 11/11/22 12:19:00 EST, Weight Dosing Start Date: 08/25/23 Stop Date: 08/19/24 Status: Ordered Mucinex 600 mg oral tablet, extended release 1,200 mg = 2 tab, Oral, BID, # 28 tab, 0 Refill(s), Pharmacy: [facility], 165.1, cm, 11/14/23 22:52:00 EST, [...] TID, # 21 cap, 0 Refill(s), Pharmacy: [facility], 165.1, cm, 11/14/23 22:52:00 EST, [...] Start Date: 11/15/23 Status: Ordered Mental Status 11/14/23 Eye Opening Response Chichi Spontaneous ly Best Verbal Response Blakeslee Confused Best Motor Response Blakeslee Obeys comman ds Blakeslee Coma Score 14 Problem List Condition Confirmation Course Effective Dates [...] Results Laboratory List Name Date Glucose POCT 11/16/23 Glucose POCT 11/16/23 .Manual Differential (LTTL) 11/16/23 Basic Metabolic Panel (BMP) 11/16/23 CBC w/ Diff 11/16/23 Glucose POCT 11/15/23 .Manual Differential (LTTL) 11/15/23 Basic Metabolic Panel (BMP) 11/15/23 CBC w/ Diff 11/15/23 Legionella Antigen Urine 11/14/23 Streptococcus Pneumoniae Antigen Urine Urinalysis Microscopic 11/14/23 Urinalysis with Micro if Indicated and C ulture if Indicated 11/14/23 SARS-CoV-2 (COVID-19)/Flu/RSV (GeneXpert ) 11/14/23 .Manual Differential (LTTL) 11/14/23 BNP 11/14/23 Blood Gas Venous 11/14/23 C-Reactive Protein 11/14/23 CBC w/ Diff 11/14/23 Comprehensive Metabolic Panel 11/14/23 Lactic Acid 11/14/23 Magnesium Level 11/14/23 PT/ INR 11/14/23 Procalcitonin 11/14/23 Troponin-I High Sensitivity (High Sensit ivityTroponin-I) 11/14/23 Most recent to oldest [Reference Range]: 1 2 3 WBC [4.8-10.8 K/mcL] 17.3 K/mcL *HI* (11/16/23 6:20 AM) 16.5 K/mcL *HI* (11/15/23 6:19 AM) 17.0 K/mcL *HI* (11/14/23 7:03 PM) RBC [4.20-5.40 Million/mcL] 2.93 Million /mcL *LOW* (11/16/23 6:20 AM) 2.92 Million/mcL *LOW* (11/15/23 6:19 AM) 3.23 Million/mcL *LOW* (11/14/23 7:03 PM) Segs Man 79 *NA* (11/16/23 6:20 AM) 76 *NA* (11/15/23 6:19 AM) 75 *NA* (11/14/23 7:03 PM) Lymph Man [20.5-51.1 %] 7.0 % *LOW* (11/16/23 6:20 AM) 10.0 % *LOW* (11/15/23 6:19 AM) 7.0 % *LOW* (11/14/23 7:03 PM) Davie Man [1.7-9.3 %] 7.0 % (11/16/23 6:20 AM) 13.0 % *HI* (11/15/23 6:19 AM) 3.0 % (11/14/23 7:03 PM) Eos Man [0.00-3.00 %] 3.00 % (11/16/23 6:20 AM) 0.00 % (11/15/23 6:19 AM) 0.00 % (11/14/23 7:03 PM) Prothrombin Time [9.1-10.6 seconds] 10.4 seconds (11/14/23 7:03 PM) INR [0.9-1.1] 1.0 1 (11/14/23 7:03 PM) BUN [7-25 mg/dL] 31 mg/dL *HI* (11/16/23 6:20 AM) 27 mg/dL *HI* (11/15/23 6:19 AM) 30 mg/dL *HI* (11/14/23 7:03 PM) Glucose POC 150 *NA* (11/16/23 11:50 AM) 143 *NA* (11/16/23 8:46 AM) 146 *NA* (11/15/23 8:31 PM) UA Color [Yellow] Yellow (11/14/23 8:05 PM) UA WBC [0-3] None Seen (11/14/23 8:05 PM) Glucose Level [70-109 mg/dL] 128 mg/dL *HI* (11/16/23 6:20 AM) 159 mg/dL *HI* (11/15/23 6:19 AM) 210 mg/dL *HI* (11/14/23 7:03 PM) Potassium Level [3.5-5.1 mmol/L] 4.6 mmol/L (11/16/23 6:20 AM) 3.5 mmol/L (11/15/23 6:19 AM) 4.3 mmol/L (11/14/23 7:03 PM) MCV [81.0-99.0 fL] 87.6 fL (11/16/23 6:20 AM) 87.7 fL (11/15/23 6:19 AM) 89.4 fL (11/14/23 7:03 PM) UA Urobilinogen [0.2] 0.2 (11/14/23 8:05 PM) RBC Morph [Normal] Abnormal *ABN* (11/16/23 6:20 AM) Abnormal *ABN* (11/15/23 6:19 AM) Abnormal *ABN* (11/14/23 7:03 PM) UA Bili [Negative] Negative (11/14/23 8:05 PM) CO2 Total Venous [22.0-26.0 mmol/L] 31.9 mmol/L *HI* (11/14/23 7:03 PM) CRP [<=10.0 mg/L] 206.6 mg/L *HI* (11/14/23 7:03 PM) UA Ketones [Negative] Negative (11/14/23 8:05 PM) Legionella Ag Ur [Negative] Negative (11/14/23 8:05 PM) HCO3 Venous [22.0-29.0 mmol/L] 30.5 mmol/L *HI* (11/14/23 7:03 PM) AST [13-39 IntlUnit/L] 23 IntlUnit/L (11/14/23 7:03 PM) ALT [7-52 IntlUnit/L] 13 IntlUnit/L (11/14/23 7:03 PM) MCHC [32.0-37.0 g/dL] 32.1 g/dL (11/16/23 6:20 AM) 32.3 g/dL (11/15/23 6:19 AM) 31.6 g/dL *LOW* (11/14/23 7:03 PM) Osmolality [275-295 mOsm/kg] 288 mOsm/kg (11/16/23 6:20 AM) 288 mOsm/kg (11/15/23 6:19 AM) 292 mOsm/kg (11/14/23 7:03 PM) Sodium Level [136-145 mmol/L] 140 mmol/L (11/16/23 6:20 AM) 140 mmol/L (11/15/23 6:19 AM) 140 mmol/L (11/14/23 7:03 PM) UA RBC [0-3] 0-3 (11/14/23 8:05 PM) UA Leuk Est [Negative] Negative (11/14/23 8:05 PM) Myelo Man 1 % *NA* (11/16/23 6:20 AM) UA Nitrite [Negative] Negative (11/14/23 8:05 PM) UA Glucose [Negative] >=1000 *ABN* (11/14/23 8:05 PM) Hct [37.0-47.0 %] 25.7 % *LOW* (11/16/23 6:20 AM) 25.6 % *LOW* (11/15/23 6:19 AM) 28.9 % *LOW* (11/14/23 7:03 PM) Microcyte 1+ *ABN* (11/14/23 7:03 PM) UA Bacteria [None Seen] None Seen (11/14/23 8:05 PM) Elliptocyte 1+ *ABN* (11/14/23 7:03 PM) Hypochromia 1+ *ABN* (11/16/23 6:20 AM) 1+ *ABN* (11/15/23 6:19 AM) 1+ *ABN* (11/14/23 7:03 PM) Calcium Level [8.6-10.3 mg/dL] 8.3 mg/dL *LOW* (11/16/23 6:20 AM) 8.3 mg/dL *LOW* (11/15/23 6:19 AM) 8.6 mg/dL (11/14/23 7:03 PM) Albumin Level [3.5-5.7 g/dL] 3.5 g/dL (11/14/23 7:03 PM) Protein Total [6.4-8.9 g/dL] 7.4 g/dL (11/14/23 7:03 PM) UA Protein [Negative] Negative (11/14/23 8:05 PM) Poik 1+ *ABN* (11/16/23 6:20 AM) 2+ *ABN* (11/14/23 7:03 PM) MCH [27.0-31.0 pg] 28.1 pg (11/16/23 6:20 AM) 28.3 pg (11/15/23 6:19 AM) 28.3 pg (11/14/23 7:03 PM) Magnesium Level [1.9-2.7 mg/dL] 2.5 mg/dL (11/14/23 7:03 PM) Bilirubin Total [0.3-1.0 mg/dL] 0.8 mg/dL (11/14/23 7:03 PM) Hgb [12.0-16.0 g/dL] 8.3 g/dL *LOW* (11/16/23 6:20 AM) 8.3 g/dL *LOW* (11/15/23 6:19 AM) 9.1 g/dL *LOW* (11/14/23 7:03 PM) Alk Phos [34-104 IntlUnit/L] 86 IntlUnit/L (11/14/23 7:03 PM) UA Blood [Negative] Trace *ABN* (11/14/23 8:05 PM) MPV [7.4-10.4 fL] 8.5 fL (11/16/23 6:20 AM) 8.7 fL (11/15/23 6:19 AM) 8.6 fL (11/14/23 7:03 PM) pCO2 Addison [42.0-53.0 mmHg] 46.0 mmHg (11/14/23 7:03 PM) UA Mucous [None Seen] Present *ABN* (11/14/23 8:05 PM) Band Man 3 % *NA* (11/16/23 6:20 AM) 1 % *NA* (11/15/23 6:19 AM) 15 % *NA* (11/14/23 7:03 PM) UA Spec Grav [1.001-1.030] 1.010 (11/14/23 8:05 PM) Polychrom 1+ *ABN* (11/16/23 6:20 AM) Platelets [130-400 K/mcL] 124 K/mcL *LOW* (11/16/23 6:20 AM) 156 K/mcL (11/15/23 6:19 AM) 199 K/mcL (11/14/23 7:03 PM) CO2 [21-31 mmol/L] 27 mmol/L (11/16/23 6:20 AM) 29 mmol/L (11/15/23 6:19 AM) 27 mmol/L (11/14/23 7:03 PM) Lactic Acid Lvl [0.5-2.2 mmol/L] 1.2 mmol/L (11/14/23 7:03 PM) UA Squam Epithelial [0-3] 0-3 (11/14/23 8:05 PM) UA pH [5.00-9.00] 6.00 (11/14/23 8:05 PM) pH Addison [7.32-7.43 pH unit(s)] 7.43 pH unit(s) (11/14/23 7:03 PM) BNP [<=100 pg/mL] 230 pg/mL *HI* (11/14/23 7:03 PM) UA Appear [Clear] Clear (11/14/23 8:05 PM) Chloride Level [98-107 mmol/L] 106 mmol/L (11/16/23 6:20 AM) 102 mmol/L (11/15/23 6:19 AM) 103 mmol/L (11/14/23 7:03 PM) Procalcitonin [0.00-0.05 ng/mL] 0.22 ng/mL 2 *HI* (11/14/23 7:03 PM) RDW-CV [11.5-14.5 %] 15.8 % *HI* (11/16/23 6:20 AM) 15.6 % *HI* (11/15/23 6:19 AM) 15.8 % *HI* (11/14/23 7:03 PM) A/G Ratio [1.0-2.5 g/dL] 0.9 g/dL *LOW* (11/14/23 7:03 PM) BUN/Creat Ratio [8.0-20.0] 23.8 *HI* (11/16/23 6:20 AM) 19.3 (11/15/23 6:19 AM) 20.0 (11/14/23 7:03 PM) Globulin [2.3-3.5 g/dL] 3.9 g/dL *HI* (11/14/23 7:03 PM) Ovalocytes 1+ *ABN* (11/14/23 7:03 PM) Spherocyte 1+ (11/14/23 7:03 PM) Plt Giant Few *ABN* (11/14/23 7:03 PM) Slide Review Man Diff (11/16/23 6:20 AM) Man Diff (11/15/23 6:19 AM) Man Diff (11/14/23 7:03 PM) UA Culture Ind?. [No] No (11/14/23 8:05 PM) Urine Srce Straight Cath (11/14/23 8:05 PM) Abs Baso Man [0.0-0.2 K/mcL] 0.0 K/mcL (11/16/23 6:20 AM) 0.0 K/mcL (11/15/23 6:19 AM) 0.0 K/mcL (11/14/23 7:03 PM) Abs Eos Man [0.0-0.2 K/mcL] 0.5 K/mcL *HI* (11/16/23 6:20 AM) 0.0 K/mcL (11/15/23 6:19 AM) 0.0 K/mcL (11/14/23 7:03 PM) Abs Lymph Man [1.2-3.4 K/mcL] 1.2 K/mcL (11/16/23 6:20 AM) 1.6 K/mcL (11/15/23 6:19 AM) 1.2 K/mcL (11/14/23 7:03 PM) Abs Davie Man [0.1-0.6 K/mcL] 1.2 K/mcL *HI* (11/16/23 6:20 AM) 2.1 K/mcL *HI* (11/15/23 6:19 AM) 0.5 K/mcL (11/14/23 7:03 PM) Abs Neut Man [1.4-6.5 K/mcL] 14.2 K/mcL *HI* (11/16/23 6:20 AM) 12.7 K/mcL *HI* (11/15/23 6:19 AM) 15.3 K/mcL *HI* (11/14/23 7:03 PM) Anisocyte 1+ (11/14/23 7:03 PM) Creatinine Level [0.60-1.20 mg/dL] 1.30 mg/dL *HI* (11/16/23 6:20 AM) 1.40 mg/dL *HI* (11/15/23 6:19 AM) 1.50 mg/dL *HI* (11/14/23 7:03 PM) Plt Estimation Normal (11/16/23 6:20 AM) Normal (11/15/23 6:19 AM) Normal (11/14/23 7:03 PM) Troponin-I HS [<=12 ng/L] 14 ng/L 3 *HI* (11/14/23 7:03 PM) SARS-CoV-2(Covid19)PCR(GXpe rt COVFLURSV) [Negative] Negative (11/14/23 7:24 PM) Flu A (GXpert COVFLURSV) [Negative] Negative (11/14/23 7:24 PM) RSV (GXpert COVFLURSV) [Negative] Negative (11/14/23 7:24 PM) Flu B (GXpert COVFLURSV) [Negative] Negative (11/14/23 7:24 PM) Anion Gap [3.0-12.0] 7.0 (11/16/23 6:20 AM) 9.0 (11/15/23 6:19 AM) 10.0 (11/14/23 7:03 PM) Baso Man [0.0-0.8 %] 0.0 % (11/16/23 6:20 AM) 0.0 % (11/15/23 6:19 AM) 0.0 % (11/14/23 7:03 PM) Streptococcus Pneumonia Antigen [Negative] Negative (11/14/23 8:05 PM) eGFR CKD-EPI [>=60 mL/min/1.73 m2] 42 mL/min/1.73 m2 *LOW* (11/16/23 6:20 AM) 39 mL/min/1.73 m2 *LOW* (11/15/23 6:19 AM) 35 mL/min/1.73 m2 *LOW* (11/14/23 7:03 PM) 1Interpretive Data: THERAPEUTIC INR RANGES FOR WARFARIN Uncomplicated venous thromboembolic disease 2-3 Lupus Anticoagulant and recurrent thrombosis 3-3.5 Mechanical prosthetic valve or recurrent thrombosis 2.5-3.5 2Interpretive Data: The normal range for PCT is <0.5 ng/mL. Levels >2.00 ng/mL indicate a highrisk of severe sepsis. Concentrations between 0.5 and 2.0 ng/mL should be interpreted according to the patient's history and clinical impression. It is recommended to retest PCT within 6-24 hours for any concentrations <2.00 ng/mL. 3Interpretive Data: [facility] ACCESS high-sensitivity Troponin [...] heart disease from those who do not. Orders for Microbiology Reports Name Date Blood Culture 11/14/23 Blood Culture 11/14/23 Microbiology Reports TEST:Blood Culture STATUS:Order in Progress BODY SITE:Left Arm SOURCE:Blood COLLECTED DATE/TIME:11/14/23 8:44 PM PRELIMINARY REPORT No growth at 2 days. TEST:Blood Culture STATUS:Order in Progress BODY SITE:Right Arm SOURCE:Blood COLLECTED DATE/TIME:11/14/23 8:43 PM PRELIMINARY REPORT No growth at 2 days. Radiology Reports * Exam Date Time Procedure Performing Provider Status 11/14/23 7:[address] Head w/o Contrast Isabel Torres; Auth (Verified) Notes: (CT Head w/o Contrast) Reason For Exam: AMS CT Head w/o Contrast PROCEDURE INFORMATION: Exam: CT Head Without Contrast Exam date and time: 11/14/2023 7:45 PM Age: 78 years old Clinical indication: Altered mental status / memory loss TECHNIQUE: Imaging protocol: Computed tomography of the head without contrast. Radiation optimization: All CT scans at this facility use at least one of these dose optimization techniques: automated exposure control; mA and/or kV adjustment per patient size (includes targeted exams where dose is matched to clinical indication); or iterative reconstruction. COMPARISON: CT HEAD WWO CONTRAST 08/15/2022 1:24 PM FINDINGS: Brain: No acute intracranial hemorrhage. Diffuse cerebral atrophy. Stable 8 mm meningioma along the right posterior tentorium with small amount of calcification. Cerebral ventricles: Ventricular prominence in this patient with diffuse cerebral atrophy. Paranasal sinuses: No significant disease of the paranasal sinuses. Mastoid air cells: Normally aerated mastoid air cells. Bones/joints: Unremarkable for patient age. Soft tissues: Unremarkable. Vasculature: Arterial calcifications. IMPRESSION: No acute intracranial findings - no acute interval change compared to 08/15/2022. THIS DOCUMENT HAS BEEN ELECTRONICALLY SIGNED BY ELIEL ANDREWS MD on 11/14/2023 08:53 PM Final Signed by: Eliel Andrews MD Signed (Electronic Signature): 11/14/2023 8:53 pm * Exam Date Time Procedure Performing Provider Status 11/14/23 7:[address] Chest w/o Contrast Isabel Torres; Auth (Verified) Notes: (CT Chest w/o Contrast) Reason For Exam: SOB, hypoxia, ? pneumonia CT Chest w/o Contrast PROCEDURE INFORMATION: Exam: CT Chest Without Contrast; Diagnostic Exam date and time: 11/14/2023 7:39 PM Age: 78 years old Clinical indication: Shortness of breath; Additional info: SOB, hypoxia, ? pneumonia TECHNIQUE: Imaging protocol: Diagnostic computed tomography of the chest without contrast. Radiation optimization: All CT scans at this facility use at least one of these dose optimization techniques: automated exposure control; mA and/or kV adjustment per patient size (includes targeted exams where dose is matched to clinical indication); or iterative reconstruction. COMPARISON: CT CHEST WO CONTRAST 11/11/2022 8:24 PM FINDINGS: Lungs: Multifocal consolidative and peribronchovascular nodular opacities with a greater predominance in the right lung. This has similar distribution to the episode seen on 11/11/2022, and some component of these opacities could be scarring related to the previous episode. However there is also suspicion for an acute airspace disease. Unchanged 5 mm nodule in the left lower lobe (series 3, image 38). Given the stability since 11/11/2022, no additional follow-up is required per Fleischner society guidelines. Pleural spaces: No pleural effusion or pneumothorax. Heart: Heart size is within normal limits. No pericardial effusion. Aortic valve replacement. Moderate coronary artery calcifications. Lymph nodes: Small mediastinal lymph nodes are similar to prior. Vasculature: Normal caliber of the thoracic aorta. Extensive atherosclerotic calcifications. Gallbladder and bile ducts: Cholelithiasis. No acute inflammatory changes. Kidneys and ureters: Scarring in the left kidney. Bones/joints: Median sternotomy status post wire fixation. No acute fracture. Degenerative changes in the spine. Soft tissues: Unremarkable. IMPRESSION: Bilateral pulmonary opacities, [id number], most consistent with an acute infectious/inflammatory etiology, possibly superimposed on scarring related to the episode seen on 11/11/2022. THIS DOCUMENT HAS BEEN ELECTRONICALLY SIGNED BY HANY SIEGEL MD on 11/14/2023 08:25 PM Final Signed by: Hany iSegel MD Signed (Electronic Signature): 11/14/2023 8:25 pm * Exam Date Time Procedure Performing Provider Status 11/14/23 7:08 PM XR Chest 1 View Isabel Torres; Auth (Verified) Notes: (XR Chest 1 View) Reason For Exam: SOB, hypoxia XR Chest 1 View PROCEDURE INFORMATION: Exam: XR Chest Exam date and time: 11/14/2023 7:06 PM Age: 78 years old Clinical indication: Shortness of breath and other: Hypoxia; Additional info: SOB, hypoxia TECHNIQUE: Imaging protocol: Radiologic exam of the chest. Views: 1 view. COMPARISON: CR XR CHEST SINGLE VIEW 11/11/2023 10:47 AM FINDINGS: Tubes, catheters and devices: EKG leads. Lungs: No acute consolidation. Pleural spaces: No substantial pleural effusion. No convincing pneumothorax. Heart/Mediastinum: Heart size is within normal limits. Aortic valve replacement. Bones/joints: Median sternotomy status post wire fixation. Degenerative changes in the shoulders. IMPRESSION: No acute consolidation. THIS DOCUMENT HAS BEEN ELECTRONICALLY SIGNED BY HANY SIEGEL MD on 11/14/2023 08:17 PM Final Signed by: Hany Siegel MD Signed (Electronic Signature): 11/14/2023 8:17 pm Vital Signs Most recent to oldest [Reference Range]: 1 2 3 Temperature Tympanic [36.6-38.1 Deg C] 36.8 Deg C (11/14/23 6:41 PM) Temperature Temporal Artery [36-38 Deg C] 36.4 Deg C (11/16/23 1:35 PM) 36.6 Deg C (11/16/23 7:57 AM) 37.2 Deg C (11/16/23 2:45 AM) Temperature Temporal Artery (DegF) [97.3-100 Deg F] 97.88 Deg F (11/15/23 4:19 AM) Peripheral Pulse Rate [60-100 bpm] 85 bpm (11/16/23 1:35 PM) 97 bpm (11/16/23 7:57 AM) 99 bpm (11/16/23 2:45 AM) Heart Rate Monitored [60-100 bpm] 96 bpm (11/15/23 1:21 PM) 99 bpm (11/14/23 9:30 PM) 96 bpm (11/14/23 9:15 PM) Respiratory Rate [12-24 br/min] 17 br/min (11/16/23 1:35 PM) 17 br/min (11/16/23 7:57 AM) 28 br/min *HI* (11/15/23 6:50 PM) Blood Pressure [90-140/60-90 mmHg] 129/52mmHg (1/8/24 1:35 PM) 146/60mmHg *HI* (11/16/23 7:57 AM) 135/59mmHg (11/16/23 2:45 AM) Mean Arterial Pressure, Cuff [70-110 mmHg] 75 mmHg (11/15/23 4:48 PM) 83 mmHg (11/15/23 4:19 AM) 100 mmHg (11/14/23 9:30 PM) Mean Arterial Pressure Cuff 96 mmHg (11/14/23 9:30 PM) 96 mmHg (11/14/23 9:15 PM) 89 mmHg (11/14/23 9:00 PM) Blood Pressure Location Left arm (11/16/23 2:45 AM) Left arm (11/15/23 7:40 PM) Left arm (11/15/23 4:48 PM) Blood Pressure Method Automatic (11/16/23 2:45 AM) Automatic (11/15/23 7:40 PM) Automatic (11/15/23 4:48 PM) Weight 93.8 kg (11/15/23 4:39 AM) 94 kg (11/14/23 10:52 PM) 101.5 kg (11/14/23 10:50 PM) Weight Dosing 101.500 kg (11/14/23 6:41 PM) Height 165.10 cm (11/14/23 10:52 PM) 165 cm (11/14/23 10:50 PM) 165 cm (11/14/23 6:41 PM) BSA Measured 2.08 m2 (11/14/23 10:52 PM) BSA Estimated 0 m2 (11/14/23 10:52 PM) Body Mass Index 34.49 kg/m2 (11/14/23 10:52 PM) 37.28 kg/m2 (11/14/23 10:50 PM) 37.28 kg/m2 (11/14/23 6:41 PM) Social History Social History Type Response Tobacco Never tobacco user T obacco Use:. 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 Katlyn Hallman, DO 08/12/22 Non Biological Knee L Device Identifier Serial Number Lot or Batch Number Manufacturing Date Expiration Date Distinct Identification Code MRI Safety Implantable Status Assigning Authority Unknown NA [id number] Unknown 08/07/24 Unknown Unknown Active Unknown Unknown N/A [id number] Unknown 06/10/32 Unknown Unknown Active Unknown Unknown NA [id number] Unknown 04/01/27 Unknown Unknown Active Unknown Unknown N/A [id number] Unknown 12/07/31 Unknown Unknown Active Unknown Unknown N/A [id number] Unknown 12/15/26 Unknown Unknown Active Unknown Hospital Discharge Instructions Patient Education 11/16/2023 12:56:23 Community-Acquired Pneumonia, Adult Community-Acquired Pneumonia, Adult Pneumonia is a lung infection that causes inflammation and the buildup of mucus and fluids in the lungs. This may cause coughing and difficulty breathing. Community-acquired pneumonia is pneumonia that develops in people who are not, and have not recently been, in a hospital or other health care facility. Usually, pneumonia develops as a result of an illness that is caused by a virus, such as the commoncold and the flu (influenza). It can also be caused by bacteria or fungi. While the common cold andinfluenza can pass from person to person (are contagious), pneumonia itself is not considered contagious. What are the causes? This condition may be caused by: ??? Viruses. ??? Bacteria. ??? Fungi, such as molds or mushrooms. What increases the risk? The following factors may make you more likely to develop this condition: ??? Having certain medical conditions, such as: ??? A long-term (chronic) disease, which may include chronic obstructive pulmonary disease (COPD), asthma, heart failure, cystic fibrosis, diabetes, kidney disease, sickle cell disease, and human immunodeficiency virus (HIV). ??? A condition that increases the risk of breathing in (aspirating) mucus and other fluids from your mouth and nose. ??? A weakened body defense system (immune system). ??? Having had your spleen removed (splenectomy). The spleen is the organ that helps fight germs and infections. ??? Not cleaning your teeth and gums well (poor dental hygiene). ??? Using tobacco products. ??? Traveling to places where germs that cause pneumonia are present. ??? Being near certain animals, or animal habitats, that have germs that cause pneumonia. ??? Being older than 65 years of age. What are the signs or symptoms? Symptoms of this condition include: ??? A dry cough or a wet (productive) cough. ??? A fever. ??? Sweating or chills. ??? Chest pain, especially when breathing deeply or coughing. ??? Fast breathing, difficulty breathing, or shortness of breath. ??? Tiredness (fatigue). ??? Muscle aches. How is this diagnosed? This condition may be diagnosed based on your medical history or a physical exam. You may also havetests, including: ??? Chest X-rays. ??? Tests of the level of oxygen and other gases in your blood. ??? Tests of: ??? Your blood. ??? Mucus from your lungs (sputum). ??? Fluid around your lungs (pleural fluid). ??? Your urine. If your pneumonia is severe, other tests may be done to learn more about the cause. How is this treated? Treatment for this condition depends on many factors, such as the cause of your pneumonia, your medicines, and other medical conditions that you have. For most adults, pneumonia may be treated at home. In some cases, treatment must happen in a hospital and may include: ??? Medicines that are given by mouth (orally) or through an IV, including: ??? Antibiotic medicines, if bacteria caused the pneumonia. ??? Medicines that kill viruses (antiviral medicines), if a virus caused the pneumonia. ??? Oxygen therapy. Severe pneumonia, although rare, may require the following treatments: ??? Mechanical ventilation.This procedure uses a machine to help you breathe if you cannot breathe well on your own or maintain a safe level of blood oxygen. ??? Thoracentesis. This procedure removes any buildup of pleural fluid to help with breathing. Follow these instructions at home: Medicines ??? Take nlmu-xzj-uddqeou and prescription medicines only as told by your health care provider. ??? Take cough medicine only if you have trouble sleeping. Cough medicine can prevent your body from removing mucus from your lungs. ??? If you were prescribed an antibiotic medicine, take it as told by your health care provider. Donot stop taking the antibiotic even if you start to feel better. Lifestyle ??? Do not drink alcohol. ??? Do not use any products that contain nicotine or tobacco, such as cigarettes, e-cigarettes, andchewing tobacco. If you need help quitting, ask your health care provider. ??? Eat a healthy diet. This includes plenty of vegetables, fruits, whole grains, low-fat dairy products, and lean protein. General instructions ??? Rest a lot and get at least 8 hours of sleep each night. ??? Sleep in a partly upright position at night. Place a few pillows under your head or sleep in a reclining chair. ??? Return to your normal activities as told by your health care provider. Ask your health care provider what activities are safe for you. ??? Drink enough fluid to keep your urine pale yellow. This helps to thin the mucus in your lungs. ??? If your throat is sore, gargle with a salt???water mixture 3???4 times a day or as needed. To make a salt???water mixture, completely dissolve ?1 tsp (3???6 g) of salt in 1 cup (237 mL) of warm water. ??? Keep all follow-up visits as told by your health care provider. This is important. How is this prevented? You can lower your risk of developing community-acquired pneumonia by: ??? Getting the pneumonia vaccine. There are different types and schedules of pneumonia vaccines. Ask your health care provider which option is best for you. Consider getting the pneumonia vaccine if: ??? You are older than 65 years of age. ??? You are 19???65 years of age and are receiving cancer treatment, have chronic lung disease, or have other medical conditions that affect your immune system. Ask your health care provider if this applies to you. ??? Getting your influenza vaccine every year. Ask your health care provider which type of vaccine is best for you. ??? Getting regular dental checkups. ??? Washing your hands often with soap and water for at least 20 seconds. If soap and water are notavailable, use hand special education administrator. Contact a health care provider if you have: ??? A fever. ??? Trouble sleeping because you cannot control your cough with cough medicine. Get help right away if: ??? Your shortness of breath becomes worse. ??? Your chest pain increases. ??? Your sickness becomes worse, especially if you are an older adult or have a weak immune system. ??? You cough up blood. These symptoms may represent a serious problem that is an emergency. Do not wait to see if the symptoms will go away. Get medical help right away. Call your local emergency services (911 in the [place] Do not drive yourself to the hospital. Summary ??? Pneumonia is an infection of the lungs. ??? Community-acquired pneumonia develops in people who have not been in the hospital. It can be caused by bacteria, viruses, or fungi. ??? This condition may be treated with antibiotics or antiviral medicines. ??? Severe pneumonia may require a hospital stay and treatment to help with breathing. This information is not intended to replace advice given to you by your health care provider. Make sure you discuss any questions you have with your health care provider. Document Revised: 08/07/2020 Document Reviewed: 08/07/2020 [employer] Patient Education ?? 2022 [employer]. 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 The following includes patient education materials and information regarding your injury/illness. Your Next Steps Follow Up Appointments Follow Up with??Mally Vazquez APRN When:??Within 1 month Why: Office will contact patient with follow up appointment Where: [address] [place] [phone] The Following Services Have Been Arranged for You Special Services and Community Resources - Meal delivery/preparation The Following Treatments Have Been Arranged for You Current Home Treatments - CPAP Medications What How Much When Why Instructions Next Dose New benzonatate (Tessalon Perles 100 mg oral capsule) 1 Capsules Oral (given by mouth) 3 times a day Duration: 7 Days Pickup at [facility] New doxycycline (doxycycline monohydrate 100 mg oral capsule) 1 Capsules Oral (given by mouth) 2 times a day Duration: 5 Days Pickup at [facility] New guaiFENesin (Mucinex 600 mg oral tablet, extended release) 2 tab Oral (given by mouth) 2 times a day Duration: 7 Days Pickup at [facility] Changed alendronate (alendronate 70 mg oral tablet) 1 tab Oral (given by mouth) Every Thursday Duration: 84 Days with 6-8 oz plain water, at least 30 minutes before first food, beverage, or medication of the day. Remain upright for at least 30 minutes after taking. ?? Changed calcium-vitamin D (Calcium 600+D 600 mg-200 intl units oral tablet) 1 tab Oral (given by mouth) Every morning Changed famotidine (famotidine 20 mg oral tablet) 1 tab Oral (given by mouth) 2 times a day Changed folic acid (folic acid 1 mg oral tablet) 1 tab Oral (given by mouth) Every morning Changed lansoprazole (lansoprazole 30 mg oral delayed release capsule) 1 Capsules Oral (given by mouth) Every morning 30 minutes before breakfast ?? Changed letrozole (letrozole 2.5 mg oral tablet) 1 tab Oral (given by mouth) Every morning Changed levothyroxine (levothyroxine 137 mcg (0.137 mg) oral tablet) 1 tab Oral (given by mouth) Every morning on an empty stomach ?? Changed losartan (losartan 100 mg oral tablet) 1 tab Oral (given by mouth) Every evening Changed multivitamin (multivitamin adult, oral tablet) 1 tab Oral (given by mouth) Every morning Changed ubiquinone (Coenzyme Q10 100 mg oral capsule) 1 Capsules Oral (given by mouth) Every morning Unchanged albuterol (Albuterol (Eqv-Proventil HFA) 90 mcg/ inh inhalation aerosol) 1 Puffs Inhale (breathe in) Every 4 hours as needed for as needed for wheezing Do not exceed 12 inhalations in a 24-hour period. ?? Unchanged ascorbic acid (Vitamin C 500 mg oral tablet) 1 tab Oral (given by mouth) Every day as needed for other (see comment) only during winter for immune support ?? Unchanged atorvastatin (atorvastatin 10 mg oral tablet) 1 tab Oral (given by mouth) Every evening Duration: 90 Days Unchanged cholecalciferol (Vitamin D3 1000 intl units oral tablet) 1 tab Oral (given by mouth) Every morning 1000 units = 25 mcg ?? Unchanged DME RESP Oxygen Therapy (HOME OXYGEN [...] Oral (given by mouth) Every morning Unchanged furosemide (furosemide 40 mg oral tablet) 1 tab Oral (given by mouth) Every morning Unchanged gabapentin (gabapentin 100 mg oral capsule) 1 Capsules Oral (given by mouth) Every day Duration: 90 Days Unchanged lactobacillus acidophilus (Acidophilus) 1 tab Oral (given by mouth) Every morning Unchanged metoprolol (metoprolol tartrate 25 mg oral tablet) 1 tab Oral (given by mouth) 2 times a day Duration: 90 Days Unchanged One Touch Ultra Test Strips (Please provide one touch ultra test strips) See instructions Diabetes For blood glucose monitoring once daily. ?? Pharmacy Information [facility]: [address] [place] [address] [phone] Your Summary Your Care Team Admitting Physician - Lauren Gomez APRN Attending Physician - David Flores MD Primary Care Physician - Mally Vazquez APRN Your Diagnosis Pneumonia CHF exacerbation NOVA (acute kidney injury) Diabetes mellitus type 2 Idiopathic thrombocytopenia Weakness Problems Ongoing - Any problem that you [...] GERD - Gastro-esophageal reflux disease Tests Performed/Pending .Manual Differential (LTTL) Blood Gas Venous BMP BNP C-Reactive Protein CBC w/ Diff Comprehensive Metabolic Panel Glucose POCT High SensitivityTroponin-I Lactic Acid Legionella Antigen Urine Magnesium Level Procalcitonin PT/ INR SARS-CoV-2 (COVID-19)/Flu/RSV (GeneXpert) Sputum Culture?-- Results Pending -- Streptococcus Pneumoniae Antigen Urine Urinalysis Microscopic Urinalysis with Micro if Indicated and Culture if Indicated CT Chest w/o Contrast CT Head w/o Contrast XR Chest 1 View Discharge Vitals Temperature??(Temporal Artery) 97.5 ??F (36.4 ??C) Heart Rate??(Peripheral) 85 Respiratory Rate?? 17 Blood Pressure?? 129/52?? Allergies Flomax??(Dizziness) narcotic analgesics sulfa drugs??(Rash, Hallucinations) Education Materials Community-Acquired Pneumonia, Adult Pneumonia is a lung infection that causes inflammation and the buildup of mucus and fluids in the lungs. This may cause coughing and difficulty breathing. Community-acquired pneumonia is pneumonia that develops in people who are not, and have not recently been, in a hospital or other health care facility. Usually, pneumonia develops as a result of an illness that is caused by a virus, such as the commoncold and the flu (influenza). It can also be caused by bacteria or fungi. While the common cold andinfluenza can pass from person to person (are contagious), pneumonia itself is not considered contagious. What are the causes? This condition may be caused by: ? Viruses. ? Bacteria. ? Fungi, such as molds or mushrooms. What increases the risk? The following factors may make you more likely to develop this condition: ? Having certain medical conditions, such as: ? A long-term (chronic) disease, which may include chronic obstructive pulmonary disease (COPD), asthma, heart failure, cystic fibrosis, diabetes, kidney disease, sickle cell disease, and human immunodeficiency virus (HIV). ? A condition that increases the risk of breathing in (aspirating) mucus and other fluids from your mouth and nose. ? A weakened body defense system (immune system). ? Having had your spleen removed (splenectomy). The spleen is the organ that helps fight germs and infections. ? Not cleaning your teeth and gums well (poor dental hygiene). ? Using tobacco products. ? Traveling to places where germs that cause pneumonia are present. ? Being near certain animals, or animal habitats, that have germs that cause pneumonia. ? Being older than 65 years of age. What are the signs or symptoms? Symptoms of this condition include: ? A dry cough or a wet (productive) cough. ? A fever. ? Sweating or chills. ? Chest pain, especially when breathing deeply or coughing. ? Fast breathing, difficulty breathing, or shortness of breath. ? Tiredness (fatigue). ? Muscle aches. How is this diagnosed? This condition may be diagnosed based on your medical history or a physical exam. You may also havetests, including: ? Chest X-rays. ? Tests of the level of oxygen and other gases in your blood. ? Tests of: ? Your blood. ? Mucus from your lungs (sputum). ? Fluid around your lungs (pleural fluid). ? Your urine. If your pneumonia is severe, other tests may be done to learn more about the cause. How is this treated? Treatment for this condition depends on many factors, such as the cause of your pneumonia, your medicines, and other medical conditions that you have. For most adults, pneumonia may be treated at home. In some cases, treatment must happen in a hospital and may include: ? Medicines that are given by mouth (orally) or through an IV, including: ? Antibiotic medicines, if bacteria caused the pneumonia. ? Medicines that kill viruses (antiviral medicines), if a virus caused the pneumonia. ? Oxygen therapy. Severe pneumonia, although rare, may require the following treatments: ? Mechanical ventilation.This procedure uses a machine to help you breathe if you cannot breathe wellon your own or maintain a safe level of blood oxygen. ? Thoracentesis. This procedure removes any buildup of pleural fluid to help with breathing. Follow these instructions at home: Medicines ? Take fryj-llo-pkiukdl and prescription medicines only as told by your health care provider. ? Take cough medicine only if you have trouble sleeping. Cough medicine can prevent your body from removing mucus from your lungs. ? If you were prescribed an antibiotic medicine, take it as told by your health care provider. Do notstop taking the antibiotic even if you start to feel better. Lifestyle ? Do not drink alcohol. ? Do not use any products that contain nicotine or tobacco, such as cigarettes, e- cigarettes, and chewing tobacco. If you need help quitting, ask your health care provider. ? Eat a healthy diet. This includes plenty of vegetables, fruits, whole grains, low-fat dairy products, and lean protein. General instructions ? Rest a lot and get at least 8 hours of sleep each night. ? Sleep in a partly upright position at night. Place a few pillows under your head or sleep in a reclining chair. ? Return to your normal activities as told by your health care provider. Ask your health care provider what activities are safe for you. ? Drink enough fluid to keep your urine pale yellow. This helps to thin the mucus in your lungs. ? If your throat is sore, gargle with a salt???water mixture 3???4 times a day or as needed. To make a salt???water mixture, completely dissolve ?1 tsp (3???6 g) of salt in 1 cup (237 mL) of warm water. ? Keep all follow-up visits as told by your health care provider. This is important. How is this prevented? You can lower your risk of developing community-acquired pneumonia by: ? Getting the pneumonia vaccine. There are different types and schedules of pneumonia vaccines. Ask your health care provider which option is best for you. Consider getting the pneumonia vaccine if: ? You are older than 65 years of age. ? You are 19???65 years of age and are receiving cancer treatment, have chronic lung disease, or haveother medical conditions that affect your immune system. Ask your health care provider if this applies to you. ? Getting your influenza vaccine every year. Ask your health care provider which type of vaccine is best for you. ? Getting regular dental checkups. ? Washing your hands often with soap and water for at least 20 seconds. If soap and water are not available, use hand special education administrator. Contact a health care provider if you have: ? A fever. ? Trouble sleeping because you cannot control your cough with cough medicine. Get help right away if: ? Your shortness of breath becomes worse. ? Your chest pain increases. ? Your sickness becomes worse, especially if you are an older adult or have a weak immune system. ? You cough up blood. These symptoms may represent a serious problem that is an emergency. Do not wait to see if the symptoms will go away. Get medical help right away. Call your local emergency services (911 in the [place] Do not drive yourself to the hospital. Summary ? Pneumonia is an infection of the lungs. ? Community-acquired pneumonia develops in people who have not been in the hospital. It can be causedby bacteria, viruses, or fungi. ? This condition may be treated with antibiotics or antiviral medicines. ? Severe pneumonia may require a hospital stay and treatment to help with breathing. This information is not intended to replace advice given to you by your health care provider. Make sure you discuss any questions you have with your health care provider. Document Revised: 08/07/2020 Document Reviewed: 08/07/2020 [employer] Patient Education ?? 2022 [employer]. Medication Information benzonatate?? (hesham clifton) ? What is the most important information I should know about benzonatate? Never suck or chew on a benzonatate capsule. ??Swallow the pill whole. Sucking or chewing the capsule may cause serious side effects. ?? Benzonatate is not approved for use by anyone younger than 10 years old. ??An overdose of benzonatate can be fatal to a young child. ? What is benzonatate? Benzonatate is used to relieve coughing. ? Benzonatate is a non-narcotic cough medicine that numbs the throat and lungs, making the cough reflex less active. ?? Benzonatate may also be used for purposes not listed in this medication guide. ?? What should I discuss with my healthcare provider before taking benzonatate? You should not use this medicine if you are allergic to benzonatate or topical numbing medicines such as tetracaine or procaine (found in some insect bite and sunburn creams). ?? Tell your doctor if you are or . ?? Benzonatate is not approved for use by anyone younger than 10 years old. ??An overdose of benzonatate can be fatal, especially to a young child who has accidentally swallowed the medicine. ? How should I take benzonatate? Follow all directions on your prescription label and read all medication guides or instruction sheets. ??Use the medicine exactly as directed. ?? Never suck or chew on a benzonatate capsule. ??Swallow the pill whole. Sucking or chewing the capsule may cause serious side effects. ?? Store at room temperature away from moisture, heat, and light. ?? What happens if I miss a dose? Skip the missed dose and use your next dose at the regular time. ??Do not??use two doses at one time. ?? What happens if I overdose? Seek emergency medical attention or call the Poison Help line at . ??An overdose of benzonatate can be fatal, especially to a child.?Accidental has occurred in children under 10 years old. ?? Overdose symptoms may include tremors, feeling restless, seizure (convulsions), slow heart rate, weak pulse, fainting, and slow breathing (breathing may stop). ?? What should I avoid while taking benzonatate? Avoid eating or drinking anything while you feel numbness or tingling in your mouth or throat. ?? What are the possible side effects of benzonatate? Stop taking this medicine and get emergency medical help if you have??signs of an allergic reaction: ??hives; difficult breathing; swelling of your face, lips, tongue, or throat. ?? Call your doctor at once if you have: ?severe drowsiness or dizziness; ?confusion, hallucinations. ?ongoing numbness or tingling in your mouth, throat, or face; ?numbness in your chest;?a choking feeling; ?chills; or ?burning in your eyes. ?? Some of these side effects may result from chewing or sucking on a benzonatate capsule. ?? Common side effects may include: ?headache, dizziness; ?nausea, upset stomach; ?constipation; ?itching, rash; or ?stuffy nose. ?? This is not a complete list of side effects and others may occur. Call your doctor for medical advice about side effects. You may report side effects to FDA at 3-538-QHV-5580. ?? What other drugs will affect benzonatate? Using benzonatate with other drugs that make you drowsy can worsen this effect. ??Ask your doctor before using opioid medication, a sleeping pill, a muscle relaxer, or medicine for anxiety or seizures. ?? Other drugs may affect benzonatate, including prescription and dgqg-ttp-heviwhk medicines, vitamins, and herbal products. ??Tell your doctor about all your current medicines and any medicine you start or stop using. ?? Where can I get more information? Your pharmacist can provide more information about benzonatate. ?? Remember, keep this and all other medicines out of the reach of children, never share your medicines with others, and use this medication only for the indication prescribed. ?? Every effort has been made to ensure that the information provided by [employer]. [employer] is accurate, up-to-date, and complete, but no guarantee is made to that effect. Drug information contained herein may be time sensitive. [employer] information has been compiled for use by healthcare practitioners and consumers in the [place] and therefore [employer] does not warrant that uses outside of the [place] are appropriate, unless specifically indicated otherwise. [employer] drug information does not endorse drugs, diagnose patients or recommend therapy. [employer] drug information isan informational resource designed to [...] effective or appropriate for any given patient. [facility] does not assume any responsibility for any aspect of healthcare administered with the aid of information [employer] provides. The information contained herein is not intended to cover all possible uses, directions, precautions, warnings, drug interactions, allergic reactions, or adverse effects. If you have questions about the drugs you are taking, check with your doctor, nurse or pharmacist.? Copyright [id number] [facility] [employer]. Version: 09.09. Revision Date: 06/11/2023. ?? guaifenesin?? (gwye FEN e sin) ?? Allfen, Bidex-400, Diabetic Tussin Chest Congestion, Fenesin IR, Ly-Tussin Expectorant, Max Tussin Mucus + Chest Congestion Sugar Free, Mucinex, Mucinex Fast-Max Chest Congestion, Mucinex Kids' Mini-Melts, Mucinex Max Strength, Mucus and Chest Congestion, Mucus Relief, Mucus Relief ER, Mucus Relief Maximum Strength, Robafen, Scot-Tussin Expectorant Cough, Siltussin SA, Tusnel Ex, Tussin Mucus +Chest Congestion? What is the most important information I should know about guaifenesin? Ask a doctor or pharmacist before using this medicine if you have health problems or use other medications, or if you are or breast-feeding. ?? What is guaifenesin? Guaifenesin is used to reduce chest congestion caused by the common cold, flu, or chronic bronchitis. ?? Guaifenesin helps loosen congestion in your chest and throat, making it easier to cough out throughyour mouth. ?? There are many brands and forms of guaifenesin available. ??Not all brands are listed on this leaflet. ?? Guaifenesin may also be used for purposes not listed in this medication guide. ?? What should I discuss with my healthcare provider before taking guaifenesin? You should not use guaifenesin if you are allergic to it. ?? Ask a doctor or pharmacist if it is safe for you to use this medicine if you have other medical conditions. ?? Ask a doctor before using this medicine if you are . ?? You should not breast-feed while using guaifenesin. ?? How should I take guaifenesin? Use exactly as directed on the label, or as prescribed by your doctor. Cold or cough medicine is only for short-term use until your symptoms clear up. ?? Always follow directions on the medicine label about giving cough or cold medicine to a child. ??Donot use the medicine only to make a child sleepy.? can occur from the misuse of cough or cold medicines in very young children.? Measure??liquid medicine??carefully. Use the dosing syringe provided, or use a medicine dose-measuring device (not a kitchen spoon). ?? To use guaifenesin??granules,??pour out the entire packet onto your tongue and swallow without chewing.? Call your doctor if your symptoms do not improve after 7 days, or if you have a fever, rash, or headaches. ?? This medicine can affect the results of certain medical tests. ??Tell any doctor who treats you that you are using guaifenesin. ?? Store at room temperature away from moisture and heat. ??Do not freeze. ?? What happens if I miss a dose? Since cough or cold medicine is used when needed, you may not be on a dosing schedule. Skip any missed dose if it's almost time for your next dose. ??Do not??use two doses at one time.? What happens if I overdose? Seek emergency medical attention or call the Poison Help line at . ?? What should I avoid while taking guaifenesin? Ask a doctor or pharmacist before using other cough or cold medicines that may contain similar ingredients.? Avoid driving or hazardous activity until you know how this medicine will affect you. ??Your reactions could be impaired. ?? What are the possible side effects of guaifenesin? Get emergency medical help if you have??signs of an allergic reaction: ??hives; difficult breathing; swelling of your face, lips, tongue, or throat. ?? Common side effects may include: ?nausea; or ?vomiting. ?? This is not a complete list of side effects and others may occur. Call your doctor for medical advice about side effects. You may report side effects to FDA at 2-273-PET-6490. ?? What other drugs will affect guaifenesin ? Avoid using this medicine with other drugs that cause drowsiness or slow your breathing (such as opioid medicine, a muscle relaxer, or medicine for anxiety or seizures). ??Ask a doctor or pharmacist before using any other medication, including prescription and ajmy-yuu-xjjtkhz medicines, vitamins, and herbal products. ?Not all possible drug interactions are listed in this medication guide.? Where can I get more information? Your pharmacist can provide more information about guaifenesin. ?? Remember, keep this and all other medicines out of the reach of children, never share your medicines with others, and use this medication only for the indication prescribed. ?? Every effort has been made to ensure that the information provided by [employer]. ('[employer]') is accurate, up-to-date, and complete, but no guarantee is made to that effect. Drug information contained herein may be time sensitive. [employer] information has been compiled for use by healthcare practitioners and consumers in the [place] and therefore [employer] does not warrant that uses outside of the [place] are appropriate, unless specifically indicated otherwise. [employer] drug information does not endorse drugs, diagnose patients or recommend therapy. [employer] drug information isan informational resource designed to [...] effective or appropriate for any given patient. [employer] does not assume any responsibility for any aspect of healthcare administered with the aid of information [employer] provides. The information contained herein is not intended to cover all possible uses, directions, precautions, warnings, drug interactions, allergic reactions, or adverse effects. If you have questions about the drugs you are taking, check with your doctor, nurse or pharmacist.? Copyright 6612-6741 [employer]. Version: 07.11. Revision Date: 10/29/2023. ?? doxycycline (oral/injection)?? (DOX benjamin silav) ?? Acticlate, Adoxa, Alodox, Avidoxy, Doryx, Doryx MPC, Lymepak, Mondoxyne NL, Monodox, Morgidox, Morgidox 2c430sp, Morgidox 5h657vh, Okebo, Oracea, Targadox, Vibramycin, Vibramycin Monohydrate? What is the most important information I should know about doxycycline? You should not take this medicine if you are allergic to any tetracycline antibiotic. ?? Children younger than 8 years old should use doxycycline only in cases of severe or life-threatening conditions. ??This medicine can cause permanent yellowing or graying of the teeth in children ?? Using doxycycline during could harm the unborn baby or cause permanent tooth discoloration later in the baby's life.? What is doxycycline? Doxycycline is a tetracycline antibiotic that? Doxycycline is used to treat many different bacterial infections, such as acne, urinary tract infections, intestinal infections, eye infections, gonorrhea, chlamydia, periodontitis (gum disease), andothers. ? Doxycycline is also used to treat blemishes, bumps, and acne-like lesions caused by rosacea. ??Doxycycline will not treat facial redness caused by rosacea. ?? Some forms of doxycycline are used to prevent malaria, to treat anthrax, or to treat infections caused by mites, ticks, or lice. ?? Doxycycline may also be used for purposes not listed in this medication guide. ?? What should I discuss with my healthcare provider before taking doxycycline? You should not take this medicine if you are allergic to doxycycline or other tetracycline antibiotics such as demeclocycline, minocycline, tetracycline, or tigecycline. ?? Tell your doctor if you have ever had: ?liver disease; ?kidney disease;?asthma or sulfite allergy;?increased pressure inside your skull; or ?if you also take isotretinoin, seizure medicine, or a blood thinner such as warfarin (Coumadin).? If you are using doxycycline to treat gonorrhea, your doctor may test you to make sure you do not also have syphilis, another sexually transmitted disease. ?? Taking this medicine during may affect tooth and bone development in the unborn baby.?Taking doxycycline during the last half of can cause permanent tooth discoloration later in the baby's life. ??Tell your doctor if you are or if you become . ?? Doxycycline can make control pills less effective. Ask your doctor about using a non-hormonalbirth control (condom, diaphragm with spermicide) to prevent . ?? Doxycycline can pass into breast milk and may affect bone and tooth development in a nursing infant. ??Do not breastfeed while you are taking doxycycline. ?? Doxycycline can cause permanent yellowing or graying of the teeth in children younger than 8 years old. ??Children should use doxycycline only in cases of severe or life-threatening conditions such as anthrax or Morrice spotted fever. ??The benefit of treating a serious condition may outweigh any risks to the child's tooth development.? How should I take doxycycline? Follow all directions on your prescription label and read all medication guides or instruction sheets. ??Use the medicine exactly as directed. ?? Take doxycycline with a full glass of water. ??Drink plenty of liquids while you are taking doxycycline.? Read and carefully follow any Instructions for Use provided with your medicine.?Ask your doctor or pharmacist if you do not understand these instructions. ?? Most brands of doxycyline may be taken with food or milk if the medicine upsets your stomach. ? Different brands of doxycycline may have different instructions about taking them with or without food. ?? Take??Oracea??on an empty stomach, at least 1 hour before or 2 hours after a meal. ?? You may need to split a doxycycline tablet to get the correct dose. ??Follow your doctor's instructions. ?? Swallow a??delayed-release capsule or tablet??whole. Do not crush, chew, break, or open it. ?? Measure??liquid medicine??with the dosing syringe provided, or with a special dose-measuring spoon or medicine cup. If you do not have a dose-measuring device, ask your pharmacist for one. ?? If you take doxycycline to prevent malaria:?Start taking the medicine 1 or 2 days before entering an area where malaria is common. ??Continue taking the medicine every day during your stay and forat least 4 weeks after you leave the area. ? Doxycycline is usually??given by injection??only if you are unable to take the medicine by mouth. ??A healthcare provider will give you this injection as an infusion into a vein. ? Use this medicine for the full prescribed length of time, even if your symptoms quickly improve. ??Skipping doses can increase your risk of infection that is resistant to medication. ??Doxycycline will not treat a viral infection such as the flu or a common cold. ?? Store at room temperature away from moisture, heat, and light. ?? Throw away any unused medicine after the expiration date on the label has passed. ??Using doxycycline can cause damage to your kidneys. ?? What happens if I miss a dose? Take the medicine as soon as you can, but skip the missed dose if it is almost time for your next dose.??Do not??take two doses at one time.? What happens if I overdose? Seek emergency medical attention or call the Poison Help line at . ?? What should I avoid while taking doxycycline? Do not take iron supplements, multivitamins, calcium supplements, antacids, or laxatives within 2 hours before or after taking doxycycline. ?? Avoid taking any other antibiotics with doxycycline unless your doctor has told you to. ? Doxycycline could make you sunburn more easily. ??Avoid sunlight or tanning beds. Wear protective clothing and use sunscreen (SPF 30 or higher) when you are outdoors. ?? Antibiotic medicines can cause diarrhea, which may be a sign of a new infection. ??If you have diarrhea that is watery or bloody, call your doctor.?Do not use anti-diarrhea medicine unless your doctor tells you to. ?? What are the possible side effects of doxycycline? Get emergency medical help if you have??signs of an allergic reaction??(hives, difficult breathing,swelling in your face or throat)??or a severe skin reaction??(fever, sore throat, burning in your eyes, skin pain, red or purple skin rash that spreads and causes blistering and peeling). ?? Seek medical treatment if you have a serious drug reaction that can affect many parts of your body.?Symptoms may include: ??skin rash, fever, swollen glands, flu-like symptoms, muscle aches, severe weakness, unusual bruising, or yellowing of your skin or eyes. ??This reaction may occur several weeks after you began using doxycycline. ?? Call your doctor at once if you have: ?severe stomach pain, diarrhea that is watery or bloody; ?throat irritation, trouble swallowing; ?chest pain, irregular heart rhythm, feeling short of breath; ?little or no urination; ?low white blood cell counts--fever, chills, swollen glands, body aches, weakness, pale skin, easy bruising or bleeding;?increased pressure inside the skull--severe headaches, ringing in your ears, dizziness, nausea,vision problems, pain behind your eyes; or ?signs of liver or pancreas problems--loss of appetite, upper stomach pain (that may spread to your back), tiredness, nausea or vomiting, fast heart rate, dark urine, jaundice (yellowing of the skin or eyes). ?? Common side effects may include: ?nausea, vomiting, upset stomach, loss of appetite; ?mild diarrhea; ?skin rash or itching;?darkened skin color; or ?vaginal itching or discharge. ?? This is not a complete list of side effects and others may occur. Call your doctor for medical advice about side effects. You may report side effects to FDA at 4-089-LNS-0866. ?? What other drugs will affect doxycycline? Sometimes it is not safe to use certain medications at the same time.?Some drugs can affect yourblood levels of other drugs you take, which may increase side effects or make the medications less effective. ? Other drugs may affect doxycycline, including prescription and dakg-vyt-lheshnd medicines, vitamins, and herbal products. ??Tell your doctor about all your current medicines and any medicine you start or stop using. ?? Where can I get more information? Your pharmacist can provide more information about doxycycline. ?? Remember, keep this and all other medicines out of the reach of children, never share your medicines with others, and use this medication only for the indication prescribed. ?? Every effort has been made to ensure that the information provided by [employer]. ('[employer]') is accurate, up-to-date, and complete, but no guarantee is made to that effect. Drug information contained herein may be time sensitive. [employer] information has been compiled for use by healthcare practitioners and consumers in the [place] and therefore [employer] does not warrant that uses outside of the [place] are appropriate, unless specifically indicated otherwise. [employer] drug information does not endorse drugs, diagnose patients or recommend therapy. [employer] drug information isan informational resource designed to [...] effective or appropriate for any given patient. [employer] does not assume any responsibility for any aspect of healthcare administered with the aid of information [employer] provides. The information contained herein is not intended to cover all possible uses, directions, precautions, warnings, drug interactions, allergic reactions, or adverse effects. If you have questions about the drugs you are taking, check with your doctor, nurse or pharmacist.? Copyright [id number] [employer]. Version: 25.. Revision Date: 07/15/2023. ? Patient/Network Technical Analyst Signature Patient Name:HENRIETTA DRAPER I have received this information and my questions have been answered. Patient/Network Technical Analyst Name: Patient/Network Technical Analyst Signature: Relationship to Patient: Witness Name/Signature: Date: Electronically Signed on: 11/16/2023 14:38 ESTSigned by:ANNE MARIE * Event Display: Discharge Instructions Nutrition and dietetics Progress note * Kerry Joseph: PERFORM Event Display: Nutrition Note Authored Date: [id number] Assessment and Monitoring ?? Reason for Referral:??home diet low sodium/carb ?? Usual Body Weight: ~high 90kg-low 100kg Weight Change: no significant changes noted. Skin: intact Edema: trace edema ?? Chewing/Swallowing: no known issues ? Nutrition Assessment: ?? 78 yo F admit with SOB/AMS. PMH significant for DM,??CKD 3, HTN. HLD.??DX: CHF exacerbation and PNA. On IV ABT. Received IV Lasix with??results- stopped d/t kidney fx and BP dropped. went to??talked to her today but couldn't stop coughing. staff reports??dry cough all morning. patient thought may make self throw up, gave her??vomit bag in case. Nursing made aware. can try to come back later- patient??known from outpatient/inpatient admissions. ?d/c later today. ? No significant weight changes noted. On Jardiance for DM- blood sugars 140s- 150s. no acute issues noted. Monitoring. ?? Monitor/Evaluation:?? Nutrition Goals Euvolemic weight POs >75% of meals labs wnl No s/sx hyper,hypogylcemia Nutrition Interventions Con carb diet diet edu. prn ?? Anthropometrics/Estimated Needs Kesrsr56.8 kg(Recorded: 11/15/2023 04:39 EST) Htabpk614.10 cm(Recorded: 11/14/2023 22:52 EST) Body Mass Index34.49 kg/m2(Recorded: 11/14/2023 22:52 EST) Estimated Energy Needs: 1880-2350kcal (20-25kcal/kg actual BW) Estimated Fluid Needs: 1880-2350ml (1ml/kcal) Estimated Protein Needs: 75-94g (.8-1.0g/kg actual BW) Reason for Visit shortness of breath, AMS Problem List/Past Medical History Ongoing Acquired hypothyroidism [...] Mother and Father. Diet Orders Diet Order, 11/14/23 22:12:00 EST, Consistent Carbohydrates Allergies Flomax??(Dizziness) narcotic analgesics sulfa drugs??(Rash, Hallucinations) Nutrition Lab Results Test Name Test Result Date/Time WBC 17.3 K/mcL 11/16/2023 06:20 EST Hgb 8.3 g/dL 11/16/2023 06:20 EST Hct 25.7 % 11/16/2023 06:20 EST MCV 87.6 fL 11/16/2023 06:20 EST Platelets 124 K/mcL 11/16/2023 06:20 EST INR 1.0 11/14/2023 19:03 EST Sodium Level 140 mmol/L 11/16/2023 06:20 EST Potassium Level 4.6 mmol/L 11/16/2023 06:20 EST Chloride Level 106 mmol/L 11/16/2023 06:20 EST CO2 27 mmol/L 11/16/2023 06:20 EST Alk Phos 86 IntlUnit/L 11/14/2023 19:03 EST ALT 13 IntlUnit/L 11/14/2023 19:03 EST BUN 31 mg/dL 11/16/2023 06:20 EST Glucose Level 128 mg/dL 11/16/2023 06:20 EST Creatinine Level 1.30 mg/dL 11/16/2023 06:20 EST Albumin Level 3.5 g/dL 11/14/2023 19:03 EST Bilirubin Total 0.8 mg/dL 11/14/2023 19:03 EST Magnesium Level 2.5 mg/dL 11/14/2023 19:03 EST Medications Inpatient acetaminophen, 650 mg= 2 tab, Oral, every 4 hr, PRN albuterol, 2.5 mg= 3 mL, Nebulized Inhalation, every 3 hr ([facility]), PRN atorvastatin, 10 mg= 1 tab, Oral, every evening benzocaine-menthol lozenge, 1 lozenges, Mucous Membrane, 6 times per day, PRN cefTRIAXone, 1 g= 50 mL, IV Piggyback, Daily Dextrose 50% injection, 25 g= 50 mL, IV Push, As Directed docusate-senna 50 mg-8.6 mg oral tablet, 1 tab, Oral, BID doxycycline, 100 mg= 1 cap, Oral, BID famotidine, 20 mg= 1 tab, Oral, Daily folic acid, 1 mg= 1 tab, Oral, Daily glucagon, 1 mg= 1 EA, Subcutaneous, As Directed insulin aspart Sliding Scale - Low Dose, Insulin Aspart Sliding Scale See Comments, Subcutaneous, AC Jardiance, 10 mg= 1 tab, Oral, every morning lactobacillus acidophilus oral capsule, 1 cap, Oral, Daily levothyroxine, 112 mcg= 1 tab, Oral, Daily levothyroxine, 25 mcg= 1 tab, Oral, Daily Lovenox, 40 mg= 0.4 mL, Subcutaneous, Daily Metoprolol Tartrate, 25 mg= 1 tab, Oral, BID Mucinex, 1200 mg= 2 tab, Oral, BID ondansetron, 4 mg= 2 mL, IV Push, every 6 hr, PRN pantoprazole, 40 mg= 1 tab, Oral, Daily potassium chloride, 40 mEq= 2 tab, Oral, BID Tessalon Perles, 100 mg= 1 cap, Oral, TID Home Acidophilus, 1 tab, Oral, every morning [...] tab, Oral, every morning Electronically Signed on 11/16/23 11:03 AM Kerry Joseph Progress note * David Flores MD: PERFORM Event Display: Progress Note - Physician Authored Date: [id number] HENRIETTA DRAPER :1945 Age:78 years Sex:Female Visit Date:11/14/2023 Primary Care Physician: Mally Vazquez APRN Subjective States she feels much better than yesterday Review of Systems Constitutional:??No fevers overnight Respiratory:??No shortness of breath Cardiovascular:??No Chest pain Gastrointestinal:??No nausea, vomiting, diarrhea Musculoskeletal:??No new joint pain Objective Vitals & Measurements T:??36.1?C ??(Temporal Artery)?? TMIN:??36.0?C ??(Temporal Artery)?? TMAX:??36.8?C ??(Tympanic)?? HR:??96??(Monitored)?? RR:??20?? BP:??96/38?? SpO2:??98%?? HT:??165.10??cm?? WT:??93.8??kg?? BMI:??34.49?? Pain Score:??0?? O2 Flow Rate:??3?? O2 Therapy:??Nasal cannula?? BSA:??2.08?? Physical Exam General:??Alert and oriented, No acute distress Eye:??PERRL, EOMI, normal conjunctiva Lungs:??Clear to auscultation and percussion, Non-labored respiration Heart:??Normal rate, Normal rhythm, No murmur, No gallop Abdomen:??Soft, non-tender, non-distended, normal bowel sounds, no masses Bilateral mild leg edema Lab Results Labs??(Last four charted values) WBC ?H??16.5?(NOV 15)?H??17.0?(NOV 14) Hgb ?L??8.3?(NOV 15)?L??9.1?(NOV 14) Hct ?L??25.6?(NOV 15)?L??28.9?(NOV 14) Plt ?156?(NOV 15)?199?(NOV 14) Na ?140?(NOV 15)?140?(NOV 14) K ?3.5?(NOV 15)?4.3?(NOV 14) CO2 ?29?(NOV 15)?27?(NOV 14) Cr ?H??1.40?(NOV 15)?H??1.50?(NOV 14) BUN ?H??27?(NOV 15)?H??30?(NOV 14) Glucose Random ?H??159?(NOV 15)?H??210?(NOV 14) PT ?10.4?(NOV 14) INR ?1.0?(NOV 14) Diagnostic Results Medications (21) Active Scheduled: (18) Albuterol-ipratropium Neb Dot 3 mL [LTTL] ??3 mL, Nebulized Inhalation, every 6 hr (hui) Atorvastatin 10 mg Tab [LTTL] ??10 mg 1 tab, Oral, every evening cefTRIAXone ??1 g 50 mL, IV Piggyback, Daily Dextrose 50% Inj 50 mL Syringe [LTTL] ??25 g 50 mL, IV Push, As Directed Doxycycline 100 mg Cap [LTTL] ??100 mg 1 cap, Oral, BID Empagliflozin 10 mg Tab [LTTL] ??10 mg 1 tab, Oral, every morning Enoxaparin 40 mg/0.4 mL Inj Syr [LTTL] ??40 mg 0.4 mL, Subcutaneous, Daily Famotidine 20 mg Tab [LTTL] ??20 mg 1 tab, Oral, Daily Folic Acid 1 mg Tab [LTTL] ??1 mg 1 tab, Oral, Daily Glucagon 1 mg Inj ??[LTTL] ??1 mg 1 EA, Subcutaneous, As Directed Guaifenesin 600 mg ER Tab [LTTL] ??1,200 mg 2 tab, Oral, BID Insulin aspart 100 units/mL Inj 3 ml Pen [LTTL] ??Insulin Aspart Sliding Scale See Comments, Subcutaneous, AC Lactobacillus Acidophilus Cap [LTTL] ??1 cap, Oral, Daily Levothyroxine 112 mcg Tab [LTTL] ??112 mcg 1 tab, Oral, Daily Levothyroxine 25 mcg Tab [LTTL] ??25 mcg 1 tab, Oral, Daily Metoprolol Tartrate 25 mg Tab [LTTL] ??25 mg 1 tab, Oral, BID Pantoprazole 40 mg Tab [LTTL] ??40 mg 1 tab, Oral, Daily Senna-Docusate 8.6 mg-50 mg Tab [LTTL] ??1 tab, Oral, BID Continuous: (0) PRN: (3) Acetaminophen 325 mg Tab [LTTL] ??650 mg 2 tab, Oral, every 4 hr Albuterol ??2.5 mg/3 ml Neb Dot 3 mL [LTTL] ??2.5 mg 3 mL, NEB, every 3 hr (hui) Ondansetron 2 mg/mL Inj 2 ml Vial [LTTL] ??4 mg 2 mL, IV Push, every 6 hr Assessment/Plan 1.??Pneumonia??J18.9 Continuing??for bacterial coverage with??Doxy and ceftriaxone though??uncertain if she has a viral infection 2.??CHF exacerbation??I50.9 Likely fairly euvolemic??though I suspect she always has some fluid that she can get off but??bloodpressure and kidneys limit that.?? Today we??held her fluids and gave her her oral Lasix??and she had some asymptomatic hypotension. ??Will reassess given it tomorrow 3.??NOVA (acute kidney injury)??N17.9 Creatinine 1.4??which is not much from her baseline??suspect??infection related NOVA that is very mild 4.??Diabetes mellitus type 2??E11.9 Blood sugar 159 5.??Idiopathic thrombocytopenia??D69.3 Platelets are normal, she is on Lovenox 6.??Weakness??R53.1 Orders: famotidine, 20 mg = 1 tab, Oral, Tab, Daily, First Dose: 11/15/23 9:00:00 EST, Routine Electronically Signed on 11/15/23 02:58 PM David Flores MD History and physical note * Lauren Gomez APRN: PERFORM, MODIFY, MODIFY, MODIFY, MODIFY, MODIFY Event Display: History and Physical Authored Date: [id number] HENRIETTA DRAPER :1945 Age:78 years Sex:Female Visit Date:11/14/2023 Primary Care Physician: Mally Vazquez APRN Chief Complaint shortness of breath, AMS History of Present Illness Henrietta is a 78-year-old female with multiple medical problems, including a 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 Family notes mild altered mental status. ?? She was seen in the ED??2 days ago??with similar symptoms. ??Chest x-ray reported no active disease.?? Respiratory panel was negative.?? She had some??hypoxia??noted??but was??a questionable pleth. ??She was able to??ambulate with staff??with normal saturations on room air??and was discharged home, thought to be viral illness. ?? She denies anorexia and has been eating and drinking. Denies any chest pain, nausea, vomiting, abdominal pain, melena or bloody stools, or dysuria. Denies any worsening edema. No orthopnea or PND. ?? Patient states she has been compliant with current medication regimen. Family concurs. ?? In the ED: CT chest reports bilateral pulmonary opacities, [id number]-left, most consistent with an??acute infectious/inflammatory etiology, possibly superimposed on scarring??related to the episode seen on 11/11/2022.?? CXR - reports no active disease CT head - no acute intracranial process Labs: Leukocytosis 17. Lymphopenia 7. Hgb 9.1, which has been stable x 1 month. Creatinine 1.5, baseline appears to be around 1.2.??Normal lactic. Normal troponin. BNP 230. Plts 199 U/A negative. Respiratory panel negative. EKG Sinus tachycardia, IVCD, 1mm JARROD inferiorly with no reciprocal ST depressions. QTc prolonged 534 msecs. ?? Tx: Lasix 40 mg IVP. Ceftriaxone and Doxycycline. NS. ?? Review of Systems Constitutional: + Chills, + Generalized weakness. + Altered mental status (per family). No sweats or documented fevers Eye: No visual disturbances ENNT: + Sore throat. No ear pain, nasal congestion, or stiff neck Respiratory:??+ Shortness of breath and non-productive cough Cardiovascular: No chest pain, palpitations, or syncope Gastrointestinal: No nausea, vomiting, diarrhea, dark or bloody stools, constipation,??or anorexia Genitourinary: No hematuria, burning or frequency Gonzalo/Lymph: No bruising tendency or swollen lymph glands Endocrine: No excessive thirst/hunger or heat/cold intolerance Musculoskeletal: No joint pain, muscle pain,??or decreased range of motion Integumentary: No rash, pruritus, abrasions or ulcerations Neurologic: No confusion, speech/swallow difficulty, or limb weakness/paralysis Psychiatric: No anxiety, depression, or suicide/homicide ideation ?? Physical Exam Vitals & Measurements T:??36.6?C ??(Temporal Artery)?? TMIN:??36.6?C ??(Temporal Artery)?? TMAX:??36.8?C ??(Tympanic)?? HR:??98??(Peripheral)?? RR:??21?? BP:??119/64?? SpO2:??96%?? HT:??165.10??cm?? WT:??94??kg?? BMI:??34.49?? Pain Score:??0?? O2 Flow Rate:??4?? O2 Therapy:??Nasal cannula?? BSA:??2.08?? General: Alert, a little clouded and vague at times, in no acute distress Eye: PERRL, EOMI, normal conjunctiva, no scleral icterus HENT: Normocephalic, semi-dry oral mucosa Neck: Supple, non-tender, negative for carotid bruits, JVD, and lymphadenopathy Lungs: Coarse breath sounds and egophony over posterior right base and right middle lobes, and leftbase. Some anterior crackles bilaterally, R>L. Non-labored respirations Heart: Normal rate, regular rhythm, soft systolic murmur over aortic valve, no rub, gallop, S3 or S4 Peripheral: Pulses 3+ and symmetric, cap refill < 3 secs, trace BLE edema, no calf tenderness Abdomen: Soft, non-tender, normal bowel sounds, no rebound, guarding, or masses Musculoskeletal: Normal range of motion and strength Skin: [place], warm, dry, no rashes or??lesions Neurologic: Awake, alert, a little clouded and vague at times, CN II-XII intact, motor and sensory intact Psychiatric: Cooperative, appropriate mood and affect ?? Assessment/Plan 1.??Pneumonia??J18.9 Suspect viral etiology with lymphopenia, normal lactate and absence of fever, but will cover empirically for possible bacterial component. Ceftriaxone and Doxycycline (prolonged QTc). Negative covid, flu, and RSV. Check strep pneumo and legionella, sputum culture, CRP, and procalcitonin. Scheduled and as needed nebulizers. O2 supplementation. Mucinex. Incentive spirometry. Follow up blood cultures ?? 2.??CHF exacerbation??I50.9 Trace leg swelling, at baseline per patient and family. No reported pulmonary edema on CT. BNP elevated at 230, in the setting of CKD. Troponin negative, No chest pain or EKG changes, unlikely ACS. She did receive Lasix 40 mg IV in the ED with a diuresis of 1500 mls.?? Will order home dose of oral lasix for now??and defer to attending regarding changes to??diuretics??pending urine output, O2 requirements, and creatinine. ?? 3.??NOVA (acute kidney injury)??N17.9 Creatinine 1.5, baseline around 1.2. Suspect prerenal azotemia in the setting of acute illness and diuretics. Will give gentle hydration overnight given 1.5L U/O in ED. Recheck creatinine in am. Avoid NSAIDS and known nephrotoxic agents. Pharmacy to renal dose medications. ?? 4.??Diabetes mellitus type 2??E11.9 Continue Jardiance. Blood glucose checks AC/HS. Low dose SSI. Consistent carb diet. ?? 5.??Idiopathic thrombocytopenia??D69.3 Not in flare. Platelets 199K. ?? 6.??Weakness??R53.1 Generalized, non-focal. Suspect from acute illness and deconditioning. PT eval. ? Full code ?? DVT prophy - lovenox ? Emergency contact - Laura Figueroa (son). [phone] Other contact - Tamia Hopkins (daughter) [phone] ? Orders: acetaminophen, 650 mg = 2 tab, Oral, Tab, every 4 hr for 30 days, PRN fever, First Dose: 11/14/23 22:12:00 EST, Stop Date: 12/14/23 22:11:00 EST, Physician Stop, Routine albuterol, 1.25 mg = 3 mL, NEB, Soln, every 3 hr (hui) for 30 days, PRN shortness of breath, First Dose: 11/14/23 22:12:00 EST, Stop Date: 12/14/23 22:11:00 EST, Physician Stop, Routine atorvastatin, 10 mg = 1 tab, Oral, Tab, every evening, First Dose: 11/14/23 23:15:00 EST, Routine cefTRIAXone, 1 g = 50 mL, IV Piggyback, Injection, Daily, Antibiotic Indication Pneumonia, Administer over: 30 minutes, First Dose: 11/15/23 21:00:00 EST, Routine, 100 mL/hr citalopram, 20 mg = 1 tab, Oral, Tab, Daily, First Dose: 11/15/23 9:00:00 EST, Routine docusate-senna 50 mg-8.6 mg oral tablet, 1 tab, Oral, Tab, BID for 30 days, First Dose: 11/15/23 9:00:00 EST, Stop Date: 12/15/23 8:59:00 EST, Physician Stop, Routine doxycycline, 100 mg = 1 cap, Oral, Cap, BID, Antibiotic Indication Pneumonia, First Dose: 11/15/23 9:00:00 EST, Stop Date: 12/16/23 9:00:00 EST, Physician Stop, Routine Jardiance, 10 mg = 1 tab, Oral, Tab, every morning, First Dose: 11/15/23 9:00:00 EST, Routine Lovenox, 40 mg = 0.4 mL, Subcutaneous, Injection, Daily for 30 days, First Dose: 11/15/23 9:00:00 EST, Stop Date: 12/15/23 8:59:00 EST, Physician Stop, Routine famotidine, 20 mg = 1 tab, Oral, Tab, Daily, First Dose: 11/15/23 9:00:00 EST, Routine folic acid, 1 mg = 1 tab, Oral, Tab, Daily, First Dose: 11/15/23 9:00:00 EST, Routine gabapentin, 100 mg = 1 cap, Oral, Cap, Daily, First Dose: 11/15/23 9:00:00 EST, Routine glucagon, 1 mg = 1 EA, Subcutaneous, Injection, As Directed, First Dose: 11/15/23 0:59:00 EST, Physician Stop, Routine Dextrose 50% injection, 25 g = 50 mL, IV Push, Injection, As Directed, First Dose: 11/15/23 0:59:00EST, Physician Stop, Routine Mucinex, 1,200 mg = 2 tab, Oral, Tab-ER, BID for 30 days, First Dose: 11/15/23 9:00:00 EST, Stop Date: 12/15/23 8:59:00 EST, Physician Stop, Routine insulin aspart Sliding Scale - Low Dose, Insulin Aspart Sliding Scale See Comments, Subcutaneous, Injection, AC, First Dose: 11/15/23 7:30:00 EST, Routine ipratropium-albuterol 0.5 mg-2.5 mg/3 mL inhalation solution, 3 mL, Nebulized Inhalation, Soln, every 6 hr (hui) for 3 doses, First Dose: 11/15/23 0:00:00 EST, Stop Date: 11/15/23 17:59:00 EST, Physician Stop, Routine LR 1,000 mL, Total Volume (mL): 1,000, 1,000 mL, Soln-IV, IV, 75 mL/hr, Order Duration: 30 days, Start Date: 11/14/23 23:40:00 EST, Stop Date: 12/14/23 23:39:00 EST, 101.5 kg, Populate Charting Weight From Order, 2.16, m2 lactobacillus acidophilus oral capsule, 1 cap, Oral, Cap, Daily, First Dose: 11/15/23 9:00:00 EST, Routine levothyroxine, 112 mcg = 1 tab, Oral, Tab, Daily for 30 days, First Dose: 11/15/23 6:30:00 EST, Stop Date: 12/15/23 6:29:00 EST, Physician Stop, Routine levothyroxine, 25 mcg = 1 tab, Oral, Tab, Daily, First Dose: 11/15/23 6:30:00 EST Metoprolol Tartrate, 25 mg = 1 tab, Oral, Tab, BID for 30 days, First Dose: 11/15/23 9:00:00 EST, Stop Date: 12/15/23 8:59:00 EST, Physician Stop, Routine ondansetron, 4 mg = 2 mL, IV Push, Vial, every 6 hr, PRN nausea/vomiting, First Dose: 11/14/23 22:12:00 EST, Routine, zofran pantoprazole, 40 mg = 1 tab, Oral, Tab-DR, Daily for 30 days, First Dose: 11/15/23 6:30:00 EST, Stop Date: 12/15/23 6:29:00 EST, Physician Stop, Routine Basic Metabolic Panel, Blood, Routine, 11/14/23 22:13:00 EST, Daily, for 3 days, Lab Collect Blood Glucose Monitoring POC RE, 11/15/23 0:59:00 EST, AC & bedtime CBC w/ Diff, Blood, Routine, 11/14/23 22:13:00 EST, Daily, for 3 days, Lab Collect Communication Order, 11/14/23 22:12:00 EST, Encourage early ambulation Diet Order, 11/14/23 22:12:00 EST, Consistent Carbohydrates Graduated Compression Stockings, 11/14/23 22:12:00 EST, Constant order, Knee high Incentive Spirometry Nursing, 11/14/23 22:12:00 EST Intake and Output, 11/14/23 22:12:00 EST, every 12 hr (hui), q shift, 11/15/23 9:00:00 EST Lactic Acid, Blood, Stat, 11/14/23 23:15:00 EST, Once, Lab Collect Patient Condition, 11/14/23 22:12:00 EST, Condition Good/ Stable Physical Therapy Evaluation and Treatment, 11/14/23 22:12:00 EST, Once PSO Admit to Inpatient, [facility], Inpatient, David Flores MD, 11/14/23 22:06:00 EST, 11/14/23 22:06:00 EST, 11/14/23 22:06:00 EST, Less than 96 hours Resuscitation Status, 11/14/23 22:12:00 EST, Full Code Sputum Culture, Sputum, Routine collect, RT - Routine, 11/14/23 22:12:00 EST, Once, Nurse collect Vital Signs, 11/14/23 22:12:00 EST, QID Weight, 11/15/23 5:00:00 EST, every 24 hr Images X-Ray: ?? XR Chest 1 View ?? 11/14/23 19:06:47 PROCEDURE INFORMATION: Exam: XR Chest Exam date and time: 11/14/2023 7:06 PM Age: 78 years old Clinical indication: Shortness of breath and other: Hypoxia; Additional info: SOB, hypoxia ?? TECHNIQUE: Imaging protocol: Radiologic exam of the chest. Views: 1 view. ?? COMPARISON: CR XR CHEST SINGLE VIEW 11/11/2023 10:47 AM ?? FINDINGS: Tubes, catheters and devices: EKG leads. ?? Lungs: No acute consolidation. Pleural spaces: No substantial pleural effusion. No convincing pneumothorax. Heart/Mediastinum: Heart size is within normal limits. Aortic valve replacement. Bones/joints: Median sternotomy status post wire fixation. Degenerative changes in the shoulders. ?? IMPRESSION: No acute consolidation. ? THIS DOCUMENT HAS BEEN ELECTRONICALLY SIGNED BY HANY SIEGEL MD on 11/14/2023 08:17 PM ?? Signed By: Hany Siegel MD Computed Tomography: ?? CT Chest w/o Contrast ?? 11/14/23 19:39:34 PROCEDURE INFORMATION: Exam: CT Chest Without Contrast; Diagnostic Exam date and time: 11/14/2023 7:39 PM Age: 78 years old Clinical indication: Shortness of breath; Additional info: SOB, hypoxia, ? pneumonia ?? TECHNIQUE: Imaging protocol: Diagnostic computed tomography of the chest without contrast. Radiation optimization: All CT scans at this facility use at least one of these dose optimization techniques: automated exposure control; mA and/or kV adjustment per patient size (includes targeted exams where dose is matched to clinical indication); or iterative reconstruction. ?? COMPARISON: CT CHEST WO CONTRAST 11/11/2022 8:24 PM ?? FINDINGS: Lungs: Multifocal consolidative and peribronchovascular nodular opacities with a greater predominance in the right lung. This has similar distribution to the episode seen on 11/11/2022, and some component of these opacities could be scarring related to the previous episode. However there is also suspicion for an acute airspace disease. Unchanged 5 mm nodule in the left lower lobe (series 3, image 38). Given the stability since 11/11/2022, no additional follow-up is required per Fleischner society guidelines. Pleural spaces: No pleural effusion or pneumothorax. Heart: Heart size is within normal limits. No pericardial effusion. Aortic valve replacement. Moderate coronary artery calcifications. Lymph nodes: Small mediastinal lymph nodes are similar to prior. Vasculature: Normal caliber of the thoracic aorta. Extensive atherosclerotic calcifications. ?? Gallbladder and bile ducts: Cholelithiasis. No acute inflammatory changes. Kidneys and ureters: Scarring in the left kidney. Bones/joints: Median sternotomy status post wire fixation. No acute fracture. Degenerative changes in the spine. Soft tissues: Unremarkable. ?? IMPRESSION: Bilateral pulmonary opacities, aqfys-fqtjjby-bxez-left, most consistent with an acute infectious/inflammatory etiology, possibly superimposed on scarring related to the episode seen on 11/11/2022. ? THIS DOCUMENT HAS BEEN ELECTRONICALLY SIGNED BY HANY SIEGEL MD on 11/14/2023 08:25 PM ?? Signed By: Hany Siegel MD ?? CT Head w/o Contrast ?? 11/14/23 19:45:01 PROCEDURE INFORMATION: Exam: CT Head Without Contrast Exam date and time: 11/14/2023 7:45 PM Age: 78 years old Clinical indication: Altered mental status / memory loss ?? TECHNIQUE: Imaging protocol: Computed tomography of the head without contrast. Radiation optimization: All CT scans at this facility use at least one of these dose optimization techniques: automated exposure control; mA and/or kV adjustment per patient size (includes targeted exams where dose is matched to clinical indication); or iterative reconstruction. ?? COMPARISON: CT HEAD WWO CONTRAST 08/15/2022 1:24 PM ?? FINDINGS: Brain: No acute intracranial hemorrhage. Diffuse cerebral atrophy. Stable 8 mm meningioma along the right posterior tentorium with small amount of calcification. Cerebral ventricles: Ventricular prominence in this patient with diffuse cerebral atrophy. Paranasal sinuses: No significant disease of the paranasal sinuses. Mastoid air cells: Normally aerated mastoid air cells. Bones/joints: Unremarkable for patient age. Soft tissues: Unremarkable. Vasculature: Arterial calcifications. ?? IMPRESSION: No acute intracranial findings - no acute interval change compared to 08/15/2022. ? THIS DOCUMENT HAS BEEN ELECTRONICALLY SIGNED BY ELIEL ANDREWS MD on 11/14/2023 08:53 PM ?? Signed By: Eliel Andrews MD Ultrasound:?? MRI:?? Echo:?? Nuclear Medicine:?? Mammography:? Bone Densitometry:?? Problem List/Past Medical History Ongoing Acquired hypothyroidism [...] abdominal hysterectomy and bilateral salpingo-oophorectomy Medications Inpatient acetaminophen, 650 mg= 2 tab, Oral, every 4 hr, PRN albuterol, 1.25 mg= 3 mL, Nebulized Inhalation, every 3 hr (hui), PRN atorvastatin, 10 mg= 1 tab, Oral, every evening cefTRIAXone, 1 g= 50 mL, IV Piggyback, Daily citalopram, 20 mg= 1 tab, Oral, Daily Dextrose 50% injection, 25 g= 50 mL, IV Push, As Directed docusate-senna 50 mg-8.6 mg oral tablet, 1 tab, Oral, BID doxycycline, 100 mg= 1 cap, Oral, BID famotidine, 20 mg= 1 tab, Oral, Daily folic acid, 1 mg= 1 tab, Oral, Daily gabapentin, 100 mg= 1 cap, Oral, Daily glucagon, 1 mg= 1 EA, Subcutaneous, As Directed insulin aspart Sliding Scale - Low Dose, Insulin Aspart Sliding Scale See Comments, Subcutaneous, AC ipratropium-albuterol 0.5 mg-2.5 mg/3 mL inhalation solution, 3 mL, Nebulized Inhalation, every 6 hr (hui) Jardiance, 10 mg= 1 tab, Oral, every morning lactobacillus acidophilus oral capsule, 1 cap, Oral, Daily levothyroxine, 112 mcg= 1 tab, Oral, Daily levothyroxine, 25 mcg= 1 tab, Oral, Daily Lovenox, 40 mg= 0.4 mL, Subcutaneous, Daily LR 1,000 mL, 1000 mL, IV Metoprolol Tartrate, 25 mg= 1 tab, Oral, BID Mucinex, 1200 mg= 2 tab, Oral, BID ondansetron, 4 mg= 2 mL, IV Push, every 6 hr, PRN pantoprazole, 40 mg= 1 tab, Oral, Daily Home Albuterol (Eqv-Proventil HFA) 90 mcg/inh inhalation aerosol, 1 puffs, Inhale, every 4 hr, PRN alendronate 70 mg oral tablet, 70 mg= 1 tab, Oral, every week, 1 refills atorvastatin 10 mg oral tablet, 10 mg= 1 tab, Oral, every evening, 3 refills Calcium 600+D 600 mg-200 intl units oral tablet, 1 tab, Oral, Daily citalopram 20 mg oral tablet, 20 mg= 1 tab, Oral, Daily Coenzyme Q10 100 mg oral capsule, 100 mg= 1 cap, Oral, Daily Diabetic footwear, See instructions famotidine 20 mg oral tablet, 20 mg= 1 tab, Oral, Daily folic acid 1 mg oral tablet, 1 mg= 1 tab, Oral, Daily furosemide 40 mg oral tablet, 1 tab, Oral, every morning gabapentin 100 mg oral capsule, 100 mg= 1 cap, Oral, Daily, 3 refills Jardiance 10 mg oral tablet, 1 tab, Oral, every morning lansoprazole 30 mg oral delayed release capsule, 30 mg= 1 cap, Oral, Daily letrozole 2.5 mg oral tablet, 2.5 mg= 1 tab, Oral, Daily levothyroxine 137 mcg (0.137 mg) oral tablet, See Instructions, 3 refills losartan 100 mg oral tablet, 1 tab, Oral, Daily metoprolol tartrate 25 mg oral tablet, 25 mg= 1 tab, Oral, BID, 3 refills multivitamin adult, oral tablet, 1 tab, Oral, Daily Celsion Colon Health oral capsule Please provide one touch ultra test strips, See instructions, 3 refills Allergies Flomax??(Dizziness) narcotic analgesics sulfa drugs??(Rash, Hallucinations) [...] 08/02/2022 Recorded Comments : RD done at [facility] Lot: [id number] exp: 05/08/2023 [employer] SARS-CoV-2 mRNA (toshainanamlucilan 12y+) bival 08/02/2022 Recorded Comments : Lot: [id number] Exp: 06/08/23 LD done at [facility] Lab Results Test Name Test Result Date/Time pH Addison 7.43 pH unit(s) 11/14/2023 19:03 EST pCO2 Addison 46.0 mmHg 11/14/2023 19:03 EST HCO3 Venous 30.5 mmol/L 11/14/2023 19:03 EST CO2 Total Venous 31.9 mmol/L 11/14/2023 19:03 EST WBC 17.0 K/mcL 11/14/2023 19:03 EST RBC 3.23 Million/mcL 11/14/2023 19:03 EST Hgb 9.1 g/dL 11/14/2023 19:03 EST Hct 28.9 % 11/14/2023 19:03 EST MCV 89.4 fL 11/14/2023 19:03 EST MCH 28.3 pg 11/14/2023 19:03 EST MCHC 31.6 g/dL 11/14/2023 19:03 EST RDW-CV 15.8 % 11/14/2023 19:03 EST Platelets 199 K/mcL 11/14/2023 19:03 EST MPV 8.6 fL 11/14/2023 19:03 EST Segs Man 75 11/14/2023 19:03 EST Lymph Man 7.0 % 11/14/2023 19:03 EST Davie Man 3.0 % 11/14/2023 19:03 EST Eos Man 0.00 % 11/14/2023 19:03 EST Baso Man 0.0 % 11/14/2023 19:03 EST Band Man 15 % 11/14/2023 19:03 EST Abs Neut Man 15.3 K/mcL 11/14/2023 19:03 EST Abs Lymph Man 1.2 K/mcL 11/14/2023 19:03 EST Abs Davie Man 0.5 K/mcL 11/14/2023 19:03 EST Abs Eos Man 0.0 K/mcL 11/14/2023 19:03 EST Abs Baso Man 0.0 K/mcL 11/14/2023 19:03 EST RBC Morph Abnormal 11/14/2023 19:03 EST Anisocyte 1+ 11/14/2023 19:03 EST Elliptocyte 1+ 11/14/2023 19:03 EST Hypochromia 1+ 11/14/2023 19:03 EST Microcyte 1+ 11/14/2023 19:03 EST Ovalocytes 1+ 11/14/2023 19:03 EST Plt Estimation Normal 11/14/2023 19:03 EST Plt Giant Few 11/14/2023 19:03 EST Poik 2+ 11/14/2023 19:03 EST Spherocyte 1+ 11/14/2023 19:03 EST Slide Review Man Diff 11/14/2023 19:03 EST Prothrombin Time 10.4 seconds 11/14/2023 19:03 EST INR 1.0 11/14/2023 19:03 EST Sodium Level 140 mmol/L 11/14/2023 19:03 EST Potassium Level 4.3 mmol/L 11/14/2023 19:03 EST Chloride Level 103 mmol/L 11/14/2023 19:03 EST CO2 27 mmol/L 11/14/2023 19:03 EST Alk Phos 86 IntlUnit/L 11/14/2023 19:03 EST AST 23 IntlUnit/L 11/14/2023 19:03 EST ALT 13 IntlUnit/L 11/14/2023 19:03 EST BUN 30 mg/dL 11/14/2023 19:03 EST Glucose Level 210 mg/dL 11/14/2023 19:03 EST Creatinine Level 1.50 mg/dL 11/14/2023 19:03 EST BUN/Creat Ratio 20.0 11/14/2023 19:03 EST eGFR CKD-EPI 35 mL/min/1.73 m2 11/14/2023 19:03 EST Calcium Level 8.6 mg/dL 11/14/2023 19:03 EST Protein Total 7.4 g/dL 11/14/2023 19:03 EST Albumin Level 3.5 g/dL 11/14/2023 19:03 EST Globulin 3.9 g/dL 11/14/2023 19:03 EST A/G Ratio 0.9 g/dL 11/14/2023 19:03 EST Bilirubin Total 0.8 mg/dL 11/14/2023 19:03 EST Anion Gap 10.0 11/14/2023 19:03 EST Lactic Acid Lvl 1.2 mmol/L 11/14/2023 19:03 EST Magnesium Level 2.5 mg/dL 11/14/2023 19:03 EST Osmolality 292 mOsm/kg 11/14/2023 19:03 EST CRP 206.6 mg/L 11/14/2023 19:03 EST BNP 230 pg/mL 11/14/2023 19:03 EST Troponin-I HS 14 ng/L 11/14/2023 19:03 EST Procalcitonin 0.22 ng/mL 11/14/2023 19:03 EST Urine Srce Straight Cath 11/14/2023 20:05 EST UA Color YELLOW. 11/14/2023 20:05 EST UA Appear CLEAR. 11/14/2023 20:05 EST UA Glucose >=1000 11/14/2023 20:05 EST UA Bili NEGATIVE 11/14/2023 20:05 EST UA Ketones NEGATIVE 11/14/2023 20:05 EST UA Spec Grav 1.010 11/14/2023 20:05 EST UA Blood TRACE 11/14/2023 20:05 EST UA pH 6.00 11/14/2023 20:05 EST UA Protein NEGATIVE 11/14/2023 20:05 EST UA Urobilinogen 0.2 11/14/2023 20:05 EST UA Nitrite NEGATIVE 11/14/2023 20:05 EST UA Leuk Est NEGATIVE 11/14/2023 20:05 EST UA Culture Ind?. No 11/14/2023 20:05 EST UA WBC None Seen 11/14/2023 20:05 EST UA RBC 0-3 11/14/2023 20:05 EST UA Squam Epithelial 0-3 11/14/2023 20:05 EST UA Mucous Present 11/14/2023 20:05 EST UA Bacteria None Seen 11/14/2023 20:05 EST Legionella Ag Ur Negative 11/14/2023 20:05 EST Streptococcus Pneumonia Antigen Negative 11/14/2023 20:05 EST SARS-CoV-2(Covid19)PCR(GXpert COVFLURSV) Neg-GeneXPert 11/14/2023 19:24 EST Flu A (GXpert COVFLURSV) Neg-GeneXPert 11/14/2023 19:24 EST Flu B (GXpert COVFLURSV) Neg-GeneXPert 11/14/2023 19:24 EST RSV (GXpert COVFLURSV) Neg-GeneXPert 11/14/2023 19:24 EST Electronically Signed on 11/15/23 07:23 AM Lauren Gomez APRN Patient Care team information Care Team Personnel Name: Sanaz Fang APRN, Position: Physician Member Role: Nurse Practitioner Address: Address: [address] [place] [address] Name: Anabel Hallman APRN Position: Physician Member Role: Nurse Practitioner Address: Address: [address] [place] [address] Name: Mally Vazquez APRN Position: Physician Member Role: Primary Care Physician Address: Address: [address] [place] [address] Name: Marshall Dsouza MD Position: Physician Member Role: ED Physician Address: Address: [address] [place] [address] Name: Bernie Quesada RN Position: Nurse Member Role: ED Nurse Care Team Related Persons Name: LAURA FIGUEROA
--- OUTSIDE RECORDS SUMMARY | 2024-04-25 04:07 | XMS_ITS | Continuity of Care Document ---
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 Role Phone Mally Vazquez APRN Primary Care Physician Encounter [facility] [facility] NBR [id number] Date(s): 09/23/23 - 09/23/23 [facility] [address] [place] [address]- [place] Discharge Disposition: Home Allergies, Adverse Reactions, [...] 08/02/22 Recorded 1Result Comment: RD done at [place] Lot: [id number] exp: 05/08/2023 Sanofi 2Result Comment: Lot: [id number] Exp: 06/08/23 LD done at [place] Medications Albuterol (Eqv-Proventil HFA) 90 mcg/inh inhalation aerosol 1 puffs, Inhale, every 4 hr, PRN as needed for wheezing, Do not exceed 12 inhalations in a 24-hour period., # 1 EA, 0 Refill(s), Pharmacy: [id number], 170, cm, 11/11/22 12:19:00 EST, [...] taking., # 12 tab, 1 Refill(s), Pharmacy: [facility], 170, cm, 11/11/22 12:19:00 EST, Height/Length Dosing, 96, kg, 11/11/22 12:19:00 EST, Weight Dosing Start Date: 07/21/23 Stop Date: 01/05/24 Status: Ordered aspirin 81 mg oral delayed release tablet 81 mg = 1 tab, Oral, Daily, # 30 tab, 0 Refill(s) Start Date: 01/05/23 Status: Ordered atorvastatin 10 mg oral tablet 10 mg = 1 tab, Oral, every evening, # 90 tab, 3 Refill(s), Pharmacy: [facility],114.09, cm, 08/12/22 16:18:00 EDT, Height/Length [...] morning, # 90 tab, 3 Refill(s), Pharmacy: [facility],114.09, cm, 08/12/22 16:18:00 EDT, Height/Length Dosing, 165, kg, 08/12/22 16:18:00 EDT, Weight Dosing Start Date: 10/24/22 Stop Date: 10/19/23 Status: Ordered gabapentin 100 mg oral capsule 100 mg = 1 cap, Oral, Daily, # 90 cap, 0 Refill(s), Pharmacy: [facility], 170, cm, 11/11/22 12:19:00 EST, Height/Length Dosing, 96, kg, 11/11/22 12:19:00 EST, Weight Dosing Start Date: 06/05/23 Stop Date: 09/03/23 Status: Ordered Jardiance 10 mg oral tablet 1 tab, Oral, every morning, # 30 tab, 0 Refill(s), Pharmacy: [id number], 167.64, cm, 09/16/23 12:38:00 EST, Height, 99.79, kg, 09/16/23 12:45:00 EST, Weight Dosing Start Date: 09/22/23 Status: Ordered levothyroxine 137 mcg (0.137 mg) oral tablet See Instructions, TAKE 1 TABLET DAILY IN THE MORNING ON AN EMPTY STOMACH, # 90 tab, 3 Refill(s), Pharmacy: [facility], 170, cm, 11/11/22 12:19:00 EST, Height/Length Dosing, 96, kg,11/11/22 12:19:00 EST, Weight Dosing Start Date: 04/14/23 Status: Ordered losartan 100 mg oral tablet 100 mg = 1 tab, Oral, Daily, # 90 tab, 3 Refill(s), Pharmacy: [facility], 114.09, cm, 08/12/22 16:18:00 EDT, Height/Length Dosing, 165, kg, 08/12/22 16:18:00 EDT, Weight Dosing Start Date: 10/24/22 Stop Date: 10/19/23 Status: Ordered metoprolol tartrate 25 mg oral tablet 25 mg = 1 tab, Oral, BID, # 180 tab, 3 Refill(s), Pharmacy: [facility], 170, cm,11/11/22 12:19:00 EST, Height/Length Dosing, 96, kg, 11/11/22 12:19:00 EST, Weight Dosing Start Date: 08/25/23 Stop Date: 08/19/24 Status: Ordered multivitamin adult, oral tablet 1 tab, Oral, Daily Start Date: 08/11/22 Status: Ordered LifeLock oral capsule 8 EA, TAKE 1 CAPSULE BY MOUTH TWICE DAILY, 0 Refill(s) Start Date: 6/14/23 Status: Ordered Problem List Condition Confirmation Course [...] Safety Implantable Status Assigning Authority Unknown NA [id number] Unknown 08/07/24 Unknown Unknown Active Unknown Unknown N/A [id number] 2 Unknown 06/10/32 Unknown Unknown Active Unknown Unknown NA [id number] 1 Unknown 04/01/27 Unknown Unknown Active Unknown Unknown N/A [id number] 2 Unknown 12/07/31 Unknown Unknown Active Unknown Unknown N/A [id number] 2 Unknown 12/15/26 Unknown Unknown Active Unknown Patient Care team information Care Team Personnel Name: Sanaz Fang APRN, Position: Physician Member Role: Nurse Practitioner Address: Address: [address] [place] [address] Name: Anabel Hallman APRN Position: Physician Member Role: Nurse Practitioner Address: Address: [address] [place] [address] Name: Mally Vazquez APRN Position: Physician Member Role: Primary Care Physician Address: Address: [address] [place] [address] Care Team Related Persons Name: LAURA LEON
--- OUTSIDE RECORDS SUMMARY | 2024-04-25 04:08 | XMS_ITS | Continuity of Care Document ---
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 Role Phone Mally Vazquez APRN Primary Care Physician [phone] Encounter [facility] [facility] NBR [id number] Date(s): 04/22/23 - 04/22/23 [facility] [address] [place] [address]- [place] Encounter Diagnosis Osteoarthritis of left glenohumeral joint(Discharge Diagnosis) - 04/22/23 Discharge Disposition: Home or Self Care Attending Physician: Sanaz Fang APRN, Referring Physician: Mally Vazquez APRN Allergies, Adverse Reactions, Alerts Substance Reaction Severity Status narcotic analgesics Unknown Active sulfa drugs Rash Hallucinations Unknown Active Flomax Dizziness Unknown Active Assessment and Plan Future Appointments Functional Status 04/22/23 Other exposure to Infectious Disease Non e Immunizations Given and Recorded Vaccine Date Status Refusal Reason influenza virus vaccine, inactivated 1 08/02/22 Re corded SARS-CoV-2 mRNA (tozinameran 12y+) bival 2 08/02/22 Recorded 1Result Comment: RD done at [place] Lot: [id number] exp: 05/08/2023 Sanofi 2Result Comment: Lot: [id number] Exp: 06/08/23 LD done at [facility] Medications Acidophilus Probiotic Blend 1 cap, Oral, Daily, 0 Refill(s) Start Date: 08/11/22 Status: Ordered Albuterol (Eqv-Proventil HFA) 90 mcg/inh inhalation aerosol 1 puffs, Inhale, every 4 hr, PRN as needed for wheezing, Do not exceed 12 inhalations in a 24-hour period., # 1 EA, 0 Refill(s), Pharmacy: [id number], 170, cm, 11/11/22 12:19:00 EST, [...] taking., # 12 tab, 1 Refill(s), Pharmacy: [facility]... Start Date: 02/03/23 Stop Date: 07/21/23 Status: Ordered amoxicillin-clavulanate 875 mg-125 mg oral [...] evening, # 90 tab, 3 Refill(s), Pharmacy: [facility],114.09, cm, 08/12/22 16:18:00 EDT, Height/Length Dosing, 165, kg, 08/12/22 16:18:00 EDT, Weight Dosing Start Date: 10/24/22 Stop Date: 10/19/23 Status: Ordered calcium (as carbonate)-vitamin D 600 mg-200 intl units oral tablet 1 tab, Oral, Daily Start Date: 08/11/22 Status: Ordered Calcium 600+D 600 mg-200 intl units oral tablet 28 tab, 0 Refill(s) Start Date: 04/22/23 Status: Ordered citalopram 20 mg oral tablet See Instructions, TAKE ONE TABLET BY MOUTH ONCE DAILY Appointment on 03/24/2023, # 90 tab, 0 Refill(s), Pharmacy: [facility] #[id number], 170, cm, 11/11/22 12:19:00 EST, [...] Refill(s) Start Date: 04/22/23 Status: Ordered furosemide 20 mg oral tablet 30 EA, Take 1 tablet by mouth daily., 0 Refill(s) Start Date: 04/22/23 Status: Ordered furosemide 40 mg oral tablet 40 mg = 1 tab, Oral, every morning, # 90 tab, 3 Refill(s), Pharmacy: [facility],114.09, cm, 08/12/22 16:18:00 EDT, Height/Length Dosing, 165, kg, 08/12/22 16:18:00 EDT, Weight Dosing Start Date: 10/24/22 Stop Date: 10/19/23 Status: Ordered gabapentin 100 mg oral capsule 100 mg = 1 cap, Oral, Daily, 0 Refill(s) Start Date: 01/11/23 Status: Ordered gabapentin 300 mg oral capsule 56 cap, 0 Refill(s) Start Date: 04/22/23 Status: Ordered lansoprazole 30 mg oral delayed release capsule 30 mg = 1 cap, Oral, every morning Start Date: 08/11/22 Status: Ordered levothyroxine 137 mcg (0.137 mg) oral tablet See Instructions, TAKE 1 TABLET DAILY IN THE MORNING ON AN EMPTY STOMACH, # 90 tab, 3 Refill(s), Pharmacy: [facility], 170, cm, 11/11/22 12:19:00 EST, Height/Length Dosing, 96, kg,11/11/22 12:19:00 EST, Weight Dosing Start Date: 04/14/23 Status: Ordered losartan 100 mg oral tablet 100 mg = 1 tab, Oral, Daily, # 90 tab, 3 Refill(s), Pharmacy: [facility], 114.09, cm, 08/12/22 16:18:00 EDT, Height/Length Dosing, 165, kg, 08/12/22 16:18:00 EDT, Weight Dosing Start Date: 10/24/22 Stop Date: 10/19/23 Status: Ordered metFORMIN 500 mg oral tablet 500 mg = 1 tab, Oral, every evening, # 90 tab, 3 Refill(s), Pharmacy: [facility], 114.09, cm, 08/12/22 16:18:00 EDT, Height/Length Dosing, 165, kg, 08/12/22 16:18:00 EDT, Weight Dosing Start Date: 10/24/22 Stop Date: 10/19/23 Status: Ordered Metoprolol Tartrate 100 mg oral tablet 135 tab, 0 Refill(s) Start Date: 04/22/23 Status: Ordered Metoprolol Tartrate 25 mg oral tablet 180 tab, 0 Refill(s) Start Date: 04/22/23 Status: Ordered metoprolol tartrate 25 mg oral tablet 25 mg = 1 tab, Oral, BID, # 180 tab, 3 Refill(s), Pharmacy: [facility], 114.09, cm, 08/12/22 16:18:00 EDT, Height/Length Dosing, 165, kg, 08/12/22 16:18:00 EDT, Weight Dosing Start Date: 10/24/22 Stop Date: 10/19/23 Status: Ordered multivitamin adult, oral tablet 1 tab, Oral, Daily Start Date: 08/11/22 Status: Ordered Greentoe oral capsule 8 EA, TAKE 1 CAPSULE BY MOUTH TWICE DAILY, 0 Refill(s) Start Date: 04/22/23 Status: Ordered predniSONE 20 mg oral tablet 5 EA, TAKE ONE TABLET BY MOUTH ONCE DAILY. TAKE WITH FOOD OR MILK, 0 Refill(s) Start Date: 04/22/23 Status: Ordered Synthroid 137 mcg (0.137 mg) oral tablet 90 tab, 0 Refill(s) Start Date: 04/22/23 Status: [...] Range]: 1 Peripheral Pulse Rate [60-100 bpm] 78 bp m (04/22/23 12:47 PM) Blood Pressure [90-140/60-90 mmHg] 130/7 2mmHg (04/22/23 12:47 PM) Weight 97.52 kg (04/22/23 12:47 PM) Weight Measured (lbs) 214.995 lb (04/22/23 12:47 PM) Height 165.09 cm (04/22/23 12:47 PM) Height/Length Measured (inches) 65 inch (04/22/23 12:47 PM) BSA Measured 2.11 m2 (04/22/23 12:47 PM) Body Mass Index 35.78 kg/m2 (04/22/23 12:47 PM) Social History Social History Type Response Tobacco Never tobacco user T obacco Use:. 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 Katlyn Hallman, DO 08/12/22 Non Biological Knee L Device Identifier Serial Number Lot or Batch Number Manufacturing Date Expiration Date Distinct Identification Code MRI Safety Implantable Status Assigning Authority Unknown NA [id number] Unknown 08/07/24 Unknown Unknown Active Unknown Unknown N/A [id number] 2 Unknown 06/10/32 Unknown Unknown Active Unknown Unknown NA [id number] Unknown 04/01/27 Unknown Unknown Active Unknown Unknown N/A [id number] 2 Unknown 12/07/31 Unknown Unknown Active Unknown Unknown N/A [id number] 2 Unknown 12/15/26 Unknown Unknown Active Unknown Hospital Discharge Instructions Follow Up Care 04/16/2023 16:06:30 With:Return to this practice Address: When: only if needed Physician Outpatient Note * Sanaz Fang APRN,: PERFORM Event Display: Office Clinic Note Physician Authored Date: [id number] YVETTE DRAPER :1945 Age:78 years Sex:Female Visit Date:04/22/2023 Primary Care Physician: Mally Vazquez APRN Chief Complaint LEFT SHOULDER History of Present Illness Alice is a very pleasant 78-year-old woman who is well-known to the practice. ??She comes in today for evaluation of left shoulder pain. ??She has had issues with this shoulder in the past, describes having??an ultrasound-guided intra- articular injection several years ago which was very helpful.?? However her pain returned about a year ago when she fell, injured the right shoulder and had to compensate with the left. ??Since then she has had significant pain and loss of motion on the left. ??Difficulty sleeping at night. ??She has been going to physical therapy, but this has not been helpful. Review of Systems Constitutional:?No??fevers,?No??chills,?No??sweats Respiratory:?No??shortness of breath,?No??cough Cardiovascular:?No??Chest pain,?No??palpitations,?No??syncope Gastrointestinal:?Nonausea,?No??vomiting,?No??diarrhea Musculoskeletal:??No??back pain,??No??neck pain,??Positive for??left shoulder pain,??No??muscle pain,??Positive for??decreased range of motion left shoulder Integumentary:?No??rash,?No??pruritus,?No??abrasions Neurologic: Alert & oriented X 4 Psychiatric:?No??anxiety,?No??depression Physical Exam Vitals & Measurements HR:??78??(Peripheral)?? BP:??130/72?? SpO2:??98%?? HT:??165.09??cm?? WT:??97.52??kg?? BMI:??35.78?? BSA:??2.11?? The patient is alert and oriented x3. ??Pleasant and cooperative. ??Well-dressed and well-groomed.?? Appears stated age and is well-nourished and well- developed.?? Examination of the left shoulder iswithout deformity. ??Skin is intact. ??There is no erythema or warmth. ??No signs or symptoms of infection.?? No point tenderness about the shoulder. ??Active forward flexion is to 90 degrees. ??Passively I am able to get her to about 100 degrees. ??Extension is full. ??Internal rotation is thumb to above the pant line. ??Lift off is with weakness.?? Active abduction is to 90 degrees, passively Booker able to get her to about 100 degrees. ??Patient is able to cross arm without difficulty. ??Thereis significant weakness with??empty can testing. ??Arm and forearm compartments are soft and nontender. ??The left upper extremity is neurovascularly intact distally. Procedure Risks, benefits and alternatives to this injection are discussed with the patient, verbal consent is obtained. ??Under standard, sterile technique, the??anterior??injection site of the??left??shoulder is meticulously prepped with alcohol x3. ??Then 40 mg of Kenalog combined with 1% lidocaine plain??is injected without difficulty. ??The patient tolerated the injection very well and a dry, sterile bandage is applied. ??Postinjection instructions are provided. Assessment/Plan 1.??Osteoarthritis of left glenohumeral joint??M19.012 Alice is a very pleasant 78-year-old woman who has been struggling with left shoulder pain.?? She hasradiographically confirmed glenohumeral joint OA, likely rotator cuff pathology as well.?? She has not responded to physical therapy. ??She is not interested in surgery. ??She has had injections in the past which have been helpful. ??I offered her another injection today and she would like to do this.?? He may continue with all supportive care. ??I will plan on seeing her back on an as-needed basis. ??She is in agreement with that plan and is encouraged to contact the office at anytime with questions or concerns.?? I spent 20 minutes in reviewing the record, seeing the patient and documentingin the medical record. Ordered: Kenalog-40, 40 mg, Intra-articular, Once, First Dose: 04/22/23 13:39:00 EDT, Stop Date: 04/22/23 13:39:00 EDT, Physician Stop, Routine ?? Follow Up Instructions With When Contact Information Return to this practice Only if needed Additional Instructions: Problem List/Past Medical History Ongoing Acquired hypothyroidism [...] 1 tab, Oral, every week, 1 refills amoxicillin-clavulanate 875 mg-125 mg oral tablet aspirin 81 mg oral delayed release tablet, 81 mg= 1 tab, Oral, Daily atorvastatin 10 mg oral tablet, 10 mg= 1 tab, Oral, every evening, 3 refills calcium (as carbonate)-vitamin D 600 mg-200 intl units oral tablet, 1 tab, Oral, Daily Calcium 600+D 600 mg-200 intl units oral tablet citalopram 20 mg oral tablet, See Instructions Coenzyme Q10 100 mg oral capsule, 100 mg= 1 cap, Oral, Daily Diabetic footwear, See instructions famotidine 20 mg oral tablet furosemide 20 mg oral tablet furosemide 40 mg oral tablet, 40 mg= 1 tab, Oral, every morning, 3 refills gabapentin 100 mg oral capsule, 100 mg= 1 cap, Oral, Daily gabapentin 300 mg oral capsule Kenalog-40, 40 mg, Intra-articular, Once lansoprazole 30 mg oral delayed release capsule, 30 mg= 1 cap, Oral, every morning levothyroxine 137 mcg (0.137 mg) oral tablet, See Instructions, 3 refills losartan 100 mg oral tablet, 100 mg= 1 tab, Oral, Daily, 3 refills metFORMIN 500 mg oral tablet, 500 mg= 1 tab, Oral, every evening, 3 refills Metoprolol Tartrate 100 mg oral tablet Metoprolol Tartrate 25 mg oral tablet metoprolol tartrate 25 mg oral tablet, 25 mg= 1 tab, Oral, BID, 3 refills multivitamin adult, oral tablet, 1 tab, Oral, Daily [employer] oral capsule predniSONE 20 mg oral tablet Synthroid 137 mcg (0.137 mg) oral tablet Allergies Flomax??(Dizziness) narcotic analgesics sulfa drugs??(Rash, Hallucinations) [...] 08/02/2022 Recorded Comments : RD done at [facility] Lot: [id number] exp: 05/08/2023 Sanofi SARS-CoV-2 mRNA (tozinameran 12y+) bival 08/02/2022 Recorded Comments : Lot: [id number] Exp: 06/08/23 LD done at [facility] Diagnostic Results Diagnostic Study Interpretation: X-rays of the left shoulder from January 06, 2023 are personally reviewed on the [facility] system.?? No acute fracture or dislocation.?? Glenohumeral joint OA is noted as evidenced by joint space narrowing, flattening of the humeral head and osteophyte formation.?? AC joint arthropathy noted. Electronically Signed on 04/22/23 01:40 PM Sanaz Fang APRN, Patient Care team information Care Team Personnel Name: Sanaz Fang APRN, Position: Physician Member Role: Nurse Practitioner Address: Address: [address] [place] [address] Name: Anabel Hallman APRN Position: Physician Member Role: Nurse Practitioner Address: Address: [address] [place] [address]- [place] Name: Mally Vazquez APRN Position: Physician Member Role: Primary Care Physician Address: Address: [address] [place] [phone] Care Team Related Persons Name: LAURA LEON Address: Home
--- OUTSIDE RECORDS SUMMARY | 2024-04-25 04:08 | XMS_ITS | Continuity of Care Document ---
Author Name Unknown Organization [facility] Address [address] [place] [id number] Care Team Providers Care Firewall Engineer Name Role Phone Mally Vazquez APRN Primary Care Physician Encounter [facility] FIN NBR [id number] Date(s): 11/25/22 - 11/25/[address] [phone]- [place] Discharge Disposition: Home or Self Care Attending Physician: Mally Vazquez APRN Admitting Physician: Mally Vazquez APRN Referring Physician: Mally Vazquez APRN Allergies, Adverse Reactions, Alerts Substance Reaction Severity Status sulfa drugs Rash Hallucinations Unknown Active Flomax Dizziness Unknown Active Assessment and Plan Future Appointments Immunizations Given and Recorded Vaccine Date Status Refusal Reason influenza virus vaccine, inactivated 1 08/02/22 Re corded SARS-CoV-2 mRNA (toshainanameran 12y+) bival 2 08/02/22 Recorded 1Result Comment: RD done at [place] Lot: [id number] exp: 05/08/2023 Sanofi 2Result Comment: Lot: [id number] Exp: 06/08/23 LD done at [place] Medications Acidophilus Probiotic Blend 1 cap, Oral, Daily, 0 Refill(s) Start Date: 08/11/22 Status: Ordered Albuterol (Eqv-Proventil HFA) 90 mcg/inh inhalation aerosol 1 puffs, Inhale, every 4 hr, PRN as needed for wheezing, Do not exceed 12 inhalations in a 24-hour period., # 1 EA, 0 Refill(s), Pharmacy: [facility] #[id number], 170, cm, 11/11/22 12:19:00 EST, Height/Length Dosing, 96, kg, 11/11/22 12:19:00 EST, Weight... Start Date: 11/25/22 Status: Ordered alendronate 70 mg oral tablet 70 mg = 1 tab, Oral, every week, typically takes on Thursday, # 12 tab, 0 Refill(s), Pharmacy: [facility], 114.09, cm, 08/12/22 16:18:00 EDT, Height/Length Dosing, 165, kg, 08/12/22 16:18:00 EDT, Weight Dosing Start Date: 11/06/22 Status: Ordered Aspirin Enteric Coated 325 mg = 1 tab, Oral, BID, 0 Refill(s) Start Date: 08/21/22 Status: Ordered atorvastatin 10 mg oral tablet 10 mg = 1 tab, Oral, every evening, # 90 tab, 3 Refill(s), Pharmacy: [facility],114.09, cm, 08/12/22 16:18:00 EDT, Height/Length Dosing, 165, kg, 08/12/22 16:18:00 EDT, Weight Dosing Start Date: 10/24/22 Stop Date: 10/19/23 Status: Ordered calcium (as carbonate)-vitamin D 600 mg-200 intl units oral tablet 1 tab, Oral, Daily Start Date: 08/11/22 Status: Ordered citalopram 20 mg oral tablet 20 mg = 1 tab, Oral, every morning Start Date: 08/11/22 Status: Ordered Coenzyme Q10 100 mg oral [...] morning, # 90 tab, 3 Refill(s), Pharmacy: [facility],114.09, cm, 08/12/22 16:18:00 EDT, Height/Length Dosing, 165, kg, 08/12/22 16:18:00 EDT, Weight Dosing Start Date: 10/24/22 Stop Date: 10/19/23 Status: Ordered gabapentin 100 mg oral capsule 100 mg = 1 cap, Oral, BID, # 180 cap, 1 Refill(s), Pharmacy: [facility], 114.09,cm, 08/12/22 16:18:00 EDT, Height/Length Dosing, 165, kg, 08/12/22 16:18:00 EDT, Weight Dosing Start Date: 10/24/22 Stop Date: 04/22/23 Status: Ordered lansoprazole 30 mg oral delayed release capsule 30 mg = 1 cap, Oral, every morning Start Date: 08/11/22 Status: Ordered levothyroxine 137 mcg (0.137 mg) oral tablet 137 mcg = 1 tab, Oral, every morning Start Date: 08/11/22 Status: Ordered losartan 100 mg oral tablet 100 mg = 1 tab, Oral, Daily, # 90 tab, 3 Refill(s), Pharmacy: [facility], 114.09, cm, 08/12/22 16:18:00 EDT, Height/Length Dosing, 165, kg, 08/12/22 16:18:00 EDT, Weight Dosing Start Date: 10/24/22 Stop Date: 10/19/23 Status: Ordered metFORMIN 500 mg oral tablet 500 mg = 1 tab, Oral, every evening, # 90 tab, 3 Refill(s), Pharmacy: [facility], 114.09, cm, 08/12/22 16:18:00 EDT, Height/Length Dosing, 165, kg, 08/12/22 16:18:00 EDT, Weight Dosing Start Date: 10/24/22 Stop Date: 10/19/23 Status: Ordered metoprolol tartrate 25 mg oral tablet 25 mg = 1 tab, Oral, BID, # 180 tab, 3 Refill(s), Pharmacy: [facility], 114.09, cm, 08/12/22 16:18:00 EDT, Height/Length Dosing, 165, kg, 08/12/22 16:18:00 EDT, Weight Dosing Start Date: 10/24/22 Stop Date: 10/19/23 Status: Ordered multivitamin adult, oral tablet 1 tab, Oral, Daily Start Date: 08/11/22 Status: Ordered predniSONE 20 mg oral tablet 20 mg = 1 tab, Oral, Daily, with food or milk, # 5 tab, 0 Refill(s), Pharmacy: [facility] #[id number],170, cm, 11/11/22 12:19:00 EST, Height/Length Dosing, 96, kg, 11/11/22 12:19:00 EST, Weight Dosing Start Date: 11/25/22 Status: Ordered Senna Lax 8.6 mg oral [...] to Fibroids Results Laboratory List Name Date CBC w/ Diff 11/25/22 Comprehensive Metabolic Panel (CMP) 11/25 Automated Diff 11/25/22 Most recent to oldest [Reference Range]: 1 WBC [4.8-10.8 K/mcL] 9.4 K/mcL (11/25/22 11:42 AM) RBC [4.20-6.10 Million/mcL] 4.03 Million /mcL *LOW* (11/25/22 11:42 AM) Neutro Auto [42.2-75.2 %] 80.4 % *HI* (11/25/22 11:42 AM) Lymph Auto [20.5-51.1 %] 10.2 % *LOW* (11/25/22 11:42 AM) Blair Auto [1.7-9.3 %] 8.3 % (11/25/22 11:42 AM) Basophil Auto [0.0-0.8 %] 0.3 % (11/25/22 11:42 AM) BUN [8-26 mg/dL] 26 mg/dL (11/25/22 11:42 AM) Glucose Level [74-106 mg/dL] 123 mg/dL *HI* (11/25/22 11:42 AM) Potassium Level [3.5-5.1 mmol/L] 3.9 mmo l/L (11/25/22 11:42 AM) Baso Absolute [0.0-0.2 K/mcL] 0.0 K/mcL (11/25/22 11:42 AM) MCV [80.0-99.0 fL] 90.6 fL (11/25/22 11:42 AM) AST [15-41 IntlUnit/L] 25 IntlUnit/L (11/25/22 11:42 AM) ALT [14-54 IntlUnit/L] 28 IntlUnit/L (11/25/22 11:42 AM) MCHC [32.0-36.0 g/dL] 31.0 g/dL *LOW* (11/25/22 11:42 AM) Osmolality [275-295 mOsm/kg] 282 mOsm/kg (11/25/22 11:42 AM) Sodium Level [134-143 mmol/L] 138 mmol/L (11/25/22 11:42 AM) Lymph Absolute [1.2-3.4 K/mcL] 1.0 K/mcL *LOW* (11/25/22 11:42 AM) Hct [37.0-52.0 %] 36.5 % *LOW* (11/25/22 11:42 AM) Calcium Level [8.9-10.3 mg/dL] 8.4 mg/dL *LOW* (11/25/22 11:42 AM) Blair Absolute [0.1-0.6 K/mcL] 0.8 K/mcL *HI* (11/25/22 11:42 AM) Albumin Level [3.5-5.0 g/dL] 3.3 g/dL *LOW* (11/25/22 11:42 AM) Protein Total [6.5-8.1 g/dL] 6.3 g/dL *LOW* (11/25/22 11:42 AM) MCH [27.0-31.0 pg] 28.0 pg (11/25/22 11:42 AM) Neutro Absolute [1.4-6.5 K/mcL] 7.6 K/mc L *HI* (11/25/22 11:42 AM) Bilirubin Total [0.2-1.2 mg/dL] 1.1 mg/d L (11/25/22 11:42 AM) Hgb [12.0-18.0 g/dL] 11.3 g/dL *LOW* (11/25/22 11:42 AM) Alk Phos [38-130 IntlUnit/L] 60 IntlUnit /L (11/25/22 11:42 AM) MPV [7.4-10.4 fL] 11.3 fL *HI* (11/25/22 11:42 AM) Platelets [130-400 K/mcL] 288 K/mcL (11/25/22 11:42 AM) CO2 [22-32 mmol/L] 34 mmol/L *HI* (11/25/22 11:42 AM) Eos Absolute [0.0-0.2 K/mcL] 0.0 K/mcL (11/25/22 11:42 AM) eGFR Non-AA 35 *NA* (11/25/22 11:42 AM) eGFR AA 35 *NA* (11/25/22 11:42 AM) Chloride Level [98-111 mmol/L] 93 mmol/L *LOW* (11/25/22 11:42 AM) RDW-CV [11.5-14.5 %] 15.5 % *HI* (11/25/22 11:42 AM) A/G Ratio 1.1 *NA* (11/25/22 11:42 AM) BUN/Creat Ratio [8.0-20.0] 17.0 (11/25/22 11:42 AM) Globulin 3.0 *NA* (11/25/22 11:42 AM) Imm Gran Absolute 0.03 *NA* (11/25/22 11:42 AM) Imm Gran Auto [0.0-0.5 %] 0.3 % (11/25/22 11:42 AM) Creatinine Level [0.44-1.00 mg/dL] 1.53 mg/dL *HI* (11/25/22 11:42 AM) Anion Gap [3.0-12.0] 11.0 (11/25/22 11:42 AM) Eos, Auto [0.00-3.00 %] 0.50 % (11/25/22 11:42 AM) Social History Social History Type Response Tobacco Never tobacco user T obacco Use:. 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 Katlyn Peoples, 08/12/22 Non Biological Knee L Device Identifier Serial Number Lot or Batch Number Manufacturing Date Expiration Date Distinct Identification Code MRI Safety Implantable Status Assigning Authority Unknown NA [id number] Unknown 08/07/24 Unknown Unknown Active Unknown Unknown N/A [id number] 2 Unknown 06/10/32 Unknown Unknown Active Unknown Unknown NA [id number] 1 Unknown 04/01/27 Unknown Unknown Active Unknown Unknown N/A [id number] 2 Unknown 12/07/31 Unknown Unknown Active Unknown Unknown N/A [id number] 2 Unknown 12/15/26 Unknown Unknown Active Unknown Patient Care team information Personnel Name: Mally Vazquez APRN Address: Address: [address] [place] [id number]
--- OUTSIDE RECORDS SUMMARY | 2024-04-25 04:08 | XMS_ITS | Continuity of Care Document ---
Author Name Unknown Organization [facility] Address [address] [place] [address] Care Team Providers Care Electrophysiologist Name Role Phone Mally Vazquez APRN Primary Care Physician Encounter [facility] FIN NBR [id number] Date(s): 01/21/23 - 01/21/[address] [address]- [place] Discharge Disposition: Home or Self Care Attending Physician: DR. MAMIE ÁLVAREZ Admitting Physician: DR. MAMIE ÁLVAREZ Allergies, Adverse Reactions, Alerts Substance Reaction Severity Status narcotic analgesics Unknown Active sulfa drugs Rash Hallucinations Unknown Active Flomax Dizziness Unknown Active Assessment and Plan Future Appointments Appointment Date:01/23/2023 10:00:00 AM Scheduled Provider:Kylie Beckwith Location:[facility] Appointment Type:SP Treatment Immunizations Given and Recorded Vaccine Date Status Refusal Reason influenza virus vaccine, inactivated 1 08/02/22 Re corded SARS-CoV-2 mRNA (tozinameran 12y+) bival 2 08/02/22 Recorded 1Result Comment: RD done at [place] Lot: [id number] exp: 05/08/2023 Sanofi 2Result Comment: Lot: [id number] Exp: 06/08/23 LD done at [facility] Medications Acidophilus Probiotic Blend 1 cap, Oral, Daily, 0 Refill(s) Start Date: 08/11/22 Status: Ordered Albuterol (Eqv-Proventil HFA) 90 mcg/inh inhalation aerosol 1 puffs, Inhale, every 4 hr, PRN as needed for wheezing, Do not exceed 12 inhalations in a 24-hour period., # 1 EA, 0 Refill(s), Pharmacy: [facility] #[id number], 170, cm, 11/11/22 12:19:00 EST, Height/Length Dosing, 96, kg, 11/11/22 12:19:00 EST, Weight... Start Date: 11/25/22 Status: Ordered alendronate 70 mg oral tablet 70 mg = 1 tab, Oral, every week, typically takes on Thursday, # 12 tab, 0 Refill(s), Pharmacy: [facility], 114.09, cm, 08/12/22 16:18:00 EDT, Height/Length Dosing, 165, kg, 08/12/22 16:18:00 EDT, Weight Dosing Start Date: 11/06/22 Status: Ordered aspirin 81 mg oral delayed release tablet 81 mg = 1 tab, Oral, Daily, # 30 tab, 0 Refill(s) Start Date: 01/05/23 Status: Ordered atorvastatin 10 mg oral tablet 10 mg = 1 tab, Oral, every evening, # 90 tab, 3 Refill(s), Pharmacy: [facility],114.09, cm, 08/12/22 16:18:00 EDT, Height/Length [...] morning, # 90 tab, 3 Refill(s), Pharmacy: [facility],114.09, cm, 08/12/22 16:18:00 EDT, Height/Length [...] Daily, # 90 tab, 3 Refill(s), Pharmacy: [facility], 114.09, cm, 08/12/22 16:18:00 EDT, Height/Length Dosing, 165, kg, 08/12/22 16:18:00 EDT, Weight Dosing Start Date: 10/24/22 Stop Date: 10/19/23 Status: Ordered metFORMIN 500 mg oral tablet 500 mg = 1 tab, Oral, every evening, # 90 tab, 3 Refill(s), Pharmacy: [facility], 114.09, cm, 08/12/22 16:18:00 EDT, Height/Length Dosing, 165, kg, 08/12/22 16:18:00 EDT, Weight Dosing Start Date: 10/24/22 Stop Date: 10/19/23 Status: Ordered metoprolol tartrate 25 mg oral tablet 25 mg = 1 tab, Oral, BID, # 180 tab, 3 Refill(s), Pharmacy: [facility], 114.09, cm, 08/12/22 16:18:00 EDT, [...] to Fibroids Results Laboratory List Name Date Creatinine 01/21/23 Most recent to oldest [Reference Range]: 1 Creatinine Level [0.44-1.00 mg/dL] 1.31 mg/dL *HI* (01/21/23 10:15 AM) eGFR CKD-EPI [>=60 mL/min/1.73 m2] 42 mL /min/1.73 m2 *LOW* (01/21/23 10:15 AM) Radiology Reports * Exam Date Time Procedure Performing Provider Status 01/21/23 11:[address] Neck Soft Tissue w/ Contrast Danyell Smith; Auth (Verified) Notes: (CT Neck Soft Tissue w/ Contrast) Reason For Exam: PARALYSIS OF VOCAL CORD CT Neck Soft Tissue w/ Contrast EXAM DESCRIPTION: CT Neck Soft Tissue w/ Contrast 01/21/2023 INDICATION: Left vocal cord paralysis and hoarseness TECHNIQUE: All CT scans at this facility use at least one of these dose optimization techniques: Automated exposure control; mA and/or kV adjustment per patient size (includes targeted exams where dose is matched to clinical indication); or iterative reconstruction. CT examination of the neck with contrast with thin section axial images including sagittal and coronal MPR images performed on a separate workstation under concurrent supervision. Imaging was performed from just above the skull base into the mid mediastinum including the AP window region. 100 cc of Isovue-300 contrast was utilized COMPARISON: 06/05/2019 FINDINGS: No neck mass, adenopathy or abnormal enhancement. Nasopharynx and parapharyngeal fat planes appear symmetric. No mass or abnormal enhancement involving the parotid or submandibular salivary gland on either side. Prevertebral soft tissues in the cervical region are unremarkable. Epiglottis and vallecula appear within normal limits. No tongue region mass is identified. No mass or abnormal enhancement in the visualized superior mediastinum. Specifically, no mass or abnormal enhancement in the AP window region. Mild biapical lung scarring without significant change from prior study. Visualized lung apices are otherwise clear No mass or abnormal enhancement in the visualized intracranial contents or orbit region on either side No suspicious regional osseous lesions. IMPRESSION: No neck mass, adenopathy or abnormal enhancement. JOB #: [id number] Final Signed by: Kishore Parra MD Signed (Electronic Signature): 01/21/2023 11:56 am Social History Social History Type Response Tobacco Never tobacco user T obacco Use:. 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 Katlyn Peoples DO 08/12/22 Non Biological Knee L Device Identifier Serial Number Lot or Batch Number Manufacturing Date Expiration Date Distinct Identification Code MRI Safety Implantable Status Assigning Authority Unknown NA [id number] Unknown 08/07/24 Unknown Unknown Active Unknown Unknown N/A [id number] 2 Unknown 06/10/32 Unknown Unknown Active Unknown Unknown NA [id number] 1 Unknown 04/01/27 Unknown Unknown Active Unknown Unknown N/A [id number] 2 Unknown 12/07/31 Unknown Unknown Active Unknown Unknown N/A [id number] 2 Unknown 12/15/[address] Unknown [address] Active Unknown CT Neck W contrast IV * Kishore Parra MD: VERIFY, VERIFY Event Display: Report EXAM DESCRIPTION: CT Neck Soft Tissue w/ Contrast 01/21/2023 INDICATION: Left vocal cord paralysis and hoarseness TECHNIQUE: All CT scans at this facility use at least one of these dose optimization techniques: Automated exposure control; mA and/or kV adjustment per patient size (includes targeted exams where dose is matched to clinical indication); or iterative reconstruction. CT examination of the neck with contrast with thin section axial images including sagittal and coronal MPR images performed on a separate workstation under concurrent supervision. Imaging was performed from just above the skull base into the mid mediastinum including the AP window region. 100 cc of Isovue-300 contrast was utilized COMPARISON: 06/05/2019 FINDINGS: No neck mass, adenopathy or abnormal enhancement. Nasopharynx and parapharyngeal fat planes appear symmetric. No mass or abnormal enhancement involving the parotid or submandibular salivary gland on either side. Prevertebral soft tissues in the cervical region are unremarkable. Epiglottis and vallecula appear within normal limits. No tongue region mass is identified. No mass or abnormal enhancement in the visualized superior mediastinum. Specifically, no mass or abnormal enhancement in the AP window region. Mild biapical lung scarring without significant change from prior study. Visualized lung apices are otherwise clear No mass or abnormal enhancement in the visualized intracranial contents or orbit region on either side No suspicious regional osseous lesions. IMPRESSION: No neck mass, adenopathy or abnormal enhancement. JOB #: [id number] Final Signed by: Kishore Parra MD Signed (Electronic Signature): 01/21/2023 11:56 am Patient Care team information Care Team Personnel Name: Sanaz Fang APRN, Position: Physician Member Role: Nurse Practitioner Address: Address: [address] [place] [address] Name: Anabel Peoples APRN Position: Physician Member Role: Nurse Practitioner Address: Address: [address] [place] [address] Name: Mally Vazquez APRN Position: Physician Member Role: Primary Care Physician Address: Address: [address] [place] [address] [place] [address] Care Team Related Persons Name: LAURA LEON Address: Home
--- OUTSIDE RECORDS SUMMARY | 2024-04-25 04:08 | XMS_ITS | Continuity of Care Document ---
Author Name Unknown Organization [facility] Address [address] [place] [id number] Care Team Providers Care Certified Lactation Educator Name Role Phone Mally Vazquez APRN Primary Care Physician Encounter [facility] NBR [id number] Date(s): 01/22/23 - 06/04/[address] [address]- Encounter Diagnosis Pain in left shoulder(Discharge Diagnosis) - 01/22/23 Pain in left shoulder(Final) - Screening mammogram, encounter for(Discharge Diagnosis) - 02/05/23 Discharge Disposition: Home-No Follow Up Attending Physician: Lexus Hernandez Attending Physician: Lexus Hernandez Admitting Physician: Mally Vazquez APRN Referring Physician: Mally Vazquez APRN Allergies, Adverse Reactions, Alerts Substance Reaction Severity Status narcotic analgesics Unknown Active sulfa drugs Rash Hallucinations Unknown Active Flomax Dizziness Unknown Active Assessment and Plan Future Appointments Functional Status 01/22/23 Prior ADL Status Independent Prior Instrumental ADL Level Independent Prior Cognitive-Communication Skills Ind ependent 01/22/23 Lives With Other: Son lives in [facility] and checks on her/helps as needed. He was staying with her until 2-3 weeks ago. 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 Costing, Personal ADL Prior Mobility Status Independent Immunizations Given and Recorded Vaccine Date Status Refusal Reason influenza virus vaccine, inactivated 1 08/02/22 Re corded SARS-CoV-2 mRNA (tozinameran 12y+) bival 2 08/02/22 Recorded 1Result Comment: RD done at [place] Lot: [id number] exp: 05/08/2023 Sanofi 2Result Comment: Lot: [id number] Exp: 06/08/23 LD done at [facility] Medications Acidophilus Probiotic Blend 1 cap, Oral, Daily, 0 Refill(s) Start Date: 08/11/22 Status: Ordered Albuterol (Eqv-Proventil HFA) 90 mcg/inh inhalation aerosol 1 puffs, Inhale, every 4 hr, PRN as needed for wheezing, Do not exceed 12 inhalations in a 24-hour period., # 1 EA, 0 Refill(s), Pharmacy: [facility] #[id number], 170, cm, 11/11/22 12:19:00 EST, [...] taking., # 12 tab, 1 Refill(s), Pharmacy: [facility]... Start Date: 02/03/23 Stop Date: [...] evening, # 90 tab, 3 Refill(s), Pharmacy: [facility],114.09, cm, 08/12/22 16:18:00 EDT, Height/Length [...] 03/24/2023, # 90 tab, 0 Refill(s), Pharmacy: [facility] #[id number], 170, cm, 11/11/22 12:19:00 EST, [...] morning, # 90 tab, 3 Refill(s), Pharmacy: [facility],114.09, cm, 08/12/22 16:18:00 EDT, Height/Length Dosing, 165, kg, 08/12/22 16:18:00 EDT, Weight Dosing Start Date: 10/24/22 Stop Date: 10/19/23 Status: Ordered gabapentin 100 mg oral capsule 100 mg = 1 cap, Oral, Daily, 0 Refill(s) Start Date: 01/11/23 Status: Ordered gabapentin 300 mg oral capsule 56 cap, 0 Refill(s) Start Date: 04/22/23 Status: Ordered lansoprazole 30 mg oral delayed release capsule 1 cap, Oral, Once a Day (before meals), # 90 cap, 3 Refill(s), Pharmacy: [facility], 170, cm, 11/11/22 12:19:00 EST, Height/Length Dosing, 96, kg, 11/11/22 12:19:00 EST, Weight Dosing Start Date: 05/01/23 Status: Ordered levothyroxine 137 mcg (0.137 mg) oral tablet See Instructions, TAKE 1 TABLET DAILY IN THE MORNING ON AN EMPTY STOMACH, # 90 tab, 3 Refill(s), Pharmacy: [facility], 170, cm, 11/11/22 12:19:00 EST, Height/Length Dosing, 96, kg,11/11/22 12:19:00 EST, Weight Dosing Start Date: 04/14/23 Status: Ordered losartan 100 mg oral tablet 100 mg = 1 tab, Oral, Daily, # 90 tab, 3 Refill(s), Pharmacy: [facility], 114.09, cm, 08/12/22 16:18:00 EDT, Height/Length Dosing, 165, kg, 08/12/22 16:18:00 EDT, Weight Dosing Start Date: 10/24/22 Stop Date: 10/19/23 Status: Ordered metFORMIN 500 mg oral tablet 500 mg = 1 tab, Oral, every evening, # 90 tab, 3 Refill(s), Pharmacy: [facility], 114.09, cm, 08/12/22 16:18:00 EDT, [...] BID, # 180 tab, 3 Refill(s), Pharmacy: [facility], 114.09, cm, 08/12/22 16:18:00 EDT, Height/Length Dosing, 165, kg, 08/12/22 16:18:00 EDT, Weight Dosing Start Date: 10/24/22 Stop Date: 10/19/23 Status: Ordered multivitamin adult, oral tablet 1 tab, Oral, Daily Start Date: 08/11/22 Status: Ordered Vovici oral capsule 8 EA, TAKE 1 CAPSULE [...] Safety Implantable Status Assigning Authority Unknown NA [id number] Unknown 08/07/24 Unknown Unknown Active Unknown Unknown N/A [id number] 2 Unknown 06/10/32 Unknown Unknown Active Unknown Unknown NA [id number] 1 Unknown 04/01/27 Unknown Unknown Active Unknown Unknown N/A [id number] 2 Unknown 12/07/31 Unknown Unknown Active Unknown Unknown N/A [id number] 2 Unknown 12/15/26 Unknown Unknown Active Unknown Patient Care team information Care Team Personnel Name: Sanaz Fang APRN, Position: Physician Member Role: Nurse Practitioner Address: Address: [address] [place] [address] Name: Anabel Hallman APRN Position: Physician Member Role: Nurse Practitioner Address: Address: [address] [place] [address] Name: Mally Vazquez APRN Position: Physician Member Role: Primary Care Physician Address: Address: [address] [place] [address] [place] Care Team Related Persons Name: LAURA LEON Address: Home
--- OUTSIDE RECORDS SUMMARY | 2024-04-25 04:08 | XMS_ITS | Continuity of Care Document ---
Author Name Unknown Organization [facility] Ambulatory Clinics Address [address] [place] [address] Care Team Providers Care Fruit Sorter Name Role Phone Mally Vazquez APRN Primary Care Physician Encounter [facility]BR [id number] Date(s): 10/23/23 - 10/23/23 [facility] [address] [place] [address] Encounter Diagnosis Dehydration syndrome(Discharge Diagnosis) - 10/23/23 Vomiting(Discharge Diagnosis) - 10/23/23 Diabetes(Discharge Diagnosis) - 10/23/23 Discharge Disposition: Home or Self Care Attending Physician: Willis Salgado MD Allergies, Adverse Reactions, Alerts Substance Reaction Severity Status narcotic analgesics 1 Unknown Active sulfa drugs Rash Hallucinations Unknown Active Flomax Dizziness Unknown Active 1coma for 4 days . unsure what they got Assessment and Plan Future Appointments Future Scheduled Tests Laboratory* Comprehensive Metabolic Panel 09/18/23 Radiology* US Kidney Bladder 08/31/23 Functional Status 10/23/23 Living Environment Home Environment No qualifying data available Other exposure to Infectious Disease Non e Immunizations Given and Recorded Vaccine Date Status Refusal Reason influenza virus vaccine, inactivated 1 08/02/22 Re corded SARS-CoV-2 mRNA (toshainanameran 12y+) bival 2 08/02/22 Recorded 1Result Comment: RD done at [place] Lot: [id number] exp: 05/08/2023 Sanofi 2Result Comment: Lot: [id number] Exp: 06/08/23 LD done at [place] Medications Albuterol (Eqv-Proventil HFA) 90 mcg/inh inhalation aerosol 1 puffs, Inhale, every 4 hr, PRN as needed for wheezing, Do not exceed 12 inhalations in a 24-hour period., # 1 EA, 0 Refill(s), Pharmacy: [id number], 170, cm, 11/11/22 12:19:00 EST, [...] taking., # 12 tab, 1 Refill(s), Pharmacy: [facility], 170, cm, 11/11/22 12:19:00 EST, Height/Length Dosing, 96, kg, 11/11/22 12:19:00 EST, Weight Dosing Start Date: 07/21/23 Stop Date: 01/05/24 Status: Ordered atorvastatin 10 mg oral tablet 10 mg = 1 tab, Oral, every evening, # 90 tab, 3 Refill(s), Pharmacy: [facility],114.09, cm, 08/12/22 16:18:00 EDT, Height/Length [...] morning, # 90 tab, 3 Refill(s), Pharmacy: [facility], 165, cm, 09/24/23 19:47:00 EST, Height, 102.2, kg, 09/24/23 19:47:00 EST, Weight Dosing Start Date: 10/13/23 Status: Ordered gabapentin 100 mg oral capsule 100 mg = 1 cap, Oral, Daily, # 90 cap, 3 Refill(s), Pharmacy: [facility], 165, cm, 09/24/23 19:47:00 EST, Height, 102.2, kg, 09/24/23 19:47:00 EST, Weight Dosing Start Date: 10/13/23 Stop Date: 10/07/24 Status: Ordered Jardiance 10 mg oral tablet 1 tab, Oral, every morning, # 30 tab, 0 Refill(s), Pharmacy: [id number], 165, cm, 09/24/2319:47:00 EST, Height, [...] STOMACH, # 90 tab, 3 Refill(s), Pharmacy: [facility], 170, cm, 11/11/22 12:19:00 EST, Height/Length Dosing, 96, kg,11/11/22 12:19:00 EST, Weight Dosing Start Date: 04/14/23 Status: Ordered losartan 100 mg oral tablet 1 tab, Oral, Daily, # 90 tab, 3 Refill(s), Pharmacy: [facility], 165, cm, 09/24/23 19:47:00 EST, Height, 102.2, kg, 09/24/23 19:47:00 EST, Weight Dosing Start Date: 10/01/23 Status: Ordered metoprolol tartrate 25 mg oral tablet 25 mg = 1 tab, Oral, BID, # 180 tab, 3 Refill(s), Pharmacy: [facility], 170, cm,11/11/22 12:19:00 EST, Height/Length Dosing, 96, kg, 11/11/22 12:19:00 EST, Weight Dosing Start Date: 08/25/23 Stop Date: 08/19/24 Status: Ordered multivitamin adult, oral tablet 1 tab, Oral, Daily Start Date: 08/11/22 Status: Ordered SavvyCard oral capsule 8 EA, TAKE 1 CAPSULE BY MOUTH TWICE DAILY, 0 Refill(s) Start Date: 04/22/23 Status: Ordered Please provide one touch ultra test strips Please provide one touch ultra test strips, For blood glucose monitoring once daily., Supply, See instructions, # 100 EA, 3 Refill(s), Pharmacy: [facility] Start Date: 10/23/23 Status: Ordered Problem List Condition Confirmation Course [...] Most recent to oldest [Reference Range]: 1 Temperature Tympanic [36.6-38.1 Deg C] 3 7.4 Deg C (10/23/23 2:09 PM) Apical Heart Rate [60-100 bpm] 82 bpm (10/23/23 2:09 PM) Blood Pressure [90-140/60-90 mmHg] 118/6 2mmHg (10/23/23 2:09 PM) Mean Arterial Pressure, Cuff [70-110 mmH g] 81 mmHg (10/23/23 2:09 PM) Weight 101.5 kg (10/23/23 2:09 PM) Weight Measured (lbs) 223.769 lb (10/23/23 2:09 PM) Weight Dosing 101.500 kg (10/23/23 2:09 PM) [place] Body Weight Calculated 57 kg (10/23/23 2:09 PM) Height 165.10 cm (10/23/23 2:09 PM) Height/Length Measured (inches) 65 inch (10/23/23 2:09 PM) BSA Measured 2.16 m2 (10/23/23 2:09 PM) Body Mass Index 37.24 kg/m2 (10/23/23 2:09 PM) Social History Social History Type Response Tobacco Never tobacco user T obacco Use:. 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 Katlyn Hallman, DO 08/12/22 Non Biological Knee L Device Identifier Serial Number Lot or Batch Number Manufacturing Date Expiration Date Distinct Identification Code MRI Safety Implantable Status Assigning Authority Unknown NA [id number] Unknown 08/07/24 Unknown Unknown Active Unknown Unknown N/A [id number] 2 Unknown 06/10/32 Unknown Unknown Active Unknown Unknown NA [id number] 1 Unknown 04/01/27 Unknown Unknown Active Unknown Unknown N/A [id number] 2 Unknown 12/07/31 Unknown Unknown Active Unknown Unknown N/A [id number] 2 Unknown 12/15/26 Unknown Unknown Active Unknown Physician Outpatient Note * Willis Salgado MD: PERFORM Event Display: Office Clinic Note Physician Authored Date: [id number] YVETTE DRAPER :1945 Age:78 years Sex:Female Visit Date:10/23/2023 Primary Care Physician: Mally Vazquez APRN Chief Complaint Pt. is here today for f/u hospital D/C ??for dehydration Pt. vomited on the way to her appt. secondtime at her appt. 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 I wanted to readmit her or send her to ED for labs and IVF but pt rather go home and try to orally hydrate and promised to return to ED if she cannot tolerate oral liquids. Pt is fully with her mental faculties. Physical Exam Vitals & Measurements T:??37.4?C ??(Tympanic)?? HR:??82??(Apical)?? BP:??118/62?? SpO2:??96%?? HT:??165.10??cm?? WT:??101.5??kg?? BMI:??37.24?? BSA:??2.16?? alert and oriented, appropriate No facial droop, speech clear, no jaundice H:RRR no mgr Assessment/Plan 1.??Dehydration syndrome??E86.0 2.??Vomiting??R11.10 Nausea and vomiting unknown reason. Pt will attempt to hydrate at home, if unable or symptoms worsen will return to ED, lives alone but son calling her every hour to check up on her. Pt appears to be well aware of her medical history and health. Problem List/Past Medical History Ongoing Acquired hypothyroidism [...] Total abdominal hysterectomy and bilateral salpingo-oophorectomy Medications Albuterol (Eqv-Proventil HFA) 90 mcg/inh inhalation aerosol, [...] adult, oral tablet, 1 tab, Oral, Daily [employer] oral capsule Please provide one touch [...] 08/02/2022 Recorded Comments : RD done at [place] Lot: [id number] exp: 05/08/2023 Sanofi SARS-CoV-2 mRNA (darlene 12y+) bival 08/02/2022 Recorded Comments : Lot: [id number] Exp: 06/08/23 LD done at [place] Electronically Signed on 10/23/23 03:09 PM Willis Salgado MD Patient Care team information Care Team Personnel Name: Sanaz Fang APRN, Position: Physician Member Role: Nurse Practitioner Address: Address: [address] [place] [address] Name: Anabel Hallman APRN Position: Physician Member Role: Nurse Practitioner Address: Address: [address] [place] [address] Name: Mally Vazquez APRN Position: Physician Member Role: Primary Care Physician Address: Address: [address] [place] [address] [place] Care Team Related Persons Name: LAURA LEON
--- OUTSIDE RECORDS SUMMARY | 2024-04-25 04:08 | XMS_ITS | Continuity of Care Document ---
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) - Chronic kidney disease, stage 3a(Final) - Discharge Disposition: Home or Self Care Attending [...] 08/02/22 Recorded 1Result Comment: RD done at [place] Lot: [id number] exp: 05/08/2023 Sanofi 2Result Comment: Lot: [id number] Exp: 06/08/23 LD done at [place] Medications Albuterol (Eqv-Proventil HFA) 90 mcg/inh inhalation aerosol 1 puffs, Inhale, every 4 hr, PRN as needed for wheezing, Do not exceed 12 inhalations in a 24-hour period., # 1 EA, 0 Refill(s), Pharmacy: [id number], 170, cm, 11/11/22 12:19:00 EST, [...] taking., # 12 tab, 1 Refill(s), Pharmacy: [email or web address], 170, cm, 11/11/22 12:19:00 EST, Height/Length Dosing, 96, kg, 11/11/22 12:19:00 EST, Weight Dosing Start Date: 02/03/23 Stop Date: 07/21/23 Status: [...] evening, # 90 tab, 3 Refill(s), Pharmacy: [email or web address],114.09, cm, 08/12/22 16:18:00 EDT, Height/Length [...] morning, # 90 tab, 3 Refill(s), Pharmacy: [facility],114.09, cm, 08/12/22 16:18:00 EDT, Height/Length Dosing, 165, kg, 08/12/22 16:18:00 EDT, Weight Dosing Start Date: 10/24/22 Stop Date: 10/19/23 Status: Ordered gabapentin 100 mg oral capsule 100 mg = 1 cap, Oral, Daily, # 90 cap, 0 Refill(s), Pharmacy: [email or web address], 170, cm, 11/11/22 12:19:00 EST, Height/Length Dosing, 96, kg, 11/11/22 12:19:00 EST, Weight Dosing Start Date: 06/05/23 Stop Date: 09/03/23 Status: Ordered levothyroxine 137 mcg (0.137 mg) oral tablet See Instructions, TAKE 1 TABLET DAILY IN THE MORNING ON AN EMPTY STOMACH, # 90 tab, 3 Refill(s), Pharmacy: [email or web address], 170, cm, 11/11/22 12:19:00 EST, Height/Length Dosing, 96, kg,11/11/22 12:19:00 EST, Weight Dosing Start Date: 04/14/23 Status: Ordered losartan 100 mg oral tablet 100 mg = 1 tab, Oral, Daily, # 90 tab, 3 Refill(s), Pharmacy: [facility], 114.09, cm, 08/12/22 16:18:00 EDT, Height/Length Dosing, 165, kg, 08/12/22 16:18:00 EDT, Weight Dosing Start Date: 10/24/22 Stop Date: 10/19/23 Status: Ordered metFORMIN 500 mg oral tablet 500 mg = 1 tab, Oral, every evening, # 90 tab, 3 Refill(s), Pharmacy: [facility], 114.09, cm, 08/12/22 16:18:00 EDT, Height/Length Dosing, 165, kg, 08/12/22 16:18:00 EDT, Weight Dosing Start Date: 10/24/22 Stop Date: 10/19/23 Status: Ordered metoprolol tartrate 25 mg oral tablet 25 mg = 1 tab, Oral, BID, # 180 tab, 3 Refill(s), Pharmacy: [facility], 114.09, cm, 08/12/22 16:18:00 EDT, Height/Length Dosing, 165, kg, 08/12/22 16:18:00 EDT, Weight Dosing Start Date: 10/24/22 Stop Date: 10/19/23 Status: Ordered multivitamin adult, oral tablet 1 tab, Oral, Daily Start Date: 08/11/22 Status: Ordered Shweeb oral capsule 8 EA, TAKE 1 CAPSULE [...] to Fibroids Results Laboratory List Name Date Basic Metabolic Panel (BMP) 07/06/23 Hgb A1c (Hemoglobin A1C) 07/06/23 Most recent to oldest [Reference Range]: 1 BUN [8-26 mg/dL] 51 mg/dL *HI* (07/06/23 10:43 AM) Glucose Level [74-106 mg/dL] 110 mg/dL *HI* (07/06/23 10:43 AM) Potassium Level [3.5-5.1 mmol/L] 4.6 mmo l/L (07/06/23 10:43 AM) Osmolality [275-295 mOsm/kg] 297 mOsm/kg *HI* (07/06/23 10:43 AM) Sodium Level [134-143 mmol/L] 142 mmol/L (07/06/23 10:43 AM) Calcium Level [8.9-10.3 mg/dL] 9.0 mg/dL (07/06/23 10:43 AM) CO2 [22-32 mmol/L] 28 mmol/L (07/06/23 10:43 AM) eAvg Glucose [70-105 mg/dL] 120 mg/dL *HI* (07/06/23 10:43 AM) Chloride Level [98-111 mmol/L] 103 mmol/ L (07/06/23 10:43 AM) BUN/Creat Ratio [8.0-20.0] 36.7 *HI* (07/06/23 10:43 AM) Hgb A1c Percent [4.0-6.0 %] 5.8 % (07/06/23 10:43 AM) .Hb 12.4 g/dL *NA* (07/06/23 10:43 AM) .Hgb A1c 0.5 g/dL *NA* (07/06/23 10:43 AM) Creatinine Level [0.44-1.00 mg/dL] 1.39 mg/dL *HI* (07/06/23 10:43 AM) Anion Gap [3.0-12.0] 11.0 (07/06/23 10:43 AM) eGFR CKD-EPI [>=60 mL/min/1.73 m2] 39 mL /min/1.73 m2 *LOW* (07/06/23 10:43 AM) Social History Social History Type Response Tobacco Never tobacco user T obacco Use:. 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 Prateekemiliana Richelle, 08/12/22 Non Biological Knee L Device Identifier Serial Number Lot or Batch Number Manufacturing Date Expiration Date Distinct Identification Code MRI Safety Implantable Status Assigning Authority Unknown NA [id number] Unknown 08/07/24 Unknown Unknown Active Unknown Unknown N/A [id number] 2 Unknown 06/10/32 Unknown Unknown Active Unknown Unknown NA [id number] Unknown 04/01/27 Unknown Unknown Active Unknown Unknown N/A [id number] 2 Unknown 12/07/31 Unknown Unknown Active Unknown Unknown N/A [id number] 2 Unknown 12/15/26 Unknown Unknown Active Unknown Patient Care team information Care Team Personnel Name: Sanaz Fang APRN, Position: Physician Member Role: Nurse Practitioner Address: Address: [address] [place] [address] Name: Anabel Hallman APRN Position: Physician Member Role: Nurse Practitioner Address: Address: [address] [place] [address] Name: Mally Vazquez APRN Position: Physician Member Role: Primary Care Physician Address: Address: [address] [place] [address] [place] Care Team Related Persons Name: LAURA LEON Address: Home
--- OUTSIDE RECORDS SUMMARY | 2024-04-25 04:08 | XMS_ITS | Continuity of Care Document ---
Author Name Unknown Organization 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 NBR [id number] Date(s): 12/02/23 - 12/07/[address] [phone] Encounter Diagnosis Influenza A(Discharge Diagnosis) - 12/02/23 Generalized weakness(Discharge Diagnosis) - 12/02/23 Chronic renal insufficiency(Discharge Diagnosis) - 12/02/23 Pulmonary embolus(Discharge Diagnosis) - 12/02/23 Hormone replacement therapy(Final) - Personal history of non-Hodgkin lymphomas(Final) - skilled nursing (current) use of oral hypoglycemic drugs(Final) - Other fci (current) drug therapy(Final) - Diabetes mellitus(Discharge Diagnosis) - 12/02/23 Idiopathic thrombocythemia(Discharge Diagnosis) - 12/02/23 Influenza due to other identified influenza virus with other respiratory manifestations(Final) - Immune thrombocytopenic purpura(Final) - Dilated cardiomyopathy(Final) - Hypertensive heart and chronic kidney disease with heart failure and stage 1 through stage 4 chronic kidney disease, or unspecified chronic kidney disease (Final) - Unspecified protein-calorie malnutrition(Final) - Acute kidney failure, unspecified(Final) - 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) - Chronic kidney disease, stage 3 unspecified(Final) - skilled nursing (current) use of anticoagulants(Final) - Anemia in chronic kidney disease(Final) - Hypothyroidism, unspecified(Final) - 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) - Unspecified asthma, uncomplicated(Final) - 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) - Hyperlipidemia, unspecified(Final) - Type 2 diabetes mellitus with diabetic peripheral angiopathy without gangrene (Final) - Heart failure, unspecified(Final) - Adult failure to thrive(Final) - Body mass index [BMI] 33.0-33.9, adult(Final) - Disorientation, unspecified(Final) - Gastro-esophageal reflux disease without esophagitis(Final) - 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 unsure what they got Assessment and Plan Extracted from: Title:Discharge Note Author:David Flores MD D ate:12/07/23 1.??Influenza A??J10.1 Tamiflu completed for 5 days??doing well except for some mild wheezing, on nebulizers Ordered: Discharge Patient, 12/07/23 11:48:00 EST ?? 2.??Generalized weakness??R53.1 Multifactorial including??large amount of chronic medical disease??a lot of hospitalizations and weakness.?? We will attempt to get her stronger with some rehab??for her goal of going back home??week or 2 from now Ordered: Discharge Patient, 12/07/23 11:48:00 EST ?? 3.??Chronic renal insufficiency??N18.9 Acute kidney injury at??admission 1.6, creatinine down to 1.21 we stop checking Ordered: Discharge Patient, 12/07/23 11:48:00 EST ?? 4.??Pulmonary embolus??I26.99 She continues on Eliquis with a low platelets without any??incident which was recommended by hematology Ordered: Discharge Patient, 12/07/23 11:48:00 EST ?? 5.??Idiopathic thrombocythemia??D47.3 Spoke with hematology when her platelets started dropping getting down to 31.?? They stated that influenza was highly likely cause of this and 4 days of Decadron 40 mg should help.?? They stated that purely from an ITP standpoint she would be dischargeable.?? We kept her here for the aforementioned reasons??platelets up to 71 now??she is off Decadron.?? At this point would recommend rechecking labs in 1 week Ordered: Discharge Patient, 12/07/23 11:48:00 EST ?? 6.??Diabetes mellitus??E11.9 Some mild steroid-induced hyperglycemia??but she is off steroids now so anticipate this to get better Ordered: Discharge Patient, 12/07/23 11:48:00 EST ?? Extracted from: Title:Progress/SOAP Note Author:David Flores MD Date:12/06/23 1.??Influenza A??J10.1 Last day of Tamiflu, doing very well 2.??Generalized weakness??R53.1 Continuing to need rehab and physical therapy 3.??Chronic renal insufficiency??N18.9 Resolved NOVA no longer checking 4.??Pulmonary embolus??I26.99 On Eliquis 5.??Idiopathic thrombocythemia??D47.3 Last day of steroids platelets have rebounded nicely Extracted from: Title:H & P Author:Jonathon Cox APRN Khris e:12/02/23 1.??Influenza A??J10.1 tamiflu 75mg x1 then 30mg po bid x 5 days 2.??Generalized weakness??R53.1 she had always had this complaint even in previous admissions. daughter claims there has been no change , no improvement pt with ongoing flu infection will likely have generalized weakness, had pna 11/15 was also with gen weakness. last admit was for PE, had dyspnea of exertion but was said improved per dc summary checking UA, TSH may need PT/OT eval ? 3.??Chronic renal insufficiency??N18.[address] with crea 1.4 at baseline. now at 1.6 likely from dehydration from poor po intake pt also on lasix and losartan which will be held for now fluids?? NS at 100 cc/hr-- pt was mentioned with CHF in previous admit, but BNP today at 75, with soft BP reassess in am if pt needs?? lasix restarted at lower dose ? 4.??Pulmonary embolus??I26.99 apixaban 5mg po bid ?? 5.??Diabetes mellitus??E11.9 ISS aspart achs consistent carbohydrates ? 6.??Idiopathic thrombocythemia??D47.3 plt 113, no signs of bleeding monitor cbc 7.??Hypothyroidism??E03.9 levothyroxine 137mcg po daily will check TSH ? 8.??HTN (hypertension)??I10 pt on metoprolol 25mg po bid, hold for sbp less than 100mm Hg losartan, lasix on hold for now for nova BP a little soft at 91/49. on IV fluids ?? DVT prophylaxis: apixaban ?? Code status: full code ? Orders: Tylenol, 650 mg = 2 tab, Oral, Tab, every 6 hr for 30 days, PRN pain, First Dose: 12/02/23 20:35:00 EST, Stop Date: 01/01/24 20:34:00 EST, Physician Stop, Routine Eliquis, 5 mg = 1 tab, Oral, Tab, BID, First Dose: 12/02/23 21:00:00 EST, Routine Vitamin C, 500 mg = 1 tab, Oral, Tab, Daily, PRN other (see comment), First Dose: 12/02/23 20:59:00 EST, Routine atorvastatin, 10 mg = 1 tab, Oral, Tab, every evening, First Dose: 12/02/23 21:00:00 EST, Routine calcium (as carbonate)-vitamin D 600 mg-400 intl units oral tablet, 1 tab, Oral, Tab, every morning, First Dose: 12/03/23 9:00:00 EST, Routine cholecalciferol 1000 intl units oral tablet, 1,000 units = 1 tab, Oral, Tab, every morning, First Dose: 12/03/23 9:00:00 EST, Routine docusate, 100 mg = 1 cap, Oral, Cap, BID, PRN constipation, First Dose: 12/02/23 21:01:00 EST, Routine famotidine, 20 mg = 1 tab, Oral, Tab, BID, First Dose: 12/03/23 9:00:00 EST, Routine folic acid, 1 mg = 1 tab, Oral, Tab, every morning, First Dose: 12/03/23 9:00:00 EST, Routine furosemide, 40 mg = 1 tab, Oral, Tab, every morning, First Dose: 12/03/23 9:00:00 EST, Routine glucagon, 1 mg = 1 EA, Subcutaneous, Injection, As Directed, First Dose: 12/02/23 20:19:00 EST, Physician Stop, Routine Dextrose 50% injection, 25 g = 50 mL, IV Push, Injection, As Directed, First Dose: 12/02/23 20:19:00 EST, Physician Stop, Routine Mucinex, 600 mg = 1 tab, Oral, Tab-ER, BID for 30 days, First Dose: 12/02/23 21:00:00 EST, Stop Date: 01/01/24 20:59:00 EST, Physician Stop, Routine insulin aspart Sliding Scale - Low Dose, Insulin Aspart Sliding Scale See Comments, Subcutaneous, Injection, AC & bedtime, First Dose: 12/02/23 21:00:00 EST, Routine ipratropium-albuterol 0.5 mg-2.5 mg/3 mL inhalation solution, 3 mL, Nebulized Inhalation, Soln, every 4 hr for 2 days, PRN wheezing, First Dose: 12/02/23 20:15:00 EST, Stop Date: 12/04/23 20:14:00 EST, Physician Stop, Routine letrozole, 2.5 mg = 1 tab, Oral, Tab, every morning, First Dose: 12/03/23 9:00:00 EST, Routine levothyroxine, 137 mcg, Oral, Tab, every morning, First Dose: 12/03/23 6:00:00 EST, Routine Metoprolol Tartrate, 25 mg = 1 tab, Oral, Tab, BID, First Dose: 12/03/23 9:00:00 EST, Routine ondansetron, 4 mg = 2 mL, IV Push, Vial, every 6 hr, PRN nausea/vomiting, First Dose: 12/02/23 20:24:00 EST, Routine, zofran Tamiflu, 30 mg = 5 mL, Oral, Susp, BID for 5 days, Antibiotic Indication Influenza, First Dose: 12/03/23 9:00:00 EST, Stop Date: 12/08/23 8:59:00 EST, Physician Stop, Routine NS drip 1,000 mL, Total Volume (mL): 1,000, 1,000 mL, Soln-IV, IV, 100 mL/hr, Order Duration: 30 days, Start Date: 12/02/23 20:19:00 EST, Stop Date: 01/01/24 20:18:00 EST, 91 kg, Populate Charting Weight From Order, 2.04, m2 Basic Metabolic Panel, Blood, Routine, 12/02/23 20:15:00 EST, Daily, for 3 days, Lab Collect CBC w/ Diff, Blood, Routine, 12/02/23 20:15:00 EST, Daily, for 3 days, Lab Collect CT Chest w/o Contrast, 12/02/23 20:41:00 EST, Stat, Reason: dyspnea, Transport Mode: Wheelchair Diet Order, 12/02/23 20:14:00 EST, Consistent Carbohydrates Incentive Spirometry Nursing, 12/02/23 20:31:00 EST Legionella Antigen Urine, Urine, Stat Collect, 12/02/23 20:32:00 EST, Once, Nurse collect, Print Label Low risk VTE, 12/02/23 20:14:00 EST, Low risk, no mechanical VTE prophylaxis required Magnesium Level, Blood, Routine, 12/02/23 20:15:00 EST, Daily, for 3 days, Lab Collect Oxygen Therapy, SpO2 goal 92% or greater, Stop date 12/02/23 20:30:00 EST, Jonathon Colon, 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, Inpatient, 12/02/23 20:12:00 EST, 12/02/23 20:12:00 EST, 12/02/23 20:12:00 EST, 1 midnight or less Resuscitation Status, 12/02/23 20:14:00 EST, Full Code Streptococcus Pneumoniae Antigen Urine, Urine, Routine Collect, 12/02/23 20:33:00 EST, Once, Nurse collect, Print Label Up ad Milly, 12/02/23 20:14:00 EST, Constant Order, at nurse's discretion, 12/02/23 20:14:00 EST Urinalysis with Micro if Indicated and Culture if Indicated, Urine, Routine Collect, 12/02/23 20:32:00 EST, Once, Nurse collect, Print Label Vital Signs, 12/02/23 20:14:00 EST, every 4 hr (hui) Extracted from: Title:ED Provider Note Author:Kusum Aguilar MD Khris e:12/02/23 1.??Influenza A??J10.1 2.??Generalized weakness??R53.1 3.??Chronic renal insufficiency??N18.9 Orders: albuterol, 2.5 mg = 3 mL, Nebulized Inhalation, Soln, Once, PRN shortness of breath, First Dose: 12/02/23 18:32:00 EST, Physician Stop, Routine Tamiflu, 75 mg = 1 cap, Oral, Cap, Once, Antibiotic Indication Influenza, First Dose: 12/02/23 20:00:00 EST, Stop Date: 12/02/23 20:00:00 EST, Physician Stop, Routine XR Chest 1 View, 12/02/23 18:33:00 EST, Stat, Reason: dyspnea, Transport Mode: Portable Future Appointments Future Scheduled Tests Laboratory* Comprehensive Metabolic Panel 09/18/23 Radiology* US Kidney Bladder 08/31/23 Functional Status 12/07/23 Living Environment Living Situation: Ho me independently Current Home Treatments: Home Devices/Equipment Professional Skilled Services: Special Services and Community Resources: Sensory Deficits: Performed by: GERARD Ruiz-12/04/23 12:02:00 Living Situation: Current Home Treatments: Home Devices/Equipment Oxygen Professional Skilled Services: Special Services and Community Resources: Other: She states she utilizes meals on wheels at times but not all the time. She states she does not need them currently. Sensory Deficits: Performed by: Renata Edmond-12/03/23 09:06:00 Living Situation: Home independently Current Home Treatments: Home Devices/Equipment Professional Skilled Services: Special Services and Community Resources: Sensory Deficits: Performed by: Silvia Ruiz-12/02/23 23:47:00 Lives In Single level home Lives With Child(nilam) Living Situation Home independently Home Barriers None Home Equipment Oxygen Special Services and Community Resources Other: She states she utilizes meals on wheels at times but not all the time. She states she does not need them currently. Number of Stairs Outside 1 12/07/23 Personal Care Provided Diaper/Brief bryan ged 12/06/23 Activity Status ADL Up to toilet 12/04/23 Lunch Percent 50 1 12/04/23 Patient's Responsibilities Rehab Persona l ADL Location Bed 1st floor Location Main Bathroom 1st floor Location Kitchen 1st floor Prior ADL Status Independent Prior Mobility Status Independent Prior Instrumental ADL Level Independent Prior Cognitive-Communication Skills Ind ependent 12/04/23 Breakfast Percent 0 12/02/23 Family Member Travel History No recent t ravel Recent Travel History No recent travel Other exposure to Infectious Disease Non e 1Result Comment: philigy cheese steak Immunizations Given and Recorded Vaccine Date Status Refusal Reason influenza virus vaccine, inactivated 1 08/02/22 Re corded SARS-CoV-2 mRNA (darlene 12y+) bival 2 08/02/22 Recorded 1Result Comment: RD done at [place] Lot: [id number] exp: 05/08/2023 [employer] 2Result Comment: Lot: [id number] Exp: 06/08/23 LD done at [place] Medications Acidophilus 1 tab, Oral, every morning Start Date: 11/15/23 Status: Ordered Albuterol (Eqv-Proventil HFA) 90 mcg/inh inhalation aerosol 1 puffs, Inhale, every 4 hr, PRN as needed for wheezing, Do not exceed 12 inhalations in a 24-hour period., # 1 EA, 0 Refill(s), Pharmacy: [facility] #[id number], 170, cm, 11/11/22 12:19:00 EST, [...] taking., # 12 tab, 1 Refill(s), Pharmacy: [facility], 170, cm, 11/11/22 12:19:00 EST, Height/Length Dosing, 96, kg, 11/11/22 12:19:00 EST, Weight Dosing Start Date: 07/21/23 Stop Date: 01/05/24 Status: Ordered atorvastatin 10 mg oral tablet 10 mg = 1 tab, Oral, every evening, # 90 tab, 3 Refill(s), Pharmacy: [facility],114.09, cm, 08/12/22 16:18:00 EDT, Height/Length [...] BID, # 60 tab, 0 Refill(s), Pharmacy: [facility] #[id number], 165, cm, 11/24/23 16:14:00 EST, Height, 93, [...] morning, # 90 tab, 3 Refill(s), Pharmacy: [facility], 165, cm, 09/24/23 19:47:00 EST, Height, 102.2, kg, 09/24/23 19:47:00 EST, Weight Dosing Start Date: 10/13/23 Status: Ordered gabapentin 100 mg oral capsule 100 mg = 1 cap, Oral, Daily, # 90 cap, 3 Refill(s), Pharmacy: [facility], 165, cm, 09/24/23 19:47:00 EST, [...] morning, # 30 tab, 3 Refill(s), Pharmacy: [facility] #[id number], 165.1, cm, 11/14/23 22:52:00 EST, [...] stomach, # 90 tab, 3 Refill(s), Pharmacy: [facility], 170, cm, 11/11/22 12:19:00 EST, Height/Length Dosing, 96, kg, 11/11/22 12:19:00 EST, Weight Dosing Start Date: 04/14/23 Status: Ordered losartan 100 mg oral tablet 1 tab, Oral, every evening, # 90 tab, 3 Refill(s), Pharmacy: [email or web address], 165, cm, 09/24/23 19:47:00 EST, Height, 102.2, kg, 09/24/23 19:47:00 EST, Weight Dosing Start Date: 10/01/23 Status: Ordered metoprolol tartrate 25 mg oral tablet 25 mg = 1 tab, Oral, BID, # 180 tab, 3 Refill(s), Pharmacy: [facility], 170, cm,11/11/22 12:19:00 EST, Height/Length [...] instructions, # 100 EA, 3 Refill(s), Pharmacy: [facility] Start Date: 10/23/23 Status: Ordered Vitamin C 500 mg oral tablet 500 mg = 1 tab, Oral, Daily, PRN other (see comment), only during winter for immune support Start Date: 11/15/23 Status: Ordered Vitamin D3 1000 intl units oral tablet 25 mcg = 1 tab, Oral, every morning, 1000 units = 25 mcg Start Date: 11/15/23 Status: Ordered Mental Status 12/02/23 Eye Opening Response Lavon Spontaneous ly Best Verbal Response Lavon Oriented Best Motor Response Lavon Obeys comman ds Chichi Coma Score 15 [...] Coronary artery disease Confirmed Active Diabetes mellitus Confirmed Active Diabetes mellitus type 2 Confirmed [...] mellitus Confirmed Active Pulmonary embolus Confirmed Active Presbylarynges Confirmed Active Sleep apnea [...] Results Laboratory List Name Date Glucose POCT 12/07/23 Glucose POCT 12/07/23 Glucose POCT 12/07/23 .Manual Differential (LTTL) 12/07/23 CBC w/ Diff 12/07/23 CBC w/o Diff 12/06/23 Automated Diff 12/05/23 Albumin Level 12/05/23 Basic Metabolic Panel (BMP) 12/05/23 CBC w/ Diff 12/05/23 Phosphorus Level 12/05/23 Automated Diff 12/04/23 .Morphology (LTTL) 12/04/23 Basic Metabolic Panel (BMP) 12/04/23 CBC w/ Diff 12/04/23 Automated Diff 12/03/23 .Morphology (LTTL) 12/03/23 Basic Metabolic Panel (BMP) 12/03/23 Magnesium Level 12/03/23 Legionella Antigen Urine 12/03/23 Streptococcus Pneumoniae Antigen Urine Urinalysis Microscopic 12/03/23 Urinalysis with Micro if Indicated and C ulture if Indicated 12/03/23 .Morphology (LTTL) 12/02/23 BNP 12/02/23 Blood Gas Venous 12/02/23 Comprehensive Metabolic Panel (CMP) 12/02 PT/ INR 12/02/23 Procalcitonin 12/02/23 Respiratory Panel 2.1 ([employer]) 12/02/23 Thyroid Stimulating Hormone (TSH) 4 Most recent to oldest [Reference Range]: 1 2 3 WBC [4.8-10.8 K/mcL] 6.6 K/mcL (12/07/23 8:28 AM) 8.3 K/mcL (12/06/23 7:30 AM) 7.2 K/mcL (12/05/23 6:26 AM) RBC [4.20-5.40 Million/mcL] 3.17 Million /mcL *LOW* (12/07/23 8:28 AM) 3.08 Million/mcL *LOW* (12/06/23 7:30 AM) 3.03 Million/mcL *LOW* (12/05/23 6:26 AM) Segs Man 88 *NA* (12/07/23 8:28 AM) Lymph Man [20.5-51.1 %] 7.0 % *LOW* (12/07/23 8:28 AM) Neutro Auto [42.2-75.2 %] 90.7 % *HI* (12/05/23 6:26 AM) 85.4 % *HI* (12/04/23 6:00 AM) 64.4 % (12/03/23 5:42 AM) Lymph Auto [20.5-51.1 %] 7.3 % *LOW* (12/05/23 6:26 AM) 13.3 % *LOW* (12/04/23 6:00 AM) 24.6 % (12/03/23 5:42 AM) Big Stone Auto [1.7-9.3 %] 1.9 % (12/05/23 6:26 AM) 1.1 % *LOW* (12/04/23 6:00 AM) 9.7 % *HI* (12/03/23 5:42 AM) Basophil Auto [0.0-0.8 %] 0.1 % (12/05/23 6:26 AM) 0.2 % (12/04/23 6:00 AM) 0.3 % (12/03/23 5:42 AM) [place] Man [1.7-9.3 %] 1.0 % *LOW* (12/07/23 8:28 AM) Eos Man [0.00-3.00 %] 0.00 % (12/07/23 8:28 AM) Prothrombin Time [9.1-10.6 seconds] 12.7 seconds *HI* (12/02/23 6:34 PM) INR [0.9-1.1] 1.3 1 *HI* (12/02/23 6:34 PM) BUN [7-25 mg/dL] 41 mg/dL *HI* (12/05/23 6:26 AM) 31 mg/dL *HI* (12/04/23 6:00 AM) 38 mg/dL *HI* (12/03/23 5:42 AM) Glucose POC 304 *NA* (12/07/23 8:36 PM) 204 *NA* (12/07/23 11:58 AM) 190 *NA* (12/07/23 9:52 AM) UA Color [Yellow] Yellow (12/03/23 12:39 AM) UA WBC [0-3] 4-6 *ABN* (12/03/23 12:39 AM) Glucose Level [70-109 mg/dL] 194 mg/dL *HI* (12/05/23 6:26 AM) 178 mg/dL *HI* (12/04/23 6:00 AM) 111 mg/dL *HI* (12/03/23 5:42 AM) Lymph, Atyp Man 3 % *NA* (12/07/23 8:28 AM) Potassium Level [3.5-5.1 mmol/L] 4.5 mmol/L (12/05/23 6:26 AM) 4.6 mmol/L (12/04/23 6:00 AM) 3.7 mmol/L (12/03/23 5:42 AM) Baso Absolute [0.00-0.20 K/mcL] 0.00 K/mcL (12/05/23 6:26 AM) 0.00 K/mcL (12/04/23 6:00 AM) 0.00 K/mcL (12/03/23 5:42 AM) MCV [81.0-99.0 fL] 84.1 fL (12/07/23 8:28 AM) 84.7 fL (12/06/23 7:30 AM) 84.2 fL (12/05/23 6:26 AM) UA Urobilinogen [0.2] 0.2 (12/03/23 12:39 AM) RBC Morph [Normal] Abnormal *ABN* (12/07/23 8:28 AM) Abnormal *ABN* (12/04/23 6:00 AM) Abnormal *ABN* (12/03/23 5:42 AM) UA Hyal Cast [0-3] 0-3 (12/03/23 12:39 AM) UA Bili [Negative] Negative (12/03/23 12:39 AM) CO2 Total Venous [22.0-26.0 mmol/L] 28.6 mmol/L *HI* (12/02/23 6:34 PM) UA Ketones [Negative] Negative (12/03/23 12:39 AM) Legionella Ag Ur [Negative] Negative (12/03/23 12:39 AM) HCO3 Venous [22.0-29.0 mmol/L] 27.2 mmol/L (12/02/23 6:34 PM) AST [13-39 IntlUnit/L] 26 IntlUnit/L (12/02/23 6:34 PM) ALT [7-52 IntlUnit/L] 12 IntlUnit/L (12/02/23 6:34 PM) MCHC [32.0-37.0 g/dL] 32.7 g/dL (12/07/23 8:28 AM) 32.1 g/dL (12/06/23 7:30 AM) 32.9 g/dL (12/05/23 6:26 AM) Osmolality [275-295 mOsm/kg] 293 mOsm/kg (12/05/23 6:26 AM) 292 mOsm/kg (12/04/23 6:00 AM) 291 mOsm/kg (12/03/23 5:42 AM) Sodium Level [136-145 mmol/L] 139 mmol/L (12/05/23 6:26 AM) 141 mmol/L (12/04/23 6:00 AM) 141 mmol/L (12/03/23 5:42 AM) UA RBC [0-3] 0-3 (12/03/23 12:39 AM) UA Leuk Est [Negative] Small *ABN* (12/03/23 12:39 AM) Lymph Absolute [1.2-3.4 K/mcL] 0.5 K/mcL *LOW* (12/05/23 6:26 AM) 0.5 K/mcL *LOW* (12/04/23 6:00 AM) 1.0 K/mcL *LOW* (12/03/23 5:42 AM) UA Nitrite [Negative] Negative (12/03/23 12:39 AM) UA Glucose [Negative] 500 *ABN* (12/03/23 12:39 AM) Hct [37.0-47.0 %] 26.7 % *LOW* (12/07/23 8:28 AM) 26.1 % *LOW* (12/06/23 7:30 AM) 25.5 % *LOW* (12/05/23 6:26 AM) UA Bacteria [None Seen] 1+ *ABN* (12/03/23 12:39 AM) Elliptocyte 1+ *ABN* (12/04/23 6:00 AM) 1+ *ABN* (12/03/23 5:42 AM) 1+ *ABN* (12/02/23 6:34 PM) Calcium Level [8.6-10.3 mg/dL] 8.6 mg/dL (12/05/23 6:26 AM) 8.2 mg/dL *LOW* (12/04/23 6:00 AM) 7.9 mg/dL *LOW* (12/03/23 5:42 AM) Big Stone Absolute [0.1-0.6 K/mcL] 0.1 K/mcL (12/05/23 6:26 AM) 0.0 K/mcL *LOW* (12/04/23 6:00 AM) 0.4 K/mcL (12/03/23 5:42 AM) Phosphorus Level [2.5-5.0 mg/dL] 3.0 mg/dL (12/05/23 6:26 AM) Albumin Level [3.5-5.7 g/dL] 3.2 g/dL *LOW* (12/05/23 6:26 AM) 3.6 g/dL (12/02/23 6:34 PM) Protein Total [6.4-8.9 g/dL] 7.1 g/dL (12/02/23 6:34 PM) UA Protein [Negative] Negative (12/03/23 12:39 AM) MCH [27.0-31.0 pg] 27.5 pg (12/07/23 8:28 AM) 27.2 pg (12/06/23 7:30 AM) 27.7 pg (12/05/23 6:26 AM) Magnesium Level [1.9-2.7 mg/dL] 2.1 mg/dL (12/03/23 5:42 AM) Neutro Absolute [1.4-6.5 K/mcL] 6.5 K/mcL (12/05/23 6:26 AM) 3.1 K/mcL (12/04/23 6:00 AM) 2.7 K/mcL (12/03/23 5:42 AM) Bilirubin Total [0.3-1.0 mg/dL] 0.7 mg/dL (12/02/23 6:34 PM) Hgb [12.0-16.0 g/dL] 8.7 g/dL *LOW* (12/07/23 8:28 AM) 8.4 g/dL *LOW* (12/06/23 7:30 AM) 8.4 g/dL *LOW* (12/05/23 6:26 AM) NRBC Man 1 % *NA* (12/07/23 8:28 AM) Alk Phos [34-104 IntlUnit/L] 73 IntlUnit /L (12/02/23 6:34 PM) UA Blood [Negative] Negative (12/03/23 12:39 AM) MPV [7.4-10.4 fL] 10.4 fL (12/07/23 8:28 AM) 10.2 fL (12/06/23 7:30 AM) 10.4 fL (12/05/23 6:26 AM) pCO2 Addison [42.0-53.0 mmHg] 46.0 mmHg (12/02/23 6:34 PM) Band Man 1 % *NA* (12/07/23 8:28 AM) Teardrop Cells 1+ *ABN* (12/07/23 8:28 AM) UA Spec Grav [1.001-1.030] 1.010 (12/03/23 12:39 AM) Platelets [130-400 K/mcL] 71 K/mcL *LOW* (12/07/23 8:28 AM) 58 K/mcL 2 *LOW* (12/06/23 7:30 AM) 41 K/mcL 3 *CRIT* (12/05/23 6:26 AM) CO2 [21-31 mmol/L] 24 mmol/L (12/05/23 6:26 AM) 26 mmol/L (12/04/23 6:00 AM) 27 mmol/L (12/03/23 5:42 AM) Eos Absolute [0.0-0.2 K/mcL] 0.0 K/mcL (12/05/23 6:26 AM) 0.0 K/mcL (12/04/23 6:00 AM) 0.0 K/mcL (12/03/23 5:42 AM) UA Squam Epithelial [0-3] 0-3 (12/03/23 12:39 AM) TSH [0.45-5.33 mcIntlUnit/mL] 0.33 mcIntlUnit/mL *LOW* (12/02/23 6:34 PM) UA pH [5.00-9.00] 5.00 (12/03/23 12:39 AM) pH Addison [7.32-7.43 pH unit(s)] 7.38 pH unit(s) (12/02/23 6:34 PM) BNP [<=100 pg/mL] 75 pg/mL (12/02/23 6:34 PM) UA Appear [Clear] Clear (12/03/23 12:39 AM) Chloride Level [98-107 mmol/L] 109 mmol/L *HI* (12/05/23 6:26 AM) 109 mmol/L *HI* (12/04/23 6:00 AM) 107 mmol/L (12/03/23 5:42 AM) Procalcitonin [0.00-0.05 ng/mL] <0.05 ng/mL 4 (12/02/23 6:34 PM) RDW-CV [11.5-14.5 %] 16.5 % *HI* (12/07/23 8:28 AM) 16.3 % *HI* (12/06/23 7:30 AM) 16.2 % *HI* (12/05/23 6:26 AM) Adenovirus RespP-BFire [Not Detected] Not Detected (12/02/23 6:34 PM) Bordetella parapertussis RespP-BFire [Not Detected] Not Detected (12/02/23 6:34 PM) Bordetella pertussis RespP-BFire [Not Detected] Not Detected (12/02/23 6:34 PM) Chlamydophila pneumoniae RespP-BFire [Not Detected] Not Detected (12/02/23 6:34 PM) Coronavirus 229E (Not COVID-19) RP-BFire [Not Detected] Not Detected (12/02/23 6:34 PM) Coronavirus HKU1 (Not COVID-19) RP-BFire [Not Detected] Not Detected (12/02/23 6:34 PM) Coronavirus NL63 (Not COVID-19) RP-BFire [Not Detected] Not Detected (12/02/23 6:34 PM) Coronavirus OC43 (Not COVID-19) RP-BFire [Not Detected] Not Detected (12/02/23 6:34 PM) Human Metapneumonovirus RespP-BFire [Not Detected] Not Detected (12/02/23 6:34 PM) Human Rhinovirus/Enterovirus RespP-BFir [Not Detected] Not Detected (12/02/23 6:34 PM) Influenza A H3 RespP-BFire [Not Detected] Detected *ABN* (12/02/23 6:34 PM) Influenza B RespP-BFire [Not Detected] Not Detected (12/02/23 6:34 PM) Mycomplasma pneumoniae RespP-BFire [Not Detected] Not Detected (12/02/23 6:34 PM) Parainfluenza Virus 1 RespP-BFire [Not Detected] Not Detected (12/02/23 6:34 PM) Parainfluenza Virus 2 RespP-BFire [Not Detected] Not Detected (12/02/23 6:34 PM) Parainfluenza Virus 3 RespP-BFire [Not Detected] Not Detected (12/02/23 6:34 PM) Parainfluenza Virus 4 RespP-BFire [Not Detected] Not Detected (12/02/23 6:34 PM) Respiratory Syncytial Virus RespP-BFire [Not Detected] Not Detected (12/02/23 6:34 PM) A/G Ratio [1.0-2.5 g/dL] 1.0 g/dL (12/02/23 6:34 PM) BUN/Creat Ratio [8.0-20.0] 34.2 *HI* (12/05/23 6:26 AM) 28.2 *HI* (12/04/23 6:00 AM) 27.1 *HI* (12/03/23 5:42 AM) Globulin [2.3-3.5 g/dL] 3.5 g/dL (12/02/23 6:34 PM) Ovalocytes 1+ *ABN* (12/07/23 8:28 AM) Spherocyte 1+ (12/07/23 8:28 AM) Plt Giant Few *ABN* (12/07/23 8:28 AM) Slide Review Man Diff (12/07/23 8:28 AM) Not Indicated (12/05/23 6:26 AM) Morph Only (12/04/23 6:00 AM) UA Culture Ind?. [No] Yes (12/03/23 12:39 AM) Urine Srce Clean Catch (12/03/23 12:39 AM) Plt Large Few *ABN* (12/07/23 8:28 AM) Few *ABN* (12/04/23 6:00 AM) Few *ABN* (12/03/23 5:42 AM) Abs Baso Man [0.0-0.2 K/mcL] 0.0 K/mcL (12/07/23 8:28 AM) Abs Eos Man [0.0-0.2 K/mcL] 0.0 K/mcL (12/07/23 8:28 AM) Abs Lymph Man [1.2-3.4 K/mcL] 0.5 K/mcL *LOW* (12/07/23 8:28 AM) Abs Big Stone Man [0.1-0.6 K/mcL] 0.1 K/mcL (12/07/23 8:28 AM) Abs Neut Man [1.4-6.5 K/mcL] 5.9 K/mcL (12/07/23 8:28 AM) Anisocyte 1+ (12/07/23 8:28 AM) 1+ (12/04/23 6:00 AM) 1+ (12/03/23 5:42 AM) Creatinine Level [0.60-1.20 mg/dL] 1.20 mg/dL (12/05/23 6:26 AM) 1.10 mg/dL (12/04/23 6:00 AM) 1.40 mg/dL *HI* (12/03/23 5:42 AM) SARS-CoV-2 (COVID-19) RP-BFire [Not Detected] Not Detected (12/02/23 6:34 PM) Plt Estimation Decreased *ABN* (12/07/23 8:28 AM) Decreased *ABN* (12/04/23 6:00 AM) Decreased *ABN* (12/03/23 5:42 AM) Employed in healthcare? Unknown *NA* (12/02/23 6:34 PM) Symptomatic as defined by CDC? Unknown *NA* (12/02/23 6:34 PM) Hospitalized due to COVID-19? Unknown *NA* (12/02/23 6:34 PM) In ICU? Unknown *NA* (12/02/23 6:34 PM) Group care resident? Unknown *NA* (12/02/23 6:34 PM) status? Unknown *NA* (12/02/23 6:34 PM) Anion Gap [3.0-12.0] 6.0 (12/05/23 6:26 AM) 6.0 (12/04/23 6:00 AM) 7.0 (12/03/23 5:42 AM) Baso Man [0.0-0.8 %] 0.0 % (12/07/23 8:28 AM) Eos, Auto [0.00-3.00 %] 0.00 % (12/05/23 6:26 AM) 0.00 % (12/04/23 6:00 AM) 1.00 % (12/03/23 5:42 AM) Streptococcus Pneumonia Antigen [Negative] Negative (12/03/23 12:39 AM) eGFR CKD-EPI [>=60 mL/min/1.73 m2] 46 mL/min/1.73 m2 *LOW* (12/05/23 6:26 AM) 51 mL/min/1.73 m2 *LOW* (12/04/23 6:00 AM) 39 mL/min/1.73 m2 *LOW* (12/03/23 5:42 AM) 1Interpretive Data: THERAPEUTIC INR RANGES FOR WARFARIN Uncomplicated venous thromboembolic disease 2-3 Lupus Anticoagulant and recurrent thrombosis 3-3.5 Mechanical prosthetic valve or recurrent thrombosis 2.5-3.5 2Result Comment: Results verified by repeat analysis. 3Result Comment: Critical Result PLT:41 Called to and read back by: AMARIS RODRIGUEZ at: 12/05/2023 07:41:14 by:PURNIMA. 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 Levels >2.00 ng/mL indicate a highrisk of severe sepsis. Concentrations between 0.5 and 2.0 ng/mL should be interpreted according to the patient's history and clinical impression. It is recommended to retest PCT within 6-24 hours for any concentrations <2.00 ng/mL. Orders for Microbiology Reports Name Date Urine Culture 12/02/23 Microbiology Reports TEST:Urine Culture STATUS:Auth (Verified) BODY SITE: SOURCE:Urine, Clean Catch COLLECTED DATE/TIME:12/03/23 12:39 AM FINAL REPORT 25,000 - 50,000 cfu/ml Mixed Gram Positive Shanell Mixed bacterial morphotypes present. Possible contamination. Suggest appropriate collection if clinically indicated. Radiology Reports * Exam Date Time Procedure Performing Provider Status 12/04/23 3:[address] Head w/o Contrast Danyell Blake; Giselle th (Verified) Notes: (CT Head w/o Contrast) Reason For Exam: AMS, low plts CT Head w/o Contrast EXAM DESCRIPTION: CT Head w/o Contrast 12/04/2023 INDICATION: AMS, LOW PLTS TECHNIQUE: All CT scans at this facility use at least one of these dose optimization techniques: Automated exposure control; mA and/or kV adjustment per patient size (includes targeted exams where dose is matched to clinical indication); or iterative reconstruction. Axial CT images of the head without contrast. Patient motion artifact on 1st series with no significant motion artifact on 2nd obtained series. COMPARISON: CT head without contrast from 11/14/[address] head pre and post contrast from 08/15/2022 FINDINGS: No acute intracranial hemorrhage, mass effect or midline shift. Stable prominence of the ventricular system and cortical sulci consistent with generalized cerebral atrophy. Araiza-white differentiation is maintained. Basal cisterns remain patent. Small ovoid intermediate attenuation extra-axial lesion along the right aspect of the tentorium consistent with known meningioma which was described on prior CT head examination from 08/15/2022. No significant interval change in size. Mild bilateral maxillary and ethmoid sinus mucosal thickening with small amount of left sphenoid sinus fluid. The calvarium appears intact. IMPRESSION: No acute intracranial hemorrhage, mass effect or midline shift. Mild generalized cerebral atrophy. Small meningioma along the right aspect of the tentorium which was described on previous CT head examination from 08/15/2022. Paranasal sinus inflammatory changes as described above. JOB #: [id number] Final Signed by: Kishore Parra MD Signed (Electronic Signature): 12/04/2023 4:06 pm * Exam Date Time Procedure Performing Provider Status 12/02/23 11:[address] Chest w/o Contrast Eliel Sanders (Verified) Notes: (CT Chest w/o Contrast) Reason For Exam: dyspnea CT Chest w/o Contrast PROCEDURE INFORMATION: Exam: CT Chest Without Contrast; Diagnostic Exam date and time: 12/02/2023 10:56 PM Age: 78 years old Clinical indication: Dyspnea TECHNIQUE: Imaging protocol: Diagnostic computed tomography of the chest without contrast. Radiation optimization: All CT scans at this facility use at least one of these dose optimization techniques: automated exposure control; mA and/or kV adjustment per patient size (includes targeted exams where dose is matched to clinical indication); or iterative reconstruction. COMPARISON: CT ANGIO CHEST 11/24/2023 10:22 AM FINDINGS: Lungs: Scattered peripheral airspace disease is within the right lower lobe, left lower lobe, right upper lobe and left upper lobe. This is most prominent at the right lower lobe. Pattern could represent early or resolving multilobar pneumonia. There is 3.1 mm indeterminate nodule at the superior segment of the right lower lobe seen best on series 8, image 79. For patients at low risk (minimal or absent history of smoking and of other known risk factors), no routine follow-up is indicated. For patients at high risk (history of smoking or of other known risk factors), consider optional CT Chest at 12 months. (Reference: Sarika) References: Sarika Martinez, et al. Guidelines for Management of Incidental Pulmonary Nodules Detected on CT Images: From the Fleischner Society 2017. Radiology. 2017;284(1):228-243. Pleural spaces: Unremarkable. No pneumothorax. No pleural effusion. Heart: Status post aortic valve replacement. Coronary arteries: There is coronary artery calcified atherosclerotic plaque. Lymph nodes: Unremarkable. No enlarged lymph nodes. Vasculature: There is extensive calcification of the thoracic aorta, proximal abdominal aorta and multiple branch vessels. Gallbladder and bile ducts: There is a partially calcified gallstone measuring up to 2.9 cm. There are multiple other adjacent calcified gallstones Bones/joints: There is diffuse osteopenia. Soft tissues: Unremarkable. IMPRESSION: 1. Multiple scattered airspace disease which is most prominent at the right lower lobe. 2. Right lower lobe nodule as described above see guidelines above 3. Cholelithiasis 4. Coronary artery disease THIS DOCUMENT HAS BEEN ELECTRONICALLY SIGNED BY BERNARDINO MAYO MD on 12/02/2023 11:36 PM Final Signed by: Bernardino Mayo MD Signed (Electronic Signature): 12/02/2023 11:36 pm * Exam Date Time Procedure Performing Provider Status 12/02/23 7:26 PM XR Chest 1 View Eliel Sanders (Verified) Notes: (XR Chest 1 View) Reason For Exam: dyspnea XR Chest 1 View PROCEDURE INFORMATION: Exam: XR Chest Exam date and time: 12/02/2023 7:22 PM Age: 78 years old Clinical indication: Dyspnea TECHNIQUE: Imaging protocol: Radiologic exam of the chest. Views: 1 view. COMPARISON: CT ANGIO CHEST 11/24/2023 10:22 AM FINDINGS: Lungs: Hyperexpansion suggests COPD or emphysema. Vague opacity at the lingular segment and left lower lobe could represent subsegmental atelectasis. Pleural spaces: Unremarkable. No pleural effusion. No pneumothorax. Heart/Mediastinum: Status post sternotomy and cardiac valve replacement Bones/joints: See Heart/Mediastinum finding. IMPRESSION: Postoperative changes. Lingular segment atelectasis suspected THIS DOCUMENT HAS BEEN ELECTRONICALLY SIGNED BY BERNARDINO MAYO MD on 12/02/2023 07:59 PM Final Signed by: Bernardino Mayo MD Signed (Electronic Signature): 12/02/2023 7:59 pm Vital Signs Most recent to oldest [Reference Range]: 1 2 3 Temperature Axillary [36-38 Deg C] 35.7 Deg C *LOW* (12/07/23 7:07 AM) 36 Deg C (12/06/23 11:09 PM) 36.1 Deg C (12/06/23 7:35 PM) Temperature Temporal Artery [36-38 Deg C] 36.6 Deg C (12/06/23 2:30 PM) 36.6 Deg C (12/06/23 10:15 AM) 36.6 Deg C (12/05/23 9:16 PM) Temperature Temporal Artery (DegF) [97.3-100 Deg F] 97.52 Deg F (12/05/23 1:33 PM) 97.52 Deg F (12/05/23 11:32 AM) 96.98 Deg F *LOW* (12/05/23 7:05 AM) Peripheral Pulse Rate [60-100 bpm] 76 bpm (12/07/23 7:07 AM) 69 bpm (12/06/23 11:09 PM) 85 bpm (12/06/23 7:36 PM) Heart Rate Monitored [60-100 bpm] 85 bpm (12/04/23 6:22 PM) Respiratory Rate [12-24 br/min] 22 br/min (12/07/23 7:07 AM) 23 br/min (12/06/23 11:09 PM) 18 br/min (12/06/23 7:35 PM) Blood Pressure [90-140/60-90 mmHg] 155/57mmHg *HI* (12/07/23 7:07 AM) 154/69mmHg *HI* (12/06/23 11:09 PM) 143/71mmHg *HI* (12/06/23 7:35 PM) Mean Arterial Pressure, Cuff [70-110 mmHg] 97 mmHg (12/06/23 11:09 PM) 97 mmHg (12/06/23 2:30 PM) 73 mmHg (12/05/23 9:16 PM) Blood Pressure Location Right arm (12/06/23 11:09 PM) Right leg (12/05/23 6:13 PM) Right arm (12/05/23 1:33 PM) Blood Pressure Method Automatic (12/06/23 11:09 PM) Automatic (12/05/23 6:13 PM) Automatic (12/05/23 1:33 PM) Weight 91 kg (12/02/23 6:10 PM) Weight Dosing 91.000 kg (12/02/23 6:10 PM) Weight Estimated 91 kg (12/02/23 11:31 PM) Height 165 cm (12/02/23 6:10 PM) Body Mass Index 33.43 kg/m2 (12/02/23 6:10 PM) Body Mass Index Estimated 33.43 kg/m2 (12/02/23 11:31 PM) Height/Length Estimated 165 cm (12/02/23 11:31 PM) Social History Social History Type Response Tobacco Never tobacco user T obacco Use:. 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 Katlyn Hallman, DO 08/12/22 Non Biological Knee L Device Identifier Serial Number Lot or Batch Number Manufacturing Date Expiration Date Distinct Identification Code MRI Safety Implantable Status Assigning Authority Unknown NA [id number] Unknown 08/07/24 Unknown Unknown Active Unknown Unknown N/A [id number] Unknown 06/10/32 Unknown Unknown Active Unknown Unknown NA [id number] Unknown 04/01/27 Unknown Unknown Active Unknown Unknown N/A [id number] 2 Unknown 12/07/31 Unknown Unknown Active Unknown Unknown N/A [id number] 2 Unknown 12/15/26 Unknown Unknown Active Unknown Physician Emergency department Note * Kusum Aguilar MD: PERFORM Event Display: ED Note Physician Authored Date: [id number] YVETTE DRAPER :1945 Age:78 years Sex:Female Visit Date:12/02/2023 Primary Care Physician: Mally Vazquez APRN Basic Information Time Seen: Kusum Aguilar MD / 12/02/2023 18:20 Chief Complaint Admitted November 24 for CHF, pneumonia and bilateral lung clots for which she has been on doxycycline and eliquis. Pt states still coughing, still tired, family feels she's no better. History Of Present Illness: Patient is a 78-year-old female presents today for evaluation of generally feeling unwell.?? The patient was recently discharged from the hospital 1 week ago after she was found to have several smallsegmental PEs and was started on Eliquis.?? At that time she had an echocardiogram that showed no evidence of right heart strain, negative troponins. ??The patient has a follow-up appointment in 8 days with her PCP.?? Patient's family called the PCP today??because??they said that she was continuingto feel unwell. ??The PCP recommended that they come here.?? The patient has not had any fevers or chills. ??No chest pain. ??She has had Continued cough.?? Family also says that she tends to vomit 1time per night. ??The patient??did not offer this.?? No diarrhea.?? Patient's family is concerned that she has continued to feel??unwell since??the beginning of November. Review of Systems: CONSTITUTIONAL:??No fevers or chills. ??Generalized weakness EYES:??No change in vision. ENT:??No sore throat. ??No headache. ??No neck pain. CARDIOVASCULAR:??No chest pain, palpitations or passing out episodes. RESPIRATORY:??+cough, shortness of breath no hemoptysis. GI:??No abdominal pain. +nausea, vomiting no diarrhea. :??No change in urination. SKIN:??No rash. NEUROLOGIC:??No numbness or weakness. MUSCULOSKELETAL:??No swelling or pain. PSYCHIATRIC:??No depression. LYMPH:??No swelling. Review of systems otherwise as stated in HPI Physical Exam Vitals & Measurements T:??36.3?C ??(Temporal Artery)?? HR:??87??(Peripheral)?? RR:??18?? BP:??107/49?? SpO2:??93%?? HT:??165??cm?? WT:??91??kg?? BMI:??33.43?? O2 Therapy:??Room air?? General: ??AAOx3. ??GCS15. ??No acute distress, answering questions appropriately.?? Appears generally deconditioned Head: ??Atraumatic; Normocephalic Eye: ??PERRLA; EOMI; no scleral icterus / pallor ENT: moist mucous membranes; no epistaxis. No stridor. Neck: ??Active ROM intact; Trachea Midline. ??No JVD. ??No meningismus appreciated. Skin: Warm, dry Chest:??Wheezing to auscultation bilaterally. Heart: RRR; no murmur, rub, or gallop Abdomen: ??Soft, non-tender, non-distended, no guarding, rebound, or rigidity. No Hepatosplenomegaly Musculoskeletal: ??ROM intact of all extremities/joints without discomfort. ??Sensation grossly intact throughout. ??No obvious deformity. ??Strength Intact 5/5 throughout. ?? Neuro: Alert and oriented. Answering questions appropriately with clear speech. Motor and sensory grossly normal in all extremities.?? Medical Decision Making: Is a 78-year-old female with a history of diabetes, chronic renal insufficiency and recent pneumonia with PEs on Eliquis who presents emergency department today for continued generalized weakness.?? Patient's VBG was reassuring.?? Patient CBC shows some chronic anemia which is unchanged.?? INR was 1.3.?? Patient's CMP shows a creatinine of 1.6 Which is consistent with prior.?? Respiratory panel di d come back with influenza A which is I think likely the likely source for the patients symptoms. ??The conversation with the patient's daughter??who is concerned about her mother and??has significant distrust of the medical system.?I did review the??findings from today's workup??and??treatment s trategies.?Attempted to provide reassurance??with plan.?I spoke with the pharmacist from [facility]??who suggest based on the patient's creatinine clearance a one-time dose of 75 mg followed by 30 mg twice daily.?? I then spoke with the hospitalist??Tanner??about admission for the patient. Procedure No Qualifying Data Assessment/Plan 1.??Influenza A??J10.1 2.??Generalized weakness??R53.1 3.??Chronic renal insufficiency??N18.9 Orders: albuterol, 2.5 mg = 3 mL, Nebulized Inhalation, Soln, Once, PRN shortness of breath, First Dose: 12/02/23 18:32:00 EST, Physician Stop, Routine Tamiflu, 75 mg = 1 cap, Oral, Cap, Once, Antibiotic Indication Influenza, First Dose: 12/02/23 20:00:00 EST, Stop Date: 12/02/23 20:00:00 EST, Physician Stop, Routine XR Chest 1 View, 12/02/23 18:33:00 EST, Stat, Reason: dyspnea, Transport Mode: Portable Medication Reconciliation Unchanged albuterol (Albuterol (Eqv-Proventil HFA) [...] 30 minutes after taking.. Refills: 1. ?? apixaban (Eliquis 5 mg oral tablet)1 tab Oral (given by mouth) 2 times a day. Refills: 0. ?? apixaban (Eliquis 5 mg oral tablet)2 tab Oral (given by mouth) 2 times a day. Refills: 0. ?? ascorbic acid (Vitamin C 500 mg [...] hysterectomy and bilateral salpingo-oophorectomy Medication Administration Given ipratropium-albuterol 0.5 mg-2.5 mg/3 mL inhalation solution, 3 mL, Nebulized Inhalation Allergies Flomax??(Dizziness) narcotic analgesics sulfa drugs??(Rash, Hallucinations) Social History Alcohol Past Electronic Cigarette/Vaping Electronic Cigarette Use: Never. Employment/School Retired Home/Environment Lives with Alone, Son Josias stays at her house when needed. . Living situation: Home with assistance. Home equipment: Walker. Substance Use Never Tobacco Never tobacco user Tobacco Use:. Family History Breast cancer: Mother and Aunt/Uncle. Cancer: Son. Heart: Mother and Father. Lab Results Blood Gases?? LATEST RESULTS?? HISTORICAL RESULTS?? pH Addison?? 12/02/23 18:34?? 7.38?? 11/14/23?? 7.43?? pCO2 Addison?? 12/02/23 18:34?? 46.0?? 11/14/23?? 46.0?? HCO3 Venous?? 12/02/23 18:34?? 27.2?? 11/14/23?? 30.5 ??High?? CO2 Total Venous?? 12/02/23 18:34?? 28.6 ??High?? 11/14/23?? 31.9 ??High? CBC and Differential?? LATEST RESULTS?? HISTORICAL RESULTS?? WBC?? 12/02/23 18:34?? 6.4?? 11/25/23?? 7.9?? RBC?? 12/02/23 18:34?? 3.65 ??Low?? 11/25/23?? 3.36 ??Low?? Hgb?? 12/02/23 18:34?? 9.8 ??Low?? 11/25/23?? 9.5 ??Low?? Hct?? 12/02/23 18:34?? 31.6 ??Low?? 11/25/23?? 29.2 ??Low?? MCV?? 12/02/23 18:34?? 86.6?? 11/25/23?? 86.8?? MCH?? 12/02/23 18:34?? 27.0?? 11/25/23?? 28.1?? MCHC?? 12/02/23 18:34?? 31.1 ??Low?? 11/25/23?? 32.4?? RDW-CV?? 12/02/23 18:34?? 17.0 ??High?? 11/25/23?? 16.1 ??High?? Platelets?? 12/02/23 18:34?? 113 ??Low?? 11/25/23?? 228?? MPV?? 12/02/23 18:34?? 9.3?? 11/25/23?? 8.6?? Neutro Auto?? 12/02/23 18:34?? 78.2 ??High?? 11/25/23?? 77.3 ??High?? Lymph Auto?? 12/02/23 18:34?? 11.6 ??Low?? 11/25/23?? 11.3 ??Low?? Big Stone Auto?? 12/02/23 18:34?? 8.7?? 11/25/23?? 10.0 ??High?? Eos, Auto?? 12/02/23 18:34?? 0.80?? 11/25/23?? 1.00?? Basophil Auto?? 12/02/23 18:34?? 0.7?? 11/25/23?? 0.4?? Neutro Absolute?? 12/02/23 18:34?? 5.0?? 11/25/23?? 6.1?? Lymph Absolute?? 12/02/23 18:34?? 0.7 ??Low?? 11/25/23?? 0.9 ??Low?? Big Stone Absolute?? 12/02/23 18:34?? 0.6?? 11/25/23?? 0.8 ??High?? Eos Absolute?? 12/02/23 18:34?? 0.1?? 11/25/23?? 0.1?? Baso Absolute?? 12/02/23 18:34?? 0.00?? 11/25/23?? 0.0?? RBC Morph?? 12/02/23 18:34?? Abnormal Abnormal?? 11/16/23?? Abnormal Abnormal?? Anisocyte?? 12/02/23 18:34?? 1+?? 11/14/23?? 1+?? Elliptocyte?? 12/02/23 18:34?? 1+ Abnormal?? 11/14/23?? 1+ Abnormal?? Plt Estimation?? 12/02/23 18:34?? Decreased Abnormal?? 11/16/23?? Normal?? Plt Large?? 12/02/23 18:34?? Few Abnormal? Slide Review?? 12/02/23 18:34?? Morph Only?? 11/25/23?? Not Indicated? Coagulation?? LATEST RESULTS?? HISTORICAL RESULTS?? Prothrombin Time?? 12/02/23 18:34?? 12.7 ??High?? 11/24/23?? 10.8 ??High?? INR?? 12/02/23 18:34?? 1.3 ??High?? 11/24/23?? 1.1? Routine Chemistry?? LATEST RESULTS?? HISTORICAL RESULTS?? Sodium Level?? 12/02/23 18:34?? 138?? 11/25/23?? 141?? Potassium Level?? 12/02/23 18:34?? 4.2?? 11/25/23?? 3.8?? Chloride Level?? 12/02/23 18:34?? 103?? 11/25/23?? 107?? CO2?? 12/02/23 18:34?? 26?? 11/25/23?? 25?? Alk Phos?? 12/02/23 18:34?? 73?? 11/25/23?? 70?? AST?? 12/02/23 18:34?? 26?? 11/25/23?? 17?? ALT?? 12/02/23 18:34?? 12?? 11/25/23?? 14?? BUN?? 12/02/23 18:34?? 40 ??High?? 11/25/23?? 38 ??High?? Glucose Level?? 12/02/23 18:34?? 143 ??High?? 11/25/23?? 136 ??High?? Creatinine Level?? 12/02/23 18:34?? 1.60 ??High?? 11/25/23?? 1.30 ??High?? BUN/Creat Ratio?? 12/02/23 18:34?? 25.0 ??High?? 11/25/23?? 29.2 ??High?? eGFR CKD-EPI?? 12/02/23 18:34?? 33 ??Low?? 11/25/23?? 42 ??Low?? Calcium Level?? 12/02/23 18:34?? 9.1?? 11/25/23?? 9.1?? Protein Total?? 12/02/23 18:34?? 7.1?? 11/25/23?? 6.7?? Albumin Level?? 12/02/23 18:34?? 3.6?? 11/25/23?? 3.3 ??Low?? Globulin?? 12/02/23 18:34?? 3.5?? 11/25/23?? 3.4?? A/G Ratio?? 12/02/23 18:34?? 1.0?? 11/25/23?? 1.0?? Bilirubin Total?? 12/02/23 18:34?? 0.7?? 11/25/23?? 0.5?? Anion Gap?? 12/02/23 18:34?? 9.0?? 11/25/23?? 9.0?? Osmolality?? 12/02/23 18:34?? 288?? 11/25/23?? 292? Infectious Disease?? LATEST RESULTS?? HISTORICAL RESULTS?? Adenovirus RespP-BFire?? 12/02/23 18:34?? Not Detected?? 11/11/23?? Not Detected?? Bordetella parapertussis RespP-BFire?? 12/02/23 18:34?? Not Detected?? 11/11/23?? Not Detected?? Bordetella pertussis RespP-BFire?? 12/02/23 18:34?? Not Detected?? 11/11/23?? Not Detected?? Chlamydophila pneumoniae RespP-BFire?? 12/02/23 18:34?? Not Detected?? 11/11/23?? Not Detected?? Coronavirus 229E (Not COVID-19) RP-BFire?? 12/02/23 18:34?? Not Detected?? 11/11/23?? Not Detected?? Coronavirus HKU1 (Not COVID-19) RP-BFire?? 12/02/23 18:34?? Not Detected?? 11/11/23?? Not Detected?? Coronavirus NL63 (Not COVID-19) RP-BFire?? 12/02/23 18:34?? Not Detected?? 11/11/23?? Not Detected?? Coronavirus OC43 (Not COVID-19) RP-BFire?? 12/02/23 18:34?? Not Detected?? 11/11/23?? Not Detected?? SARS-CoV-2 (COVID-19) RP-BFire?? 12/02/23 18:34?? Not Detected?? 11/11/23?? Not Detected?? Human Metapneumonovirus RespP-BFire?? 12/02/23 18:34?? Not Detected?? 11/11/23?? Not Detected?? Human Rhinovirus/Enterovirus RespP-BFir?? 12/02/23 18:34?? Not Detected?? 11/11/23?? Not Detected?? Influenza A H3 RespP-BFire?? 12/02/23 18:34?? Detected Abnormal? Influenza B RespP-BFire?? 12/02/23 18:34?? Not Detected?? 11/11/23?? Not Detected?? Mycomplasma pneumoniae RespP-BFire?? 12/02/23 18:34?? Not Detected?? 11/11/23?? Not Detected?? Parainfluenza Virus 1 RespP-BFire?? 12/02/23 18:34?? Not Detected?? 11/11/23?? Not Detected?? Parainfluenza Virus 2 RespP-BFire?? 12/02/23 18:34?? Not Detected?? 11/11/23?? Not Detected?? Parainfluenza Virus 3 RespP-BFire?? 12/02/23 18:34?? Not Detected?? 11/11/23?? Not Detected?? Parainfluenza Virus 4 RespP-BFire?? 12/02/23 18:34?? Not Detected?? 11/11/23?? Not Detected?? Respiratory Syncytial Virus RespP-BFire?? 12/02/23 18:34?? Not Detected?? 11/11/23?? Not Detected?? 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 12/02/23 18:34?? Unknown?? 11/11/22?? Unknown?? Symptomatic as defined by CDC??? 12/02/23 18:34?? Unknown?? 11/11/22?? Unknown?? Hospitalized due to COVID-19??? 12/02/23 18:34?? Unknown?? 11/11/22?? Unknown?? In ICU??? 12/02/23 18:34?? Unknown?? 11/11/22?? Unknown?? Group care resident??? 12/02/23 18:34?? Unknown?? 11/11/22?? Unknown?? status??? 12/02/23 18:34?? Unknown?? 11/11/22?? Unknown? Electronically Signed on 12/03/23 07:45 AM Kusum Aguilar MD Nutrition and dietetics Progress note * Kerry Joseph: PERFORM Event Display: Nutrition Note Authored Date: [id number] Assessment and Monitoring ?? Reason for Referral:??nutrition florencio score probable inadequate ? Nutrition Assessment: ?? 78 yo F admit dizziness, weakness, SOB. Dx: Flu. Chronic renal insufficiency, pulmonary embolism. PMH significant for CKD, T2DM, depression, HTN,??HLD, thrombocythemia. doesn't feel well, had emesis bag near by. On??o2, said hasn't felt well in awhile. ate ~50% of sandwich, drinking diet coke.??wastired, had brief interview.??Met with patient in the past as outpatient and during??previous admissions.Has some weight fluctuations,??but does look like lost ~5-6 kg in the past year, 6.6%, not clinically significant, however, noted. Over the??past??couple months, had a few different admissions with??SOB. Likely has some increased calorie needs d/t increased work it takes to breath and??having smaller??meals. BS <200mg/dL. Can offer protein shakes- didn't want??one this afternoon, was too heavy. Does have CKD 3, but likely not exceeding protein intake @ this time. Monitoring. ? Monitor/Evaluation:?? Nutrition Goals POs >50% of meals labs wnl No s/sx hyper,hypoglycemia skin w/o open areas Nutrition Interventions Continue current diet (could liberalize if po intakes poor, blood sugars low) protein shakes prn Enc good pos/fluids as accepts ?? Anthropometrics/Estimated Needs [id number] kg(Recorded: 12/02/2023 18:10 EST) [id number] cm(Recorded: 12/02/2023 18:10 EST) Body Mass Index33.43 kg/m2(Recorded: 12/02/2023 18:10 EST) Estimated Energy Needs: 1820-2275kcal (20-25kcal/kg actual BW) Estimated Fluid Needs: 1820-2275ml (1ml/kcal) Estimated Protein Needs: 55-73g (.6-.8g/kg actual BW) Reason for Visit lightheadness and dizziness, SOB Problem List/Past Medical History Ongoing Acquired hypothyroidism Altered bowel habits Amaurosis fugax Anemia of chronic disorder Anemia, hemolytic Aortic valve stenosis, mild Arthritis of right acromioclavicular joint Asthma Asthma Autoimmune hemolytic anemia, unspecified Cardiomyopathy, dilated Carotid artery aneurysm Cholecystitis, chronic Chronic renal insufficiency Colon arteriovenous malformation Coronary artery disease Cystocele, midline Depression with anxiety Diabetes mellitus Diabetes mellitus type 2 Diabetic polyneuropathy associated [...] Peripheral vascular disease, unspecified Pharyngoesophageal dysphagia Presbylarynges Pulmonary embolus Sleep apnea Thrombocytopenia Thrombocytopenic purpura Varicose veins [...] Mother and Father. Diet Orders Diet Order, 12/02/23 20:14:00 EST, Consistent Carbohydrates Allergies Flomax??(Dizziness) narcotic analgesics sulfa drugs??(Rash, Hallucinations) Nutrition Lab Results Test Name Test Result Date/Time WBC 3.6 K/mcL 12/04/2023 06:00 EST Hgb 8.9 g/dL 12/04/2023 06:00 EST Hct 27.5 % 12/04/2023 06:00 EST MCV 85.3 fL 12/04/2023 06:00 EST Platelets 32 K/mcL 12/04/2023 06:00 EST INR 1.3 12/02/2023 18:34 EST Sodium Level 141 mmol/L 12/04/2023 06:00 EST Potassium Level 4.6 mmol/L 12/04/2023 06:00 EST Chloride Level 109 mmol/L 12/04/2023 06:00 EST CO2 26 mmol/L 12/04/2023 06:00 EST Alk Phos 73 IntlUnit/L 12/02/2023 18:34 EST ALT 12 IntlUnit/L 12/02/2023 18:34 EST BUN 31 mg/dL 12/04/2023 06:00 EST Glucose Level 178 mg/dL 12/04/2023 06:00 EST Creatinine Level 1.10 mg/dL 12/04/2023 06:00 EST Albumin Level 3.6 g/dL 12/02/2023 18:34 EST Bilirubin Total 0.7 mg/dL 12/02/2023 18:34 EST Magnesium Level 2.1 mg/dL 12/03/2023 05:42 EST Medications Inpatient Ativan, 0.25 mg= 0.5 tab, Oral, Once atorvastatin, 10 mg= 1 tab, Oral, every evening calcium (as carbonate)-vitamin D 600 mg-400 intl units oral tablet, 1 tab, Oral, every morning cholecalciferol 1000 intl units oral tablet, 1000 units= 1 tab, Oral, every morning dexamethasone, 10 mg= 2.5 tab, Oral, QID Dextrose 50% injection, 25 g= 50 mL, IV Push, As Directed docusate, 100 mg= 1 cap, Oral, BID, PRN Eliquis, 5 mg= 1 tab, Oral, BID famotidine, 20 mg= 1 tab, Oral, BID folic acid, 1 mg= 1 tab, Oral, every morning glucagon, 1 mg= 1 EA, Subcutaneous, As Directed insulin aspart Sliding Scale - Low Dose, Insulin Aspart Sliding Scale See Comments, Subcutaneous, AC & bedtime ipratropium-albuterol 0.5 mg-2.5 mg/3 mL inhalation solution, 3 mL, Nebulized Inhalation, every 4 hr, PRN letrozole, 2.5 mg= 1 tab, Oral, every morning levothyroxine, 137 mcg, Oral, every morning Metoprolol Tartrate, 25 mg= 1 tab, Oral, BID Mucinex, 600 mg= 1 tab, Oral, BID ondansetron, 4 mg= 2 mL, IV Push, every 6 hr, PRN Tamiflu, 30 mg= 1 cap, Oral, BID Tessalon Perles, 100 mg= 1 cap, Oral, TID Tylenol, 650 mg= 2 tab, Oral, every 6 hr, PRN Vitamin C, 500 mg= 1 tab, Oral, Daily, PRN Home Acidophilus, 1 tab, Oral, every morning [...] 100 mg= 1 tab, Oral, BID, PRN Eliquis 5 mg oral tablet, 5 mg= 1 tab, Oral, BID famotidine 20 mg oral tablet, 20 mg= [...] tab, Oral, every morning Electronically Signed on 12/04/23 02:41 PM Kerry Joseph Progress note * David Flores MD: PERFORM Event Display: Progress Note - Physician Authored Date: [id number] YVETTE DRAPER:1945 Age:78 years Sex:Female Visit Date:12/02/2023 Primary Care Physician: Mally Vazquez APRN Subjective Patient with no respiratory complaints Review of Systems Constitutional:??No fevers overnight Respiratory:??No shortness of breath Cardiovascular:??No Chest pain Gastrointestinal:??No nausea, vomiting, diarrhea Musculoskeletal:??No new joint pain Objective Vitals & Measurements T:??36.6?C ??(Temporal Artery)?? TMIN:??36.2?C ??(Temporal Artery)?? TMAX:??36.6?C ??(Temporal Artery)?? HR:??73??(Peripheral)?? RR:??20?? BP:??142/70?? SpO2:??99%?? Pain Score:??0?? O2 Flow Rate:??2?? O2 Therapy:??Nasal cannula?? Physical Exam General:??Alert and oriented, No acute distress Eye:??PERRL, EOMI, normal conjunctiva Lungs:??Clear to auscultation and percussion, Non-labored respiration Heart:??Normal rate, Normal rhythm, No murmur, No gallop Abdomen:??Soft, non-tender, non-distended, normal bowel sounds, no masses Lab Results Labs??(Last four charted values) WBC ?8.3?(DEC 06)?7.2?(DEC 05)?L??3.6?(DEC 04)?L??4.3?(DEC 03) Hgb ?L??8.4?(DEC 06)?L??8.4?(DEC 05)?L??8.9?(DEC 04)?L??8.4?(DEC 03) Hct ?L??26.1?(DEC 06)?L??25.5?(DEC 05)?L??27.5?(DEC 04)?L??26.3?(DEC 03) Plt ?L??58?(DEC 06)?C??41?(DEC 05)?C??32?(DEC 04)?L??60?(DEC 03) Na ?139?(DEC 05)?141?(DEC 04)?141?(DEC 03)?138?(DEC 02) K ?4.5?(DEC 05)?4.6?(DEC 04)?3.7?(DEC 03)?4.2?(DEC 02) CO2 ?24?(DEC 05)?26?(DEC 04)?27?(DEC 03)?26?(DEC 02) Cr ?1.20?(DEC 05)?1.10?(DEC 04)?H??1.40?(DEC 03)?H??1.60?(DEC 02) BUN ?H??41?(DEC 05)?H??31?(DEC 04)?H??38?(DEC 03)?H??40?(DEC 02) Glucose Random ?H??194?(DEC 05)?H??178?(DEC 04)?H??111?(DEC 03)?H??143?(DEC 02) PT ?H??12.7?(DEC 02) INR ?H??1.3?(DEC 02) ?? Assessment/Plan 1.??Influenza A??J10.1 Last day of Tamiflu, doing very well 2.??Generalized weakness??R53.1 Continuing to need rehab and physical therapy 3.??Chronic renal insufficiency??N18.9 Resolved [facility] no longer checking 4.??Pulmonary embolus??I26.99 On Eliquis 5.??Idiopathic thrombocythemia??D47.3 Last day of steroids platelets have rebounded nicely Electronically Signed on 12/06/23 11:30 AM David Flores MD * David Flores MD: PERFORM Event Display: Progress Note - Physician Authored Date: [id number] YVETTE DRAPER :1945 Age:78 years Sex:Female Visit Date:12/02/2023 Primary Care Physician: Mally Vazquez APRN Subjective pt feeling well today Review of Systems Constitutional:??No fevers overnight Respiratory:??No shortness of breath at rest Cardiovascular:??No Chest pain Gastrointestinal:??No nausea, vomiting, diarrhea Musculoskeletal:??No new joint pain Objective Vitals & Measurements T:??36.4?C ??(Temporal Artery)?? TMIN:??36.0?C ??(Axillary)?? TMAX:??36.4?C ??(Axillary)?? HR:??73??(Peripheral)?? RR:??18?? BP:??131/62?? SpO2:??100%?? Pain Score:??0?? O2 Flow Rate:??2?? O2 Therapy:??Humidification, Nasal cannula?? Physical Exam General:??Alert and oriented, No acute distress Eye:??PERRL, EOMI, normal conjunctiva Lungs:??Still some rhonchorous sound and wheezing but better than yesterday Heart:??Normal rate, Normal rhythm, No murmur, No gallop Abdomen:??Soft, non-tender, non-distended, normal bowel sounds, no masses Lab Results Labs??(Last four charted values) WBC ?7.2?(DEC 05)?L??3.6?(DEC 04)?L??4.3?(DEC 03)?6.4?(DEC 02) Hgb ?L??8.4?(DEC 05)?L??8.9?(DEC 04)?L??8.4?(DEC 03)?L??9.8?(DEC 02) Hct ?L??25.5?(DEC 05)?L??27.5?(DEC 04)?L??26.3?(DEC 03)?L??31.6?(DEC 02) Plt ?C??41?(DEC 05)?C??32?(DEC 04)?L??60?(DEC 03)?L??113?(DEC 02) Na ?139?(DEC 05)?141?(DEC 04)?141?(DEC 03)?138?(DEC 02) K ?4.5?(DEC 05)?4.6?(DEC 04)?3.7?(DEC 03)?4.2?(DEC 02) CO2 ?24?(DEC 05)?26?(DEC 04)?27?(DEC 03)?26?(DEC 02) Cr ?1.20?(DEC 05)?1.10?(DEC 04)?H??1.40?(DEC 03)?H??1.60?(DEC 02) BUN ?H??41?(DEC 05)?H??31?(DEC 04)?H??38?(DEC 03)?H??40?(DEC 02) Glucose Random ?H??194?(DEC 05)?H??178?(DEC 04)?H??111?(DEC 03)?H??143?(DEC 02) PT ?H??12.7?(DEC 02) INR ?H??1.3?(DEC 02) Assessment/Plan 1.??Influenza A??J10.1 5 days of Tamiflu 2.??Generalized weakness??R53.1 Multifactorial including multiple hospitalizations working well with physical therapy.?? She does have some delirium this hospitalization likely from steroids we did a CT of her head yesterday which was negative??reassuringly she is a bit better today less altered 3.??Chronic renal insufficiency??N18.9 Acute on chronic renal failure resolved 4.??Pulmonary embolus??I26.99 Continue Eliquis??despite low platelets??she has no bleeding. 5.??Idiopathic thrombocythemia??D47.3 Flareup secondary to??influenza??today is day 3??of 4??for Decadron with??platelets starting to go up. 6.??Diabetes mellitus??E11.9 Surprisingly??blood sugars decent??with the steroids Electronically Signed on 12/05/23 02:15 PM David Flores MD * David Flores MD: PERFORM Event Display: Progress Note - Physician Authored Date: [id number] YVETTE DRAPER :1945 Age:78 years Sex:Female Visit Date:12/02/2023 Primary Care Physician: Mally Vazquez APRN Subjective Patient feeling a little anxious today Review of Systems Constitutional:??No fevers overnight Respiratory: Does report some shortness of breath Cardiovascular:??No Chest pain Gastrointestinal:??No nausea, vomiting, diarrhea Musculoskeletal:??No new joint pain Objective Vitals & Measurements T:??36.4?C ??(Axillary)?? TMIN:??35.8?C ??(Temporal Artery)?? TMAX:??36.8?C ??(TemporalArtery)?? HR:??97??(Peripheral)?? RR:??24?? BP:??118/55?? SpO2:??95%?? Pain Score:??0?? O2 Flow Rate:??2?? O2 Therapy:??Nasal cannula?? Physical Exam General:??Awake alert appears anxious tachypneic??but not in distress??no accessory muscle use Eye:??PERRL, EOMI, normal conjunctiva Lungs:??She does themore wheezing than yesterday. Heart:??Normal rate, Normal rhythm, No murmur, No gallop Abdomen:??Soft, non-tender, non-distended, normal bowel sounds, no masses Lab Results Labs??(Last four charted values) WBC ?L??3.6?(DEC 04)?L??4.3?(DEC 03)?6.4?(DEC 02) Hgb ?L??8.9?(DEC 04)?L??8.4?(DEC 03)?L??9.8?(DEC 02) Hct ?L??27.5?(DEC 04)?L??26.3?(DEC 03)?L??31.6?(DEC 02) Plt ?C??32?(DEC 04)?L??60?(DEC 03)?L??113?(DEC 02) Na ?141?(DEC 04)?141?(DEC 03)?138?(DEC 02) K ?4.6?(DEC 04)?3.7?(DEC 03)?4.2?(DEC 02) CO2 ?26?(DEC 04)?27?(DEC 03)?26?(DEC 02) Cr ?1.10?(DEC 04)?H??1.40?(DEC 03)?H??1.60?(DEC 02) BUN ?H??31?(DEC 04)?H??38?(DEC 03)?H??40?(DEC 02) Glucose Random ?H??178?(DEC 04)?H??111?(DEC 03)?H??143?(DEC 02) PT ?H??12.7?(DEC 02) INR ?H??1.3?(DEC 02) Diagnostic Results Medications (22) Active Scheduled: (17) Apixaban 5 mg Tab [LTTL] ??5 mg 1 tab, Oral, BID Atorvastatin 10 mg Tab [LTTL] ??10 mg 1 tab, Oral, every evening Benzonatate 100 mg Cap [LTTL] ??100 mg 1 cap, Oral, TID Calcium-Vitamin D 600 mg-400 units Tab [LTTL] ??1 tab, Oral, every morning Cholecalciferol 25 mcg (1,000 units) Tab [LTTL] ??1,000 units 1 tab, Oral, every morning Dexamethasone 4 mg Tab [LTTL] ??10 mg 2.5 tab, Oral, QID Dextrose 50% Inj 50 mL Syringe [LTTL] ??25 g 50 mL, IV Push, As Directed Famotidine 20 mg Tab [LTTL] ??20 mg 1 tab, Oral, BID Folic Acid 1 mg Tab [LTTL] ??1 mg 1 tab, Oral, every morning Glucagon 1 mg Inj ??[LTTL] ??1 mg 1 EA, Subcutaneous, As Directed Guaifenesin 600 mg ER Tab [LTTL] ??600 mg 1 tab, Oral, BID Insulin aspart 100 units/mL Inj 3 ml Pen [LTTL] ??Insulin Aspart Sliding Scale See Comments, Subcutaneous, AC & bedtime Letrozole 2.5 mg Tab [LTTL] ??2.5 mg 1 tab, Oral, every morning Levothyroxine 112 mcg Tab [LTTL] + Levothyroxine 25 mcg Tab [LTTL] ??137 mcg, Oral, every morning LORazepam 0.5 mg Tab [LTTL] ??0.25 mg 0.5 tab, Oral, Once Metoprolol Tartrate 25 mg Tab [LTTL] ??25 mg 1 tab, Oral, BID Oseltamivir 30 mg Cap [LTTL] ??30 mg 1 cap, Oral, BID Continuous: (0) PRN: (5) Acetaminophen 325 mg Tab [LTTL] ??650 mg 2 tab, Oral, every 6 hr Albuterol-ipratropium Neb Dot 3 mL [LTTL] ??3 mL, Nebulized Inhalation, every 4 hr Ascorbic acid 500 mg Tab [LTTL] ??500 mg 1 tab, Oral, Daily Docusate sodium 100 mg Cap [LTTL] ??100 mg 1 cap, Oral, BID Ondansetron 2 mg/mL Inj 2 ml Vial [LTTL] ??4 mg 2 mL, IV Push, every 6 hr Assessment/Plan 1.??Influenza A??J10.1 Continue Tamiflu Ordered: dexamethasone, 10 mg = 2.5 tab, Oral, Tab, QID for 4 days, First Dose: 12/03/23 17:00:00 EST, Stop Date: 12/07/23 16:59:00 EST, Physician Stop, Routine Ativan, 0.25 mg = 0.5 tab, Oral, Tab, Once, First Dose: 12/04/23 14:07:00 EST, Stop Date: 12/04/23 14:07:00 EST, Physician Stop, NOW ?? 2.??Generalized weakness??R53.1 Continue working??with physical therapy Ordered: dexamethasone, 10 mg = 2.5 tab, Oral, Tab, QID for 4 days, First Dose: 12/03/23 17:00:00 EST, Stop Date: 12/07/23 16:59:00 EST, Physician Stop, Routine Ativan, 0.25 mg = 0.5 tab, Oral, Tab, Once, First Dose: 12/04/23 14:07:00 EST, Stop Date: 12/04/23 14:07:00 EST, Physician Stop, NOW ?? 3.??Chronic renal insufficiency??N18.9 Acute kidney injury component resolved Ordered: dexamethasone, 10 mg = 2.5 tab, Oral, Tab, QID for 4 days, First Dose: 12/03/23 17:00:00 EST, Stop Date: 12/07/23 16:59:00 EST, Physician Stop, Routine Ativan, 0.25 mg = 0.5 tab, Oral, Tab, Once, First Dose: 12/04/23 14:07:00 EST, Stop Date: 12/04/23 14:07:00 EST, Physician Stop, NOW ?? 4.??Pulmonary embolus??I26.99 On Eliquis, platelets are only 30 but will continue Eliquis for now no evidence of bleeding Ordered: dexamethasone, 10 mg = 2.5 tab, Oral, Tab, QID for 4 days, First Dose: 12/03/23 17:00:00 EST, Stop Date: 12/07/23 16:59:00 EST, Physician Stop, Routine Ativan, 0.25 mg = 0.5 tab, Oral, Tab, Once, First Dose: 12/04/23 14:07:00 EST, Stop Date: 12/04/23 14:07:00 EST, Physician Stop, NOW ?? 5.??Idiopathic thrombocythemia??D47.3 Day 2 of 4 for her Decadron Ordered: dexamethasone, 10 mg = 2.5 tab, Oral, Tab, QID for 4 days, First Dose: 12/03/23 17:00:00 EST, Stop Date: 12/07/23 16:59:00 EST, Physician Stop, Routine Ativan, 0.25 mg = 0.5 tab, Oral, Tab, Once, First Dose: 12/04/23 14:07:00 EST, Stop Date: 12/04/23 14:07:00 EST, Physician Stop, NOW ?? 6.??Diabetes mellitus??E11.9 Blood sugar higher this morning anticipate this may start to rise lets keep an eye on Ordered: dexamethasone, 10 mg = 2.5 tab, Oral, Tab, QID for 4 days, First Dose: 12/03/23 17:00:00 EST, Stop Date: 12/07/23 16:59:00 EST, Physician Stop, Routine Ativan, 0.25 mg = 0.5 tab, Oral, Tab, Once, First Dose: 12/04/23 14:07:00 EST, Stop Date: 12/04/23 14:07:00 EST, Physician Stop, NOW ?? Electronically Signed on 12/04/23 02:34 PM David Flores MD History and physical note * Jonathon Cox APRN: PERFORM, MODIFY, MODIFY, MODIFY, MODIFY, MODIFY, MODIFY, MODIFY, MODIFY Event Display: History and Physical Authored Date: [id number] YVETTE DRAPER :1945 Age:78 years Sex:Female Visit Date:12/02/2023 Primary Care Physician: Mally Vazquez APRN Chief Complaint Admitted November 24- for CHF, pneumonia and bilateral lung clots for which she has been on doxycycline and eliquis. Pt states still coughing, still tired, family feels she's no better. History of Present Illness 78 yr old female recently discharged 11/25/23 for PE brought in by family for continuing to feel unwell. Per daughter pt has no appetite still feeling very weak. She denies fever chills has some wheezing per ED resolved with duonebs, albuterol. She was initially hypoxic at 87% with sats?? improved to 93% and was on RA when I did the evaluation. Chest xray done shows: FINDINGS:?? Lungs: Hyperexpansion suggests COPD or emphysema. Vague opacity at the lingular?? segment and left lower lobe could represent subsegmental atelectasis. Pleural spaces: Unremarkable. No pleural effusion. No pneumothorax.?? Heart/Mediastinum: Status post sternotomy and cardiac valve replacement?? Bones/joints: See Heart/Mediastinum finding.? IMPRESSION:?? Postoperative changes.?? Lingular segment atelectasis suspected ?? Respiratory panel positive for influenza A.?? She will be started on tamiflu Other labs : wbc 6 Hgb 9, Hct 31, plt 113, INR 1.3, BUN 40, crea, 1.6, glucose 143, bnp 75, procalcitonin <0.05 Pt had one episode of vomiting, but per daughter it was her phlegm. Pt denies chest pain, lightheadedness, abd pain, dysuria, nausea. She claims to have generalized weakness. ?? 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 She was recently discharged from [facility] 10/18 for ITP flare and melena, had platelet transfusions x3 . Review of Systems Constitutional: No fevers, chills, sweats Eye: No recent visual problems ENT: No ear pain, nasal congestion, sore throat Respiratory:??mild ??shortness of breath, + cough Cardiovascular: No Chest pain, palpitations, syncope Gastrointestinal: No nausea, +??vomiting,?? no diarrhea Genitourinary: No hematuria Gonzalo/Lymph: Negative for bruising tendency, swollen lymph glands Endocrine: Negative for excessive thirst, excessive hunger Musculoskeletal: No back pain, neck pain, joint pain, muscle pain, decreased range of motion Integumentary: No rash, pruritus, abrasions Neurologic: Alert & oriented X 4 ?? Physical Exam Vitals & Measurements T:??36.2?C ??(Temporal Artery)?? TMIN:??36.2?C ??(Temporal Artery)?? TMAX:??36.3?C ??(Temporal Artery)?? HR:??88??(Peripheral)?? RR:??24?? BP:??91/49?? SpO2:??92%?? HT:??165??cm?? WT:??91??kg?? BMI:??33.43?? O2 Flow Rate:??2?? O2 Therapy:??Nasal cannula?? General: Alert and oriented, well nourished,?No??acute distress Eye: PERRL, EOMI,?Normal??conjunctiva HENT: Normocephalic, atraumatic Neck:?No??lymphadenopathy Lungs:??Clear??to auscultation ,?Non-labored?? respiration Heart:?Normal?? rate,?Regular??rhythm Abdomen: Soft, non-tender, non-distended,?Normal?? bowel sounds,?? Musculoskeletal:?Normal?? range of motion and strength,?No??tenderness,?No??swelling Skin: Skin is warm, dry and pink,?No??rashes,?No??lesions Neurologic: Awake, alert and oriented X4, CN II-XII intact Psychiatric: Cooperative, appropriate mood and affect Assessment/Plan 1.??Influenza A??J10.1 tamiflu 75mg x1 then 30mg po bid x 5 days 2.??Generalized weakness??R53.1 she had always had this complaint even in previous admissions. daughter claims there has been no change , no improvement pt with ongoing flu infection will likely have generalized weakness, had pna / was also with gen weakness. last admit was for PE, had dyspnea of exertion but was said improved per dc summary checking UA, TSH may need PT/OT eval ?? 3.??Chronic renal insufficiency??N18.[address] with crea 1.4 at baseline. now at 1.6 likely from dehydration from poor po intake pt also on lasix and losartan which will be held for now fluids?? NS at 100 cc/hr-- pt was mentioned with CHF in previous admit, but BNP today at 75, with soft BP reassess in am if pt needs?? lasix restarted at lower dose ?? 4.??Pulmonary embolus??I26.99 apixaban 5mg po bid ?? 5.??Diabetes mellitus??E11.9 ISS aspart achs consistent carbohydrates ?? 6.??Idiopathic thrombocythemia??D47.3 plt 113, no signs of bleeding monitor cbc 7.??Hypothyroidism??E03.9 levothyroxine 137mcg po daily will check TSH ?? 8.??HTN (hypertension)??I10 pt on metoprolol 25mg po bid, hold for sbp less than 100mm Hg losartan, lasix on hold for now for nova BP a little soft at 91/49. on IV fluids ?? DVT prophylaxis: apixaban ?? Code status: full code ? Orders: Tylenol, 650 mg = 2 tab, Oral, Tab, every 6 hr for 30 days, PRN pain, First Dose: 12/02/23 20:35:00EST, Stop Date: 01/01/24 20:34:00 EST, Physician Stop, Routine Eliquis, 5 mg = 1 tab, Oral, Tab, BID, First Dose: 12/02/23 21:00:00 EST, Routine Vitamin C, 500 mg = 1 tab, Oral, Tab, Daily, PRN other (see comment), First Dose: 12/02/23 20:59:00EST, Routine atorvastatin, 10 mg = 1 tab, Oral, Tab, every evening, First Dose: 12/02/23 21:00:00 EST, Routine calcium (as carbonate)-vitamin D 600 mg-400 intl units oral tablet, 1 tab, Oral, Tab, every morning, First Dose: 12/03/23 9:00:00 EST, Routine cholecalciferol 1000 intl units oral tablet, 1,000 units = 1 tab, Oral, Tab, every morning, First Dose: 12/03/23 9:00:00 EST, Routine docusate, 100 mg = 1 cap, Oral, Cap, BID, PRN constipation, First Dose: 12/02/23 21:01:00 EST, Routine famotidine, 20 mg = 1 tab, Oral, Tab, BID, First Dose: 12/03/23 9:00:00 EST, Routine folic acid, 1 mg = 1 tab, Oral, Tab, every morning, First Dose: 12/03/23 9:00:00 EST, Routine furosemide, 40 mg = 1 tab, Oral, Tab, every morning, First Dose: 12/03/23 9:00:00 EST, Routine glucagon, 1 mg = 1 EA, Subcutaneous, Injection, As Directed, First Dose: 12/02/23 20:19:00 EST, Physician Stop, Routine Dextrose 50% injection, 25 g = 50 mL, IV Push, Injection, As Directed, First Dose: 12/02/23 20:19:00 EST, Physician Stop, Routine Mucinex, 600 mg = 1 tab, Oral, Tab-ER, BID for 30 days, First Dose: 12/02/23 21:00:00 EST, Stop Date: 01/01/24 20:59:00 EST, Physician Stop, Routine insulin aspart Sliding Scale - Low Dose, Insulin Aspart Sliding Scale See Comments, Subcutaneous, Injection, AC & bedtime, First Dose: 12/02/23 21:00:00 EST, Routine ipratropium-albuterol 0.5 mg-2.5 mg/3 mL inhalation solution, 3 mL, Nebulized Inhalation, Soln, every 4 hr for 2 days, PRN wheezing, First Dose: 12/02/23 20:15:00 EST, Stop Date: 12/04/23 20:14:00 EST, Physician Stop, Routine letrozole, 2.5 mg = 1 tab, Oral, Tab, every morning, First Dose: 12/03/23 9:00:00 EST, Routine levothyroxine, 137 mcg, Oral, Tab, every morning, First Dose: 12/03/23 6:00:00 EST, Routine Metoprolol Tartrate, 25 mg = 1 tab, Oral, Tab, BID, First Dose: 12/03/23 9:00:00 EST, Routine ondansetron, 4 mg = 2 mL, IV Push, Vial, every 6 hr, PRN nausea/vomiting, First Dose: 12/02/23 20:24:00 EST, Routine, zofran Tamiflu, 30 mg = 5 mL, Oral, Susp, BID for 5 days, Antibiotic Indication Influenza, First Dose: 12/03/23 9:00:00 EST, Stop Date: 12/08/23 8:59:00 EST, Physician Stop, Routine NS drip 1,000 mL, Total Volume (mL): 1,000, 1,000 mL, Soln-IV, IV, 100 mL/hr, Order Duration: 30 days, Start Date: 12/02/23 20:19:00 EST, Stop Date: 01/01/24 20:18:00 EST, 91 kg, Populate Charting Weight From Order, 2.04, m2 Basic Metabolic Panel, Blood, Routine, 12/02/23 20:15:00 EST, Daily, for 3 days, Lab Collect CBC w/ Diff, Blood, Routine, 12/02/23 20:15:00 EST, Daily, for 3 days, Lab Collect CT Chest w/o Contrast, 12/02/23 20:41:00 EST, Stat, Reason: dyspnea, Transport Mode: Wheelchair Diet Order, 12/02/23 20:14:00 EST, Consistent Carbohydrates Incentive Spirometry Nursing, 12/02/23 20:31:00 EST Legionella Antigen Urine, Urine, Stat Collect, 12/02/23 20:32:00 EST, Once, Nurse collect, Print Label Low risk VTE, 12/02/23 20:14:00 EST, Low risk, no mechanical VTE prophylaxis required Magnesium Level, Blood, Routine, 12/02/23 20:15:00 EST, Daily, for 3 days, Lab Collect Oxygen Therapy, SpO2 goal 92% or greater, Stop date 12/02/23 20:30:00 EST, Jonathon Colon, 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, Inpatient, 12/02/23 20:12:00 EST, 12/02/23 20:12:00 EST, 12/02/23 20:12:00 EST, 1 midnight or less Resuscitation Status, 12/02/23 20:14:00 EST, Full Code Streptococcus Pneumoniae Antigen Urine, Urine, Routine Collect, 12/02/23 20:33:00 EST, Once, Nurse collect, Print Label Up ad Milly, 12/02/23 20:14:00 EST, Constant Order, at nurse's discretion, 12/02/23 20:14:00 EST Urinalysis with Micro if Indicated and Culture if Indicated, Urine, Routine Collect, 12/02/23 20:32:00 EST, Once, Nurse collect, Print Label Vital Signs, 12/02/23 20:14:00 EST, every 4 hr (hui) Problem List/Past [...] abdominal hysterectomy and bilateral salpingo-oophorectomy Medications Inpatient atorvastatin, 10 mg= 1 tab, Oral, every evening calcium (as carbonate)-vitamin D 600 mg-400 intl units oral tablet, 1 tab, Oral, every morning cholecalciferol 1000 intl units oral tablet, 25 mcg, Oral, every morning Dextrose 50% injection, 25 g= 50 mL, IV Push, As Directed docusate, 100 mg= 1 tab, Oral, BID, PRN Eliquis, 5 mg= 1 tab, Oral, BID famotidine, 20 mg= 1 tab, Oral, BID folic acid, 1 mg= 1 tab, Oral, every morning furosemide, 40 mg= 1 tab, Oral, every morning glucagon, 1 mg= 1 EA, Subcutaneous, As Directed insulin aspart Sliding Scale - Low Dose, Insulin Aspart Sliding Scale See Comments, Subcutaneous, AC & bedtime ipratropium-albuterol 0.5 mg-2.5 mg/3 mL inhalation solution, 3 mL, Nebulized Inhalation, every 4 hr, PRN letrozole, 2.5 mg= 1 tab, Oral, every morning levothyroxine, 137 mcg= 1 tab, Oral, every morning Metoprolol Tartrate, 25 mg= 1 tab, Oral, BID Mucinex, 600 mg= 1 tab, Oral, BID NS drip 1,000 mL, 1000 mL, IV ondansetron, 4 mg= 2 mL, IV Push, every 6 hr, PRN Tamiflu, 30 mg= 5 mL, Oral, BID Tylenol, 650 mg= 2 tab, Oral, every 6 hr, PRN Vitamin C, 500 mg= 1 tab, Oral, Daily, PRN Home Acidophilus, 1 tab, Oral, every morning [...] 100 mg= 1 tab, Oral, BID, PRN Eliquis 5 mg oral tablet, 10 mg= 2 tab, Oral, BID Eliquis 5 mg oral tablet, 5 mg= 1 tab, Oral, BID famotidine 20 mg oral tablet, 20 mg= [...] 08/02/2022 Recorded Comments : RD done at [place] Lot: [id number] exp: 05/08/2023 Sanofi SARS-CoV-2 mRNA (toshainanameran 12y+) bival 08/02/2022 Recorded Comments : Lot: [id number] Exp: 06/08/23 LD done at [place] Lab Results Test Name Test Result Date/Time pH Addison 7.38 pH unit(s) 12/02/2023 18:34 EST pCO2 Addison 46.0 mmHg 12/02/2023 18:34 EST HCO3 Venous 27.2 mmol/L 12/02/2023 18:34 EST CO2 Total Venous 28.6 mmol/L 12/02/2023 18:34 EST WBC 6.4 K/mcL 12/02/2023 18:34 EST RBC 3.65 Million/mcL 12/02/2023 18:34 EST Hgb 9.8 g/dL 12/02/2023 18:34 EST Hct 31.6 % 12/02/2023 18:34 EST MCV 86.6 fL 12/02/2023 18:34 EST MCH 27.0 pg 12/02/2023 18:34 EST MCHC 31.1 g/dL 12/02/2023 18:34 EST RDW-CV 17.0 % 12/02/2023 18:34 EST Platelets 113 K/mcL 12/02/2023 18:34 EST MPV 9.3 fL 12/02/2023 18:34 EST Neutro Auto 78.2 % 12/02/2023 18:34 EST Lymph Auto 11.6 % 12/02/2023 18:34 EST [place] Auto 8.7 % 12/02/2023 18:34 EST Eos, Auto 0.80 % 12/02/2023 18:34 EST Basophil Auto 0.7 % 12/02/2023 18:34 EST Neutro Absolute 5.0 K/mcL 12/02/2023 18:34 EST Lymph Absolute 0.7 K/mcL 12/02/2023 18:34 EST [place] Absolute 0.6 K/mcL 12/02/2023 18:34 EST Eos Absolute 0.1 K/mcL 12/02/2023 18:34 EST Baso Absolute 0.00 K/mcL 12/02/2023 18:34 EST RBC Morph Abnormal 12/02/2023 18:34 EST Anisocyte 1+ 12/02/2023 18:34 EST Elliptocyte 1+ 12/02/2023 18:34 EST Plt Estimation Decreased 12/02/2023 18:34 EST Plt Large Few 12/02/2023 18:34 EST Slide Review Morph Only 12/02/2023 18:34 EST Prothrombin Time 12.7 seconds 12/02/2023 18:34 EST INR 1.3 12/02/2023 18:34 EST Sodium Level 138 mmol/L 12/02/2023 18:34 EST Potassium Level 4.2 mmol/L 12/02/2023 18:34 EST Chloride Level 103 mmol/L 12/02/2023 18:34 EST CO2 26 mmol/L 12/02/2023 18:34 EST Alk Phos 73 IntlUnit/L 12/02/2023 18:34 EST AST 26 IntlUnit/L 12/02/2023 18:34 EST ALT 12 IntlUnit/L 12/02/2023 18:34 EST BUN 40 mg/dL 12/02/2023 18:34 EST Glucose Level 143 mg/dL 12/02/2023 18:34 EST Creatinine Level 1.60 mg/dL 12/02/2023 18:34 EST BUN/Creat Ratio 25.0 12/02/2023 18:34 EST eGFR CKD-EPI 33 mL/min/1.73 m2 12/02/2023 18:34 EST Calcium Level 9.1 mg/dL 12/02/2023 18:34 EST Protein Total 7.1 g/dL 12/02/2023 18:34 EST Albumin Level 3.6 g/dL 12/02/2023 18:34 EST Globulin 3.5 g/dL 12/02/2023 18:34 EST A/G Ratio 1.0 g/dL 12/02/2023 18:34 EST Bilirubin Total 0.7 mg/dL 12/02/2023 18:34 EST Anion Gap 9.0 12/02/2023 18:34 EST Osmolality 288 mOsm/kg 12/02/2023 18:34 EST Glucose POC 160 12/02/2023 21:05 EST BNP 75 pg/mL 12/02/2023 18:34 EST Adenovirus RespP-BFire Not Detected BF 12/02/2023 18:34 EST Bordetella parapertussis RespP-BFire Not Detect-BioFire 12/02/2023 18:34 EST Bordetella pertussis RespP-BFire Not Detect-BioFire 12/02/2023 18:34 EST Chlamydophila pneumoniae RespP-BFire Not Detect-BioFire 12/02/2023 18:34 EST Coronavirus 229E (Not COVID-19) RP-BFire Not Detect-BioFire 12/02/2023 18:34 EST Coronavirus HKU1 (Not COVID-19) RP-BFire Not Detect-BioFire 12/02/2023 18:34 EST Coronavirus NL63 (Not COVID-19) RP-BFire Not Detect-BioFire 12/02/2023 18:34 EST Coronavirus OC43 (Not COVID-19) RP-BFire Not Detect-BioFire 12/02/2023 18:34 EST SARS-CoV-2 (COVID-19) RP-BFire Not Detect-BioFire 12/02/2023 18:34 EST Human Metapneumonovirus RespP-BFire Not Detect-BioFire 12/02/2023 18:34 EST Human Rhinovirus/Enterovirus RespP-BFir Not Detect-BioFire 12/02/2023 18:34 EST Influenza A H3 RespP-BFire Detect-BioFire 12/02/2023 18:34 EST Influenza B RespP-BFire Not Detect-BioFire 12/02/2023 18:34 EST Mycomplasma pneumoniae RespP-BFire Not Detect-BioFire 12/02/2023 18:34 EST Parainfluenza Virus 1 RespP-BFire Not Detect-BioFire 12/02/2023 18:34 EST Parainfluenza Virus 2 RespP-BFire Not Detect-BioFire 12/02/2023 18:34 EST Parainfluenza Virus 3 RespP-BFire Not Detect-BioFire 12/02/2023 18:34 EST Parainfluenza Virus 4 RespP-BFire Not Detect-BioFire 12/02/2023 18:34 EST Respiratory Syncytial Virus RespP-BFire Not Detect-BioFire 12/02/2023 18:34 EST 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 Unknown 12/02/2023 18:34 EST Hospitalized due to COVID-19? Unknown 12/02/2023 18:34 EST In ICU? Unknown 12/02/2023 18:34 EST Group care resident? Unknown 12/02/2023 18:34 EST status? Unknown 12/02/2023 18:34 EST Electronically Signed on 12/03/23 06:42 AM Jonathon Cox APRN Discharge summary * David Flores MD: PERFORM Event Display: Discharge Summary Authored Date: [id number] YVETTE DRAPER :1945 Age:78 years Sex:Female Visit Date:12/02/2023 Primary Care Physician: Mally Vazquez APRN Hospital Course Note this discharge from inpatient stay??will be a discharge summary??as well as a history and physical admission for SNF status ?? Female with a multitude of medical problems as well as a multitude of hospital admissions??over thepast months to year presented to hospital with??influenza and weakness??complicated by ITP flare.??She was on Tamiflu for 5 days??had no other complications of influenza remains on anywhere from 0 to 2 L of oxygen which is her baseline??has not had fevers in days.?? She has profound weakness but again she is??not much worse than her baseline. ??Her ITP responded great to??4 days of 40 mg of Decadron as recommended by hematology.?? She had some delirium??in this hospitalization??likely from hermultiple illness ease in the setting of hospitalization illness and??extremely high-dose of steroids.?? She had a normal CT head. ??She has been switched to long-term status in our hospital awaiting??rehab placement once her influenza contact precautions are removed. ?We are setting up palliative care referral??given that I anticipate it is extremely likely for her to continue with recurrent hospitalizations??in the near medium and long-term. Physical Exam Vitals & Measurements T:??35.7?C ??(Axillary)?? TMIN:??35.7?C ??(Axillary)?? TMAX:??36.6?C ??(Temporal Artery)?? HR:??76??(Peripheral)?? RR:??22?? BP:??155/57?? SpO2:??96%?? Pain Score:??0?? O2 Flow Rate:??2??O2 Therapy:??Room air?? General:??Alert and oriented, No acute distress??does remember exactly why she came in the hospitalfor this admission Eye:??PERRL, EOMI, normal conjunctiva Lungs:??Clear to auscultation except mild wheezing, Non-labored respiration Heart:??Normal rate, Normal rhythm, No murmur, No gallop Abdomen:??Soft, non-tender, non-distended, normal bowel sounds, no masses All extremities quite weak does have trouble lifting both legs off the bed??sensation. Procedure/Surgical History ???Arthroplasty Knee (Left) (08/12/2022)???Aortic valve [...] Lab Results Labs??(Last four charted values) WBC ?6.6?(DEC 07)?8.3?(DEC 06)?7.2?(DEC 05)?L??3.6?(DEC 04) Hgb ?L??8.7?(DEC 07)?L??8.4?(DEC 06)?L??8.4?(DEC 05)?L??8.9?(DEC 04) Hct ?L??26.7?(DEC 07)?L??26.1?(DEC 06)?L??25.5?(DEC 05)?L??27.5?(DEC 04) Plt ?L??71?(DEC 07)?L??58?(DEC 06)?C??41?(DEC 05)?C??32?(DEC 04) Na ?139?(DEC 05)?141?(DEC 04)?141?(DEC 03)?138?(DEC 02) K ?4.5?(DEC 05)?4.6?(DEC 04)?3.7?(DEC 03)?4.2?(DEC 02) CO2 ?24?(DEC 05)?26?(DEC 04)?27?(DEC 03)?26?(DEC 02) Cr ?1.20?(DEC 05)?1.10?(DEC 04)?H??1.40?(DEC 03)?H??1.60?(DEC 02) BUN ?H??41?(DEC 05)?H??31?(DEC 04)?H??38?(DEC 03)?H??40?(DEC 02) Glucose Random ?H??194?(DEC 05)?H??178?(DEC 04)?H??111?(DEC 03)?H??143?(DEC 02) PT ?H??12.7?(DEC 02) INR ?H??1.3?(DEC 02) Discharge Plan 1.??Influenza A??J10.1 Tamiflu completed for 5 days??doing well except for some mild wheezing, on nebulizers Ordered: Discharge Patient, 12/07/23 11:48:00 EST ?? 2.??Generalized weakness??R53.1 Multifactorial including??large amount of chronic medical disease??a lot of hospitalizations and weakness.?? We will attempt to get her stronger with some rehab??for her goal of going back home??weekor 2 from now Ordered: Discharge Patient, 12/07/23 11:48:00 EST ?? 3.??Chronic renal insufficiency??N18.9 Acute kidney injury at??admission 1.6, creatinine down to 1.21 we stop checking Ordered: Discharge Patient, 12/07/23 11:48:00 EST ?? 4.??Pulmonary embolus??I26.99 She continues on Eliquis with a low platelets without any??incident which was recommended by hematology Ordered: Discharge Patient, 12/07/23 11:48:00 EST ?? 5.??Idiopathic thrombocythemia??D47.3 Spoke with hematology when her platelets started dropping getting down to 31.?? They stated that influenza was highly likely cause of this and 4 days of Decadron 40 mg should help.?? They stated thatpurely from an ITP standpoint she would be dischargeable.?? We kept her here for the aforementioned reasons??platelets up to 71 now??she is off Decadron.?? At this point would recommend rechecking labs in 1 week Ordered: Discharge Patient, 12/07/23 11:48:00 EST ?? 6.??Diabetes mellitus??E11.9 Some mild steroid-induced hyperglycemia??but she is off steroids now so anticipate this to get better Ordered: Discharge Patient, 12/07/23 11:48:00 EST ?? All Diagnoses This Visit Influenza A Generalized weakness Chronic renal insufficiency Pulmonary embolus Idiopathic thrombocythemia Diabetes mellitus Medication Reconciliation Unchanged albuterol (Albuterol (Eqv-Proventil HFA) [...] 30 minutes after taking.. Refills: 1. ?? apixaban (Eliquis 5 mg oral tablet)1 tab Oral (given by mouth) 2 times a day. Refills: 0. ?? ascorbic acid (Vitamin C 500 mg [...] by mouth) every morning. Electronically Signed on 12/07/23 12:14 PM David Flores MD Patient Care team information Care Team Personnel Name: Sanaz Fang APRN, Position: Physician Member Role: Nurse Practitioner Address: Address: [address] [place] [address] Name: Anabel Hallman APRN Position: Physician Member Role: Nurse Practitioner Address: Address: [address] [place] [address] Name: Mally Vazquez APRN Position: Physician Member Role: Primary Care Physician Address: Address: [address] [place] [address] [place] [address] Care Team Related Persons Name: LAURA LEON
--- OUTSIDE RECORDS SUMMARY | 2024-04-25 04:08 | XMS_ITS | Continuity of Care Document ---
Author Name Unknown Organization [facility] Address [address] [place] [address] Care Team Providers Care Car Repairer Pullman Name Role Phone Mally Vazquez APRN Primary Care Physician [phone] Encounter [facility] FIN NBR [id number] Date(s): 01/21/23 - 01/21/[address] [address]- Encounter Diagnosis Unspecified injury of unspecified kidney, initial encounter(Final) - Unspecified external cause status(Final) - Discharge Disposition: Home or Self Care Attending Physician: Mally Vazquez APRN Admitting Physician: Mally Vazquez APRN Referring Physician: Mally Vazquez APRN Allergies, Adverse Reactions, Alerts Substance Reaction Severity Status narcotic analgesics Unknown Active sulfa drugs Rash Hallucinations Unknown Active Flomax Dizziness Unknown Active Assessment and Plan Future Appointments Appointment Date:01/23/2023 10:00:00 AM Scheduled Provider:Kylie Beckwith Location:[facility]Re[facility] Appointment Type:SP Treatment Immunizations Given and Recorded Vaccine Date Status Refusal Reason influenza virus vaccine, inactivated 1 08/02/22 Re corded SARS-CoV-2 mRNA (tozinameran 12y+) bival 2 08/02/22 Recorded 1Result Comment: RD done at [facility] Lot: [id number] exp: 05/08/2023 Sanofi 2Result Comment: Lot: [id number] Exp: 06/08/23 LD done at [facility] Medications Acidophilus Probiotic Blend 1 cap, Oral, Daily, 0 Refill(s) Start Date: 08/11/22 Status: Ordered Albuterol (Eqv-Proventil HFA) 90 mcg/inh inhalation aerosol 1 puffs, Inhale, every 4 hr, PRN as needed for wheezing, Do not exceed 12 inhalations in a 24-hour period., # 1 EA, 0 Refill(s), Pharmacy: [id number], 170, cm, 11/11/22 12:19:00 EST, Height/Length Dosing, 96, kg, 11/11/22 12:19:00 EST, Weight... Start Date: 11/25/22 Status: Ordered alendronate 70 mg oral tablet 70 mg = 1 tab, Oral, every week, typically takes on Thursday, # 12 tab, 0 Refill(s), Pharmacy: [facility], 114.09, cm, 08/12/22 16:18:00 EDT, [...] evening, # 90 tab, 3 Refill(s), Pharmacy: [facility],114.09, cm, 08/12/22 16:18:00 EDT, Height/Length [...] morning, # 90 tab, 3 Refill(s), Pharmacy: [facility],114.09, cm, 08/12/22 16:18:00 EDT, Height/Length [...] Daily, # 90 tab, 3 Refill(s), Pharmacy: [facility], 114.09, cm, 08/12/22 16:18:00 EDT, Height/Length Dosing, 165, kg, 08/12/22 16:18:00 EDT, Weight Dosing Start Date: 10/24/22 Stop Date: 10/19/23 Status: Ordered metFORMIN 500 mg oral tablet 500 mg = 1 tab, Oral, every evening, # 90 tab, 3 Refill(s), Pharmacy: [facility], 114.09, cm, 08/12/22 16:18:00 EDT, Height/Length Dosing, 165, kg, 08/12/22 16:18:00 EDT, Weight Dosing Start Date: 10/24/22 Stop Date: 10/19/23 Status: Ordered metoprolol tartrate 25 mg oral tablet 25 mg = 1 tab, Oral, BID, # 180 tab, 3 Refill(s), Pharmacy: [facility], 114.09, cm, 08/12/22 16:18:00 EDT, [...] List Name Date Basic Metabolic Panel (BMP) 01/21/23 Most recent to oldest [Reference Range]: 1 BUN [8-26 mg/dL] 28 mg/dL *HI* (01/21/23 10:15 AM) Glucose Level [74-106 mg/dL] 165 mg/dL *HI* (01/21/23 10:15 AM) Potassium Level [3.5-5.1 mmol/L] 4.1 mmo l/L (01/21/23 10:15 AM) Osmolality [275-295 mOsm/kg] 287 mOsm/kg (01/21/23 10:15 AM) Sodium Level [134-143 mmol/L] 139 mmol/L (01/21/23 10:15 AM) Calcium Level [8.9-10.3 mg/dL] 9.1 mg/dL (01/21/23 10:15 AM) CO2 [22-32 mmol/L] 28 mmol/L (01/21/23 10:15 AM) Chloride Level [98-111 mmol/L] 101 mmol/ L (01/21/23 10:15 AM) BUN/Creat Ratio [8.0-20.0] 23.0 *HI* (01/21/23 10:15 AM) Creatinine Level [0.44-1.00 mg/dL] 1.22 mg/dL *HI* (01/21/23 10:15 AM) Anion Gap [3.0-12.0] 10.0 (01/21/23 10:15 AM) eGFR CKD-EPI [>=60 mL/min/1.73 m2] 46 mL /min/1.73 m2 *LOW* (01/21/23 10:15 AM) Social History Social History Type Response Tobacco Never tobacco user T obacco Use:. 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 Katlyn Peoples DO 08/12/22 Non Biological Knee L Device Identifier Serial Number Lot or Batch Number Manufacturing Date Expiration Date Distinct Identification Code MRI Safety Implantable Status Assigning Authority Unknown NA [id number] Unknown 08/07/24 Unknown Unknown Active Unknown Unknown N/A [id number] 2 Unknown 06/10/32 Unknown Unknown Active Unknown Unknown NA [id number] Unknown 04/01/27 Unknown Unknown Active Unknown Unknown N/A [id number] 2 Unknown 12/07/31 Unknown Unknown Active Unknown Unknown N/A [id number] 2 Unknown 2/6/27 Unknown Unknown Active Unknown Patient Care team information Care Team Personnel Name: Sanaz Fang APRN, Position: Physician Member Role: Nurse Practitioner Address: Address: [address] [place] [address] Name: Anabel Peoples APRN Position: Physician Member Role: Nurse Practitioner Address: Address: [address] [place] [address] Name: Mally Vazquez APRN Position: Physician Member Role: Primary Care Physician Address: Address: [address] [place] [address] Care Team Related Persons Name: LAURA LEON Address: Home
--- OUTSIDE RECORDS SUMMARY | 2024-04-25 04:08 | XMS_ITS | Continuity of Care Document ---
Author Name Unknown Organization [facility] Address [address] [place] [address] Care Team Providers Care Software Systems Analyst Name Role Phone Mally Vazquez APRN Primary Care Physician Encounter [facility] NBR [id number] Date(s): 11/06/23 - 11/06/23 [facility] [address] [place] [address]- [place] Encounter Diagnosis Generalized weakness(Discharge Diagnosis) - 11/06/23 Exertional dyspnea(Discharge Diagnosis) - 11/06/23 Fatigue(Discharge Diagnosis) - 11/06/23 Discharge Disposition: Home or Self Care Attending Physician: Asya Aquino PA-C Allergies, Adverse Reactions, Alerts Substance Reaction Severity Status narcotic analgesics 1 Unknown Active sulfa drugs Rash Hallucinations Unknown Active Flomax Dizziness Unknown Active 1coma for 4 days . unsure what they got Assessment and Plan Future Appointments Future Scheduled Tests Laboratory* Comprehensive Metabolic Panel 09/18/23 Radiology* US Kidney Bladder 08/31/23 Functional Status 11/06/23 Recent Travel History No recent travel Other exposure to Infectious Disease Non e Immunizations Given and Recorded Vaccine Date Status Refusal Reason influenza virus vaccine, inactivated 1 08/02/22 Re corded SARS-CoV-2 mRNA (tolaminn 12y+) bival 2 08/02/22 Recorded 1Result Comment: RD done at [place] Lot: [id number] exp: 05/08/2023 Sanofi 2Result Comment: Lot: [id number] Exp: 06/08/23 LD done at [place] Medications Albuterol (Eqv-Proventil HFA) 90 mcg/inh inhalation aerosol 1 puffs, Inhale, every 4 hr, PRN as needed for wheezing, Do not exceed 12 inhalations in a 24-hour period., # 1 EA, 0 Refill(s), Pharmacy: [id number], 170, cm, 11/11/22 12:19:00 EST, [...] taking., # 12 tab, 1 Refill(s), Pharmacy: [facility], 170, cm, 11/11/22 12:19:00 EST, Height/Length Dosing, 96, kg, 11/11/22 12:19:00 EST, Weight Dosing Start Date: 07/21/23 Stop Date: 01/05/24 Status: Ordered atorvastatin 10 mg oral tablet 10 mg = 1 tab, Oral, every evening, # 90 tab, 3 Refill(s), Pharmacy: [facility],114.09, cm, 08/12/22 16:18:00 EDT, Height/Length [...] morning, # 90 tab, 3 Refill(s), Pharmacy: [facility], 165, cm, 09/24/23 19:47:00 EST, Height, 102.2, kg, 09/24/23 19:47:00 EST, Weight Dosing Start Date: 10/13/23 Status: Ordered gabapentin 100 mg oral capsule 100 mg = 1 cap, Oral, Daily, # 90 cap, 3 Refill(s), Pharmacy: [facility], 165, cm, 09/24/23 19:47:00 EST, Height, 102.2, kg, 09/24/23 19:47:00 EST, Weight Dosing Start Date: 10/13/23 Stop Date: 10/07/24 Status: Ordered Jardiance 10 mg oral tablet 1 tab, Oral, every morning, # 30 tab, 0 Refill(s), Pharmacy: [facility] #[id number], 165, cm, 09/24/2319:47:00 EST, Height, [...] STOMACH, # 90 tab, 3 Refill(s), Pharmacy: [facility], 170, cm, 11/11/22 12:19:00 EST, Height/Length Dosing, 96, kg,11/11/22 12:19:00 EST, Weight Dosing Start Date: 04/14/23 Status: Ordered losartan 100 mg oral tablet 1 tab, Oral, Daily, # 90 tab, 3 Refill(s), Pharmacy: [facility], 165, cm, 09/24/23 19:47:00 EST, Height, 102.2, kg, 09/24/23 19:47:00 EST, Weight Dosing Start Date: 10/01/23 Status: Ordered metoprolol tartrate 25 mg oral tablet 25 mg = 1 tab, Oral, BID, # 180 tab, 3 Refill(s), Pharmacy: [facility], 170, cm,11/11/22 12:19:00 EST, Height/Length Dosing, 96, kg, 11/11/22 12:19:00 EST, Weight Dosing Start Date: 08/25/23 Stop Date: 08/19/24 Status: Ordered multivitamin adult, oral tablet 1 tab, Oral, Daily Start Date: 08/11/22 Status: Ordered Morningstar oral capsule 8 EA, TAKE 1 CAPSULE BY MOUTH TWICE DAILY, 0 Refill(s) Start Date: 04/22/23 Status: Ordered Please provide one touch ultra test strips Please provide one touch ultra test strips, For blood glucose monitoring once daily., Supply, See instructions, # 100 EA, 3 Refill(s), Pharmacy: [facility] Start Date: 10/23/23 Status: Ordered [...] 1 Temperature Tympanic [36.6-38.1 Deg C] 3 6.3 Deg C *LOW* (11/06/23 8:28 AM) Peripheral Pulse Rate [60-100 bpm] 81 bp m (11/06/23 8:28 AM) Blood Pressure [90-140/60-90 mmHg] 110/5 4mmHg (11/06/23 8:28 AM) Mean Arterial Pressure, Cuff [70-110 mmH g] 73 mmHg (11/06/23 8:28 AM) [place] Body Weight Calculated 56.909 kg (11/06/23 8:28 AM) Height 165 cm (11/06/23 8:28 AM) Height/Length Measured (inches) 64.96 in ch (11/06/23 8:28 AM) Social History Social History Type Response Tobacco Never tobacco user T obacco Use:. 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 Katlyn Watershur, DO 08/12/22 Non Biological Knee L Device Identifier Serial Number Lot or Batch Number Manufacturing Date Expiration Date Distinct Identification Code MRI Safety Implantable Status Assigning Authority Unknown NA [id number] Unknown 08/07/24 Unknown Unknown Active Unknown Unknown N/A [id number] Unknown 06/10/32 Unknown Unknown Active Unknown Unknown NA [id number] Unknown 04/01/27 Unknown Unknown Active Unknown Unknown N/A [id number] 2 Unknown 12/07/31 Unknown Unknown Active Unknown Unknown N/A [id number] 2 Unknown 12/15/26 Unknown Unknown Active Unknown Patient Care team information Care Team Personnel Name: Sanaz Fang APRN, Position: Physician Member Role: Nurse Practitioner Address: Address: [address] [place] [address] Name: Anabel Hallman APRN Position: Physician Member Role: Nurse Practitioner Address: Address: [address] [place] [address] Name: Mally Vazquez APRN Position: Physician Member Role: Primary Care Physician Address: Address: [address] [place] [address] Care Team Related Persons Name: LAURA LEON
--- OUTSIDE RECORDS SUMMARY | 2024-04-25 04:08 | XMS_ITS | Continuity of Care Document ---
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 Setter Chainstitch Name Role Phone Mally Vazquez APRN Primary Care Physician [phone] Encounter [facility] NBR [id number] Date(s): 01/06/23 - 01/06/23 [facility] [address] [place], [place] [address] Encounter Diagnosis Anemia of chronic disorder(Discharge Diagnosis) - 01/06/23 Screening for metabolic disorder(Discharge Diagnosis) - 01/06/23 Left shoulder pain(Discharge Diagnosis) - 01/06/23 Right knee pain(Discharge Diagnosis) - 01/06/23 Diabetes mellitus type 2(Discharge Diagnosis) - 01/06/23 Discharge Disposition: Home or Self Care Attending Physician: Mally Vazquez APRN Allergies, Adverse Reactions, Alerts Substance Reaction Severity Status narcotic analgesics Unknown Active sulfa drugs Rash Hallucinations Unknown Active Flomax Dizziness Unknown Active Assessment and Plan Future Appointments Future Scheduled Tests Laboratory* Basic Metabolic Panel 12/02/22 Functional Status 01/06/23 Living Environment Home Environment No qualifying data available Other exposure to Infectious Disease Non e Immunizations Given and Recorded Vaccine Date Status Refusal Reason influenza virus vaccine, inactivated 1 08/02/22 Re corded SARS-CoV-2 mRNA (tozinameran 12y+) bival 2 08/02/22 Recorded 1Result Comment: RD done at [place] Lot: [id number] exp: 05/08/2023 Sanofi 2Result Comment: Lot: [id number] Exp: 06/08/23 LD done at [facility] Medications Acidophilus Probiotic Blend 1 cap, Oral, Daily, 0 Refill(s) Start Date: 08/11/22 Status: Ordered Albuterol (Eqv-Proventil HFA) 90 mcg/inh inhalation aerosol 1 puffs, Inhale, every 4 hr, PRN as needed for wheezing, Do not exceed 12 inhalations in a 24-hour period., # 1 EA, 0 Refill(s), Pharmacy: [facility] #[id number], 170, cm, 11/11/22 12:19:00 EST, Height/Length Dosing, 96, kg, 11/11/22 12:19:00 EST, Weight... Start Date: 11/25/22 Status: Ordered alendronate 70 mg oral tablet 70 mg = 1 tab, Oral, every week, typically takes on Thursday, # 12 tab, 0 Refill(s), Pharmacy: [facility], 114.09, cm, 08/12/22 16:18:00 EDT, [...] evening, # 90 tab, 3 Refill(s), Pharmacy: [facility],114.09, cm, 08/12/22 16:18:00 EDT, Height/Length [...] morning, # 90 tab, 3 Refill(s), Pharmacy: [facility],114.09, cm, 08/12/22 16:18:00 EDT, Height/Length Dosing, 165, kg, 08/12/22 16:18:00 EDT, Weight Dosing Start Date: 10/24/22 Stop Date: 10/19/23 Status: Ordered gabapentin 100 mg oral capsule 100 mg = 1 cap, Oral, BID, # 180 cap, 1 Refill(s), Pharmacy: [facility], 114.09,cm, 08/12/22 16:18:00 EDT, Height/Length [...] # 90 tab, 3 Refill(s), Pharmacy: [facility], 114.09, cm, 08/12/22 16:18:00 EDT, Height/Length Dosing, 165, kg, 08/12/22 16:18:00 EDT, Weight Dosing Start Date: 10/24/22 Stop Date: 10/19/23 Status: Ordered metFORMIN 500 mg oral tablet 500 mg = 1 tab, Oral, every evening, # 90 tab, 3 Refill(s), Pharmacy: [facility], 114.09, cm, 08/12/22 16:18:00 EDT, Height/Length Dosing, 165, kg, 08/12/22 16:18:00 EDT, Weight Dosing Start Date: 10/24/22 Stop Date: 10/19/23 Status: Ordered metoprolol tartrate 25 mg oral tablet 25 mg = 1 tab, Oral, BID, # 180 tab, 3 Refill(s), Pharmacy: [facility], 114.09, cm, 08/12/22 16:18:00 EDT, [...] Range]: 1 Peripheral Pulse Rate [60-100 bpm] 70 bp m (01/06/23 10:09 AM) Blood Pressure [90-140/60-90 mmHg] 128/6 5mmHg (01/06/23 10:09 AM) Weight 218 kg (01/06/23 10:09 AM) Weight Measured (lbs) 480.607 lb (01/06/23 10:09 AM) Social History Social History Type Response Tobacco Never tobacco user T obacco Use:. 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 Prateekemiliana Richelle, DO 08/12/22 Non Biological Knee L Device Identifier Serial Number Lot or Batch Number Manufacturing Date Expiration Date Distinct Identification Code MRI Safety Implantable Status Assigning Authority Unknown NA [id number] Unknown 08/07/24 Unknown Unknown Active Unknown Unknown N/A [id number] 2 Unknown 06/10/32 Unknown Unknown Active Unknown Unknown NA [id number] 1 Unknown 04/01/27 Unknown Unknown Active Unknown Unknown N/A [id number] 2 Unknown 12/07/31 Unknown Unknown Active Unknown Unknown N/A [id number] 2 Unknown 12/15/26 Unknown Unknown Active Unknown Patient Care team information Care Team Personnel Name: Sanaz Fang APRN, Position: Physician Member Role: Nurse Practitioner Address: Address: [address] [place] [address] Name: Anabel Peoples APRN Position: Physician Member Role: Nurse Practitioner Address: Address: [address] [place] [address] Name: Mally Vazquez APRN Position: Physician Member Role: Primary Care Physician Address: Address: [address] [place] [address] [place] Care Team Related Persons Name: LAURA LEON
--- OUTSIDE RECORDS SUMMARY | 2024-04-25 04:08 | XMS_ITS | Continuity of Care Document ---
Author Name Unknown Organization [facility] Ambulatory [facility] Address [address] [place] [address] Care Team Providers Care Block Saw Operator Name Role Phone Mally Vazquez APRN Primary Care Physician Encounter [facility] NBR [id number] Date(s): 09/08/23 - 09/08/23 [facility] Ambulatory [facility]ics [address] [place] [address]- [place] Discharge Disposition: Home Allergies, [...] 08/02/22 Recorded 1Result Comment: RD done at [facility] Lot: [id number] exp: 05/08/2023 Sanofi 2Result Comment: Lot: [id number] Exp: 06/08/23 LD done at [facility] Medications Albuterol (Eqv-Proventil HFA) 90 mcg/inh inhalation aerosol 1 puffs, Inhale, every 4 hr, PRN as needed for wheezing, Do not exceed 12 inhalations in a 24-hour period., # 1 EA, 0 Refill(s), Pharmacy: [facility] #[id number], 170, cm, 11/11/22 12:19:00 EST, [...] taking., # 12 tab, 1 Refill(s), Pharmacy: [facility], 170, cm, 11/11/22 12:19:00 EST, [...] evening, # 90 tab, 3 Refill(s), Pharmacy: [facility],114.09, cm, 08/12/22 16:18:00 EDT, Height/Length [...] morning, # 90 tab, 3 Refill(s), Pharmacy: [facility],114.09, cm, 08/12/22 16:18:00 EDT, Height/Length Dosing, 165, kg, 08/12/22 16:18:00 EDT, Weight Dosing Start Date: 10/24/22 Stop Date: 10/19/23 Status: Ordered gabapentin 100 mg oral capsule 100 mg = 1 cap, Oral, Daily, # 90 cap, 0 Refill(s), Pharmacy: [facility], 170, cm, 11/11/22 12:19:00 EST, Height/Length Dosing, 96, kg, 11/11/22 12:19:00 EST, Weight Dosing Start Date: 06/05/23 Stop Date: 09/03/23 Status: Ordered Jardiance 10 mg oral tablet 10 mg = 1 tab, Oral, every morning, # 30 tab, 0 Refill(s), Pharmacy: [facility] #[id number], 170, cm, 11/11/22 12:19:00 EST, Height/Length Dosing, 96, kg, 11/11/22 12:19:00 EST, Weight Dosing Start Date: 08/28/23 Status: Ordered levothyroxine 137 mcg (0.137 mg) oral tablet See Instructions, TAKE 1 TABLET DAILY IN THE MORNING ON AN EMPTY STOMACH, # 90 tab, 3 Refill(s), Pharmacy: [facility], 170, cm, 11/11/22 12:19:00 EST, Height/Length Dosing, 96, kg,11/11/22 12:19:00 EST, Weight Dosing Start Date: 04/14/23 Status: Ordered losartan 100 mg oral tablet 100 mg = 1 tab, Oral, Daily, # 90 tab, 3 Refill(s), Pharmacy: [facility], 114.09, cm, 08/12/22 16:18:00 EDT, Height/Length Dosing, 165, kg, 08/12/22 16:18:00 EDT, Weight Dosing Start Date: 10/24/22 Stop Date: 10/19/23 Status: Ordered metoprolol tartrate 25 mg oral tablet 25 mg = 1 tab, Oral, BID, # 180 tab, 3 Refill(s), Pharmacy: [facility], 170, cm,11/11/22 12:19:00 EST, Height/Length Dosing, 96, kg, 11/11/22 12:19:00 EST, Weight Dosing Start Date: 08/25/23 Stop Date: 08/19/24 Status: Ordered multivitamin adult, oral tablet 1 tab, Oral, Daily Start Date: 08/11/22 Status: Ordered ComponentLab oral capsule 8 EA, TAKE 1 CAPSULE [...] Safety Implantable Status Assigning Authority Unknown NA [id number] Unknown 08/07/24 Unknown Unknown Active Unknown Unknown N/A [id number] 2 Unknown 06/10/32 Unknown Unknown Active Unknown Unknown NA [id number] 1 Unknown 04/01/27 Unknown Unknown Active Unknown Unknown N/A [id number] 2 Unknown 12/07/31 Unknown Unknown Active Unknown Unknown N/A [id number] 2 Unknown 12/15/26 Unknown Unknown Active Unknown Patient Care team information Care Team Personnel Name: Sanaz Fang APRN, Position: Physician Member Role: Nurse Practitioner Address: Address: [address] [place] [address] Name: Anabel Hallman APRN Position: Physician Member Role: Nurse Practitioner Address: Address: [address] [address] Name: Mally Vazquez APRN Position: Physician Member Role: Primary Care Physician Address: Address: [address] [place] [address] Care Team Related Persons Name: LAURA LEON
--- OUTSIDE RECORDS SUMMARY | 2024-04-25 04:08 | XMS_ITS | Continuity of Care Document ---
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 Tank Driver Name Role Phone Mally Vazquez APRN Primary Care Physician Encounter [facility] NBR [id number] Date(s): 11/25/22 - 11/25/[address] [address]- [place] Discharge Disposition: Home or [...] 08/02/22 Recorded 1Result Comment: RD done at [facility] Lot: [id number] exp: 05/08/2023 Sanofi 2Result Comment: Lot: [id number] Exp: 06/08/23 LD done at [facility] Medications Acidophilus Probiotic Blend 1 cap, Oral, Daily, 0 Refill(s) Start Date: 08/11/22 Status: Ordered Albuterol (Eqv-Proventil HFA) 90 mcg/inh inhalation aerosol 1 puffs, Inhale, every 4 hr, PRN as needed for wheezing, Do not exceed 12 inhalations in a 24-hour period., # 1 EA, 0 Refill(s), Pharmacy: [facility] #[id number], 170, cm, 11/11/22 12:19:00 EST, Height/Length Dosing, 96, kg, 11/11/22 12:19:00 EST, Weight... Start Date: 11/25/22 Status: Ordered alendronate 70 mg oral tablet 70 mg = 1 tab, Oral, every week, typically takes on Thursday, # 12 tab, 0 Refill(s), Pharmacy: [facility], 114.09, cm, 08/12/22 16:18:00 EDT, Height/Length Dosing, 165, kg, 08/12/22 16:18:00 EDT, Weight Dosing Start Date: 11/06/22 Status: Ordered Aspirin Enteric Coated 325 mg = 1 tab, Oral, BID, 0 Refill(s) Start Date: 08/21/22 Status: Ordered atorvastatin 10 mg oral tablet 10 mg = 1 tab, Oral, every evening, # 90 tab, 3 Refill(s), Pharmacy: [facility],114.09, cm, 08/12/22 16:18:00 EDT, Height/Length [...] morning, # 90 tab, 3 Refill(s), Pharmacy: [facility],114.09, cm, 08/12/22 16:18:00 EDT, Height/Length Dosing, 165, kg, 08/12/22 16:18:00 EDT, Weight Dosing Start Date: 10/24/22 Stop Date: 10/19/23 Status: Ordered gabapentin 100 mg oral capsule 100 mg = 1 cap, Oral, BID, # 180 cap, 1 Refill(s), Pharmacy: [facility], 114.09,cm, 08/12/22 16:18:00 EDT, Height/Length [...] Daily, # 90 tab, 3 Refill(s), Pharmacy: [facility], 114.09, cm, 08/12/22 16:18:00 EDT, Height/Length Dosing, 165, kg, 08/12/22 16:18:00 EDT, Weight Dosing Start Date: 10/24/22 Stop Date: 10/19/23 Status: Ordered metFORMIN 500 mg oral tablet 500 mg = 1 tab, Oral, every evening, # 90 tab, 3 Refill(s), Pharmacy: [facility], 114.09, cm, 08/12/22 16:18:00 EDT, Height/Length Dosing, 165, kg, 08/12/22 16:18:00 EDT, Weight Dosing Start Date: 10/24/22 Stop Date: 10/19/23 Status: Ordered metoprolol tartrate 25 mg oral tablet 25 mg = 1 tab, Oral, BID, # 180 tab, 3 Refill(s), Pharmacy: [facility], 114.09, cm, 08/12/22 16:18:00 EDT, Height/Length Dosing, 165, kg, 08/12/22 16:18:00 EDT, Weight Dosing Start Date: 10/24/22 Stop Date: 10/19/23 Status: Ordered multivitamin adult, oral tablet 1 tab, Oral, Daily Start Date: 08/11/22 Status: Ordered predniSONE 20 mg oral tablet 20 mg = 1 tab, Oral, Daily, with food or milk, # 5 tab, 0 Refill(s), Pharmacy: [facility] #[id number],170, cm, 11/11/22 12:19:00 EST, Height/Length [...] Exam Date Time Procedure Performing Provider Status 11/25/22 11:55 AM XR Chest 2 Views Dana Garcia (Verified) Notes: (XR Chest 2 Views) Reason For Exam: cough, ? PNA XR Chest 2 Views EXAM DESCRIPTION: XR Chest 2 Views 11/25/2022 INDICATION: COUGH, ? PNA COMPARISON: 11/11/2022 IMPRESSION: Mild patchy interstitial infiltrate in the right mid-lower lung field, improved since prior study. Lungs otherwise grossly clear with no focal consolidation or pulmonary edema. Mild stable cardiomegaly with previous median sternotomy and valve replacement. No pleural effusion or pneumothorax Spondylotic changes of the dorsal spine. JOB #: [id number] Final Signed by: Kishore Parra MD Signed (Electronic Signature): 11/25/2022 11:59 am Social History Social History Type Response Tobacco Never tobacco user T obacco Use:. 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 Prateekemiliana Richelle, DO 08/12/22 Non Biological Knee L Device Identifier Serial Number Lot or Batch Number Manufacturing Date Expiration Date Distinct Identification Code MRI Safety Implantable Status Assigning Authority Unknown NA [id number] Unknown 08/07/24 Unknown Unknown Active Unknown Unknown N/A [id number] 2 Unknown 06/10/32 Unknown Unknown Active Unknown Unknown NA [id number] 1 Unknown 04/01/27 Unknown Unknown Active Unknown Unknown N/A [id number] 2 Unknown 12/07/31 Unknown Unknown Active Unknown Unknown N/A [id number] 2 Unknown 12/15/26 Unknown Unknown Active Unknown XR Chest 2 Views * Kishore Parra MD: VERIFY, VERIFY Event Display: Report EXAM DESCRIPTION: XR Chest 2 Views 11/25/2022 INDICATION: COUGH, ? PNA COMPARISON: 11/11/2022 IMPRESSION: Mild patchy interstitial infiltrate in the right mid-lower lung field, improved since prior study. Lungs otherwise grossly clear with no focal consolidation or pulmonary edema. Mild stable cardiomegaly with previous median sternotomy and valve replacement. No pleural effusion or pneumothorax Spondylotic changes of the dorsal spine. JOB #: [id number] Final Signed by: Kishore Parra MD Signed (Electronic Signature): 11/25/2022 11:59 am Patient Care team information Personnel Name: Mally Vazquez APRN Address: Address: [address] [place] [phone]
--- OUTSIDE RECORDS SUMMARY | 2024-04-25 04:08 | XMS_ITS | Continuity of Care Document ---
Author Name Unknown Organization [facility] Address [address] [place] [address] Care Team Providers Care Transport Engineer Name Role Phone Belgica Farr MD Primary Care Physician [phone] [facility] NBR [id number] Date(s): 09/24/22 - 09/24/[address] [address]- Discharge Disposition: Home or Self Care Attending Physician: Katlyn Peoples DO Admitting Physician: Katlyn Peoples DO Allergies, Adverse Reactions, Alerts Substance Reaction Severity Status sulfa drugs Rash Hallucinations Unknown Active Flomax Dizziness Unknown Active Assessment and Plan Future Appointments Medications acetaminophen 325 mg oral tablet 650 mg = 2 tab, Oral, every 6 hr, PRN pain, mild, 0 Refill(s) Start Date: 08/21/22 Status: Ordered Acidophilus Probiotic Blend 1 cap, Oral, Daily, 0 Refill(s) Start Date: 08/11/22 Status: Ordered alendronate 70 mg oral tablet 70 mg = 1 tab, Oral, every week, on Thursday, 0 Refill(s) Start Date: 08/11/22 Status: Ordered Aspirin Enteric Coated 325 mg = 1 tab, Oral, BID, 0 Refill(s) Start Date: 08/21/22 Status: Ordered atorvastatin 10 mg oral tablet 10 mg = 1 tab, Oral, every evening Start Date: 08/11/22 Status: Ordered calcium (as carbonate)-vitamin D 600 mg-200 intl units oral tablet 1 tab, Oral, Daily Start Date: 08/11/22 Status: Ordered cephalexin 500 mg oral capsule 500 mg = 1 cap, Oral, QID, # 28 cap, 0 Refill(s), called to pharmacy (Rx) Start Date: 08/27/22 Stop Date: 09/03/22 Status: Ordered citalopram 20 mg oral tablet [...] 40 mg = 1 tab, Oral, every morning Start Date: 08/11/22 Status: Ordered gabapentin 300 mg oral capsule 300 mg = 1 cap, Oral, BID Start Date: 08/11/22 Status: Ordered ipratropium-albuterol 0.5 mg-2.5 mg/3 mL inhalation solution 3 mL, NEB, every 4 hr, PRN shortness of breath, 0 Refill(s) Start Date: 08/21/22 Status: Ordered lansoprazole 30 mg oral delayed release capsule 30 mg = 1 cap, Oral, every morning Start Date: 08/11/22 Status: Ordered levothyroxine 137 mcg (0.137 mg) oral tablet 137 mcg = 1 tab, Oral, With Morning Meal Start Date: 08/11/22 Status: Ordered losartan 50 mg oral tablet 50 mg = 1 tab, Oral, every morning Start Date: 08/11/22 Status: Ordered metFORMIN 500 mg oral tablet 500 mg = 1 tab, Oral, every evening Start Date: 08/11/22 Status: Ordered metoprolol tartrate 50 mg oral tablet 50 mg = 1 tab, Oral, BID Start Date: 08/11/22 Status: Ordered multivitamin adult, oral tablet 1 [...] Exam Date Time Procedure Performing Provider Status 09/24/22 12:19 PM XR Knee Complete 4+ Views Left Twan Schulz; Ariadna (Verified) Notes: (XR Knee Complete 4+ Views Left) Reason For Exam: f/u left total knee arthroplasty XR Knee Complete 4+ Views Left EXAM DESCRIPTION: XR Knee Complete 4+ Views Left 09/24/2022 INDICATION: F/U LEFT TOTAL KNEE ARTHROPLASTY COMPARISON: 08/12/2022 IMPRESSION: Status post left total knee arthroplasty with stable satisfactory appearance. No focal lytic or destructive changes. No acute fracture or dislocation. JOB #: [id number] Final Signed by: Kishore Parra MD Signed (Electronic Signature): 09/24/2022 12:24 pm Social History Social History Type Response Tobacco Never tobacco user T obacco Use:. 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 Katlyn Peoples, DO 08/12/22 Non Biological Knee L Device Identifier Serial Number Lot or Batch Number Manufacturing Date Expiration Date Distinct Identification Code MRI Safety Implantable Status Assigning Authority Unknown NA [id number] 802 Unknown 08/07/24 Unknown Unknown Active Unknown Unknown N/A [id number] 2 Unknown 06/10/32 Unknown Unknown Active Unknown Unknown NA [id number] 1 Unknown 04/01/27 Unknown Unknown Active Unknown Unknown N/A [id number] 2 Unknown 12/07/31 Unknown Unknown Active Unknown Unknown N/A [id number] 2 Unknown 12/15/26 Unknown Unknown Active Unknown XR Knee - left GE 4 Views * Kishore Parra MD: VERIFY, VERIFY Event Display: Report EXAM DESCRIPTION: XR Knee Complete 4+ Views Left 09/24/2022 INDICATION: F/U LEFT TOTAL KNEE ARTHROPLASTY COMPARISON: 08/12/2022 IMPRESSION: Status post left total knee arthroplasty with stable satisfactory appearance. No focal lytic or destructive changes. No acute fracture or dislocation. JOB #: [id number] Final Signed by: Kishore Parra MD Signed (Electronic Signature): 09/24/2022 12:24 pm Patient Care team information Personnel Name: Belgica Farr MD Address: Address: [address]
--- OUTSIDE RECORDS SUMMARY | 2024-04-25 04:09 | XMS_ITS | Continuity of Care Document ---
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 Name Role Phone Belgica Farr MD Primary Care Physician [phone] Encounter [facility] NBR [id number] Date(s): 09/16/22 - 09/16/22 [facility] Ambulatory Clinics [address] [place], [place] [address] Encounter Diagnosis Hoarseness of voice(Discharge Diagnosis) - 09/16/22 Follow-up surgery care(Discharge Diagnosis) - 09/16/22 Discharge Disposition: Home or Self Care Attending Physician: Mally Vazquez APRN Allergies, Adverse Reactions, Alerts Substance Reaction Severity Status sulfa drugs Rash Hallucinations Unknown Active Flomax Dizziness Unknown Active Assessment and Plan Future Appointments Functional Status 09/16/22 Other exposure to Infectious Disease Non e Medications acetaminophen 325 mg oral tablet 650 [...] to oldest [Reference Range]: 1 Temperature Tympanic [36.6-37.9 Deg C] 3 6.7 Deg C (09/16/22 1:04 PM) Peripheral Pulse Rate [60-100 bpm] 74 bp m (09/16/22 1:04 PM) Blood Pressure [90-140/60-90 mmHg] 118/7 0mmHg (09/16/22 1:04 PM) Social History Social History Type Response Tobacco Never tobacco user T obacco Use:. 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 Katlyn Peoples, DO 08/12/22 Non Biological Knee L Device Identifier Serial Number Lot or Batch Number Manufacturing Date Expiration Date Distinct Identification Code MRI Safety Implantable Status Assigning Authority Unknown NA [id number] 802 Unknown 08/07/24 Unknown Unknown Active Unknown Unknown N/A [id number] 2 Unknown 06/10/32 Unknown Unknown Active Unknown Unknown NA [id number] 1 Unknown 04/01/27 Unknown Unknown Active Unknown Unknown N/A [id number] 2 Unknown 12/07/31 Unknown Unknown Active Unknown Unknown N/A [id number] 2 Unknown 12/15/26 Unknown Unknown Active Unknown Patient Care team information Care Team Personnel Name: Sanaz Fang APRN, Position: Physician Member Role: Nurse Practitioner Address: Address: [address] [place] [address] Name: Anabel Peoples APRN Position: Physician Member Role: Nurse Practitioner Address: Address: [address] [place] [address]
--- OUTSIDE RECORDS SUMMARY | 2024-04-25 04:09 | XMS_ITS | Continuity of Care Document ---
Author Name Unknown Organization [facility] Address [address] [place] [id number] Care Team Providers Care Special Education Inclusion Teacher Name Role Phone Mally Vazquez APRN Primary Care Physician Encounter [facility] FIN NBR [id number] Date(s): 12/02/22 - 12/02/[address] [address] Encounter Diagnosis Other specified abnormal findings of blood chemistry(Final) - Encounter for screening for other metabolic disorders(Final) - Discharge Disposition: Home or Self Care Attending Physician: Mary Kate Robin APRN Admitting Physician: Mary Kate Robin APRN Referring Physician: Mary Kate Robin APRN Allergies, Adverse Reactions, Alerts Substance Reaction Severity Status sulfa drugs Rash Hallucinations Unknown Active Flomax Dizziness Unknown Active Assessment and Plan Future Appointments Future Scheduled Tests Laboratory* Basic Metabolic Panel 12/02/22 Immunizations Given and Recorded Vaccine Date Status Refusal Reason influenza virus vaccine, inactivated 1 08/02/22 Re corded SARS-CoV-2 mRNA (tozinameran 12y+) bival 2 08/02/22 Recorded 1Result Comment: RD done at [place] Lot: [id number] exp: 05/08/2023 San[employer]i 2Result Comment: Lot: [id number] Exp: 06/08/23 LD done at [place] Medications Acidophilus Probiotic Blend 1 cap, Oral, Daily, 0 Refill(s) Start Date: 08/11/22 Status: Ordered Albuterol (Eqv-Proventil HFA) 90 mcg/inh inhalation aerosol 1 puffs, Inhale, every 4 hr, PRN as needed for wheezing, Do not exceed 12 inhalations in a 24-hour period., # 1 EA, 0 Refill(s), Pharmacy: [facility] #[id number], 170, cm, 01/03/23 12:19:00 EST, Height/Length Dosing, 96, kg, 11/11/22 12:19:00 EST, Weight... Start Date: 11/25/22 Status: Ordered alendronate 70 mg oral tablet 70 mg = 1 tab, Oral, every week, typically takes on Thursday, # 12 tab, 0 Refill(s), Pharmacy: [facility], 114.09, cm, 08/12/22 16:18:00 EDT, Height/Length Dosing, 165, kg, 08/12/22 16:18:00 EDT, Weight Dosing Start Date: 11/06/22 Status: Ordered Aspirin Enteric Coated 325 mg = 1 tab, Oral, BID, 0 Refill(s) Start Date: 08/21/22 Status: Ordered atorvastatin 10 mg oral tablet 10 mg = 1 tab, Oral, every evening, # 90 tab, 3 Refill(s), Pharmacy: [facility],114.09, cm, 08/12/22 16:18:00 EDT, Height/Length [...] morning, # 90 tab, 3 Refill(s), Pharmacy: [facility],114.09, cm, 08/12/22 16:18:00 EDT, Height/Length Dosing, 165, kg, 08/12/22 16:18:00 EDT, Weight Dosing Start Date: 10/24/22 Stop Date: 10/19/23 Status: Ordered gabapentin 100 mg oral capsule 100 mg = 1 cap, Oral, BID, # 180 cap, 1 Refill(s), Pharmacy: [facility], 114.09,cm, 08/12/22 16:18:00 EDT, Height/Length [...] Daily, # 90 tab, 3 Refill(s), Pharmacy: [facility], 114.09, cm, 08/12/22 16:18:00 EDT, Height/Length Dosing, 165, kg, 08/12/22 16:18:00 EDT, Weight Dosing Start Date: 10/24/22 Stop Date: 10/19/23 Status: Ordered metFORMIN 500 mg oral tablet 500 mg = 1 tab, Oral, every evening, # 90 tab, 3 Refill(s), Pharmacy: [facility], 114.09, cm, 08/12/22 16:18:00 EDT, Height/Length Dosing, 165, kg, 08/12/22 16:18:00 EDT, Weight Dosing Start Date: 10/24/22 Stop Date: 10/19/23 Status: Ordered metoprolol tartrate 25 mg oral tablet 25 mg = 1 tab, Oral, BID, # 180 tab, 3 Refill(s), Pharmacy: [facility], 114.09, cm, 08/12/22 16:18:00 EDT, Height/Length Dosing, 165, kg, 08/12/22 16:18:00 EDT, Weight Dosing Start Date: 10/24/22 Stop Date: 10/19/23 Status: Ordered multivitamin adult, oral tablet 1 tab, Oral, Daily Start Date: 08/11/22 Status: Ordered predniSONE 20 mg oral tablet 20 mg = 1 tab, Oral, Daily, with food or milk, # 5 tab, 0 Refill(s), Pharmacy: [facility] #[id number],170, cm, 11/11/22 12:19:00 EST, Height/Length [...] heart valvuloplasty of aortic valve without replacement 2 2013 Comp leted EGD - Esophagogastroduodenoscopy 05/23/10 Completed Colonoscopy 02/04/00 Completed Bilateral tubal ligation Completed ALEJO BSO - Total abdominal hy sterectomy and bilateral salpingo-oophorectomy 3 Completed 1auto-populated from documented surgical case 2Mitral and Tricuspid 3Due to Fibroids Results Laboratory List Name Date Comprehensive Metabolic Panel (CMP) 12/02 Most recent to oldest [Reference Range]: 1 BUN [8-26 mg/dL] 26 mg/dL (12/02/22 12:03 PM) Glucose Level [74-106 mg/dL] 158 mg/dL *HI* (12/02/22 12:03 PM) Potassium Level [3.5-5.1 mmol/L] 3.8 mmo l/L (12/02/22 12:03 PM) AST [15-41 IntlUnit/L] 22 IntlUnit/L (12/02/22 12:03 PM) ALT [14-54 IntlUnit/L] 20 IntlUnit/L (12/02/22 12:03 PM) Osmolality [275-295 mOsm/kg] 284 mOsm/kg (12/02/22 12:03 PM) Sodium Level [134-143 mmol/L] 138 mmol/L (12/02/22 12:03 PM) Calcium Level [8.9-10.3 mg/dL] 8.8 mg/dL *LOW* (12/02/22 12:03 PM) Albumin Level [3.5-5.0 g/dL] 3.6 g/dL (12/02/22 12:03 PM) Protein Total [6.5-8.1 g/dL] 6.6 g/dL (12/02/22 12:03 PM) Bilirubin Total [0.2-1.2 mg/dL] 1.4 mg/d L *HI* (12/02/22 12:03 PM) Alk Phos [38-130 IntlUnit/L] 61 IntlUnit /L (12/02/22 12:03 PM) CO2 [22-32 mmol/L] 30 mmol/L (12/02/22 12:03 PM) Chloride Level [98-111 mmol/L] 97 mmol/L *LOW* (12/02/22 12:03 PM) A/G Ratio 1.2 *NA* (12/02/22 12:03 PM) BUN/Creat Ratio [8.0-20.0] 23.4 *HI* (12/02/22 12:03 PM) Globulin 3.0 *NA* (12/02/22 12:03 PM) Creatinine Level [0.44-1.00 mg/dL] 1.11 mg/dL *HI* (12/02/22 12:03 PM) Anion Gap [3.0-12.0] 11.0 (12/02/22 12:03 PM) eGFR CKD-EPI [>=60 mL/min/1.73 m2] 51 mL /min/1.73 m2 *LOW* (12/02/22 12:03 PM) Social History Social History Type Response Tobacco Never tobacco user T obacco Use:. 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 Katlyn Peoples, 08/12/22 Non Biological Knee L Device Identifier Serial Number Lot or Batch Number Manufacturing Date Expiration Date Distinct Identification Code MRI Safety Implantable Status Assigning Authority Unknown NA [id number] Unknown 08/07/24 Unknown Unknown Active Unknown Unknown N/A [id number] 2 Unknown 06/10/32 Unknown Unknown Active Unknown Unknown NA [id number] Unknown 04/01/27 Unknown Unknown Active Unknown Unknown N/A [id number] 2 Unknown 12/07/31 Unknown Unknown Active Unknown Unknown N/A [id number] 2 Unknown 12/15/26 Unknown Unknown Active Unknown Patient Care team information Personnel Name: Mally Vazquez APRN Address: Address: [address] [place] [id number]
--- OUTSIDE RECORDS SUMMARY | 2024-04-25 04:09 | XMS_ITS | Continuity of Care Document ---
Author Name Unknown Organization [facility] Address [address] [place] [address] Care Team Providers Care Auto Servicer Name Role Phone Mally Vazquez APRN Primary Care Physician [phone] Encounter [facility] FIN NBR [id number] Date(s): 09/08/23 - 09/08/23 [facility] [address] [place] [address]- [place] Discharge Disposition: Home Allergies, [...] 08/02/22 Recorded 1Result Comment: RD done at [place] Lot: [id number] exp: 05/08/2023 Sanofi 2Result Comment: Lot: [id number] Exp: 06/08/23 LD done at [facility] Medications Albuterol (Eqv-Proventil HFA) 90 mcg/inh inhalation aerosol 1 puffs, Inhale, every 4 hr, PRN as needed for wheezing, Do not exceed 12 inhalations in a 24-hour period., # 1 EA, 0 Refill(s), Pharmacy: [facility] #[id number], 170, cm, 11/11/22 12:19:00 EST, [...] taking., # 12 tab, 1 Refill(s), Pharmacy: [facility], 170, cm, 11/11/22 12:19:00 EST, [...] evening, # 90 tab, 3 Refill(s), Pharmacy: [facility],114.09, cm, 08/12/22 16:18:00 EDT, Height/Length [...] morning, # 90 tab, 3 Refill(s), Pharmacy: [facility],114.09, cm, 08/12/22 16:18:00 EDT, Height/Length Dosing, 165, kg, 08/12/22 16:18:00 EDT, Weight Dosing Start Date: 10/24/22 Stop Date: 10/19/23 Status: Ordered gabapentin 100 mg oral capsule 100 mg = 1 cap, Oral, Daily, # 90 cap, 0 Refill(s), Pharmacy: [facility], 170, cm, 11/11/22 12:19:00 EST, Height/Length Dosing, 96, kg, 11/11/22 12:19:00 EST, Weight Dosing Start Date: 06/05/23 Stop Date: 09/03/23 Status: Ordered Jardiance 10 mg oral tablet 10 mg = 1 tab, Oral, every morning, # 30 tab, 0 Refill(s), Pharmacy: [facility] #[id number], 170, cm, 11/11/22 12:19:00 EST, Height/Length Dosing, 96, kg, 11/11/22 12:19:00 EST, Weight Dosing Start Date: 08/28/23 Status: Ordered levothyroxine 137 mcg (0.137 mg) oral tablet See Instructions, TAKE 1 TABLET DAILY IN THE MORNING ON AN EMPTY STOMACH, # 90 tab, 3 Refill(s), Pharmacy: [facility], 170, cm, 11/11/22 12:19:00 EST, Height/Length Dosing, 96, kg,11/11/22 12:19:00 EST, Weight Dosing Start Date: 04/14/23 Status: Ordered losartan 100 mg oral tablet 100 mg = 1 tab, Oral, Daily, # 90 tab, 3 Refill(s), Pharmacy: [facility], 114.09, cm, 08/12/22 16:18:00 EDT, Height/Length Dosing, 165, kg, 08/12/22 16:18:00 EDT, Weight Dosing Start Date: 10/24/22 Stop Date: 10/19/23 Status: Ordered metoprolol tartrate 25 mg oral tablet 25 mg = 1 tab, Oral, BID, # 180 tab, 3 Refill(s), Pharmacy: [facility], 170, cm,11/11/22 12:19:00 EST, Height/Length Dosing, 96, kg, 11/11/22 12:19:00 EST, Weight Dosing Start Date: 08/25/23 Stop Date: 08/19/24 Status: Ordered multivitamin adult, oral tablet 1 tab, Oral, Daily Start Date: 08/11/22 Status: Ordered Shoes4you oral capsule 8 EA, TAKE 1 CAPSULE [...] Safety Implantable Status Assigning Authority Unknown NA [id number] Unknown 08/07/24 Unknown Unknown Active Unknown Unknown N/A [id number] 2 Unknown 06/10/32 Unknown Unknown Active Unknown Unknown NA [id number] 1 Unknown 04/01/27 Unknown Unknown Active Unknown Unknown N/A [id number] 2 Unknown 12/07/31 Unknown Unknown Active Unknown Unknown N/A [id number] 2 Unknown 12/15/26 Unknown Unknown Active Unknown Patient Care team information Care Team Personnel Name: Sanaz Fang APRN, Position: Physician Member Role: Nurse Practitioner Address: Address: [address] [place] [address] Name: Anabel Hallman APRN Position: Physician Member Role: Nurse Practitioner Address: Address: [address] [place] [address] Name: Mally Vazquez APRN Position: Physician Member Role: Primary Care Physician Address: Address: [address] [place] [address] Care Team Related Persons Name: LAURA LEON
--- OUTSIDE RECORDS SUMMARY | 2024-04-25 04:09 | XMS_ITS | Continuity of Care Document ---
Author Name Unknown Organization [facility] Address [address] [place] [id number] Care Team Providers Care Executive Consultant Name Role Phone Mally Vazquez APRN Primary Care Physician [phone] Encounter [facility] NBR [id number] Date(s): 09/24/23 - 09/24/[address] [address]- [place] Encounter Diagnosis Choking episode(Discharge Diagnosis) - 09/24/23 Other specified symptoms and signs involving the circulatory and respiratory systems(Final) - Discharge Disposition: Home or Self Care Attending Physician: Miguelangel Bobo MD Admitting Physician: Miguelangel Bobo MD Allergies, Adverse Reactions, Alerts Substance Reaction Severity Status narcotic analgesics Unknown Active sulfa drugs Rash Hallucinations Unknown Active Flomax Dizziness Unknown Active Assessment and Plan Future Appointments Future Scheduled Tests Laboratory* Comprehensive Metabolic Panel 09/18/23 Radiology* US Kidney Bladder 08/31/23 Functional Status 09/24/23 Family Member Travel History No recent t ravel Recent Travel History No recent travel Other exposure to Infectious Disease Non e Immunizations Given and Recorded Vaccine Date Status Refusal Reason influenza virus vaccine, inactivated 1 08/02/22 Re corded SARS-CoV-2 mRNA (tozinameran 12y+) bival 2 08/02/22 Recorded 1Result Comment: RD done at [facility] Lot: [id number] exp: 05/08/2023 [employer] 2Result Comment: Lot: [id number] Exp: 06/08/23 LD done at [facility] Medications Albuterol (Eqv-Proventil HFA) 90 mcg/inh inhalation aerosol 1 puffs, Inhale, every 4 hr, PRN as needed for wheezing, Do not exceed 12 inhalations in a 24-hour period., # 1 EA, 0 Refill(s), Pharmacy: [id number], 170, cm, 11/11/22 12:19:00 EST, [...] taking., # 12 tab, 1 Refill(s), Pharmacy: [facility], 170, cm, 11/11/22 12:19:00 EST, [...] evening, # 90 tab, 3 Refill(s), Pharmacy: [facility],114.09, cm, 08/12/22 16:18:00 EDT, Height/Length [...] morning, # 90 tab, 3 Refill(s), Pharmacy: [facility],114.09, cm, 08/12/22 16:18:00 EDT, Height/Length Dosing, 165, kg, 08/12/22 16:18:00 EDT, Weight Dosing Start Date: 10/24/22 Stop Date: 10/19/23 Status: Ordered gabapentin 100 mg oral capsule 100 mg = 1 cap, Oral, Daily, # 90 cap, 0 Refill(s), Pharmacy: [facility], 170, cm, 11/11/22 12:19:00 EST, Height/Length Dosing, 96, kg, 11/11/22 12:19:00 EST, Weight Dosing Start Date: 06/05/23 Stop Date: 09/03/23 Status: Ordered Jardiance 10 mg oral tablet 1 tab, Oral, every morning, # 30 tab, 0 Refill(s), Pharmacy: [id number], 167.64, cm, 09/16/23 12:38:00 EST, Height, 99.79, kg, 09/16/23 12:45:00 EST, Weight Dosing Start Date: 09/22/23 Status: Ordered levothyroxine 137 mcg (0.137 mg) oral tablet See Instructions, TAKE 1 TABLET DAILY IN THE MORNING ON AN EMPTY STOMACH, # 90 tab, 3 Refill(s), Pharmacy: [facility], 170, cm, 11/11/22 12:19:00 EST, Height/Length Dosing, 96, kg,11/11/22 12:19:00 EST, Weight Dosing Start Date: 04/14/23 Status: Ordered losartan 100 mg oral tablet 100 mg = 1 tab, Oral, Daily, # 90 tab, 3 Refill(s), Pharmacy: [facility], 114.09, cm, 08/12/22 16:18:00 EDT, Height/Length Dosing, 165, kg, 08/12/22 16:18:00 EDT, Weight Dosing Start Date: 10/24/22 Stop Date: 10/19/23 Status: Ordered metoprolol tartrate 25 mg oral tablet 25 mg = 1 tab, Oral, BID, # 180 tab, 3 Refill(s), Pharmacy: [facility], 170, cm,11/11/22 12:19:00 EST, Height/Length Dosing, 96, kg, 11/11/22 12:19:00 EST, Weight Dosing Start Date: 08/25/23 Stop Date: 08/19/24 Status: Ordered multivitamin adult, oral tablet 1 tab, Oral, Daily Start Date: 08/11/22 Status: Ordered Sequitur Labs oral capsule 8 EA, TAKE 1 CAPSULE BY MOUTH TWICE DAILY, 0 Refill(s) Start Date: 04/22/23 Status: Ordered Mental Status 09/24/23 Eye Opening Response Chichi Spontaneous ly Best Verbal Response Yolo Oriented Best Motor Response Yolo Obeys comman ds Chichi Coma Score 15 [...] Exam Date Time Procedure Performing Provider Status 09/24/23 8:04 PM XR Chest 2 Views Anjali Mortensen; Giselle th (Verified) Notes: (XR Chest 2 Views) Reason For Exam: s/p choking 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 Views: 2 views. COMPARISON: CR XR CHEST, 2 VIEWS 11/25/2022 12:06 PM FINDINGS: Lungs: Unremarkable. No consolidation. Pleural spaces: Unremarkable. No pleural effusion. No pneumothorax. Heart/Mediastinum: Cardiac valvuloplasty are again noted. No cardiomegaly. Bones/joints: Post sternotomy changes again noted. IMPRESSION: No acute findings. THIS DOCUMENT HAS BEEN ELECTRONICALLY SIGNED BY JADIEL ARRIAGA MD on 09/24/2023 08:35 PM Final Signed by: Jadiel Arriaga MD Signed (Electronic Signature): 09/24/2023 8:35 pm Vital Signs Most recent to oldest [Reference Range]: 1 Temperature Temporal Artery [36-38 Deg C ] 36.8 Deg C (09/24/23 7:35 PM) Peripheral Pulse Rate [60-100 bpm] 79 bp m (09/24/23 7:35 PM) Respiratory Rate [12-24 br/min] 16 br/mi n (09/24/23 7:35 PM) Blood Pressure [90-140/60-90 mmHg] 130/6 2mmHg (09/24/23 7:35 PM) Mean Arterial Pressure, Cuff [70-110 mmH g] 85 mmHg (09/24/23 7:35 PM) Weight Dosing 102.20 kg (09/24/23 7:47 PM) Weight Estimated 102.20 kg (09/24/23 7:35 PM) Height 165.000 cm (09/24/23 7:47 PM) Height/Length Estimated 165.000 cm (09/24/23 7:35 PM) Social History Social History Type Response Tobacco Never tobacco user T obacco Use:. 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 aKtlyn Hallman, DO 08/12/22 Non Biological Knee L Device Identifier Serial Number Lot or Batch Number Manufacturing Date Expiration Date Distinct Identification Code MRI Safety Implantable Status Assigning Authority Unknown NA [id number] Unknown 08/07/24 Unknown Unknown Active Unknown Unknown N/A [id number] 2 Unknown 06/10/32 Unknown Unknown Active Unknown Unknown NA [id number] Unknown 04/01/27 Unknown Unknown Active Unknown Unknown N/A [id number] 2 Unknown 12/07/31 Unknown Unknown Active Unknown Unknown N/A [id number] 2 Unknown 12/15/26 Unknown Unknown Active Unknown Hospital Discharge Instructions Patient Education 09/24/2023 19:18:47 Choking, Adult Choking, Adult Choking occurs when a food or object gets stuck in the throat or windpipe (trachea) and blocks the airway. If the airway is partly blocked, coughing will usually cause the food or object to come out.If the airway is completely blocked, immediate action is needed to make it come out. Obstruction ofthe airway can lead to respiratory failure and even if untreated. The kind of treatment you offer depends on the severity of the choking. A person has a complete airway blockage if he or she: ??? Is holding his or her neck with both hands. This is considered a universal sign of choking. ??? Is unable to breathe. ??? Is making soft or high-pitched sounds while breathing. ??? Is unable to cough or is coughing weakly, ineffectively, or silently. ??? Is unable to cry, speak, or make sounds. ??? Is turning blue or wright. For partial airway blockage If a person has a partial airway blockage and he or she is coughing and is able to speak: ??? Do not interfere. Allow coughing to clear the airway. ??? Do not let him or her try to drink until the food or object comes out. ??? Stay with the person until the food or object comes out. Watch for signs of choking (complete airway blockage). If the person shows signs of complete airway blockage, you should take action to help the person. For complete airway blockage If a person has a complete airway blockage, his or her life is in danger. A complete airway blockage causes breathing to stop. This is a medical emergency that requires fast, appropriate action by anyone who is available. Perform the Heimlich maneuver to save a person who is choking. The Heimlich maneuver, also called abdominal thrusts, uses pressure to force air from the abdomen into the throat to move the blockage. CPR for an unconscious person Do the following if the choking person is not breathing and either collapses or is found on the ground: 1. Shout for help. ??? If someone responds, tell that person to call local emergency services (912 in [place] and look for an automated external defibrillator (AED). ??? If no one responds, begin 2 minutes of CPR. 2. Make sure the person is lying on a firm, flat surface, facing up. Begin CPR, starting with 30 chest compressions and 2 breaths. Every time you open the airway to give rescue breaths, open the person's mouth. If you can see the food or object and it can be easily pulled out, remove it with your fingers. Do not try to remove the food or object if you cannot see it so you do not push it farther into the airway. 3. After 5 cycles or 2 minutes of CPR, call local emergency services (488 in [place] if a call has not already been made. 4. Continue CPR until the person starts breathing or until help arrives. If you are chokin. Call local emergency services (711 in [place] Do not worry about communicating what is happening.Do not hang up the phone. Someone may be sent to help you anyway. 2. Perform the Heimlich maneuver on yourself. To do this, hold a fist against your abdomen and bendover a hard surface, such as a chair. Forcefully push your fist in and up until the food or object comes out. Prevention ??? Chew food thoroughly. ??? Know that older adults are at an increased risk of choking. They should chew smaller bites and cut their food into smaller portions. ??? Avoid talking or laughing while you are chewing and swallowing. To be prepared if choking occurs, take a certified first-aid course to learn how to correctly perform the Heimlich maneuver. Contact a health care provider if: ??? You have trouble swallowing food. ??? You continue to have drooling after choking. ??? You have persistent chest pain after choking. Get help right away if: ??? You have problems breathing after choking stops. ??? You are confused, persistently drowsy, or have lost consciousness at any point. ??? You were given CPR. These symptoms may represent a serious problem that is an emergency. Do not wait to see if the symptoms will go away. Get medical help right away. Call your local emergency services (911 in the [place] Do not drive yourself to the hospital. Summary ??? Choking occurs when a food or object gets stuck in the throat (trachea) and blocks the airway. This prevents breathing and can lead to respiratory arrest and even if untreated. ??? If a person has a partial airway blockage and is able to talk and cough, do not interfere and do not allow the person to drink until the food or object comes out. ??? If a person has a complete airway blockage, perform the Heimlich maneuver. Call local emergencyservices and take the person to a health care provider afterward especially if CPR was done. ??? If the person is unconscious and not breathing, call local emergency services and perform CPR until the person breathes normally or until help arrives. This information is not intended to replace advice given to you by your health care provider. Make sure you discuss any questions you have with your health care provider. Document Revised: 12/19/2020 Document Reviewed: 11/30/2020 Elsevier Patient Education ?? 2022 [employer] 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 ??She states that she was out??eating [place] food at a restaurant,??was eating beef and broccoli andhad an episode of choking where she was unable to breathe. ??She states that??the Heimlich??was performed??and she noted improvement. ??She??states that she??does not recall expelling??a food bolus, she states that she is concerned that she may have aspirated. Review of Systems: see hpi Physical Exam Vitals & Measurements T:??36.8?C ??(Temporal Artery)?? HR:??79??(Peripheral)?? RR:??16?? BP:??130/62?? SpO2:??94%?? HT:??165.000??cm?? WT:??102.20??kg??(Estimated)?? O2 Therapy:??Room air?? General: Well-appearing, no acute distress, alert and oriented x3. Skin: No concerning lesions in examined areas. Head: Normal cephalic without trauma or injury. Neck: Supple, nontender, normal range of motion Eye: Pupils reactive. ??Conjunctiva clear. Sclera nonicteric. ??No swelling, obvious foreign bodies. ??Extraocular movement intact. Cardiovascular: Regular rate and rhythm. ??No murmur, rubs, or gallops. Respiratory: Clear to auscultation bilaterally. ??No wheezes, rales, rhonchi. Medical Decision Making: Patient was evaluated for??concern for aspiration status post??choking??prior to arrival. ??Vital signs were obtained and reviewed, patient is normotensive, nontachycardic and afebrile. ??SPO2 is 94 to 95% on room air. ??Chest x-ray was obtained which is negative for any??acute consolidation or infiltrate,??no acute changes compared to previous??x-ray.?? There does appear to be narrowing of the trachea which is seen on previous x-rays which is not??identified as problematic.?? We did discuss??things will be important moving forward such as monitoring for increased cough or shortness of breath, monitoring for fever or malaise. ??I did suggest that she reach out to her primary care??and have a discussion??over a recheck of chest x-ray next week or just to??monitor and??observe watchful waiting. 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 Orders: Discharge Patient, 09/24/23 20:23:00 EST Patient Education Choking, Adult Medication Reconciliation Unchanged albuterol (Albuterol (Eqv-Proventil HFA) [...] 30 minutes after taking.. Refills: 1. ?? aspirin (aspirin 81 mg oral delayed release tablet)1 tab Oral (given by mouth) every day. ?? atorvastatin (atorvastatin 10 mg oral tablet)1 tab Oral (given by mouth) every evening for 90 Days.Refills: 3. ?? bifidobacterium-lactobacillus (Sequitur Labs oral capsule)8 EA, TAKE 1 CAPSULE BY MOUTH TWICE DAILY. ?? calcium-vitamin D (Calcium 600+D 600 mg-200 intl units oral tablet)28 tab. ?? Durable Medical Equipment for Prescription (Diabetic footwear)Please fit for diabetic shoes.. Refills: 0. ?? empagliflozin (Jardiance 10 mg oral tablet)1 tab Oral (given by mouth) every morning. Refills: 0. ?? famotidine (famotidine 20 mg oral tablet)46 tab. ?? furosemide (furosemide 40 mg oral tablet)1 tab Oral (given by mouth) every morning for 90 Days. Refills: 3. ?? gabapentin (gabapentin 100 mg oral capsule)1 Capsules Oral (given by mouth) every day for 90 Days. Refills: 0. ?? levothyroxine (levothyroxine 137 mcg (0.137 mg) oral tablet)TAKE 1 TABLET DAILY IN THE MORNING ON AN EMPTY STOMACH. Refills: 3. ?? losartan (losartan 100 mg oral tablet)1 tab Oral (given by mouth) every day for 90 Days. Refills: 3. ?? metoprolol (metoprolol tartrate 25 [...] - Total abdominal hysterectomy and bilateral salpingo-oophorectomy Allergies Flomax??(Dizziness) narcotic analgesics sulfa drugs??(Rash, Hallucinations) Social History Alcohol Past Electronic Cigarette/Vaping Electronic Cigarette Use: Never. Employment/School Retired Home/Environment Lives with Alone, Son Josias stays at her house when needed. . Living situation: Home with assistance. Home equipment: Walker. Substance Use Never Tobacco Never tobacco user Tobacco Use:. Family History Breast cancer: Mother and Aunt/Uncle. Cancer: Son. Heart: Mother and Father. Electronically Signed on 09/24/23 08:32 PM Jacey Jaramillo APRN Emergency department Discharge instructions * Jacey Jaramillo APRN: PERFORM Event Display: ED Discharge Information Authored Date: [id number] YVETTE DRAPER :1945 Age:78 years Sex:Female Visit Date:09/24/2023 Primary Care Physician: Mally Vazquez APRN Discharge Instructions We would like to thank you for allowing us to assist you with your healthcare needs. The following includes patient education materials and information regarding your injury/illness. Diagnosis from Today's Visit Choking episode Discharge Vitals Temperature??(Temporal Artery) 98.2 ??F (36.8 ??C) Heart Rate??(Peripheral) 79 Respiratory Rate?? 16 Blood Pressure?? 130/62?? Height?? 64.96 in (165.000 cm) Weight??(Estimated) 225.35 lb (102.20 kg) Allergies Flomax??(Dizziness) narcotic analgesics sulfa drugs??(Rash, Hallucinations) What to Do Next Instructions from Your Care Team I would recommend monitoring yourself any worsening signs or symptoms such as??fever, cough or worsening shortness of breath.?You may want to reach out to your primary care to schedule a??repeat chest x-ray??next week??to assure??that there are no complications from aspiration. Upcoming Scheduled Appointments 2023 12:30 PM EST ?? With: Mally Vazquez APRN Where: [facility] Primary [facility] [address] [place] [address]- Status: Confirmed You were treated today on an emergency basis; it may be nielsen to contact your primary care provider to notify them of your visit today. You may have been referred to your regular doctor or a specialist, please follow up as instructed. If your condition worsens or you can't get in to see the doctor, contact the Emergency Department. Medications What How Much When Why Instructions Next Dose Unchanged albuterol (Albuterol (Eqv-Proventil HFA) 90mcg/ inh inhalation aerosol) 1 Puffs Inhale (breathe [...] least 30 minutes after taking. ?? Unchanged aspirin (aspirin 81 mg oral delayed release tablet) 1 tab Oral (given by mouth) Every day Unchanged atorvastatin (atorvastatin 10 mg oral tablet) 1 tab Oral (given by mouth) Every evening Duration: 90 Days Unchanged bifidobacterium-lactobacillus (Sequ[employer] oral capsule) 8 EA, TAKE 1 CAPSULE BY MOUTH TWICE DAILY ?? Unchanged calcium-vitamin D (Calcium 600+D 600 mg-200 intl units oral tablet) 28 tab ?? Unchanged Durable Medical Equipment for Prescription (Diabetic footwear) See instructions Diabetes mellitus type 2 Please fit for diabetic shoes. ?? Unchanged empagliflozin (Jardiance 10 mg oral tablet) 1 tab Oral (given by mouth) Every morning Unchanged famotidine (famotidine 20 mg oral tablet) 46 tab ?? Unchanged furosemide (furosemide 40 mg oral tablet) 1 tab Oral (given by mouth) Every morning Duration: 90 Days Unchanged gabapentin (gabapentin 100 mg oral capsule) 1 Capsules Oral (given by mouth) Every day Duration: 90 Days Unchanged levothyroxine (levothyroxine 137 mcg (0.137 mg) oral tablet) See instructions TAKE 1 TABLET DAILY IN THE MORNING ON AN EMPTY STOMACH ?? Unchanged losartan (losartan 100 mg oral tablet) 1 tab Oral (given by mouth) Every day Duration: 90 Days Unchanged metoprolol (metoprolol tartrate 25 mg oral tablet) 1 tab Oral (given by mouth) 2 times a day Duration: 90 Days Unchanged multivitamin (multivitamin adult, oral tablet) 1 tab Oral (given by mouth) Every day Unchanged ubiquinone (Coenzyme Q10 100 mg oral capsule) 1 Capsules Oral (given by mouth) Every day Education Materials Choking, Adult Choking occurs when a food or object gets stuck in the throat or windpipe (trachea) and blocks the airway. If the airway is partly blocked, coughing will usually cause the food or object to come out.If the airway is completely blocked, immediate action is needed to make it come out. Obstruction ofthe airway can lead to respiratory failure and even if untreated. The kind of treatment you offer depends on the severity of the choking. A person has a complete airway blockage if he or she: ? Is holding his or her neck with both hands. This is considered a universal sign of choking. ? Is unable to breathe. ? Is making soft or high-pitched sounds while breathing. ? Is unable to cough or is coughing weakly, ineffectively, or silently. ? Is unable to cry, speak, or make sounds. ? Is turning blue or wright. For partial airway blockage If a person has a partial airway blockage and he or she is coughing and is able to speak: ? Do not interfere. Allow coughing to clear the airway. ? Do not let him or her try to drink until the food or object comes out. ? Stay with the person until the food or object comes out. Watch for signs of choking (complete airway blockage). If the person shows signs of complete airway blockage, you should take action to help the person. For complete airway blockage If a person has a complete airway blockage, his or her life is in danger. A complete airway blockage causes breathing to stop. This is a medical emergency that requires fast, appropriate action by anyone who is available. Perform the Heimlich maneuver to save a person who is choking. The Heimlich maneuver, also called abdominal thrusts, uses pressure to force air from the abdomen into the throat to move the blockage. CPR for an unconscious person Do the following if the choking person is not breathing and either collapses or is found on the ground: 1.?? Shout for help. ? If someone responds, tell that person to call local emergency services (911 in [place] and look for an automated external defibrillator (AED). ? If no one responds, begin 2 minutes of CPR. 2.?? Make sure the person is lying on a firm, flat surface, facing up. Begin CPR, starting with 30 chestcompressions and 2 breaths. Every time you open the airway to give rescue breaths, open the person's mouth. If you can see the food or object and it can be easily pulled out, remove it with your fingers. Do not try to remove the food or object if you cannot see it so you do not push it farther intothe airway. 3.?? After 5 cycles or 2 minutes of CPR, call local emergency services (911 in [place] if a call has not already been made. 4.?? Continue CPR until the person starts breathing or until help arrives. If you are chokin.?? Call local emergency services (911 in [place] Do not worry about communicating what is happening. Donot hang up the phone. Someone may be sent to help you anyway. 2.?? Perform the Heimlich maneuver on yourself. To do this, hold a fist against your abdomen and bend over a hard surface, such as a chair. Forcefully push your fist in and up until the food or object comes out. Prevention ? Chew food thoroughly. ? Know that older adults are at an increased risk of choking. They should chew smaller bites and cut their food into smaller portions. ? Avoid talking or laughing while you are chewing and swallowing. To be prepared if choking occurs, take a certified first-aid course to learn how to correctly perform the Heimlich maneuver. Contact a health care provider if: ? You have trouble swallowing food. ? You continue to have drooling after choking. ? You have persistent chest pain after choking. Get help right away if: ? You have problems breathing after choking stops. ? You are confused, persistently drowsy, or have lost consciousness at any point. ? You were given CPR. These symptoms may represent a serious problem that is an emergency. Do not wait to see if the symptoms will go away. Get medical help right away. Call your local emergency services (911 in the [place] Do not drive yourself to the hospital. Summary ? Choking occurs when a food or object gets stuck in the throat (trachea) and blocks the airway. Thisprevents breathing and can lead to respiratory arrest and even if untreated. ? If a person has a partial airway blockage and is able to talk and cough, do not interfere and do not allow the person to drink until the food or object comes out. ? If a person has a complete airway blockage, perform the Heimlich maneuver. Call local emergency services and take the person to a health care provider afterward especially if CPR was done. ? If the person is unconscious and not breathing, call local emergency services and perform CPR untilthe person breathes normally or until help arrives. This information is not intended to replace advice given to you by your health care provider. Make sure you discuss any questions you have with your health care provider. Document Revised: 12/19/2020 Document Reviewed: 11/30/2020 [email or web address] Patient Education ?? 2022 [employer] Patient/Team Leader Surgery Signature Patient Name:YVETTE DRAPER I have received this information and my questions have been answered. Patient/Team Leader Surgery Name: Patient/Team Leader Surgery Signature: Relationship to Patient: Witness Name/Signature: Date: Electronically Signed on: 09/24/2023 20:21 ESTSigned by:JOHNIE Patient Care team information Care Team Personnel Name: Sanaz Fang APRN, Position: Physician Member Role: Nurse Practitioner Address: Address: [address] [place] [address] Name: Anabel Hallman APRN Position: Physician Member Role: Nurse Practitioner Address: Address: [address] [place] [address] Name: Mally Vazquez APRN Position: Physician Member Role: Primary Care Physician Address: Address: [address] [place] [address] [place] Name: Jacey Jaramillo APRN Position: Physician Member Role: Physician Address: Address: [address] [place] [address] Name: Kishore Priest RN Position: Nurse Member Role: Registered Nurse Care Team Related Persons Name: LAURA LEON
--- OUTSIDE RECORDS SUMMARY | 2024-04-25 04:09 | XMS_ITS | Continuity of Care Document ---
Author Name Unknown Organization [facility] Address [address] [place] [address] Care Team Providers Care Signals Collection Technician Name Role Phone Mally Vazquez APRN Primary Care Physician Encounter LTTL_CO FIN NBR [id number] Date(s): 04/03/23 - 04/03/[address] [address]- [place] Discharge Disposition: Home or [...] 08/02/22 Recorded 1Result Comment: RD done at [facility] Lot: [id number] exp: 05/08/2023 [employer] 2Result Comment: Lot: [id number] Exp: 06/08/23 LD done at [facility] Medications Acidophilus Probiotic Blend 1 cap, Oral, Daily, 0 Refill(s) Start Date: 08/11/22 Status: Ordered Albuterol (Eqv-Proventil HFA) 90 mcg/inh inhalation aerosol 1 puffs, Inhale, every 4 hr, PRN as needed for wheezing, Do not exceed 12 inhalations in a 24-hour period., # 1 EA, 0 Refill(s), Pharmacy: [id number], 170, cm, 11/11/22 12:19:00 EST, [...] taking., # 12 tab, 1 Refill(s), Pharmacy: [facility]... Start Date: 02/03/23 Stop Date: 07/21/23 Status: Ordered aspirin 81 mg oral delayed release tablet 81 mg = 1 tab, Oral, Daily, # 30 tab, 0 Refill(s) Start Date: 01/05/23 Status: Ordered atorvastatin 10 mg oral tablet 10 mg = 1 tab, Oral, every evening, # 90 tab, 3 Refill(s), Pharmacy: [facility],114.09, cm, 08/12/22 16:18:00 EDT, Height/Length [...] 03/24/2023, # 90 tab, 0 Refill(s), Pharmacy: [facility] #[id number], 170, cm, 11/11/22 12:19:00 EST, [...] morning, # 90 tab, 3 Refill(s), Pharmacy: [facility],114.09, cm, 08/12/22 16:18:00 EDT, Height/Length [...] Daily, # 90 tab, 3 Refill(s), Pharmacy: [facility], 114.09, cm, 08/12/22 16:18:00 EDT, Height/Length Dosing, 165, kg, 08/12/22 16:18:00 EDT, Weight Dosing Start Date: 10/24/22 Stop Date: 10/19/23 Status: Ordered metFORMIN 500 mg oral tablet 500 mg = 1 tab, Oral, every evening, # 90 tab, 3 Refill(s), Pharmacy: [facility], 114.09, cm, 08/12/22 16:18:00 EDT, Height/Length Dosing, 165, kg, 08/12/22 16:18:00 EDT, Weight Dosing Start Date: 10/24/22 Stop Date: 10/19/23 Status: Ordered metoprolol tartrate 25 mg oral tablet 25 mg = 1 tab, Oral, BID, # 180 tab, 3 Refill(s), Pharmacy: [facility], 114.09, cm, 08/12/22 16:18:00 EDT, [...] Exam Date Time Procedure Performing Provider Status 04/03/23 1:42 PM MG Mammo Screening Bilateral DomainUse r, Generated; Auth (Verified) Notes: (MG Mammo Screening Bilateral) Reason For Exam: annual screening MG Mammo Screening Bilateral EXAM DESCRIPTION: MG Mammo Screening Bilateral 04/03/2023 INDICATION: ANNUAL SCREENING COMPARISON: 12/12/2021 and 11/27/2020 BREAST DENSITY: There are scattered areas of fibroglandular density. FINDINGS: MLO and CC views were performed with digital breast tomosynthesis. Images were reviewed using computer aided detection. Grouping of small calcifications in the left mid breast at intermediate depth approximately 4 cm from the nipple as an interval change from prior studies. Spot magnification left CC and mL views are recommended for further evaluation. Otherwise, no asymmetry, architectural distortion or suspicious grouping of calcifications to suggest malignancy in either breast. Additional scattered benign-type calcifications are noted bilaterally. ASSESSMENT: Incomplete: Needs additional imaging evaluation and/or prior mammograms for comparison. BI-RADS category 0. RECOMMENDATION: 1: Mammography spot magnification left JOB #: [id number] Final Signed by: Kishore Parra MD Signed (Electronic Signature): 04/03/2023 1:59 pm Social History Social History Type Response Tobacco Never tobacco user T obacco Use:. 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 Katlyn Richelle, DO 08/12/22 Non Biological Knee L Device Identifier Serial Number Lot or Batch Number Manufacturing Date Expiration Date Distinct Identification Code MRI Safety Implantable Status Assigning Authority Unknown NA [id number] Unknown 08/07/24 Unknown Unknown Active Unknown Unknown N/A [id number] 2 Unknown 06/10/32 Unknown Unknown Active Unknown Unknown NA [id number] 1 Unknown 04/01/27 Unknown Unknown Active Unknown Unknown N/A [id number] 2 Unknown 12/07/31 Unknown Unknown Active Unknown Unknown N/A [id number] 2 Unknown 12/15/26 Unknown Unknown Active Unknown MG Breast - bilateral Screening * Kishore Parra MD: VERIFY, VERIFY Event Display: Report EXAM DESCRIPTION: MG Mammo Screening Bilateral 04/03/2023 INDICATION: ANNUAL SCREENING COMPARISON: 12/12/2021 and 11/27/2020 BREAST DENSITY: There are scattered areas of fibroglandular density. FINDINGS: MLO and CC views were performed with digital breast tomosynthesis. Images were reviewed using computer aided detection. Grouping of small calcifications in the left mid breast at intermediate depth approximately 4 cm from the nipple as an interval change from prior studies. Spot magnification left CC and mL views are recommended for further evaluation. Otherwise, no asymmetry, architectural distortion or suspicious grouping of calcifications to suggest malignancy in either breast. Additional scattered benign-type calcifications are noted bilaterally. ASSESSMENT: Incomplete: Needs additional imaging evaluation and/or prior mammograms for comparison. BI-RADS category 0. RECOMMENDATION: 1: Mammography spot magnification left JOB #: [id number] Final Signed by: Kishore Parra MD Signed (Electronic Signature): 04/03/2023 1:59 pm Patient Care team information Care Team Personnel Name: Sanaz Fang APRN, Position: Physician Member Role: Nurse Practitioner Address: Address: [address] [place] [address] Name: Anabel Hallman APRN Position: Physician Member Role: Nurse Practitioner Address: Address: [address] [place] [address] Name: Mally Vazquez APRN Position: Physician Member Role: Primary Care Physician Address: Address: [address] [place] [address] Care Team Related Persons Name: LAURA LEON Address: Home
--- OUTSIDE RECORDS SUMMARY | 2024-04-25 04:09 | XMS_ITS | Continuity of Care Document ---
Author Name Unknown Organization [facility] Address [address] [place] [address] Care Team Providers Care Fisheries Enforcement Officer Name Role Phone Mally Vazquez APRN Primary Care Physician Encounter LTTL_[facility] FIN NBR [id number] Date(s): 10/29/23 - 10/29/[address] [id number]- [place] Encounter Diagnosis Immune thrombocytopenic purpura(Final) - Discharge Disposition: Home or Self Care Attending Physician: CHARY BELL Admitting Physician: CHARY BELL Referring Physician: CHARY BELL Allergies, Adverse Reactions, Alerts Substance Reaction Severity [...] 1Result Comment: RD done at [facility] Lot: [id number] exp: 05/08/2023 San[employer]i 2Result Comment: Lot: [id number] Exp: 06/08/23 LD done at [facility] Medications Albuterol (Eqv-Proventil HFA) 90 mcg/inh inhalation aerosol 1 puffs, Inhale, every 4 hr, PRN as needed for wheezing, Do not exceed 12 inhalations in a 24-hour period., # 1 EA, 0 Refill(s), Pharmacy: [facility] #[id number], 170, cm, 11/11/22 12:19:00 EST, [...] taking., # 12 tab, 1 Refill(s), Pharmacy: [facility], 170, cm, 11/11/22 12:19:00 EST, Height/Length Dosing, 96, kg, 11/11/22 12:19:00 EST, Weight Dosing Start Date: 07/21/23 Stop Date: 01/05/24 Status: Ordered atorvastatin 10 mg oral tablet 10 mg = 1 tab, Oral, every evening, # 90 tab, 3 Refill(s), Pharmacy: [facility],114.09, cm, 08/12/22 16:18:00 EDT, Height/Length [...] morning, # 90 tab, 3 Refill(s), Pharmacy: [facility], 165, cm, 09/24/23 19:47:00 EST, Height, 102.2, kg, 09/24/23 19:47:00 EST, Weight Dosing Start Date: 10/13/23 Status: Ordered gabapentin 100 mg oral capsule 100 mg = 1 cap, Oral, Daily, # 90 cap, 3 Refill(s), Pharmacy: [facility], 165, cm, 09/24/23 19:47:00 EST, Height, 102.2, kg, 09/24/23 19:47:00 EST, Weight Dosing Start Date: 10/13/23 Stop Date: 10/07/24 Status: Ordered Jardiance 10 mg oral tablet 1 tab, Oral, every morning, # 30 tab, 0 Refill(s), Pharmacy: [facility] #[id number], 165, cm, 09/24/2319:47:00 EST, Height, [...] STOMACH, # 90 tab, 3 Refill(s), Pharmacy: [facility], 170, cm, 11/11/22 12:19:00 EST, Height/Length Dosing, 96, kg,11/11/22 12:19:00 EST, Weight Dosing Start Date: 04/14/23 Status: Ordered losartan 100 mg oral tablet 1 tab, Oral, Daily, # 90 tab, 3 Refill(s), Pharmacy: [facility], 165, cm, 09/24/23 19:47:00 EST, Height, 102.2, kg, 09/24/23 19:47:00 EST, Weight Dosing Start Date: 10/01/23 Status: Ordered metoprolol tartrate 25 mg oral tablet 25 mg = 1 tab, Oral, BID, # 180 tab, 3 Refill(s), Pharmacy: [facility], 170, cm,11/11/22 12:19:00 EST, Height/Length Dosing, 96, kg, 11/11/22 12:19:00 EST, Weight Dosing Start Date: 08/25/23 Stop Date: 08/19/24 Status: Ordered multivitamin adult, oral tablet 1 tab, Oral, Daily Start Date: 08/11/22 Status: Ordered [employer] oral capsule 8 EA, TAKE 1 CAPSULE BY MOUTH TWICE DAILY, 0 Refill(s) Start Date: 04/22/23 Status: Ordered Please provide one touch ultra test strips Please provide one touch ultra test strips, For blood glucose monitoring once daily., Supply, See instructions, # 100 EA, 3 Refill(s), Pharmacy: [facility] Start Date: 10/23/23 Status: Ordered [...] Laboratory List Name Date CBC w/ Diff 10/29/23 Comprehensive Metabolic Panel 10/29/23 Automated Diff 10/29/23 Most recent to oldest [Reference Range]: 1 WBC [4.8-10.8 K/mcL] 8.3 K/mcL (10/29/23 11:24 AM) RBC [4.20-5.40 Million/mcL] 2.84 Million /mcL *LOW* (10/29/23 11:24 AM) Neutro Auto [42.2-75.2 %] 76.4 % *HI* (10/29/23 11:24 AM) Lymph Auto [20.5-51.1 %] 11.6 % *LOW* (10/29/23 11:24 AM) Dale Auto [1.7-9.3 %] 10.5 % *HI* (10/29/23 11:24 AM) Basophil Auto [0.0-0.8 %] 0.5 % (10/29/23 11:24 AM) BUN [7-25 mg/dL] 34 mg/dL *HI* (10/29/23 11:24 AM) Glucose Level [70-109 mg/dL] 121 mg/dL *HI* (10/29/23 11:24 AM) Potassium Level [3.5-5.1 mmol/L] 4.1 mmo l/L (10/29/23 11:24 AM) Baso Absolute [0.0-0.2 K/mcL] 0.0 K/mcL (10/29/2324 AM) MCV [81.0-99.0 fL] 90.8 fL (10/29/2324 AM) AST [13-39 IntlUnit/L] 19 IntlUnit/L (10/29/2324 AM) ALT [7-52 IntlUnit/L] 15 IntlUnit/L (10/29/2324 AM) MCHC [32.0-37.0 g/dL] 33.2 g/dL (10/29/23 AM) Osmolality [275-295 mOsm/kg] 284 mOsm/kg (10/29/23 AM) Sodium Level [136-145 mmol/L] 138 mmol/L (10/29/23 AM) Lymph Absolute [1.2-3.4 K/mcL] 1.0 K/mcL *LOW* (10/29/23 AM) Hct [37.0-47.0 %] 25.8 % *LOW* (10/29/23 AM) Calcium Level [8.6-10.3 mg/dL] 8.9 mg/dL (10/29/23 AM) Dale Absolute [0.1-0.6 K/mcL] 0.9 K/mcL *HI* (10/29/23 AM) Albumin Level [3.5-5.7 g/dL] 3.6 g/dL (10/29/2324 AM) Protein Total [6.4-8.9 g/dL] 6.7 g/dL (10/29/23 11:24 AM) MCH [27.0-31.0 pg] 30.1 pg (10/29/23 AM) Neutro Absolute [1.4-6.5 K/mcL] 6.4 K/mc L (10/29/23:24 AM) Bilirubin Total [0.3-1.0 mg/dL] 0.8 mg/d L (10/29/2324 AM) Hgb [12.0-16.0 g/dL] 8.6 g/dL *LOW* (10/29/23 11:24 AM) Alk Phos [34-104 IntlUnit/L] 50 IntlUnit /L (10/29/23 11:24 AM) MPV [7.4-10.4 fL] 9.1 fL (10/29/23 11:24 AM) Platelets [130-400 K/mcL] 224 K/mcL (10/29/23 11:24 AM) CO2 [21-31 mmol/L] 27 mmol/L (10/29/23 11:24 AM) Eos Absolute [0.0-0.2 K/mcL] 0.1 K/mcL (10/29/23 11:24 AM) Chloride Level [98-107 mmol/L] 103 mmol/ L (10/29/23 11:24 AM) RDW-CV [11.5-14.5 %] 14.9 % *HI* (10/29/23 11:24 AM) A/G Ratio [1.0-2.5 g/dL] 1.2 g/dL (10/29/23 11:24 AM) BUN/Creat Ratio [8.0-20.0] 22.7 *HI* (10/29/23 11:24 AM) Globulin [2.3-3.5 g/dL] 3.1 g/dL (10/29/23 11:24 AM) Creatinine Level [0.60-1.20 mg/dL] 1.50 mg/dL *HI* (10/29/23 11:24 AM) Anion Gap [3.0-12.0] 8.0 (10/29/23 11:24 AM) Eos, Auto [0.00-3.00 %] 1.00 % (10/29/23 11:24 AM) eGFR CKD-EPI [>=60 mL/min/1.73 m2] 35 mL /min/1.73 m2 *LOW* (10/29/23 11:24 AM) Social History Social History Type Response Tobacco Never tobacco user T obacco Use:. 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 Katlyn Hallman DO 08/12/22 Non Biological Knee L Device Identifier Serial Number Lot or Batch Number Manufacturing Date Expiration Date Distinct Identification Code MRI Safety Implantable Status Assigning Authority Unknown NA [id number] Unknown 08/07/24 Unknown Unknown Active Unknown Unknown N/A [id number] 2 Unknown 06/10/32 Unknown Unknown Active Unknown Unknown NA [id number] Unknown 04/01/27 Unknown Unknown Active Unknown Unknown N/A [id number] 2 Unknown 12/07/31 Unknown Unknown Active Unknown Unknown N/A [id number] 2 Unknown 12/15/26 Unknown Unknown Active Unknown Patient Care team information Care Team Personnel Name: Sanaz Fang APRN, Position: Physician Member Role: Nurse Practitioner Address: Address: [address] [place] [address] Name: Anabel Hallman APRN Position: Physician Member Role: Nurse Practitioner Address: Address: [address] [place] [address] Name: Mally Vazquez APRN Position: Physician Member Role: Primary Care Physician Address: Address: [address] [place] [address] [place] Care Team Related Persons Name: LAURA LEON
--- OUTSIDE RECORDS SUMMARY | 2024-04-25 04:09 | XMS_ITS | Continuity of Care Document ---
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) - 07/01/23 Discharge Disposition: Home or Self Care Attending Physician: Mally Vazquez APRN Allergies, Adverse Reactions, Alerts Substance Reaction Severity Status narcotic analgesics Unknown Active sulfa drugs Rash Hallucinations Unknown Active Flomax Dizziness Unknown Active Assessment and Plan Future Appointments Future Scheduled Tests Laboratory* Basic Metabolic Panel 07/01/23 * Hgb A1c 07/01/23 Functional Status 07/01/23 Other exposure to Infectious Disease Non e Immunizations Given and Recorded Vaccine Date Status Refusal Reason influenza virus vaccine, inactivated 1 08/02/22 Re corded SARS-CoV-2 mRNA (tozinameran 12y+) bival 2 08/02/22 Recorded 1Result Comment: RD done at [facility] Lot: [id number] exp: 05/08/2023 [employer] 2Result Comment: Lot: [id number] Exp: 06/08/23 LD done at [facility] Medications Albuterol (Eqv-Proventil HFA) 90 mcg/inh inhalation aerosol 1 puffs, Inhale, every 4 hr, PRN as needed for wheezing, Do not exceed 12 inhalations in a 24-hour period., # 1 EA, 0 Refill(s), Pharmacy: [id number], 170, cm, 11/11/22 12:19:00 EST, [...] taking., # 12 tab, 1 Refill(s), Pharmacy: [facility], 170, cm, 11/11/22 12:19:00 EST, [...] evening, # 90 tab, 3 Refill(s), Pharmacy: [facility],114.09, cm, 08/12/22 16:18:00 EDT, Height/Length [...] morning, # 90 tab, 3 Refill(s), Pharmacy: [facility],114.09, cm, 08/12/22 16:18:00 EDT, Height/Length Dosing, 165, kg, 08/12/22 16:18:00 EDT, Weight Dosing Start Date: 10/24/22 Stop Date: 10/19/23 Status: Ordered gabapentin 100 mg oral capsule 100 mg = 1 cap, Oral, Daily, # 90 cap, 0 Refill(s), Pharmacy: [facility], 170, cm, 11/11/22 12:19:00 EST, Height/Length Dosing, 96, kg, 11/11/22 12:19:00 EST, Weight Dosing Start Date: 06/05/23 Stop Date: 09/03/23 Status: Ordered levothyroxine 137 mcg (0.137 mg) oral tablet See Instructions, TAKE 1 TABLET DAILY IN THE MORNING ON AN EMPTY STOMACH, # 90 tab, 3 Refill(s), Pharmacy: [facility], 170, cm, 11/11/22 12:19:00 EST, Height/Length Dosing, 96, kg,11/11/22 12:19:00 EST, Weight Dosing Start Date: 04/14/23 Status: Ordered losartan 100 mg oral tablet 100 mg = 1 tab, Oral, Daily, # 90 tab, 3 Refill(s), Pharmacy: [facility], 114.09, cm, 08/12/22 16:18:00 EDT, Height/Length Dosing, 165, kg, 08/12/22 16:18:00 EDT, Weight Dosing Start Date: 10/24/22 Stop Date: 10/19/23 Status: Ordered metFORMIN 500 mg oral tablet 500 mg = 1 tab, Oral, every evening, # 90 tab, 3 Refill(s), Pharmacy: [facility], 114.09, cm, 08/12/22 16:18:00 EDT, Height/Length Dosing, 165, kg, 08/12/22 16:18:00 EDT, Weight Dosing Start Date: 10/24/22 Stop Date: 10/19/23 Status: Ordered metoprolol tartrate 25 mg oral tablet 25 mg = 1 tab, Oral, BID, # 180 tab, 3 Refill(s), Pharmacy: [facility], 114.09, cm, 08/12/22 16:18:00 EDT, Height/Length Dosing, 165, kg, 08/12/22 16:18:00 EDT, Weight Dosing Start Date: 10/24/22 Stop Date: 10/19/23 Status: Ordered multivitamin adult, oral tablet 1 tab, Oral, Daily Start Date: 08/11/22 Status: Ordered [employer] [facility] oral capsule 8 EA, TAKE 1 CAPSULE [...] Range]: 1 Peripheral Pulse Rate [60-100 bpm] 96 bp m (07/01/23 10:57 AM) Blood Pressure [90-140/60-90 mmHg] 104/6 0mmHg (07/01/23 10:57 AM) [place] Body Weight Calculated 56.991 kg (07/01/23 10:57 AM) Height 165.09 cm (07/01/23 10:57 AM) Height/Length Measured (inches) 65 inch (07/01/23 10:57 AM) Social History Social History Type Response Tobacco Never tobacco user T obacco Use:. 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 Katlyn Hallman, 08/12/22 Non Biological Knee L Device Identifier Serial Number Lot or Batch Number Manufacturing Date Expiration Date Distinct Identification Code MRI Safety Implantable Status Assigning Authority Unknown NA [id number] Unknown 08/07/24 Unknown Unknown Active Unknown Unknown N/A [id number] Unknown 06/10/32 Unknown Unknown Active Unknown Unknown NA [id number] Unknown 04/01/27 Unknown Unknown Active Unknown Unknown N/A [id number] 2 Unknown 12/07/31 Unknown Unknown Active Unknown Unknown N/A [id number] 2 Unknown 12/15/26 Unknown Unknown Active Unknown Hospital Discharge Instructions Follow Up Care 03/24/2023 12:11:12 With:Mally Vazquez APRN Address: [address] [place] [id number] [phone] When:3 Months Comments:Follow-up sooner if needed.?? Call the office for any questions or concerns Physician Outpatient Note * Mally Vazquez APRN: PERFORM Event Display: Office Clinic Note Physician Authored Date: [id number] HENRIETTA DRAPER :1945 Age:78 years Sex:Female Visit Date:07/01/2023 Primary Care Physician: Mally Vazquez APRN Chief Complaint 3 Month follow up diabetes. Physical Exam Vitals & Measurements HR:??96??(Peripheral)?? BP:??104/60?? SpO2:??66%?? HT:??165.09??cm?? Assessment/Plan 1.??Diabetes mellitus type 2??E11.9 Ordered: Basic Metabolic Panel, Blood, Routine, 07/01/23, Once, Lab Collect, Diabetes mellitus type 2 Chronic kidney disease, stage 3a, Order for future visit Hgb A1c, Blood, Routine, 07/01/23, Once, Lab Collect, Diabetes mellitus type 2 Chronic kidney disease, stage 3a, Order for future visit ?? 2.??Chronic kidney disease, stage 3a??N18.31 Ordered: Basic Metabolic Panel, Blood, Routine, 07/01/23, Once, Lab Collect, Diabetes mellitus type 2 Chronic kidney disease, stage 3a, Order for future visit Hgb A1c, Blood, Routine, 07/01/23, Once, Lab Collect, Diabetes mellitus type 2 Chronic kidney disease, stage 3a, Order for future visit ?? 3.??Ductal carcinoma in situ (DCIS) of left breast??D05.12 ?? Future Orders Basic Metabolic Panel, Blood, Routine, 07/01/23, Once, Lab Collect, Diabetes mellitus type 2 Chronic kidney disease, stage 3a, Order for future visit Hgb A1c, Blood, Routine, 07/01/23, Once, Lab Collect, Diabetes mellitus type 2 Chronic kidney disease, stage 3a, Order for future visit Follow Up Instructions With When Contact Information Mally Vazquez APRN Within 3 Months [address] [place] [address] [phone] Additional Instructions: Follow-up sooner if needed.?? Call the office for any questions or concerns Problem List/Past Medical History Ongoing Acquired hypothyroidism [...] instructions famotidine 20 mg oral tablet furosemide 40 mg oral tablet, 40 mg= 1 tab, Oral, every morning, 3 refills gabapentin 100 mg oral capsule, 100 mg= 1 cap, Oral, Daily levothyroxine 137 mcg (0.137 mg) oral tablet, See Instructions, 3 refills losartan 100 mg oral tablet, 100 mg= 1 tab, Oral, Daily, 3 refills metFORMIN 500 mg oral tablet, 500 mg= 1 tab, Oral, every evening, 3 refills metoprolol tartrate 25 mg oral tablet, 25 mg= 1 tab, Oral, BID, 3 refills multivitamin adult, oral tablet, 1 tab, Oral, Daily [facility] oral capsule Allergies Flomax??(Dizziness) narcotic [...] 08/02/2022 Recorded Comments : RD done at [facility] Lot: [id number] exp: 05/08/2023 [employer] SARS-CoV-2 mRNA (tozinameran 12y+) bival 08/02/2022 Recorded Comments : Lot: [id number] Exp: 06/08/23 LD done at [facility] Electronically Signed on 07/01/23 01:24 PM Mally Vazquez APRN * Mally Vazquez APRN: PERFORM Event Display: Office Clinic Note Physician Authored Date: [id number] BONNY HENRIETTA A :1945 Age:78 years Sex:Female Visit Date:07/01/2023 Primary Care Physician: Mally Vazquez APRN Chief Complaint 3 Month follow up diabetes. History of Present Illness Henrietta is a very pleasant 78-year-old female who presents the office today for a follow-up for herdiabetes. ??She had a recent breast biopsy for an abnormal??mammogram and was found to have??DCIS in the left breast. ??She indicates??that they were able to??completely remove the cancer??and she will have??20??treatments of radiation.? She continues on metformin 500 mg??for diabetes. ??She is not currently checking her sugars, her last??check was in March after we had spoken.?? She thinks??her sugars were between 40 and 50 but??is not sure if this is correct. ??She has them written down. ??She??denies any??signs or symptoms of hypoglycemia or hyperglycemia. ?? She has chronic kidney disease??and indicates that [facility] nephrology??has not contacted her from the referral that was placed.?? She has not heard from??[employer] regarding her??diabetic shoes either. ?? She has a known??torn left rotator cuff and has seen ortho, she does not want surgery. She was seeing?? OT and it was somewhat helpful. Her insurance ran will no longer cover so she will continue with exercises. Review of Systems Constitutional: No fevers, chills, sweats Eye: No recent visual problems Respiratory: No shortness of breath, cough Cardiovascular: No Chest pain, palpitations, syncope Gastrointestinal: No nausea, vomiting, diarrhea, dark or bloody stool, no change in stool frequencyor consistency Genitourinary: No hematuria Endocrine: Negative for excessive thirst, excessive hunger Integumentary: No rash, pruritus, abrasions Neurologic: Alert & oriented X 4 Psychiatric: No anxiety, depression Physical Exam Vitals & Measurements HR:??96??(Peripheral)?? BP:??104/60?? SpO2:??66%?? HT:??165.09??cm?? General: Alert and oriented, well nourished, no acute distress Neck: Supple, non-tender, no masses, thyroid symmetric, no lymphadenopathy Lungs: Clear to auscultation, non-labored respiration, speaking in full sentences Heart: Normal rate, regular rhythm, no murmur, gallop or edema Neurologic:Awake, alert and oriented X4 Psychiatric: Cooperative, appropriate mood and affect?? Assessment/Plan 1.??Diabetes mellitus type 2??E11.9 Henrietta is a pleasant 78-year-old female.?? She is a history of type 2 diabetes, she states she is not currently checking her fingersticks.?? We had discussed??her diabetes in March and she had checkedthem a few times then. ??Indicates they were 40s to 50s??but then??notes she is unsure and will??sd ck??the numbers.?? We reviewed??normal and abnormal ranges for glucose.?? Continues to take metformin 500 mg in the evening and denies any side effects. She is agreeable to??check her sugars to let us know??how they are.?? Reviewed that we want??diabetes well controlled in the setting of her??chronic kidney disease to reduce risk of??further damage.?? She denies any??polyuria, polydipsia,??vision changes.? She is still waiting to hear from [facility] regarding diabetic foot wear.?? Office will??follow up. ?? Last A1c was within goal??of 6.8 that was checked about??6 months ago. Ordered: Basic Metabolic Panel, Blood, Routine, 07/01/23, Once, Lab Collect, Diabetes mellitus type 2 Chronic kidney disease, stage 3a, Order for future visit Hgb A1c, Blood, Routine, 07/01/23, Once, Lab Collect, Diabetes mellitus type 2 Chronic kidney disease, stage 3a, Order for future visit ?? 2.??Chronic kidney disease, stage 3a??N18.31 Kidney function checked about 5 months ago, EGFR had been??slightly worse at that time. ??She is also on Lasix and metformin, we had discussed??placing referral to [facility]??nephrology further evaluation??and guidance on?? medication. ??Patient notes she never received a phone call??from them.?? Our office will follow-up with??[facility] nephrology??to??ensure they received referral. Ordered: Basic Metabolic Panel, Blood, Routine, 07/01/23, Once, Lab Collect, Diabetes mellitus type 2 Chronic kidney disease, stage 3a, Order for future visit Hgb A1c, Blood, Routine, 07/01/23, Once, Lab Collect, Diabetes mellitus type 2 Chronic kidney disease, stage 3a, Order for future visit ?? 3.??Ductal carcinoma in situ (DCIS) of left breast??D05.12 Biopsy??was performed??on left breast??05/04/23 at [facility] and found to have DCIS. ??She was told??theywere able to get??it all out and she??will have 20??treatments of radiation??at [facility] oncology at??[facility]. She is awaiting a call to make the first appointment. ?? Henrietta will have her labs drawn in the next few weeks??A1c and BMP. ??We will follow-up in the office??in 3 months??for chronic care follow-up. Future Orders Basic Metabolic Panel, Blood, Routine, 07/01/23, Once, Lab Collect, Diabetes mellitus type 2 Chronic kidney disease, stage 3a, Order for future visit Hgb A1c, Blood, Routine, 07/01/23, Once, Lab Collect, Diabetes mellitus type 2 Chronic kidney disease, stage 3a, Order for future visit Problem List/Past Medical History Ongoing Acquired hypothyroidism [...] instructions famotidine 20 mg oral tablet furosemide 40 mg oral tablet, 40 mg= 1 tab, Oral, every morning, 3 refills gabapentin 100 mg oral capsule, 100 mg= 1 cap, Oral, Daily levothyroxine 137 mcg (0.137 mg) oral tablet, See Instructions, 3 refills losartan 100 mg oral tablet, 100 mg= 1 tab, Oral, Daily, 3 refills metFORMIN 500 mg oral tablet, 500 mg= 1 tab, Oral, every evening, 3 refills metoprolol tartrate 25 mg oral tablet, 25 mg= 1 tab, Oral, BID, 3 refills multivitamin adult, oral tablet, 1 tab, Oral, Daily [employer] [facility] oral capsule Allergies Flomax??(Dizziness) narcotic [...] 08/02/2022 Recorded Comments : RD done at [facility] Lot: [id number] [facility] (tozinameran 12y+) bival 08/02/2022 Recorded Comments : Lot: [id number] Exp: 06/08/23 LD done at [facility] Electronically Signed on 07/01/23 01:26 PM Mally Vazquez APRN Patient Care team information Care Team Personnel Name: Sanaz Fang APRN, Position: Physician Member Role: Nurse Practitioner Address: Address: [address] [place] [address] Name: Anabel Hallman APRN Position: Physician Member Role: Nurse Practitioner Address: Address: [address] [place] [address] Name: Mally Vazquez APRN Position: Physician Member Role: Primary Care Physician Address: Address: [address] [place] [address] [place] Care Team Related Persons Name: LAURA LEON Address: Home
--- OUTSIDE RECORDS SUMMARY | 2024-04-25 04:09 | XMS_ITS | Continuity of Care Document ---
Author Name Unknown Organization [facility] Address [address] [place] [id number] Care Team Providers Care Train Control Technician Name Role Phone Mally Vazquez APRN Primary Care Physician [phone] Encounter [facility] NBR [id number] Date(s): 11/11/23 - 11/11/[address] [id number] Encounter Diagnosis Dyspnea, unspecified(Final) - Viral infection, unspecified(Final) - Dyspnea(Discharge Diagnosis) - 11/11/23 Acute viral syndrome(Discharge Diagnosis) - 11/11/23 Discharge Disposition: Home or Self Care Attending Physician: Miguelangel Bobo MD Admitting Physician: Miguelangel Bobo MD Allergies, Adverse Reactions, Alerts Substance Reaction Severity Status narcotic analgesics 1 Unknown Active sulfa drugs Rash Hallucinations Unknown Active Flomax Dizziness Unknown Active 1coma for 4 days . unsure what they got Assessment and Plan Future Appointments Diagnostic Tests Pending * Blood Culture 11/11/23 * Blood Culture 11/11/23 Future Scheduled Tests Laboratory* Comprehensive Metabolic Panel 09/18/23 Radiology* US Kidney Bladder 08/31/23 Immunizations Given and Recorded Vaccine Date Status Refusal Reason influenza virus vaccine, inactivated 1 08/02/22 Re corded SARS-CoV-2 mRNA (toshainanameran 12y+) bival 2 08/02/22 Recorded 1Result Comment: RD done at [facility] Lot: [id number] exp: 05/08/2023 [employer] 2Result Comment: Lot: [id number] Exp: 06/08/23 LD done at [facility] Medications Albuterol (Eqv-Proventil HFA) 90 mcg/inh inhalation aerosol 1 puffs, Inhale, every 4 hr, PRN as needed for wheezing, Do not exceed 12 inhalations in a 24-hour period., # 1 EA, 0 Refill(s), Pharmacy: [id number], 170, cm, 11/11/22 12:19:00 EST, [...] taking., # 12 tab, 1 Refill(s), Pharmacy: [email or web address], 170, cm, 11/11/22 12:19:00 EST, Height/Length Dosing, 96, kg, 11/11/22 12:19:00 EST, Weight Dosing Start Date: 07/21/23 Stop Date: 01/05/24 Status: Ordered atorvastatin 10 mg oral tablet 10 mg = 1 tab, Oral, every evening, # 90 tab, 3 Refill(s), Pharmacy: [email or web address],114.09, cm, 08/12/22 16:18:00 EDT, Height/Length [...] morning, # 90 tab, 3 Refill(s), Pharmacy: [email or web address], 165, cm, 09/24/23 19:47:00 EST, Height, 102.2, kg, 09/24/23 19:47:00 EST, Weight Dosing Start Date: 10/13/23 Status: Ordered gabapentin 100 mg oral capsule 100 mg = 1 cap, Oral, Daily, # 90 cap, 3 Refill(s), Pharmacy: [email or web address], 165, cm, 09/24/23 19:47:00 EST, Height, 102.2, kg, 09/24/23 19:47:00 EST, Weight Dosing Start Date: 10/13/23 Stop Date: 10/07/24 Status: Ordered Jardiance 10 mg oral tablet 1 tab, Oral, every morning, # 30 tab, 0 Refill(s), Pharmacy: [id number], 165, cm, 09/24/2319:47:00 EST, Height, [...] STOMACH, # 90 tab, 3 Refill(s), Pharmacy: [email or web address], 170, cm, 11/11/22 12:19:00 EST, Height/Length Dosing, 96, kg,11/11/22 12:19:00 EST, Weight Dosing Start Date: 04/14/23 Status: Ordered losartan 100 mg oral tablet 1 tab, Oral, Daily, # 90 tab, 3 Refill(s), Pharmacy: [email or web address], 165, cm, 09/24/23 19:47:00 EST, Height, 102.2, kg, 09/24/23 19:47:00 EST, Weight Dosing Start Date: 10/01/23 Status: Ordered metoprolol tartrate 25 mg oral tablet 25 mg = 1 tab, Oral, BID, # 180 tab, 3 Refill(s), Pharmacy: [email or web address], 170, cm,11/11/22 12:19:00 EST, Height/Length Dosing, 96, kg, 11/11/22 12:19:00 EST, Weight Dosing Start Date: 08/25/23 Stop Date: 08/19/24 Status: Ordered multivitamin adult, oral tablet 1 tab, Oral, Daily Start Date: 08/11/22 Status: Ordered GraphSQL oral capsule 8 EA, TAKE 1 CAPSULE BY MOUTH TWICE DAILY, 0 Refill(s) Start Date: 04/22/23 Status: Ordered Please provide one touch ultra test strips Please provide one touch ultra test strips, For blood glucose monitoring once daily., Supply, See instructions, # 100 EA, 3 Refill(s), Pharmacy: [email or web address] Start Date: 10/23/23 Status: Ordered Mental Status 11/11/23 Eye Opening Response [place] Spontaneous ly Best Verbal Response [place] Oriented Best Motor Response [place] Obeys comman ds [place] Coma Score 15 [...] to Fibroids Results Laboratory List Name Date Lactic Acid 11/11/23 Troponin-I High Sensitivity 11/11/23 BNP 11/11/23 CBC w/ Diff 11/11/23 Comprehensive Metabolic Panel 11/11/23 Lactic Acid 11/11/23 Troponin-I High Sensitivity 11/11/23 Urinalysis Microscopic 11/11/23 Urinalysis with Micro if Indicated and C ulture if Indicated 11/11/23 Respiratory Panel 2.1 ([employer]) 11/11/23 Automated Diff 11/11/23 Most recent to oldest [Reference Range]: 1 2 WBC [4.8-10.8 K/mcL] 9.2 K/mcL (11/11/23 10:58 AM) RBC [4.20-5.40 Million/mcL] 3.24 Million /mcL *LOW* (11/11/23 10:58 AM) Neutro Auto [42.2-75.2 %] 79.3 % *HI* (11/11/23 10:58 AM) Lymph Auto [20.5-51.1 %] 8.6 % *LOW* (11/11/23 10:58 AM) Turner Auto [1.7-9.3 %] 10.7 % *HI* (11/11/23 10:58 AM) Basophil Auto [0.0-0.8 %] 0.7 % (11/11/23 10:58 AM) BUN [7-25 mg/dL] 35 mg/dL *HI* (11/11/23 10:58 AM) UA Color [Yellow] Yellow (11/11/23 10:44 AM) UA WBC [0-3] 10-25 *ABN* (11/11/23 10:44 AM) Glucose Level [70-109 mg/dL] 237 mg/dL *HI* (11/11/23 10:58 AM) Potassium Level [3.5-5.1 mmol/L] 4.2 mmo l/L (11/11/23 10:58 AM) Baso Absolute [0.0-0.2 K/mcL] 0.1 K/mcL (11/11/23 10:58 AM) MCV [81.0-99.0 fL] 89.9 fL (11/11/23 10:58 AM) UA Urobilinogen [0.2] 0.2 (11/11/23 10:44 AM) UA Hyal Cast [0-3] 0-3 (11/11/23 10:44 AM) UA Bili [Negative] Negative (11/11/23 10:44 AM) UA Ketones [Negative] Negative (11/11/23 10:44 AM) AST [13-39 IntlUnit/L] 15 IntlUnit/L (11/11/23 10:58 AM) ALT [7-52 IntlUnit/L] 9 IntlUnit/L (11/11/23 10:58 AM) MCHC [32.0-37.0 g/dL] 32.4 g/dL (11/11/23 10:58 AM) Osmolality [275-295 mOsm/kg] 293 mOsm/kg (11/11/23 10:58 AM) Sodium Level [136-145 mmol/L] 139 mmol/L (11/11/23 10:58 AM) UA RBC [0-3] 0-3 (11/11/23 10:44 AM) UA Leuk Est [Negative] Small *ABN* (11/11/23 10:44 AM) Lymph Absolute [1.2-3.4 K/mcL] 0.8 K/mcL *LOW* (11/11/23 10:58 AM) UA Nitrite [Negative] Negative (11/11/23 10:44 AM) UA Glucose [Negative] >=1000 *ABN* (11/11/23 10:44 AM) Hct [37.0-47.0 %] 29.1 % *LOW* (11/11/23 10:58 AM) UA Bacteria [None Seen] 1+ *ABN* (11/11/23 10:44 AM) Calcium Level [8.6-10.3 mg/dL] 9.1 mg/dL (11/11/23 10:58 AM) Turner Absolute [0.1-0.6 K/mcL] 1.0 K/mcL *HI* (11/11/23 10:58 AM) Albumin Level [3.5-5.7 g/dL] 3.7 g/dL (11/11/23 10:58 AM) Protein Total [6.4-8.9 g/dL] 7.5 g/dL (11/11/23 10:58 AM) UA Protein [Negative] Negative (11/11/23 10:44 AM) MCH [27.0-31.0 pg] 29.1 pg (11/11/23 10:58 AM) Neutro Absolute [1.4-6.5 K/mcL] 7.3 K/mc L *HI* (11/11/23 10:58 AM) Bilirubin Total [0.3-1.0 mg/dL] 1.3 mg/d L *HI* (11/11/23 10:58 AM) Hgb [12.0-16.0 g/dL] 9.4 g/dL *LOW* (11/11/23 10:58 AM) Alk Phos [34-104 IntlUnit/L] 63 IntlUnit /L (11/11/23 10:58 AM) UA Blood [Negative] Trace *ABN* (11/11/23 10:44 AM) MPV [7.4-10.4 fL] 9.5 fL (11/11/23 10:58 AM) UA Spec Grav [1.001-1.030] 1.010 (11/11/23 10:44 AM) Platelets [130-400 K/mcL] 245 K/mcL (11/11/23 10:58 AM) CO2 [21-31 mmol/L] 27 mmol/L (11/11/23 10:58 AM) Eos Absolute [0.0-0.2 K/mcL] 0.1 K/mcL (11/11/23 10:58 AM) Lactic Acid Lvl [0.5-2.2 mmol/L] 1.2 mmo l/L (11/11/23 2:15 PM) 2.1 mmol/L (11/11/23 10:58 AM) UA Squam Epithelial [0-3] 0-3 (11/11/23 10:44 AM) UA pH [5.00-9.00] 5.50 (11/11/23 10:44 AM) BNP [<=100 pg/mL] 156 pg/mL *HI* (11/11/23 10:58 AM) UA Appear [Clear] Clear (11/11/23 10:44 AM) Chloride Level [98-107 mmol/L] 102 mmol/ L (11/11/23 10:58 AM) RDW-CV [11.5-14.5 %] 15.4 % *HI* (11/11/23 10:58 AM) Adenovirus RespP-BFire [Not Detected] No t Detected (11/11/23 10:30 AM) Bordetella parapertussis Res pP-BFire [Not Detected] Not Detected (11/11/23 10:30 AM) Bordetella pertussis RespP-B Fire [Not Detected] Not Detected (11/11/23 10:30 AM) Chlamydophila pneumoniae Res pP-BFire [Not Detected] Not Detected (11/11/23 10:30 AM) Coronavirus 229E (Not COVID- 19) RP-BFire [Not Detected] Not Detected (11/11/23 10:30 AM) Coronavirus HKU1 (Not COVID- 19) RP-BFire [Not Detected] Not Detected (11/11/23 10:30 AM) Coronavirus NL63 (Not COVID- 19) RP-BFire [Not Detected] Not Detected (11/11/23 10:30 AM) Coronavirus OC43 (Not COVID- 19) RP-BFire [Not Detected] Not Detected (11/11/23 10:30 AM) Human Metapneumonovirus Resp P-BFire [Not Detected] Not Detected (11/11/23 10:30 AM) Human Rhinovirus/Enterovirus RespP-BFir [Not Detected] Not Detected (11/11/23 10:30 AM) Influenza A RespP-BFire [Not Detected] N ot Detected (11/11/23 10:30 AM) Influenza B RespP-BFire [Not Detected] N ot Detected (11/11/23 10:30 AM) Mycomplasma pneumoniae RespP -BFire [Not Detected] Not Detected (11/11/23 10:30 AM) Parainfluenza Virus 1 RespP- BFire [Not Detected] Not Detected (11/11/23 10:30 AM) Parainfluenza Virus 2 RespP- BFire [Not Detected] Not Detected (11/11/23 10:30 AM) Parainfluenza Virus 3 RespP- BFire [Not Detected] Not Detected (11/11/23 10:30 AM) Parainfluenza Virus 4 RespP- BFire [Not Detected] Not Detected (11/11/23 10:30 AM) Respiratory Syncytial Virus RespP-BFire [Not Detected] Not Detected (11/11/23 10:30 AM) A/G Ratio [1.0-2.5 g/dL] 1.0 g/dL (11/11/23 10:58 AM) BUN/Creat Ratio [8.0-20.0] 19.4 (11/11/23 10:58 AM) Globulin [2.3-3.5 g/dL] 3.8 g/dL *HI* (11/11/23 10:58 AM) UA Culture Ind?. [No] Yes (11/11/23 10:44 AM) Urine Srce Clean Catch (11/11/23 10:44 AM) UA Trans Epi [None Seen] 0-3 *ABN* (11/11/23 10:44 AM) Creatinine Level [0.60-1.20 mg/dL] 1.80 mg/dL *HI* (11/11/23 10:58 AM) SARS-CoV-2 (COVID-19) RP-BFire [Not Dete cted] Not Detected (11/11/23 10:30 AM) Troponin-I HS [<=12 ng/L] 13 ng/L 1 *HI* (11/11/23 12:33 PM) 15 ng/L 2 *HI* (11/11/23 10:58 AM) Anion Gap [3.0-12.0] 10.0 (11/11/23 10:58 AM) Eos, Auto [0.00-3.00 %] 0.70 % (11/11/23 10:58 AM) eGFR CKD-EPI [>=60 mL/min/1.73 m2] 28 mL /min/1.73 m2 *LOW* (11/11/23 10:58 AM) 1Interpretive Data: [facility] ACCESS high-sensitivity Troponin I [...] heart disease from those who do not. 2Interpretive Data: [facility] ACCESS high-sensitivity Troponin I [...] not. Orders for Microbiology Reports Name Date Urine Culture 11/11/23 Microbiology Reports TEST:Urine Culture STATUS:Auth (Verified) BODY SITE: SOURCE:Urine, Clean Catch COLLECTED DATE/TIME:11/11/23 10:44 AM FINAL REPORT >100,000 cfu/ml Mixed bacterial morphotypes present. Possible contamination. Suggest appropriate collection if clinically indicated. Radiology Reports * Exam Date Time Procedure Performing Provider Status 11/11/23 10:50 AM XR Chest 1 View Govind Brock; Auth (V erified) Notes: (XR Chest 1 View) Reason For Exam: Dyspnea XR Chest 1 View EXAM DESCRIPTION: XR Chest 1 View 11/11/2023 INDICATION: DYSPNEA COMPARISON: 10/21/2023 FINDINGS: Clear lungs with no focal infiltrate or pulmonary edema. Normal cardiomediastinal contour. Previous median sternotomy and valve replacement. No significant pleural effusion or pneumothorax. Skinfold or clothing fold artifact overlying the right upper chest. IMPRESSION: No active chest disease. JOB #: [id number] Final Signed by: Kishore Parra MD Signed (Electronic Signature): 11/11/2023 11:04 am Vital Signs Most recent to oldest [Reference Range]: 1 2 3 Temperature Oral [35.8-37.3 Deg C] 36.9 Deg C (11/11/23 9:58 AM) Peripheral Pulse Rate [60-100 bpm] 87 bpm (11/11/23 2:30 PM) 86 bpm (11/11/23 12:30 PM) 82 bpm (11/11/23 11:30 AM) Respiratory Rate [12-24 br/min] 36 br/min *HI* (11/11/23 9:58 AM) Blood Pressure [90-140/60-90 mmHg] 122/54mmHg (11/11/23 11:00 AM) 109/52mmHg (11/11/23 10:30 AM) 124/53mmHg (11/11/23 9:58 AM) Mean Arterial Pressure, Cuff [70-110 mmHg] 77 mmHg (11/11/23 11:00 AM) 71 mmHg (11/11/23 10:30 AM) 77 mmHg (11/11/23 9:58 AM) Mean Arterial Pressure Cuff 48 mmHg (11/11/23 11:30 AM) 72 mmHg (11/11/23 11:00 AM) 69 mmHg (11/11/23 10:30 AM) O2 Therapy High Concentration Del LTC Yes (11/11/23 2:30 PM) Weight Estimated 101 kg (11/11/23 9:58 AM) Body Mass Index Estimated 37.1 kg/m2 (11/11/23 9:58 AM) Height/Length Estimated 165 cm (11/11/23 9:58 AM) Social History Social History Type Response Tobacco Never tobacco user T obacco Use:. 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 Katlyn Hallman, DO 08/12/22 Non Biological Knee L Device Identifier Serial Number Lot or Batch Number Manufacturing Date Expiration Date Distinct Identification Code MRI Safety Implantable Status Assigning Authority Unknown NA [id number] Unknown 08/07/24 Unknown Unknown Active Unknown Unknown N/A [id number] Unknown 06/10/32 Unknown Unknown Active Unknown Unknown NA [id number] 1 Unknown 04/01/27 Unknown Unknown Active Unknown Unknown N/A [id number] 2 Unknown 12/07/31 Unknown Unknown Active Unknown Unknown N/A [id number] 2 Unknown 12/15/26 Unknown Unknown Active Unknown Hospital Discharge Instructions Patient Education 11/11/2023 14:02:06 Viral Illness, Adult Viral Illness, Adult Viruses are tiny germs that can get into a person's body and cause illness. There are many different types of viruses, and they cause many types of illness. Viral illnesses can range from mild to severe. They can affect various parts of the body. Short-term conditions that are caused by a virus include colds and the flu (influenza). Long-term conditions that are caused by a virus include herpes, shingles, and HIV (human immunodeficiency virus) infection. A few viruses have been linked to certain cancers. What are the causes? Many types of viruses can cause illness. Viruses invade cells in your body, multiply, and cause theinfected cells to work abnormally or . When these cells , they release more of the virus. When this happens, you develop symptoms of the illness, and the virus continues to spread to other cells. If the virus takes over the function of the cell, it can cause the cell to divide and grow out ofcontrol. This happens when a virus causes cancer. Different viruses get into the body in different ways. You can get a virus by: ??? Swallowing food or water that has come in contact with the virus (is contaminated). ??? Breathing in droplets that have been coughed or sneezed into the air by an infected person. ??? Touching a surface that has been contaminated with the virus and then touching your eyes, nose,or mouth. ??? Being bitten by an insect or animal that carries the virus. ??? Having sexual contact with a person who is infected with the virus. ??? Being exposed to blood or fluids that contain the virus, either through an open cut or during atransfusion. If a virus enters your body, your body's defense system (immune system) will try to fight the virus. You may be at higher risk for a viral illness if your immune system is weak. What are the signs or symptoms? You may have these symptoms, depending on the type of virus and the location of the cells that it invades: ??? Cold and flu viruses: ??? Fever. ??? Headache. ??? Sore throat. ??? Muscle aches. ??? Stuffy nose (nasal congestion). ??? Cough. ??? Digestive system (gastrointestinal) viruses: ??? Fever. ??? Pain in the abdomen. ??? Nausea. ??? Diarrhea. ??? Liver viruses (hepatitis): ??? Loss of appetite. ??? Tiredness. ??? Skin or the white parts of your eyes turning yellow (jaundice). ??? Brain and spinal cord viruses: ??? Fever. ??? Headache. ??? Stiff neck. ??? Nausea and vomiting. ??? Confusion or sleepiness. ??? Skin viruses: ??? Warts. ??? Itching. ??? Rash. ??? Sexually transmitted viruses: ??? Discharge. ??? Swelling. ??? Redness. ??? Rash. How is this diagnosed? This condition may be diagnosed based on one or more of the following: ??? Symptoms. ??? Medical history. ??? Physical exam. ??? Blood test, sample of mucus from your lungs (sputum sample), stool sample, or a swab of body fluids or a skin sore (lesion). How is this treated? Viruses can be hard to treat because they live within cells. Antibiotic medicines do not treat viruses because these medicines do not get inside cells. Treatment for a viral illness may include: ??? Resting and drinking plenty of fluids. ??? Medicines to relieve symptoms. These can include wszr-xnn-sndfzrp medicine for pain and fever, medicines for cough or congestion, and medicines to relieve diarrhea. ??? Antiviral medicines. These medicines are available only for certain types of viruses. Some viral illnesses can be prevented with vaccinations. A common example is the flu shot. Follow these instructions at home: Medicines ??? Take yifl-wki-esdywdy and prescription medicines only as told by your health care provider. ??? If you were prescribed an antiviral medicine, take it as told by your health care provider. Do not stop taking the antiviral even if you start to feel better. ??? Be aware of when antibiotics are needed and when they are not needed. Antibiotics do not treat viruses. You may get an antibiotic if your health care provider thinks that you may have, or are at risk for, a bacterial infection and you have a viral infection. ??? Do not ask for an antibiotic prescription if you have been diagnosed with a viral illness. Antibiotics will not make your illness go away faster. ??? Frequently taking antibiotics when they are not needed can lead to antibiotic resistance. When this develops, the medicine no longer works against the bacteria that it normally fights. General instructions ??? Drink enough fluids to keep your urine pale yellow. ??? Rest as much as possible. ??? Return to your normal activities as told by your health care provider. Ask your health care provider what activities are safe for you. ??? Keep all follow-up visits as told by your health care provider. This is important. How is this prevented? To reduce your risk of viral illness: ??? Wash your hands often with soap and water for at least 20 seconds. If soap and water are not available, use hand sat math tutor. ??? Avoid touching your nose, eyes, and mouth, especially if you have not washed your hands recently. ??? If anyone in your household has a viral infection, clean all household surfaces that may have been in contact with the virus. Use soap and hot water. You may also use bleach that you have added water to (diluted). ??? Stay away from people who are sick with symptoms of a viral infection. ??? Do not share items such as toothbrushes and water bottles with other people. ??? Keep your vaccinations up to date. This includes getting a yearly flu shot. ??? Eat a healthy diet and get plenty of rest. Contact a health care provider if: ??? You have symptoms of a viral illness that do not go away. ??? Your symptoms come back after going away. ??? Your symptoms get worse. Get help right away if you have: ??? Trouble breathing. ??? A severe headache or a stiff neck. ??? Severe vomiting or pain in your abdomen. These symptoms may represent a serious problem that is an emergency. Do not wait to see if the symptoms will go away. Get medical help right away. Call your local emergency services (911 in the [place] Do not drive yourself to the hospital. Summary ??? Viruses are types of germs that can get into a person's body and cause illness. Viral illnessescan range from mild to severe. They can affect various parts of the body. ??? Viruses can be hard to treat. There are medicines to relieve symptoms, and there are some antiviral medicines. ??? If you were prescribed an antiviral medicine, take it as told by your health care provider. Do not stop taking the antiviral even if you start to feel better. ??? Contact a health care provider if you have symptoms of a viral illness that do not go away. This information is not intended to replace advice given to you by your health care provider. Make sure you discuss any questions you have with your health care provider. Document Revised: 03/11/2021 Document Reviewed: 09/04/2020 [employer] Patient Education ?? 2022 [employer] 11/11/2023 14:02:04 Shortness of Breath, Adult Shortness of Breath, Adult Shortness of breath is when a person has trouble breathing or when a person feels like she or he ishaving trouble breathing in enough air. Shortness of breath could be a sign of a medical problem. Follow these instructions at home: Pollutants ??? Do not use any products that contain nicotine or tobacco. These products include cigarettes, chewing tobacco, and vaping devices, such as e-cigarettes. This also includes cigars and pipes. If youneed help quitting, ask your health care provider. ??? Avoid things that can irritate your airways, including: ??? Smoke. This includes campfire smoke, forest fire smoke, and secondhand smoke from tobacco products. Do not smoke or allow others to smoke in your home. ??? Mold. ??? Dust. ??? Air pollution. ??? Chemical fumes. ??? Things that can give you an allergic reaction (allergens) if you have allergies. Common allergens include pollen from grasses or trees and animal dander. ??? Keep your living space clean and free of mold and dust. General instructions ??? Pay attention to any changes in your symptoms. ??? Take sspr-xli-xdqexbr and prescription medicines only as told by your health care provider. This includes oxygen therapy and inhaled medicines. ??? Rest as needed. ??? Return to your normal activities as told by your health care provider. Ask your health care provider what activities are safe for you. ??? Keep all follow-up visits. This is important. Contact a health care provider if: ??? Your condition does not improve as soon as expected. ??? You have a hard time doing your normal activities, even after you rest. ??? You have new symptoms. ??? You cannot walk up stairs or exercise the way that you normally do. Get help right away if: ??? Your shortness of breath gets worse. ??? You have shortness of breath when you are resting. ??? You feel light-headed or you faint. ??? You have a cough that is not controlled with medicines. ??? You cough up blood. ??? You have pain with breathing. ??? You have pain in your chest, arms, shoulders, or abdomen. ??? You have a fever. These symptoms may be an emergency. Get help right away. Call 911. ??? Do not wait to see if the symptoms will go away. ??? Do not drive yourself to the hospital. Summary ??? Shortness of breath is when a person has trouble breathing enough air. It can be a sign of a medical problem. ??? Avoid things that irritate your lungs, such as smoking, pollution, mold, and dust. ??? Pay attention to changes in your symptoms and contact your health care provider if you have a hard time completing daily activities because of shortness of breath. This information is not intended to replace advice given to you by your health care provider. Make sure you discuss any questions you have with your health care provider. Document Revised: 06/14/2022 Document Reviewed: 06/14/2022 [employer] Patient Education ?? 2022 [employer]. Follow Up Care 11/11/2023 09:58:38 With:Mally Vazquez APRN Address: [address] [place] [phone] When:2 to 4 days Comments:As we discussed??your chest x-ray does not show any sign of pneumonia.?? You had a??brief episode where your oxygen level was measured to be low.?? Your oxygen is no longer low. ??You are able to ambulate??and maintain a normal oxygen??level.?? You??most likely have a viral illness.?? You may try Mu cinex to help with your symptoms. ??You should follow-up closely with your primary care physician.?? Return for worsening in symptoms. Physician Emergency department Note * THEODORE Contreras: PERFORM Event Display: ED Note Physician Authored Date: [id number] DRAPERYVETTE :1945 Age:78 years Sex:Female Visit Date:11/11/2023 Primary Care Physician: Mally Vazquez APRN Basic Information Time Seen: THEODORE Contreras / 11/11/2023 10:08 Chief Complaint Pt arrives with complaints of dyspnea, low energy and dry cough for about 1 week. History Of Present Illness: The patient is a 78-year-old female who presents to the emergency department for evaluation of shortness of breath.?? She has been feeling ill over the past week. ??She does note a sore throat and cough.?? She has gotten worse over the past couple of days. ??She is not sure if she has had a fever. ??She does note some chills.?? The patient??does note??fatigue.?? She does have some chest pain which she relates to cough. ??She denies any vomiting??or diarrhea. ??She denies any abdominal pain. ??She denies any lower extremity edema. Review of Systems: Review of systems as noted??in the HPI Physical Exam Vitals & Measurements T:??36.9?C ??(Oral)?? HR:??86??(Peripheral)?? RR:??36?? BP:??122/54?? SpO2:??95%?? HT:??165??cm?? WT:??101??kg??(Estimated)?? BMI:??37.1?? O2 Flow Rate:??1?? O2 Therapy:??Room air?? General: Alert,??appears short of breath, appears fatigued Head: Normocephalic, atraumatic Eyes: Pupils round, reactive to light, normal sclerae, conjunctivae, conjugate gaze Ears: Grossly normal auditory acuity Mouth: Moist mucous membranes Neck: Supple, no JVD, no lymphadenopathy Lungs: Clear to auscultation bilaterally,??tachypnea Heart: Normal rate, regular rhythm Abdomen: Non-distended, non-tender, normal bowel sounds Extremities: No edema, pulses 2+ Skin: Exposed skin normal with no rashes, no lesions, no stasis changes Neurologic: Awake, alert, oriented, no focal deficits grossly Psychiatric: Cooperative, appropriate mood and affect Medical Decision Making: The patient is a 78-year-old female who presents to the emergency department for evaluation of shortness of breath. ??Patient has a??significant past medical history??which includes??but not limited to??asthma, cardiomyopathy, coronary artery disease, type 2 diabetes??and non-Hodgkin's lymphoma. ??She has been feeling ill over the past week.?? She??states that she has felt worse over the past??couple of days.?? She??has had some chills and cough. ??On exam she appears to be quite tachypneic.?? She is currently on??1 L of oxygen by nasal cannula as she had a saturation of 89% on room air. ??She was also noted to be??slightly hypotensive with a systolic pressure of 97.?? The patient has clear lung sounds on exam. ??I do suspect an infectious etiology??given the patient's??symptoms leading up to her??presentation today.?? Given her oxygen requirement I do anticipate that she will need to be admitted to the hospital.?? Laboratory studies were obtained and the patient's initial lactic acid??was 2.1, otherwise unremarkable. ??Respiratory panel was??negative. ??Chest x-ray showed no evidence of acute cardiopulmonary disease.?? On reevaluation the patient has had improvement of her??symptoms.?? Her lungs continue to sound clear.?? She was able to ambulate with nursing staff off oxygen and maintain a saturation of 95% on room air.?? Monitored in the room off oxygen?? She was and continues to maintain a saturation above 95%.?? Given the patient's improvement of her symptoms I do feel that she is appropriate for discharge home.?? I question the validity of the prior oxygen saturationof 89%.?? The patient has been witnessed to fidget with??the pulse ox. ??The pleths??have been inconsistent.?? When the patient was witnessed to have a good pleth, her oxygen has been??in the upper 90 s.?? The patient is comfortable with discharge home.?? I discussed with her that I do suspect that this is a viral illness.?? She was encouraged to follow-up closely with the??primary care physician.??She is advised to return??to the emergency department at any point time for any worsening in symptoms. Procedure No Qualifying Data Assessment/Plan 1.??Dyspnea??R06.00 2.??Acute viral syndrome??B34.9 Orders: Blood Culture, Blood, Arm R, Stat collect, ST - Stat, 11/11/23 10:25:00 EST, Once, Nurse collect, Print Label Blood Culture, Blood, Arm L, Stat collect, ST - Stat, 11/11/23 10:25:00 EST, Once, Nurse collect, Print Label CV Electrocardiogram 12 Lead, 11/11/23 10:27:00 EST, Stat, Reason: Dyspnea, Stop date and time 11/11/23 10:27:00 EST, Reason: Special Instructions, ORD_SET_REQ_DT_RANGE, [facility] Internal Person Id Discharge Patient, 11/11/23 15:04:00 EST, Home Independently Urine Culture, U CleanCatch, Stat collect, ST - Stat, 11/11/23 10:44:00 EST, Once, Nurse collect, Collected, 11/11/23 10:44:00 EST, Print Label, [id number] Patient Education Viral Illness, Adult Shortness of Breath, Adult Follow Up With When Contact Information Mally Vazquez APRN Within 2 to 4 days [address] [place] [address] [phone] Additional Instructions: As we discussed??your chest x-ray does not show any sign of pneumonia.?? You had a??brief episode where your oxygen level was measured to be low.?? Your oxygen is no longer low. ??You are able to ambulate??and maintain a normal oxygen??level.?? You??most likely have a viral illness.?? You may try Mucinex to help with your symptoms. ??[facility]?? Return for worsening in symptoms. Medication Reconciliation Unchanged albuterol (Albuterol (Eqv-Proventil HFA) [...] evening for 90 Days.Refills: 3. ?? bifidobacterium-lactobacillus (GraphSQL oral capsule)8 EA, TAKE 1 CAPSULE BY [...] 0. ?? famotidine (famotidine 20 mg oral tablet)1 tab Oral (given by mouth) every day. ?? folic acid (folic acid 1 [...] Oral (given by mouth) every day. ?? One Touch Ultra Test Strips (Please [...] Administration Given Sodium Chloride 0.9%, 1000 mL, Hydration Bolus Allergies Flomax??(Dizziness) narcotic analgesics sulfa drugs??(Rash, Hallucinations) [...] Father. Diagnostic Results XR Chest 1 View 11/11/2023 11:07 EST XR Chest 1 View ?? 11/11/23 11:04:45 EXAM DESCRIPTION: XR Chest 1 View ?? 11/11/2023 ?? INDICATION: DYSPNEA ?? COMPARISON: 10/21/2023 ?? FINDINGS: Clear lungs with no focal infiltrate or pulmonary edema. ?? Normal cardiomediastinal contour. Previous median sternotomy and valve replacement. ?? No significant pleural effusion or pneumothorax. ?? Skinfold or clothing fold artifact overlying the right upper chest. ?? IMPRESSION: No active chest disease. ? JOB #: [id number] Electronically Signed By: ?? Signed By: Kishore Parra MD Lab Results CBC and Differential?? LATEST RESULTS?? HISTORICAL RESULTS?? WBC?? 11/11/23 10:58?? 9.2?? 11/06/23?? 6.2?? RBC?? 11/11/23 10:58?? 3.24 ??Low?? 11/06/23?? 3.22 ??Low?? Hgb?? 11/11/23 10:58?? 9.4 ??Low?? 11/06/23?? 9.5 ??Low?? Hct?? 11/11/23 10:58?? 29.1 ??Low?? 11/06/23?? 29.3 ??Low?? MCV?? 11/11/23 10:58?? 89.9?? 11/06/23?? 91.1?? MCH?? 11/11/23 10:58?? 29.1?? 11/06/23?? 29.6?? MCHC?? 11/11/23 10:58?? 32.4?? 11/06/23?? 32.4?? RDW-CV?? 11/11/23 10:58?? 15.4 ??High?? 11/06/23?? 14.8 ??High?? Platelets?? 11/11/23 10:58?? 245?? 11/06/23?? 191?? MPV?? 11/11/23 10:58?? 9.5?? 11/06/23?? 9.1?? Neutro Auto?? 11/11/23 10:58?? 79.3 ??High?? 11/06/23?? 75.9 ??High?? Lymph Auto?? 11/11/23 10:58?? 8.6 ??Low?? 11/06/23?? 13.3 ??Low?? Turner Auto?? 11/11/23 10:58?? 10.7 ??High?? 11/06/23?? 8.3?? Eos, Auto?? 11/11/23 10:58?? 0.70?? 11/06/23?? 2.00?? Basophil Auto?? 11/11/23 10:58?? 0.7?? 11/06/23?? 0.5?? Neutro Absolute?? 11/11/23 10:58?? 7.3 ??High?? 11/06/23?? 4.7?? Lymph Absolute?? 11/11/23 10:58?? 0.8 ??Low?? 11/06/23?? 0.8 ??Low?? Turner Absolute?? 11/11/23 10:58?? 1.0 ??High?? 11/06/23?? 0.5?? Eos Absolute?? 11/11/23 10:58?? 0.1?? 11/06/23?? 0.1?? Baso Absolute?? 11/11/23 10:58?? 0.1?? 11/06/23?? 0.0? Routine Chemistry?? LATEST RESULTS?? HISTORICAL RESULTS?? Sodium Level?? 11/11/23 10:58?? 139?? 11/06/23?? 140?? Potassium Level?? 11/11/23 10:58?? 4.2?? 11/06/23?? 4.2?? Chloride Level?? 11/11/23 10:58?? 102?? 11/06/23?? 103?? CO2?? 11/11/23 10:58?? 27?? 11/06/23?? 29?? Alk Phos?? 11/11/23 10:58?? 63?? 11/06/23?? 65?? AST?? 11/11/23 10:58?? 15?? 11/06/23?? 20?? ALT?? 11/11/23 10:58?? 9?? 11/06/23?? 14?? BUN?? 11/11/23 10:58?? 35 ??High?? 11/06/23?? 31 ??High?? Glucose Level?? 11/11/23 10:58?? 237 ??High?? 11/06/23?? 175 ??High?? Creatinine Level?? 11/11/23 10:58?? 1.80 ??High?? 11/06/23?? 1.50 ??High?? BUN/Creat Ratio?? 11/11/23 10:58?? 19.4?? 11/06/23?? 20.7 ??High?? eGFR CKD-EPI?? 11/11/23 10:58?? 28 ??Low?? 11/06/23?? 35 ??Low?? Calcium Level?? 11/11/23 10:58?? 9.1?? 11/06/23?? 8.6?? Protein Total?? 11/11/23 10:58?? 7.5?? 11/06/23?? 7.0?? Albumin Level?? 11/11/23 10:58?? 3.7?? 11/06/23?? 3.8?? Globulin?? 11/11/23 10:58?? 3.8 ??High?? 11/06/23?? 3.2?? A/G Ratio?? 11/11/23 10:58?? 1.0?? 11/06/23?? 1.2?? Bilirubin Total?? 11/11/23 10:58?? 1.3 ??High?? 11/06/23?? 0.9?? Anion Gap?? 11/11/23 10:58?? 10.0?? 11/06/23?? 8.0?? Lactic Acid Lvl?? 11/11/23 14:15?? 1.2?? 10/22/23?? 0.6?? Osmolality?? 11/11/23 10:58?? 293?? 11/06/23?? 290? Cardiac Isoenzymes?? LATEST RESULTS?? HISTORICAL RESULTS?? BNP?? 11/11/23 10:58?? 156 ??High? Troponin-I HS?? 11/11/23 12:33?? 13 ??High?? 10/21/23?? 12? UA Macroscopic?? LATEST RESULTS?? HISTORICAL RESULTS?? Urine Srce?? 11/11/23 10:44?? Clean Catch?? 10/21/23?? Clean Catch?? UA Color?? 11/11/23 10:44?? Yellow?? 10/21/23?? Yellow?? UA Appear?? 11/11/23 10:44?? Clear?? 10/21/23?? Clear?? UA Glucose?? 11/11/23 10:44?? >=1000 Abnormal?? 10/21/23?? >=1000 Abnormal?? UA Bili?? 11/11/23 10:44?? Negative?? 10/21/23?? Negative?? UA Ketones?? 11/11/23 10:44?? Negative?? 10/21/23?? Negative?? UA Spec Grav?? 11/11/23 10:44?? 1.010?? 10/21/23?? 1.010?? UA Blood?? 11/11/23 10:44?? Trace Abnormal?? 10/21/23?? Trace Abnormal?? UA pH?? 11/11/23 10:44?? 5.50?? 10/21/23?? 6.00?? UA Protein?? 11/11/23 10:44?? Negative?? 10/21/23?? Negative?? UA Urobilinogen?? 11/11/23 10:44?? 0.2?? 10/21/23?? 0.2?? UA Nitrite?? 11/11/23 10:44?? Negative?? 10/21/23?? Negative?? UA Leuk Est?? 11/11/23 10:44?? Small Abnormal?? 10/21/23?? Trace Abnormal?? UA Culture Ind?.?? 11/11/23 10:44?? Yes?? 10/21/23?? No? UA Microscopic?? LATEST RESULTS?? HISTORICAL RESULTS?? UA WBC?? 11/11/23 10:44?? 10-25 Abnormal?? 10/21/23?? 0-3?? UA RBC?? 11/11/23 10:44?? 0-3?? 10/21/23?? 0-3?? UA Squam Epithelial?? 11/11/23 10:44?? 0-3?? 10/21/23?? 0-3?? UA Trans Epi?? 11/11/23 10:44?? 0-3 Abnormal?? 10/21/23?? 0-3 Abnormal?? UA Bacteria?? 11/11/23 10:44?? 1+ Abnormal?? 08/14/22?? 1+ Abnormal?? UA Hyal Cast?? 11/11/23 10:44?? 0-3?? 10/21/23?? 0-3? Infectious Disease?? LATEST RESULTS?? HISTORICAL RESULTS?? Adenovirus RespP-BFire?? 11/11/23 10:30?? Not Detected?? 11/11/22?? Not Detected?? Bordetella parapertussis RespP-BFire?? 11/11/23 10:30?? Not Detected?? 11/11/22?? Not Detected?? Bordetella pertussis RespP-BFire?? 11/11/23 10:30?? Not Detected?? 11/11/22?? Not Detected?? Chlamydophila pneumoniae RespP-BFire?? 11/11/23 10:30?? Not Detected?? 11/11/22?? Not Detected?? Coronavirus 229E (Not COVID-19) RP-BFire?? 11/11/23 10:30?? Not Detected?? 11/11/22?? Not Detected?? Coronavirus HKU1 (Not COVID-19) RP-BFire?? 11/11/23 10:30?? Not Detected?? 11/11/22?? Not Detected?? Coronavirus NL63 (Not COVID-19) RP-BFire?? 11/11/23 10:30?? Not Detected?? 11/11/22?? Not Detected?? Coronavirus OC43 (Not COVID-19) RP-BFire?? 11/11/23 10:30?? Not Detected?? 11/11/22?? Not Detected?? SARS-CoV-2 (COVID-19) RP-BFire?? 11/11/23 10:30?? Not Detected?? 11/11/22?? Not Detected?? Human Metapneumonovirus RespP-BFire?? 11/11/23 10:30?? Not Detected?? 11/11/22?? Not Detected?? Human Rhinovirus/Enterovirus RespP-BFir?? 11/11/23 10:30?? Not Detected?? 11/11/22?? Not Detected?? Influenza A RespP-BFire?? 11/11/23 10:30?? Not Detected?? 11/11/22?? Not Detected?? Influenza B RespP-BFire?? 11/11/23 10:30?? Not Detected?? 11/11/22?? Not Detected?? Mycomplasma pneumoniae RespP-BFire?? 11/11/23 10:30?? Not Detected?? 11/11/22?? Not Detected?? Parainfluenza Virus 1 RespP-BFire?? 11/11/23 10:30?? Not Detected?? 11/11/22?? Not Detected?? Parainfluenza Virus 2 RespP-BFire?? 11/11/23 10:30?? Not Detected?? 11/11/22?? Not Detected?? Parainfluenza Virus 3 RespP-BFire?? 11/11/23 10:30?? Not Detected?? 11/11/22?? Not Detected?? Parainfluenza Virus 4 RespP-BFire?? 11/11/23 10:30?? Not Detected?? 11/11/22?? Not Detected?? Respiratory Syncytial Virus RespP-BFire?? 11/11/23 10:30?? Not Detected?? 11/11/22?? Not Detected? Electronically Signed on 11/11/23 03:11 PM [facility] department Discharge instructions * THEODORE Contreras: PERFORM Event Display: ED Discharge Information Authored Date: [id number] YVETTE DRAPER :1945 Age:78 years Sex:Female Visit Date:11/11/2023 Primary Care Physician: Mally Vazquez APRN Discharge Instructions We would like to thank you for allowing us to assist you with your healthcare needs. The following includes patient education materials and information regarding your injury/illness. Diagnosis from Today's Visit Dyspnea Acute viral syndrome Discharge Vitals Temperature??(Oral) 98.4 ??F (36.9 ??C) Heart Rate??(Peripheral) 86 Respiratory Rate?? 36 Blood Pressure?? 122/54?? Height?? 64.96 in (165 cm) Weight??(Estimated) 222.70 lb (101 kg) BMI?? 37.1 Allergies Flomax??(Dizziness) narcotic analgesics sulfa drugs??(Rash, Hallucinations) What to Do Next You Need to Schedule the Following Appointments Follow Up with??Mally Vazquez APRN When:??Within 2 to 4 days Why: As we discussed??your chest x-ray does not show any sign of pneumonia.?? You had a??brief episode where your oxygen level was measured to be low.?? Your oxygen is no longer low. ??You are able to ambulate??and maintain a normal oxygen??level.?? You??most likely have a viral illness.?? You may try Mucinex to help with your symptoms. ??You should follow-up closely with your primary care physician.?? Return for worsening in symptoms. Where: [address] [place] [address] [phone] Upcoming Scheduled Appointments Thursday 8:30 AM EST ?? With: Elliott Pacheco MD Where: [facility] Gastroenterology Status: Confirmed Thursday 2:00 PM EST ?? With: Willis Salgado MD Where: [facility] Primary Care [facility] [address] [place] [address]- Status: Confirmed 2023 12:30 PM EST ?? With: Mally Vazquez APRN Where: [facility] Primary Care [facility] [address] [place] [address]- Status: Confirmed You were treated [...] Every evening Duration: 90 Days Unchanged bifidobacterium-lactobacillus (GraphSQL oral capsule) 8 EA, TAKE 1 CAPSULE [...] Oral (given by mouth) Every day Unchanged folic acid (folic acid 1 mg [...] Oral (given by mouth) Every day Unchanged One Touch Ultra Test Strips (Please provide one touch ultra test strips) See instructions Diabetes For blood glucose monitoring once daily. ?? Unchanged ubiquinone (Coenzyme Q10 100 mg oral capsule) 1 Capsules Oral (given by mouth) Every day Education Materials Viral Illness, Adult Viruses are tiny germs that can get into a person's body and cause illness. There are many different types of viruses, and they cause many types of illness. Viral illnesses can range from mild to severe. They can affect various parts of the body. Short-term conditions that are caused by a virus include colds and the flu (influenza). Long-term conditions that are caused by a virus include herpes, shingles, and HIV (human immunodeficiency virus) infection. A few viruses have been linked to certain cancers. What are the causes? Many types of viruses can cause illness. Viruses invade cells in your body, multiply, and cause theinfected cells to work abnormally or . When these cells , they release more of the virus. When this happens, you develop symptoms of the illness, and the virus continues to spread to other cells. If the virus takes over the function of the cell, it can cause the cell to divide and grow out ofcontrol. This happens when a virus causes cancer. Different viruses get into the body in different ways. You can get a virus by: ? Swallowing food or water that has come in contact with the virus (is contaminated). ? Breathing in droplets that have been coughed or sneezed into the air by an infected person. ? Touching a surface that has been contaminated with the virus and then touching your eyes, nose, or mouth. ? Being bitten by an insect or animal that carries the virus. ? Having sexual contact with a person who is infected with the virus. ? Being exposed to blood or fluids that contain the virus, either through an open cut or during a transfusion. If a virus enters your body, your body's defense system (immune system) will try to fight the virus. You may be at higher risk for a viral illness if your immune system is weak. What are the signs or symptoms? You may have these symptoms, depending on the type of virus and the location of the cells that it invades: ? Cold and flu viruses: ? Fever. ? Headache. ? Sore throat. ? Muscle aches. ? Stuffy nose (nasal congestion). ? Cough. ? Digestive system (gastrointestinal) viruses: ? Fever. ? Pain in the abdomen. ? Nausea. ? Diarrhea. ? Liver viruses (hepatitis): ? Loss of appetite. ? Tiredness. ? Skin or the white parts of your eyes turning yellow (jaundice). ? Brain and spinal cord viruses: ? Fever. ? Headache. ? Stiff neck. ? Nausea and vomiting. ? Confusion or sleepiness. ? Skin viruses: ? Warts. ? Itching. ? Rash. ? Sexually transmitted viruses: ? Discharge. ? Swelling. ? Redness. ? Rash. How is this diagnosed? This condition may be diagnosed based on one or more of the following: ? Symptoms. ? Medical history. ? Physical exam. ? Blood test, sample of mucus from your lungs (sputum sample), stool sample, or a swab of body fluidsor a skin sore (lesion). How is this treated? Viruses can be hard to treat because they live within cells. Antibiotic medicines do not treat viruses because these medicines do not get inside cells. Treatment for a viral illness may include: ? Resting and drinking plenty of fluids. ? Medicines to relieve symptoms. These can include qawn-ysb-dyhemuw medicine for pain and fever, medicines for cough or congestion, and medicines to relieve diarrhea. ? Antiviral medicines. These medicines are available only for certain types of viruses. Some viral illnesses can be prevented with vaccinations. A common example is the flu shot. Follow these instructions at home: Medicines ? Take pbyl-wvy-oyxyrgj and prescription medicines only as told by your health care provider. ? If you were prescribed an antiviral medicine, take it as told by your health care provider. Do not stop taking the antiviral even if you start to feel better. ? Be aware of when antibiotics are needed and when they are not needed. Antibiotics do not treat viruses. You may get an antibiotic if your health care provider thinks that you may have, or are at riskfor, a bacterial infection and you have a viral infection. ? Do not ask for an antibiotic prescription if you have been diagnosed with a viral illness. Antibiotics will not make your illness go away faster. ? Frequently taking antibiotics when they are not needed can lead to antibiotic resistance. When thisdevelops, the medicine no longer works against the bacteria that it normally fights. General instructions ? Drink enough fluids to keep your urine pale yellow. ? Rest as much as possible. ? Return to your normal activities as told by your health care provider. Ask your health care provider what activities are safe for you. ? Keep all follow-up visits as told by your health care provider. This is important. How is this prevented? To reduce your risk of viral illness: ? Wash your hands often with soap and water for at least 20 seconds. If soap and water are not available, use hand sat math tutor. ? Avoid touching your nose, eyes, and mouth, especially if you have not washed your hands recently. ? If anyone in your household has a viral infection, clean all household surfaces that may have been in contact with the virus. Use soap and hot water. You may also use bleach that you have added waterto (diluted). ? Stay away from people who are sick with symptoms of a viral infection. ? Do not share items such as toothbrushes and water bottles with other people. ? Keep your vaccinations up to date. This includes getting a yearly flu shot. ? Eat a healthy diet and get plenty of rest. Contact a health care provider if: ? You have symptoms of a viral illness that do not go away. ? Your symptoms come back after going away. ? Your symptoms get worse. Get help right away if you have: ? Trouble breathing. ? A severe headache or a stiff neck. ? Severe vomiting or pain in your abdomen. These symptoms may represent a serious problem that is an emergency. Do not wait to see if the symptoms will go away. Get medical help right away. Call your local emergency services (911 in the [place] Do not drive yourself to the hospital. Summary ? Viruses are types of germs that can get into a person's body and cause illness. Viral illnesses canrange from mild to severe. They can affect various parts of the body. ? Viruses can be hard to treat. There are medicines to relieve symptoms, and there are some antiviralmedicines. ? If you were prescribed an antiviral medicine, take it as told by your health care provider. Do not stop taking the antiviral even if you start to feel better. ? Contact a health care provider if you have symptoms of a viral illness that do not go away. This information is not intended to replace advice given to you by your health care provider. Make sure you discuss any questions you have with your health care provider. Document Revised: 03/11/2021 Document Reviewed: 09/04/2020 [employer] Patient Education ?? 2022 [employer] Shortness of Breath, Adult Shortness of breath is when a person has trouble breathing or when a person feels like she or he ishaving trouble breathing in enough air. Shortness of breath could be a sign of a medical problem. Follow these instructions at home: Pollutants ? Do not use any products that contain nicotine or tobacco. These products include cigarettes, chewing tobacco, and vaping devices, such as e-cigarettes. This also includes cigars and pipes. If you need help quitting, ask your health care provider. ? Avoid things that can irritate your airways, including: ? Smoke. This includes campfire smoke, forest fire smoke, and secondhand smoke from tobacco products.Do not smoke or allow others to smoke in your home. ? Mold. ? Dust. ? Air pollution. ? Chemical fumes. ? Things that can give you an allergic reaction (allergens) if you have allergies. Common allergens include pollen from grasses or trees and animal dander. ? Keep your living space clean and free of mold and dust. General instructions ? Pay attention to any changes in your symptoms. ? Take zxpr-aiy-umwpvrn and prescription medicines only as told by your health care provider. This includes oxygen therapy and inhaled medicines. ? Rest as needed. ? Return to your normal activities as told by your health care provider. Ask your health care provider what activities are safe for you. ? Keep all follow-up visits. This is important. Contact a health care provider if: ? Your condition does not improve as soon as expected. ? You have a hard time doing your normal activities, even after you rest. ? You have new symptoms. ? You cannot walk up stairs or exercise the way that you normally do. Get help right away if: ? Your shortness of breath gets worse. ? You have shortness of breath when you are resting. ? You feel light-headed or you faint. ? You have a cough that is not controlled with medicines. ? You cough up blood. ? You have pain with breathing. ? You have pain in your chest, arms, shoulders, or abdomen. ? You have a fever. These symptoms may be an emergency. Get help right away. Call 911. ? Do not wait to see if the symptoms will go away. ? Do not drive yourself to the hospital. Summary ? Shortness of breath is when a person has trouble breathing enough air. It can be a sign of a medical problem. ? Avoid things that irritate your lungs, such as smoking, pollution, mold, and dust. ? Pay attention to changes in your symptoms and contact your health care provider if you have a hard time completing daily activities because of shortness of breath. This information is not intended to replace advice given to you by your health care provider. Make sure you discuss any questions you have with your health care provider. Document Revised: 06/14/2022 Document Reviewed: 06/14/2022 [employer] Patient Education ?? 2022 [employer] Tests Performed Radiology XR Chest 1 View 11/11/2023 11:07 EST Medications and Immunizations Administered Given Sodium Chloride 0.9%, 1000 mL, Hydration Bolus Lab Test Name Test Result Date/Time WBC 9.2 K/mcL 11/11/2023 10:58 EST RBC 3.24 Million/mcL 11/11/2023 10:58 EST Hgb 9.4 g/dL 11/11/2023 10:58 EST Hct 29.1 % 11/11/2023 10:58 EST MCV 89.9 fL 11/11/2023 10:58 EST MCH 29.1 pg 11/11/2023 10:58 EST MCHC 32.4 g/dL 11/11/2023 10:58 EST RDW-CV 15.4 % 11/11/2023 10:58 EST Platelets 245 K/mcL 11/11/2023 10:58 EST MPV 9.5 fL 11/11/2023 10:58 EST Neutro Auto 79.3 % 11/11/2023 10:58 EST Lymph Auto 8.6 % 11/11/2023 10:58 EST Turner Auto 10.7 % 11/11/2023 10:58 EST Eos, Auto 0.70 % 11/11/2023 10:58 EST Basophil Auto 0.7 % 11/11/2023 10:58 EST Neutro Absolute 7.3 K/mcL 11/11/2023 10:58 EST Lymph Absolute 0.8 K/mcL 11/11/2023 10:58 EST Turner Absolute 1.0 K/mcL 11/11/2023 10:58 EST Eos Absolute 0.1 K/mcL 11/11/2023 10:58 EST Baso Absolute 0.1 K/mcL 11/11/2023 10:58 EST Sodium Level 139 mmol/L 11/11/2023 10:58 EST Potassium Level 4.2 mmol/L 11/11/2023 10:58 EST Chloride Level 102 mmol/L 11/11/2023 10:58 EST CO2 27 mmol/L 11/11/2023 10:58 EST Alk Phos 63 IntlUnit/L 11/11/2023 10:58 EST AST 15 IntlUnit/L 11/11/2023 10:58 EST ALT 9 IntlUnit/L 11/11/2023 10:58 EST BUN 35 mg/dL 11/11/2023 10:58 EST Glucose Level 237 mg/dL 11/11/2023 10:58 EST Creatinine Level 1.80 mg/dL 11/11/2023 10:58 EST BUN/Creat Ratio 19.4 11/11/2023 10:58 EST eGFR CKD-EPI 28 mL/min/1.73 m2 11/11/2023 10:58 EST Calcium Level 9.1 mg/dL 11/11/2023 10:58 EST Protein Total 7.5 g/dL 11/11/2023 10:58 EST Albumin Level 3.7 g/dL 11/11/2023 10:58 EST Globulin 3.8 g/dL 11/11/2023 10:58 EST A/G Ratio 1.0 g/dL 11/11/2023 10:58 EST Bilirubin Total 1.3 mg/dL 11/11/2023 10:58 EST Anion Gap 10.0 11/11/2023 10:58 EST Lactic Acid Lvl 1.2 mmol/L 11/11/2023 14:15 EST Osmolality 293 mOsm/kg 11/11/2023 10:58 EST BNP 156 pg/mL 11/11/2023 10:58 EST Troponin-I HS 13 ng/L 11/11/2023 12:33 EST Urine Srce Clean Catch 11/11/2023 10:44 EST UA Color YELLOW. 11/11/2023 10:44 EST UA Appear CLEAR. 11/11/2023 10:44 EST UA Glucose >=1000 11/11/2023 10:44 EST UA Bili NEGATIVE 11/11/2023 10:44 EST UA Ketones NEGATIVE 11/11/2023 10:44 EST UA Spec Grav 1.010 11/11/2023 10:44 EST UA Blood TRACE 11/11/2023 10:44 EST UA pH 5.50 11/11/2023 10:44 EST UA Protein NEGATIVE 11/11/2023 10:44 EST UA Urobilinogen 0.2 11/11/2023 10:44 EST UA Nitrite NEGATIVE 11/11/2023 10:44 EST UA Leuk Est SMALL Clinitek 11/11/2023 10:44 EST UA Culture Ind?. Yes 11/11/2023 10:44 EST UA WBC 10-25 11/11/2023 10:44 EST UA RBC 0-3 11/11/2023 10:44 EST UA Squam Epithelial 0-3 11/11/2023 10:44 EST UA Trans Epi 0-3 11/11/2023 10:44 EST UA Bacteria 1+ 11/11/2023 10:44 EST UA Hyal Cast 0-3 11/11/2023 10:44 EST Adenovirus RespP-BFire Not Detected BF 11/11/2023 10:30 EST Bordetella parapertussis RespP-BFire Not Detect-BioFire 11/11/2023 10:30 EST Bordetella pertussis RespP-BFire Not Detect-BioFire 11/11/2023 10:30 EST Chlamydophila pneumoniae RespP-BFire Not Detect-BioFire 11/11/2023 10:30 EST Coronavirus 229E (Not COVID-19) RP-BFire Not Detect-BioFire 11/11/2023 10:30 EST Coronavirus HKU1 (Not COVID-19) RP-BFire Not Detect-BioFire 11/11/2023 10:30 EST Coronavirus NL63 (Not COVID-19) RP-BFire Not Detect-BioFire 11/11/2023 10:30 EST Coronavirus OC43 (Not COVID-19) RP-BFire Not Detect-BioFire 11/11/2023 10:30 EST SARS-CoV-2 (COVID-19) RP-BFire Not Detect-BioFire 11/11/2023 10:30 EST Human Metapneumonovirus RespP-BFire Not Detect-BioFire 11/11/2023 10:30 EST Human Rhinovirus/Enterovirus RespP-BFir Not Detect-BioFire 11/11/2023 10:30 EST Influenza A RespP-BFire Not Detect-BioFire 11/11/2023 10:30 EST Influenza B RespP-BFire Not Detect-BioFire 11/11/2023 10:30 EST Mycomplasma pneumoniae RespP-BFire Not Detect-BioFire 11/11/2023 10:30 EST Parainfluenza Virus 1 RespP-BFire Not Detect-BioFire 11/11/2023 10:30 EST Parainfluenza Virus 2 RespP-BFire Not Detect-BioFire 11/11/2023 10:30 EST Parainfluenza Virus 3 RespP-BFire Not Detect-BioFire 11/11/2023 10:30 EST Parainfluenza Virus 4 RespP-BFire Not Detect-BioFire 11/11/2023 10:30 EST Respiratory Syncytial Virus RespP-BFire Not Detect-BioFire 11/11/2023 10:30 EST Patient/Pheresis Specialist Signature Patient Name:YVETTE DRAPER I have received this information and my questions have been answered. Patient/Pheresis Specialist Name: Patient/Pheresis Specialist Signature: Relationship to Patient: Witness Name/Signature: Date: Electronically Signed on: 11/11/2023 15:04 ESTSigned by: Patient Care team information Care Team Personnel Name: Sanaz Fang APRN, Position: Physician Member Role: Nurse Practitioner Address: Address: [address] [place] [address] Name: Anabel Hallman APRN Position: Physician Member Role: Nurse Practitioner Address: Address: [address] [place] [place] [address] Name: Mally Vazquez APRN Position: Physician Member Role: Primary Care Physician Address: Address: [address] [place] [address] Name: THEODORE Contreras Position: Physician Member Role: Physician Residential Air Sealing Technician Address: Address: [address] [place] [address] Name: Jeanette Dean Position: Nurse Member Role: Registered Nurse Care Team Related Persons Name: LAURA LEON
--- OUTSIDE RECORDS SUMMARY | 2024-04-25 04:09 | XMS_ITS | Continuity of Care Document ---
Author Name Unknown Organization [facility] Address [address] [place] [address] Care Team Providers Care Music Instructor Name Role Phone Belgica Farr MD Primary Care Physician [phone] Encounter [facility] NBR [id number] Date(s): 09/24/22 - 09/24/22 [facility] [address] [place], [place] [address] Encounter Diagnosis History of total knee arthroplasty(Discharge Diagnosis) - 09/24/22 Discharge Disposition: Home or Self Care Attending Physician: Govind Shah Admitting Physician: Katlyn Peoples DO Referring Physician: Katlyn Peoples DO Allergies, Adverse Reactions, Alerts Substance Reaction Severity Status sulfa drugs Rash Hallucinations Unknown Active Flomax Dizziness Unknown Active Assessment and Plan Future Appointments Functional Status 09/24/22 Recent Travel History No recent travel Other [...] Range]: 1 Peripheral Pulse Rate [60-100 bpm] 72 bp m (09/24/22 12:10 PM) Blood Pressure [90-140/60-90 mmHg] 128/7 6mmHg (09/24/22 12:10 PM) Weight 104.33 kg (09/24/22 12:10 PM) Weight Measured (lbs) 230.008 lb (09/24/22 12:10 PM) Height 165.10 cm (09/24/22 12:10 PM) Height/Length Measured (inches) 65 inch (09/24/22 12:10 PM) BSA Measured 2.19 m2 (09/24/22 12:10 PM) Body Mass Index 38.27 kg/m2 (09/24/22 12:10 PM) Social History Social History Type Response Tobacco Never tobacco user T obacco Use:. 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 Katlyn Peoples, 08/12/22 Non Biological Knee L Device Identifier Serial Number Lot or Batch Number Manufacturing Date Expiration Date Distinct Identification Code MRI Safety Implantable Status Assigning Authority Unknown NA [id number] Unknown 08/07/24 Unknown Unknown Active Unknown Unknown N/A [id number] 2 Unknown 06/10/32 Unknown Unknown Active Unknown Unknown NA [id number] 1 Unknown 04/01/27 Unknown Unknown Active Unknown Unknown N/A [id number] 2 Unknown 12/07/31 Unknown Unknown Active Unknown Unknown N/A [id number] 2 Unknown 12/15/26 Unknown Unknown Active Unknown Physician Outpatient Note * Katlyn Peoples, DO: PERFORM, MODIFY Event Display: Office Clinic Note Physician Authored Date: [id number] YVETTE DRAPER :1945 Age:77 years Sex:Female Visit Date:09/24/2022 Primary Care Physician: eBlgica Farr MD Chief Complaint s/p left TKA History of Present Illness 6 weeks status post left total knee that was complicated with mental status change for approximately 1 week.?? She presents today for routine 6-week follow- up.?? She states the left knee is coming along well.?? She is continue with physical therapy here.?? Her mental status change resolved.?? Internal medicine was unable to pinpoint any definitive cause.?? But it is good to see that she has returned to her baseline. Physical Exam Vitals & Measurements HR:??72??(Peripheral)?? BP:??128/76?? SpO2:??96%?? HT:??165.10??cm?? WT:??104.33??kg?? BMI:??38.27?? BSA:??2.19?? Physical exam she ambulates into the office unassisted with a normal gait.?? Left knee midline incision nicely healed.?? She has full extension.?? She is flexing about 115 degrees.?? Good ligamentousstability neurovascular intact distally.?? X-rays look good on the [facility]i system. Assessment/Plan 1.??History of total knee arthroplasty??Z96.659 Left total knee arthroplasty that was complicated with postop mental status change doing very well at this point.?? She is going to finish up her physical therapy.?? Reasonable expectations and precautions reviewed. Problem List/Past Medical History Ongoing Acquired hypothyroidism Altered bowel habits Amaurosis fugax Anemia of chronic disorder Anemia, hemolytic Aortic valve stenosis, mild Arthritis of right acromioclavicular joint Asthma Autoimmune hemolytic anemia, unspecified Cardiomyopathy, dilated [...] Xerostomia Historical GERD - Gastro-esophageal reflux disease Medications acetaminophen 325 mg oral tablet, 650 mg= 2 tab, Oral, every 6 hr, PRN Acidophilus Probiotic Blend, 1 cap, Oral, Daily alendronate 70 mg oral tablet, 70 mg= 1 tab, Oral, every week Aspirin Enteric Coated, 325 mg= 1 tab, Oral, BID atorvastatin 10 mg oral tablet, 10 mg= 1 tab, Oral, every evening calcium (as carbonate)-vitamin D 600 mg-200 intl units oral tablet, 1 tab, Oral, Daily cephalexin 500 mg oral capsule, 500 mg= 1 cap, Oral, QID citalopram 20 mg oral tablet, 20 mg= 1 tab, Oral, every morning Coenzyme Q10 100 mg oral capsule, 100 mg= 1 cap, Oral, Daily docusate sodium 100 mg oral capsule, 100 mg= 1 cap, Oral, BID, PRN furosemide 40 mg oral tablet, 40 mg= 1 tab, Oral, every morning gabapentin 300 mg oral capsule, 300 mg= 1 cap, Oral, BID ipratropium-albuterol 0.5 mg-2.5 mg/3 mL inhalation solution, 3 mL, NEB, every 4 hr, PRN lansoprazole 30 mg oral delayed release capsule, 30 mg= 1 cap, Oral, every morning levothyroxine 137 mcg (0.137 mg) oral tablet, 137 mcg= 1 tab, Oral, With Morning Meal losartan 50 mg oral tablet, 50 mg= 1 tab, Oral, every morning metFORMIN 500 mg oral tablet, 500 mg= 1 tab, Oral, every evening metoprolol tartrate 50 mg oral tablet, 50 mg= 1 tab, Oral, BID multivitamin adult, oral tablet, 1 tab, Oral, Daily Senna Lax 8.6 mg oral tablet, 17.2 mg= 2 tab, Oral, every night at bedtime, PRN Allergies Flomax??(Dizziness) sulfa drugs??(Rash, Hallucinations) Electronically Signed on 09/24/22 01:05 PM Katlyn Peoples, Patient Care team information Personnel Name: Belgica Farr MD Address: Address: [facility] [address] [place] [address]
--- OUTSIDE RECORDS SUMMARY | 2024-04-25 04:09 | XMS_ITS | Continuity of Care Document ---
Author Name Unknown Organization [facility] Address [address] [place] [address] Care Team Providers Care Cosmetic Dentist Name Role Phone Taylor FELIMally Ronda Primary Care Physician Encounter [facility] NBR [id number] Date(s): 02/10/24 - 02/10/[address] [phone] Discharge Disposition: Home or Self Care Attending Physician: Sanaz Fang DENTAL SALES REPRESENTATIVE, Admitting Physician: Sanaz Fang APRN, Allergies, Adverse Reactions, Alerts Substance Reaction Severity [...] 08/02/22 Recorded 1Result Comment: RD done at [facility] Lot: [id number] exp: 05/08/2023 [employer] 2Result Comment: Lot: [id number] Exp: 06/08/23 LD done at [facility] Medications Acidophilus 1 tab, Oral, every morning Start Date: 11/15/23 Status: Ordered Albuterol (Eqv-Proventil HFA) 90 mcg/inh inhalation aerosol 1 puffs, Inhale, every 4 hr, PRN as needed for wheezing, Do not exceed 12 inhalations in a 24-hour period., # 3 EA, 2 Refill(s), Pharmacy: [facility], 165, cm, 12/02/23 18:39:00 EST, [...] taking., # 12 tab, 1 Refill(s), Pharmacy: [facility], 170, cm, 11/11/22 12:19:00 EST, Height/Length Dosing, 96, kg, 11/11/22 12:19:00 EST, Weight Dosing Start Date: 07/21/23 Stop Date: 01/05/24 Status: Ordered atorvastatin 10 mg oral tablet 10 mg = 1 tab, Oral, every evening, # 90 tab, 3 Refill(s), Pharmacy: [facility],114.09, cm, 08/12/22 16:18:00 EDT, Height/Length [...] BID, # 60 tab, 0 Refill(s), Pharmacy: [id number], 165, cm, 11/24/23 16:14:00 EST, [...] morning, # 30 tab, 3 Refill(s), Pharmacy: [id number], 165.1, cm, 11/14/23 22:52:00 EST, [...] stomach, # 90 tab, 3 Refill(s), Pharmacy: [facility], 170, cm, 11/11/22 12:19:00 EST, Height/Length Dosing, 96, kg, 11/11/22 12:19:00 EST, Weight Dosing Start Date: 04/14/23 Status: Ordered melatonin 3 mg oral tablet 6 mg = 2 tab, Oral, every evening, 0 Refill(s) Start Date: 12/17/23 Status: Ordered metoprolol tartrate 25 mg oral tablet 25 mg = 1 tab, Oral, BID, # 180 tab, 3 Refill(s), Pharmacy: [facility], 170, cm,11/11/22 12:19:00 EST, Height/Length [...] Exam Date Time Procedure Performing Provider Status 02/10/24 11:41 AM XR Shoulder Complete 2+ Views Left Twan Schulz (Verified) Notes: (XR Shoulder Complete 2+ Views Left) Reason For Exam: Left shoulder pain XR Shoulder Complete 2+ Views Left EXAM DESCRIPTION: XR Shoulder Complete 2+ Views Left 02/10/2024 INDICATION: LEFT SHOULDER PAIN COMPARISON: 01/06/2023 IMPRESSION: No acute fracture or dislocation 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 and humeral head osteophyte formation as described previously AC joint osteoarthritic changes with joint space narrowing and mild osteophyte formation No focal lytic or sclerotic lesion. JOB #: [id number] Final Signed by: Kishore Parra MD Signed (Electronic Signature): 02/10/2024 11:55 am Social History Social History Type Response Tobacco Never tobacco user T obacco Use:. 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 Prateekemiliana Richelle, DO 08/12/22 Non Biological Knee L Device Identifier Serial Number Lot or Batch Number Manufacturing Date Expiration Date Distinct Identification Code MRI Safety Implantable Status Assigning Authority Unknown NA [id number] Unknown 08/07/24 Unknown Unknown Active Unknown Unknown N/A [id number] 2 Unknown 06/10/32 Unknown Unknown Active Unknown Unknown NA [id number] 1 Unknown 04/01/27 Unknown Unknown Active Unknown Unknown N/A [id number] 2 Unknown 12/07/31 Unknown Unknown Active Unknown Unknown N/A [id number] 2 Unknown 12/15/26 Unknown Unknown Active Unknown Patient Care team information Care Team Personnel Name: Sanaz Fang APRN, Position: Physician Member Role: Nurse Practitioner Address: Address: [address] [place] [address] Name: Anabel Hallman APRN Position: Physician Member Role: Nurse Practitioner Address: Address: [address] [place] [address] Name: Mally Vazquez APRN Position: Physician Member Role: Primary Care Physician Address: Address: [address] [place] [address] [place] Care Team Related Persons Name: LAURA LEON
--- OUTSIDE RECORDS SUMMARY | 2024-04-25 04:09 | XMS_ITS | Continuity of Care Document ---
Author Name Unknown Organization [facility] Address [address] [place] [address] Care Team Providers Care Slitter And Cutter Operator Name Role Phone Belgica Farr MD Primary Care Physician Encounter [facility] NBR [id number] Date(s): 08/27/22 - 08/27/22 [facility] [address] [place], [place] [address] Encounter Diagnosis S/P total knee arthroplasty(Discharge Diagnosis) - 08/27/22 Discharge Disposition: Home or Self Care Attending Physician: Sanaz Fang FIELD ASSOCIATE, Allergies, Adverse Reactions, Alerts Substance Reaction Severity Status sulfa drugs Rash Hallucinations Unknown Active Flomax Dizziness Unknown Active Assessment and Plan Future Appointments Functional Status 08/27/22 Other exposure to Infectious Disease Non e [...] Oral, Daily Start Date: 08/11/22 Status: Ordered furosemide 40 mg oral tablet [...] List Condition Confirmation Course Effective Dates Status H ealth Status Informant Asthma Confirmed Active Coronary artery disease Confirmed Active Diabetes mellitus type 2 Confirmed Active Hypertension Confirmed Active Hypothyroidism Confirmed Active Mitral valve disorder Confirmed Active NHL - Non-Hodgkin's lymphoma Confirmed Active Sleep apnea Confirmed Active Thrombocytopenic purpura Confirmed Active Procedures Procedure Date Related Diagnosis Body Site Status Arthroplasty Knee (Left) 1 08/12/22 Completed 1auto-populated from documented surgical case Vital Signs Most recent to oldest [Reference Range]: 1 Peripheral Pulse Rate [60-100 bpm] 73 bp m (08/27/22 12:00 PM) Systolic Blood Pressure [90-140 mmHg] 15 2 mmHg *HI* (08/27/22 12:00 PM) Weight 124.28 kg (08/27/22 12:00 PM) Weight Measured (lbs) 273.99 lb (08/27/22 12:00 PM) Height 165.10 cm (08/27/22 12:00 PM) Height/Length Measured (inches) 65 inch (08/27/22 12:00 PM) BSA Measured 2.39 m2 (08/27/22 12:00 PM) Body Mass Index 45.59 kg/m2 (08/27/22 12:00 PM) Social History Social History Type Response Tobacco Never tobacco user T obacco Use:. 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 Katlyn Peoples DO 08/12/22 Non Biological Knee L Device Identifier Serial Number Lot or Batch Number Manufacturing Date Expiration Date Distinct Identification Code MRI Safety Implantable Status Assigning Authority Unknown NA [id number] Unknown 08/07/24 Unknown Unknown Active Unknown Unknown N/A [id number] 2 Unknown 06/10/32 Unknown Unknown Active Unknown Unknown NA [id number] 1 Unknown 04/01/27 Unknown Unknown Active Unknown Unknown N/A [id number] 2 Unknown 12/07/31 Unknown Unknown Active Unknown Unknown N/A [id number] 2 Unknown 12/15/26 Unknown Unknown Active Unknown Hospital Discharge Instructions Follow Up Care 08/20/2022 18:24:05 With:Katlyn Peoples DO Address: [address] [place] [address] When:Within 4 Week(s) Comments:6 WEEK F/U S/P L TKA (X-RAY FIRST) Patient Care team information Personnel Name: Belgica Farr MD Address: Address: [facility] [address] [place], [place] [address]
--- OUTSIDE RECORDS SUMMARY | 2024-04-25 04:09 | XMS_ITS | Continuity of Care Document ---
Author Name Unknown Organization [facility] Ambulatory Clinics Address [address] [place] [address] Care Team Providers Care Science Faculty Member Name Role Phone Mally Vazquez APRN Primary Care Physician [phone] Encounter [facility] NBR [id number] Date(s): 03/24/23 - 03/24/23 [facility] Ambulatory Clinics [address] [place], [place] [address] Encounter Diagnosis Left shoulder pain(Discharge Diagnosis) - 03/24/23 Osteoarthritis of left shoulder(Discharge Diagnosis) - 03/24/23 Adhesive capsulitis of left shoulder(Discharge Diagnosis) - 03/24/23 Adhesive capsulitis of left shoulder(Final) - Pain in left shoulder(Final) - Primary osteoarthritis, left shoulder(Final) - Discharge Disposition: Home or Self Care Attending Physician: Tianna Cotter DO Referring Physician: Mally Vazquez APRN Allergies, Adverse Reactions, Alerts Substance Reaction Severity Status narcotic analgesics Unknown Active sulfa drugs Rash Hallucinations Unknown Active Flomax Dizziness Unknown Active Assessment and Plan Future Appointments Functional Status 03/24/23 Other exposure to Infectious Disease Non e Immunizations Given and Recorded Vaccine Date Status Refusal Reason influenza virus vaccine, inactivated 1 08/02/22 Re corded SARS-CoV-2 mRNA (tozinameran 12y+) bival 2 08/02/22 Recorded 1Result Comment: RD done at [place] Lot: [id number] exp: 05/08/2023 Sanofi 2Result Comment: Lot: [id number] Exp: 06/08/23 LD done at [place] Medications Acidophilus Probiotic Blend 1 cap, Oral, Daily, 0 Refill(s) Start Date: 08/11/22 Status: Ordered Albuterol (Eqv-Proventil HFA) 90 mcg/inh inhalation aerosol 1 puffs, Inhale, every 4 hr, PRN as needed for wheezing, Do not exceed 12 inhalations in a 24-hour period., # 1 EA, 0 Refill(s), Pharmacy: [id number], 170, cm, 11/11/22 12:19:00 EST, [...] taking., # 12 tab, 1 Refill(s), Pharmacy: [facility]... Start Date: 02/03/23 Stop Date: 07/21/23 Status: Ordered aspirin 81 mg oral delayed release tablet 81 mg = 1 tab, Oral, Daily, # 30 tab, 0 Refill(s) Start Date: 01/05/23 Status: Ordered atorvastatin 10 mg oral tablet 10 mg = 1 tab, Oral, every evening, # 90 tab, 3 Refill(s), Pharmacy: [facility],114.09, cm, 08/12/22 16:18:00 EDT, Height/Length [...] 03/24/2023, # 90 tab, 0 Refill(s), Pharmacy: [id number], 170, cm, 11/11/22 12:19:00 EST, Height/Length Dosing, 96, kg, 11/11/22 12:19:00 EST, Weight Dosing Start Date: 03/09/23 Status: Ordered Coenzyme Q10 100 mg oral capsule 100 mg = 1 cap, Oral, Daily Start Date: 08/11/22 Status: Ordered furosemide 40 mg oral tablet 40 mg = 1 tab, Oral, every morning, # 90 tab, 3 Refill(s), Pharmacy: [facility],114.09, cm, 08/12/22 16:18:00 EDT, Height/Length [...] Daily, # 90 tab, 3 Refill(s), Pharmacy: [facility], 114.09, cm, 08/12/22 16:18:00 EDT, Height/Length Dosing, 165, kg, 08/12/22 16:18:00 EDT, Weight Dosing Start Date: 10/24/22 Stop Date: 10/19/23 Status: Ordered metFORMIN 500 mg oral tablet 500 mg = 1 tab, Oral, every evening, # 90 tab, 3 Refill(s), Pharmacy: [facility], 114.09, cm, 08/12/22 16:18:00 EDT, Height/Length Dosing, 165, kg, 08/12/22 16:18:00 EDT, Weight Dosing Start Date: 10/24/22 Stop Date: 10/19/23 Status: Ordered metoprolol tartrate 25 mg oral tablet 25 mg = 1 tab, Oral, BID, # 180 tab, 3 Refill(s), Pharmacy: [facility], 114.09, cm, 08/12/22 16:18:00 EDT, [...] Temperature Temporal Artery [36-38 Deg C ] 36.2 Deg C (03/24/23 4:16 PM) Peripheral Pulse Rate [60-100 bpm] 65 bp m (03/24/23 4:16 PM) Blood Pressure [90-140/60-90 mmHg] 132/7 0mmHg (03/24/23 4:16 PM) Weight 97.2 kg (03/24/23 4:16 PM) Weight Measured (lbs) 214.289 lb (03/24/23 4:16 PM) Social History Social History Type Response Tobacco Never tobacco user T obacco Use:. 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 Katlyn Hallman, DO 08/12/22 Non Biological Knee L Device Identifier Serial Number Lot or Batch Number Manufacturing Date Expiration Date Distinct Identification Code MRI Safety Implantable Status Assigning Authority Unknown NA [id number] Unknown 08/07/24 Unknown Unknown Active Unknown Unknown N/A [id number] 2 Unknown 06/10/32 Unknown Unknown Active Unknown Unknown NA [id number] 1 Unknown 04/01/27 Unknown Unknown Active Unknown Unknown N/A [id number] 2 Unknown 12/07/31 Unknown Unknown Active Unknown Unknown N/A [id number] 2 Unknown 12/15/26 Unknown Unknown Active Unknown Physician Outpatient Note * Tianna Cotter, DO: PERFORM, MODIFY, MODIFY Event Display: Office Clinic Note Physician Authored Date: [id number] 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 Henrietta??is seen today??for evaluation of left shoulder pain.?? She states that she had shoulder pain about 3 years ago and had an injection with??Vinny??which provided significant relief until last spring.?? In the spring 2021, she fell and landed on her right side and injured her right shoulder.??She was working with physical therapy on right shoulder range of motion with improvement in pain??and ROM. ??However, because she was??relying on her left shoulder/arm while recovering from the rightshoulder??injury, her left shoulder started to become aggravated again.?? She is left-handed. ?? Range of motion??of the left shoulder is very limited??which impairs ADLs including washing and brushing her hair ?? She denies neck pain, there is slight radiation of the shoulder pain to the upper part of the arm but otherwise denies pain to the forearm or hand She denies numbness and tingling in the upper extremity Pain level is 0/10 at rest. ??When using left shoulder pain level can increase to 8/10 She reports a crunching sound with movement of the left shoulder Review of Systems Denies neck pain, denies arm pain extending to the forearm or hand, denies arm numbness or tingling, denies??hand weakness, denies changes in bowel or bladder control or saddle anesthesia. Physical Exam Vitals & Measurements T:??36.2?C ??(Temporal Artery)?? HR:??65??(Peripheral)?? BP:??132/70?? SpO2:??96%?? WT:??97.2??kg?? General: Appears comfortable??at rest?? HEENT: Facial movements symmetric Resp: Breathing comfortably, unlabored respirations Cervical ROM: Mildly??limited range of motion of the cervical spine without discomfort No tenderness to palpation of the??cervical paraspinal muscles Neuro: Motor:Strength is 5 out of 5 in the upper extremities??bilaterally including shoulder abduction, elbow flexion/extension, wrist extension, finger flexion??and intrinsics.?? With testing shoulder abduction she does not have good??range of motion although she is able to??provide full resistance??on te sting. Sensation:Intact to light touch in the upper??extremities bilaterally Reflexes: 1+ bilateral biceps, triceps, BR.??Valera's negative b/l.?? Shoulder:??Abduction of the left shoulder to about 30 degrees with active??abduction, passively shoulder abduction and increases to about 45 degrees.?? Empty can test positive. Gait:??Steady, clears toes Assessment/Plan Adhesive capsulitis of left shoulder??M75.02 Left shoulder pain??M25.512 Osteoarthritis of left shoulder??M19.012 ?? Henrietta reports excellent relief from a prior left??shoulder injection performed by Vinny severalyears ago. She was hoping to get a repeat injection. ??She does have very limited range of motion of the??left shoulder and x-rays in December 2022 showed??glenohumeral??and AC joint arthritic changes. ??She would likely benefit from a repeat shoulder injection. ??She is currently working with physical therapy and encouraged her to continue with the exercises and stretches to maintain ROM and??prevent frozen shoulder.?? Current symptoms do not appear to be consistent with??cervical radicular pain. ??Informed Henrietta that I will place a referral??to orthopedics??for consideration of a shoulderinjection as I do not perform shoulder injections. She expressed understanding. Images Xray left shoulder reviewed ?? Problem List/Past Medical History Ongoing Acquired hypothyroidism [...] abdominal hysterectomy and bilateral salpingo-oophorectomy Medications Inpatient No active inpatient medications Home Acidophilus Probiotic Blend, 1 cap, Oral, Daily [...] capsule, 100 mg= 1 cap, Oral, Daily furosemide 40 mg oral tablet, 40 mg= [...] adult, oral tablet, 1 tab, Oral, Daily Allergies Flomax??(Dizziness) narcotic analgesics sulfa drugs??(Rash, Hallucinations) Social History Alcohol Past Electronic Cigarette/Vaping Electronic Cigarette Use: Never. Employment/School Retired Home/Environment Lives with Alone, Son Josias stays at her house when needed. . Living situation: Home with assistance. Home equipment: Walker. Tobacco Never tobacco user Tobacco Use:. Family History Breast cancer: Mother and Aunt/Uncle. Cancer: Son. Heart: Mother and Father. Electronically Signed on 03/24/23 04:49 PM Tianna Cotter DO Patient Care team information Care Team Personnel Name: Sanaz Fang APRN, Position: Physician Member Role: Nurse Practitioner Address: Address: [address] [place] [address] Name: Anabel Hallman APRN Position: Physician Member Role: Nurse Practitioner Address: Address: [address] [place] [address] Name: Mally Vazquez APRN Position: Physician Member Role: Primary Care Physician Address: Address: [address] [place] [address] Care Team Related Persons Name: LAURA LEON Address: Home
--- OUTSIDE RECORDS SUMMARY | 2024-04-25 04:09 | XMS_ITS | Continuity of Care Document ---
Author Name Unknown Organization [facility] Address [address] [place] [address] Care Team Providers Care Logging Shovel Operator Name Role Phone Taylor FELI Mally Ronda Primary Care Physician Encounter [facility] NBR [id number] Date(s): 01/11/24 - 01/11/[address] [id number] Encounter Diagnosis Type 2 diabetes mellitus without complications(Final) - Discharge Disposition: Home or Self Care Attending Physician: Mamadou Redmond DO Admitting Physician: Mamadou Redmond DO Referring Physician: Mamadou Redmond DO Allergies, Adverse Reactions, Alerts Substance Reaction [...] 08/02/22 Recorded 1Result Comment: RD done at [place] Lot: [id number] exp: 05/08/2023 Sanofi 2Result Comment: Lot: [id number] Exp: 06/08/23 LD done at [place] Medications Acidophilus 1 tab, Oral, every morning Start Date: 11/15/23 Status: Ordered Albuterol (Eqv-Proventil HFA) 90 mcg/inh inhalation aerosol 1 puffs, Inhale, every 4 hr, PRN as needed for wheezing, Do not exceed 12 inhalations in a 24-hour period., # 3 EA, 2 Refill(s), Pharmacy: [facility], 165, cm, 12/02/23 18:39:00 EST, [...] taking., # 12 tab, 1 Refill(s), Pharmacy: [facility], 170, cm, 11/11/22 12:19:00 EST, Height/Length Dosing, 96, kg, 11/11/22 12:19:00 EST, Weight Dosing Start Date: 07/21/23 Stop Date: 01/05/24 Status: Ordered atorvastatin 10 mg oral tablet 10 mg = 1 tab, Oral, every evening, # 90 tab, 3 Refill(s), Pharmacy: [facility],114.09, cm, 08/12/22 16:18:00 EDT, Height/Length [...] BID, # 60 tab, 0 Refill(s), Pharmacy: [id number], 165, cm, 11/24/23 16:14:00 EST, [...] morning, # 30 tab, 3 Refill(s), Pharmacy: [facility] #[id number], 165.1, cm, 11/14/23 22:52:00 EST, [...] stomach, # 90 tab, 3 Refill(s), Pharmacy: [facility], 170, cm, 11/11/22 12:19:00 EST, Height/Length Dosing, 96, kg, 11/11/22 12:19:00 EST, Weight Dosing Start Date: 04/14/23 Status: Ordered melatonin 3 mg oral tablet 6 mg = 2 tab, Oral, every evening, 0 Refill(s) Start Date: 12/17/23 Status: Ordered metoprolol tartrate 25 mg oral tablet 25 mg = 1 tab, Oral, BID, # 180 tab, 3 Refill(s), Pharmacy: [facility], 170, cm,11/11/22 12:19:00 EST, Height/Length [...] List Name Date Comprehensive Metabolic Panel (CMP) Hgb A1c (Hemoglobin A1C) 01/11/24 Most recent to oldest [Reference Range]: 1 BUN [7-25 mg/dL] 30 mg/dL *HI* (01/11/24 4:33 PM) Glucose Level [70-109 mg/dL] 122 mg/dL *HI* (01/11/24 4:33 PM) Potassium Level [3.5-5.1 mmol/L] 4.2 mmo l/L (01/11/24 4:33 PM) AST [13-39 IntlUnit/L] 16 IntlUnit/L (01/11/24 4:33 PM) ALT [7-52 IntlUnit/L] 9 IntlUnit/L (01/11/24 4:33 PM) Osmolality [275-295 mOsm/kg] 285 mOsm/kg (01/11/24 4:33 PM) Sodium Level [136-145 mmol/L] 139 mmol/L (01/11/24 4:33 PM) Calcium Level [8.6-10.3 mg/dL] 8.9 mg/dL (01/11/24 4:33 PM) Albumin Level [3.5-5.7 g/dL] 3.9 g/dL (01/11/24 4:33 PM) Protein Total [6.4-8.9 g/dL] 6.4 g/dL (01/11/24 4:33 PM) Bilirubin Total [0.3-1.0 mg/dL] 0.7 mg/d L (01/11/24 4:33 PM) Alk Phos [34-104 IntlUnit/L] 71 IntlUnit /L (01/11/24 4:33 PM) CO2 [21-31 mmol/L] 30 mmol/L (01/11/24 4:33 PM) eAvg Glucose [70-105 mg/dL] 143 mg/dL *HI* (01/11/24 4:33 PM) Chloride Level [98-107 mmol/L] 101 mmol/ L (01/11/24 4:33 PM) A/G Ratio [1.0-2.5 g/dL] 1.6 g/dL (01/11/24 4:33 PM) BUN/Creat Ratio [8.0-20.0] 25.0 *HI* (01/11/24 4:33 PM) Globulin [2.3-3.5 g/dL] 2.5 g/dL (01/11/24 4:33 PM) Hgb A1c Percent [4.0-6.0 %] 6.6 % *HI* (01/11/24 4:33 PM) Creatinine Level [0.60-1.20 mg/dL] 1.20 mg/dL (01/11/24 4:33 PM) Anion Gap [3.0-12.0] 8.0 (01/11/24 4:33 PM) eGFR CKD-EPI [>=60 mL/min/1.73 m2] 46 mL /min/1.73 m2 *LOW* (01/11/24 4:33 PM) Social History Social History Type Response Tobacco Never tobacco user T obacco Use:. 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 Katlyn Watershur, DO 08/12/22 Non Biological Knee L Device Identifier Serial Number Lot or Batch Number Manufacturing Date Expiration Date Distinct Identification Code MRI Safety Implantable Status Assigning Authority Unknown NA [id number] Unknown 08/07/24 Unknown Unknown Active Unknown Unknown N/A [id number] 2 Unknown 06/10/32 Unknown Unknown Active Unknown Unknown NA [id number] 1 Unknown 04/01/27 Unknown Unknown Active Unknown Unknown N/A [id number] 2 Unknown 12/07/31 Unknown Unknown Active Unknown Unknown N/A [id number] 2 Unknown 12/15/26 Unknown Unknown Active Unknown Patient Care team information Care Team Personnel Name: Sanaz Fang APRN, Position: Physician Member Role: Nurse Practitioner Address: Address: [address] [place] [address] Name: Anabel Hallman APRN Position: Physician Member Role: Nurse Practitioner Address: Address: [address] [place] [address] Name: Mally Vazquez APRN Position: Physician Member Role: Primary Care Physician Address: Address: [address] [place] [address] [place] Care Team Related Persons Name: LAURA LEON
--- OUTSIDE RECORDS SUMMARY | 2024-04-25 04:10 | XMS_ITS | Continuity of Care Document ---
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 Name Role Phone Mally Vazquez APRN Primary Care Physician Encounter [facility] NBR [id number] Date(s): 09/16/23 - 09/16/23 [facility] Ambulatory Clinics [address] [place], [place] [address] Encounter Diagnosis Chronic kidney disease, stage 3(Discharge Diagnosis) - 09/16/23 Discharge Disposition: Home or Self Care Attending Physician: Mally Vazquez APRN Referring Physician: Mally Vazquez APRN Allergies, Adverse Reactions, Alerts Substance Reaction Severity Status narcotic analgesics Unknown Active sulfa drugs Rash Hallucinations Unknown Active Flomax Dizziness Unknown Active Assessment and Plan Future Appointments Future Scheduled Tests Laboratory* Comprehensive Metabolic Panel 09/18/23 Radiology* US Kidney Bladder 08/31/23 Functional Status 09/16/23 Other exposure to Infectious Disease Non e Immunizations Given and Recorded Vaccine Date Status Refusal Reason influenza virus vaccine, inactivated 1 08/02/22 Re corded SARS-CoV-2 mRNA (toshainanameran 12y+) bival 2 08/02/22 Recorded 1Result Comment: RD done at [place] Lot: [id number] exp: 05/08/2023 Sanofi 2Result Comment: Lot: [id number] Exp: 06/08/23 LD done at [place] Medications Albuterol (Eqv-Proventil HFA) 90 mcg/inh inhalation aerosol 1 puffs, Inhale, every 4 hr, PRN as needed for wheezing, Do not exceed 12 inhalations in a 24-hour period., # 1 EA, 0 Refill(s), Pharmacy: [id number], 170, cm, 11/11/22 12:19:00 EST, [...] taking., # 12 tab, 1 Refill(s), Pharmacy: [facility], 170, cm, 11/11/22 12:19:00 EST, [...] evening, # 90 tab, 3 Refill(s), Pharmacy: [facility],114.09, cm, 08/12/22 16:18:00 EDT, Height/Length [...] morning, # 90 tab, 3 Refill(s), Pharmacy: [facility],114.09, cm, 08/12/22 16:18:00 EDT, Height/Length Dosing, 165, kg, 08/12/22 16:18:00 EDT, Weight Dosing Start Date: 10/24/22 Stop Date: 10/19/23 Status: Ordered gabapentin 100 mg oral capsule 100 mg = 1 cap, Oral, Daily, # 90 cap, 0 Refill(s), Pharmacy: [facility], 170, cm, 11/11/22 12:19:00 EST, Height/Length Dosing, 96, kg, 11/11/22 12:19:00 EST, Weight Dosing Start Date: 06/05/23 Stop Date: 09/03/23 Status: Ordered Jardiance 10 mg oral tablet 10 mg = 1 tab, Oral, every morning, # 30 tab, 0 Refill(s), Pharmacy: [id number], 170, cm, 11/11/22 12:19:00 EST, Height/Length Dosing, 96, kg, 11/11/22 12:19:00 EST, Weight Dosing Start Date: 08/28/23 Status: Ordered levothyroxine 137 mcg (0.137 mg) oral tablet See Instructions, TAKE 1 TABLET DAILY IN THE MORNING ON AN EMPTY STOMACH, # 90 tab, 3 Refill(s), Pharmacy: [facility], 170, cm, 11/11/22 12:19:00 EST, Height/Length Dosing, 96, kg,11/11/22 12:19:00 EST, Weight Dosing Start Date: 04/14/23 Status: Ordered losartan 100 mg oral tablet 100 mg = 1 tab, Oral, Daily, # 90 tab, 3 Refill(s), Pharmacy: [facility], 114.09, cm, 08/12/22 16:18:00 EDT, Height/Length Dosing, 165, kg, 08/12/22 16:18:00 EDT, Weight Dosing Start Date: 10/24/22 Stop Date: 10/19/23 Status: Ordered metoprolol tartrate 25 mg oral tablet 25 mg = 1 tab, Oral, BID, # 180 tab, 3 Refill(s), Pharmacy: [facility], 170, cm,11/11/22 12:19:00 EST, Height/Length Dosing, 96, kg, 11/11/22 12:19:00 EST, Weight Dosing Start Date: 08/25/23 Stop Date: 08/19/24 Status: Ordered multivitamin adult, oral tablet 1 tab, Oral, Daily Start Date: 08/11/22 Status: Ordered [employer] oral capsule 8 EA, TAKE 1 CAPSULE [...] Range]: 1 Peripheral Pulse Rate [60-100 bpm] 69 bp m (09/16/23 12:38 PM) Blood Pressure [90-140/60-90 mmHg] 108/6 2mmHg (09/16/23 12:38 PM) Mean Arterial Pressure, Cuff [70-110 mmH g] 77 mmHg (09/16/23 12:38 PM) Weight 99.79 kg (09/16/23 12:38 PM) Weight Measured (lbs) 219.999 lb (09/16/23 12:38 PM) Weight Dosing 99.790 kg (09/16/23 12:38 PM) [place] Body Weight Calculated 59.3 kg (09/16/23 12:38 PM) Height 167.64 cm (09/16/23 12:38 PM) Height/Length Measured (inches) 66 inch (09/16/23 12:38 PM) Body Mass Index 35.51 kg/m2 (09/16/23 12:38 PM) Social History Social History Type Response Tobacco Never tobacco user T obacco Use:. 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 Prateekemiliana Richelle, 08/12/22 Non Biological Knee L Device Identifier Serial Number Lot or Batch Number Manufacturing Date Expiration Date Distinct Identification Code MRI Safety Implantable Status Assigning Authority Unknown NA [id number] Unknown 08/07/24 Unknown Unknown Active Unknown Unknown N/A [id number] 2 Unknown 06/10/32 Unknown Unknown Active Unknown Unknown NA [id number] 1 Unknown 04/01/27 Unknown Unknown Active Unknown Unknown N/A [id number] 2 Unknown 12/07/31 Unknown Unknown Active Unknown Unknown N/A [id number] 2 Unknown 12/15/26 Unknown Unknown Active Unknown Patient Care team information Care Team Personnel Name: Sanaz Fang APRN, Position: Physician Member Role: Nurse Practitioner Address: Address: [address] [place] [address] Name: Anabel Hallman APRN Position: Physician Member Role: Nurse Practitioner Address: Address: [address] [place] [address]- [place] Name: Mally Vazquez APRN Position: Physician Member Role: Primary Care Physician Address: Address: [address] [place] [phone] Care Team Related Persons Name: LAURA LEON
--- OUTSIDE RECORDS SUMMARY | 2024-04-25 04:10 | XMS_ITS | Continuity of Care Document ---
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 unsure what they got Assessment and Plan Extracted from: Title:Discharge Note Author:David Flores MD D ate:12/17/23 Discharge Plan 1.??Pulmonary embolus??I26.99 Doing well on Eliquis would continue indefinitely at this point given??non provoked pulmonary emboli. Ordered: Lactated Ringers Injection 1,000 mL, Total Volume (mL): 1,000, 1,000 mL, Soln- IV, IV, 150 mL/hr, Order Duration: 30 days, Start Date: 12/16/23 16:03:00 EST, Stop Date: 01/15/24 16:02:00 EST, 91 kg, Populate Charting Weight From Order, 2.04, m2 ?? 2.??Major depression, recurrent??F33.9 Appreciate??help from palliative care??currently on mirtazapine 15 mg at bedtime??question is really get in the way of her getting stronger??and thriving and she will be going to [facility] for continued treatment??this. Ordered: Lactated Ringers Injection 1,000 mL, Total Volume (mL): 1,000, 1,000 mL, Soln- IV, IV, 150 mL/hr, Order Duration: 30 days, Start Date: 12/16/23 16:03:00 EST, Stop Date: 01/15/24 16:02:00 EST, 91 kg, Populate Charting Weight From Order, 2.04, m2 ?? 3.??Chronic renal insufficiency??N18.9 Baseline has some??CKD??with creatinine around 1.2 or 1.3.?? She has been as high as the low 3s before. ??She has an acute kidney injury over the last week??likely from??dehydration while on Lasix and not eating and drinking much??over the course of the last week.?? Her creatinine was 2.6 yesterday up from 2.1 few days prior.?? We gave her gentle hydration??we stopped her Lasix??and her losartan??and her creatinine is down to 2.5 and??her renal ultrasound shows no obstruction.?? Recommend??checking??another renal panel in 5 days. Her urinalysis is normal, overall fits highly with pre-renal azotemia from not taking in much while on lasix. ---lasix is stopped. ?? ----Check renal panel in 5 days ?? 4.??Idiopathic thrombocytopenia??D69.3 This is a longstanding problem of hers??on admission had an influenza induced??ITP flare. ??See last discharge summary from inpatient but??4 days of??high-dose Decadron??resolved this and her platelets have remained normal.?? No indication for further checking ?? 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 on letrozole followed DH ?? 6.??Diabetes mellitus type 2??E11.9 Overall no issues with this even on high-dose steroids her blood sugars were okay ?? Orders: docusate-senna 50 mg-8.6 mg oral tablet, 2 tab, Oral, BID, 0 Refill(s) Mucinex 600 mg oral tablet, extended release, 600 mg = 1 tab, Oral, BID, 0 Refill(s) melatonin 3 mg oral tablet, 6 mg = 2 tab, Oral, every evening, 0 Refill(s) methylphenidate 5 mg oral tablet, 7.5 mg = 1.5 tab, Oral, BID, 0 Refill(s) mirtazapine 7.5 mg oral tablet, 15 mg = 2 tab, Oral, every night at bedtime, 0 Refill(s) MiraLax, 17 g = 1 packets, Oral, TID, 0 Refill(s) Follow Up With When Contact Information Mally Vazquez APRN Within 1 month [address] [place] [phone] Additional Instructions: Extracted from: Title:Pallaitive follow up Note Author:Marshall Flor MD Date:12/14/23 1.??Pulmonary embolus??I26.9 9 On treatment 2.??Major depression, recurrent??F33.9 Starting to show some signs of response.?? Continue on methylphenidate and will increase dose slightly to 3 times daily last dose 3 pm.?? Continue mirtazapine and suggest dose increase in @ 1 week if incomplete response.?? Consider AM bupropion restart.?? Defer to next provider and suggest specialty level recommendations and oversight. 78 yo female with extensive medical illness now stabilized and significant functional decline after extended hospitalizations complicated by major depression and now signs of frailty.?? Improving slightly.? Would strongly benefit from specialty level psychiatric and potential group therapy or focused counseling in addition to pharmacological management.?? Also will require exercise therapy.?? Presently stand by assist on O2 with a risk of medical decline. ?? Suggest referral for brief stay at [facility] if available or SNF rehab with psychiatric support and care.?? Unclear what best possible functional level is.?? Should have further discussions regarding code status and goals of care once mood improved and able to better participate.?? Have discussed my concerns with son Josias and patient regarding the low likelihood of benefit and high degree of harm associated with aggressive treatment such as intubation and CPR.? 15 min. face to face ad 20 min discussion with team and record review ? Extracted from: Title:Progress/SOAP Note Author:Omero higgins MD Date:12/13/23 1.??Pulmonary embolus??I26.99 On Eliquis,??stable. ??Denies any chest pain or shortness of breath 2.??Major depression, recurrent??F33.9 Started on methylphenidate??on 12/10 by palliative care??with improvement??in energy and appetite.?? Mirtazapine also added at bedtime. Orders: bisacodyl, 10 mg = 1 supp, Rectal, Supp, Daily for 30 days, PRN constipation, First Dose: 12/12/23 14:42:00 EST, Stop Date: 01/11/24 14:41:00 EST, Physician Stop, Routine mineral oil, 133 mL, Rectal, Enema, Daily for 30 days, PRN constipation, First Dose: 12/13/23 10:41:00 EST, Stop Date: 01/12/24 10:40:00 EST, Physician Stop, Routine ondansetron, 4 mg = 1 tab, Oral, Tab-Dis, every 6 hr, PRN nausea/vomiting, First Dose: 12/12/23 15:50:00 EST, Routine, zofran MiraLax, 17 g = 1 packets, Oral, Powder-Recon, Daily for 30 days, First Dose: 12/12/23 15:00:00 EST, Stop Date: 01/11/24 8:59:00 EST, Physician Stop, Routine 3. ??Constipation.?? Patient already on??twice daily??Senokot. ??Added daily MiraLAX with as needed bisacodyl suppository??and??as needed mineral oil enema 4.?? Hypertension, dyslipidemia, hypothyroidism, GERD. ??Stable. ??Home meds continued. Future Appointments Future Scheduled Tests Laboratory* Comprehensive Metabolic Panel 09/18/23 Radiology* US Kidney Bladder 08/31/23 Functional Status 12/18/23 Living Environment Living Situation: Ho me independently Current Home Treatments: Home Devices/Equipment Professional Skilled Services: Special Services and Community Resources: Sensory Deficits: Performed by: Tianna Christensen-12/07/23 14:06:00 Living Situation: Home independently Current Home Treatments: Home Devices/Equipment Professional Skilled Services: Special Services and Community Resources: Sensory Deficits: Performed by: PAWEL Ruiz12/07/23 13:31:00 Lives In Multilevel home Lives With Alone Living Situation Home independently Current Home Treatments CPAP, Oxygen therapy Home Equipment Oxygen Special Services and Community Resources Other: She states she utilizes meals on wheels at times but not all the time. She states she does not need them currently. 12/18/23 Personal Care Provided Diaper/Brief bryan ged, Gown change 12/17/23 Activity Status ADL HOB elevated 12/17/23 Dinner Percent 100 12/17/23 ADLs Moderate assistance Assistive Device Walker 12/14/23 Lunch Percent 0 12/12/23 Positioning/Pressure Reducing Devices Pi llow 12/11/23 Breakfast Percent 50 12/09/23 Evening Snack Percent 10 12/09/23 Time Dangled at Bedside 4 12/08/23 Prior ADL Status Assist needed Prior Mobility Status Assist needed Prior Instrumental ADL Level Assist need ed Prior Cognitive-Communication Skills Ass ist needed 12/07/23 Family Member Travel History No recent t ravel Recent Travel History No recent travel 12/07/23 Patient's Responsibilities Rehab Manager Cancer, Meal preparation, Passenger, Personal ADL Immunizations Given and Recorded Vaccine Date Status Refusal Reason influenza virus vaccine, inactivated 1 08/02/22 Re corded SARS-CoV-2 mRNA (tozinameran 12y+) bival 2 08/02/22 Recorded 1Result Comment: RD done at [facility] Lot: [id number] exp: 05/08/2023 [employer] 2Result Comment: Lot: [id number] Exp: 06/08/23 LD done at [facility] Medications Acidophilus 1 tab, Oral, every morning Start Date: 11/15/23 Status: Ordered Albuterol (Eqv-Proventil HFA) 90 mcg/inh inhalation aerosol 1 puffs, Inhale, every 4 hr, PRN as needed for wheezing, Do not exceed 12 inhalations in a 24-hour period., # 1 EA, 0 Refill(s), Pharmacy: [id number], 170, cm, 11/11/22 12:19:00 EST, [...] taking., # 12 tab, 1 Refill(s), Pharmacy: [facility], 170, cm, 11/11/22 12:19:00 EST, Height/Length Dosing, 96, kg, 11/11/22 12:19:00 EST, Weight Dosing Start Date: 07/21/23 Stop Date: 01/05/24 Status: Ordered atorvastatin 10 mg oral tablet 10 mg = 1 tab, Oral, every evening, # 90 tab, 3 Refill(s), Pharmacy: [facility],114.09, cm, 08/12/22 16:18:00 EDT, Height/Length [...] BID, # 60 tab, 0 Refill(s), Pharmacy: [id number], 165, cm, 11/24/23 16:14:00 EST, [...] morning, # 30 tab, 3 Refill(s), Pharmacy: [id number], 165.1, cm, 11/14/23 22:52:00 EST, [...] stomach, # 90 tab, 3 Refill(s), Pharmacy: [facility], 170, cm, 11/11/22 12:19:00 EST, Height/Length Dosing, 96, kg, 11/11/22 12:19:00 EST, Weight Dosing Start Date: 04/14/23 Status: Ordered melatonin 3 mg oral tablet 6 mg = 2 tab, Oral, every evening, 0 Refill(s) Start Date: 12/17/23 Status: Ordered methylphenidate 5 mg oral tablet 7.5 mg = 1.5 tab, Oral, BID, 0 Refill(s) Start Date: 12/17/23 Status: Ordered metoprolol tartrate 25 mg oral tablet 25 mg = 1 tab, Oral, BID, # 180 tab, 3 Refill(s), Pharmacy: [facility], 170, cm,11/11/22 12:19:00 EST, Height/Length [...] every morning Start Date: 08/11/22 Status: Ordered Vitamin C 500 mg oral [...] to Fibroids Results Laboratory List Name Date Urinalysis with Micro if Indicated and C ulture if Indicated 12/18/23 SARS-CoV-2 (COVID-19) PCR (GeneXpert) (C OVID 19 (GeneXpert)) 12/17/23 Glucose POCT 12/17/23 Comprehensive Metabolic Panel 12/17/23 Comprehensive Metabolic Panel (CMP) .Morphology (LTTL) 12/16/23 CBC w/ Diff 12/16/23 Automated Diff 12/16/23 Glucose POCT 12/16/23 Glucose POCT 12/15/23 CBC w/ Diff 12/13/23 Comprehensive Metabolic Panel (CMP) Automated Diff 12/13/23 .Morphology (LTTL) 12/09/23 CBC w/ Diff 12/09/23 Lactic Acid 12/09/23 Automated Diff 12/09/23 Urinalysis Microscopic 12/08/23 Urinalysis with Micro if Indicated and C ulture if Indicated 12/08/23 Most recent to oldest [Reference Range]: 1 2 3 WBC [4.8-10.8 K/mcL] 9.4 K/mcL (12/16/23 10:02 AM) 7.6 K/mcL (12/13/23 8:35 AM) 10.7 K/mcL (12/09/23 8:00 AM) RBC [4.20-5.40 Million/mcL] 4.04 Million/mcL *LOW* (12/16/23 10:02 AM) 3.79 Million/mcL *LOW* (12/13/23 8:35 AM) 3.82 Million/mcL *LOW* (12/09/23 8:00 AM) Neutro Auto [42.2-75.2 %] 76.0 % *HI* (12/16/23 10:02 AM) 74.2 % (12/13/23 8:35 AM) 83.5 % *HI* (12/09/23 8:00 AM) Lymph Auto [20.5-51.1 %] 13.4 % *LOW* (12/16/23 10:02 AM) 14.6 % *LOW* (12/13/23 8:35 AM) 7.0 % *LOW* (12/09/23 8:00 AM) [place] Auto [1.7-9.3 %] 8.9 % (12/16/23 10:02 AM) 9.1 % (12/13/23 8:35 AM) 8.7 % (12/09/23 8:00 AM) Basophil Auto [0.0-0.8 %] 0.8 % (12/16/23 10:02 AM) 0.3 % (12/13/23 8:35 AM) 0.4 % (12/09/23 8:00 AM) BUN [7-25 mg/dL] 60 mg/dL *HI* (12/17/23 6:27 AM) 61 mg/dL *HI* (12/16/23 1:57 PM) 59 mg/dL *HI* (12/13/23 8:35 AM) Glucose POC 142 *NA* (12/17/23 8:41 AM) 157 *NA* (12/16/23 8:01 AM) 194 *NA* (12/15/23 8:29 PM) UA Color [Yellow] Yellow (12/18/23 5:34 AM) UA Color LIGHT YELL *NA* (12/08/23 9:50 AM) UA WBC [0-3] 6-10 *ABN* (12/08/23 9:50 AM) Glucose Level [70-109 mg/dL] 153 mg/dL *HI* (12/17/23 6:27 AM) 210 mg/dL *HI* (12/16/23 1:57 PM) 144 mg/dL *HI* (12/13/23 8:35 AM) Potassium Level [3.5-5.1 mmol/L] 4.0 mmol/L (12/17/23 6:27 AM) 4.2 mmol/L (12/16/23 1:57 PM) 3.7 mmol/L (12/13/23 8:35 AM) Baso Absolute [0.0-0.2 K/mcL] 0.1 K/mcL (12/16/23 10:02 AM) 0.0 K/mcL (12/13/23 8:35 AM) Baso Absolute [0.00-0.20 K/mcL] 0.00 K/mcL (12/09/23 8:00 AM) MCV [81.0-99.0 fL] 84.8 fL (12/16/23 10:02 AM) 83.8 fL (12/13/23 8:35 AM) 83.2 fL (12/09/23 8:00 AM) UA Urobilinogen [0.2] 0.2 (12/18/23 5:34 AM) 0.2 (12/08/23 9:50 AM) RBC Morph [Normal] Abnormal *ABN* (12/16/23 10:02 AM) Abnormal *ABN* (12/09/23 8:00 AM) UA Hyal Cast [0-3] 0-3 (12/08/23 9:50 AM) UA Bili [Negative] Negative (12/18/23 5:34 AM) Negative (12/08/23 9:50 AM) UA Ketones [Negative] Negative (12/18/23 5:34 AM) Negative (12/08/23 9:50 AM) AST [13-39 IntlUnit/L] 21 IntlUnit/L (12/17/23 6:27 AM) 25 IntlUnit/L (12/16/23 1:57 PM) 17 IntlUnit/L (12/13/23 8:35 AM) ALT [7-52 IntlUnit/L] 17 IntlUnit/L (12/17/23 6:27 AM) 20 IntlUnit/L (12/16/23 1:57 PM) 15 IntlUnit/L (12/13/23 8:35 AM) MCHC [32.0-37.0 g/dL] 31.6 g/dL *LOW* (12/16/23 10:02 AM) 32.3 g/dL (12/13/23 8:35 AM) 32.7 g/dL (12/09/23 8:00 AM) Osmolality [275-295 mOsm/kg] 294 mOsm/kg (12/17/23 6:27 AM) 295 mOsm/kg (12/16/23 1:57 PM) 291 mOsm/kg (12/13/23 8:35 AM) Sodium Level [136-145 mmol/L] 137 mmol/L (12/17/23 6:27 AM) 136 mmol/L (12/16/23 1:57 PM) 136 mmol/L (12/13/23 8:35 AM) UA RBC [0-3] 0-3 (12/08/23 9:50 AM) UA Leuk Est [Negative] Negative (12/18/23 5:34 AM) Small *ABN* (12/08/23 9:50 AM) Lymph Absolute [1.2-3.4 K/mcL] 1.3 K/mcL (12/16/23 10:02 AM) 1.1 K/mcL *LOW* (12/13/23 8:35 AM) 0.7 K/mcL *LOW* (12/09/23 8:00 AM) UA Nitrite [Negative] Negative (12/18/23 5:34 AM) Negative (12/08/23 9:50 AM) UA Glucose [Negative] Negative (12/18/23 5:34 AM) Negative (12/08/23 9:50 AM) Hct [37.0-47.0 %] 34.3 % *LOW* (12/16/23 10:02 AM) 31.8 % *LOW* (12/13/23 8:35 AM) 31.7 % *LOW* (12/09/23 8:00 AM) UA Bacteria [None Seen] 1+ *ABN* (12/08/23 9:50 AM) Schistocytes 1+ *ABN* (12/09/23 8:00 AM) Elliptocyte 1+ *ABN* (12/09/23 8:00 AM) Hypochromia 1+ *ABN* (12/16/23 10:02 AM) Calcium Level [8.6-10.3 mg/dL] 11.2 mg/dL *HI* (12/17/23 6:27 AM) 11.0 mg/dL *HI* (12/16/23 1:57 PM) 10.0 mg/dL (12/13/23 8:35 AM) [place] Absolute [0.1-0.6 K/mcL] 0.8 K/mcL *HI* (12/16/23 10:02 AM) 0.7 K/mcL *HI* (12/13/23 8:35 AM) 0.9 K/mcL *HI* (12/09/23 8:00 AM) Albumin Level [3.5-5.7 g/dL] 3.3 g/dL *LOW* (12/17/23 6:27 AM) 3.5 g/dL (12/16/23 1:57 PM) 3.3 g/dL *LOW* (12/13/23 8:35 AM) Protein Total [6.4-8.9 g/dL] 5.9 g/dL *LOW* (12/17/23 6:27 AM) 6.3 g/dL *LOW* (12/16/23 1:57 PM) 6.1 g/dL *LOW* (12/13/23 8:35 AM) UA Protein [Negative] Negative (12/18/23 5:34 AM) Negative (12/08/23 9:50 AM) Poik 1+ *ABN* (12/16/23 10:02 AM) 2+ *ABN* (12/09/23 8:00 AM) MCH [27.0-31.0 pg] 26.8 pg *LOW* (12/16/23 10:02 AM) 27.1 pg (12/13/23 8:35 AM) 27.2 pg (12/09/23 8:00 AM) Neutro Absolute [1.4-6.5 K/mcL] 7.1 K/mcL *HI* (12/16/23 10:02 AM) 5.7 K/mcL (12/13/23 8:35 AM) 9.0 K/mcL *HI* (12/09/23 8:00 AM) Bilirubin Total [0.3-1.0 mg/dL] 0.9 mg/dL (12/17/23 6:27 AM) 1.1 mg/dL *HI* (12/16/23 1:57 PM) 0.9 mg/dL (12/13/23 8:35 AM) Hgb [12.0-16.0 g/dL] 10.8 g/dL *LOW* (12/16/23 10:02 AM) 10.3 g/dL *LOW* (12/13/23 8:35 AM) 10.4 g/dL *LOW* (12/09/23 8:00 AM) Alk Phos [34-104 IntlUnit/L] 52 IntlUnit/L (12/17/23 6:27 AM) 57 IntlUnit/L (12/16/23 1:57 PM) 58 IntlUnit/L (12/13/23 8:35 AM) UA Blood [Negative] Negative (12/18/23 5:34 AM) Negative (12/08/23 9:50 AM) MPV [7.4-10.4 fL] 9.8 fL (12/16/23 10:02 AM) 9.9 fL (12/13/23 8:35 AM) 10.0 fL (12/09/23 8:00 AM) UA Mucous [None Seen] Present *ABN* (12/08/23 9:50 AM) Teardrop Cells 1+ *ABN* (12/16/23 10:02 AM) 1+ *ABN* (12/09/23 8:00 AM) UA Spec Grav [1.001-1.030] 1.020 (12/18/23 5:34 AM) 1.010 (12/08/23 9:50 AM) Platelets [130-400 K/mcL] 173 K/mcL (12/16/23 10:02 AM) 120 K/mcL *LOW* (12/13/23 8:35 AM) 81 K/mcL *LOW* (12/09/23 8:00 AM) CO2 [21-31 mmol/L] 30 mmol/L (12/17/23 6:27 AM) 29 mmol/L (12/16/23 1:57 PM) 30 mmol/L (12/13/23 8:35 AM) Eos Absolute [0.0-0.2 K/mcL] 0.1 K/mcL (12/16/23 10:02 AM) 0.1 K/mcL (12/13/23 8:35 AM) 0.0 K/mcL (12/09/23 8:00 AM) Lactic Acid Lvl [0.5-2.2 mmol/L] 0.7 mmol/L (12/09/23 8:00 AM) UA Squam Epithelial [0-3] 0-3 (12/08/23 9:50 AM) UA pH [5.00-9.00] 5.00 (12/18/23 5:34 AM) 5.50 (12/08/23 9:50 AM) UA Appear [Clear] Clear (12/18/23 5:34 AM) Clear (12/08/23 9:50 AM) Chloride Level [98-107 mmol/L] 99 mmol/L (12/17/23 6:27 AM) 97 mmol/L *LOW* (12/16/23 1:57 PM) 98 mmol/L (12/13/23 8:35 AM) RDW-CV [11.5-14.5 %] 18.4 % *HI* (12/16/23 10:02 AM) 16.8 % *HI* (12/13/23 8:35 AM) 16.5 % *HI* (12/09/23 8:00 AM) A/G Ratio [1.0-2.5 g/dL] 1.3 g/dL (12/17/23 6:27 AM) 1.3 g/dL (12/16/23 1:57 PM) 1.2 g/dL (12/13/23 8:35 AM) BUN/Creat Ratio [8.0-20.0] 24.0 *HI* (12/17/23 6:27 AM) 23.5 *HI* (12/16/23 1:57 PM) 28.1 *HI* (12/13/23 8:35 AM) Globulin [2.3-3.5 g/dL] 2.6 g/dL (12/17/23 6:27 AM) 2.8 g/dL (12/16/23 1:57 PM) 2.8 g/dL (12/13/23 8:35 AM) Ovalocytes 1+ *ABN* (12/16/23 10:02 AM) UA WBC Clumps [None Seen] 0-3 *ABN* (12/08/23 9:50 AM) Slide Review Morph Only (12/16/23 10:02 AM) Not Indicated (12/13/23 8:35 AM) Morph Only (12/09/23 8:00 AM) UA Culture Ind?. [No] Yes (12/08/23 9:50 AM) Urine Srce Clean Catch (12/18/23 5:34 AM) Clean Catch (12/08/23 9:50 AM) Plt Large Few *ABN* (12/09/23 8:00 AM) Anisocyte 2+ (12/16/23 10:02 AM) 1+ (12/09/23 8:00 AM) SARS-CoV-2 (COVID-19) PCR (GeneXpert) [Negative] Negative (12/17/23 10:28 AM) Creatinine Level [0.60-1.20 mg/dL] 2.50 mg/dL *HI* (12/17/23 6:27 AM) 2.60 mg/dL *HI* (12/16/23 1:57 PM) 2.10 mg/dL *HI* (12/13/23 8:35 AM) Plt Estimation Normal (12/16/23 10:02 AM) Decreased *ABN* (12/09/23 8:00 AM) Anion Gap [3.0-12.0] 8.0 (12/17/23 6:27 AM) 10.0 (12/16/23 1:57 PM) 8.0 (12/13/23 8:35 AM) Eos, Auto [0.00-3.00 %] 0.90 % (12/16/23 10:02 AM) 1.80 % (12/13/23 8:35 AM) 0.40 % (12/09/23 8:00 AM) eGFR CKD-EPI [>=60 mL/min/1.73 m2] 19 mL/min/1.73 m2 *LOW* (12/17/23 6:27 AM) 18 mL/min/1.73 m2 *LOW* (12/16/23 1:57 PM) 24 mL/min/1.73 m2 *LOW* (12/13/23 8:35 AM) Orders for Microbiology Reports Name Date Blood Culture 12/09/23 Blood Culture 12/09/23 Urine Culture 12/08/23 Microbiology Reports TEST:Blood Culture STATUS:Auth (Verified) BODY SITE:Right Hand SOURCE:Blood COLLECTED DATE/TIME:12/09/23 8:42 AM FINAL REPORT No growth at 5 days. TEST:Blood Culture STATUS:Auth (Verified) BODY SITE: SOURCE:Blood COLLECTED DATE/TIME:12/09/23 8:37 AM FINAL REPORT No growth at 5 days. TEST:Urine Culture STATUS:Auth (Verified) BODY SITE: SOURCE:Urine, Clean Catch COLLECTED DATE/TIME:12/08/23 9:50 AM FINAL REPORT 50,000 - 100,000 cfu/ml Mixed Gram Positive [facility] Reports * Exam Date Time Procedure Performing Provider Status 12/17/23 12:56 PM US Kidney Bladder DomainUser, Asim d; Auth (Verified) Notes: (US Kidney Bladder) Reason For Exam: eval acute on chronic renal failure US Kidney Bladder EXAM DESCRIPTION: US Kidney Bladder 12/17/2023 INDICATION: EVAL ACUTE ON CHRONIC RENAL FAILURE TECHNIQUE: Technique: Grayscale and color doppler ultrasound examination of the kidney and bladder region. COMPARISON: 09/07/2023 FINDINGS: The left kidney measures 4.2 cm x 11 cm x 4.9 cm. The right kidney measures 5 cm x 11.6 cm x 5 cm. Upper pole of the left kidney partly obscured by presumed bowel gas. Otherwise no focal renal mass, hydronephrosis or perinephric fluid collection on either side The bladder was decompressed and not well evaluated. IMPRESSION: Renal sizes as described above Upper pole of the left kidney partly obscured by presumed bowel gas. Otherwise no focal renal mass, hydronephrosis or perinephric fluid collection on either side. JOB #: [id number] Final Signed by: Kishore Parra MD Signed (Electronic Signature): 12/17/2023 1:18 pm * Exam Date Time Procedure Performing Provider Status 12/14/23 5:05 PM XR Spine Cervical 2 or 3 Views Jose Sanders; [place] (Verified) Notes: (XR Spine Cervical 2 or 3 Views) Reason For Exam: neck pain XR Spine Cervical 2 or 3 Views PROCEDURE INFORMATION: Exam: XR Cervical Spine Exam date and time: 12/14/2023 4:56 PM Age: 78 years old Clinical indication: Major depressive disorder, recurrent, unspecified; Major depressive disorder, recurrent, unspecified; Other pulmonary embolism without acute cor pulmonale; Other pulmonary embolism without acute cor pulmonale; Additional info: Neck pain TECHNIQUE: Imaging protocol: Radiologic exam of the cervical spine. Views: 2 or 3 views. COMPARISON: CT NECK W CONTRAST 01/21/2023 11:13 AM FINDINGS: Bones/joints: Mgvc-[id number]-bcdbbzjd degenerative changes predominately mid to lower cervical spine. Flowing syndesmophytes in mid to lower cervical spine anteriorly.. No acute fracture. Normal alignment. Soft tissues: Unremarkable. IMPRESSION: No acute findings. Nbnm-sy-ljuvprfh degenerative changes THIS DOCUMENT HAS BEEN ELECTRONICALLY SIGNED BY JADIEL MCCLOUD MD on 12/14/2023 05:14 PM Final Signed by: Jadiel Mccloud MD Signed (Electronic Signature): 12/14/2023 5:14 pm * Exam Date Time Procedure Performing Provider Status 12/09/23 10:14 AM XR Chest 2 Views Concepcion Terry; Giselle th (Verified) Notes: (XR Chest 2 Views) Reason For Exam: AMS cough XR Chest 2 Views EXAM DESCRIPTION: XR Chest 2 Views 12/09/2023 INDICATION: AMS COUGH COMPARISON: 12/02/2023 FINDINGS: Clear lungs with no focal infiltrate or pulmonary edema. Normal cardiomediastinal contour. Status post median sternotomy with prosthetic cardiac valves in place Normal pleural margins with no pleural effusion or pneumothorax. Spondylotic changes of the dorsal spine. IMPRESSION: No active chest disease. JOB #: [id number] Final Signed by: Kishore Parra MD Signed (Electronic Signature): 12/09/2023 10:16 am Vital Signs Most recent to oldest [Reference Range]: 1 2 3 Temperature Oral [35.8-37.3 Deg C] 36.7 Deg C (12/13/23 7:35 PM) 36.4 Deg C (12/07/23 3:07 PM) Temperature Oral (DegF) [96.4-99.1 Deg F] 98.06 Deg F (12/13/23 7:35 PM) Temperature Temporal Artery [36-38 Deg C] 36.7 Deg C (12/18/23 8:00 AM) 36.8 Deg C (12/17/23 8:04 PM) 36.2 Deg C (12/17/23 7:26 AM) Temperature Temporal Artery (DegF) [97.3-100 Deg F] 98.24 Deg F (12/17/23 8:04 PM) 96.98 Deg F *LOW* (12/16/23 7:25 AM) 97.52 Deg F (12/09/23 4:58 AM) Peripheral Pulse Rate [60-100 bpm] 96 bpm (12/18/23 8:00 AM) 91 bpm (12/17/23 8:04 PM) 85 bpm (12/17/23 10:10 AM) Heart Rate Monitored [60-100 bpm] 83 bpm (12/08/23 7:46 AM) Respiratory Rate [12-24 br/min] 17 br/min (12/18/23 8:00 AM) 16 br/min (12/17/23 8:04 PM) 18 br/min (12/17/23 7:26 AM) Blood Pressure [90-140/60-90 mmHg] 106/48mmHg (12/18/23 8:00 AM) 108/44mmHg (12/17/23 8:04 PM) 102/51mmHg (12/17/23 2:45 PM) Mean Arterial Pressure, Cuff [70-110 mmHg] 65 mmHg *LOW* (12/17/23 8:04 PM) 75 mmHg (12/16/23 7:42 PM) 64 mmHg *LOW* (12/16/23 7:25 AM) Mean Arterial Pressure Cuff 67 mmHg (12/15/23 9:53 AM) Blood Pressure Location Left arm (12/16/23 7:25 AM) Right arm (12/12/23 7:19 PM) Left arm (12/09/23 7:48 PM) Blood Pressure Method Automatic (12/16/23 7:25 AM) Automatic (12/13/23 7:35 PM) Automatic (12/12/23 7:19 PM) Weight 85.64 kg (12/16/23 4:38 PM) Weight Dosing 85.640 kg (12/16/23 4:38 PM) Body Mass Index Estimated 31.42 kg/m2 (12/16/23 4:38 PM) Height/Length Estimated 165.1 cm (12/16/23 4:38 PM) Social History Social History Type Response Tobacco Never tobacco user T obacco Use:. 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 Katlyn Watershur, DO 08/12/22 Non Biological Knee L Device Identifier Serial Number Lot or Batch Number Manufacturing Date Expiration Date Distinct Identification Code MRI Safety Implantable Status Assigning Authority Unknown NA [id number] Unknown 08/07/24 Unknown Unknown Active Unknown Unknown N/A [id number] Unknown 06/10/32 Unknown Unknown Active Unknown Unknown [id number] Unknown 04/01/27 Unknown Unknown Active Unknown Unknown N/A [id number] 2 Unknown 12/07/31 Unknown Unknown Active Unknown Unknown N/A [id number] 2 Unknown 12/15/26 Unknown Unknown Active Unknown Hospital Discharge Instructions Patient Education 12/17/2023 14:56:51 Major Depressive Disorder, Adult Major Depressive Disorder, Adult Major depressive disorder (MDD) is a mental health condition. It may also be called clinical depression or unipolar depression. MDD causes symptoms of sadness, hopelessness, and loss of interest in things. These symptoms last most of the day, almost every day, for 2 weeks. MDD can also cause physical symptoms. It can interfere with relationships and with everyday activities, such as work, school,and activities that are usually pleasant. MDD may be mild, moderate, or severe. It may be single-episode MDD, which happens once, or recurrent MDD, which may occur multiple times. What are the causes? The exact cause of this condition is not known. MDD is most likely caused by a combination of things, which may include: ??? Your personality traits. ??? [place] or conditioned behaviors or thoughts or feelings that reinforce negativity. ??? Any alcohol or substance misuse. ??? Long-term (chronic) physical or mental health illness. ??? Going through a traumatic experience or major life changes. What increases the risk? The following factors may make someone more likely to develop MDD: ??? A family history of depression. ??? Being a woman. ??? Troubled family relationships. ??? Abnormally low levels of certain brain chemicals. ??? Traumatic or painful events in childhood, especially abuse or loss of a parent. ??? A lot of stress from life experiences, such as poor living conditions or discrimination. ??? Chronic physical illness or other mental health disorders. What are the signs or symptoms? The main symptoms of MDD usually include: ??? Constant depressed or irritable mood. ??? A loss of interest in things and activities. Other symptoms include: ??? Sleeping or eating too much or too little. ??? Unexplained weight gain or weight loss. ??? Tiredness or low energy. ??? Being agitated, restless, or weak. ??? Feeling hopeless, worthless, or guilty. ??? Trouble thinking clearly or making decisions. ??? Thoughts of suicide or thoughts of harming others. ??? Isolating oneself or avoiding other people or activities. ??? Trouble completing tasks, work, or any normal obligations. Severe symptoms of this condition may include: ??? Psychotic depression.This may include false beliefs, or delusions. It may also include seeing, hearing, tasting, smelling, or feeling things that are not real (hallucinations). ??? Chronic depression or persistent depressive disorder. This is low-level depression that lasts for at least 2 years. ??? Melancholic depression, or feeling extremely sad and hopeless. ??? Catatonic depression, which includes trouble speaking and trouble moving. How is this diagnosed? This condition may be diagnosed based on: ??? Your symptoms. ??? Your medical and mental health history. You may be asked questions about your lifestyle, including any drug and alcohol use. ??? A physical exam. ??? Blood tests to rule out other conditions. MDD is confirmed if you have the following symptoms most of the day, nearly every day, in a 2-week period: ??? Either a depressed mood or loss of interest. ??? At least four other MDD symptoms. How is this treated? This condition is usually treated by mental health professionals, such as psychologists, psychiatrists, and clinical social workers. You may need more than one type of treatment. Treatment may include: ??? Psychotherapy, also called talk therapy or counseling. Types of psychotherapy include: ??? Cognitive behavioral therapy (CBT). This teaches you to recognize unhealthy feelings, thoughts,and behaviors, and replace them with positive thoughts and actions. ??? Interpersonal therapy (IPT). This helps you to improve the way you communicate with others or relate to them. ??? Family therapy. This treatment includes members of your family. ??? Medicines to treat anxiety and depression. These medicines help to balance the brain chemicals that affect your emotions. ??? Lifestyle changes. You may be asked to: ??? Limit alcohol use and avoid drug use. ??? Get regular exercise. ??? Get plenty of sleep. ??? Make healthy eating choices. ??? Spend more time outdoors. ??? Brain stimulation. This may be done if symptoms are very severe and other treatments have not worked. Examples of this treatment are electroconvulsive therapy and transcranial magnetic stimulation. Follow these instructions at home: Activity ??? Exercise regularly and spend time outdoors. ??? Find activities that you enjoy doing, and make time to do them. ??? Find healthy ways to manage stress, such as: ??? Meditation or deep breathing. ??? Spending time in nature. ??? Journaling. ??? Return to your normal activities as told by your health care provider. Ask your health care provider what activities are safe for you. Alcohol and drug use ??? If you drink alcohol: ??? Limit how much you use to: ??? 0???1 drink a day for women who are not . ??? 0???2 drinks a day for men. ??? Be aware of how much alcohol is in your drink. In the [place] one drink equals one 12 oz bottle of beer (355 mL), one 5 oz glass of wine (148 mL), or one 1?? oz glass of hard liquor (44 mL). ??? Discuss your alcohol use with your health care provider. Alcohol can affect any antidepressant medicines you are taking. ??? Discuss any drug use with your health care provider. General instructions ??? Take nztr-toq-ioxdfmb and prescription medicines only as told by your health care provider. ??? Eat a healthy diet and get plenty of sleep. ??? Consider joining a support group. Your health care provider may be able to recommend one. ??? Keep all follow-up visits as told by your health care provider. This is important. Where to find more information ??? National [place] on Mental Illness: www.derek.org ??? [place] National [place] of Mental Health: www.nimh.nih.gov Contact a health care provider if: ??? Your symptoms get worse. ??? You develop new symptoms. Get help right away if: ??? You self-harm. ??? You have serious thoughts about hurting yourself or others. ??? You hallucinate. If you ever feel like you may hurt yourself or others, or have thoughts about taking your own life,get help right away. Go to your nearest emergency department or: ??? Call your local emergency services (911 in the [place] ??? Call a suicide crisis helpline, such as the National Suicide Prevention Lifeline at or 379 in the [place] This is open 24 hours a day in the [place] ??? Text the Crisis Text Line at 370169 (in the [place] Summary ??? Major depressive disorder (MDD) is a mental health condition. MDD causes symptoms of sadness, hopelessness, and loss of interest in things. These symptoms last most of the day, almost every day, for 2 weeks. ??? The symptoms of MDD can interfere with relationships and with everyday activities. ??? Treatments and support are available for people who develop MDD. You may need more than one type of treatment. ??? Get help right away if you have serious thoughts about hurting yourself or others. This information is not intended to replace advice given to you by your health care provider. Make sure you discuss any questions you have with your health care provider. Document Revised: 05/21/2022 Document Reviewed: 10/06/2020 [email or web address] Patient Education ?? 2022 [employer]. Follow Up Care 12/07/2023 11:55:56 With:Mally Vazquez APRN Address: [address] [place] [id number] When:1 month Consult note * Marshall Dsouza MD: PERFORM Event Display: Consultation Note Generic Authored Date: [id number] DRAPERYVETTE :1945 Age:78 years Sex:Female Visit Date:12/07/2023 Primary Care Physician: Mally Vazquez APRN Chief Complaint Flu A, weakness Reason for Consultation Palliative follow up History of Present Illness Palliative Visit Specific Data: Palliative Performance Scale (PPS V2):??40 ?? Palliative follow up: After starting methylphenidate very low dose and mirtazapine improvement is clear though no sustained.?? Refused PT on Thursday and not available over the weekend.?? More alert and interactive and participating in cleaning and toileting and taking pills.?? Nurse says she is much better last couple days.?? Mood more upbeat in am but worsens over the course of the day.?? Sleeping well with some difficulty rising in am. ?? Palliative Visit Specific Data: Primary Symptoms of Concern:Fatigue, profound associated with multisystem disease and recurrent hospitalizations.? Palliative Data:??YVETTE??is a??78 years??old??Female?? Goals and values with trade offs and unacceptables: Impaired mental status and profound cognitive and physical fatigue makes consideration of limits and wishes unclear.?? Historically very active in community, weekly uatsdin, attending race car events of her son Josias, and going out to [employer] totally independent according to children until treatment for DCIS lumpectomy, XRT and hormonal the rapy (letrozole).?? Marked decline with multiple admissions and weakness since 10/31 ?? Pertinent Palliative Medical Condition with history: 10/21-: Admit [facility] post d/c from (3 d post d/c) for weakness and mild NOVA 11/15-: weakness, mild hypoxia, N/V (transfer SNF 11/16/22): CT -> yane atypical pneumonia 11/24-: readmit PE (segmental small) --> Eliquss 12/02/23- present: readmit influenza + (PCR) and cough and weak ?? 1. 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 Repeat flare [facility] 12/02 -> 40 mg dexamethasone x 5 d with significant associated mental status changes 3. Valvular heart disease with hx MVR and AVR (TAVR)?? with 60% prox LAD lesion on cath; EF 53% 4. CKD 3b with NOVA with hospitalization 5. Type 2 DM on Jardiance 6. Asthma with possible COPD and KWAKU on CPAP ?? Additional Social History: Lived independently. Member [employer] uatsdin in [place].?? Worked at [employer]. Son Josias and his girlfriend Tamia very involved.?? Good friend Mikhail (spouse of close friend). Step daughter Lilian and dog Angelia Carroll.?? Bashir @ 2014 ?? Understanding of Medical Condition:??Some understanding; Adjustment to Illness:??Prognostic information is a shock; struggling to adjust;??adjustment of primary caregiver:??Prognostic information is a shock; struggling to adjust? Spiritual History: - Denominational affiliation??Synagogue??and this has??no real??importance in medical care -??Practices to achieve sense of spirituality and peace include??Going to uatsdin, prayer daily, Rosary. ? Primary Support(s):?? Son Josias and his girlfriend who consider Alice her mother (Tamia).?? Tamia isstrong and vocal advocate and has many concerns about deficiencies and issues with prior medical care. ?? Advance Directive: Signed??08/20/16 ; DPOAH:?? son Josias; Alt DPOAH: Deepali Ghosh??; Limitations to agent:??none; Signed old NH form not wanting aggressive intervention near end of life. Patient confirmsthis for DPOAH ?? Hospice Eligibility:??YVETTE DRAPER, at this time,??does not meet??medicare hospice qualifyingcriteria as prognosis??is not consistent with a prognosis of months.?? Specific criteria for qualification would include: continued need for hospitalization and inability to recover from??her medicalcondition. Physical Exam Vitals & Measurements T:??36.2?C ??(Temporal Artery)?? TMIN:??36.0?C ??(Temporal Artery)?? TMAX:??36.7?C ??(Oral)?? HR:??80??(Peripheral)?? RR:??18?? BP:??105/47?? SpO2:??94%?? Pain Score:??0?? O2 Flow Rate:??1?? O2 Therapy:??High-Flow nasal cannula?? Alice is awake though slumped down in her bed. 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 Able to smile.?? Appears more engaged and upbeat.?? Assessment/Plan 1.??Pulmonary embolus??I26.99 On treatment 2.??Major depression, recurrent??F33.9 Starting to show some signs of response.?? Continue on methylphenidate and will increase dose slightly to 3 times daily last dose 3 pm.?? Continue mirtazapine and suggest dose increase in @ 1 week ifincomplete response.?? Consider AM bupropion restart.?? Defer to next provider and suggest specialty level recommendations and oversight. 78 yo female with extensive medical illness now stabilized and significant functional decline afterextended hospitalizations complicated by major depression and now signs of frailty.?? Improving slightly.? Would strongly benefit from specialty level psychiatric and potential group therapy or focused counseling in addition to pharmacological management.?? Also will require exercise therapy.?? Presently stand by assist on O2 with a risk of medical decline. ?? Suggest referral for brief stay at [facility] if available or SNF rehab with psychiatric support and care.?? Unclear what best possible functional level is.?? Should have further discussions regarding code status and goals of care once mood improved and able to better participate.?? Have discussedmy concerns with son Josias and patient regarding the low likelihood of benefit and high degree of harm associated with aggressive treatment such as intubation and CPR.? 15 min. face to face ad 20 min discussion with team and record review Problem List/Past Medical History Ongoing Acquired hypothyroidism [...] Lymphedema Mild stress incontinence Mitral regurgitation Neuropathy Nocturnal hypoxemia Normocytic anemia Obstructive sleep apnea Osteoarthritis Peripheral vascular disease, unspecified Pharyngoesophageal dysphagia Pulmonary embolus Vitamin D deficiency Vocal cord paralysis, unilateral complete Xerostomia Historical GERD - Gastro-esophageal reflux disease NHL - Non-Hodgkin's lymphoma Procedure/Surgical History ???Arthroplasty Knee (Left) (08/12/2022)???Aortic valve replacement and aortoplasty (02/07/2021)???Colonoscopy (01/28/2018)???EGD - Esophagogastroduodenoscopy (01/28/2018)???Biopsy of liver (05/02/2014)???Biopsy of right lung using fluoroscopic guidance (2013)???Open heart valvuloplasty of aortic valve without replacement (2013)???EGD - Esophagogastroduodenoscopy (05/24/2010)???Colonoscopy (02/05/2000)???Bilateral tubal ligation???Lumpectomy of left breast???ALEJO BSO - Total abdominal hysterectomy and bilateral salpingo-oophorectomy Medications Inpatient albuterol, 90 mcg= 1 puffs, Inhale, every 4 hr, PRN atorvastatin, 10 mg= 1 tab, Oral, every evening bisacodyl, 10 mg= 1 supp, Rectal, Daily, PRN calcium (as carbonate)-vitamin D 600 mg-400 intl units oral tablet, 1 tab, Oral, every morning cholecalciferol 1000 intl units oral tablet, 1000 units= 1 tab, Oral, every morning docusate, 100 mg= 1 cap, Oral, BID, PRN docusate-senna 50 mg-8.6 mg oral tablet, 2 tab, Oral, BID Eliquis, 5 mg= 1 tab, Oral, BID famotidine, 20 mg= 1 tab, Oral, Daily folic acid, 1 mg= 1 tab, Oral, every morning furosemide, 40 mg= 1 tab, Oral, every morning glucagon, 1 mg= 1 EA, Subcutaneous, As Directed insulin aspart Sliding Scale - Low Dose, Insulin Aspart Sliding Scale See Comments, Subcutaneous, AC & bedtime letrozole, 2.5 mg= 1 tab, Oral, every morning levothyroxine, 25 mcg= 1 tab, Oral, every morning levothyroxine, 112 mcg= 1 tab, Oral, every morning losartan, 50 mg= 1 tab, Oral, every evening melatonin 3 mg oral tablet, 6 mg= 2 tab, Oral, every evening methylphenidate, 5 mg= 1 tab, Oral, With Morning Meal Metoprolol Tartrate, 25 mg= 1 tab, Oral, BID mineral oil, 133 mL, Rectal, Daily, PRN MiraLax, 17 g= 1 packets, Oral, Daily mirtazapine, 15 mg= 2 tab, Oral, every night at bedtime Mucinex, 600 mg= 1 tab, Oral, BID nystatin 100,000 units/mL oral suspension, 188738 units= 5 mL, Oral, QID ondansetron, 4 mg= 1 tab, Oral, every 6 hr, PRN Tessalon Perles, 100 mg= 1 cap, Oral, TID, PRN Tylenol, 650 mg= 2 tab, Oral, every [...] 08/02/2022 Recorded Comments : RD done at [facility] Lot: [id number] exp[facility] (tozinameran 12y+) bival 08/02/2022 Recorded Comments : Lot: [id number] Exp: 06/08/23 LD done at [facility] Electronically Signed on 12/14/23 02:16 PM Marshall Dsouza MD * Marshall Dsouza MD: PERFORM Event Display: Consultation Note Generic Authored Date: [id number] YVETTE DRAPER :1945 Age:78 years Sex:Female Visit Date:12/07/2023 Primary Care Physician: Mally Vazquez APRN Chief Complaint Flu A, weakness Reason for Consultation FOllow up PC History of Present Illness Palliative follow up: Alice has not improved.?? She is continuing to be oppositional to basic medical and nursing care.?? Not participating in PT.?? Pulling off CPAP and not using it despite persistence from staff.?? Not eating much.?? Tamia and Josias helping a lot whenever they are in.?? She is complaining of burning with urination and @ vaginal area on day #2 ceftriaxone with < 100,000 CC pending culture.? No foc al neurological deficits.?? Staff describe repetitive periods of catatonia where she just does not respond or refuses to participate at all.?? Then brief after can walk to bathroom or answer in full sentences. Speech continues to be soft, poor eye contact, constantly very tired.?? No energy, no concentration, sleeping as much as able.?? Denies suicidal intent or ideation and unconvincingly agrees wtih family she wants to get better. ?? Palliative Visit Specific Data: Primary Symptoms of Concern:Fatigue, profound associated with multisystem disease and recurrent hospitalizations.? Palliative Data:??YVETTE??is a??78 years??old??Female?? Goals and values with trade offs and unacceptables: Impaired mental status and profound cognitive and physical fatigue makes consideration of limits and wishes unclear.?? Historically very active in community, weekly uatsdin, attending race car events of her son Josias, and going out to [employer], [facility] totally independent according to children until treatment for DCIS lumpectomy, XRT and hormonal the rapy (letrozole).?? Marked decline with multiple admissions and weakness since 10/31 ?? Pertinent Palliative Medical Condition with history: 10/21-: Admit [facility] post d/c from (3 d post d/c) for weakness and mild NOVA 11/15-: weakness, mild hypoxia, N/V (transfer SNF 11/16/22): CT -> yane atypical pneumonia 11/24-: readmit PE (segmental small) --> Eliquss 12/02/23- present: readmit influenza + (PCR) and cough and weak ?? 1. 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 Repeat flare [facility] 12/02 -> 40 mg dexamethasone x 5 d with significant associated mental status changes 3. Valvular heart disease with hx MVR and AVR (TAVR)??' with 60% prox LAD lesion on cath; EF 53% 4. CKD 3b with NOVA with hospitalization 5. Type 2 DM on Jardiance 6. Asthma with possible COPD and KWAKU on CPAP ?? Additional Social History: Lived independently. Member [employer] uatsdin in [place].?? Worked at [employer]. Son Josias and his girlfriend Tamia very involved.?? Good friend Mikhail (spouse of close friend). Step adrianagraciebreanaruma Quintana and dog Angelia Carroll.?? Bashir @ 2014 ?? Pertinent Psychological History: ?? Understanding of Medical Condition:??Some understanding; Adjustment to Illness:??Prognostic information is a shock; struggling to adjust;??adjustment of primary caregiver:??Prognostic information is a shock; struggling to adjust? Spiritual History: - Denominational affiliation??Synagogue??and this has??no real??importance in medical care -??Practices to achieve sense of spirituality and peace include??Going to uatsdin, prayer daily, Rosary. ? Primary Support(s):?? Son Josias and his girlfriend who consider Alice her mother (Tamia).?? Tamia isstrong and vocal advocate and has many concerns about deficiencies and issues with prior medical care. ?? Advance Directive: Signed?? ; DPOAH: ; Alt DPOAH: ; Limitations to agent:??none; Living Will (guidance to agent):??_? Hospice Eligibility:??YVETTE DRAPER, at this time,??does not meet??medicare hospice qualifying criteria as prognosis??is not consistent with a prognosis of months.?? Specific criteria for qualification would include: continued need for hospitalization and inability to recover from??her medical condition. ?? [1] Physical Exam Vitals & Measurements T:??36.0?C ??(Temporal Artery)?? TMIN:??35.9?C ??(Temporal Artery)?? TMAX:??36.0?C ??(Temporal Artery)?? HR:??84??(Peripheral)?? RR:??18?? BP:??129/63?? SpO2:??92%?? Pain Score:??0?? O2 Flow Rate:??2?? O2 Therapy:??Nasal cannula?? 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 Orders: methylphenidate, 5 mg = 1 tab, Oral, Tab-IR, With Morning Meal, First Dose: 12/10/23 6:30:00 EST, Physician Stop, Routine mirtazapine, 15 mg = 2 tab, Oral, Tab, every night at bedtime for 30 days, First Dose: 12/09/23 21:00:00 EST, Stop Date: 01/08/24 20:59:00 EST, Physician Stop, Routine 78 yo with multi-system disease and what appears to be onset of severe major depression in setting of extensive hospitalization and repeat admit for numerous medical issues some challenging (ITP and bleeding and DVT/PE).?? Not participating with SNF at this time and on isolation for influenza day #7 now.? Recommendations include: 1. Remove from isolation: Day #7 and no further cough and likely an incidental finding as symptoms started long before + test 2. Continue to support with strong urging with PT/OT, nutrition 3. Initiate anti-depressant treatment including stimulant short term to see if we can make progress.?? Her prolonged deterioration is going to make her ability to improve less likely unless she can make a reasonably rapid initiation of recovery.?? Suggest low dose methylphenidate with start of mirtazapine at night for appetite stimulation and anti-depressant effect 4. Stop Jardiance and replace as needed with insulin due to complaints and concerns re recurrentUTI.?? Senior Engineering Specialist assessment if continued symptoms. 5. Consider psycho-geriatric options if available short term.?? (? [facility]) ?? I will see her in 48 hr for follow up.?? We discussed concerns about prognosis should her condition not stabilize and improve and potential need to move to a comfort approach if we do not see progress.?? Problem List/Past Medical History Ongoing Acquired hypothyroidism [...] abdominal hysterectomy and bilateral salpingo-oophorectomy Medications Inpatient albuterol, 90 mcg= 1 puffs, Inhale, every 4 hr, PRN atorvastatin, 10 mg= 1 tab, Oral, every evening calcium (as carbonate)-vitamin D 600 mg-400 intl units oral tablet, 1 tab, Oral, every morning cefTRIAXone, 1 g= 50 mL, IV Piggyback, every 24 hr cholecalciferol 1000 intl units oral tablet, 1000 units= 1 tab, Oral, every morning Dextrose 50% injection, 25 [...] Scale See Comments, Subcutaneous, AC & bedtime letrozole, 2.5 mg= 1 tab, Oral, every morning levothyroxine, 25 mcg= 1 tab, Oral, every morning levothyroxine, 112 mcg= 1 tab, Oral, every morning losartan, 100 mg= 2 tab, Oral, every evening melatonin 3 mg oral tablet, 6 mg= 2 tab, Oral, every evening methylphenidate, 5 mg= 1 tab, Oral, With Morning Meal Metoprolol Tartrate, 25 mg= 1 tab, Oral, BID mirtazapine, 15 mg= 2 tab, Oral, every night at bedtime Mucinex, 600 mg= 1 tab, Oral, BID ondansetron, 4 mg= 2 mL, IV Push, every 6 hr, PRN Tessalon Perles, 100 mg= 1 cap, Oral, [...] 08/02/2022 Recorded Comments : RD done at [facility] Lot: [id number] exp: 05/08/2023 [employer] SARS-CoV-2 mRNA (tozinameran 12y+) bival 08/02/2022 Recorded Comments : Lot: [id number] Exp: 06/08/23 LD done at [facility] [1]??Palliative Consult Note; Marshall Dsouza MD 12/07/2023 19:00 EST Electronically Signed on 12/10/23 09:12 AM Marshall Dsouza MD * Marshall Dsouza MD: PERFORM Event Display: Consultation Note Generic Authored Date: [id number] YVETTE DRAPER :1945 Age:78 years Sex:Female Visit Date:12/07/2023 Primary Care Physician: Mally Vazquez APRN Chief Complaint Flu A, weakness History of Present Illness Palliative Visit Specific Data: Primary Symptoms of Concern:Fatigue, profound associated with multisystem disease and recurrent hospitalizations.? Palliative Data:??YVETTE??is a??78 years??old??Female?? Goals and values with trade offs and unacceptables: Impaired mental status and profound cognitive and physical fatigue makes consideration of limits and wishes unclear.?? Historically very active in community, weekly uatsdin, attending race car events of her son Josias, and going out to [employer] totally independent according to children until treatment for DCIS lumpectomy, XRT and hormonal therapy (letrozole).?? Marked decline with multiple admissions and weakness since 10/31 ?? Pertinent Palliative Medical Condition with history: 10/21-: Admit [facility] post d/c from (3 d post d/c) for weakness and mild NOVA 11/15-: weakness, mild hypoxia, N/V (transfer SNF 11/16/22): CT -> yane atypical pneumonia 11/24-: readmit PE (segmental small) --> Eliquss 12/02/23- present: readmit influenza + (PCR) and cough and weak ?? 1. 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 Repeat flare [facility] 12/02 -> 40 mg dexamethasone x 5 d with significant associated mental status changes 3. Valvular heart disease with hx MVR and AVR (TAVR)??' with 60% prox LAD lesion on cath; EF 53% 4. CKD 3b with NOVA with hospitalization 5. Type 2 DM on Jardiance 6. Asthma with possible COPD and KWAKU on CPAP ?? Additional Social History: Lived independently. Member [employer] uats[employer] in [place].?? Worked at [employer]. Son Josias and his girlfriend Tamia very involved.?? Good friend Mikhail (spouse of close friend). Step agnes Quintana and dog Angelia Carroll.?? Bashir @ 2014 ?? Pertinent Psychological History: ?? Understanding of Medical Condition:??Some understanding; Adjustment to Illness:??Prognostic information is a shock; struggling to adjust;??adjustment of primary caregiver:??Prognostic information is a shock; struggling to adjust? Spiritual History: - Denominational affiliation??Synagogue??and this has??no real??importance in medical care -??Practices to achieve sense of spirituality and peace include??Going to uatsdin, prayer daily, Rosary. ? Primary Support(s):?? Son Josias and his girlfriend who consider Alice her mother (Tamia).?? Tamia isstrong and vocal advocate and has many concerns about deficiencies and issues with prior medical care. ?? Advance Directive: Signed?? ; DPOAH: ; Alt DPOAH: ; Limitations to agent:??none; Living Will (guidance to agent):??_? Hospice Eligibility:??YVETTE DRAPER, at this time,??does not meet??medicare hospice qualifying criteria as prognosis??is not consistent with a prognosis of months.?? Specific criteria for qualification would include: continued need for hospitalization and inability to recover from??her medical condition. ? Physical Exam Vitals & Measurements T:??36.0?C ??(Temporal Artery)?? TMIN:??35.9?C ??(Temporal Artery)?? TMAX:??36.0?C ??(Temporal Artery)?? HR:??84??(Peripheral)?? RR:??18?? BP:??129/63?? SpO2:??92%?? Pain Score:??0?? O2 Flow Rate:??1.5?? O2 Therapy:??Humidification, Nasal cannula?? Chronically ill appearing woman sitting on bed with poor eye contact, soft voice and dry lips. HEENT unremarkable.?? Tamia verbal and answers most questions unless time and support for Alice to answer.?? She answers some questions often vaguely Chest with mild diffuse yane late exp wheeze.?? No crackles HS regular Mild diffuse ext edema mostly trace ?? Assessment/Plan 1.??Pulmonary embolus??I26.99 Orders: methylphenidate, 5 mg = 1 tab, Oral, Tab-IR, With Morning Meal, First Dose: 12/10/23 6:30:00 EST, Physician Stop, Routine mirtazapine, 15 mg = 2 tab, Oral, Tab, every night at bedtime for 30 days, First Dose: 12/09/23 21:00:00 EST, Stop Date: 01/08/24 20:59:00 EST, Physician Stop, Routine 78 female with reported excellent function until decline over the latter part 2022 with multi-system disease and combination of small PE and ITP flare requiring IVIG then high dose dexamethasone associated with marked mental status decline, lack of participation in recovery.?? Alice??states she wants to get better and work to improvement with family and me in room but is not participatory with PT??or nursing even in basic tasks such as eating, drinking, cleaning, and ambulation.?? There are noclear medical drivers beyond mounting medical issues and prolonged periods of hospitalization over the past??6 weeks. ?? Unclear component of underlying causes.?? Medical condition being stabilized.?? recommend: ?? 1. Structured routine, 2. Light during the day 3. Removal from infectious precautions as soon as possible 4. Good hygiene (tooth brush, use of CPAP...) 5. Consider anti-depressant therapy?? I will follow up in 48 hr. ?? 80 min face to face patient, son and his girlfriend.?? Additional 30 imn in chart review and discussion with team Problem List/Past Medical History Ongoing Acquired hypothyroidism [...] abdominal hysterectomy and bilateral salpingo-oophorectomy Medications Inpatient albuterol, 90 mcg= 1 puffs, Inhale, every 4 hr, PRN atorvastatin, 10 mg= 1 tab, Oral, every evening calcium (as carbonate)-vitamin D 600 mg-400 intl units oral tablet, 1 tab, Oral, every morning cefTRIAXone, 1 g= 50 mL, IV Piggyback, every 24 hr cholecalciferol 1000 intl units oral tablet, 1000 units= 1 tab, Oral, every morning Dextrose 50% injection, 25 [...] Scale See Comments, Subcutaneous, AC & bedtime letrozole, 2.5 mg= 1 tab, Oral, every morning levothyroxine, 25 mcg= 1 tab, Oral, every morning levothyroxine, 112 mcg= 1 tab, Oral, every morning losartan, 100 mg= 2 tab, Oral, every evening melatonin 3 mg oral tablet, 6 mg= 2 tab, Oral, every evening methylphenidate, 5 mg= 1 tab, Oral, With Morning Meal Metoprolol Tartrate, 25 mg= 1 tab, Oral, BID mirtazapine, 15 mg= 2 tab, Oral, every night at bedtime Mucinex, 600 mg= 1 tab, Oral, BID ondansetron, 4 mg= 2 mL, IV Push, every 6 hr, PRN Tessalon Perles, 100 mg= 1 cap, Oral, [...] Never. Employment/School Retired Home/Environment Lives with Alone, Max Ferrara stays at her house when needed. . Living situation: Home with assistance. Home equipment: Walker. Substance Use Never Tobacco Never tobacco user Tobacco Use:. Family History Breast cancer: Mother and Aunt/Uncle. Cancer: Son. Heart: Mother and Father. Immunizations Vaccine Date Status influenza virus vaccine, inactivated 08/02/2022 Recorded Comments : RD done at [facility] Lot: [id number] exp: 05/08/2023 Sanofi SARS-CoV-2 mRNA (tozinameran 12y+) bival 08/02/2022 Recorded Comments : Lot: [id number] Exp: 06/08/23 LD done at [facility] Electronically Signed on 12/10/23 08:49 AM Marshall Dsouza MD manager science Note * Renata Edmond: PERFORM Event Display: Case Management Note Authored Date: [id number] * Renata Edmond: PERFORM Event Display: Case Management Note Authored Date: [id number] * Renata Edmond: PERFORM Event Display: Case Management Note Authored Date: [id number] Nutrition and dietetics Progress note * Kerry Joseph: PERFORM Event Display: Nutrition Note Authored Date: [id number] Assessment and Monitoring Nutrition Follow Up ?? 78 yo F admit with Flu, weakness. Having decreased appetite/ some lethargy. Followed by palliative care as well. Started on Remeron and methylphenidate. Eating a little better today- drank 100% protein shake, ~half muffin/cheerios per staff. Was up brushing teeth and seemed to be more alert today. Still says fair appetite but again,seems to have some improvement. On Regular diet, blood sugars <200 past couple days except 1 >200. Continue to monitor- as noted don't want to to over restrict given poor intakes/weight loss. Can adjust diet order as indicated. Monitoring. Reason for Visit Flu A, weakness Problem List/Past Medical History Ongoing Acquired hypothyroidism [...] Lymphedema Mild stress incontinence Mitral regurgitation Neuropathy Nocturnal hypoxemia Normocytic anemia Obstructive sleep apnea Osteoarthritis Peripheral vascular disease, unspecified Pharyngoesophageal dysphagia Pulmonary embolus Vitamin D deficiency Vocal cord paralysis, unilateral complete Xerostomia Historical GERD - Gastro-esophageal reflux disease NHL - Non-Hodgkin's lymphoma Procedure/Surgical History ???Arthroplasty Knee (Left) (08/12/2022)???Aortic valve [...] Mother and Father. Diet Orders Diet Order, 12/07/23 12:00:00 EST, Regular Allergies Flomax??(Dizziness) narcotic analgesics sulfa drugs??(Rash, Hallucinations) Nutrition Lab Results Test Name Test Result Date/Time WBC 10.7 K/mcL 12/09/2023 08:00 EST Hgb 10.4 g/dL 12/09/2023 08:00 EST Hct 31.7 % 12/09/2023 08:00 EST MCV 83.2 fL 12/09/2023 08:00 EST Platelets 81 K/mcL 12/09/2023 08:00 EST Sodium Level 144 mmol/L 12/09/2023 08:41 EST Potassium Level 4.2 mmol/L 12/09/2023 08:41 EST Chloride Level 106 mmol/L 12/09/2023 08:41 EST CO2 30 mmol/L 12/09/2023 08:41 EST Alk Phos 60 IntlUnit/L 12/09/2023 08:41 EST ALT 18 IntlUnit/L 12/09/2023 08:41 EST BUN 37 mg/dL 12/09/2023 08:41 EST Glucose Level 156 mg/dL 12/09/2023 08:41 EST Creatinine Level 1.20 mg/dL 12/09/2023 08:41 EST Albumin Level 3.5 g/dL 12/09/2023 08:41 EST Bilirubin Total 1.3 mg/dL 12/09/2023 08:41 EST Medications Inpatient albuterol, 90 mcg= 1 puffs, Inhale, every 4 hr, PRN atorvastatin, 10 mg= 1 tab, Oral, every evening calcium (as carbonate)-vitamin D 600 mg-400 intl units oral tablet, 1 tab, Oral, every morning cholecalciferol 1000 intl units oral tablet, 1000 units= 1 tab, Oral, every morning Dextrose 50% injection, 25 [...] Scale See Comments, Subcutaneous, AC & bedtime letrozole, 2.5 mg= 1 tab, Oral, every morning levothyroxine, 25 mcg= 1 tab, Oral, every morning levothyroxine, 112 mcg= 1 tab, Oral, every morning losartan, 50 mg= 1 tab, Oral, every evening melatonin 3 mg oral tablet, 6 mg= 2 tab, Oral, every evening methylphenidate, 5 mg= 1 tab, Oral, With Morning Meal Metoprolol Tartrate, 25 mg= 1 tab, Oral, BID mirtazapine, 15 mg= 2 tab, Oral, every night at bedtime Mucinex, 600 mg= 1 tab, Oral, BID nystatin 100,000 units/mL oral suspension, [id number] units= 5 mL, Oral, QID ondansetron, 4 mg= 2 mL, IV Push, every 6 hr, PRN Tessalon Perles, 100 mg= 1 cap, Oral, [...] tab, Oral, every morning Electronically Signed on 12/11/23 12:13 PM Kerry Joseph * Kerry Joseph: PERFORM Event Display: Nutrition Note Authored Date: [id number] Assessment and Monitoring ?? Reason for Referral:??Nutrition [place] probable inadequate ? Nutrition Assessment: ?? 78 yo F admit with Flu and weakness. Changed to swing bed status. PMH significant for T2DM, HLD, HTN, hypothyroid, thrombocytopenia. ??Patient??resting and??minimal response to questions.??Not at baseline from previous visits with patient at other admissions.??not eating much,??tried a smoothie forlunch today. 0-25% per documentation. Offering protein shakes as well.?? Gradually losing weight over the past year, ~8kg,??-8% x 1 month,??clinically significant weight loss. ??Now with??decreased intakes, <50% estimated needs. sounds like palliative care will be involved in plan of care. Having some elevated blood??sugars mid 100s- 200s. but not eating, at this time more concerned withgetting adequate nutrition/at risk protein??loss. would rec to liberalize diet to??maximize protein/calories intakes.??On Jardiance and SSI right now, could adjust if tighter glycemic control indicated. on ABT and was on high dose prednisone as well, was stopped after improvement in thrombocytopenia . ? Monitor/Evaluation:?? Nutrition Diagnosis Severe Malnutrition in the context of acute illness r/t inadequate oral intakes as evidenced by <50% estimated need since admission in hospital, lost ~8% weight loss x 1 month, has had frequent admissions in the past month and not feeling well (+Flu, PE last month, CHF exacerbation) Nutrition Goals Improved po/luids intakes >50% of meals labs wnl skin w/o open areas No s/sx aspiration Nutrition Interventions Liberalize diet to Regular Enc good pos/fluids accepts offer smoothie/protein shakes assist room service/ set up update preferences as able Reason for Visit Flu A, weakness Problem List/Past Medical History Ongoing Acquired hypothyroidism [...] Mother and Father. Diet Orders Diet Order, 12/07/23 12:00:00 EST, Heart Healthy, Medium (1,700-2,000 katerine) 75g CHO Allergies Flomax??(Dizziness) narcotic analgesics sulfa drugs??(Rash, Hallucinations) Medications Inpatient albuterol, 90 mcg= 1 puffs, Inhale, every 4 hr, PRN atorvastatin, 10 mg= 1 tab, Oral, every evening calcium (as carbonate)-vitamin D 600 mg-400 intl units oral tablet, 1 tab, Oral, every morning cefTRIAXone, 1 g= 50 mL, IV Piggyback, every 24 hr cholecalciferol 1000 intl units oral tablet, 1000 units= 1 tab, Oral, every morning Dextrose 50% injection, 25 [...] Scale See Comments, Subcutaneous, AC & bedtime Jardiance, 10 mg= 1 tab, Oral, every morning letrozole, 2.5 mg= 1 tab, Oral, every morning levothyroxine, 25 mcg= 1 tab, Oral, every morning levothyroxine, 112 mcg= 1 tab, Oral, every morning losartan, 100 mg= 2 tab, Oral, every evening melatonin 3 mg oral tablet, 6 mg= 2 tab, Oral, every evening Metoprolol Tartrate, 25 mg= 1 tab, Oral, BID Mucinex, 600 mg= 1 tab, Oral, BID ondansetron, 4 mg= 2 mL, IV Push, every 6 hr, PRN Tessalon Perles, 100 mg= 1 cap, Oral, [...] tab, Oral, every morning Electronically Signed on 12/09/23 03:19 PM Kerry Joseph Progress note * Omero Dewitt MD: PERFORM, MODIFY Event Display: Progress Note - Physician Authored Date: [id number] BONNY YVETTE Chaitanya :1945 Age:78 years Sex:Female Visit Date:12/07/2023 Primary Care Physician: Mally Vazquez APRN Subjective No acute events overnight.?? Patient reports feeling well. ??She does report some constipation.?? Denies cough shortness of breath nausea vomiting??fevers chills. Objective Vitals & Measurements T:??36.4?C ??(Temporal Artery)?? TMIN:??36.3?C ??(Temporal Artery)?? TMAX:??36.4?C ??(Temporal Artery)?? HR:??83??(Peripheral)?? BP:??111/46?? SpO2:??98%?? Pain Score:??0?? O2 Flow Rate:??1?? O2 Therapy:??Humidification, Nasal cannula?? Physical Exam General: Alert and oriented, well nourished,?No??acute distress Psychiatric: Cooperative, appropriate mood and affect Head: Normocephalic, atraumatic Eye: Normal conjunctivae pupils equal and round ENT:??slightly dry??mucous membranes normal pharynx normal nose Lungs:??Clear to auscultation??symmetrical chest wall expansion, no use of accessory respiratory muscles Heart:??Regular rate and rhythm no murmurs GI:??Soft, nontender, nondistended, positive bowel sounds. ??No appreciable organomegaly?? : No suprapubic or flank tenderness Musculoskeletal:??Moves all 4 extremities, good range of motion. ??2+ radial and pedal pulses bilaterally.?? No cyanosis or clubbing or edema Skin: Warm, dry, intact. ??No rash Assessment/Plan 1.??Pulmonary embolus??I26.99 On Eliquis,??stable. ??Denies any chest pain or shortness of breath 2.??Major depression, recurrent??F33.9 Started on methylphenidate??on 12/10 by palliative care??with improvement??in energy and appetite.?? Mirtazapine also added at bedtime. Orders: bisacodyl, 10 mg = 1 supp, Rectal, Supp, Daily for 30 days, PRN constipation, First Dose: 12/12/23 14:42:00 EST, Stop Date: 01/11/24 14:41:00 EST, Physician Stop, Routine mineral oil, 133 mL, Rectal, Enema, Daily for 30 days, PRN constipation, First Dose: 12/13/23 10:41:00 EST, Stop Date: 01/12/24 10:40:00 EST, Physician Stop, Routine ondansetron, 4 mg = 1 tab, Oral, Tab-Dis, every 6 hr, PRN nausea/vomiting, First Dose: 12/12/23 15:50:00 EST, Routine, zofran MiraLax, 17 g = 1 packets, Oral, Powder-Recon, Daily for 30 days, First Dose: 12/12/23 15:00:00 EST, Stop Date: 01/11/24 8:59:00 EST, Physician Stop, Routine 3. ??Constipation.?? Patient already on??twice daily??Senokot. ??Added daily MiraLAX with as neededbisacodyl suppository??and??as needed mineral oil enema 4.?? Hypertension, dyslipidemia, hypothyroidism, GERD. ??Stable. ??Home meds continued. Electronically Signed on 12/13/23 01:15 PM Omero Dewitt MD Electronically Signed on 12/13/23 01:17 PM Omero Dewitt MD * Marshall Dsouza MD: PERFORM, MODIFY, MODIFY Event Display: Progress Note - Physician Authored Date: [id number] YVETTE DRAPER :1945 Age:78 years Sex:Female Visit Date:12/07/2023 Primary Care Physician: Mally Vazquez APRN Subjective Palliative Visit Specific Data: Primary Symptoms of Concern:Fatigue, profound associated with multisystem disease and recurrent hospitalizations.? Day #9 rehospitalization on SNF with recent initiation of methylphenidate SA daily low dose and mirtazapine at hs for major depression??with signs of improvement.?? Taken off precautions.?? Alert andhad a better morning yesterday per family and case mgt but worse over course of the day.?? Today participating this am with meds, brushing teeth, cleaning and looks bright and more cheerful.?? Smiles.?? Understands she needs rehab and wishes to proceed.?? Would consider psychogeriatric treatment / [facility]??if not responding to mood treatment. ?? Burning vaginal area improved off Jardiance ?? Palliative Data:??YVETTE??is a??78 years??old??Female?? Goals and values with trade offs and unacceptables: Impaired mental status and profound cognitive and physical fatigue makes consideration of limits and wishes unclear.?? Historically very active in community, weekly uatsdin, attending race car events of her son Josias, and going out to [employer], [facility]ated [facility] totally independent according to children until treatment for DCIS lumpectomy, XRT and hormonal therapy (letrozole).?? Marked decline with multiple admissions and weakness since 10/31 ?? Pertinent Palliative Medical Condition with history: 10/21-: Admit [facility] post d/c from (3 d post d/c) for weakness and mild NOVA 11/15-: weakness, mild hypoxia, N/V (transfer SNF 11/16/22): CT -> yane atypical pneumonia 11/24-: readmit PE (segmental small) --> Eliquis 12/02/23- present: readmit influenza + (PCR) and cough and weak ?? 1. 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 Repeat flare [facility] 12/02 -> 40 mg dexamethasone x 5 d with significant associated mental status changes 3. Valvular heart disease with hx MVR and AVR (TAVR)?? with 60% prox LAD lesion on cath; EF 53% 4. CKD 3b with NOVA with hospitalization 5. Type 2 DM on Jardiance 6. Asthma with possible COPD and KWAKU on CPAP ?? Additional Social History: Lived independently. Member [employer] u[employer] in [place].?? Worked at [employer]. Son Josias and his girlfriend Tamia very involved.?? Good friend Mikhail (spouse of close friend). Step daughter Lilian and dog Little william Carroll.?? Bashir @ 2014 ?? Pertinent Psychological History: ?? Understanding of Medical Condition:??Some understanding; Adjustment to Illness:??Prognostic information is a shock; struggling to adjust;??adjustment of primary caregiver:??Prognostic information is a shock; struggling to adjust? Spiritual History: - Denominational affiliation??[employer]agogue??and this has??no real??importance in medical care -??Practices to achieve sense of spirituality and peace include??Going to uatsdin, prayer daily, Rosary. ? Primary Support(s):?? Son Josias and his girlfriend who consider Alice her mother (Tamia).?? Tamia isstrong and vocal advocate and has many concerns about deficiencies and issues with prior medical care. ?? Advance Directive: Signed??Oct?2016??; DPOAH: Josias, son; Alt DPOAH: Deepali Ghosh; Limitations to agent:??none; [place] DPOAH done and requested no life sustaining ?? Rediscussion of code status with son.?? Still wishes to remain full code but wishes limits and would not want to proceed with aggressive medical care if outlook is grim.?? Will reconsider P-DNR and this should be reviewed moving forward ?? Hospice Eligibility:??YVETTE DRAPER, at this time,??does not meet??medicare hospice qualifying criteria as prognosis??is not consistent with a prognosis of months.?? Specific criteria for qualification would include: continued need for hospitalization and inability to recover from??her medical condition. Objective Vitals & Measurements T:??36.1?C ??(Temporal Artery)?? TMIN:??36?C ??(Temporal Artery)?? TMAX:??36.3?C ??(Temporal Artery)?? HR:??94??(Peripheral)?? RR:??16?? BP:??99/43?? SpO2:??100%?? Pain Score:??0?? O2 Flow Rate:??1.5?? O2 Therapy:??Nasal cannula?? Physical Exam Alice is sitting upright, clean and alert. ??She smiles. Head neck exam reveals moist mucous membranes, improved HSV 1 lesions on lips. Her chest is clear without any wheezing??and mild??crackles to the lower bases that seem to improvewith deep respirations. Her heart sounds are regular without murmur or extra sound. Her extremities reveal trace edema. ??She moves all 4 extremities.?? She has normal sensation in the 4 extremities. Her demeanor is more upbeat??and interactive.?? She agrees to rehabilitation??and states she will participate. Assessment/Plan 1.??Pulmonary embolus??I26.99 Stabilized on Eliquis and tolerating it without signs of bleeding. ??Controlled ITP.?? BP running on lower end.?? HR still 80-100 range.?? Will maintain metoprolol at low dose and lower losartan to 50 mg.?? Continue to monitor VS.?? May be best to hold metoprolol due to severe depression and low BPbut may require for rate control.?? 2.??Major depression, recurrent??F33.9 Day 3 of short acting low-dose methylphenidate and mirtazapine 15 mg at at bedtime.?? Able to remove precautions and get her up and moving more frequently.?? Showing signs of improvement. ??More engaged??and willing to participate. ?? I would recommend slightly increasing methylphenidate??last dose??mid afternoon.?? I would continuemirtazapine at night. ??If not significant response in 1 to 2 weeks, the addition of a morning SSRIor bupropion which she was previously on may be considered.?? Methylphenidate should be weaned??andremoved once atypical/SSRI or SNRI??have achieved adequate??effect and she is participating consistently in??treatment.?? Time the methylphenidate with or after meals??for breakfast and lunch. ?? Recommend??aggressive PT/OT over the next few days??and ambulation as she tolerates.?? Psychogeriatric treatment if not consistently improving. ?? Recommend??review??resuscitation status and consider POLST.?? This would best be done once depression is adequately treated.?? In any case patient would not want aggressive intervention prolonged??should she not have reasonable chance??to improve to some level of independence. ?? 15 minutes [id number] with the patient with an additional??20 minutes in discussion with the medical team. Electronically Signed on 12/11/23 11:57 AM Marshall Dsouza MD Electronically Signed on 12/11/23 12:00 PM Marshall Dsouza MD Electronically Signed on 12/11/23 12:04 PM Marshall Dsouza MD Discharge summary * David Flores MD: PERFORM, MODIFY Event Display: Discharge Summary Authored Date: [id number] YVETTE DRAPER :1945 Age:78 years Sex:Female Visit Date:12/07/2023 Primary Care Physician: Mally Vazquez APRN Hospital Course 78-year-old female??with??a SNF admission our hospital. ??Please see??inpatient??discharge summary??where she was here for influenza and weakness and ITP flare.?? Her major issues while being stiff status for??work and??with palliative care on her depression??as well as??some poor appetite and intak e??and??acute on chronic kidney function??that we will need follow-up in about 5 days with another renal panel.?? We stopping her??losartan as well as??Lasix??for at least the next week??until her??creatinine is downtrending.?? She will be going to geropsych to??continue working on medications which so far have shown??some improvement.?? Last palliative care note summarized below with quotations ? 78 yo female with extensive medical illness now stabilized and significant functional decline after extended hospitalizations complicated by major depression and now signs of frailty.?? Improving slightly.? Would strongly benefit from specialty level psychiatric and potential group therapy or focused counseling in addition to pharmacological management.?? Also will require exercise therapy.??Presently stand by assist on O2 with a risk of medical decline. ?? Suggest referral for brief stay at [facility] if available or SNF rehab with psychiatric support and care.?? Unclear what best possible functional level is.?? Should have further discussions regarding code status and goals of care once mood improved and able to better participate.?? Have discussedmy concerns with son Josias and patient regarding the low likelihood of benefit and high degree of harm associated with aggressive treatment such as intubation and CPR.? 1. 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 on letrozole followed DH 2. 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 Repeat flare [facility] 12/02 -> 40 mg dexamethasone x 5 d with significant associated mental status changes 3. Valvular heart disease with hx MVR and AVR (TAVR)??'21 with 60% prox LAD lesion on cath; EF 53% 4. CKD 3b with NOVA with hospitalization 5. Type 2 DM on Jardiance 6. Asthma with possible COPD and KWAKU on CPAP [1] Starting to show some signs of response.?? Continue on methylphenidate and will increase dose slightly to 3 times daily last dose 3 pm.?? Continue mirtazapine and suggest dose increase in @ 1 week if incomplete response.?? Consider AM bupropion restart.?? Defer to next provider and suggest specialty level recommendations and oversight. ?? Physical Exam Vitals & Measurements T:??36.2?C ??(Temporal Artery)?? TMIN:??36.2?C ??(Temporal Artery)?? TMAX:??36.3?C ??(Temporal Artery)?? HR:??85??(Peripheral)?? RR:??18?? BP:??102/51?? SpO2:??91%?? HT:??165.1??cm?? WT:??85.64??kg?? BMI:??31.42?? Pain Score:??0?? O2 Flow Rate:??1?? O2 Therapy:??Humidification, Nasal cannula?? General:??Alert and oriented, No acute distress though frail appearing Eye:??PERRL, EOMI, normal conjunctiva Lungs:??Clear to auscultation and percussion, Non-labored respiration Heart:??Normal rate, Normal rhythm, No murmur, No gallop Abdomen:??Soft, non-tender, non-distended, normal bowel sounds, no masses Symmetric minimal bilateral lower extremity edema Patient is globally weak??though moves all extremities??normal sensation. Procedure/Surgical History ???Arthroplasty Knee (Left) (08/12/2022)???Aortic valve [...] Lab Results Labs??(Last four charted values) WBC ?9.4?(FEB 07)?7.6?(FEB 04)?10.7?(DEC 09) Hgb ?L??10.8?(FEB 07)?L??10.3?(FEB 04)?L??10.4?(DEC 09) Hct ?L??34.3?(FEB 07)?L??31.8?(FEB )?L??31.7?(DEC 09) Plt ?173?(FEB )?L??120?(FEB )?L??81?(DEC 09) Na ?137?(FEB 08)?136?(FEB )?136?(FEB )?144?(DEC 09) K ?4.0?(FEB 08)?4.2?(FEB 07)?3.7?(FEB 04)?4.2?(DEC 09) CO2 ?30?(FEB 08)?29?(FEB 07)?30?(FEB 04)?30?(DEC 09) Cr ?H??2.50?(FEB 08)?H??2.60?(FEB 07)?H??2.10?(FEB 04)?1.20?(DEC 09) BUN ?H??60?(FEB 08)?H??61?(FEB 07)?H??59?(FEB 04)?H??37?(DEC 09) Glucose Random ?H??153?(FEB 08)?H??210?(FEB 07)?H??144?(FEB 04)?H??156?(DEC 09) Diagnostic Results X-Ray:?? Computed Tomography:?? No qualifying data available. Ultrasound: ?? US Kidney Bladder ?? 12/17/23 13:18:08 EXAM DESCRIPTION: US Kidney Bladder ?? 12/17/2023 ?? INDICATION: EVAL ACUTE ON CHRONIC RENAL FAILURE ?? TECHNIQUE: Technique: Grayscale and color doppler ultrasound examination of the kidney and bladder region. ?? COMPARISON: 09/07/2023 ?? FINDINGS: The left kidney measures 4.2 cm x 11 cm x 4.9 cm. ?? The right kidney measures 5 cm x 11.6 cm x 5 cm. ?? Upper pole of the left kidney partly obscured by presumed bowel gas. Otherwise no focal renal mass, hydronephrosis or perinephric fluid collection on either side ?? The bladder was decompressed and not well evaluated. ? IMPRESSION: Renal sizes as described above ?? Upper pole of the left kidney partly obscured by presumed bowel gas. Otherwise no focal renal mass, hydronephrosis or perinephric fluid collection on either side. ? JOB #: [id number] Electronically Signed By: ?? Signed By: Kishore Parra MD MRI:?? Echo:?? Mammography:? Bone Densitometry:?? No qualifying data available. Discharge Plan 1.??Pulmonary embolus??I26.99 Doing well on Eliquis would continue indefinitely at this point given??non provoked pulmonary emboli. Ordered: Lactated Ringers Injection 1,000 mL, Total Volume (mL): 1,000, 1,000 mL, Soln- IV, IV, 150 mL/hr, Order Duration: 30 days, Start Date: 12/16/23 16:03:00 EST, Stop Date: 01/15/24 16:02:00 EST, 91 kg, Populate Charting Weight From Order, 2.04, m2 ?? 2.??Major depression, recurrent??F33.9 Appreciate??help from palliative care??currently on mirtazapine 15 mg at bedtime??question is really get in the way of her getting stronger??and thriving and she will be going to [facility] for continued treatment??this. Ordered: Lactated Ringers Injection 1,000 mL, Total Volume (mL): 1,000, 1,000 mL, Soln- IV, IV, 150 mL/hr, Order Duration: 30 days, Start Date: 12/16/23 16:03:00 EST, Stop Date: 01/15/24 16:02:00 EST, 91 kg, Populate Charting Weight From Order, 2.04, m2 ?? 3.??Chronic renal insufficiency??N18.9 Baseline has some??CKD??with creatinine around 1.2 or 1.3.?? She has been as high as the low 3s before. ??She has an acute kidney injury over the last week??likely from??dehydration while on Lasix and not eating and drinking much??over the course of the last week.?? Her creatinine was 2.6 yesterdayup from 2.1 few days prior.?? We gave her gentle hydration??we stopped her Lasix??and her losartan??and her creatinine is down to 2.5 and??her renal ultrasound shows no obstruction.?? Recommend??checking??another renal panel in 5 days. Her urinalysis is normal, overall fits highly with pre-renal azotemia from not taking in much while on lasix. ---lasix is stopped. ?? ----Check renal panel in 5 days ?? 4.??Idiopathic thrombocytopenia??D69.3 This is a longstanding problem of hers??on admission had an influenza induced??ITP flare. ??See last discharge summary from inpatient but??4 days of??high-dose Decadron??resolved this and her platelets have remained normal.?? No indication for further checking ?? 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 on letrozole followed ?? 6.??Diabetes mellitus type 2??E11.9 Overall no issues with this even on high-dose steroids her blood sugars were okay ?? Orders: docusate-senna 50 mg-8.6 mg oral tablet, 2 tab, Oral, BID, 0 Refill(s) Mucinex 600 mg oral tablet, extended release, 600 mg = 1 tab, Oral, BID, 0 Refill(s) melatonin 3 mg oral tablet, 6 mg = 2 tab, Oral, every evening, 0 Refill(s) methylphenidate 5 mg oral tablet, 7.5 mg = 1.5 tab, Oral, BID, 0 Refill(s) mirtazapine 7.5 mg oral tablet, 15 mg = 2 tab, Oral, every night at bedtime, 0 Refill(s) MiraLax, 17 g = 1 packets, Oral, TID, 0 Refill(s) All Diagnoses This Visit Pulmonary embolus Major depression, recurrent Chronic renal insufficiency Idiopathic thrombocytopenia Ductal carcinoma in situ (DCIS) of left breast Diabetes mellitus type 2 Discharge Disposition to [facility] Patient Education Major Depressive Disorder, Adult Follow Up With When Contact Information Mally Vazquez APRN Within 1 month [address] [place] [address] [phone] Additional Instructions: Medication Reconciliation New Prescription docusate-senna (docusate-senna 50 mg-8.6 mg oral tablet)2 tab Oral (given by mouth) 2 times a day. ?? guaiFENesin (Mucinex 600 mg oral tablet, extended release)1 tab Oral (given by mouth) 2 times a day. ?? melatonin (melatonin 3 mg oral tablet)2 tab Oral (given by mouth) every evening. ?? methylphenidate (methylphenidate 5 mg oral tablet)1.5 tab Oral (given by mouth) 2 times a day. ?? mirtazapine (mirtazapine 7.5 mg oral tablet)2 tab Oral (given by mouth) every night at bedtime. ?? polyethylene glycol 3350 (MiraLax)17 Gram Oral (given by mouth) 3 times a day. ?? Unchanged albuterol (Albuterol (Eqv-Proventil HFA) [...] Oral (given by mouth) every morning. ?? lactobacillus acidophilus (Acidophilus)1 tab Oral (given [...] on an empty stomach. Refills: 3. ?? metoprolol (metoprolol tartrate 25 mg oral tablet)1 tab Oral (given by mouth) 2 times a day for 90 Days. Refills: 3. ?? multivitamin (multivitamin adult, oral tablet)1 tab Oral (given by mouth) every morning. ?? ubiquinone (Coenzyme Q10 100 mg oral capsule)1 Capsules Oral (given by mouth) every morning. ?? Discontinued furosemide (furosemide 40 mg oral tablet)1 tab Oral (given by mouth) every morning. Refills: 3. ?? gabapentin (gabapentin 100 mg oral capsule)1 Capsules Oral (given by mouth) every day for 90 Days. Refills: 3. ?? losartan (losartan 100 mg oral tablet)1 tab Oral (given by mouth) every evening. Refills: 3. ?? One Touch Ultra Test Strips (Please provide one touch ultra test strips)For blood glucose monitoring once daily.. Refills: 3. Electronically Signed on 12/18/23 08:29 AM David Flores MD Patient Care team information Care Team Personnel Name: Sanaz Fang APRN, Position: Physician Member Role: Nurse Practitioner Address: Address: [address] [place] [address] Name: Anabel Hallman APRN Position: Physician Member Role: Nurse Practitioner Address: Address: [address] [place] [address] Name: Mally Vazquez APRN Position: Physician Member Role: Primary Care Physician Address: Address: [address] [place] [address] Care Team Related Persons Name: LAURA LEON
--- OUTSIDE RECORDS SUMMARY | 2024-04-25 04:10 | XMS_ITS | Continuity of Care Document ---
Author Name Unknown Organization [facility] Ambulatory Clinics Address [address] [place] [address] Care Team Providers Care Corporate Intern Name Role Phone Mally Vazquez APRN Primary Care Physician Encounter [facility] NBR [id number] Date(s): 04/08/23 - 04/08/23 [facility] Ambulatory Clinics [address] [place] [address]- [place] Discharge Disposition: Home Allergies, Adverse Reactions, Alerts Substance Reaction Severity Status narcotic analgesics Unknown Active sulfa drugs Rash Hallucinations Unknown Active Flomax Dizziness Unknown Active Assessment and Plan Future Appointments Future Scheduled Tests Radiology* US Breast Limited Left 04/13/23 * MG Mammo Diagnostic Left 04/13/23 Immunizations Given and Recorded Vaccine Date Status Refusal Reason influenza virus vaccine, inactivated 1 08/02/22 Re corded SARS-CoV-2 mRNA (tolaminn 12y+) bival 2 08/02/22 Recorded 1Result Comment: RD done at [facility] Lot: [id number] exp: 05/08/2023 [employer] 2Result Comment: Lot: [id number] Exp: 06/08/23 LD done at [facility] Medications Acidophilus Probiotic Blend 1 cap, Oral, Daily, 0 Refill(s) Start Date: 08/11/22 Status: Ordered Albuterol (Eqv-Proventil HFA) 90 mcg/inh inhalation aerosol 1 puffs, Inhale, every 4 hr, PRN as needed for wheezing, Do not exceed 12 inhalations in a 24-hour period., # 1 EA, 0 Refill(s), Pharmacy: [id number], 170, cm, 11/11/22 12:19:00 EST, [...] taking., # 12 tab, 1 Refill(s), Pharmacy: [facility]... Start Date: 02/03/23 Stop Date: 07/21/23 Status: Ordered aspirin 81 mg oral delayed release tablet 81 mg = 1 tab, Oral, Daily, # 30 tab, 0 Refill(s) Start Date: 01/05/23 Status: Ordered atorvastatin 10 mg oral tablet 10 mg = 1 tab, Oral, every evening, # 90 tab, 3 Refill(s), Pharmacy: [facility],114.09, cm, 08/12/22 16:18:00 EDT, [...] 03/24/2023, # 90 tab, 0 Refill(s), Pharmacy: [id number], 170, cm, 11/11/22 12:19:00 EST, [...] morning, # 90 tab, 3 Refill(s), Pharmacy: [facility],114.09, cm, 08/12/22 16:18:00 EDT, [...] Daily, # 90 tab, 3 Refill(s), Pharmacy: [facility], 114.09, cm, 08/12/22 16:18:00 EDT, Height/Length Dosing, 165, kg, 08/12/22 16:18:00 EDT, Weight Dosing Start Date: 10/24/22 Stop Date: 10/19/23 Status: Ordered metFORMIN 500 mg oral tablet 500 mg = 1 tab, Oral, every evening, # 90 tab, 3 Refill(s), Pharmacy: [facility], 114.09, cm, 08/12/22 16:18:00 EDT, Height/Length Dosing, 165, kg, 08/12/22 16:18:00 EDT, Weight Dosing Start Date: 10/24/22 Stop Date: 10/19/23 Status: Ordered metoprolol tartrate 25 mg oral tablet 25 mg = 1 tab, Oral, BID, # 180 tab, 3 Refill(s), Pharmacy: [facility], 114.09, cm, 08/12/22 16:18:00 [...] Safety Implantable Status Assigning Authority Unknown NA [id number] Unknown 08/07/24 Unknown Unknown Active Unknown Unknown N/A [id number] 2 Unknown 06/10/32 Unknown Unknown Active Unknown Unknown NA [id number] 1 Unknown 04/01/27 Unknown Unknown Active Unknown Unknown N/A [id number] 2 Unknown 12/07/31 Unknown Unknown Active Unknown Unknown N/A [id number] 2 Unknown 12/15/26 Unknown Unknown Active Unknown Patient Care team information Care Team Personnel Name: Sanaz Fang APRN, Position: Physician Member Role: Nurse Practitioner Address: Address: [address] [place] [address] Name: Anabel Hallman APRN Position: Physician Member Role: Nurse Practitioner Address: Address: [address] [place] [address] Name: Mally Vazquez APRN Position: Physician Member Role: Primary Care Physician Address: Address: [address] [place] [address] Care Team Related Persons Name: LAURA LEON Address: Home
--- OUTSIDE RECORDS SUMMARY | 2024-04-25 04:10 | XMS_ITS | Continuity of Care Document ---
Author Name Unknown Organization [facility] Ambulatory Clinics Address [address] [place] [address] Care Team Providers Care Manager [employer] Name Role Phone Mally Vazquez APRN Primary Care Physician [phone] Encounter [facility] FIN NBR [id number] Date(s): 11/24/23 - 11/24/23 [facility] Ambulatory Clinics [address] [place], [place] [phone]- [place] Encounter Diagnosis Normocytic anemia(Discharge Diagnosis) - 11/24/23 Colon arteriovenous malformation(Discharge Diagnosis) - 11/24/23 H/O adenomatous polyp of colon(Discharge Diagnosis) - 11/24/23 Dyspnea(Discharge Diagnosis) - 11/24/23 Discharge Disposition: Home or Self Care Attending Physician: Elliott Pacheco MD Referring Physician: Asya Aquino PA-C Allergies, Adverse Reactions, [...] 08/02/22 Recorded 1Result Comment: RD done at [facility] Lot: [id number] exp: 05/08/2023 [employer] 2Result Comment: Lot: [id number] Exp: 06/08/23 LD done at [facility] Medications Acidophilus 1 tab, Oral, every morning Start Date: 11/15/23 Status: Ordered Albuterol (Eqv-Proventil HFA) 90 mcg/inh inhalation aerosol 1 puffs, Inhale, every 4 hr, PRN as needed for wheezing, Do not exceed 12 inhalations in a 24-hour period., # 1 EA, 0 Refill(s), Pharmacy: [id number], 170, cm, 11/11/22 12:19:00 EST, [...] taking., # 12 tab, 1 Refill(s), Pharmacy: [facility], 170, cm, 11/11/22 12:19:00 EST, Height/Length Dosing, 96, kg, 11/11/22 12:19:00 EST, Weight Dosing Start Date: 07/21/23 Stop Date: 01/05/24 Status: Ordered atorvastatin 10 mg oral tablet 10 mg = 1 tab, Oral, every evening, # 90 tab, 3 Refill(s), Pharmacy: [facility],114.09, cm, 08/12/22 16:18:00 EDT, Height/Length [...] for constipation Start Date: 11/15/23 Status: Ordered famotidine 20 mg oral tablet 20 mg = 1 tab, Oral, BID, 0 Refill(s) Start Date: 04/22/23 Status: Ordered folic acid 1 mg oral tablet 1 mg = 1 tab, Oral, every morning, 0 Refill(s) Start Date: 10/20/23 Status: Ordered furosemide 40 mg oral tablet 1 tab, Oral, every morning, # 90 tab, 3 Refill(s), Pharmacy: [facility], 165, cm, 09/24/23 19:47:00 EST, Height, 102.2, kg, 09/24/23 19:47:00 EST, Weight Dosing Start Date: 10/13/23 Status: Ordered gabapentin 100 mg oral capsule 100 mg = 1 cap, Oral, Daily, # 90 cap, 3 Refill(s), Pharmacy: [facility], 165, cm, 09/24/23 19:47:00 EST, [...] morning, # 30 tab, 3 Refill(s), Pharmacy: [id number], 165.1, cm, 11/14/23 22:52:00 EST, [...] stomach, # 90 tab, 3 Refill(s), Pharmacy: [facility], 170, cm, 11/11/22 12:19:00 EST, Height/Length Dosing, 96, kg, 11/11/22 12:19:00 EST, Weight Dosing Start Date: 04/14/23 Status: Ordered losartan 100 mg oral tablet 1 tab, Oral, every evening, # 90 tab, 3 Refill(s), Pharmacy: [facility], 165, cm, 09/24/23 19:47:00 EST, Height, 102.2, kg, 09/24/23 19:47:00 EST, Weight Dosing Start Date: 10/01/23 Status: Ordered metoprolol tartrate 25 mg oral tablet 25 mg = 1 tab, Oral, BID, # 180 tab, 3 Refill(s), Pharmacy: [facility], 170, cm,11/11/22 12:19:00 EST, Height/Length [...] instructions, # 100 EA, 3 Refill(s), Pharmacy: [facility] Start Date: 10/23/23 Status: Ordered [...] Range]: 1 Peripheral Pulse Rate [60-100 bpm] 94 bp m (11/24/23 8:36 AM) Blood Pressure [90-140/60-90 mmHg] 90/50 mmHg (11/24/23 8:36 AM) Mean Arterial Pressure, Cuff [70-110 mmH g] 63 mmHg *LOW* (11/24/23 8:36 AM) Weight 93.8 kg (11/24/23 8:36 AM) Weight Measured (lbs) 206.793 lb (11/24/23 8:36 AM) Weight Dosing 93.800 kg (11/24/23 8:36 AM) Social History Social History Type Response Tobacco Never tobacco user T obacco Use:. 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 Katlyn Hallman, DO 08/12/22 Non Biological Knee L Device Identifier Serial Number Lot or Batch Number Manufacturing Date Expiration Date Distinct Identification Code MRI Safety Implantable Status Assigning Authority Unknown NA [id number] Unknown 08/07/24 Unknown Unknown Active Unknown Unknown N/A [id number] 2 Unknown 06/10/32 Unknown Unknown Active Unknown Unknown NA [id number] 1 Unknown 04/01/27 Unknown Unknown Active Unknown Unknown N/A [id number] 2 Unknown 12/07/31 Unknown Unknown Active Unknown Unknown N/A [id number] 2 Unknown 12/15/26 Unknown Unknown Active Unknown Physician Outpatient Note * Elliott Pacheco MD: PERFORM Event Display: Office Clinic Note Physician Authored Date: [id number] YVETTE DRAPER :1945 Age:78 years Sex:Female Visit Date:11/24/2023 Primary Care Physician: Mally Vazquez APRN Chief Complaint Short of breath. History of Present Illness 78-year-old female??patient of??Mally Vazquez APRN??with a history of breast cancer,??congestive heart failure,??recent admission??to this hospital for CHF??exacerbation,??acute on chronic kidney injury,??and??pneumonia.?? Patient follows with Dr. Ferrer, status post TAVR. ??Her last cardiology visit was 5 months ago.?? Patient was discharged??from this hospital??on the eighth of this month.?? Patient was referred to GI for??anemia.?? Her hemoglobin??on discharge was 8.3 with normocytic indices.?? White count was 17.3 with 124,000 platelets.?? Her creatinine was 1.3 down from 1.8. ??On 11/06/2023 ferritin was 54, TIBC 420. ??B12 and folate were normal.? Patient's last EGD and colonoscopy on 01/28/2018. ??EGD for GERD showed a 3 cm hiatal hernia??without evidence of??H. pylori infection. ??Duodenal biopsies were not performed.?? Colonoscopy screening revealed grade 1 external hemorrhoids??and a diminutive tubular adenoma.?? She was found to have an A VM??in the rectosigmoid junction??that was nonbleeding and was left intact.?? Her last documented normal hemoglobin was on??11/04/2021 with a hemoglobin of 13.3.?? On 11/11/2022 her hemoglobin was 12??on 10/21/2023 hemoglobin was 9.5. ??Patient denies being seen by hematology for this reason but has been??seen by oncology for history of breast cancer??2 years ago. ??She is currently on letrozole. ?? Patient is??brought in by her son.?? Patient has dyspnea on walking??several feet.?? Patient??iscurrently dyspneic at rest. ??She denies chest pain.?? She denies black or bloody stools or change in bowel habits. ??She moves her bowels daily to every other day. ??She has no heartburn, regurgitation.?? Patient is on famotidine??20 mg twice daily.?? She denies abdominal pain. Review of Systems Pertinent positives and negatives documented in the HPI. Physical Exam Vitals & Measurements HR:??94??(Peripheral)?? BP:??90/50?? SpO2:??98%?? WT:??93.8??kg?? Obese white female??was dyspneic sitting in the chair, accessory muscle use Lungs: Clear to auscultation bilaterally Heart: Regular rhythm Abdomen: Normoactive bowel sounds, soft, nontender, no masses organomegaly Extremities:??Trace bipedal??edema?? Assessment/Plan 1.??Normocytic anemia??D64.9 No definite evidence of iron deficiency although??with ferritin??below 100,??iron deficiency cannotbe ruled out especially with the??high normal TIBC.?Anemia may be multifactorial including hypoproliferative anemia??in the setting of chronic kidney disease. ??Would recommend??EGD and colonoscopy.?? Patient has a history of??AVM??documented on her previous colonoscopy,??raising the question of??other??vascular ectasias throughout the GI tract.?? However,??if related to??aortic stenosis,??AVMs are less likely??following??aortic valve replacement.?AVMs are also more common in chronic kidney disease but usually??in end-stage renal disease.?? GI workup is to be deferred??pending??resolution??of pulmonary issues. 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 3.??H/O adenomatous polyp of colon??Z86.010 Due for repeat??colonoscopy for adenoma surveillance.?? See above. 4.??Dyspnea??R06.00 Patient was advised that??GI workup will need to be deferred??given her??respiratory??complaints??which have worsened??since she was discharged.?? Patient was taken by??wheelchair to the emergency room.?Question symptomatic anemia??versus??decompensated heart failure??versus pneumonia.?? I spokewith Dr. Terry??in the ER??regarding this patient. Problem List/Past Medical History Ongoing Acquired hypothyroidism [...] Total abdominal hysterectomy and bilateral salpingo-oophorectomy Medications Acidophilus, 1 tab, Oral, every morning Albuterol [...] 100 mg= 1 tab, Oral, BID, PRN doxycycline monohydrate 100 mg oral capsule, 100 mg= 1 cap, Oral, BID famotidine 20 mg oral tablet, [...] mg= 1 tab, Oral, BID, 3 refills Mucinex 600 mg oral tablet, extended release, 1200 mg= 2 tab, Oral, BID multivitamin adult, oral tablet, 1 tab, Oral, every morning Please provide one touch ultra test strips, See instructions, 3 refills Tessalon Perles 100 mg oral capsule, 100 mg= 1 cap, Oral, TID Vitamin C 500 mg oral tablet, 500 [...] 08/02/2022 Recorded Comments : RD done at [facility] Lot: [id number] exp: 05/08/2023 [employer] SARS-CoV-2 mRNA (tozinameran 12y+) bival 08/02/2022 Recorded Comments : Lot: [id number] Exp: 06/08/23 LD done at [facility] Electronically Signed on 11/24/23 09:12 AM Elliott Pacheco MD Patient Care team information Care Team Personnel Name: Sanaz Fang APRN, Position: Physician Member Role: Nurse Practitioner Address: Address: [address] [place] [address] Name: Anabel Hallman APRN Position: Physician Member Role: Nurse Practitioner Address: Address: [address] [place] [address] Name: Mally Vazquez APRN Position: Physician Member Role: Primary Care Physician Address: Address: [address] [place] [address] [place] Care Team Related Persons Name: LAURA LEON
--- OUTSIDE RECORDS SUMMARY | 2024-04-25 04:10 | XMS_ITS | Continuity of Care Document ---
Author Name Unknown Organization [facility] Ambulatory Clinics Address [address] [place] [address] Care Team Providers Care Bobbin Coil Winder Name Role Phone Mally Vazquez APRN Primary Care Physician [phone] Encounter [facility] NBR [id number] Date(s): 01/06/24 - 01/06/24 [facility] Ambulatory Clinics [address], [place] [id number] Encounter Diagnosis Diabetic polyneuropathy associated with type 2 diabetes mellitus(Discharge Diagnosis) - 01/06/24 Diabetes mellitus type 2(Discharge Diagnosis) - 01/06/24 Physical deconditioning(Discharge Diagnosis) - 01/06/24 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) - Other malaise(Final) - shelter (current) use of oral hypoglycemic drugs(Final) - Discharge Disposition: Home or Self Care Attending Physician: Mamadou Redmond DO Allergies, Adverse Reactions, Alerts Substance Reaction Severity Status narcotic analgesics 1 Unknown Active sulfa drugs Rash Hallucinations Unknown Active Flomax Dizziness Unknown Active 1coma for 4 days . unsure what they got Assessment and Plan Extracted from: Title:Office Visit Note Author:Mamadou Redmond DO Date:01/06/24 1.??Diabetic polyneuropathy associated with type 2 diabetes mellitus??E11.42 I believe it is medically necessary for her??to have diabetic shoes, to reduce the risk of??ulcerations and other wounds on her feet. ?? 2.??Diabetes mellitus type 2??E11.9 Recheck her labs. Ordered: Comprehensive Metabolic Panel, Blood, Routine, 01/06/24, Once, Lab Collect, Diabetes mellitus type 2, Order for future visit Hgb A1c, Blood, Routine, 02/28/24, Once, Lab Collect, Diabetes mellitus type 2, Order for future visit ?? 3.??Physical deconditioning??R53.81 Will refer to PT for further evaluation and treatment considerations. ?? Orders: Albuterol (Eqv-Proventil HFA) 90 mcg/inh inhalation aerosol, 1 puffs, Inhale, every 4 hr, PRN as needed for wheezing, Do not exceed 12 inhalations in a 24-hour period., # 3 EA, 2 Refill(s), Pharmacy: [facility], 165, cm, 12/02/23 18:39:00 EST, Height, 97.2, kg, 01/06/24 10:04:00 EST, Weight D... Future Appointments Future Scheduled Tests Laboratory* Comprehensive Metabolic Panel 01/06/24 * Comprehensive Metabolic Panel 09/18/23 * Hgb A1c 01/06/24 Radiology* US Kidney Bladder 08/31/23 Immunizations Given and Recorded Vaccine Date Status Refusal Reason influenza virus vaccine, inactivated 1 08/02/22 Re corded SARS-CoV-2 mRNA (tovalentinoeran 12y+) bival 2 08/02/22 Recorded 1Result Comment: RD done at [facility] Lot: [id number] exp: 05/08/2023 [employer] 2Result Comment: Lot: [id number] Exp: 06/08/23 LD done at [facility] Medications Acidophilus 1 tab, Oral, every morning Start Date: 11/15/23 Status: Ordered Albuterol (Eqv-Proventil HFA) 90 mcg/inh inhalation aerosol 1 puffs, Inhale, every 4 hr, PRN as needed for wheezing, Do not exceed 12 inhalations in a 24-hour period., # 3 EA, 2 Refill(s), Pharmacy: [facility], 165, cm, 12/02/23 18:39:00 EST, [...] taking., # 12 tab, 1 Refill(s), Pharmacy: [facility], 170, cm, 11/11/22 12:19:00 EST, Height/Length Dosing, 96, kg, 11/11/22 12:19:00 EST, Weight Dosing Start Date: 07/21/23 Stop Date: 01/05/24 Status: Ordered atorvastatin 10 mg oral tablet 10 mg = 1 tab, Oral, every evening, # 90 tab, 3 Refill(s), Pharmacy: [facility],114.09, cm, 08/12/22 16:18:00 EDT, Height/Length [...] BID, # 60 tab, 0 Refill(s), Pharmacy: [id number], 165, cm, 11/24/23 16:14:00 EST, Height, 93, [...] morning, # 30 tab, 3 Refill(s), Pharmacy: [facility] #[id number], 165.1, cm, 11/14/23 22:52:00 EST, [...] stomach, # 90 tab, 3 Refill(s), Pharmacy: [facility], 170, cm, 11/11/22 12:19:00 EST, Height/Length Dosing, 96, kg, 11/11/22 12:19:00 EST, Weight Dosing Start Date: 04/14/23 Status: Ordered melatonin 3 mg oral tablet 6 mg = 2 tab, Oral, every evening, 0 Refill(s) Start Date: 12/17/23 Status: Ordered metoprolol tartrate 25 mg oral tablet 25 mg = 1 tab, Oral, BID, # 180 tab, 3 Refill(s), Pharmacy: [facility], 170, cm,11/11/22 12:19:00 EST, Height/Length [...] Range]: 1 Peripheral Pulse Rate [60-100 bpm] 86 bp m (01/06/24 9:54 AM) Blood Pressure [90-140/60-90 mmHg] 132/7 0mmHg (01/06/24 9:54 AM) Mean Arterial Pressure, Cuff [65-140 mmH g] 91 mmHg (01/06/24 9:54 AM) Weight 97.2 kg (01/06/24 9:54 AM) Weight Measured (lbs) 214.289 lb (01/06/24 9:54 AM) Weight Dosing 97.200 kg (01/06/24 9:54 AM) Social History Social History Type Response Tobacco Never tobacco user T obacco Use:. 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 Katlyn Hallman DO 08/12/22 Non Biological Knee L Device Identifier Serial Number Lot or Batch Number Manufacturing Date Expiration Date Distinct Identification Code MRI Safety Implantable Status Assigning Authority Unknown NA [id number] Unknown 08/07/24 Unknown Unknown Active Unknown Unknown N/A [id number] Unknown 06/10/32 Unknown Unknown Active Unknown Unknown NA [id number] Unknown 04/01/27 Unknown Unknown Active Unknown Unknown N/A [id number] Unknown 12/07/31 Unknown Unknown Active Unknown Unknown N/A [id number] Unknown 12/15/26 Unknown Unknown Active Unknown Hospital Discharge Instructions Follow Up Care 01/04/2024 08:59:07 With:Mally Vazquez APRN Address: [address] [place] [phone] When: Unknown Comments:as scheduled Physician Outpatient Note * Mamadou Redmond, DO: PERFORM Event Display: Office Clinic Note Physician Authored Date: [id number] YVETTE DRAPER :1945 Age:78 years Sex:Female Visit Date:01/06/2024 Primary Care Physician: Mally Vazquez APRN Chief Complaint Patient here today..asking for a prescription for shoes... History of Present Illness ?? Patient is a 78-year-old female who comes in today??because she needs diabetic shoes.?Sees podiatry.?? She is a diabetic. ??She has neuropathy.?? Has had some??calluses on her feet.?? Denies any ulcers. Musculoskeletal:??Has been in and out of the hospital quite a bit.?? Trying to regain her strength.?? Would like to work with physical therapy. Review of Systems See HPI otherwise negative. Physical Exam Vitals & Measurements HR:??86??(Peripheral)?? BP:??132/70?? SpO2:??93%?? WT:??97.2??kg?? General: Alert and oriented, well nourished,?No??acute distress Lungs: Clear to auscultation and percussion,?Non-labored?? respiration Heart:?Normal? rate,?Regular??rhythm,?No??murmur,?No??gallop,?No??edema Abdomen: Soft, non-tender, non-distended,?Normal? bowel sounds,?No??masses Musculoskeletal:?Normal? range of motion and strength,?No??tenderness,?No??swelling. ??She does have??the beginnings of calluses??on some of her toes. Assessment/Plan 1.??Diabetic polyneuropathy associated with type 2 diabetes mellitus??E11.42 I believe it is medically necessary for her??to have diabetic shoes, to reduce the risk of??ulcerations and other wounds on her feet. ?? 2.??Diabetes mellitus type 2??E11.9 Recheck her labs. Ordered: Comprehensive Metabolic Panel, Blood, Routine, 01/06/24, Once, Lab Collect, Diabetes mellitus type 2, Order for future visit Hgb A1c, Blood, Routine, 01/06/24, Once, Lab Collect, Diabetes mellitus type 2, Order for future visit ?? 3.??Physical deconditioning??R53.81 Will refer to PT for further evaluation and treatment considerations. ?? Orders: Albuterol (Eqv-Proventil HFA) 90 mcg/inh inhalation aerosol, 1 puffs, Inhale, every 4 hr, PRN as needed for wheezing, Do not exceed 12 inhalations in a 24- hour period., # 3 EA, 2 Refill(s), Pharmacy:[facility], 165, cm, 12/02/23 18:39:00 EST, Height, 97.2, kg, 01/06/24 10:04:00 EST, Weight D... Future Orders Comprehensive Metabolic Panel, Blood, Routine, 01/06/24, Once, Lab Collect, Diabetes mellitus type 2, Order for future visit Hgb A1c, Blood, Routine, 01/06/24, Once, Lab Collect, Diabetes mellitus type 2, Order for future visit Referral Orders Referral Management, Medical Service: Physical Therapy, Reason: deconditioning, Refer To: Provider Not Specified, [facility], --., Start: 01/06/24 Follow Up Instructions With When Contact Information Mally Vazquez, TELESCOPE OPERATOR [address] [place] [address] [phone] Additional Instructions: as scheduled Problem List/Past Medical History Ongoing Acquired hypothyroidism [...] aerosol, 1 puffs, Inhale, every 4 hr, PRN, 2 refills alendronate 70 mg oral tablet, 70 mg= 1 tab, Oral, Thursday, 1 refills atorvastatin 10 mg oral tablet, 10 mg= 1 tab, Oral, every evening, 3 refills buPROPion 150 mg/24 hours (XL) oral tablet, extended release, 150 mg= 1 tab, Oral, every 24 hr Calcium 600+D 600 mg-200 intl units oral tablet, 1 tab, Oral, every morning Coenzyme Q10 100 mg oral capsule, 100 mg= 1 cap, Oral, every morning Diabetic footwear, See instructions docusate sodium 100 mg oral tablet, 100 mg= 1 tab, Oral, BID, PRN docusate-senna 50 mg-8.6 mg oral tablet, 2 tab, Oral, BID Eliquis 5 mg oral tablet, 5 mg= 1 tab, Oral, BID famotidine 20 mg oral tablet, 20 mg= 1 tab, Oral, BID folic acid 1 mg oral tablet, 1 mg= 1 tab, Oral, every morning HOME CPAP, See instructions HOME OXYGEN - 2 Liters, See instructions Jardiance 10 mg oral tablet, 1 tab, Oral, every morning lansoprazole 30 mg oral delayed release capsule, 30 mg= 1 cap, Oral, every morning letrozole 2.5 mg oral tablet, 2.5 mg= 1 tab, Oral, every morning levothyroxine 137 mcg (0.137 mg) oral tablet, 137 mcg= 1 tab, Oral, every morning, 3 refills melatonin 3 mg oral tablet, 6 mg= 2 tab, Oral, every evening metoprolol tartrate 25 mg oral tablet, 25 mg= 1 tab, Oral, BID, 3 refills MiraLax, 17 g= 1 packets, Oral, TID mirtazapine 7.5 mg oral tablet, 15 mg= 2 tab, Oral, every night at bedtime Mucinex 600 mg oral tablet, extended release, 600 mg= 1 tab, Oral, BID multivitamin adult, oral tablet, 1 tab, Oral, every morning omeprazole 20 mg oral delayed release capsule, 20 mg= 1 cap, Oral, Daily sertraline 50 mg oral tablet, 50 mg= 1 tab, Oral, Daily Vitamin C 500 mg oral tablet, 500 [...] 08/02/2022 Recorded Comments : RD done at [facility] Lot: [id number] [facility] (tozinameran 12y+) bival 08/02/2022 Recorded Comments : Lot: [id number] Exp: 06/08/23 LD done at [facility] Electronically Signed on 01/06/24 01:08 PM Mamadou Redmond, Patient Care team information Care Team Personnel Name: Sanaz Fang APRN, Position: Physician Member Role: Nurse Practitioner Address: Address: [address] [place] [address] Name: Anabel Hallman APRN Position: Physician Member Role: Nurse Practitioner Address: Address: [address] [place] [address] Name: Mally Vazquez APRN Position: Physician Member Role: Primary Care Physician Address: Address: [address] [place] [address] [place] Care Team Related Persons Name: LAURA LEON
--- OUTSIDE RECORDS SUMMARY | 2024-04-25 04:10 | XMS_ITS | Continuity of Care Document ---
Author Name Unknown Organization [facility] Address [address] [place] [id number] Care Team Providers Care Title Agent Name Role Phone Belgica Farr MD Primary Care Physician Encounter [facility] NBR [id number] Date(s): 11/11/22 - 11/16/[address] [id number]- Encounter Diagnosis Hypercapnic respiratory failure(Discharge Diagnosis) - 11/11/22 Asthma(Discharge Diagnosis) - 11/11/22 Thrombocytopenia(Discharge Diagnosis) - 11/11/22 Diabetes mellitus type 2(Discharge Diagnosis) - 11/11/22 Cardiomyopathy, dilated(Discharge Diagnosis) - 11/11/22 Acute kidney injury(Discharge Diagnosis) - 11/11/22 Infection(Discharge Diagnosis) - 11/11/22 Elevated liver enzymes(Discharge Diagnosis) - 11/11/22 SVT (supraventricular tachycardia)(Discharge Diagnosis) - 11/13/22 Hoarseness(Discharge Diagnosis) - 11/16/22 Discharge Disposition: Home or Self Care Attending Physician: Nii Moon MD Admitting Physician: Nii Moon MD Allergies, Adverse Reactions, Alerts Substance Reaction Severity Status sulfa drugs Rash Hallucinations Unknown Active Flomax Dizziness Unknown Active Assessment and Plan Future Appointments Functional Status 11/16/22 Lunch Percent 100 11/16/22 Breakfast Percent 100 11/16/22 Personal Care Provided Diaper/Brief bryan ged, Gown change, Underpad change 11/16/22 Activity Status ADL Up to toilet 11/15/22 ADLs Moderate assistance 11/14/22 Dinner Percent 100 11/14/22 Anti-Embolism Device Activity: Removed Anti-Embolism Device Removal Reason: Act ivity 1 Anti-Embolism Site Condition: No complic ations 11/13/22 Living Environment Home Environment Devices/Equipment at Home: Walker Performed By: Renata Edmond 11/12/2022 Lives In: Single level home Performed By: Erika Barrientos 11/11/2022 Lives With: Child(nilam) Performed By: Erika Barrientos 11/11/2022 Living Situation: Home independently Performed By: Erika Barrientos 11/11/2022 Prior ADL Status Independent Prior Mobility Status Independent Prior Instrumental ADL Level Independent Prior Cognitive-Communication Skills Ind ependent 11/13/22 Home Living Additional Information patie nt states she has a RW at home but doesn't use it; also states her son has been staying with her but she is ind within her home Lives In Single level home Lives With Child(nilam) 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 Rehab Persona l ADL 11/12/22 Home Equipment Walker 11/11/22 Home Barriers None 11/11/22 Family Member Travel History No recent t ravel Recent Travel History No recent travel Other exposure to Infectious Disease COV ID-19 Symptoms Present 1Result Comment: pt in chair Immunizations Given and Recorded Vaccine Date Status Refusal Reason influenza virus vaccine, inactivated 1 08/02/22 Re corded SARS-CoV-2 mRNA (tozinameran 12y+) bival 2 08/02/22 Recorded 1Result Comment: RD done at [facility] Lot: [id number] exp: 05/08/2023 [employer]i 2Result Comment: Lot: [id number] Exp: 06/08/23 LD done at [facility] Medications !-Augmentin 875 mg-125 mg oral tablet 1 tab, Oral, every 12 hr, # 4 tab, 0 Refill(s), called to pharmacy (Rx) Start Date: 11/16/22 Stop Date: 11/18/22 Status: Ordered Acidophilus Probiotic Blend 1 cap, Oral, Daily, 0 Refill(s) Start Date: 08/11/22 Status: Ordered alendronate 70 mg oral tablet 70 mg = 1 tab, Oral, every week, typically takes on Thursday, # 12 tab, 0 Refill(s), Pharmacy: [facility], 114.09, cm, 08/12/22 16:18:00 EDT, Height/Length Dosing, 165, kg, 08/12/22 16:18:00 EDT, Weight Dosing Start Date: 11/06/22 Status: Ordered Aspirin Enteric Coated 325 mg = 1 tab, Oral, BID, 0 Refill(s) Start Date: 08/21/22 Status: Ordered atorvastatin 10 mg oral tablet 10 mg = 1 tab, Oral, every evening, # 90 tab, 3 Refill(s), Pharmacy: [facility],114.09, cm, 08/12/22 16:18:00 EDT, Height/Length [...] morning, # 90 tab, 3 Refill(s), Pharmacy: [facility],114.09, cm, 08/12/22 16:18:00 EDT, Height/Length Dosing, 165, kg, 08/12/22 16:18:00 EDT, Weight Dosing Start Date: 10/24/22 Stop Date: 10/19/23 Status: Ordered gabapentin 100 mg oral capsule 100 mg = 1 cap, Oral, BID, # 180 cap, 1 Refill(s), Pharmacy: [facility], 114.09,cm, 08/12/22 16:18:00 EDT, Height/Length Dosing, 165, kg, 08/12/22 16:18:00 EDT, Weight Dosing Start Date: 10/24/22 Stop Date: 04/22/23 Status: Ordered ipratropium-albuterol 0.5 mg-2.5 mg/3 mL [...] Daily, # 90 tab, 3 Refill(s), Pharmacy: [facility], 114.09, cm, 08/12/22 16:18:00 EDT, Height/Length Dosing, 165, kg, 08/12/22 16:18:00 EDT, Weight Dosing Start Date: 10/24/22 Stop Date: 10/19/23 Status: Ordered metFORMIN 500 mg oral tablet 500 mg = 1 tab, Oral, every evening, # 90 tab, 3 Refill(s), Pharmacy: [facility], 114.09, cm, 08/12/22 16:18:00 EDT, Height/Length Dosing, 165, kg, 08/12/22 16:18:00 EDT, Weight Dosing Start Date: 10/24/22 Stop Date: 10/19/23 Status: Ordered metoprolol tartrate 25 mg oral tablet 25 mg = 1 tab, Oral, BID, # 180 tab, 3 Refill(s), Pharmacy: [facility], 114.09, cm, 08/12/22 16:18:00 EDT, [...] 0 Refill(s) Start Date: 09/16/22 Status: Ordered Mental Status 11/14/22 Eye Opening Response Chichi Spontaneous ly Best Verbal Response Cypress Oriented Best Motor Response Cypress Obeys comman ds Chichi Coma Score 15 11/11/22 Response to Current Year Correct Response to Current Month Correct Response to Current Time Correct Problem List Condition Confirmation Course Effective Dates [...] Results Laboratory List Name Date Glucose POCT 11/16/22 C-Reactive Protein 11/16/22 Lactic Acid 11/16/22 Basic Metabolic Panel (BMP) 11/16/22 Glucose POCT 11/15/22 Urinalysis with Micro if Indicated and C ulture if Indicated 11/15/22 Urinalysis Microscopic 11/15/22 Glucose POCT 11/15/22 Basic Metabolic Panel (BMP) 11/15/22 Hepatic Function Panel 11/15/22 Magnesium Level 11/15/22 C-Reactive Protein 11/15/22 Lactic Acid 11/15/22 Blood Gas Venous 11/14/22 Automated Diff 11/14/22 Basic Metabolic Panel (BMP) 11/14/22 C-Reactive Protein 11/14/22 CBC w/ Diff 11/14/22 Hepatic Function Panel 11/14/22 Lactic Acid 11/14/22 Magnesium Level 11/14/22 PTT 11/14/22 TSH w/ Rflx to Free T4 11/14/22 Blood Gas Venous 11/13/22 Blood Gas Venous 11/13/22 Automated Diff 11/13/22 .Morphology (LTTL) 11/13/22 CBC w/ Diff 11/13/22 Hepatic Function Panel 11/13/22 Magnesium Level 11/13/22 PTT 11/13/22 Staph Nasal Complete (GeneXpert) (MRSA/M SSA Nasal (GeneXpert)) 11/12/22 Troponin-I 11/12/22 Automated Diff 11/12/22 .Morphology (LTTL) 11/12/22 CBC w/ Diff 11/12/22 CMV Abs IgG/IgM LC 11/12/22 PTT 11/12/22 Troponin-I 11/11/22 Creatinine Urine 11/11/22 Legionella Antigen Urine 11/11/22 Magnesium Level Urine 11/11/22 Sodium Level Urine 11/11/22 Streptococcus Pneumoniae Antigen Urine Urea Nitrogen Urine 11/11/22 Blood Gas Arterial 11/11/22 Troponin-I 11/11/22 Blood Gas Arterial 11/11/22 Hepatitis A Antibody IgM 11/11/22 Hepatitis B Core Antibody IgM 11/11/22 Hepatitis B Surface Antigen 11/11/22 Hepatitis C Antibody 11/11/22 Mononucleosis Screen 11/11/22 Phosphorus Level 11/11/22 Procalcitonin 11/11/22 .Morphology (LTTL) 11/11/22 PT/ INR 11/11/22 Respiratory Panel 2.1 (BioFire) 11/11/22 SARS-CoV-2 (Covid-19) AG (Rena) POCT 11/11/22 Most recent to oldest [Reference Range]: 1 2 3 pCO2 Art [35.0-48.0 mmHg] 56.0 mmHg *HI* (11/11/22 5:40 PM) 53.0 mmHg *HI* (11/11/22 4:03 PM) pH Art [7.35-7.45 pH unit(s)] 7.30 pH un it(s) *LOW* (11/11/22 5:40 PM) 7.34 pH unit(s) *LOW* (11/11/22 4:03 PM) pO2 Art 92.0 *NA* (11/11/22 5:40 PM) 167.0 *NA* (11/11/22 4:03 PM) WBC [4.8-10.8 K/mcL] 13.0 K/mcL *HI* (11/14/22 4:00 AM) 14.5 K/mcL *HI* (11/13/22 5:20 AM) 17.6 K/mcL *HI* (11/12/22 5:05 AM) RBC [4.20-6.10 Million/mcL] 3.63 Million /mcL *LOW* (11/14/22 4:00 AM) 3.60 Million/mcL *LOW* (11/13/22 5:20 AM) 3.96 Million/mcL *LOW* (11/12/22 5:05 AM) Neutro Auto [42.2-75.2 %] 86.8 % *HI* (11/14/22 4:00 AM) 90.4 % *HI* (11/13/22 5:20 AM) 92.1 % *HI* (11/12/22 5:05 AM) Lymph Auto [20.5-51.1 %] 3.6 % *LOW* (11/14/22 4:00 AM) 4.6 % *LOW* (11/13/22 5:20 AM) 4.4 % *LOW* (11/12/22 5:05 AM) Mcclain Auto [1.7-9.3 %] 4.6 % (11/14/22 4:00 AM) 2.8 % (11/13/22 5:20 AM) 2.4 % (11/12/22 5:05 AM) Basophil Auto [0.0-0.8 %] 0.3 % (11/14/22 4:00 AM) 0.2 % (11/13/22 5:20 AM) 0.3 % (11/12/22 5:05 AM) Prothrombin Time [9.1-10.6 seconds] 10.9 seconds *HI* (11/11/22 12:28 PM) INR [0.9-1.1] 1.1 (11/11/22 12:28 PM) BUN [8-26 mg/dL] 54 mg/dL *HI* (11/16/22 5:30 AM) 55 mg/dL *HI* (11/15/22 11:35 AM) 61 mg/dL *HI* (11/14/22 4:00 AM) Glucose POC 151 *NA* (11/16/22 7:37 AM) 211 *NA* (11/15/22 8:46 PM) 173 *NA* (11/15/22 5:16 PM) UA Color [Yellow] Yellow (11/15/22 7:50 PM) UA WBC [0-3] 0-3 (11/15/22 7:50 PM) Glucose Level [74-106 mg/dL] 166 mg/dL *HI* (11/16/22 5:30 AM) 212 mg/dL *HI* (11/15/22 11:35 AM) 219 mg/dL *HI* (11/14/22 4:00 AM) Potassium Level [3.5-5.1 mmol/L] 4.9 mmol/L (11/16/22 5:30 AM) 4.3 mmol/L (11/15/22 11:35 AM) 3.8 mmol/L (11/14/22 4:00 AM) Baso Absolute [0.0-0.2 K/mcL] 0.0 K/mcL (11/14/22 4:00 AM) 0.0 K/mcL (11/13/22 5:20 AM) 0.0 K/mcL (11/12/22 5:05 AM) MCV [80.0-99.0 fL] 91.7 fL (11/14/22 4:00 AM) 91.9 fL (11/13/22 5:20 AM) 94.7 fL (11/12/22 5:05 AM) UA Urobilinogen [0.2] 0.2 (11/15/22 7:50 PM) RBC Morph [Normal] Abnormal *ABN* (11/13/22 5:20 AM) Abnormal *ABN* (11/12/22 5:05 AM) Normal (11/11/22 12:28 PM) UA Bili [Negative] Negative (11/15/22 7:50 PM) CO2 Total Venous [22.0-26.0 mmol/L] 29.7 mmol/L *HI* (11/14/22 9:10 AM) 29.7 mmol/L *HI* (11/13/22 3:40 PM) 29.2 mmol/L *HI* (11/13/22 11:01 AM) CRP [0.0-9.9] 21.2 *HI* (11/16/22 5:32 AM) 41.0 *HI* (11/15/22 4:30 AM) 86.2 *HI* (11/14/22 4:00 AM) UA Ketones [Negative] Negative (11/15/22 7:50 PM) Legionella Ag Ur [Negative] Negative (11/11/22 9:03 PM) HCO3 Venous [22.0-29.0 mmol/L] 28.2 mmol/L (11/14/22 9:10 AM) 28.2 mmol/L (11/13/22 3:40 PM) 27.7 mmol/L (11/13/22 11:01 AM) AST [15-41 IntlUnit/L] 67 IntlUnit/L *HI* (11/15/22 11:35 AM) 95 IntlUnit/L *HI* (11/14/22 4:00 AM) 169 IntlUnit/L *HI* (11/13/22 5:20 AM) ALT [14-54 IntlUnit/L] 204 IntlUnit/L *HI* (11/15/22 11:35 AM) 238 IntlUnit/L *HI* (11/14/22 4:00 AM) 287 IntlUnit/L *HI* (11/13/22 5:20 AM) MCHC [32.0-36.0 g/dL] 30.9 g/dL *LOW* (11/14/22 4:00 AM) 30.8 g/dL *LOW* (11/13/22 5:20 AM) 29.6 g/dL *LOW* (11/12/22 5:05 AM) Osmolality [275-295 mOsm/kg] 309 mOsm/kg *HI* (11/16/22 5:30 AM) 297 mOsm/kg *HI* (11/15/22 11:35 AM) 298 mOsm/kg *HI* (11/14/22 4:00 AM) Troponin-I [<=0.05 ng/mL] 0.65 ng/mL 1 *CRIT* (11/12/22 7:20 PM) 1.48 ng/mL 2 *CRIT* (11/11/22 9:15 PM) 1.63 ng/mL 3 *CRIT* (11/11/22 4:40 PM) Sodium Level [134-143 mmol/L] 146 mmol/L *HI* (11/16/22 5:30 AM) 138 mmol/L (11/15/22 11:35 AM) 137 mmol/L (11/14/22 4:00 AM) UA RBC [0-3] 25-50 *ABN* (11/15/22 7:50 PM) UA Leuk Est [Negative] Negative (11/15/22 7:50 PM) Lymph Absolute [1.2-3.4 K/mcL] 0.5 K/mcL *LOW* (11/14/22 4:00 AM) 0.7 K/mcL *LOW* (11/13/22 5:20 AM) 0.8 K/mcL *LOW* (11/12/22 5:05 AM) UA Nitrite [Negative] Negative (11/15/22 7:50 PM) UA Glucose [Negative] Negative (11/15/22 7:50 PM) Hct [37.0-52.0 %] 33.3 % *LOW* (11/14/22 4:00 AM) 33.1 % *LOW* (11/13/22 5:20 AM) 37.5 % (11/12/22 5:05 AM) Hypochromia 1+ *ABN* (11/13/22 5:20 AM) 1+ *ABN* (11/12/22 5:05 AM) Partial Thromboplastin Time [21.3-28.4 seconds] 34.3 seconds *HI* (11/14/22 4:00 AM) 27.4 seconds (11/13/22 5:20 AM) 28.3 seconds (11/12/22 5:05 AM) Calcium Level [8.9-10.3 mg/dL] 8.3 mg/dL *LOW* (11/16/22 5:30 AM) 7.9 mg/dL *LOW* (11/15/22 11:35 AM) 7.7 mg/dL *LOW* (11/14/22 4:00 AM) Mcclain Absolute [0.1-0.6 K/mcL] 0.6 K/mcL (11/14/22 4:00 AM) 0.4 K/mcL (11/13/22 5:20 AM) 0.4 K/mcL (11/12/22 5:05 AM) Phosphorus Level 4.4 *NA* (11/11/22 12:35 PM) Albumin Level [3.5-5.0 g/dL] 3.1 g/dL *LOW* (11/15/22 11:35 AM) 2.9 g/dL *LOW* (11/14/22 4:00 AM) 3.0 g/dL *LOW* (11/13/22 5:20 AM) Protein Total [6.5-8.1 g/dL] 6.5 g/dL (11/15/22 11:35 AM) 6.0 g/dL *LOW* (11/14/22 4:00 AM) 6.2 g/dL *LOW* (11/13/22 5:20 AM) UA Protein [Negative] Negative (11/15/22 7:50 PM) MCH [27.0-31.0 pg] 28.4 pg (11/14/22 4:00 AM) 28.3 pg (11/13/22 5:20 AM) 28.0 pg (11/12/22 5:05 AM) Magnesium Level [1.8-2.5 mg/dL] 2.0 mg/dL (11/15/22 11:35 AM) 2.0 mg/dL (11/14/22 4:00 AM) 2.0 mg/dL (11/13/22 5:20 AM) Neutro Absolute [1.4-6.5 K/mcL] 11.3 K/mcL *HI* (11/14/22 4:00 AM) 13.1 K/mcL *HI* (11/13/22 5:20 AM) 16.2 K/mcL *HI* (11/12/22 5:05 AM) Bilirubin Total [0.2-1.2 mg/dL] 0.8 mg/dL (11/15/22 11:35 AM) 0.5 mg/dL (11/14/22 4:00 AM) 0.9 mg/dL (11/13/22 5:20 AM) Hgb [12.0-18.0 g/dL] 10.3 g/dL *LOW* (11/14/22 4:00 AM) 10.2 g/dL *LOW* (11/13/22 5:20 AM) 11.1 g/dL *LOW* (11/12/22 5:05 AM) Alk Phos [38-130 IntlUnit/L] 58 IntlUnit /L (11/15/22 11:35 AM) 57 IntlUnit/L (11/14/22 4:00 AM) 68 IntlUnit/L (11/13/22 5:20 AM) UA Blood [Negative] Large *ABN* (11/15/22 7:50 PM) MPV [7.4-10.4 fL] 11.4 fL *HI* (11/14/22 4:00 AM) 11.5 fL *HI* (11/13/22 5:20 AM) 11.5 fL *HI* (11/12/22 5:05 AM) pCO2 Addison [42.0-53.0 mmHg] 50.0 mmHg (11/14/22 9:10 AM) 50.0 mmHg (11/13/22 3:40 PM) 48.0 mmHg (11/13/22 11:01 AM) CO2 Total Arterial [19.0-24. 0 mmol/L] 29.3 mmol/L *HI* (11/11/22 5:40 PM) 30.2 mmol/L *HI* (11/11/22 4:03 PM) UA Spec Grav 1.020 *NA* (11/15/22 7:50 PM) Hep A Ab IgM [Non Reactive] Non Reactive (11/11/22 12:35 PM) Hep Bs Ag [Non Reactive] Non Reactive (11/11/22 12:35 PM) Bilirubin Direct 0.2 *NA* (11/15/22 11:35 AM) 0.2 *NA* (11/14/22 4:00 AM) 0.3 *NA* (11/13/22 5:20 AM) Platelets [130-400 K/mcL] 220 K/mcL (11/14/22 4:00 AM) 201 K/mcL (11/13/22 5:20 AM) 204 K/mcL (11/12/22 5:05 AM) CO2 [22-32 mmol/L] 23 mmol/L (11/16/22 5:30 AM) 27 mmol/L (11/15/22 11:35 AM) 22 mmol/L (11/14/22 4:00 AM) Eos Absolute [0.0-0.2 K/mcL] 0.1 K/mcL (11/14/22 4:00 AM) 0.0 K/mcL (11/13/22 5:20 AM) 0.0 K/mcL (11/12/22 5:05 AM) Lactic Acid Lvl [0.5-2.2 mmol/L] 1.1 mmol/L (11/16/22 5:32 AM) 1.4 mmol/L (11/15/22 4:30 AM) 1.2 mmol/L (11/14/22 4:00 AM) UA Squam Epithelial [0-3] 0-3 (11/15/22 7:50 PM) TSH [0.45-5.33 mIntlUnit/mL] 0.87 mIntlU nit/mL (11/14/22 4:00 AM) Hep B Core Ab IgM [Non Reactive] Non Reactive (11/11/22 12:35 PM) Hep C Ab [Non Reactive] Non Reactive (11/11/22 12:35 PM) UA pH 5.00 *NA* (11/15/22 7:50 PM) pH Addison [7.32-7.42 pH unit(s)] 7.36 pH un it(s) (11/14/22 9:10 AM) 7.36 pH unit(s) (11/13/22 3:40 PM) 7.37 pH unit(s) (11/13/22 11:01 AM) eGFR Non-AA 39 *NA* (11/16/22 5:30 AM) 35 *NA* (11/15/22 11:35 AM) 26 *NA* (11/14/22 4:00 AM) eGFR AA 39 *NA* (11/16/22 5:30 AM) 35 *NA* (11/15/22 11:35 AM) 26 *NA* (11/14/22 4:00 AM) Base Excess Arterial [-2.0-3.0 mmol/L] 0.4 mmol/L (11/11/22 5:40 PM) 2.0 mmol/L (11/11/22 4:03 PM) Base Excess Venous 1.9 *NA* (11/14/22 9:10 AM) 1.9 *NA* (11/13/22 3:40 PM) 1.7 *NA* (11/13/22 11:01 AM) UA Appear [Clear] Cloudy *ABN* (11/15/22 7:50 PM) U Creatinine 211.0 mg/dL *NA* (11/11/22 9:03 PM) Chloride Level [98-111 mmol/L] 106 mmol/L (11/16/22 5:30 AM) 100 mmol/L (11/15/22 11:35 AM) 100 mmol/L (11/14/22 4:00 AM) Procalcitonin [0.00-0.08] 1.20 *HI* (11/11/22 12:35 PM) RDW-CV [11.5-14.5 %] 14.6 % *HI* (11/14/22 4:00 AM) 14.6 % *HI* (11/13/22 5:20 AM) 14.8 % *HI* (11/12/22 5:05 AM) Adenovirus RespP-BFire [Not Detected] Not Detected (11/11/22 12:28 PM) Bordetella parapertussis RespP-BFire [Not Detected] Not Detected (11/11/22 12:28 PM) Bordetella pertussis RespP-BFire [Not Detected] Not Detected (11/11/22 12:28 PM) Chlamydophila pneumoniae RespP-BFire [Not Detected] Not Detected (11/11/22 12:28 PM) Coronavirus 229E (Not COVID-19) RP-BFire [Not Detected] Not Detected (11/11/22 12:28 PM) Coronavirus HKU1 (Not COVID-19) RP-BFire [Not Detected] Not Detected (11/11/22 12:28 PM) Coronavirus NL63 (Not COVID-19) RP-BFire [Not Detected] Not Detected (11/11/22 12:28 PM) Coronavirus OC43 (Not COVID-19) RP-BFire [Not Detected] Not Detected (11/11/22 12:28 PM) Human Metapneumonovirus RespP-BFire [Not Detected] Not Detected (11/11/22 12:28 PM) Human Rhinovirus/Enterovirus RespP-BFir [Not Detected] Not Detected (11/11/22 12:28 PM) Influenza A RespP-BFire [Not Detected] Not Detected (11/11/22 12:28 PM) Influenza B RespP-BFire [Not Detected] Not Detected (11/11/22 12:28 PM) Mycomplasma pneumoniae RespP-BFire [Not Detected] Not Detected (11/11/22 12:28 PM) Parainfluenza Virus 1 RespP-BFire [Not Detected] Not Detected (11/11/22 12:28 PM) Parainfluenza Virus 2 RespP-BFire [Not Detected] Not Detected (11/11/22 12:28 PM) Parainfluenza Virus 3 RespP-BFire [Not Detected] Not Detected (11/11/22 12:28 PM) Parainfluenza Virus 4 RespP-BFire [Not Detected] Not Detected (11/11/22 12:28 PM) Respiratory Syncytial Virus RespP-BFire [Not Detected] Not Detected (11/11/22 12:28 PM) A/G Ratio 0.9 *NA* (11/15/22 11:35 AM) 0.9 *NA* (11/14/22 4:00 AM) 0.9 *NA* (11/13/22 5:20 AM) BUN/Creat Ratio [8.0-20.0] 38.6 *HI* (11/16/22 5:30 AM) 36.4 *HI* (11/15/22 11:35 AM) 31.4 *HI* (11/14/22 4:00 AM) Globulin 3.4 *NA* (11/15/22 11:35 AM) 3.1 *NA* (11/14/22 4:00 AM) 3.2 *NA* (11/13/22 5:20 AM) Hgb Art [11.7-16.1 g/dL] 11.2 g/dL *LOW* (11/11/22 5:40 PM) 11.3 g/dL *LOW* (11/11/22 4:03 PM) Imm Gran Absolute 0.55 *NA* (11/14/22 4:00 AM) 0.29 *NA* (11/13/22 5:20 AM) 0.14 *NA* (11/12/22 5:05 AM) Imm Gran Auto [0.0-0.5 %] 4.2 % *HI* (11/14/22 4:00 AM) 2.0 % *HI* (11/13/22 5:20 AM) 0.8 % *HI* (11/12/22 5:05 AM) MRSA Screen -GeneXpert [Negative] Negative (11/12/22 8:54 PM) UA Culture Ind?. [No] No (11/15/22 7:50 PM) Anisocyte 1+ (11/12/22 5:05 AM) Cytomegalovirus (CMV) Ab, Ig G LC [0.00-0.59 unit/mL] 8.20 unit/mL 4 *HI* (11/12/22 5:05 AM) Cytomegalovirus (CMV) Ab, Ig M LC [0.0-29.9 AU/mL] <30.0 AU/mL 5 *NA* (11/12/22 5:05 AM) MSSA Screen -GeneXpert [Negative] Negative (11/12/22 8:54 PM) Creatinine Level [0.44-1.00 mg/dL] 1.40 mg/dL *HI* (11/16/22 5:30 AM) 1.51 mg/dL *HI* (11/15/22 11:35 AM) 1.94 mg/dL *HI* (11/14/22 4:00 AM) HCO3 Art [21.0-28.0 mmol/L] 27.6 mmol/L (11/11/22 5:40 PM) 28.6 mmol/L *HI* (11/11/22 4:03 PM) SARS-CoV-2 (COVID-19) RP-BFire [Not Detected] Not Detected (11/11/22 12:28 PM) Plt Estimation Normal (11/13/22 5:20 AM) Normal (11/12/22 5:05 AM) Normal (11/11/22 12:28 PM) SARS-CoV or CoV-2 (COVID-19) Ag (Rena) [Negative] Negative (11/11/22 12:18 PM) U Magnesium 3 mg/dL *NA* (11/11/22 9:03 PM) U Sodium 15 mmol/L *NA* (11/11/22 9:03 PM) U Urea 395 mg/dL *NA* (11/11/22 9:03 PM) Employed in healthcare? Unknown *NA* (11/11/22 12:28 PM) Unknown *NA* (11/11/22 12:18 PM) Symptomatic as defined by CDC? Unknown *NA* (11/11/22 12:28 PM) Unknown *NA* (11/11/22 12:18 PM) Date of onset (Lab) Unknown *NA* (11/11/22 12:18 PM) Hospitalized due to COVID-19? Unknown *NA* (11/11/22 12:28 PM) Unknown *NA* (11/11/22 12:18 PM) In ICU? Unknown *NA* (11/11/22 12:28 PM) Unknown *NA* (11/11/22 12:18 PM) Group care resident? Unknown *NA* (11/11/22 12:28 PM) Unknown *NA* (11/11/22 12:18 PM) status? Unknown *NA* (11/11/22 12:28 PM) Unknown *NA* (11/11/22 12:18 PM) Anion Gap [3.0-12.0] 17.0 6 *HI* (11/16/22 5:30 AM) 11.0 (11/15/22 11:35 AM) 15.0 *HI* (11/14/22 4:00 AM) Eos, Auto [0.00-3.00 %] 0.50 % (11/14/22 4:00 AM) 0.00 % (11/13/22 5:20 AM) 0.00 % (11/12/22 5:05 AM) Streptococcus Pneumonia Antigen [Negative] Negative (11/11/22 9:03 PM) O2 Sat Art 97.8 *NA* (11/11/22 5:40 PM) 99.9 *NA* (11/11/22 4:03 PM) Mononucleosis Screen [Negative] Negative (11/11/22 12:35 PM) 1Result Comment: troponin result consistent with previous values 2Result Comment: troponin similar to previous value 3Result Comment: Called to and read back by marcelo cruz at [address] 4Result Comment: Negative <0.60 Equivocal 0.60 - 0.69 Positive >0.69 5Result Comment: Negative <30.0 Equivocal 30.0 - 34.9 Positive >34.9 A positive result is generally indicative of acute infection, reactivation or persistent IgM production. Performed At: [facility] [address] [place] [address] [id number] Anshul Galvan MD Ph:[phone] 6Result Comment: Electrolytes verified by repeat. Orders for Microbiology Reports Name Date Blood Culture 11/11/22 Blood Culture 11/11/22 Microbiology Reports TEST:Blood Culture STATUS:Auth (Verified) BODY SITE: SOURCE:Peripheral Blood COLLECTED DATE/TIME:11/11/22 2:10 PM FINAL REPORT No growth at 5 days. TEST:Blood Culture STATUS:Auth (Verified) BODY SITE: SOURCE:Peripheral Blood COLLECTED DATE/TIME:11/11/22 2:01 PM FINAL REPORT No growth at 5 days. Radiology Reports * Exam Date Time Procedure Performing Provider Status 11/11/22 8:[address] Abdomen and Pelvis w/o Contrast Eliel Sanders; Auth (Verified) Notes: (CT Abdomen and Pelvis w/o Contrast) Reason For Exam: elevated LFT's CT Abdomen and Pelvis w/o Contrast PROCEDURE INFORMATION: Exam: CT Abdomen And Pelvis Without Contrast Exam date and time: 11/11/2022 8:24 PM Age: 77 years old Clinical indication: Other: Elevated lfts; Additional info: Elevated lft's TECHNIQUE: Imaging protocol: Computed tomography of the abdomen and pelvis without contrast. Radiation optimization: All CT scans at this facility use at least one of these dose optimization techniques: automated exposure control; mA and/or kV adjustment per patient size (includes targeted exams where dose is matched to clinical indication); or iterative reconstruction. COMPARISON: CT ABD/PELVIS W CONTRAST 08/15/2022 1:24 PM FINDINGS: Tubes, catheters and devices: There are sternal wires consistent with previous sternotomy incision. Lungs: Posterior right lower lobe pneumonia with air bronchograms. Minimal atelectasis in the lingula. Mild airspace changes posterior aspect left lower lobe. Minimal vascular congestion in the lower lobes bilaterally. Heart: There is moderate cardiomegaly. Indwelling aortic valve indwelling mitral valve atelectasis infiltrate right middle lobe. Liver: There is a diffuse decrease in hepatic parenchymal density, consistent with fatty infiltration. Gallbladder and bile ducts: Large solitary gallbladder stone. Pancreas: Unremarkable. No ductal dilation. Spleen: Unremarkable. No splenomegaly. Adrenal glands: Normal. No mass. 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 Hypertrophic right kidney noted. Stomach and bowel: Moderate diverticulosis is present in the distal colon. Appendix: No evidence of appendicitis. Intraperitoneal space: Unremarkable. No free air. No significant fluid collection. Vasculature: The aorta demonstrates moderate atherosclerotic calcification. Lymph nodes: Unremarkable. No enlarged lymph nodes. Urinary bladder: Unremarkable as visualized. Reproductive: There has been a hysterectomy. Bones/joints: Ununited L1 transverse process bilaterally. There is mild diffuse osteopenia. The lumbar spine demonstrates mild degenerative changes at multiple levels. Soft tissues: There is a fat-containing umbilical hernia. IMPRESSION: 1. Fatty liver and large gallstone mid body of the gallbladder no biliary dilatation noted. Correlate with LFTs. 2. 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 A chronic changes stable. 3. Posterior right lower lobe pneumonia with air bronchograms minimal atelectasis in the lingula and posterior aspect left lower lobe. THIS DOCUMENT HAS BEEN ELECTRONICALLY SIGNED BY SHAWN GUY MD on 11/11/2022 09:03 PM Final Signed by: Shawn Guy MD Signed (Electronic Signature): 11/11/2022 9:03 pm * Exam Date Time Procedure Performing Provider Status 11/11/22 8:[address] Chest w/o Contrast Marilyn Eliel Chaitanya; Auth (Verified) Notes: (CT Chest w/o Contrast) Reason For Exam: [place] CT Chest w/o Contrast PROCEDURE INFORMATION: Exam: CT Chest Without Contrast; Diagnostic Exam date and time: 11/11/2022 8:24 PM Age: 77 years old Clinical indication: Other: Hypoxia; Additional info: [place] TECHNIQUE: Imaging protocol: Diagnostic computed tomography of the chest without contrast. Radiation optimization: All CT scans at this facility use at least one of these dose optimization techniques: automated exposure control; mA and/or kV adjustment per patient size (includes targeted exams where dose is matched to clinical indication); or iterative reconstruction. COMPARISON: CT ANGIO CHEST 08/15/2022 1:24 PM FINDINGS: Tubes, catheters and devices: There are sternal wires consistent with previous sternotomy incision. Lungs: Moderate centrilobular emphysematous changes are present. Multifocal airspace changes superolateral aspect right lower lobe superior aspect left lower lobe inferolateral aspect left upper lobe and right upper lobe. Minimal fluid in the right fissure with atelectasis in the right lower lobe and probable developing pneumonia. The 8 mm x 8 mm subsolid nodule left upper lobe. 6 x 6 mm nodule solid nodule left lower lobe. Pleural spaces: Air bronchograms right lower lobe with pneumonia and small right parapneumonic effusion. Pleural spaces: Unremarkable. No pneumothorax. No pleural effusion. Heart: Unremarkable. No cardiomegaly. No pericardial effusion. Lymph nodes: Unremarkable. No enlarged lymph nodes. Vasculature: The aorta demonstrates moderate atherosclerotic calcification. 3.8 x 3.9 cm ascending aorta. Mid aortic arch 3 cm. Adrenal glands: Incidental large solitary gallstone. There is diffuse bilateral nonspecific adrenal enlargement, most likely related to acute illness. Kidneys and ureters: . Atretic upper pole left kidney. Bones/joints: There is moderate diffuse osteopenia. The thoracic spine demonstrates mild degenerative changes at multiple levels. Soft tissues: Unremarkable. IMPRESSION: 1. Multifocal atypical pneumonia noted in the upper and lower lobes with areas of atelectasis right middle lobe and multifocal consolidative nearly consolidative pneumonia right lower lobe with small small right parapneumonic effusion. 2. 8 mm x 8 mm subsolid nodule left upper lobe. 6 x 6 mm subsolid nodule left lower lobe. Recommend CT Chest at 3-6 months to confirm persistence of the nodule. If unchanged and solid component remains < 6 mm, annual CT Chest should be performed for 5 years. (Reference: Sarika) 3. Small right parapneumonic effusion. 4. Large solitary gallstone present. COMMENTS: In the absence of a history or active diagnosis of lung cancer, it is recommended that this patient with emphysema be evaluated for enrollment in a low dose CT lung cancer screening program. REFERENCES: Sarika H, et al. Guidelines for Management of Incidental Pulmonary Nodules Detected on CT Images: From the Fleischner Society 2017. Radiology. 2017;284(1):228-243. THIS DOCUMENT HAS BEEN ELECTRONICALLY SIGNED BY SHAWN GUY MD on 11/11/2022 09:10 PM Final Signed by: Shawn Guy MD Signed (Electronic Signature): 11/11/2022 9:10 pm * Exam Date Time Procedure Performing Provider Status 11/11/22 1:09 PM XR Chest 1 View Aisha Richey; Auth ( Verified) Notes: (XR Chest 1 View) Reason For Exam: sob XR Chest 1 View EXAM DESCRIPTION: XR Chest 1 View 11/11/2022 INDICATION: SOB COMPARISON: 08/14/2022 IMPRESSION: Mild bilateral interstitial infiltrates which may reflect interstitial pulmonary edema or interstitial pneumonitis. No focal consolidation Mild stable cardiomegaly with previous median sternotomy and valve replacement. No significant pleural effusion or pneumothorax. JOB #: [id number] Final Signed by: Kishore Parra MD Signed (Electronic Signature): 11/11/2022 1:12 pm Vital Signs Most recent to oldest [Reference Range]: 1 2 3 Temperature Oral [35.8-37.3 Deg C] 37.0 Deg C (11/15/22 3:48 PM) 36.3 Deg C (11/15/22 12:46 PM) Temperature Oral (DegF) [96.4-99.1 Deg F] 98.6 Deg F (11/15/22 3:48 PM) Temperature Tympanic [36.6-37.9 Deg C] 36.5 Deg C *LOW* (11/11/22 5:42 PM) 36.8 Deg C (11/11/22 11:54 AM) Temperature Temporal Artery [36-38 Deg C] 36.6 Deg C (11/16/22 10:43 AM) 36 Deg C (11/16/22 7:42 AM) 36.3 Deg C (11/16/22 3:54 AM) Temperature Temporal Artery (DegF) [97.3-100 Deg F] 97.34 Deg F (11/15/22 11:47 AM) 97.52 Deg F (11/15/22 9:28 AM) 97.34 Deg F (11/14/22 11:33 PM) Peripheral Pulse Rate [60-100 bpm] 87 bpm (11/16/22 1:41 PM) 93 bpm (11/16/22 10:43 AM) 79 bpm (11/16/22 7:42 AM) Heart Rate Monitored [60-100 bpm] 80 bpm (11/15/22 12:46 PM) 80 bpm (11/15/22 7:30 AM) 92 bpm (11/14/22 12:00 PM) Respiratory Rate [12-24 br/min] 20 br/min (11/16/22 10:43 AM) 22 br/min (11/16/22 7:42 AM) 21 br/min (11/16/22 3:54 AM) Blood Pressure [90-140/60-90 mmHg] 160/68mmHg *HI* (11/16/22 1:41 PM) 174/99mmHg *HI* (11/16/22 10:43 AM) 171/82mmHg *HI* (11/16/22 7:42 AM) Mean Arterial Pressure, Cuff [65-140 mmHg] 102 mmHg (11/15/22 11:14 PM) 93 mmHg (11/15/22 7:15 PM) 89 mmHg (11/15/22 3:48 PM) Mean Arterial Pressure Cuff 96 mmHg (11/14/22 10:00 AM) 101 mmHg (11/14/22 8:00 AM) 105 mmHg (11/14/22 7:00 AM) Blood Pressure Location Right arm (11/14/22 11:33 PM) Right arm (11/14/22 1:46 PM) Left arm (11/14/22 1:44 PM) Blood Pressure Method Automatic (11/14/22 11:33 PM) Automatic (11/14/22 1:46 PM) Automatic (11/14/22 1:44 PM) Weight 106.3 kg (11/15/22 7:34 AM) 100.1 kg 1 (11/11/22 5:42 PM) Weight Dosing 96.00 kg (11/11/22 12:19 PM) Weight Estimated 96.00 kg (11/11/22 11:54 AM) Height/Length Dosing 170.000 cm (11/11/22 12:19 PM) Height/Length Estimated 170.000 cm (11/11/22 11:54 AM) 1Result Comment: weighed on bed with standard linens. Social History Social History Type Response Tobacco Never tobacco user T obacco Use:. 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 Katlyn Peoples, DO 08/12/22 Non Biological Knee L Device Identifier Serial Number Lot or Batch Number Manufacturing Date Expiration Date Distinct Identification Code MRI Safety Implantable Status Assigning Authority Unknown NA [id number] Unknown 08/07/24 Unknown Unknown Active Unknown Unknown N/A [id number] 2 Unknown 06/10/32 Unknown Unknown Active Unknown Unknown NA [id number] 1 Unknown 04/01/27 Unknown Unknown Active Unknown Unknown N/A [id number] 2 Unknown 12/07/31 Unknown Unknown Active Unknown Unknown N/A [id number] 2 Unknown 12/15/26 Unknown Unknown Active Unknown Hospital Discharge Instructions Patient Education 11/16/2022 09:51:22 Community-Acquired Pneumonia, Adult, [id number] Community-Acquired Pneumonia, Adult Pneumonia is an infection of the lungs. It causes irritation and swelling in the airways of the lungs. Mucus and fluid may also build up inside the airways. This may cause coughing and trouble breathing. One type of pneumonia can happen while you are in a hospital. A different type can happen when you are not in a hospital (community-acquired pneumonia). What are the causes? This condition is caused by germs (viruses, bacteria, or fungi). Some types of germs can spread from person to person. Pneumonia is not thought to spread from person to person. What increases the risk? You are more likely to develop this condition if: ??? You have a long-term (chronic) disease, such as: ??? Disease of the lungs. This may be chronic obstructive pulmonary disease (COPD) or asthma. ??? Heart failure. ??? Cystic fibrosis. ??? Diabetes. ??? Kidney disease. ??? Sickle cell disease. ??? HIV. ??? You have other health problems, such as: ??? Your body's defense system (immune system) is weak. ??? A condition that may cause you to breathe in fluids from your mouth and nose. ??? You had your spleen taken out. ??? You do not take good care of your teeth and mouth (poor dental hygiene). ??? You use or have used tobacco products. ??? You travel where the germs that cause this illness are common. ??? You are near certain animals or the places they live. ??? You are older than 65 years of age. What are the signs or symptoms? Symptoms of this condition include: ??? A cough. ??? A fever. ??? Sweating or chills. ??? Chest pain, often when you breathe deeply or cough. ??? Breathing problems, such as: ??? Fast breathing. ??? Trouble breathing. ??? Shortness of breath. ??? Feeling tired (fatigued). ??? Muscle aches. How is this treated? Treatment for this condition depends on many things, such as: ??? The cause of your illness. ??? Your medicines. ??? Your other health problems. Most adults can be treated at home. Sometimes, treatment must happen in a hospital. ??? Treatment may include medicines to kill germs. ??? Medicines may depend on which germ caused your illness. Very bad pneumonia is rare. If you get it, you may: ??? Have a machine to help you breathe. ??? Have fluid taken away from around your lungs. Follow these instructions at home: Medicines ??? Take [id number]-yzmqepn and prescription medicines only as told by your doctor. ??? Take cough medicine only if you are losing sleep. Cough medicine can keep your body from takingmucus away from your lungs. ??? If you were prescribed an antibiotic medicine, take it as told by your doctor. Do not stop taking the antibiotic even if you start to feel better. Lifestyle ??? Do not drink alcohol. ??? Do not use any products that contain nicotine or tobacco, such as cigarettes, e-cigarettes, andchewing tobacco. If you need help quitting, ask your doctor. ??? Eat a healthy diet. This includes a lot of vegetables, fruits, whole grains, low-fat dairy products, and low-fat (lean) protein. General instructions ??? Rest a lot. Sleep for at least 8 hours each night. ??? Sleep with your head and neck raised. Put a few pillows under your head or sleep in a recliningchair. ??? Return to your normal activities as told by your doctor. Ask your doctor what activities are safe for you. ??? Drink enough fluid to keep your pee (urine) pale yellow. ??? If your throat is sore, rinse your mouth often with salt water. To make salt water, dissolve ?1 tsp (3???6 g) of salt in 1 cup (237 mL) of warm water. ??? Keep all follow-up visits as told by your doctor. This is important. How is this prevented? You can lower your risk of pneumonia by: ??? Getting the pneumonia shot (vaccine). These shots have different types and schedules. Ask your doctor what works best for you. Think about getting this shot if: ??? You are older than 65 years of age. ??? You are 19???65 years of age and: ??? You are being treated for cancer. ??? You have long-term lung disease. ??? You have other problems that affect your body's defense system. Ask your doctor if you have oneof these. ??? Getting your flu shot every year. Ask your doctor which type of shot is best for you. ??? Going to the dentist as often as told. ??? Washing your hands often with soap and water for at least 20 seconds. If you cannot use soap and water, use hand crisis clinician. Contact a doctor if: ??? You have a fever. ??? You lose sleep because your cough medicine does not help. Get help right away if: ??? You are short of breath and this gets worse. ??? You have more chest pain. ??? Your sickness gets worse. This is very serious if: ??? You are an older adult. ??? Your body's defense system is weak. ??? You cough up blood. These symptoms may be an emergency. Do not wait to see if the symptoms will go away. Get medical help right away. Call your local emergency services (911 in the [place] Do not drive yourself to the hospital. Summary ??? Pneumonia is an infection of the lungs. ??? Community-acquired pneumonia affects people who have not been in the hospital. Certain germs can cause this infection. ??? This condition may be treated with medicines that kill germs. ??? For very bad pneumonia, you may need a hospital stay and treatment to help with breathing. This information is not intended to replace advice given to you by your health care provider. Make sure you discuss any questions you have with your health care provider. Document Revised: 08/07/2020 Document Reviewed: 08/07/2020 [facility] Patient Education ?? 2021 [employer]. 11/16/2022 09:51:13 Asthma, Adult Asthma, Adult Asthma is a long-term (chronic) condition that causes recurrent episodes in which the airways become tight and narrow. The airways are the passages that lead from the nose and mouth down into the lungs. Asthma episodes, also called asthma attacks, can cause coughing, wheezing, shortness of breath, and chest pain. The airways can also fill with mucus. During an attack, it can be difficult to breathe. Asthma attacks can range from minor to life threatening. Asthma cannot be cured, but medicines and lifestyle changes can help control it and treat acute attacks. What are the causes? This condition is believed to be caused by inherited (genetic) and environmental factors, but its exact cause is not known. There are many things that can bring on an asthma attack or make asthma symptoms worse (triggers). Asthma triggers are different for each person. Common triggers include: ??? Mold. ??? Dust. ??? Cigarette smoke. ??? Cockroaches. ??? Things that can cause allergy symptoms (allergens), such as animal dander or pollen from trees or grass. ??? Air pollutants such as household manager commercial, wood smoke, smog, or chemical odors. ??? Cold air, weather changes, and winds (which increase molds and pollen in the air). ??? Strong emotional expressions such as crying or laughing hard. ??? Stress. ??? Certain medicines (such as aspirin) or types of medicines (such as beta-blockers). ??? Sulfites in foods and drinks. Foods and drinks that may contain sulfites include dried fruit, potato chips, and sparkling grape juice. ??? Infections or inflammatory conditions such as the flu, a cold, or inflammation of the nasal membranes (rhinitis). ??? Gastroesophageal reflux disease (GERD). ??? Exercise or strenuous activity. What are the signs or symptoms? Symptoms of this condition may occur right after asthma is triggered or many hours later. Symptoms include: ??? Wheezing. This can sound like whistling when you breathe. ??? Excessive nighttime or [facility] coughing. ??? Frequent or severe coughing with a common cold. ??? Chest tightness. ??? Shortness of breath. ??? Tiredness (fatigue) with minimal activity. How is this diagnosed? This condition is diagnosed based on: ??? Your medical history. ??? A physical exam. ??? Tests, which may include: ??? Lung function studies and pulmonary studies (spirometry). These tests can evaluate the flow of air in your lungs. ??? Allergy tests. ??? Imaging tests, such as X-rays. How is this treated? There is no cure for this condition, but treatment can help control your symptoms. Treatment for asthma usually involves: ??? Identifying and avoiding your asthma triggers. ??? Using medicines to control your symptoms. Generally, two types of medicines are used to treat asthma: ??? Controller medicines. These help prevent asthma symptoms from occurring. They are usually takenevery day. ??? Fast-acting reliever or rescue medicines. These quickly relieve asthma symptoms by widening thenarrow and tight airways. They are used as needed and provide short-term relief. ??? Using supplemental oxygen. This may be needed during a severe episode. ??? Using other medicines, such as: ??? Allergy medicines, such as antihistamines, if your asthma attacks are triggered by allergens. ??? Immune medicines (immunomodulators). These are medicines that help control the immune system. ??? Creating an asthma action plan. An asthma action plan is a written plan for managing and treating your asthma attacks. This plan includes: ??? A list of your asthma triggers and how to avoid them. ??? Information about when medicines should be taken and when their dosage should be changed. ??? Instructions about using a device called a peak flow meter. A peak flow meter measures how wellthe lungs are working and the severity of your asthma. It helps you monitor your condition. Follow these instructions at home: Controlling your home environment Control your home environment in the following ways to help avoid triggers and prevent asthma attacks: ??? Change your heating and air conditioning filter regularly. ??? Limit your use of fireplaces and wood stoves. ??? Get rid of pests (such as roaches and mice) and their droppings. ??? Throw away plants if you see mold on them. ??? Clean floors and dust surfaces regularly. Use unscented cleaning products. ??? Try to have someone else vacuum for you regularly. Stay out of rooms while they are being vacuumed and for a short while afterward. If you vacuum, use a dust mask from a hardware store, a double-layered or microfilter vacuum assembly cleaner bag, or a vacuum assembly cleaner with a HEPA filter. ??? Replace carpet with wood, tile, or vinyl geri. Carpet can trap dander and dust. ??? Use allergy-proof pillows, mattress covers, and box spring covers. ??? Keep your bedroom a trigger-free room. ??? Avoid pets and keep windows closed when allergens are in the air. ??? Wash beddings every week in hot water and dry them in a dryer. ??? Use blankets that are made of polyester or cotton. ??? Clean bathrooms and jennifer with bleach. If possible, have someone repaint the mckeon in these rooms with mold-resistant paint. Stay out of the rooms that are being cleaned and painted. ??? Wash your hands often with soap and water. If soap and water are not available, use hand crisis clinician. ??? Do not allow anyone to smoke in your home. General instructions ??? Take ucca-nyn-xiexugo and prescription medicines only as told by your health care provider. ??? Speak with your health care provider if you have questions about how or when to take the medicines. ??? Make note if you are requiring more frequent dosages. ??? Do not use any products that contain nicotine or tobacco, such as cigarettes and e-cigarettes. If you need help quitting, ask your health care provider. Also, avoid being exposed to secondhand smoke. ??? Use a peak flow meter as told by your health care provider. Record and keep track of the readings. ??? Understand and use the asthma action plan to help minimize, or stop an asthma attack, without needing to seek medical care. ??? Make sure you stay up to date on your yearly vaccinations as told by your health care provider.This may include vaccines for the flu and pneumonia. ??? Avoid outdoor activities when allergen counts are high and when air quality is low. ??? Wear a ski mask that covers your nose and mouth during outdoor winter activities. Exercise indoors on cold days if you can. ??? Warm up before exercising, and take time for a cool-down period after exercise. ??? Keep all follow-up visits as told by your health care provider. This is important. Where to find more information ??? For information about asthma, turn to the Centers for Disease Control and Prevention at www.cdc.gov/asthma/faqs ??? For air quality information, turn to AirNow at airnow.gov Contact a health care provider if: ??? You have wheezing, shortness of breath, or a cough even while you are taking medicine to prevent attacks. ??? The mucus you cough up (sputum) is thicker than usual. ??? Your sputum changes from clear or white to yellow, green, wright, or bloody. ??? Your medicines are causing side effects, such as a rash, itching, swelling, or trouble breathing. ??? You need to use a reliever medicine more than 2???3 times a week. ??? Your peak flow reading is still at 50???79% of your personal best after following your action plan for 1 hour. ??? You have a fever. Get help right away if: ??? You are getting worse and do not respond to treatment during an asthma attack. ??? You are short of breath when at rest or when doing very little physical activity. ??? You have difficulty eating, drinking, or talking. ??? You have chest pain or tightness. ??? You develop a fast heartbeat or palpitations. ??? You have a bluish color to your lips or fingernails. ??? You are light-headed or dizzy, or you faint. ??? Your peak flow reading is less than 50% of your personal best. ??? You feel too tired to breathe normally. Summary ??? Asthma is a long-term (chronic) condition that causes recurrent episodes in which the airways become tight and narrow. These episodes can cause coughing, wheezing, shortness of breath, and chest pain. ??? Asthma cannot be cured, but medicines and lifestyle changes can help control it and treat acuteattacks. ??? Make sure you understand how to avoid triggers and how and when to use your medicines. ??? Asthma attacks can range from minor to life threatening. Get help right away if you have an asthma attack and do not respond to treatment with your usual rescue medicines. This information is not intended to replace advice given to you by your health care provider. Make sure you discuss any questions you have with your health care provider. Document Revised: 07/26/2021 Document Reviewed: 02/27/2021 [employer] Patient Education ?? 2021 [facility] 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 The following includes patient education materials and information regarding your injury/illness. After you leave the hospital, you may get your health information including your test results, physician notes and discharge information by accessing your Patient Portal. Your Next Steps Follow Up Appointments Follow Up with??Mary Kate Robin When:??Within 1 to 2 weeks Where: [address] [facility] [address] [place] [address]- Business (1) Follow Up with??Stalney Miner When:??Within 1 month Where: [address] [place] [phone] Business (1) Follow Up with??James Owen When:??Within 1 to 2 weeks Where: [address] [place] [address]- [facility] (1) The Following Equipment Has Been Ordered for You Home Equipment - Walker Medications What How Much When Instructions Next Dose New amoxicillin-clavulanate (!- Augmentin 875 mg-125 mg oral tablet) 1 tab Oral (given by mouth) Every 12 hours Duration: 2 Days Changed alendronate (alendronate 70 mg oral tablet) 1 tab Oral (given by mouth) Every week typically takes on Thursday ?? Changed levothyroxine (levothyroxine 137 mcg (0.137 mg) oral tablet) 1 tab Oral (given by mouth) Every morning Unchanged aspirin (Aspirin Enteric Coated) 325 Milligrams Oral (given by mouth) 2 times a day Unchanged atorvastatin (atorvastatin 10 mg oral tablet) 1 tab Oral (given by mouth) Every evening Duration: 90 Days Unchanged calcium-vitamin D (calcium (as carbonate)-vitamin D 600 mg-200 intl units oral tablet) 1 tab Oral (given by mouth) Every day Unchanged citalopram (citalopram 20 mg oral tablet) 1 tab Oral (given by mouth) Every morning Unchanged docusate (docusate sodium 100 mg oral capsule) 1 Capsules Oral (given by mouth) 2 times a day as needed for as needed for constipation Unchanged furosemide (furosemide 40 mg oral tablet) 1 tab Oral (given by mouth) Every morning Duration: 90 Days Unchanged gabapentin (gabapentin 100 mg oral capsule) 1 Capsules Oral (given by mouth) 2 times a day Duration: 90 Days Unchanged ipratropium-albuterol (ipratropium-albuterol 0.5 mg-2.5 mg/ 3 mL inhalation solution) 3 Milliliters Nebulized inhalation (inhale using nebulizer) Every 4 hours as needed for shortness of breath Unchanged lactobacillus acidophilus (Acidophilus Probiotic Blend) 1 Capsules Oral (given by mouth) Every day Unchanged lansoprazole (lansoprazole 30 mg oral delayed release capsule) 1 Capsules Oral (given by mouth) Every morning Unchanged losartan (losartan 100 mg oral tablet) 1 tab Oral (given by mouth) Every day Duration: 90 Days Unchanged metFORMIN (metFORMIN 500 mg oral tablet) 1 tab Oral (given by mouth) Every evening Duration: 90 Days Unchanged metoprolol (metoprolol tartrate 25 mg oral tablet) 1 tab Oral (given by mouth) 2 times a day Duration: 90 Days Unchanged multivitamin (multivitamin adult, oral tablet) 1 tab Oral (given by mouth) Every day Unchanged senna (Senna Lax 8.6 mg oral tablet) 2 tab Oral (given by mouth) Every night at bedtime as needed for as needed for constipation Unchanged ubiquinone (Coenzyme Q10 100 mg oral capsule) 1 Capsules Oral (given by mouth) Every day Your Summary Your Care Team Admitting Physician - Nii Moon MD Attending Physician - Nii Moon MD Primary Care Physician - Belgica Farr MD Your Diagnosis Hypercapnic respiratory failure Asthma Thrombocytopenia Diabetes mellitus type 2 Cardiomyopathy, dilated Acute kidney injury Infection Elevated liver enzymes SVT (supraventricular tachycardia) Hoarseness Problems Ongoing - Any problem that you [...] GERD - Gastro-esophageal reflux disease Tests Performed/Pending .Morphology (LTTL) Automated Diff Blood Gas Arterial Blood Gas Venous BMP BMP C diff (GeneXpert)?-- Results Pending -- C-Reactive Protein C-Reactive Protein CBC w/ Diff CMP CMV Abs IgG/IgM LC Creatinine Urine Glucose POCT Hepatic Function Panel Hepatitis A Antibody IgM Hepatitis B Core Antibody IgM Hepatitis B Surface Antigen Hepatitis C Antibody Lactic Acid Legionella Antigen Urine Magnesium Level Magnesium Level Urine Mononucleosis Screen MRSA/MSSA Nasal (GeneXpert) pH Venous Phosphorus Level Procalcitonin PT/ INR PTT Respiratory Panel 2.1 ([employer]) SARS-CoV-2 (Covid-19) AG (Rena) POCT Sodium Level Urine Sputum Culture?-- Results Pending -- Streptococcus Pneumoniae Antigen Urine Troponin-I TSH w/ Rflx to Free T4 Urea Nitrogen Urine Urinalysis Microscopic Urinalysis with Micro if Indicated and Culture if Indicated CT Abdomen and Pelvis w/o Contrast CT Chest w/o Contrast XR Chest 1 View You will be contacted within 72 hours with your results. Discharge Vitals Temperature??(Temporal Artery) 97.9 ??F (36.6 ??C) Heart Rate??(Peripheral) 87 Respiratory Rate?? 20 Blood Pressure?? 160/68?? Allergies Flomax??(Dizziness) sulfa drugs??(Rash, Hallucinations) Education Materials Community-Acquired Pneumonia, Adult Pneumonia is an infection of the lungs. It causes irritation and swelling in the airways of the lungs. Mucus and fluid may also build up inside the airways. This may cause coughing and trouble breathing. One type of pneumonia can happen while you are in a hospital. A different type can happen when you are not in a hospital (community-acquired pneumonia). What are the causes? This condition is caused by germs (viruses, bacteria, or fungi). Some types of germs can spread from person to person. Pneumonia is not thought to spread from person to person. What increases the risk? You are more likely to develop this condition if: ? You have a long-term (chronic) disease, such as: ? Disease of the lungs. This may be chronic obstructive pulmonary disease (COPD) or asthma. ? Heart failure. ? Cystic fibrosis. ? Diabetes. ? Kidney disease. ? Sickle cell disease. ? HIV. ? You have other health problems, such as: ? Your body's defense system (immune system) is weak. ? A condition that may cause you to breathe in fluids from your mouth and nose. ? You had your spleen taken out. ? You do not take good care of your teeth and mouth (poor dental hygiene). ? You use or have used tobacco products. ? You travel where the germs that cause this illness are common. ? You are near certain animals or the places they live. ? You are older than 65 years of age. What are the signs or symptoms? Symptoms of this condition include: ? A cough. ? A fever. ? Sweating or chills. ? Chest pain, often when you breathe deeply or cough. ? Breathing problems, such as: ? Fast breathing. ? Trouble breathing. ? Shortness of breath. ? Feeling tired (fatigued). ? Muscle aches. How is this treated? Treatment for this condition depends on many things, such as: ? The cause of your illness. ? Your medicines. ? Your other health problems. Most adults can be treated at home. Sometimes, treatment must happen in a hospital. ? Treatment may include medicines to kill germs. ? Medicines may depend on which germ caused your illness. Very bad pneumonia is rare. If you get it, you may: ? Have a machine to help you breathe. ? Have fluid taken away from around your lungs. Follow these instructions at home: Medicines ? Take ljiw-qqi-srnimbv and prescription medicines only as told by your doctor. ? Take cough medicine only if you are losing sleep. Cough medicine can keep your body from taking mucus away from your lungs. ? If you were prescribed an antibiotic medicine, take it as told by your doctor. Do not stop taking the antibiotic even if you start to feel better. Lifestyle ? Do not drink alcohol. ? Do not use any products that contain nicotine or tobacco, such as cigarettes, e- cigarettes, and chewing tobacco. If you need help quitting, ask your doctor. ? Eat a healthy diet. This includes a lot of vegetables, fruits, whole grains, low-fat dairy products, and low-fat (lean) protein. General instructions ? Rest a lot. Sleep for at least 8 hours each night. ? Sleep with your head and neck raised. Put a few pillows under your head or sleep in a reclining chair. ? Return to your normal activities as told by your doctor. Ask your doctor what activities are safe for you. ? Drink enough fluid to keep your pee (urine) pale yellow. ? If your throat is sore, rinse your mouth often with salt water. To make salt water, dissolve ?1tsp (3???6 g) of salt in 1 cup (237 mL) of warm water. ? Keep all follow-up visits as told by your doctor. This is important. How is this prevented? You can lower your risk of pneumonia by: ? Getting the pneumonia shot (vaccine). These shots have different types and schedules. Ask your doctor what works best for you. Think about getting this shot if: ? You are older than 65 years of age. ? You are 19???65 years of age and: ? You are being treated for cancer. ? You have long-term lung disease. ? You have other problems that affect your body's defense system. Ask your doctor if you have one of these. ? Getting your flu shot every year. Ask your doctor which type of shot is best for you. ? Going to the dentist as often as told. ? Washing your hands often with soap and water for at least 20 seconds. If you cannot use soap and water, use hand crisis clinician. Contact a doctor if: ? You have a fever. ? You lose sleep because your cough medicine does not help. Get help right away if: ? You are short of breath and this gets worse. ? You have more chest pain. ? Your sickness gets worse. This is very serious if: ? You are an older adult. ? Your body's defense system is weak. ? You cough up blood. These symptoms may be an emergency. Do not wait to see if the symptoms will go away. Get medical help right away. Call your local emergency services (911 in the [place] Do not drive yourself to the hospital. Summary ? Pneumonia is an infection of the lungs. ? Community-acquired pneumonia affects people who have not been in the hospital. Certain germs can cause this infection. ? This condition may be treated with medicines that kill germs. ? For very bad pneumonia, you may need a hospital stay and treatment to help with breathing. This information is not intended to replace advice given to you by your health care provider. Make sure you discuss any questions you have with your health care provider. Document Revised: 08/07/2020 Document Reviewed: 08/07/2020 [facility] Patient Education ?? 2021 [employer]. Asthma, Adult Asthma is a long-term (chronic) condition that causes recurrent episodes in which the airways become tight and narrow. The airways are the passages that lead from the nose and mouth down into the lungs. Asthma episodes, also called asthma attacks, can cause coughing, wheezing, shortness of breath, and chest pain. The airways can also fill with mucus. During an attack, it can be difficult to breathe. Asthma attacks can range from minor to life threatening. Asthma cannot be cured, but medicines and lifestyle changes can help control it and treat acute attacks. What are the causes? This condition is believed to be caused by inherited (genetic) and environmental factors, but its exact cause is not known. There are many things that can bring on an asthma attack or make asthma symptoms worse (triggers). Asthma triggers are different for each person. Common triggers include: ? Mold. ? Dust. ? Cigarette smoke. ? Cockroaches. ? Things that can cause allergy symptoms (allergens), such as animal dander or pollen from trees or grass. ? Air pollutants such as household manager commercial, wood smoke, smog, or chemical odors. ? Cold air, weather changes, and winds (which increase molds and pollen in the air). ? Strong emotional expressions such as crying or laughing hard. ? Stress. ? Certain medicines (such as aspirin) or types of medicines (such as beta-blockers). ? Sulfites in foods and drinks. Foods and drinks that may contain sulfites include dried fruit, potato chips, and sparkling grape juice. ? Infections or inflammatory conditions such as the flu, a cold, or inflammation of the nasal membranes (rhinitis). ? Gastroesophageal reflux disease (GERD). ? Exercise or strenuous activity. What are the signs or symptoms? Symptoms of this condition may occur right after asthma is triggered or many hours later. Symptoms include: ? Wheezing. This can sound like whistling when you breathe. ? Excessive nighttime or rn plasma center coughing. ? Frequent or severe coughing with a common cold. ? Chest tightness. ? Shortness of breath. ? Tiredness (fatigue) with minimal activity. How is this diagnosed? This condition is diagnosed based on: ? Your medical history. ? A physical exam. ? Tests, which may include: ? Lung function studies and pulmonary studies (spirometry). These tests can evaluate the flow of air in your lungs. ? Allergy tests. ? Imaging tests, such as X-rays. How is this treated? There is no cure for this condition, but treatment can help control your symptoms. Treatment for asthma usually involves: ? Identifying and avoiding your asthma triggers. ? Using medicines to control your symptoms. Generally, two types of medicines are used to treat asthma: ? Controller medicines. These help prevent asthma symptoms from occurring. They are usually taken every day. ? Fast-acting reliever or rescue medicines. These quickly relieve asthma symptoms by widening the narrow and tight airways. They are used as needed and provide short-term relief. ? Using supplemental oxygen. This may be needed during a severe episode. ? Using other medicines, such as: ? Allergy medicines, such as antihistamines, if your asthma attacks are triggered by allergens. ? Immune medicines (immunomodulators). These are medicines that help control the immune system. ? Creating an asthma action plan. An asthma action plan is a written plan for managing and treating your asthma attacks. This plan includes: ? A list of your asthma triggers and how to avoid them. ? Information about when medicines should be taken and when their dosage should be changed. ? Instructions about using a device called a peak flow meter. A peak flow meter measures how well thelungs are working and the severity of your asthma. It helps you monitor your condition. Follow these instructions at home: Controlling your home environment Control your home environment in the following ways to help avoid triggers and prevent asthma attacks: ? Change your heating and air conditioning filter regularly. ? Limit your use of fireplaces and wood stoves. ? Get rid of pests (such as roaches and mice) and their droppings. ? Throw away plants if you see mold on them. ? Clean floors and dust surfaces regularly. Use unscented cleaning products. ? Try to have someone else vacuum for you regularly. Stay out of rooms while they are being vacuumed and for a short while afterward. If you vacuum, use a dust mask from a hardware store, a double-layered or microfilter vacuum assembly cleaner bag, or a vacuum assembly cleaner with a HEPA filter. ? Replace carpet with wood, tile, or vinyl geri. Carpet can trap dander and dust. ? Use allergy-proof pillows, mattress covers, and box spring covers. ? Keep your bedroom a trigger-free room. ? Avoid pets and keep windows closed when allergens are in the air. ? Wash beddings every week in hot water and dry them in a dryer. ? Use blankets that are made of polyester or cotton. ? Clean bathrooms and jennifer with bleach. If possible, have someone repaint the mckeon in these rooms with mold-resistant paint. Stay out of the rooms that are being cleaned and painted. ? Wash your hands often with soap and water. If soap and water are not available, use hand crisis clinician. ? Do not allow anyone to smoke in your home. General instructions ? Take bbfe-kpr-fgigsqd and prescription medicines only as told by your health care provider. ? Speak with your health care provider if you have questions about how or when to take the medicines. ? Make note if you are requiring more frequent dosages. ? Do not use any products that contain nicotine or tobacco, such as cigarettes and e-cigarettes. If you need help quitting, ask your health care provider. Also, avoid being exposed to secondhand smoke. ? Use a peak flow meter as told by your health care provider. Record and keep track of the readings. ? Understand and use the asthma action plan to help minimize, or stop an asthma attack, without needing to seek medical care. ? Make sure you stay up to date on your yearly vaccinations as told by your health care provider. This may include vaccines for the flu and pneumonia. ? Avoid outdoor activities when allergen counts are high and when air quality is low. ? Wear a ski mask that covers your nose and mouth during outdoor winter activities. Exercise indoors on cold days if you can. ? Warm up before exercising, and take time for a cool-down period after exercise. ? Keep all follow-up visits as told by your health care provider. This is important. Where to find more information ? For information about asthma, turn to the Centers for Disease Control and Prevention at www.cdc.gov/asthma/faqs ? For air quality information, turn to [employer] at airSlimTrader.gov Contact a health care provider if: ? You have wheezing, shortness of breath, or a cough even while you are taking medicine to prevent attacks. ? The mucus you cough up (sputum) is thicker than usual. ? Your sputum changes from clear or white to yellow, green, wright, or bloody. ? Your medicines are causing side effects, such as a rash, itching, swelling, or trouble breathing. ? You need to use a reliever medicine more than 2???3 times a week. ? Your peak flow reading is still at 50???79% of your personal best after following your action plan for 1 hour. ? You have a fever. Get help right away if: ? You are getting worse and do not respond to treatment during an asthma attack. ? You are short of breath when at rest or when doing very little physical activity. ? You have difficulty eating, drinking, or talking. ? You have chest pain or tightness. ? You develop a fast heartbeat or palpitations. ? You have a bluish color to your lips or fingernails. ? You are light-headed or dizzy, or you faint. ? Your peak flow reading is less than 50% of your personal best. ? You feel too tired to breathe normally. Summary ? Asthma is a long-term (chronic) condition that causes recurrent episodes in which the airways become tight and narrow. These episodes can cause coughing, wheezing, shortness of breath, and chest pain. ? Asthma cannot be cured, but medicines and lifestyle changes can help control it and treat acute attacks. ? Make sure you understand how to avoid triggers and how and when to use your medicines. ? Asthma attacks can range from minor to life threatening. Get help right away if you have an asthma attack and do not respond to treatment with your usual rescue medicines. This information is not intended to replace advice given to you by your health care provider. Make sure you discuss any questions you have with your health care provider. Document Revised: 07/26/2021 Document Reviewed: 02/27/2021 [facility] Patient Education ?? 2021 [employer]. Medication Information lactobacillus acidophilus?? (LAK toe ba MARY ELLEN us rola OFF il us) ?? Acidophilus, Bacid (LAC), Florajen, Shanell-Q, Lactinex, Nathalie-Bid, RisaQuad, Superdophilus?What is the most important information I should know about lactobacillus acidophilus?Follow all directions on the product label and package. Tell each of your healthcare providers about all your medical conditions, allergies, and all medicines you use. ?What is lactobacillus acidophilus?Lactobacillus acidophilus is a bacteria that exists naturally in the body, primarily in the intestines and the vagina. ??Lactobacillus acidophilus has been used as a probiotic, or 'friendly bacteria.' ?Lactobacillus acidophilus has been used in alternative medicine as a??likely effective??aid in treating diarrhea in children with rotavirus. ?Lactobacillus acidophilus has been used in alternative medicine as a??possibly effective??aid (in children or adults) in preventing diarrhea caused by antibiotics, travel, chemotherapy, or hospitalization. ??Lactobacillus acidophilus is also possibly effective in treating irritable bowel syndrome, bacterial vaginal infection, colic in babies, lung infections in children, skin problems in children who are allergic to milk, and other conditions. ?Lactobacillus acidophilus has also been used to treat lactose intolerance, Crohn's disease, overgrowth of bacteria in the intestines, or vaginal yeast infections caused by antibiotics. ??However,research has shown that lactobacillus acidophilus??may not be effective??in treating these conditions. ?Other uses??not proven with research??have included treating indigestion, urinary tract infections, intestinal problems in premature babies, high cholesterol, lyme disease, cold sores, acne, cancer, the common cold, and other conditions. ?It is not certain whether lactobacillus acidophilus is effective in treating any medical condition. ??Medicinal use of this product has not been approved by the FDA. ??Lactobacillus acidophilus should not be used in place of medication prescribed for you by your doctor. ?Lactobacillus acidophilus is often sold as an herbal supplement. ??There are no regulated manufacturing standards in place for many herbal compounds and some marketed supplements have been found to be contaminated with toxic metals or other drugs. Herbal/health supplements should be purchased from a reliable source to minimize the risk of contamination. ?Lactobacillus acidophilus may also be used for other purposes not listed in this product guide. ?What should I discuss with my healthcare provider before taking lactobacillus acidophilus?Ask a doctor, pharmacist, or other healthcare provider if it is safe for you to use this product if you have: ?short bowel syndrome; or ?a weak immune system (caused by disease or by using certain medicine). ?Ask a doctor before using this product if you are or breast-feeding.?Do not give any herbal/health supplement to a child without medical advice. ?How should I take lactobacillus acidophilus?When considering the use of herbal supplements, seek the advice of your doctor. ??You may also consider consulting a practitioner who is trained in the use of herbal/health supplements. ?If you choose to use lactobacillus acidophilus, use it as directed on the package or as directed by your doctor, pharmacist, or other healthcare provider. ??Do not use more of this product than is recommended on the label. ?Lactobacillus acidophilus is available in capsule and tablet form, or as a vaginal suppository.??Powder or liquid forms may also be available. ??Some dairy products, especially yogurt, also contain lactobacillus acidophilus. ?The??chewable tablet??must be chewed before you swallow it. ?Do not use different forms of lactobacillus acidophilus at the same time without medical advice. Using different formulations together increases the risk of an overdose. ?Call your doctor if the condition you are treating with lactobacillus acidophilus does not improve, or if it gets worse while using this product. ?Store lactobacillus acidophilus in a sealed container as directed on the product label, away from moisture, heat, and light. ?What happens if I miss a dose?Skip the missed dose if it is almost time for your next scheduled dose. ??Do not??use extra lactobacillus acidophilus to make up the missed dose. ?What happens if I overdose?Seek emergency medical attention or call the Poison Help line at . ?What should I avoid while taking lactobacillus acidophilus?Avoid taking lactobacillus acidophilus within 2 hours after you take any type of antibiotic medicine. ?What are the possible side effects of lactobacillus acidophilus?Get emergency medical help if you have??signs of an allergic reaction:?hives; difficulty breathing; swelling of your face, lips, tongue, or throat. ?Although not all side effects are known, lactobacillus acidophilus is thought to be likely safewhen taken for a short period of time. ?Common side effects may include: ?bloating; or ?gas. ?This is not a complete list of side effects and others may occur. Call your doctor for medical advice about side effects. You may report side effects to FDA at 9-339-YVL-7182. ?What other drugs will affect lactobacillus acidophilus?Do not take lactobacillus acidophilus without medical advice if you are using any medications that can weaken your immune system, such as:?medicine to prevent organ transplant rejection; or ?steroid medicine (prednisone, dexamethasone, methylprednisolone, and others). ?This list is not complete. ??Other drugs may interact with lactobacillus acidophilus, includingprescription and zgsi-ite-okaxbpl medicines, vitamins, and herbal products. ??Not all possible interactions are listed in this product guide. ?Where can I get more information?Consult with a licensed healthcare professional before using any herbal/health supplement. ??Whether you are treated by a medical doctor or a practitioner trained in the use of natural medicines/supplements,??make sure all your healthcare providers know about all of your medical conditions and t reatments. ?Remember, keep this and all other medicines out of the reach of children, never share your medicines with others, and use this medication only for the indication prescribed. ?Every effort has been made to ensure that the information provided by [employer] ('[employer]') is accurate, up-to-date, and complete, but no guarantee is made to that effect. Drug information contained herein may be time sensitive. [employer] information has been compiled for use by healthcare practitioners and consumers in the [place] and therefore [employer] does not warrant that uses outside of the [place] are appropriate, unless specifically indicated otherwise. [employer] drug information does not endorse drugs, diagnose patients or recommend therapy. [employer] drug information is an informational resource designed to assist licensed healthcare practitioners in caring for their patients and/or to serve consumers viewing this service as a supplement to, and not a substitutefor, the expertise, skill, knowledge and judgment of healthcare practitioners. The absence of a warning for a given drug or drug combination in no way should be construed to indicate that the drug ordrug combination is safe, effective or appropriate for any given patient. [employer] does not assume any responsibility for any aspect of healthcare administered with the aid of information [employer] provides. The information contained herein is not intended to cover all possible uses, directions, precautions, warnings, drug interactions, allergic reactions, or adverse effects. If you have questions about the drugs you are taking, check with your doctor, nurse or pharmacist.?Copyright 5096-9910 [employer]. Version: 3.07. Revision Date: 04/17/2017. ? amoxicillin and clavulanate potassium?? (am OK i MARY ELLEN in ??KLAV ue HOLLI ate ??martha TAS ee um) ?? Augmentin?What is the most important information I should know about amoxicillin and clavulanate potassium?You should not use this medicine if you have severe kidney disease, if you have had liver problems or jaundice while taking amoxicillin and clavulanate potassium, or if you are allergic to any penicillin or cephalosporin antibiotic, such as Amoxil, Ceftin, Cefzil, Moxatag, Omnicef, and others. ?What is amoxicillin and clavulanate potassium?Amoxicillin is a penicillin antibiotic. Clavulanate potassium helps prevent certain bacteria from becoming resistant to amoxicillin. ?Amoxicillin and clavulanate potassium is a combination medicine used to treat many different infections caused by bacteria, such as sinusitis, pneumonia, ear infections, bronchitis, urinary tractinfections, and infections of the skin. ?Amoxicillin and clavulanate potassium may also be used for purposes not listed in this medication guide. ?What should I discuss with my healthcare provider before taking amoxicillin and clavulanate potassium?You should not use this medicine if you are allergic to it, or if: ?you have severe kidney disease (or if you are on dialysis);?you have had liver problems or jaundice while taking amoxicillin and clavulanate potassium;or ?you are allergic to any penicillin or cephalosporin antibiotic, such as Amoxil, Ceftin, Cefzil, Moxatag, Omnicef, and others. ?Tell your doctor if you have ever had: ?liver disease (hepatitis or jaundice); ?kidney disease; or ?mononucleosis. ?The??liquid??or??chewable tablet??may contain phenylalanine. ??Tell your doctor if you have phenylketonuria (PKU). ?Tell your doctor if you are or . ?Amoxicillin and clavulanate potassium can make control pills less effective. Ask your doctor about using a non-hormonal control (condom, diaphragm, cervical cap, or contraceptive sponge) to prevent . ?Do not give this medicine to a child without medical advice. ?How should I take amoxicillin and clavulanate potassium?Follow all directions on your prescription label and read all medication guides or instruction sheets. ??Use the medicine exactly as directed. ?Amoxicillin and clavulanate potassium may work best if you take it at the start of a meal. ?Take the medicine every 12 hours.?Do not crush or chew the??extended-release tablet. ??Swallow the pill whole, or break the pill in half and take both halves one at a time. Tell your doctor if you have trouble swallowing a whole or half pill. ?You must chew the??chewable tablet??before you swallow it. ?Shake the??oral suspension??(liquid) before you measure a dose. Use the dosing syringe provided, or use a medicine dose-measuring device (not a kitchen spoon). ?This medicine can affect the results of certain medical tests. ??Tell any doctor who treats youthat you are using amoxicillin and clavulanate potassium. ?Use this medicine for the full prescribed length of time, even if your symptoms quickly improve. ??Skipping doses can increase your risk of infection that is resistant to medication. ??Amoxicillin and clavulanate potassium will not treat a viral infection such as the flu or a common cold. ?Store the??tablets??at room temperature away from moisture and heat. ?Store the??liquid??in the refrigerator. Throw away any unused liquid after 10 days. ?What happens if I miss a dose?Take the medicine as soon as you can, but skip the missed dose if it is almost time for your next dose.??Do not??take two doses at one time.?What happens if I overdose?Seek emergency medical attention or call the Poison Help line at . ?Overdose can cause nausea, vomiting, stomach pain, diarrhea, skin rash, drowsiness, hyperactivity, and decreased urination. ?What should I avoid while taking amoxicillin and clavulanate potassium?Avoid taking this medicine together with or just after eating a high-fat meal. ??This will makeit harder for your body to absorb the medication. ?Antibiotic medicines can cause diarrhea, which may be a sign of a new infection. ??If you have diarrhea that is watery or bloody, call your doctor before using anti-diarrhea medicine.?What are the possible side effects of amoxicillin and clavulanate potassium?Get emergency medical help if you have??signs of an allergic reaction??(hives, difficult breathing, swelling in your face or throat)??or a severe skin reaction??(fever, sore throat, burning eyes,skin pain, red or purple skin rash with blistering and peeling). ?Stop using amoxicillin and clavulanate potassium and seek medical treatment if you have a serious drug reaction that can affect many parts of your body.?Symptoms may include skin rash, fever, swollen glands, muscle aches, severe weakness, unusual bruising, or yellowing of your skin or eyes. ?Call your doctor at once if you have: ?severe stomach pain, diarrhea that is watery or bloody (even if it occurs months after yourlast dose); ?pale or yellowed skin, dark colored urine, fever, confusion or weakness; ?loss of appetite, upper stomach pain; ?little or no urination; or ?easy bruising or bleeding. ?Common side effects may include: ?nausea, vomiting; diarrhea;?rash, itching;?vaginal itching or discharge; or ?diaper rash. ?This is not a complete list of side effects and others may occur. Call your doctor for medical advice about side effects. You may report side effects to FDA at 8-150-HEC-0929. ?What other drugs will affect amoxicillin and clavulanate potassium?Tell your doctor about all your other medicines, especially: ?allopurinol; ?probenecid; or ?a blood thinner--warfarin, Coumadin, Jantoven. ?This list is not complete. ??Other drugs may affect amoxicillin and clavulanate potassium, including prescription and yrcv-nbb-stcjkov medicines, vitamins, and herbal products. ??Not all possibledrug interactions are listed here. ?Where can I get more information?Your doctor or pharmacist can provide more information about amoxicillin and clavulanate potassium. ?Remember, keep this and all other medicines out of the reach of children, never share your medicines with others, and use this medication only for the indication prescribed. ?Every effort has been made to ensure that the information provided by [employer]') is accurate, up-to-date, and complete, but no guarantee is made to that effect. Drug information contained herein may be time sensitive. [employer] information has been compiled for use by healthcare practitioners and consumers in the [place] and therefore [employer] does not warrant that uses outside of the [place] are appropriate, unless specifically indicated otherwise. [facility]'s drug information does not endorse drugs, diagnose patients or recommend therapy. [facility] drug information is an informational resource designed to assist licensed healthcare practitioners in caring for their patients and/or to serve consumers viewing this service as a supplement to, and not a substitutefor, the expertise, skill, knowledge and judgment of healthcare practitioners. The absence of a warning for a given drug or drug combination in no way should be construed to indicate that the drug ordrug combination is safe, effective or appropriate for any given patient. [facility] does not assume any responsibility for any aspect of healthcare administered with the aid of information [facility] provides. The information contained herein is not intended to cover all possible uses, directions, precautions, warnings, drug interactions, allergic reactions, or adverse effects. If you have questions about the drugs you are taking, check with your doctor, nurse or pharmacist.?Copyright [employer], [employer]. Version: . Revision Date: 08/15/2022. ? Patient Name:YVETTE DRAPER I have received this information and my questions have been answered. 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 Name: 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 Signature: Relationship to Patient: Witness Name/Signature: Date: Electronically Signed on: 11/16/2022 16:47 ESTSigned by:ANNE MARIE EKG study * Event Display: Electrocardiogram EKG US Heart * Event Display: Echo Report * Event Display: Echo Report Physician Emergency department Note * Kusum Aguilar MD: MODIFY, PERFORM, MODIFY, MODIFY Event Display: ED Note Physician Authored Date: [id number] DRAPER YVETTE Chaitanya :1945 Age:77 years Sex:Female Visit Date:11/11/2022 Primary Care Physician: Belgica Farr MD Basic Information Time Seen: Kusum Aguilar MD / 11/11/2022 12:25 Chief Complaint patient presents today and is unable to vocalize why she is here. alert to self and year. drowsiness while try to triage. History Of Present Illness: This patient is a 77-year-old female with history of diabetes, sleep apnea and vocal cord paralysiswho presents emergency department today for evaluation of shortness of breath, hypoxia and cough.??She is also had some altered mental status.?? The patient's son is here with her today and states that last week he had a sore throat and thinks that he had a virus which she may have passed on to his mother.?? Over the last few days the patient has had increased coughing and at home her pulse ox was low around 75.?? The patient's son states that last night she was wearing her CPAP to sleep and he noted that she was coughing.?? This morning she was very sleepy and when he called her from work she answered the phone but then dropped it.?? That prompted him to come back home to check on the patient and he found her less responsive than usual.?? The patient is able to open her eyes and is alert and oriented x2.?? She did think it was 2021.?? The patient is able to tell me that she does not have any pain complaints.?? She does feel short of breath.?? It is unknown if she has had any fever at home.?? Patient was also able to tell me as well as her son that she wishes to be DNR/DNI Physical Exam Vitals & Measurements T:??36.8?C ??(Tympanic)?? HR:??84??(Monitored)?? RR:??17?? BP:??94/78?? SpO2:??99%?? HT:??170.000??cm?? WT:??96.00??kg??(Estimated)?? O2 Flow Rate:??6?? O2 Therapy:??BiPAP?? General: ??AAOx2. ??Drowsy but awakens to voice. ??Tachypneic with shallow respirations Head: ??Atraumatic; Normocephalic Eye: ??PERRLA; EOMI; no scleral icterus / pallor ENT: moist mucous membranes; no epistaxis. No stridor. Neck: ??Active ROM intact; Trachea Midline. ??No JVD. ??No meningismus appreciated. Skin: Warm, dry Chest:??Very diminished breath sounds bilaterally. ??No obvious wheezing.?? Patient is taking??frequent shallow breaths.. Heart: RRR; no murmur, rub, or gallop Abdomen: ??Soft, non-tender, non-distended, no guarding, rebound, or rigidity. No Hepatosplenomegaly Musculoskeletal: ??ROM intact of all extremities/joints without discomfort. ??Sensation grossly intact throughout. ??No obvious deformity. ??Strength Intact 5/5 throughout. ?? Neuro: Sleepy but arousable to voice and oriented x2. Answering questions in a whispering voice. Medical Decision Making: Patient's VBG shows a respiratory acidosis.?? She did improve somewhat on nasal cannula oxygen but I think the patient would do better if she was on BiPAP.?? Patient's white blood cell count was veryelevated at 18.?? Chest x-ray showed bilateral infiltrates and so I will order some Rocephin and azithromycin.?? Patient's lactic acid is elevated at 3.?? IV fluids were also ordered.?? Patient's CMPshowed a mildly elevated potassium and creatinine was 3.04 where previously her creatinine had beennormal.?? Patient's troponin was also elevated at 0.82 but I think this is likely due to demand ischemia from her hypoxia which is likely been going on for several days at home.?Patient has an EKG??which shows a sinus rhythm with a right bundle branch block. ??There are some ST segment changes in leads I and aVL however??the lateral lead??ST segment changes are seen on previous EKG??in the medical record. ??The patient's COVID test was negative.?? A full respiratory panel is negative. 2:15 PM???on reevaluation the patient is on BiPAP and??is awake and alert and conversing. ??She??has shown significant improvement??since initial evaluation. 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 6.??Acute kidney injury??N17.9 7.??Infection??B99.9 8.??Elevated liver enzymes??R74.8 Orders: Blood Culture, Blood, Arm R, Stat collect, ST - Stat, 11/11/22 13:47:00 EST, Once, Nurse collect, Print Label Blood Culture, Blood, Hand L, Stat collect, ST - Stat, 11/11/22 13:47:00 EST, Once, Nurse collect, Print Label CV Electrocardiogram 12 Lead, 11/11/22 12:52:00 EST, Routine, Reason: Dyspnea, Stop date and time 11/11/22 12:52:00 EST, ORD_SET_REQ_DT_RANGE, [facility] Internal Person Id Decision to Admit, 11/11/22 13:00:00 EST, Medical Unit Medication Reconciliation Unchanged alendronate (alendronate 70 mg oral tablet)1 tab Oral (given by mouth) every week. Refills: 0. ?? alendronate (alendronate 70 mg oral tablet)1 tab Oral (given by mouth) every week. on Thursday. ?? aspirin (Aspirin Enteric Coated)325 Milligrams Oral (given by mouth) 2 times a day. ?? atorvastatin (atorvastatin 10 mg oral tablet)1 tab Oral (given by mouth) every evening for 90 Days.Refills: 3. ?? calcium-vitamin D (calcium (as carbonate)-vitamin D 600 mg-200 intl units oral tablet)1 tab Oral (given by mouth) every day. ?? citalopram (citalopram 20 mg oral tablet)1 tab Oral (given by mouth) every morning. ?? docusate (docusate sodium 100 mg oral capsule)1 Capsules Oral (given by mouth) 2 times a day as needed as needed for constipation. ?? furosemide (furosemide 40 mg oral tablet)1 tab Oral (given by mouth) every morning for 90 Days. Refills: 3. ?? gabapentin (gabapentin 100 mg oral capsule)1 Capsules Oral (given by mouth) 2 times a day for 90 Days. Refills: 1. ?? ipratropium-albuterol (ipratropium-albuterol 0.5 mg-2.5 mg/3 mL inhalation solution)3 Milliliters Nebulized inhalation (inhale using nebulizer) every 4 hours as needed shortness of breath. ?? lactobacillus acidophilus (Acidophilus Probiotic Blend)1 Capsules Oral (given by mouth) every day. ?? lansoprazole (lansoprazole 30 mg oral delayed release capsule)1 Capsules Oral (given by mouth) every morning. ?? levothyroxine (levothyroxine 137 mcg (0.137 mg) oral tablet)1 tab Oral (given by mouth) With Morning Meal. ?? losartan (losartan 100 mg oral tablet)1 tab Oral (given by mouth) every day for 90 Days. Refills: 3. ?? metFORMIN (metFORMIN 500 mg oral tablet)1 tab Oral (given by mouth) every evening for 90 Days. Refills: 3. ?? metoprolol (metoprolol tartrate 25 mg oral tablet)1 tab Oral (given by mouth) 2 times a day for 90 Days. Refills: 3. ?? multivitamin (multivitamin adult, oral tablet)1 tab Oral (given by mouth) every day. ?? senna (Senna Lax 8.6 mg oral tablet)2 tab Oral (given by mouth) every night at bedtime as needed asneeded for constipation. ?? ubiquinone (Coenzyme Q10 100 mg oral [...] Sodium Chloride 0.9%, 1000 mL, Hydration Bolus azithromycin, IV Piggyback cefTRIAXone, 2 g, IV Piggyback ipratropium-albuterol 0.5 mg-2.5 mg/3 mL inhalation solution, 3 mL, NEB Allergies Flomax??(Dizziness) sulfa drugs??(Rash, Hallucinations) Social History Alcohol Past Electronic Cigarette/Vaping Electronic Cigarette Use: Never. Employment/School Retired Tobacco Never tobacco user Tobacco Use:. Family History Breast cancer: Mother and Aunt/Uncle. Cancer: Son. Heart: Mother and Father. Diagnostic Results XR Chest 1 View 11/11/2022 13:14 EST XR Chest 1 View ?? 11/11/22 13:12:04 EXAM DESCRIPTION: XR Chest 1 View ?? 11/11/2022 ?? INDICATION: SOB ?? COMPARISON: 08/14/2022 ?? IMPRESSION: Mild bilateral interstitial infiltrates which may reflect interstitial pulmonary edema or interstitial pneumonitis. No focal consolidation ?? Mild stable cardiomegaly with previous median sternotomy and valve replacement. ?? No significant pleural effusion or pneumothorax. ? JOB #: [id number] Electronically Signed By: ?? Signed By: Kishore Parra MD Lab Results Blood Gases?? LATEST RESULTS?? HISTORICAL RESULTS?? pH Addison?? 11/11/22 12:28?? 7.28 ??Low?? 08/16/22?? 7.59 ??High?? pCO2 Addison?? 11/11/22 12:28?? 60.0 ??High?? 08/16/22?? 29 ??Low?? HCO3 Venous?? 11/11/22 12:28?? 28.2?? 08/16/22?? 27.8?? CO2 Total Venous?? 11/11/22 12:28?? 30.0 ??High?? 08/16/22?? 28.7 ??High?? Base Excess Venous?? 11/11/22 12:28?? 0.1?? 08/16/22?? 7? CBC and Differential?? LATEST RESULTS?? HISTORICAL RESULTS?? WBC?? 11/11/22 12:28?? 18.0 ??High?? 08/16/22?? 7.0?? RBC?? 11/11/22 12:28?? 4.24?? 08/16/22?? 3.79 ??Low?? Hgb?? 11/11/22 12:28?? 12.1?? 08/16/22?? 10.8 ??Low?? Hct?? 11/11/22 12:28?? 39.8?? 08/16/22?? 34.2 ??Low?? MCV?? 11/11/22 12:28?? 93.9?? 08/16/22?? 90.2?? MCH?? 11/11/22 12:28?? 28.5?? 08/16/22?? 28.5?? MCHC?? 11/11/22 12:28?? 30.4 ??Low?? 08/16/22?? 31.6 ??Low?? RDW-CV?? 11/11/22 12:28?? 15.0 ??High?? 08/16/22?? 14.5?? Platelets?? 11/11/22 12:28?? 239?? 08/16/22?? 154?? MPV?? 11/11/22 12:28?? 12.7 ??High?? 08/16/22?? 11.8 ??High?? Neutro Auto?? 11/11/22 12:28?? 87.4 ??High?? 08/16/22?? 77.2 ??High?? Lymph Auto?? 11/11/22 12:28?? 4.9 ??Low?? 08/16/22?? 13.7 ??Low?? Mcclain Auto?? 11/11/22 12:28?? 6.9?? 08/16/22?? 8.3?? Eos, Auto?? 11/11/22 12:28?? 0.00?? 08/16/22?? 0.30?? Basophil Auto?? 11/11/22 12:28?? 0.4?? 08/16/22?? 0.1?? Imm Gran Auto?? 11/11/22 12:28?? 0.4?? 08/16/22?? 0.4?? Neutro Absolute?? 11/11/22 12:28?? 15.7 ??High?? 08/16/22?? 5.4?? Lymph Absolute?? 11/11/22 12:28?? 0.9 ??Low?? 08/16/22?? 1.0 ??Low?? Mcclain Absolute?? 11/11/22 12:28?? 1.2 ??High?? 08/16/22?? 0.6?? Eos Absolute?? 11/11/22 12:28?? 0.0?? 08/16/22?? 0.0?? Baso Absolute?? 11/11/22 12:28?? 0.1?? 08/16/22?? 0.0?? Imm Gran Absolute?? 11/11/22 12:28?? 0.08?? 08/16/22?? 0.03?? RBC Morph?? 11/11/22 12:28?? Normal?? 08/15/22?? Abnormal Abnormal?? Plt Estimation?? 11/11/22 12:28?? Normal?? 08/15/22?? Normal? Coagulation?? LATEST RESULTS?? HISTORICAL RESULTS?? Prothrombin Time?? 11/11/22 12:28?? 10.9 ??High?? 08/14/22?? 10.5?? INR?? 11/11/22 12:28?? 1.1?? 08/14/22?? 1.0? Routine Chemistry?? LATEST RESULTS?? HISTORICAL RESULTS?? Sodium Level?? 11/11/22 12:28?? 139?? 08/16/22?? 145 ??High?? Potassium Level?? 11/11/22 12:28?? 5.3 ??High?? 08/16/22?? 3.6?? Chloride Level?? 11/11/22 12:28?? 96 ??Low?? 08/16/22?? 110?? CO2?? 11/11/22 12:28?? 24?? 08/16/22?? 25?? Alk Phos?? 11/11/22 12:28?? 75?? 08/14/22?? 49?? AST?? 11/11/22 12:28?? 503 ??High?? 08/14/22?? 21?? ALT?? 11/11/22 12:28?? 442 ??High?? 08/14/22?? 11 ??Low?? BUN?? 11/11/22 12:28?? 41 ??High?? 08/16/22?? 26?? Glucose Level?? 11/11/22 12:28?? 254 ??High?? 08/16/22?? 125 ??High?? Creatinine Level?? 11/11/22 12:28?? 3.04 ??High?? 08/16/22?? 0.80?? BUN/Creat Ratio?? 11/11/22 12:28?? 13.5?? 08/16/22?? 32.5 ??High?? eGFR AA?? 11/11/22 12:28?? 15?? 08/16/22?? 76?? eGFR Non-AA?? 11/11/22 12:28?? 15?? 08/16/22?? 76?? Calcium Level?? 11/11/22 12:28?? 8.6 ??Low?? 08/16/22?? 8.5 ??Low?? Protein Total?? 11/11/22 12:28?? 7.6?? 08/14/22?? 6.2 ??Low?? Albumin Level?? 11/11/22 12:28?? 3.6?? 08/16/22?? 3.2 ??Low?? Globulin?? 11/11/22 12:28?? 4.0?? 08/14/22?? 2.8?? A/G Ratio?? 11/11/22 12:28?? 0.9?? 08/14/22?? 1.2?? Bilirubin Total?? 11/11/22 12:28?? 1.9 ??High?? 08/14/22?? 1.4 ??High?? Anion Gap?? 11/11/22 12:28?? 19.0 ??High?? 08/16/22?? 10.0?? Lactic Acid Lvl?? 11/11/22 14:01?? 1.9? Osmolality?? 11/11/22 12:28?? 296 ??High?? 08/16/22?? 295?? Glucose POC?? 11/11/22 12:36?? 230?? 08/20/22?? 114? Cardiac Isoenzymes?? LATEST RESULTS?? HISTORICAL RESULTS?? Troponin-I?? 11/11/22 12:28?? 0.82 ??Critical?? 08/14/22?? 0.02? Infectious Disease?? LATEST RESULTS?? HISTORICAL RESULTS?? Adenovirus RespP-BFire?? 11/11/22 12:28?? Not Detected? Bordetella parapertussis RespP-BFire?? 11/11/22 12:28?? Not Detected? Bordetella pertussis RespP-BFire?? 11/11/22 12:28?? Not Detected? Chlamydophila pneumoniae RespP-BFire?? 11/11/22 12:28?? Not Detected? Coronavirus 229E (Not COVID-19) RP-BFire?? 11/11/22 12:28?? Not Detected? Coronavirus HKU1 (Not COVID-19) RP-BFire?? 11/11/22 12:28?? Not Detected? Coronavirus NL63 (Not COVID-19) RP-BFire?? 11/11/22 12:28?? Not Detected? Coronavirus OC43 (Not COVID-19) RP-BFire?? 11/11/22 12:28?? Not Detected? SARS-CoV-2 (COVID-19) RP-BFire?? 11/11/22 12:28?? Not Detected? Human Metapneumonovirus RespP-BFire?? 11/11/22 12:28?? Not Detected? Human Rhinovirus/Enterovirus RespP-BFir?? 11/11/22 12:28?? Not Detected? Influenza A RespP-BFire?? 11/11/22 12:28?? Not Detected? Influenza B RespP-BFire?? 11/11/22 12:28?? Not Detected? Mycomplasma pneumoniae RespP-BFire?? 11/11/22 12:28?? Not Detected? Parainfluenza Virus 1 RespP-BFire?? 11/11/22 12:28?? Not Detected? Parainfluenza Virus 2 RespP-BFire?? 11/11/22 12:28?? Not Detected? Parainfluenza Virus 3 RespP-BFire?? 11/11/22 12:28?? Not Detected? Parainfluenza Virus 4 RespP-BFire?? 11/11/22 12:28?? Not Detected? Respiratory Syncytial Virus RespP-BFire?? 11/11/22 12:28?? Not Detected? SARS-CoV or CoV-2 (COVID-19) Ag (Rena)?? 11/11/22 12:18?? Negative? 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 11/11/22 12:28?? Unknown?? 08/20/22?? No?? Symptomatic as defined by CDC??? 11/11/22 12:28?? Unknown?? 08/20/22?? No?? Date of onset (Lab)?? 11/11/22 12:18?? Unknown? Hospitalized due to COVID-19??? 11/11/22 12:28?? Unknown?? 08/20/22?? No?? In ICU??? 11/11/22 12:28?? Unknown?? 08/20/22?? No?? Group care resident??? 11/11/22 12:28?? Unknown?? 08/20/22?? No?? status??? 11/11/22 12:28?? Unknown?? 08/20/22?? Not ? Electronically Signed on 11/12/22 05:54 AM Kusum Aguilar MD Nutrition and dietetics Progress note * Kerry Joseph: PERFORM Event Display: Nutrition Note Authored Date: [id number] Assessment and Monitoring 77 yo F admit for asthma exacerbation/respiratory failure??and on Bipap. Transferred from ICU to [facility] this afternoon. No longer using??bipap during the day.??Saw patient eating soup with diet caffeine free soda. reports good appetite, and it's improving daily. On consistent CHO/low sodium diet- had no questions/concerns about it. On prednisone, likely impacting blood sugars, no really eating high carb meals looking back on meal selection. On SSI, at home on Metformin. Skin intact. Continue to monitor and adjust as needed. Nutrition Diagnosis NCP Diagnosis Priority: 1(Recorded: 11/14/2022 14:40 EST) Decreased nutrient needsrelated to Other: impaired insulin productionas evidenced by elevated bloodsugars and need for exogenous insulin. Nutrition Goals No s/sx hyper,hypoglycemia(Recorded: 11/14/2022 14:40 EST) Nutrition Goal StatusActive Nutrition Interventions Intervention(Recorded: 11/14/2022 14:40 EST) Nutrition InterventionCarbohydrate-modified diet, Mineral-modified diet Anthropometrics/Estimated Needs Zgqdxd261.1 kg(Recorded: 11/11/2022 17:42 EST) Comments: weighed on bed with standard linens. Estimated Energy Needs Low kcal/kg/day18 kcal/kg/day(Recorded: 11/14/2022 14:40 EST) Estimated Energy Needs Low kcal/vzh3756 kcal/day(Recorded: 11/14/2022 14:40 EST) Estimated Energy Needs High kcal/zdo5031 kcal/day(Recorded: 11/14/2022 14:40 EST) Estimated Energy Needs High kcal/kg/day20 kcal/kg/day(Recorded: 11/14/2022 14:40 EST) Estimated Fluid Needs Low mL per bqn7824 mL/day(Recorded: 11/14/2022 14:40 EST) Estimated Fluid Needs High mL per wkr7125 mL/day(Recorded: 11/14/2022 14:40 EST) Estimated Fluid Needs Low mL/kg per day18 mL/kg/day(Recorded: 11/14/2022 14:40 EST) Estimated Fluid Needs High mL/kg per day20 mL/kg/day(Recorded: 11/14/2022 14:40 EST) Estimated Protein Needs Low g/day80 g/day(Recorded: 11/14/2022 14:40 EST) Estimated Protein Needs High g/xbb935 g/day(Recorded: 11/14/2022 14:40 EST) Estimated Protein Needs Low g/kg/day0.8 g/kg/day(Recorded: 11/14/2022 14:40 EST) Estimated Protein Needs High g/kg/day1.0 g/kg/day(Recorded: 11/14/2022 14:40 EST) Reason for Visit patient presents today and is unable to vocalize why she is here. alert to self and year. drowsiness while try to triage. Problem List/Past Medical History Ongoing Acquired hypothyroidism [...] Mother and Father. Diet Orders Diet Order, 11/11/22 15:26:00 EST, Consistent Carbohydrates, Na: 2 g sodium Allergies Flomax??(Dizziness) sulfa drugs??(Rash, Hallucinations) Nutrition Lab Results Test Name Test Result Date/Time WBC 13.0 K/mcL 11/14/2022 04:00 EST Hgb 10.3 g/dL 11/14/2022 04:00 EST Hct 33.3 % 11/14/2022 04:00 EST MCV 91.7 fL 11/14/2022 04:00 EST Platelets 220 K/mcL 11/14/2022 04:00 EST INR 1.1 11/11/2022 12:28 EST Partial Thromboplastin Time 34.3 seconds 11/14/2022 04:00 EST Sodium Level 137 mmol/L 11/14/2022 04:00 EST Potassium Level 3.8 mmol/L 11/14/2022 04:00 EST Chloride Level 100 mmol/L 11/14/2022 04:00 EST CO2 22 mmol/L 11/14/2022 04:00 EST Alk Phos 57 IntlUnit/L 11/14/2022 04:00 EST ALT 238 IntlUnit/L 11/14/2022 04:00 EST BUN 61 mg/dL 11/14/2022 04:00 EST Glucose Level 219 mg/dL 11/14/2022 04:00 EST Creatinine Level 1.94 mg/dL 11/14/2022 04:00 EST Phosphorus Level 4.4 11/11/2022 12:35 EST Albumin Level 2.9 g/dL 11/14/2022 04:00 EST Bilirubin Total 0.5 mg/dL 11/14/2022 04:00 EST Magnesium Level 2.0 mg/dL 11/14/2022 04:00 EST Medications Inpatient dextromethorphan-guaifenesin 20 mg-200 mg/10 mL oral liquid, 10 mL, Oral, every 4 hr, PRN Dextrose 50% injection, 25 g= 50 mL, IV Push, As Directed doxycycline glucagon, 1 mg= 1 EA, Subcutaneous, As Directed insulin aspart Sliding Scale - High Dose, Insulin Aspart Sliding Scale See Comment, Subcutaneous, AC & bedtime ipratropium-albuterol 0.5 mg-2.5 mg/3 mL inhalation solution, 3 mL, NEB, every 3 hr, PRN Lactated Ringers Injection 1,000 mL, 1000 mL, IV Lovenox, 30 mg= 0.3 mL, Subcutaneous, Daily melatonin 3 mg oral tablet, 6 mg= 2 tab, Oral, every night at bedtime, PRN Metoprolol Succinate ER, 25 mg= 1 tab, Oral, BID Metoprolol Tartrate, 5 mg= 5 mL, IV Push, every 5 min, PRN Metoprolol Tartrate, 5 mg= 5 mL, IV Push, every 5 min, PRN predniSONE, 40 mg= 2 tab, Oral, BID Tessalon Perles, 200 mg= 2 cap, Oral, TID, PRN Zosyn Home Acidophilus Probiotic Blend, 1 cap, Oral, [...] capsule, 100 mg= 1 cap, Oral, BID, 1 refills ipratropium-albuterol 0.5 mg-2.5 mg/3 mL inhalation solution, [...] tab, Oral, every night at bedtime, PRN Electronically Signed on 11/14/22 03:13 PM Kerry Joseph Progress note * Nii Moon MD: PERFORM Event Display: Progress Note - Physician Authored Date: [id number] YVETTE DRAPER :1945 Age:77 years Sex:Female Visit Date:11/11/2022 Primary Care Physician: Belgica Farr MD Anticipated Discharge Date Tomorrow Subjective The patient feels better Review of Systems Constitutional: Laying better ENT: [No ear pain, nasal congestion, sore throat] Respiratory: Breathing feels better Cardiovascular: No palpitations Gastrointestinal: [No nausea, vomiting, diarrhea] Genitourinary: [No hematuria] Musculoskeletal: [No back pain, neck pain, joint pain, muscle pain, decreased range of motion] Neurologic: [Alert & oriented X 4] Objective Vitals & Measurements T:??36.4?C ??(Temporal Artery)?? TMIN:??36.3?C ??(Temporal Artery)?? TMAX:??36.7?C ??(Temporal Artery)?? HR:??79??(Peripheral)?? RR:??20?? BP:??148/72?? SpO2:??92%?? WT:??106.3??kg?? PainScore:??0?? O2 Flow Rate:??1?? O2 Therapy:??Room air?? Physical Exam General: Oriented x4, pleasant, no.?? HENT:??Normocephalic, clear tympanic membranes, normal hearing, moist oral mucosa, no scleral icterus, no sinus tenderness.?? Lungs: Aeration is good, significant improvement.?? Heart: Tachycardia. Abdomen:??Soft, non-tender, non-distended, normal bowel sounds, no masses.?? Musculoskeletal:??Normal range of motion and strength, no tenderness or swelling. Skin:??Skin is warm, dry and pink, no rashes or lesions. Neurologic: No focal signs Assessment/Plan 1.??Hypercapnic respiratory failure??J96.92 Improved, off BiPAP, off oxygen. 2.??Asthma??J45.909 Prednisone, taper. 3.??Thrombocytopenia??D69.6 Stable. 4.??Diabetes mellitus type 2??E11.9 On scale, his creatinine continues to improve should be able to restart metformin. 5.??Cardiomyopathy, dilated??I42.0 Cardiac enzymes thought to be secondary to demand, outpatient cardiology work-up. 6.??Acute kidney injury??N17.9 He needed strong improvement 7.??Infection??B99.9 For to Augmentin 8.??Elevated liver enzymes??R74.8 Most likely shock liver,??general surgery as outpatient for large gallstone??without signs of cholecystitis 9.??SVT (supraventricular tachycardia)??I47.1 Back on metoprolol, no further episodes ?? Time??patient care today is 40 minutes. Orders: amoxicillin-clavulanate 500 mg-125 mg oral tablet, 1 tab, Oral, Tab, every 12 hr for 30 days, Antibiotic Indication Pneumonia- CAP, First Dose: 11/15/22 11:00:00 EST, Stop Date: 12/15/22 10:59:00 EST, Physician Stop, Routine Lactated Ringers Injection 1,000 mL, Total Volume (mL): 1,000, 1,000 mL, Soln- IV, IV, 60 mL/hr, Start Date: 11/11/22 15:16:00 EST, 96 kg, Populate Charting Weight From Order, 2.13, m2 lactobacillus acidophilus oral capsule, 1 cap, Oral, Cap, BID for 30 days, First Dose: 11/15/22 21:00:00 EST, Stop Date: 12/15/22 20:59:00 EST, Physician Stop, Routine predniSONE, 40 mg = 2 tab, Oral, Tab, BID for 30 days, First Dose: 11/14/22 21:00:00 EST, Stop Date: 12/14/22 20:59:00 EST, Physician Stop, Routine Basic Metabolic Panel, Blood, Expedite, 11/15/22 10:53:00 EST, Once, Lab Collect Hepatic Function Panel, Blood, Expedite, 11/15/22 10:56:00 EST, Once, Lab Collect Magnesium Level, Blood, Expedite, 11/15/22 10:53:00 EST, Once, Lab Collect Vital Signs, 11/11/22 15:26:00 EST, every 4 hr Electronically Signed on 11/15/22 10:59 AM Nii Moon MD * Nii Moon MD: PERFORM Event Display: Progress Note - Physician Authored Date: [id number] YVETTE DRAPER :1945 Age:77 years Sex:Female Visit Date:11/11/2022 Primary Care Physician: Belgica Farr MD Subjective The patient has no complaints, feels better. Review of Systems Constitutional: Feels better, little weak ENT:??No ear pain, nasal congestion, sore throat Respiratory: Feels breathing is greatly improved Cardiovascular:??No Chest pain, palpitations, syncope Gastrointestinal:??No nausea, vomiting, diarrhea Genitourinary:??No hematuria Musculoskeletal:??No back pain, neck pain, joint pain, muscle pain, decreased range of motion Neurologic:??Alert & oriented X 4 Objective Vitals & Measurements T:??36.4?C ??(Temporal Artery)?? TMIN:??36.0?C ??(Temporal Artery)?? TMAX:??36.4?C ??(Temporal Artery)?? HR:??93??(Peripheral)?? HR:??93??(Monitored)?? RR:??29?? BP:??154/77?? SpO2:??90%?? Pain Score:??0?? O2 Flow Rate:??2?? O2 Therapy:??Nasal cannula?? Physical Exam General: Was a little askew on the date this morning, nonfocal, pleasant, can hold a conversation.?? HENT:??Normocephalic, clear tympanic membranes, normal hearing, moist oral mucosa, no scleral icterus, no sinus tenderness.?? Lungs: Aeration is much better, some small rhonchi improved.?? Heart: No tachycardia. Abdomen:??Soft, non-tender, non-distended, normal bowel sounds, no masses.?? Musculoskeletal:??Normal range of motion and strength, no tenderness or swelling. Skin:??Skin is warm, dry and pink, no rashes or lesions. Neurologic: Cranial nerves II to XII are intact. ??Strength, sensation, reflexes are even intact inupper and lower extremities. ??No focal signs. Lab Results Last 24 Hours?? Chemistry ? Event Name?? Event Result?? Date/Time?? Sodium Level 137 mmol/L 11/14/22 04:00:00 Potassium Level 3.8 mmol/L 11/14/22 04:00:00 Chloride Level 100 mmol/L 11/14/22 04:00:00 CO2 22 mmol/L 11/14/22 04:00:00 Alk Phos 57 IntlUnit/L 11/14/22 04:00:00 AST 95 IntlUnit/L??High 11/14/22 04:00:00 ALT 238 IntlUnit/L??High 11/14/22 04:00:00 BUN 61 mg/dL??High 11/14/22 04:00:00 Glucose Level 219 mg/dL??High 11/14/22 04:00:00 Creatinine Level 1.94 mg/dL??High 11/14/22 04:00:00 BUN/Creat Ratio 31.4??High 11/14/22 04:00:00 eGFR AA 26 11/14/22 04:00:00 eGFR Non-AA 11/14/22 04:00:00 Calcium Level 7.7 mg/dL??Low 11/14/22 04:00:00 Protein Total 6 g/dL??Low 11/14/22 04:00:00 Albumin Level 2.9 g/dL??Low 11/14/22 04:00:00 Globulin 3.1 11/14/22 04:00:00 A/G Ratio 0.9 11/14/22 04:00:00 Bilirubin Total 0.5 mg/dL 11/14/22 04:00:00 Bilirubin Direct 0.2 11/14/22 04:00:00 Anion Gap 15??High 11/14/22 04:00:00 Lactic Acid Lvl 1.2 mmol/L 11/14/22 04:00:00 Magnesium Level 2 mg/dL 11/14/22 04:00:00 Osmolality 298 mOsm/kg??High 11/14/22 04:00:00 CRP 86.2??High 11/14/22 04:00:00 Glucose POC 247 11/13/22 20:37:00 ? Hematology ? Event Name?? Event Result?? Date/Time?? WBC 13 K/mcL??High 11/14/22 04:00:00 RBC 3.63 Million/mcL??Low 11/14/22 04:00:00 Hgb 10.3 g/dL??Low 11/14/22 04:00:00 Hct 33.3 %??Low 11/14/22 04:00:00 MCV 91.7 fL 11/14/22 04:00:00 MCH 28.4 pg 11/14/22 04:00:00 MCHC 30.9 g/dL??Low 11/14/22 04:00:00 RDW-CV 14.6 %??High 11/14/22 04:00:00 Platelets 220 K/mcL 11/14/22 04:00:00 MPV 11.4 fL??High 11/14/22 04:00:00 Neutro Auto 86.8 %??High 11/14/22 04:00:00 Lymph Auto 3.6 %??Low 11/14/22 04:00:00 Mcclain Auto 4.6 % 11/14/22 04:00:00 Eos, Auto 0.5 % 11/14/22 04:00:00 Basophil Auto 0.3 % 11/14/22 04:00:00 Imm Gran Auto 4.2 %??High 11/14/22 04:00:00 Neutro Absolute 11.3 K/mcL??High 11/14/22 04:00:00 Lymph Absolute 0.5 K/mcL??Low 11/14/22 04:00:00 Mcclain Absolute 0.6 K/mcL 11/14/22 04:00:00 Eos Absolute 0.1 K/mcL 11/14/22 04:00:00 Baso Absolute 0 K/mcL 11/14/22 04:00:00 Imm Gran Absolute 0.55 11/14/22 04:00:00 ? Coagulation/Thrombosis ? Event Name?? Event Result?? Date/Time?? Partial Thromboplastin Time 34.3 seconds??High 11/14/22 04:00:00 ? Blood Gases ? Event Name?? Event Result?? Date/Time?? pH Addison 7.36 pH unit(s) 11/14/22 09:10:00 pCO2 Addison 50 mmHg 11/14/22 09:10:00 HCO3 Venous 28.2 mmol/L 11/14/22 09:10:00 CO2 Total Venous 29.7 mmol/L??High 11/14/22 09:10:00 Base Excess Venous 1.9 11/14/22 09:10:00 ? Assessment/Plan 1.??Hypercapnic respiratory failure??J96.92 Resolved, off BiPAP now since yesterday. ??Will do BiPAP at night however as she does CPAP at home at night. ??She is not hypercapnic and I do not believe??her mild confusion this morning is related to such.?? She is not hypoxic of significance either. ??Her infectious status is clear.?? I will adda TSH, B12, folate but I think moving the patient out of the ICU??after a long stay with hypercapnia in the ICU may be??the most??therapeutic. ??She has nonfocal no imaging at this time. 2.??Asthma??J45.909 Prednisone, duo nebs,??changed to as needed, lower prednisone. 3.??Thrombocytopenia??D69.6 Stable. 4.??Diabetes mellitus type 2??E11.9 As steroids decrease anticipate the blood sugars to decrease as well, continue scale. ??Metformin held in setting of acute kidney injury. 5.??Cardiomyopathy, dilated??I42.0 On his most likely secondary to demand, echocardiogram not revealing.?? Outpatient cardiology work-up appropriate. 6.??Acute kidney injury??N17.9 Continues to improve, gentle hydration 7.??Infection??B99.9 Zosyn and doxycycline for pneumonia.?? Start to wean. ??Augmentin would be appropriate. 8.??Elevated liver enzymes??R74.8 Normalizing, most likely secondary to shock.?? Gallstone without signs of cholecystitis. ??General surgery referral as outpatient??when this event has passed. 9.??SVT (supraventricular tachycardia)??I47.1 She is back on her baseline metoprolol with no further events. ?? Time spent on patient care today is 40 minutes. Orders: Lactated Ringers Injection 1000 mL, Total Volume (mL): 1,000, 1,000 mL, Soln-IV, IV, 60 mL/hr, Start Date: 11/11/22 15:16:00 EST, 96 kg, Populate Charting Weight From Order, 2.13, m2 PSO Admit to Inpatient, [facility], Inpatient, 11/14/22 10:47:00 EST, 11/14/22 10:47:00 EST, 11/14/22 10:47:00 EST, Less than 96 hours Electronically Signed on 11/14/22 11:02 AM Nii Moon MD * Event Display: Progress Note - Physician Authored Date: [id number] Attending Physician - Brief Progress Note PERMANENT 11/14/2022 10:58 [facility] - ICU YVETTE DRAPER Date of Service 11/14/2022 10:58 HPI/Events of Note TeleICU Physician Note I established audio/visual connection with the patient's room, reviewed the EMR . 77F admitted 11/11 with respiratory failure with chest imaging showing multifocal infiltrates and areas of mucos plugging c/w pneumonia. Notes mention history of vocal cord paralysis and asthma? Also found to have NOVA. Possible shock liver, and suspected type II NSTEMI. PMH notable for NHL, ITP, CAD,and cardiomyopathy On 2LNC this AM. Good UOP. Cr steadily improving. LFTs downtrending. VBG today shows 7.36/50 indicating compensated chronic hypercarbia Meds include: doxycycline, LMWH, Zosyn, Methylpred 40Q8, Metop 25 BID, Duonebs Q6, cIVF with LR On camera: NAD, upright in chair, breathing non-labored Labs reviewed A/P: 77F presented with hypoxemic and hypercarbic respiratory failure, acute liver injury, and NOVA all of which are much improved. 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 Agree with empiric ABx and would complee an empiric 5-7d course. Can change IV Solumedrol to Predinsone 40mg to complete 5d, extend taper if significant wheezing. When durably taking PO can stop cIVF. Doing well off NIPPV ??? assess by exam and spot check VBG if worsening somnolence or inc WOB. No critical care recommendations at this time Interventions Major-Acute renal failure - evaluation and management, Infection - evaluation and management, Respiratory failure - evaluation and management History and physical note * Nii Moon MD: MODIFY, PERFORM, MODIFY Event Display: History and Physical Authored Date: [id number] YVETTE DRAPER :1945 Age:77 years Sex:Female Visit Date:11/11/2022 Primary Care Physician: Belgica Farr MD Chief Complaint patient presents today and is unable to vocalize why she is here. alert to self and year. drowsiness while try to triage. History of Present Illness This is a 77-year-old female who I am meeting for the first time on this visit.?? She has a severe medical history which includes non-Hodgkin's lymphoma, ITP with thrombocytopenia,??CAD, cardiomyopathy,??[id number] diabetes??to??name??a few. ?? She denies a history of asthma??but it is listed on her history??list?Further, she states she??has??chronic wheezing. ?? Her son recently had??a viral illness.?? According the son??and patient is seems she may have had the same. ??She recently had??general myalgias.?Her son supports that she has been wheezing recently but again she states is chronic. ?? When the patient's??son left to go to work this morning he noticed that her saturations were in the70s. ??He did go to work. ??But when he returned his??mother was??obtunded. ??She came to the emergency room as such. ?? In the emergency room the patient is noted to have hypercapnic respiratory failure.?? She is started on BiPAP and her mental status immediately returns. ??Repeat ABG pending. ?? Possible findings on x-ray, Rocephin and??azithromycin started. ??CT chest ordered by myself. ?? She has acute on chronic kidney injury.?? Urine studies are pending, IV fluid given. ?? She has??elevated liver enzymes. I have sent out laboratory values. ??CT ab pelvis pending. ?? She has positive troponins in the setting of hypoxia as well most likely secondary??to ischemic demand, NSTEMI type II. ?? When I see the patient she is already recovering on BiPAP.?? She is able to converse. ??Stat ABG ispending. ??We will start in the ICU??and depending on how the patient recovers??will determine her level of care. ?? She??has multiple medical issues to be discussed. ??Please see assessment and plan. Review of Systems Constitutional: Reports lethargy that is resolved ENT:??No ear pain, nasal congestion, sore throat Respiratory: Hurts??acute on chronic wheezing??with some mild dyspnea Cardiovascular: No chest pain Gastrointestinal:??No nausea, vomiting, diarrhea Genitourinary:??No hematuria Musculoskeletal: Generalized weakness over the last few days Neurologic: Self-limiting lethargy without focal complaints Physical Exam Vitals & Measurements T:??36.8?C ??(Tympanic)?? HR:??84??(Monitored)?? RR:??17?? BP:??94/78?? SpO2:??99%?? HT:??170.000??cm?? WT:??96.00??kg??(Estimated)?? O2 Flow Rate:??6?? O2 Therapy:??BiPAP?? General: At time of exam oriented x4, tolerating BiPAP but able to follow along.?? HENT:??Normocephalic, clear tympanic membranes, normal hearing, moist oral mucosa, no scleral icterus, no sinus tenderness.?? Lungs: Air movement is moderate at best, slight expiratory wheeze, no specific area of concern.?? Heart: Heart is regular rhythm, no notable edema.. Abdomen:??Soft, non-tender, non-distended, normal bowel sounds, no masses.?? Musculoskeletal:??Normal range of motion and strength, no tenderness or swelling. Skin:??Skin is warm, dry and pink, no rashes or lesions. Neurologic: At time of exam oriented x4 nonfocal. Assessment/Plan 1.??Hypercapnic respiratory failure??J96.92 Most likely secondary to??asthma exacerbation, possible infectious illness.?? BiPAP, repeat ABG,??ICU level of care to start. ??She is already making great response and I anticipate??her pH to be??corrected. ??I believe there is some level??of baseline hypercapnia. 2.??Asthma??J45.909 DuoNebs standing and as needed, Solu-Medrol to start. 3.??Thrombocytopenia??D69.6 Stable, no??signs of hemolytic anemia, ITP??exacerbation. 4.??Diabetes mellitus type 2??E11.9 Hold metformin in setting of acute kidney injury.?? We will start sliding scale. ??Anticipate bloodsugars may climb??with the steroids so prepared to be aggressive with such. 5.??Cardiomyopathy, dilated??I42.0 We will repeat echocardiogram to get sense of cardiac status.?? Fluid overload seems unlikely and this appears to be more likely dehydration.?? TTE will help. ??IV fluid will be given in setting of acute kidney injury. ??CT chest also help delineate between fluid or infectious process or??pulmonaryprocess. ?? Positive troponins-Most likely secondary to significant hypoxia??with probable??underlying disease.?? NSTEMI??type II most likely but consider alternative. ??No chest pain. ??Repeat troponin. ??Trend. ??Repeat EKG, trend. 6.??Acute kidney injury??N17.9 Most likely secondary to dehydration over the last few days. ??Urine urea, urine creatinine, urine sodium pending.?? IV fluid. ??Phosphorus added.?? Hold nephrotoxic agents. 7.??Infection??B99.9 Viral panel is negative.?? I will send a CT chest to delineate??between fluid??and potential pneumonia. ??With the elevated procalcitonin,??significant elevated CRP bacterial pneumonia will be undertaken and continue to look for further sources. ??Zosyn??and atypicals will be further covered tomorrow.?Low incidence of MRSA pneumonia in our community, hold vancomycin for now,??MRSA nares.?? Full??work-up including??blood cultures x2, sputum culture, strep and Legionella urinary antigen. 8.??Elevated liver enzymes??R74.8 May be secondary to dehydration, shock liver. ??EBV, CMV, hepatitis panel sent. ??INR sent for synthetic function. ??CT ab pelvis will be??imaged while she is going for CT chest. ?? Time spent on patient care today is 60 minutes. Orders: glucagon, 1 mg = 1 EA, Subcutaneous, Injection, As Directed, First Dose: 11/11/22 15:22:00 EST, Physician Stop, Routine Dextrose 50% injection, 25 g = 50 mL, IV Push, Injection, As Directed, First Dose: 11/11/22 15:22:00 EST, Physician Stop, Routine insulin aspart Sliding Scale - Medium Dose, Insulin Aspart Sliding Scale See Comments, Subcutaneous, Injection, AC & bedtime, First Dose: 11/11/22 16:30:00 EST, Routine ipratropium-albuterol 0.5 mg-2.5 mg/3 mL inhalation solution, 3 mL, NEB, Soln, every 3 hr, PRN shortness of breath, First Dose: 11/11/22 15:16:00 EST, Physician Stop, Routine ipratropium-albuterol 0.5 mg-2.5 mg/3 mL inhalation solution, 3 mL, NEB, Soln, every 6 hr, First Dose: 11/11/22 16:00:00 EST, Physician Stop, Routine Lactated Ringers Injection 1,000 mL, Total Volume (mL): 1,000, 1,000 mL, Soln- IV, IV, 100 mL/hr, Start Date: 11/11/22 15:16:00 EST, 96 kg, Populate Charting Weight From Order, 2.13, m2 methylPREDNISolone, 60 mg = 1.5 mL, IV, Vial, every 6 hr (hui) for 30 days, First Dose: 11/11/22 18:00:00 EST, Stop Date: 12/11/22 17:59:00 EST, Physician Stop, Routine Basic Metabolic Panel, Blood, Routine, 11/11/22 15:27:00 EST, Daily, for 3 days, Lab Collect Blood Gas Arterial, Blood, Stat, 11/11/22 15:18:00 EST, Once, Lab Collect C-Reactive Protein, Blood, Expedite, 11/11/22 15:26:00 EST, Once, Lab Collect CBC w/ Diff, Blood, Routine, 11/11/22 15:27:00 EST, Daily, for 3 days, Lab Collect CMV Abs IgG/IgM LC, Blood, Stat, 11/11/22 15:32:00 EST, Once, Nurse collect Consult to Dietitian Adult, 11/11/22 15:26:00 EST, Reason for Consult Education Creatinine Urine, Urine, Routine Collect, 11/11/22 15:34:00 EST, Once, Nurse collect, Print Label CT Abdomen w/o Contrast, 11/11/22 15:28:00 EST, Stat, Reason: elevated LFT's, Transport Mode: Stretcher CT Chest w/o Contrast, 11/11/22 15:18:00 EST, Stat, Reason: Hypxoia, Transport Mode: Patient Bed Diet Order, 11/11/22 15:26:00 EST, Consistent Carbohydrates, Na: 2 g sodium Echo Transthoracic TTE, 11/11/22 15:40:00 EST, Routine, Cardiomegaly, Stop date 11/11/22 15:40:00 EST Fall Risk Precautions, 11/11/22 15:26:00 EST Hepatic Function Panel, Blood, Routine, 11/11/22 15:27:00 EST, Daily, for 3 days, Lab Collect Hepatitis A Antibody IgM, Blood, Stat, 11/11/22 15:31:00 EST, Once, Nurse collect Hepatitis B Core Antibody IgM, Blood, Stat, 11/11/22 15:31:00 EST, Once, Nurse collect Hepatitis B Surface Antigen, Blood, Stat, 11/11/22 15:31:00 EST, Once, Nurse collect Hepatitis C Antibody, Blood, Stat, 11/11/22 15:31:00 EST, Once, Nurse collect Intake and Output, 11/11/22 15:26:00 EST, every 12 hr (hui), q shift, 11/11/22 21:00:00 EST Lactic Acid, Blood, Routine, 11/11/22 15:35:00 EST, every morning, Lab Collect Legionella Antigen Urine, Urine, Stat Collect, 11/11/22 15:19:00 EST, Once, Nurse collect, Print Label Magnesium Level, Blood, Routine, 11/11/22 15:27:00 EST, Daily, for 3 days, Lab Collect Magnesium Level, Blood, Add On, 11/11/22 15:31:00 EST, Once, Nurse collect Magnesium Level Urine, Urine, Stat Collect, 11/11/22 15:30:00 EST, Once, Nurse collect, Print Label Mononucleosis Screen, Blood, Routine, 11/11/22 15:33:00 EST, Once, Lab Collect Occupational Therapy Evaluation and Treatment Acute, 11/11/22 15:26:00 EST, Once Patient Condition, 11/11/22 15:26:00 EST, Condition Guarded Phosphorus Level, Blood, Add On, 11/11/22 15:26:00 EST, Once, Lab Collect Physical Therapy Evaluation and Treatment, 11/11/22 15:26:00 EST, Once Procalcitonin, Blood, Routine, 11/11/22 15:34:00 EST, Once, Lab Collect PSO Admit to Inpatient, ICU, Inpatient, 11/11/22 15:15:00 EST, 11/11/22 15:15:00 EST, 11/11/22 15:15:00 EST, 1 midnight or less PT/ INR, Blood, Add On, 11/11/22 15:29:00 EST, Once, Nurse collect PTT, Blood, Routine, 11/11/22 15:27:00 EST, Daily, for 3 days, Lab Collect Resuscitation Status, 11/11/22 15:26:00 EST, Full Code Sodium Level Urine, Urine, Routine Collect, 11/11/22 15:34:00 EST, Once, Nurse collect, Print Label Sputum Culture, Sputum, Stat collect, ST - Stat, 11/11/22 15:19:00 EST, Once, Nurse collect Streptococcus Pneumoniae Antigen Urine, Urine, Stat Collect, 11/11/22 15:20:00 EST, Once, Nurse collect, Print Label Troponin-I, Blood, Stat, 11/11/22 15:27:00 EST, Once, Nurse collect Up ad Milly, 11/11/22 15:26:00 EST, Constant Order, at nurse's discretion Urea Nitrogen Urine, Urine, Routine Collect, 11/11/22 15:34:00 EST, Once, Nurse collect, Print Label Vital Signs, 11/11/22 15:26:00 EST, every 15 min Weight, 11/12/22 5:00:00 EST, every 24 hr Problem List/Past Medical History Ongoing Acquired hypothyroidism [...] As Directed insulin aspart Sliding Scale - Medium Dose, Insulin Aspart Sliding Scale See Comments, Subcutaneous, AC & bedtime ipratropium-albuterol 0.5 mg-2.5 mg/3 mL inhalation solution, 3 mL, NEB, every 6 hr ipratropium-albuterol 0.5 mg-2.5 mg/3 mL inhalation solution, 3 mL, NEB, every 3 hr, PRN Lactated Ringers Injection 1,000 mL, 1000 mL, IV methylPREDNISolone, 60 mg= 1.5 mL, IV, every 6 hr (formerly [facility]) Home Acidophilus Probiotic Blend, 1 cap, Oral, Daily alendronate 70 mg oral tablet, 70 mg= 1 tab, Oral, every week alendronate 70 mg oral tablet, 70 mg= [...] capsule, 100 mg= 1 cap, Oral, BID, 1 refills ipratropium-albuterol 0.5 mg-2.5 mg/3 mL inhalation solution, 3 mL, NEB, every 4 hr, PRN lansoprazole 30 mg oral delayed release capsule, 30 mg= 1 cap, Oral, every morning levothyroxine 137 mcg (0.137 mg) oral tablet, 137 mcg= 1 tab, Oral, With Morning Meal losartan 100 mg oral tablet, 100 mg= [...] bedtime, PRN Allergies Flomax??(Dizziness) sulfa drugs??(Rash, Hallucinations) Social History Alcohol Past Electronic Cigarette/Vaping Electronic Cigarette Use: Never. Employment/School Retired Tobacco Never tobacco user Tobacco Use:. Family History Breast cancer: Mother and Aunt/Uncle. Cancer: Son. Heart: Mother and Father. Immunizations Vaccine Date Status influenza virus vaccine, inactivated 08/02/2022 Recorded Comments : RD done at [facility] Lot: [id number] exp: 05/08/2023 Sanofi SARS-CoV-2 mRNA (tozinameran 12y+) bival 08/02/2022 Recorded Comments : Lot: [id number] Exp: 06/08/23 LD done at [facility] Electronically Signed on 11/11/22 03:53 PM Nii Moon MD Electronically Signed on 11/11/22 07:48 PM Nii Moon MD Discharge summary * Nii Moon MD: PERFORM, MODIFY Event Display: Discharge Summary Authored Date: [id number] YVETTE DRAPER :1945 Age:77 years Sex:Female Visit Date:11/11/2022 Primary Care Physician: Belgica Farr MD Hospital Course This is a 77-year-old female who I am meeting on the first time on this visit. ??She has a severe medical history. ??A sampling includesnon-Hodgkin's lymphoma, ITP with thrombocytopenia,??CAD, cardiomyopathy,??bzo-iakppzr-claxlhuai diabetes [1] . ??She has had 2 valve repairs. ?? She states she has a history of asthma,??mostly undiagnosed but she does get wheezy and has had bronchospasm in the past. ?? The patient was not feeling well a few days before admission. ??Her son checked her oxygen and it was in the 70s in the morning. ??He did go to work and returned and found the patient to be lethargic.?? She came to the emergency room for evaluation. ?? In the emergency room the patient had multiple findings...... ?? She??had an elevated creatinine. She had elevated LFTs with no signs of acute cholecystitis. She had??pneumonia on imaging. She was wheezy with a secondary asthma exacerbation. She had positive cardiac enzymes ?? Most notably she was lethargic??with hypercapnic respiratory failure. ?? The mainstay of treatment was BiPAP therapy for hypercapnic respiratory??failure. ??She was on oxygen. ??She is now on room air. ?? She received steroids and has completed a course for her asthma. ?? She received antibiotics for pneumonia and will complete a course of Augmentin with a probiotic. ?? Her LFTs seem to be related to shock liver, all other exams are negative. ??She did have a gallstone without signs of cholecystitis.?General surgery follow- up will be appropriate. ?? When she was off her??metoprolol she did have a run of SVT. ??This self-limited with her metoprolol.?? Her troponins that she made originally were thought to be secondary to ischemic demand, no chestpain.?? She will need??continued cardiology follow-up as well. ?? Creatinine normalized with IV fluid and continues to normalize. ?? She is now on room air, ambulating, eating and drinking,??and ready for discharge. ?? She will have PCP, general surgery, and cardiology follow-up. Physical Exam Vitals & Measurements T:??36?C ??(Temporal Artery)?? TMIN:??36?C ??(Temporal Artery)?? TMAX:??37.0?C ??(Oral)?? HR:??79??(Peripheral)?? RR:??22?? BP:??171/82?? SpO2:??97%?? Pain Score:??0?? O2 Flow Rate:??1?? O2 Therapy:??Room air?? General:??Soft spoken, oriented x4, baseline.?? HENT:??Normocephalic, clear tympanic membranes, normal hearing, moist oral mucosa, no scleral icterus, no sinus tenderness.?? Lungs: Air movement is quite good.?? Heart: Regular rate and rhythm. Abdomen:??Soft, non-tender, non-distended, normal bowel sounds, no masses.?? Musculoskeletal: No edema. Skin:??Skin is warm, dry and pink, no rashes or lesions. Neurologic: Cranial nerves II to XII are intact. ??Strength, sensation, and reflexes are even and intact in her upper and lower extremities. ??Coordination intact from thumb to finger. Medications Inpatient amoxicillin-clavulanate 500 mg-125 mg oral tablet, 1 tab, Oral, every 12 hr dextromethorphan-guaifenesin 20 mg-200 mg/10 mL oral liquid, 10 mL, Oral, every 4 hr, PRN Dextrose 50% injection, 25 g= 50 mL, IV Push, As Directed glucagon, 1 mg= 1 EA, Subcutaneous, As Directed insulin aspart Sliding Scale - High Dose, Insulin Aspart Sliding Scale See Comment, Subcutaneous, AC & bedtime ipratropium-albuterol 0.5 mg-2.5 mg/3 mL inhalation solution, 3 mL, NEB, every 3 hr, PRN lactobacillus acidophilus oral capsule, 1 cap, Oral, BID Lovenox, 30 mg= 0.3 mL, Subcutaneous, Daily melatonin 3 mg oral tablet, 6 mg= 2 tab, Oral, every night at bedtime, PRN Metoprolol Succinate ER, 25 mg= 1 tab, Oral, BID Metoprolol Tartrate, 5 mg= 5 mL, IV Push, every 5 min, PRN Metoprolol Tartrate, 5 mg= 5 mL, IV Push, every 5 min, PRN predniSONE, 40 mg= 2 tab, Oral, BID Tessalon Perles, 200 mg= 2 cap, Oral, TID, PRN Home Acidophilus Probiotic Blend, 1 cap, Oral, [...] capsule, 100 mg= 1 cap, Oral, BID, 1 refills ipratropium-albuterol 0.5 mg-2.5 mg/3 mL inhalation solution, [...] tab, Oral, every night at bedtime, PRN Procedure/Surgical History ???Arthroplasty Knee (Left) (08/12/2022)???Aortic valve [...] Walker. Tobacco Never tobacco user Tobacco Use:. Discharge Plan 1.??Hypercapnic respiratory failure??J96.92 Resolved.?? She wanted to be DNI, fortunately she was resolved with BiPAP. 2.??Asthma??J45.909 Course of steroid completed. 3.??Thrombocytopenia??D69.6 Stable throughout stay. 4.??Diabetes mellitus type 2??E11.9 Metformin held, now creatinine at 1.4 and trending even lower, should be able to restart tomorrow. 5.??Cardiomyopathy, dilated??I42.0 Troponins thought to be secondary to ischemic demand, significant hypoxia. ??Cardiology follow-up. 6.??Acute kidney injury??N17.9 Resolving, now 1.4 and trending lower. ??Restart losartan at half dose tomorrow until seen by PCP. ?? Patient with diarrhea, mild dehydration on??BMP. ??Offered??fluid??and longer stay. ??Patient will go home and drink water??and good??oral hydration. ??Further, diarrhea self-limited, was getting C. difficile test but there is nothing to test. 7.??Infection??B99.9 A course of Augmentin with a probiotic. 8.??Elevated liver enzymes??R74.8 Thought to be secondary to??shock liver,??extreme dehydration/low flow state. ??No other pathology notable with the exception of gallstones without acute cholecystitis. ??General surgery follow-up. 9.??SVT (supraventricular tachycardia)??I47.1 Resolved back on her beta-jennifer. ??Cardiology follow-up. 10.??Hoarseness??R49.0 The patient says has been going on and off for few months. ??ENT referral. Orders: !-Augmentin 875 mg-125 mg oral tablet, 1 tab, Oral, every 12 hr, # 4 tab, 0 Refill(s), called to pharmacy (Rx) losartan 100 mg oral tablet, 100 mg = 1 tab, Oral, Daily, # 90 tab, 3 Refill(s), Pharmacy: [facility], 114.09, cm, 08/12/22 16:18:00 EDT, Height/Length Dosing, 165, kg, 08/12/22 16:18:00 EDT, Weight Dosing Clostridium Difficile (GeneXpert), Stool, Routine Collect, 11/16/22 8:50:00 EST, Once, Nurse collect, Print Label Discharge Patient, 11/16/22 10:50:00 EST, Home Independently All Diagnoses This Visit Hypercapnic respiratory failure Asthma Thrombocytopenia Diabetes mellitus type 2 Cardiomyopathy, dilated Acute kidney injury Infection Elevated liver enzymes SVT (supraventricular tachycardia) Patient Discharge Condition Stable. Discharge Disposition Home with general surgery, PCP, cardiology follow-up. ?? Time??spent on patient care today is 60 minutes. Patient Education Community-Acquired Pneumonia, Adult, Vlyy-dx-Zdhd Asthma, Adult Medication Reconciliation Changed alendronate (alendronate 70 mg oral tablet)1 tab Oral (given by mouth) every week. typically takes on Thursday. Refills: 0. ?? levothyroxine (levothyroxine 137 mcg (0.137 mg) oral tablet)1 tab Oral (given by mouth) every morning. ?? Unchanged aspirin (Aspirin Enteric Coated)325 Milligrams Oral (given by mouth) 2 times a day. ?? atorvastatin (atorvastatin 10 mg oral tablet)1 tab Oral (given by mouth) every evening for 90 Days.Refills: 3. ?? calcium-vitamin D (calcium (as carbonate)-vitamin D 600 mg-200 intl units oral tablet)1 tab Oral (given by mouth) every day. ?? citalopram (citalopram 20 mg oral tablet)1 tab Oral (given by mouth) every morning. ?? docusate (docusate sodium 100 mg oral capsule)1 Capsules Oral (given by mouth) 2 times a day as needed as needed for constipation. ?? furosemide (furosemide 40 mg oral tablet)1 tab Oral (given by mouth) every morning for 90 Days. Refills: 3. ?? gabapentin (gabapentin 100 mg oral capsule)1 Capsules Oral (given by mouth) 2 times a day for 90 Days. Refills: 1. ?? ipratropium-albuterol (ipratropium-albuterol 0.5 mg-2.5 mg/3 mL inhalation solution)3 Milliliters Nebulized inhalation (inhale using nebulizer) every 4 hours as needed shortness of breath. ?? lactobacillus acidophilus (Acidophilus Probiotic Blend)1 Capsules Oral (given by mouth) every day. ?? lansoprazole (lansoprazole 30 mg oral delayed release capsule)1 Capsules Oral (given by mouth) every morning. ?? losartan (losartan 100 mg oral tablet)1 tab Oral (given by mouth) every day for 90 Days. Refills: 3. ?? metFORMIN (metFORMIN 500 mg oral tablet)1 tab Oral (given by mouth) every evening for 90 Days. Refills: 3. ?? metoprolol (metoprolol tartrate 25 mg oral tablet)1 tab Oral (given by mouth) 2 times a day for 90 Days. Refills: 3. ?? multivitamin (multivitamin adult, oral tablet)1 tab Oral (given by mouth) every day. ?? senna (Senna Lax 8.6 mg oral tablet)2 tab Oral (given by mouth) every night at bedtime as needed asneeded for constipation. ?? ubiquinone (Coenzyme Q10 100 mg oral capsule)1 Capsules Oral (given by mouth) every day. [1]??H & P; Nii Moon MD 11/11/2022 15:41 EST Electronically Signed on 11/16/22 04:36 PM Nii Moon MD XR Chest Single view * Kishore Parra MD: VERIFY, VERIFY Event Display: Report EXAM DESCRIPTION: XR Chest 1 View 11/11/2022 INDICATION: SOB COMPARISON: 08/14/2022 IMPRESSION: Mild bilateral interstitial infiltrates which may reflect interstitial pulmonary edema or interstitial pneumonitis. No focal consolidation Mild stable cardiomegaly with previous median sternotomy and valve replacement. No significant pleural effusion or pneumothorax. JOB #: [id number] Final Signed by: Kishore Parra MD Signed (Electronic Signature): 11/11/2022 1:[address] Abdomen and Pelvis WO contrast * Shawn Guy MD: VERIFY, VERIFY Event Display: Report PROCEDURE INFORMATION: Exam: CT Abdomen And Pelvis Without Contrast Exam date and time: 11/11/2022 8:24 PM Age: 77 years old Clinical indication: Other: Elevated lfts; Additional info: Elevated lft's TECHNIQUE: Imaging protocol: Computed tomography of the abdomen and pelvis without contrast. Radiation optimization: All CT scans at this facility use at least one of these dose optimization techniques: automated exposure control; mA and/or kV adjustment per patient size (includes targeted exams where dose is matched to clinical indication); or iterative reconstruction. COMPARISON: CT ABD/PELVIS W CONTRAST 08/15/2022 1:24 PM FINDINGS: Tubes, catheters and devices: There are sternal wires consistent with previous sternotomy incision. Lungs: Posterior right lower lobe pneumonia with air bronchograms. Minimal atelectasis in the lingula. Mild airspace changes posterior aspect left lower lobe. Minimal vascular congestion in the lower lobes bilaterally. Heart: There is moderate cardiomegaly. Indwelling aortic valve indwelling mitral valve atelectasis infiltrate right middle lobe. Liver: There is a diffuse decrease in hepatic parenchymal density, consistent with fatty infiltration. Gallbladder and bile ducts: Large solitary gallbladder stone. Pancreas: Unremarkable. No ductal dilation. Spleen: Unremarkable. No splenomegaly. Adrenal glands: Normal. No mass. 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 Hypertrophic right kidney noted. Stomach and bowel: Moderate diverticulosis is present in the distal colon. Appendix: No evidence of appendicitis. Intraperitoneal space: Unremarkable. No free air. No significant fluid collection. Vasculature: The aorta demonstrates moderate atherosclerotic calcification. Lymph nodes: Unremarkable. No enlarged lymph nodes. Urinary bladder: Unremarkable as visualized. Reproductive: There has been a hysterectomy. Bones/joints: Ununited L1 transverse process bilaterally. There is mild diffuse osteopenia. The lumbar spine demonstrates mild degenerative changes at multiple levels. Soft tissues: There is a fat-containing umbilical hernia. IMPRESSION: 1. Fatty liver and large gallstone mid body of the gallbladder no biliary dilatation noted. Correlate with LFTs. 2. 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 A chronic changes stable. 3. Posterior right lower lobe pneumonia with air bronchograms minimal atelectasis in the lingula and posterior aspect left lower lobe. THIS DOCUMENT HAS BEEN ELECTRONICALLY SIGNED BY SHAWN GUY MD on 11/11/2022 09:03 PM Final Signed by: Shawn Guy MD Signed (Electronic Signature): 11/11/2022 9:[address] Chest WO contrast * Shawn Guy MD: VERIFY, VERIFY Event Display: Report PROCEDURE INFORMATION: Exam: CT Chest Without Contrast; Diagnostic Exam date and time: 11/11/2022 8:24 PM Age: 77 years old Clinical indication: Other: Hypoxia; Additional info: [place] TECHNIQUE: Imaging protocol: Diagnostic computed tomography of the chest without contrast. Radiation optimization: All CT scans at this facility use at least one of these dose optimization techniques: automated exposure control; mA and/or kV adjustment per patient size (includes targeted exams where dose is matched to clinical indication); or iterative reconstruction. COMPARISON: CT ANGIO CHEST 08/15/2022 1:24 PM FINDINGS: Tubes, catheters and devices: There are sternal wires consistent with previous sternotomy incision. Lungs: Moderate centrilobular emphysematous changes are present. Multifocal airspace changes superolateral aspect right lower lobe superior aspect left lower lobe inferolateral aspect left upper lobe and right upper lobe. Minimal fluid in the right fissure with atelectasis in the right lower lobe and probable developing pneumonia. The 8 mm x 8 mm subsolid nodule left upper lobe. 6 x 6 mm nodule solid nodule left lower lobe. Pleural spaces: Air bronchograms right lower lobe with pneumonia and small right parapneumonic effusion. Pleural spaces: Unremarkable. No pneumothorax. No pleural effusion. Heart: Unremarkable. No cardiomegaly. No pericardial effusion. Lymph nodes: Unremarkable. No enlarged lymph nodes. Vasculature: The aorta demonstrates moderate atherosclerotic calcification. 3.8 x 3.9 cm ascending aorta. Mid aortic arch 3 cm. Adrenal glands: Incidental large solitary gallstone. There is diffuse bilateral nonspecific adrenal enlargement, most likely related to acute illness. Kidneys and ureters: . Atretic upper pole left kidney. Bones/joints: There is moderate diffuse osteopenia. The thoracic spine demonstrates mild degenerative changes at multiple levels. Soft tissues: Unremarkable. IMPRESSION: 1. Multifocal atypical pneumonia noted in the upper and lower lobes with areas of atelectasis right middle lobe and multifocal consolidative nearly consolidative pneumonia right lower lobe with small small right parapneumonic effusion. 2. 8 mm x 8 mm subsolid nodule left upper lobe. 6 x 6 mm subsolid nodule left lower lobe. Recommend CT Chest at 3-6 months to confirm persistence of the nodule. If unchanged and solid component remains < 6 mm, annual CT Chest should be performed for 5 years. (Reference: Sarika) 3. Small right parapneumonic effusion. 4. Large solitary gallstone present. COMMENTS: In the absence of a history or active diagnosis of lung cancer, it is recommended that this patient with emphysema be evaluated for enrollment in a low dose CT lung cancer screening program. REFERENCES: Sarika H, et al. Guidelines for Management of Incidental Pulmonary Nodules Detected on CT Images: From the Fleischner Society 2017. Radiology. 2017;284(1):228-243. THIS DOCUMENT HAS BEEN ELECTRONICALLY SIGNED BY SHAWN GUY MD on 11/11/2022 09:10 PM Final Signed by: Shawn Guy MD Signed (Electronic Signature): 11/11/2022 9:10 pm Patient Care team information Personnel Name: Belgica Farr MD Address: Address: [address]
--- OUTSIDE RECORDS SUMMARY | 2024-04-25 04:10 | XMS_ITS | Continuity of Care Document ---
Author Name Unknown Organization [facility] Ambulatory Clinics Address [address] [place] [address] Care Team Providers Care Medical Radiation Dosimetrist Name Role Phone Mally Vazquez APRN Primary Care Physician [phone] Encounter [facility] NBR [id number] Date(s): 03/24/23 - 03/24/23 [facility] Ambulatory [facility] [address] [place] [address]- Discharge Disposition: Home or Self Care Attending [...] 08/02/22 Recorded 1Result Comment: RD done at [facility] Lot: [id number] exp: 05/08/2023 [employer]i 2Result Comment: Lot: [id number] Exp: 06/08/23 LD done at [facility] Medications Acidophilus Probiotic Blend 1 cap, Oral, Daily, 0 Refill(s) Start Date: 08/11/22 Status: Ordered Albuterol (Eqv-Proventil HFA) 90 mcg/inh inhalation aerosol 1 puffs, Inhale, every 4 hr, PRN as needed for wheezing, Do not exceed 12 inhalations in a 24-hour period., # 1 EA, 0 Refill(s), Pharmacy: [id number], 170, cm, 11/11/22 12:19:00 EST, [...] taking., # 12 tab, 1 Refill(s), Pharmacy: [facility]... Start Date: 02/03/23 Stop Date: 07/21/23 Status: Ordered aspirin 81 mg oral delayed release tablet 81 mg = 1 tab, Oral, Daily, # 30 tab, 0 Refill(s) Start Date: 01/05/23 Status: Ordered atorvastatin 10 mg oral tablet 10 mg = 1 tab, Oral, every evening, # 90 tab, 3 Refill(s), Pharmacy: [facility],114.09, cm, 08/12/22 16:18:00 EDT, Height/Length [...] 03/24/2023, # 90 tab, 0 Refill(s), Pharmacy: [id number], 170, cm, 11/11/22 12:19:00 EST, Height/Length Dosing, 96, kg, 11/11/22 12:19:00 EST, Weight Dosing Start Date: 03/09/23 Status: Ordered Coenzyme Q10 100 mg oral capsule 100 mg = 1 cap, Oral, Daily Start Date: 08/11/22 Status: Ordered furosemide 40 mg oral tablet 40 mg = 1 tab, Oral, every morning, # 90 tab, 3 Refill(s), Pharmacy: [facility],114.09, cm, 08/12/22 16:18:00 EDT, Height/Length [...] Daily, # 90 tab, 3 Refill(s), Pharmacy: [facility], 114.09, cm, 08/12/22 16:18:00 EDT, Height/Length Dosing, 165, kg, 08/12/22 16:18:00 EDT, Weight Dosing Start Date: 10/24/22 Stop Date: 10/19/23 Status: Ordered metFORMIN 500 mg oral tablet 500 mg = 1 tab, Oral, every evening, # 90 tab, 3 Refill(s), Pharmacy: [facility], 114.09, cm, 08/12/22 16:18:00 EDT, Height/Length Dosing, 165, kg, 08/12/22 16:18:00 EDT, Weight Dosing Start Date: 10/24/22 Stop Date: 10/19/23 Status: Ordered metoprolol tartrate 25 mg oral tablet 25 mg = 1 tab, Oral, BID, # 180 tab, 3 Refill(s), Pharmacy: [facility], 114.09, cm, 08/12/22 16:18:00 EDT, [...] Range]: 1 Peripheral Pulse Rate [60-100 bpm] 59 bp m *LOW* (03/24/23 11:15 AM) Blood Pressure [90-140/60-90 mmHg] 130/8 0mmHg (03/24/23 11:15 AM) Weight 97.1 kg (03/24/23 11:15 AM) Weight Measured (lbs) 214.069 lb (03/24/23 11:15 AM) Social History Social History Type Response Tobacco Never tobacco user T obacco Use:. 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 Katlyn Hallman, DO 08/12/22 Non Biological Knee L Device Identifier Serial Number Lot or Batch Number Manufacturing Date Expiration Date Distinct Identification Code MRI Safety Implantable Status Assigning Authority Unknown NA [id number] Unknown 08/07/24 Unknown Unknown Active Unknown Unknown N/A [id number] Unknown 06/10/32 Unknown Unknown Active Unknown Unknown NA [id number] Unknown 04/01/27 Unknown Unknown Active Unknown Unknown N/A [id number] Unknown 12/07/31 Unknown Unknown Active Unknown Unknown N/A [id number] Unknown 12/15/26 Unknown Unknown Active Unknown Patient Care team information Care Team Personnel Name: Sanaz Fang APRN, Position: Physician Member Role: Nurse Practitioner Address: Address: [address] [place] [address] Name: Anabel Hallman APRN Position: Physician Member Role: Nurse Practitioner Address: Address: [address] [place] [address] Name: Mally Vazquez APRN Position: Physician Member Role: Primary Care Physician Address: Address: [address] [place] [address] [place] Care Team Related Persons Name: LAURA LEON Address: Home
--- OUTSIDE RECORDS SUMMARY | 2024-04-25 04:10 | XMS_ITS | Continuity of Care Document ---
Author Name Unknown Organization [facility] Ambulatory Clinics Address [address] [place] [address] Care Team Providers Care Leguillon Debeader Name Role Phone Mally Vazquez APRN Primary Care Physician Encounter [facility] NBR [id number] Date(s): 07/22/23 - 07/22/23 [facility] Ambulatory Clinics [address] [place] [address] [place] Encounter Diagnosis Diabetic polyneuropathy associated with type 2 diabetes mellitus(Discharge Diagnosis) - 07/22/23 Back pain(Discharge Diagnosis) - 07/22/23 Discharge Disposition: Home or Self Care Attending Physician: Ariana Lima MD Allergies, Adverse Reactions, Alerts Substance Reaction Severity Status narcotic analgesics Unknown Active sulfa drugs Rash Hallucinations Unknown Active Flomax Dizziness Unknown Active Assessment and Plan Future Appointments Functional Status 07/22/23 Recent Travel History No recent travel Other exposure to Infectious Disease Non e Immunizations Given and Recorded Vaccine Date Status Refusal Reason influenza virus vaccine, inactivated 1 08/02/22 Re corded SARS-CoV-2 mRNA (tolaminn 12y+) bival 2 08/02/22 Recorded 1Result Comment: RD done at [place] Lot: [id number] exp: 05/08/2023 Sanofi 2Result Comment: Lot: [id number] Exp: 06/08/23 LD done at [place] Medications Albuterol (Eqv-Proventil HFA) 90 mcg/inh inhalation aerosol 1 puffs, Inhale, every 4 hr, PRN as needed for wheezing, Do not exceed 12 inhalations in a 24-hour period., # 1 EA, 0 Refill(s), Pharmacy: [facility] #[id number], 170, cm, 11/11/22 12:19:00 EST, [...] taking., # 12 tab, 1 Refill(s), Pharmacy: [facility], 170, cm, 11/11/22 12:19:00 EST, [...] evening, # 90 tab, 3 Refill(s), Pharmacy: [facility],114.09, cm, 08/12/22 16:18:00 EDT, Height/Length [...] morning, # 90 tab, 3 Refill(s), Pharmacy: [facility],114.09, cm, 08/12/22 16:18:00 EDT, Height/Length Dosing, 165, kg, 08/12/22 16:18:00 EDT, Weight Dosing Start Date: 10/24/22 Stop Date: 10/19/23 Status: Ordered gabapentin 100 mg oral capsule 100 mg = 1 cap, Oral, Daily, # 90 cap, 0 Refill(s), Pharmacy: [facility], 170, cm, 11/11/22 12:19:00 EST, Height/Length Dosing, 96, kg, 11/11/22 12:19:00 EST, Weight Dosing Start Date: 06/05/23 Stop Date: 09/03/23 Status: Ordered levothyroxine 137 mcg (0.137 mg) oral tablet See Instructions, TAKE 1 TABLET DAILY IN THE MORNING ON AN EMPTY STOMACH, # 90 tab, 3 Refill(s), Pharmacy: [facility], 170, cm, 11/11/22 12:19:00 EST, Height/Length Dosing, 96, kg,11/11/22 12:19:00 EST, Weight Dosing Start Date: 04/14/23 Status: Ordered losartan 100 mg oral tablet 100 mg = 1 tab, Oral, Daily, # 90 tab, 3 Refill(s), Pharmacy: [facility], 114.09, cm, 08/12/22 16:18:00 EDT, Height/Length Dosing, 165, kg, 08/12/22 16:18:00 EDT, Weight Dosing Start Date: 10/24/22 Stop Date: 10/19/23 Status: Ordered metFORMIN 500 mg oral tablet 500 mg = 1 tab, Oral, every evening, # 90 tab, 3 Refill(s), Pharmacy: [facility], 114.09, cm, 08/12/22 16:18:00 EDT, Height/Length Dosing, 165, kg, 08/12/22 16:18:00 EDT, Weight Dosing Start Date: 10/24/22 Stop Date: 10/19/23 Status: Ordered metoprolol tartrate 25 mg oral tablet 25 mg = 1 tab, Oral, BID, # 180 tab, 3 Refill(s), Pharmacy: [facility], 114.09, cm, 08/12/22 16:18:00 EDT, Height/Length Dosing, 165, kg, 08/12/22 16:18:00 EDT, Weight Dosing Start Date: 10/24/22 Stop Date: 10/19/23 Status: Ordered multivitamin adult, oral tablet 1 tab, Oral, Daily Start Date: 08/11/22 Status: Ordered [employer] oral capsule 8 EA, TAKE 1 CAPSULE [...] Temperature Temporal Artery [36-38 Deg C ] 36.3 Deg C (07/22/23 3:07 PM) Apical Heart Rate [60-100 bpm] 77 bpm (07/22/23 3:07 PM) Blood Pressure [90-140/60-90 mmHg] 110/6 0mmHg (07/22/23 3:07 PM) Weight 99.2 kg (07/22/23 3:07 PM) Weight Measured (lbs) 218.698 lb (07/22/23 3:07 PM) [place] Body Weight Calculated 56.991 kg (07/22/23 3:07 PM) Height 165.09 cm (07/22/23 3:07 PM) Height/Length Measured (inches) 65 inch (07/22/23 3:07 PM) BSA Measured 2.13 m2 (07/22/23 3:07 PM) Body Mass Index 36.4 kg/m2 (07/22/23 3:07 PM) Social History Social History Type Response Tobacco Never tobacco user T obacco Use:. 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 Katlyn Hallman, 08/12/22 Non Biological Knee L Device Identifier Serial Number Lot or Batch Number Manufacturing Date Expiration Date Distinct Identification Code MRI Safety Implantable Status Assigning Authority Unknown NA [id number] Unknown 08/07/24 Unknown Unknown Active Unknown Unknown N/A [id number] 2 Unknown 06/10/32 Unknown Unknown Active Unknown Unknown NA [id number] Unknown 04/01/27 Unknown Unknown Active Unknown Unknown N/A [id number] 2 Unknown 12/07/31 Unknown Unknown Active Unknown Unknown N/A [id number] 2 Unknown 12/15/26 Unknown Unknown Active Unknown Physician Outpatient Note * Ariana Lima MD: PERFORM Event Display: Office Clinic Note Physician Authored Date: [id number] YVETTE DRAPER :1945 Age:78 years Sex:Female Visit Date:07/22/2023 Primary Care Physician: Mally Vazquez APRN Chief Complaint type 2 diabetes, foot exam History of Present Illness Presents for diabetic foot exam. She is under the care of this office for a comprehensive treatment plan for her type 2 diabetes mellitus with peripheral neuropathy. Takes metformin for her diabetes, A1c 5.8% in 06/2023. Unrelated, she is on Fosamax for osteoporosis and does have decreased kidney function, but GFR >30, still able to take Fosamax. She has also been having back/left flank pain over the past few weeks. Takes Tylenol once in a while. Review of Systems as per HPI Physical Exam Vitals & Measurements T:??36.3?C ??(Temporal Artery)?? HR:??77??(Apical)?? BP:??110/60?? SpO2:??97%?? HT:??165.09??cm?? WT:??99.2??kg?? BMI:??36.4?? BSA:??2.13?? Gen: well-appearing, in no acute distress CV: regular rate and rhythm, no murmurs Resp: normal respiratory effort, lungs clear to auscultation bilaterally MSK: mild tenderness of left mid/low back, without reproducible pain with active ROM of lumbar spine DM foot exam:??2+ DP and PT pulses bilaterally, warm toes. Extensive varicose veins L>R with mild stasis dermatitis of L>R lower legs,??1+ left??and trace right??ankle/foot edema. Mild webspacetinea and onychomycosis bilaterally. Right foot with 2nd toe hammertoe and lateral 5th toe preulcerative callus, elongated 2nd/3rd toenails.??6/6 monofilament sites sensed. Left foot with 2nd toe hammertoe and??2nd and 3rd??MT base??preulcerative callus, elongated 2nd/3rdtoenails. 6/6 monofilament sites sensed. Psych/MSE: attentive,??normal mood, appropriate affect Assessment/Plan 1.??Diabetic polyneuropathy associated with type 2 diabetes mellitus??E11.42 diabetic foot exam performed, pre-ulcerative callus of both feet noted, with varicose veins, edema,stasis dermatitis, and hammertoe deformities note to be sent to [facility] to update her diabetic footwear A1c well-controlled on current lifestyle and metformin appreciate follow-up with podiatry 2.??Back pain??M54.9 left low back above waistline, likely muscular, encouraged Tylenol, topical pain creams, massage, heat - if worsening, seek re-evaluation Problem List/Past Medical History Ongoing Acquired hypothyroidism [...] adult, oral tablet, 1 tab, Oral, Daily [employer] oral capsule Allergies Flomax??(Dizziness) narcotic [...] Recorded Comments : RD done at [place] Lot: [id number] exp: 05/08/2023 Sanofi SARS-CoV-2 mRNA (tozinamandrews 12y+) bival 08/02/2022 Recorded Comments : Lot: [id number] Exp: 06/08/23 LD done at [place] Electronically Signed on 07/22/23 04:28 PM Ariana Lima MD Patient Care team information Care Team Personnel Name: Sanaz Fang APRN, Position: Physician Member Role: Nurse Practitioner Address: Address: [address] [place] [address] Name: Anabel Hallman APRN Position: Physician Member Role: Nurse Practitioner Address: Address: [address] [place] [address] Name: Mally Vazquez APRN Position: Physician Member Role: Primary Care Physician Address: Address: [address] [place] [address] Care Team Related Persons Name: LAURA LEON Address: Home
--- OUTSIDE RECORDS SUMMARY | 2024-04-25 04:11 | XMS_ITS | Continuity of Care Document ---
Author Name Unknown Organization [facility] Address [address] [place] [address] Care Team Providers Care Infrastructure Software Engineer Name Role Phone Malyl Vazquez APRN Primary Care Physician Encounter [facility] FIN NBR [id number] Date(s): 09/07/23 - 09/07/[address] [phone] [place] Discharge Disposition: Home or Self Care Attending Physician: REGGIE MOSS Admitting Physician: REGGIE MOSS Referring Physician: REGGIE MOSS Allergies, Adverse Reactions, Alerts Substance Reaction Severity [...] 08/02/22 Recorded 1Result Comment: RD done at [place] Lot: [id number] exp: 05/08/2023 Sanofi 2Result Comment: Lot: [id number] Exp: 06/08/23 LD done at [place] Medications Albuterol (Eqv-Proventil HFA) 90 mcg/inh inhalation aerosol 1 puffs, Inhale, every 4 hr, PRN as needed for wheezing, Do not exceed 12 inhalations in a 24-hour period., # 1 EA, 0 Refill(s), Pharmacy: [facility] #[id number], 170, cm, 11/11/22 12:19:00 EST, [...] taking., # 12 tab, 1 Refill(s), Pharmacy: [facility], 170, cm, 11/11/22 12:19:00 EST, [...] evening, # 90 tab, 3 Refill(s), Pharmacy: [facility],114.09, cm, 08/12/22 16:18:00 EDT, Height/Length [...] morning, # 90 tab, 3 Refill(s), Pharmacy: [facility],114.09, cm, 08/12/22 16:18:00 EDT, Height/Length Dosing, 165, kg, 08/12/22 16:18:00 EDT, Weight Dosing Start Date: 10/24/22 Stop Date: 10/19/23 Status: Ordered gabapentin 100 mg oral capsule 100 mg = 1 cap, Oral, Daily, # 90 cap, 0 Refill(s), Pharmacy: [facility], 170, cm, 11/11/22 12:19:00 EST, Height/Length Dosing, 96, kg, 11/11/22 12:19:00 EST, Weight Dosing Start Date: 06/05/23 Stop Date: 09/03/23 Status: Ordered Jardiance 10 mg oral tablet 10 mg = 1 tab, Oral, every morning, # 30 tab, 0 Refill(s), Pharmacy: [facility] #[id number], 170, cm, 11/11/22 12:19:00 EST, Height/Length Dosing, 96, kg, 11/11/22 12:19:00 EST, Weight Dosing Start Date: 08/28/23 Status: Ordered levothyroxine 137 mcg (0.137 mg) oral tablet See Instructions, TAKE 1 TABLET DAILY IN THE MORNING ON AN EMPTY STOMACH, # 90 tab, 3 Refill(s), Pharmacy: [facility], 170, cm, 11/11/22 12:19:00 EST, Height/Length Dosing, 96, kg,11/11/22 12:19:00 EST, Weight Dosing Start Date: 04/14/23 Status: Ordered losartan 100 mg oral tablet 100 mg = 1 tab, Oral, Daily, # 90 tab, 3 Refill(s), Pharmacy: [facility], 114.09, cm, 08/12/22 16:18:00 EDT, Height/Length Dosing, 165, kg, 08/12/22 16:18:00 EDT, Weight Dosing Start Date: 10/24/22 Stop Date: 10/19/23 Status: Ordered metoprolol tartrate 25 mg oral tablet 25 mg = 1 tab, Oral, BID, # 180 tab, 3 Refill(s), Pharmacy: [facility], 170, cm,11/11/22 12:19:00 EST, Height/Length Dosing, 96, kg, 11/11/22 12:19:00 EST, Weight Dosing Start Date: 08/25/23 Stop Date: 08/19/24 Status: Ordered multivitamin adult, oral tablet 1 tab, Oral, Daily Start Date: 08/11/22 Status: Ordered [employer] oral capsule 8 EA, TAKE 1 CAPSULE [...] Exam Date Time Procedure Performing Provider Status 09/07/23 4:27 PM US Kidney Bladder Maillet, [place]; Au th (Verified) Notes: (US Kidney Bladder) Reason For Exam: stage 3 kidney disease US Kidney Bladder EXAM DESCRIPTION: US Kidney Bladder 09/07/2023 INDICATION: STAGE 3 KIDNEY DISEASE TECHNIQUE: Technique: Grayscale and color doppler ultrasound examination of the kidney and bladder region. COMPARISON: None FINDINGS: The left kidney measures 4 cm x 9.3 cm x 4 cm. The right kidney measures 5 cm x 10.6 cm x 4.7 cm. No focal renal mass, hydronephrosis or perinephric fluid collection on either side. Survey of the bladder reveals no intraluminal filling defect. Bilateral ureteral jets were seen. Prevoid bladder volume was 253 mL. Postvoid bladder volume was 1.2 mL. IMPRESSION: Renal sizes as described above No focal renal mass, hydronephrosis or perinephric fluid collection on either side. JOB #: [id number] Final Signed by: Kishore Parra MD Signed (Electronic Signature): 09/07/2023 4:47 pm Social History Social History Type Response Tobacco Never tobacco user T obacco Use:. 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 Katlyn Watershur, DO 08/12/22 Non Biological Knee L Device Identifier Serial Number Lot or Batch Number Manufacturing Date Expiration Date Distinct Identification Code MRI Safety Implantable Status Assigning Authority Unknown NA [id number] Unknown 08/07/24 Unknown Unknown Active Unknown Unknown N/A [id number] 2 Unknown 06/10/32 Unknown Unknown Active Unknown Unknown NA [id number] 1 Unknown 04/01/27 Unknown Unknown Active Unknown Unknown N/A [id number] 2 Unknown 12/07/31 Unknown Unknown Active Unknown Unknown N/A [id number] 2 Unknown 12/15/26 Unknown Unknown Active Unknown Patient Care team information Care Team Personnel Name: Sanaz Fang APRN, Position: Physician Member Role: Nurse Practitioner Address: Address: [address] [place] [address] Name: Anabel Hallman APRN Position: Physician Member Role: Nurse Practitioner Address: Address: [address] [place] [address] Name: Mally Vazquez APRN Position: Physician Member Role: Primary Care Physician Address: Address: [address] [place] [address] [place] [address] Care Team Related Persons Name: LAURA LEON
--- OUTSIDE RECORDS SUMMARY | 2024-04-25 04:11 | XMS_ITS | Continuity of Care Document ---
Author Name Unknown Organization [facility] Address [address] [place] [address] Care Team Providers Care Preparator Name Role Phone Taylor DEWEYNMally Ronda Primary Care Physician [phone] Encounter [facility] NBR [id number] Date(s): 08/15/22 - 11/26/22 [facility] [address] [place] [address]- Encounter Diagnosis Encounter for orthopedic aftercare following scoliosis surgery(Discharge Diagnosis) - 09/18/22 Presence of left artificial knee joint(Final) - Discharge Disposition: Home Attending Physician: Govind Shah Admitting Physician: Katlyn Peoples DO Referring Physician: Katlyn Peoples DO Allergies, Adverse Reactions, Alerts Substance Reaction Severity Status sulfa drugs Rash Hallucinations Unknown Active Flomax Dizziness Unknown Active Assessment and Plan Future Appointments Functional Status 09/24/22 Prior ADL Status Independent Prior Mobility Status Independent Prior Instrumental ADL Level Independent Prior Cognitive-Communication Skills Ind ependent 09/18/22 Lives In Single level home Lives With Other: Son currently staying with her; 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 Rehab Caregiv er for pet, Community mobility, 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, 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, Health and wellness, Home management, Laundry, Leisure/Play/Hobbies, Manage Medications, Meal preparation, Personal ADL, Retired, Shopping, Social participation, Volunteer, Yard work Location Bed 1st floor Location Main Bathroom 1st floor Location Kitchen 1st floor Location Laundry 1st floor Prior Accessibility Options Bathroom mod ifications Immunizations Given and Recorded Vaccine Date Status Refusal Reason influenza virus vaccine, inactivated 1 08/02/22 Re corded SARS-CoV-2 mRNA (tozinamlucilan 12y+) bival 2 08/02/22 Recorded 1Result Comment: RD done at [place] Lot: [id number] exp: 05/08/2023 Sanofi 2Result Comment: Lot: [id number] Exp: 06/08/23 LD done at [place] Medications Acidophilus Probiotic Blend 1 cap, Oral, Daily, 0 Refill(s) Start Date: 08/11/22 Status: Ordered Albuterol (Eqv-Proventil HFA) 90 mcg/inh inhalation aerosol 1 puffs, Inhale, every 4 hr, PRN as needed for wheezing, Do not exceed 12 inhalations in a 24-hour period., # 1 EA, 0 Refill(s), Pharmacy: [id number], 170, cm, 11/11/22 12:19:00 EST, Height/Length Dosing, 96, kg, 11/11/22 12:19:00 EST, Weight... Start Date: 11/25/22 Status: Ordered alendronate 70 mg oral tablet 70 mg = 1 tab, Oral, every week, typically takes on Thursday, # 12 tab, 0 Refill(s), Pharmacy: [facility], 114.09, cm, 08/12/22 16:18:00 EDT, Height/Length Dosing, 165, kg, 08/12/22 16:18:00 EDT, Weight Dosing Start Date: 11/06/22 Status: Ordered Aspirin Enteric Coated 325 mg = 1 tab, Oral, BID, 0 Refill(s) Start Date: 08/21/22 Status: Ordered atorvastatin 10 mg oral tablet 10 mg = 1 tab, Oral, every evening, # 90 tab, 3 Refill(s), Pharmacy: [facility],114.09, cm, 08/12/22 16:18:00 EDT, Height/Length [...] morning, # 90 tab, 3 Refill(s), Pharmacy: [facility],114.09, cm, 08/12/22 16:18:00 EDT, Height/Length Dosing, 165, kg, 08/12/22 16:18:00 EDT, Weight Dosing Start Date: 10/24/22 Stop Date: 10/19/23 Status: Ordered gabapentin 100 mg oral capsule 100 mg = 1 cap, Oral, BID, # 180 cap, 1 Refill(s), Pharmacy: [facility], 114.09,cm, 08/12/22 16:18:00 EDT, Height/Length [...] Daily, # 90 tab, 3 Refill(s), Pharmacy: [facility], 114.09, cm, 08/12/22 16:18:00 EDT, Height/Length Dosing, 165, kg, 08/12/22 16:18:00 EDT, Weight Dosing Start Date: 10/24/22 Stop Date: 10/19/23 Status: Ordered metFORMIN 500 mg oral tablet 500 mg = 1 tab, Oral, every evening, # 90 tab, 3 Refill(s), Pharmacy: [facility], 114.09, cm, 08/12/22 16:18:00 EDT, Height/Length Dosing, 165, kg, 08/12/22 16:18:00 EDT, Weight Dosing Start Date: 10/24/22 Stop Date: 10/19/23 Status: Ordered metoprolol tartrate 25 mg oral tablet 25 mg = 1 tab, Oral, BID, # 180 tab, 3 Refill(s), Pharmacy: [facility], 114.09, cm, 08/12/22 16:18:00 EDT, Height/Length Dosing, 165, kg, 08/12/22 16:18:00 EDT, Weight Dosing Start Date: 10/24/22 Stop Date: 10/19/23 Status: Ordered multivitamin adult, oral tablet 1 tab, Oral, Daily Start Date: 08/11/22 Status: Ordered predniSONE 20 mg oral tablet 20 mg = 1 tab, Oral, Daily, with food or milk, # 5 tab, 0 Refill(s), Pharmacy: [facility] #[id number],170, cm, 11/11/22 12:19:00 EST, Height/Length [...] Safety Implantable Status Assigning Authority Unknown NA [id number] Unknown 08/07/24 Unknown Unknown Active Unknown Unknown N/A [id number] 2 Unknown 06/10/32 Unknown Unknown Active Unknown Unknown NA [id number] 1 Unknown 04/01/27 Unknown Unknown Active Unknown Unknown N/A [id number] 2 Unknown 12/07/31 Unknown Unknown Active Unknown Unknown N/A [id number] 2 Unknown 12/15/26 Unknown Unknown Active Unknown Physical therapy Note * Kitty Pérez: PERFORM Event Display: Physical Therapy Rehab Note Authored Date: [id number] * Kitty Pérez: PERFORM Event Display: Physical Therapy Rehab Note Authored Date: [id number] * Julianne Cortez: PERFORM Event Display: Physical Therapy Rehab Note Authored Date: [id number] Progress note * Katlyn Peoples DO: PERFORM Event Display: Progress Note - Physician Authored Date: [id number] YVETTE DRAPER :1945 Age:77 years Sex:Female Registration Date:08/15/2022 Primary Care Physician: Belgica Farr MD Subjective Comfortable. No SOB. No CP. Objective Physical Exam VSS. L TKA wound CDi. No calf tenderness. No pain with passive calf stretch. NV intact Assessment/Plan S/P L TKA with mental status change resolving. ECF DC planning. Electronically Signed on 08/20/22 06:26 AM Katlyn Peoples, DO * Katlyn Peoples, DO: PERFORM Event Display: Progress Note - Physician Authored Date: [id number] YVETTE DRAPER :1945 Age:77 years Sex:Female Registration Date:08/15/2022 Primary Care Physician: Belgica Farr MD Electronically Signed on 08/20/22 06:26 AM Katlyn Peoples, DO * Katlyn Peoples, DO: PERFORM Event Display: Progress Note - Physician Authored Date: [id number] YVETTE DRAPER :1945 Age:77 years Sex:Female Registration Date:08/15/2022 Primary Care Physician: Belgica Farr MD Subjective Patient seen at bedside this morning.?? She is mentally cleared.?? Medicine has signed off.?? She is reasonably comfortable??this morning. Objective Physical Exam Vital stable. ??Roldan in place.?? The wound??clean and dry. ??No calf tenderness.?? No pain with passive??stretch??of the ankle. Assessment/Plan Mobilize in physical therapy. ??Discontinue Roldan catheter.?? She will likely need acute rehab.?? Discharge planning??with social services coordinator. Electronically Signed on 08/19/22 07:06 AM Katlyn Poeples, DO Patient Care team information Personnel Name: Mally Vazquez APRN Address: Address: [address] [place] [phone]
--- OUTSIDE RECORDS SUMMARY | 2024-04-25 04:11 | XMS_ITS | Continuity of Care Document ---
Author Name Unknown Organization [facility] Ambulatory Clinics Address [address] [place] [address] Care Team Providers Care Infertility Medical Assistant Name Role Phone Mally Vazquez APRN Primary Care Physician Encounter [facility] NBR [id number] Date(s): 11/25/22 - 11/25/22 [facility] Amb[facility] [address] [place] [address]- Discharge Disposition: Home or Self Care Attending Physician: Mally Vazquez APRN Allergies, Adverse Reactions, Alerts Substance Reaction Severity Status sulfa drugs Rash Hallucinations Unknown Active Flomax Dizziness Unknown Active Assessment and Plan Future Appointments Functional Status 11/25/22 Other exposure to Infectious Disease Non e Immunizations Given and Recorded Vaccine Date Status Refusal Reason influenza virus vaccine, inactivated 1 08/02/22 Re corded SARS-CoV-2 mRNA (tolaminn 12y+) bival 2 08/02/22 Recorded 1Result Comment: RD done at [place] Lot: [id number] exp: 05/08/2023 Sanofi 2Result Comment: Lot: [id number] Exp: 06/08/23 LD done at [facility] Medications Acidophilus Probiotic Blend 1 cap, Oral, Daily, 0 Refill(s) Start Date: 08/11/22 Status: Ordered Albuterol (Eqv-Proventil HFA) 90 mcg/inh inhalation aerosol 1 puffs, Inhale, every 4 hr, PRN as needed for wheezing, Do not exceed 12 inhalations in a 24-hour period., # 1 EA, 0 Refill(s), Pharmacy: [facility] #[id number], 170, cm, 11/11/22 12:19:00 EST, Height/Length Dosing, 96, kg, 11/11/22 12:19:00 EST, Weight... Start Date: 11/25/22 Status: Ordered alendronate 70 mg oral tablet 70 mg = 1 tab, Oral, every week, typically takes on Thursday, # 12 tab, 0 Refill(s), Pharmacy: [facility], 114.09, cm, 08/12/22 16:18:00 EDT, Height/Length Dosing, 165, kg, 08/12/22 16:18:00 EDT, Weight Dosing Start Date: 11/06/22 Status: Ordered Aspirin Enteric Coated 325 mg = 1 tab, Oral, BID, 0 Refill(s) Start Date: 08/21/22 Status: Ordered atorvastatin 10 mg oral tablet 10 mg = 1 tab, Oral, every evening, # 90 tab, 3 Refill(s), Pharmacy: [facility],114.09, cm, 08/12/22 16:18:00 EDT, Height/Length [...] morning, # 90 tab, 3 Refill(s), Pharmacy: [facility],114.09, cm, 08/12/22 16:18:00 EDT, Height/Length Dosing, 165, kg, 08/12/22 16:18:00 EDT, Weight Dosing Start Date: 10/24/22 Stop Date: 10/19/23 Status: Ordered gabapentin 100 mg oral capsule 100 mg = 1 cap, Oral, BID, # 180 cap, 1 Refill(s), Pharmacy: [facility], 114.09,cm, 08/12/22 16:18:00 EDT, Height/Length [...] Daily, # 90 tab, 3 Refill(s), Pharmacy: [facility], 114.09, cm, 08/12/22 16:18:00 EDT, Height/Length Dosing, 165, kg, 08/12/22 16:18:00 EDT, Weight Dosing Start Date: 10/24/22 Stop Date: 10/19/23 Status: Ordered metFORMIN 500 mg oral tablet 500 mg = 1 tab, Oral, every evening, # 90 tab, 3 Refill(s), Pharmacy: [facility], 114.09, cm, 08/12/22 16:18:00 EDT, Height/Length Dosing, 165, kg, 08/12/22 16:18:00 EDT, Weight Dosing Start Date: 10/24/22 Stop Date: 10/19/23 Status: Ordered metoprolol tartrate 25 mg oral tablet 25 mg = 1 tab, Oral, BID, # 180 tab, 3 Refill(s), Pharmacy: [facility], 114.09, cm, 08/12/22 16:18:00 EDT, Height/Length Dosing, 165, kg, 08/12/22 16:18:00 EDT, Weight Dosing Start Date: 10/24/22 Stop Date: 10/19/23 Status: Ordered multivitamin adult, oral tablet 1 tab, Oral, Daily Start Date: 08/11/22 Status: Ordered predniSONE 20 mg oral tablet 20 mg = 1 tab, Oral, Daily, with food or milk, # 5 tab, 0 Refill(s), Pharmacy: [facility] #[id number],170, cm, 11/11/22 12:19:00 EST, Height/Length [...] Range]: 1 Peripheral Pulse Rate [60-100 bpm] 91 bp m (11/25/22 10:00 AM) Blood Pressure [90-140/60-90 mmHg] 120/6 0mmHg (11/25/22 10:00 AM) Social History Social History Type Response Tobacco Never tobacco user T obacco Use:. 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 Katlyn Peoples, 08/12/22 Non Biological Knee L Device Identifier Serial Number Lot or Batch Number Manufacturing Date Expiration Date Distinct Identification Code MRI Safety Implantable Status Assigning Authority Unknown NA [id number] Unknown 08/07/24 Unknown Unknown Active Unknown Unknown N/A [id number] 2 Unknown 06/10/32 Unknown Unknown Active Unknown Unknown NA [id number] 1 Unknown 04/01/27 Unknown Unknown Active Unknown Unknown N/A [id number] 2 Unknown 12/07/31 Unknown Unknown Active Unknown Unknown N/A [id number] 2 Unknown 12/15/26 Unknown Unknown Active Unknown Patient Care team information Personnel Name: Mally Vazquez APRN Address: Address: [address] [place] [id number]
--- OUTSIDE RECORDS SUMMARY | 2024-04-25 04:11 | XMS_ITS | Continuity of Care Document ---
Author Name Unknown Organization [facility] Address [address] [place] [id number] Care Team Providers Care School Crossing Guard Name Role Phone Mally Vazquez APRN Primary Care Physician [phone] Encounter [facility] NBR [id number] Date(s): 01/06/23 - 01/06/[address] [id number] Encounter Diagnosis Encounter for screening for other metabolic disorders(Final) - Type 2 diabetes mellitus without complications(Final) - Anemia in other chronic diseases classified elsewhere(Final) - Discharge Disposition: Home or Self Care Attending Physician: Mally Vazquez APRN Admitting Physician: Mally Vazquez APRN Allergies, Adverse Reactions, [...] 08/02/22 Recorded 1Result Comment: RD done at [place] Lot: [id number] exp: 05/08/2023 Sanofi 2Result Comment: Lot: [id number] Exp: 06/08/23 LD done at [place] Medications Acidophilus Probiotic Blend 1 cap, Oral, Daily, 0 Refill(s) Start Date: 08/11/22 Status: Ordered Albuterol (Eqv-Proventil HFA) 90 mcg/inh inhalation aerosol 1 puffs, Inhale, every 4 hr, PRN as needed for wheezing, Do not exceed 12 inhalations in a 24-hour period., # 1 EA, 0 Refill(s), Pharmacy: [facility] #[id number], 170, cm, 11/11/22 12:19:00 EST, Height/Length Dosing, 96, kg, 11/11/22 12:19:00 EST, Weight... Start Date: 11/25/22 Status: Ordered alendronate 70 mg oral tablet 70 mg = 1 tab, Oral, every week, typically takes on Thursday, # 12 tab, 0 Refill(s), Pharmacy: [facility], 114.09, cm, 08/12/22 16:18:00 EDT, [...] evening, # 90 tab, 3 Refill(s), Pharmacy: [facility],114.09, cm, 08/12/22 16:18:00 EDT, Height/Length [...] morning, # 90 tab, 3 Refill(s), Pharmacy: [facility],114.09, cm, 08/12/22 16:18:00 EDT, Height/Length Dosing, 165, kg, 08/12/22 16:18:00 EDT, Weight Dosing Start Date: 10/24/22 Stop Date: 10/19/23 Status: Ordered gabapentin 100 mg oral capsule 100 mg = 1 cap, Oral, BID, # 180 cap, 1 Refill(s), Pharmacy: [facility], 114.09,cm, 08/12/22 16:18:00 EDT, Height/Length [...] Daily, # 90 tab, 3 Refill(s), Pharmacy: [facility], 114.09, cm, 08/12/22 16:18:00 EDT, Height/Length Dosing, 165, kg, 08/12/22 16:18:00 EDT, Weight Dosing Start Date: 10/24/22 Stop Date: 10/19/23 Status: Ordered metFORMIN 500 mg oral tablet 500 mg = 1 tab, Oral, every evening, # 90 tab, 3 Refill(s), Pharmacy: [facility], 114.09, cm, 08/12/22 16:18:00 EDT, Height/Length Dosing, 165, kg, 08/12/22 16:18:00 EDT, Weight Dosing Start Date: 10/24/22 Stop Date: 10/19/23 Status: Ordered metoprolol tartrate 25 mg oral tablet 25 mg = 1 tab, Oral, BID, # 180 tab, 3 Refill(s), Pharmacy: [facility], 114.09, cm, 08/12/22 16:18:00 EDT, [...] to Fibroids Results Laboratory List Name Date Microalbumin/Creatinine Ratio Urine 01/06 Comprehensive Metabolic Panel (CMP) 01/06 Hgb A1c (Hemoglobin A1C) 01/06/23 Iron Panel 01/06/23 Vitamin B12 & Folate Level 01/06/23 Most recent to oldest [Reference Range]: 1 BUN [8-26 mg/dL] 32 mg/dL *HI* (01/06/23 11:51 AM) Glucose Level [74-106 mg/dL] 96 mg/dL (01/06/23 11:51 AM) Potassium Level [3.5-5.1 mmol/L] 4.5 mmo l/L (01/06/23 11:51 AM) AST [15-41 IntlUnit/L] 23 IntlUnit/L (01/06/23 11:51 AM) ALT [14-54 IntlUnit/L] 15 IntlUnit/L (01/06/23 11:51 AM) Osmolality [275-295 mOsm/kg] 282 mOsm/kg (01/06/23 11:51 AM) Sodium Level [134-143 mmol/L] 138 mmol/L (01/06/23 11:51 AM) Folate Level [>=5.9 ng/mL] >20.0 ng/mL (01/06/23 11:51 AM) Calcium Level [8.9-10.3 mg/dL] 9.1 mg/dL (01/06/23 11:51 AM) Albumin Level [3.5-5.0 g/dL] 4.0 g/dL (01/06/23 11:51 AM) Protein Total [6.5-8.1 g/dL] 7.1 g/dL (01/06/23 11:51 AM) Iron Sat [20-55 %] 26 % (01/06/23 11:51 AM) Bilirubin Total [0.2-1.2 mg/dL] 1.2 mg/d L (01/06/23 11:51 AM) Transferrin [192-382 mg/dL] 286 mg/dL (01/06/23 11:51 AM) B12 Level [180-914 pg/mL] 517 pg/mL (01/06/23 11:51 AM) Alk Phos [38-130 IntlUnit/L] 63 IntlUnit /L (01/06/23 11:51 AM) CO2 [22-32 mmol/L] 31 mmol/L (01/06/23 11:51 AM) TIBC 400 *NA* (01/06/23 11:51 AM) Iron [28-170 mcg/dL] 104 mcg/dL (01/06/23 11:51 AM) eAvg Glucose 148 *NA* (01/06/23 11:51 AM) U Creatinine 54.2 mg/dL *NA* (01/06/23 12:26 PM) Chloride Level [98-111 mmol/L] 97 mmol/L *LOW* (01/06/23 11:51 AM) A/G Ratio 1.3 *NA* (01/06/23 11:51 AM) BUN/Creat Ratio [8.0-20.0] 28.1 *HI* (01/06/23 11:51 AM) Globulin 3.1 *NA* (01/06/23 11:51 AM) U Microalb/Creat [0.0-30.0] 138.7 *HI* (01/06/23 12:26 PM) U Microalb [<=19.0 mg/L] 75.2 mg/L *HI* (01/06/23 12:26 PM) Hgb A1c Percent [4.0-6.0 %] 6.8 % *HI* (01/06/23 11:51 AM) .Hb 12.7 *NA* (01/06/23 11:51 AM) .Hgb A1c 0.65 *NA* (01/06/23 11:51 AM) Creatinine Level [0.44-1.00 mg/dL] 1.14 mg/dL *HI* (01/06/23 11:51 AM) Anion Gap [3.0-12.0] 10.0 (01/06/23 11:51 AM) eGFR CKD-EPI [>=60 mL/min/1.73 m2] 50 mL /min/1.73 m2 *LOW* (01/06/23 11:51 AM) Social History Social History Type Response Tobacco Never tobacco user T obacco Use:. 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 Katlyn Peoples, DO 08/12/22 Non Biological Knee L Device Identifier Serial Number Lot or Batch Number Manufacturing Date Expiration Date Distinct Identification Code MRI Safety Implantable Status Assigning Authority Unknown NA [id number] Unknown 08/07/24 Unknown Unknown Active Unknown Unknown N/A [id number] 2 Unknown 06/10/32 Unknown Unknown Active Unknown Unknown NA [id number] 1 Unknown 04/01/27 Unknown Unknown Active Unknown Unknown N/A [id number] 2 Unknown 12/07/31 Unknown Unknown Active Unknown Unknown N/A [id number] 2 Unknown 12/15/26 Unknown Unknown Active Unknown Patient Care team information Care Team Personnel Name: Sanaz Fang APRN, Position: Physician Member Role: Nurse Practitioner Address: Address: [address] [place] [address] Name: Anabel Peoples APRN Position: Physician Member Role: Nurse Practitioner Address: Address: [address] [place] [address] Name: Mally Vazquez APRN Position: Physician Member Role: Primary Care Physician Address: Address: [address] [place] [address] [place] Care Team Related Persons Name: LAURA LEON
--- OUTSIDE RECORDS SUMMARY | 2024-04-25 04:11 | XMS_ITS | Continuity of Care Document ---
Author Name Unknown Organization [facility] Address [address] [place] [id number] Care Team Providers Care Public Service Director Name Role Phone Mally Vazquez APRN Primary Care Physician Encounter [facility] FIN NBR [id number] Date(s): 01/06/23 - 01/06/[address] [id number] Discharge Disposition: Home or Self Care Attending [...] 08/02/22 Recorded 1Result Comment: RD done at [facility] Lot: [id number] exp: 05/08/2023 Sanofi 2Result Comment: Lot: [id number] Exp: 06/08/23 LD done at [facility] Medications Acidophilus Probiotic Blend 1 cap, Oral, Daily, 0 Refill(s) Start Date: 08/11/22 Status: Ordered Albuterol (Eqv-Proventil HFA) 90 mcg/inh inhalation aerosol 1 puffs, Inhale, every 4 hr, PRN as needed for wheezing, Do not exceed 12 inhalations in a 24-hour period., # 1 EA, 0 Refill(s), Pharmacy: [facility] #[id number], 170, cm, 11/11/22 12:19:00 EST, Height/Length Dosing, 96, kg, 11/11/22 12:19:00 EST, Weight... Start Date: 11/25/22 Status: Ordered alendronate 70 mg oral tablet 70 mg = 1 tab, Oral, every week, typically takes on Thursday, # 12 tab, 0 Refill(s), Pharmacy: [facility], 114.09, cm, 08/12/22 16:18:00 EDT, [...] evening, # 90 tab, 3 Refill(s), Pharmacy: [facility],114.09, cm, 08/12/22 16:18:00 EDT, Height/Length [...] morning, # 90 tab, 3 Refill(s), Pharmacy: [facility],114.09, cm, 08/12/22 16:18:00 EDT, Height/Length Dosing, 165, kg, 08/12/22 16:18:00 EDT, Weight Dosing Start Date: 10/24/22 Stop Date: 10/19/23 Status: Ordered gabapentin 100 mg oral capsule 100 mg = 1 cap, Oral, BID, # 180 cap, 1 Refill(s), Pharmacy: [facility], 114.09,cm, 08/12/22 16:18:00 EDT, Height/Length [...] Daily, # 90 tab, 3 Refill(s), Pharmacy: [facility], 114.09, cm, 08/12/22 16:18:00 EDT, Height/Length Dosing, 165, kg, 08/12/22 16:18:00 EDT, Weight Dosing Start Date: 10/24/22 Stop Date: 10/19/23 Status: Ordered metFORMIN 500 mg oral tablet 500 mg = 1 tab, Oral, every evening, # 90 tab, 3 Refill(s), Pharmacy: [facility], 114.09, cm, 08/12/22 16:18:00 EDT, Height/Length Dosing, 165, kg, 08/12/22 16:18:00 EDT, Weight Dosing Start Date: 10/24/22 Stop Date: 10/19/23 Status: Ordered metoprolol tartrate 25 mg oral tablet 25 mg = 1 tab, Oral, BID, # 180 tab, 3 Refill(s), Pharmacy: [facility], 114.09, cm, 08/12/22 16:18:00 EDT, [...] Exam Date Time Procedure Performing Provider Status 2/28/23 12:16 PM XR Shoulder Complete 2+ Views Left Luz Pagan; Ariadna (Verified) Notes: (XR Shoulder Complete 2+ Views Left) Reason For Exam: left shoulder pain XR Shoulder Complete 2+ Views Left EXAM DESCRIPTION: XR Shoulder Complete 2+ Views Left 01/06/2023 INDICATION: LEFT SHOULDER PAIN COMPARISON: 12/06/2019 IMPRESSION: No acute fracture or dislocation 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 Katlyn Peoples, 08/12/22 Non Biological Knee L Device Identifier Serial Number Lot or Batch Number Manufacturing Date Expiration Date Distinct Identification Code MRI Safety Implantable Status Assigning Authority Unknown NA [id number] Unknown 08/07/24 Unknown Unknown Active Unknown Unknown N/A [id number] 2 Unknown 06/10/32 Unknown Unknown Active Unknown Unknown NA [id number] 1 Unknown 04/01/27 Unknown Unknown Active Unknown Unknown N/A [id number] 2 Unknown 12/07/31 Unknown Unknown Active Unknown Unknown N/A [id number] 2 Unknown 12/15/26 Unknown Unknown Active Unknown XR Shoulder - left GE 2 Views * Kishore Parra MD: VERIFY, VERIFY Event Display: Report EXAM DESCRIPTION: XR Shoulder Complete 2+ Views Left 01/06/2023 INDICATION: LEFT SHOULDER PAIN COMPARISON: 12/06/2019 IMPRESSION: No acute fracture or dislocation 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 and humeral head osteophyte formation as described previously AC joint osteoarthritic changes with joint space narrowing and osteophyte formation No focal lytic or sclerotic lesion JOB #: [id number] Final Signed by: Kishore Parra MD Signed (Electronic Signature): 01/06/2023 1:36 pm Patient Care team information Care Team Personnel Name: Sanaz Fang APRN, Position: Physician Member Role: Nurse Practitioner Address: Address: [address] [place] [address] Name: Anabel Peoples APRN Position: Physician Member Role: Nurse Practitioner Address: Address: [address] [place] [address] Name: Mally Vazquez APRN Position: Physician Member Role: Primary Care Physician Address: Address: [address] [place] [address] Care Team Related Persons Name: LAURA LEON
--- OUTSIDE RECORDS SUMMARY | 2024-04-25 04:11 | XMS_ITS | Continuity of Care Document ---
Author Name Unknown Organization [facility] Address [address] [place] [address] Care Team Providers Care Privacy Director Name Role Phone Mally Vazquez APRN Primary Care Physician Encounter [facility] FIN NBR [id number] Date(s): 11/06/23 - 11/06/[address] [id number] Discharge Disposition: Home or Self Care Attending Physician: Asya Aquino PA-C Admitting Physician: Asya Aquino PA-C Referring Physician: Asya Aquino PA-C Allergies, Adverse [...] 08/02/22 Recorded 1Result Comment: RD done at [place] Lot: [id number] exp: 05/08/2023 Sanofi 2Result Comment: Lot: [id number] Exp: 06/08/23 LD done at [place] Medications Albuterol (Eqv-Proventil HFA) 90 mcg/inh inhalation aerosol 1 puffs, Inhale, every 4 hr, PRN as needed for wheezing, Do not exceed 12 inhalations in a 24-hour period., # 1 EA, 0 Refill(s), Pharmacy: [facility] #[id number], 170, cm, 11/11/22 12:19:00 EST, [...] taking., # 12 tab, 1 Refill(s), Pharmacy: [facility], 170, cm, 11/11/22 12:19:00 EST, Height/Length Dosing, 96, kg, 11/11/22 12:19:00 EST, Weight Dosing Start Date: 07/21/23 Stop Date: 01/05/24 Status: Ordered atorvastatin 10 mg oral tablet 10 mg = 1 tab, Oral, every evening, # 90 tab, 3 Refill(s), Pharmacy: [facility],114.09, cm, 08/12/22 16:18:00 EDT, Height/Length [...] morning, # 90 tab, 3 Refill(s), Pharmacy: [facility], 165, cm, 09/24/23 19:47:00 EST, Height, 102.2, kg, 09/24/23 19:47:00 EST, Weight Dosing Start Date: 10/13/23 Status: Ordered gabapentin 100 mg oral capsule 100 mg = 1 cap, Oral, Daily, # 90 cap, 3 Refill(s), Pharmacy: [facility], 165, cm, 09/24/23 19:47:00 EST, Height, 102.2, kg, 09/24/23 19:47:00 EST, Weight Dosing Start Date: 10/13/23 Stop Date: 10/07/24 Status: Ordered Jardiance 10 mg oral tablet 1 tab, Oral, every morning, # 30 tab, 0 Refill(s), Pharmacy: [facility] #[id number], 165, cm, 09/24/2319:47:00 EST, Height, [...] STOMACH, # 90 tab, 3 Refill(s), Pharmacy: [facility], 170, cm, 11/11/22 12:19:00 EST, Height/Length Dosing, 96, kg,11/11/22 12:19:00 EST, Weight Dosing Start Date: 04/14/23 Status: Ordered losartan 100 mg oral tablet 1 tab, Oral, Daily, # 90 tab, 3 Refill(s), Pharmacy: [facility], 165, cm, 09/24/23 19:47:00 EST, Height, 102.2, kg, 09/24/23 19:47:00 EST, Weight Dosing Start Date: 10/01/23 Status: Ordered metoprolol tartrate 25 mg oral tablet 25 mg = 1 tab, Oral, BID, # 180 tab, 3 Refill(s), Pharmacy: [facility], 170, cm,11/11/22 12:19:00 EST, Height/Length Dosing, 96, kg, 11/11/22 12:19:00 EST, Weight Dosing Start Date: 08/25/23 Stop Date: 08/19/24 Status: Ordered multivitamin adult, oral tablet 1 tab, Oral, Daily Start Date: 08/11/22 Status: Ordered [employer] oral capsule 8 EA, TAKE 1 CAPSULE BY MOUTH TWICE DAILY, 0 Refill(s) Start Date: 04/22/23 Status: Ordered Please provide one touch ultra test strips Please provide one touch ultra test strips, For blood glucose monitoring once daily., Supply, See instructions, # 100 EA, 3 Refill(s), Pharmacy: [facility] Start Date: 10/23/23 Status: Ordered [...] Results Laboratory List Name Date Automated Diff 11/06/23 CBC w/ Diff 11/06/23 Comprehensive Metabolic Panel 11/06/23 Ferritin 11/06/23 Iron Panel 11/06/23 Lactate Dehydrogenase 11/06/23 Magnesium Level 11/06/23 Miscellaneous Testing LC 11/06/23 Vitamin B12 Level 11/06/23 Most recent to oldest [Reference Range]: 1 WBC [4.8-10.8 K/mcL] 6.2 K/mcL (11/06/23 9:21 AM) RBC [4.20-5.40 Million/mcL] 3.22 Million /mcL *LOW* (11/06/23 9:21 AM) Neutro Auto [42.2-75.2 %] 75.9 % *HI* (11/06/23 9:21 AM) Lymph Auto [20.5-51.1 %] 13.3 % *LOW* (11/06/23 9:21 AM) [place] Auto [1.7-9.3 %] 8.3 % (11/06/23 9:21 AM) Basophil Auto [0.0-0.8 %] 0.5 % (11/06/23 9:21 AM) BUN [7-25 mg/dL] 31 mg/dL *HI* (11/06/23 9:21 AM) Glucose Level [70-109 mg/dL] 175 mg/dL *HI* (11/06/23 9:21 AM) Potassium Level [3.5-5.1 mmol/L] 4.2 mmo l/L (11/06/23 9: AM) Baso Absolute [0.0-0.2 K/mcL] 0.0 K/mcL (11/06/23 9:21 AM) MCV [81.0-99.0 fL] 91.1 fL (11/06/23: AM) AST [13-39 IntlUnit/L] 20 IntlUnit/L (11/06/23 9: AM) ALT [7-52 IntlUnit/L] 14 IntlUnit/L (11/06/23: AM) MCHC [32.0-37.0 g/dL] 32.4 g/dL (11/06/23 9: AM) Osmolality [275-295 mOsm/kg] 290 mOsm/kg (11/06/23: AM) Sodium Level [136-145 mmol/L] 140 mmol/L (11/06/23 9: AM) Lymph Absolute [1.2-3.4 K/mcL] 0.8 K/mcL *LOW* (11/06/23: AM) Hct [37.0-47.0 %] 29.3 % *LOW* (11/06/23: AM) Calcium Level [8.6-10.3 mg/dL] 8.6 mg/dL (11/06/23 9: AM) [place] Absolute [0.1-0.6 K/mcL] 0.5 K/mcL (11/06/23 9: AM) Albumin Level [3.5-5.7 g/dL] 3.8 g/dL (11/06/23 9:21 AM) Protein Total [6.4-8.9 g/dL] 7.0 g/dL (11/06/23 9: AM) Iron Sat [20-55 %] 11 % *LOW* (11/06/23 9: AM) MCH [27.0-31.0 pg] 29.6 pg (11/06/23: AM) Magnesium Level [1.9-2.7 mg/dL] 2.3 mg/d L (11/06/23 9:21 AM) Neutro Absolute [1.4-6.5 K/mcL] 4.7 K/mc L (11/06/23 9: AM) Bilirubin Total [0.3-1.0 mg/dL] 0.9 mg/d L (11/06/23 9:21 AM) Hgb [12.0-16.0 g/dL] 9.5 g/dL *LOW* (11/06/23: AM) Transferrin [203-362 mg/dL] 300 mg/dL (11/06/23 9:21 AM) B12 Level [180-914 pg/mL] 561 pg/mL (11/06/23 9: AM) Alk Phos [34-104 IntlUnit/L] 65 IntlUnit /L (11/06/23 9:21 AM) LDH [140-271 IntlUnit/L] 190 IntlUnit/L (11/06/23 9:21 AM) MPV [7.4-10.4 fL] 9.1 fL (11/06/23 9:21 AM) Ferritin Level [11.0-307.0 ng/mL] 54.2 n g/mL (11/06/23 9: AM) Platelets [130-400 K/mcL] 191 K/mcL (11/06/23 9:21 AM) CO2 [21-31 mmol/L] 29 mmol/L (11/06/23 9:21 AM) Eos Absolute [0.0-0.2 K/mcL] 0.1 K/mcL (11/06/23 9:21 AM) TIBC 420 *NA* (11/06/23 9: AM) Iron [50-212 mcg/dL] 48 mcg/dL *LOW* (11/06/23: AM) Chloride Level [98-107 mmol/L] 103 mmol/ L (11/06/23 9: AM) RDW-CV [11.5-14.5 %] 14.8 % *HI* (11/06/23 9: AM) A/G Ratio [1.0-2.5 g/dL] 1.2 g/dL (11/06/23 9:21 AM) BUN/Creat Ratio [8.0-20.0] 20.7 *HI* (11/06/23 9:21 AM) Globulin [2.3-3.5 g/dL] 3.2 g/dL (11/06/23 9:21 AM) Misc Test Result LC COMMENT 1 *NA* (11/06/23 9:21 AM) Creatinine Level [0.60-1.20 mg/dL] 1.50 mg/dL *HI* (11/06/23 9:21 AM) Anion Gap [3.0-12.0] 8.0 (11/06/23 9:21 AM) Eos, Auto [0.00-3.00 %] 2.00 % (11/06/23 9:21 AM) eGFR CKD-EPI [>=60 mL/min/1.73 m2] 35 mL /min/1.73 m2 *LOW* (11/06/23 9:21 AM) 1Result Comment: Test Ordered: [id number] Reticulocyte Count Reticulocyte Count 2.9 [H ] % RN Reference Range: 0.6-2.6 Performed At: RN [facility] [address] [id number] Arley Mora MD [phone] Social History Social History Type Response Tobacco Never tobacco user T obacco Use:. 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 Prateekemiliana Richelle, DO 08/12/22 Non Biological Knee L Device Identifier Serial Number Lot or Batch Number Manufacturing Date Expiration Date Distinct Identification Code MRI Safety Implantable Status Assigning Authority Unknown NA [id number] Unknown 08/07/24 Unknown Unknown Active Unknown Unknown N/A [id number] 2 Unknown 06/10/32 Unknown Unknown Active Unknown Unknown NA [id number] 1 Unknown 04/01/27 Unknown Unknown Active Unknown Unknown N/A [id number] 2 Unknown 12/07/31 Unknown Unknown Active Unknown Unknown N/A [id number] 2 Unknown 12/15/26 Unknown Unknown Active Unknown Patient Care team information Care Team Personnel Name: Sanaz Fang APRN, Position: Physician Member Role: Nurse Practitioner Address: Address: [address] [place] [address] Name: Anabel Hallman APRN Position: Physician Member Role: Nurse Practitioner Address: Address: [address] [place] [address] Name: Mally Vazquez APRN Position: Physician Member Role: Primary Care Physician Address: Address: [address] [place] [id number] Care Team Related Persons Name: LAURA LEON
--- OUTSIDE RECORDS SUMMARY | 2024-04-25 04:11 | XMS_ITS | Continuity of Care Document ---
Author Name Unknown Organization [facility] Ambulatory Clinics Address [address] [place] [address] Care Team Providers Care Marine Consultant Name Role Phone Resmita EDMOND Mally Ronda Primary Care Physician Encounter [facility] NBR [id number] Date(s): 01/19/24 - 01/19/24 [facility] Ambulatory Clinics [address] [place] [address]- [place] Discharge Disposition: Home Allergies, Adverse Reactions, [...] 08/02/22 Recorded 1Result Comment: RD done at [place] Lot: [id number] exp: 05/08/2023 Sanofi 2Result Comment: Lot: [id number] Exp: 06/08/23 LD done at [place] Medications Acidophilus 1 tab, Oral, every morning [...] taking., # 12 tab, 1 Refill(s), Pharmacy: [facility], 170, cm, 11/11/22 12:19:00 EST, Height/Length Dosing, 96, kg, 11/11/22 12:19:00 EST, Weight Dosing Start Date: 07/21/23 Stop Date: 01/05/24 Status: Ordered atorvastatin 10 mg oral tablet 10 mg = 1 tab, Oral, every evening, # 90 tab, 3 Refill(s), Pharmacy: [facility],114.09, cm, 08/12/22 16:18:00 EDT, Height/Length [...] BID, # 60 tab, 0 Refill(s), Pharmacy: [id number], 165, cm, 11/24/23 16:14:00 EST, [...] morning, # 30 tab, 3 Refill(s), Pharmacy: [facility] #[id number], 165.1, cm, 11/14/23 22:52:00 EST, [...] BID, # 180 tab, 3 Refill(s), Pharmacy: [facility], 170, cm,11/11/22 12:19:00 EST, Height/Length [...] Safety Implantable Status Assigning Authority Unknown NA [id number] Unknown 08/07/24 Unknown Unknown Active Unknown Unknown N/A [id number] 2 Unknown 06/10/32 Unknown Unknown Active Unknown Unknown NA [id number] 1 Unknown 04/01/27 Unknown Unknown Active Unknown Unknown N/A [id number] 2 Unknown 12/07/31 Unknown Unknown Active Unknown Unknown N/A [id number] 2 Unknown 12/15/26 Unknown Unknown Active Unknown Patient Care team information Care Team Personnel Name: Sanaz Fang APRN, Position: Physician Member Role: Nurse Practitioner Address: Address: [address] [place] [address] Name: Anabel Hallman APRN Position: Physician Member Role: Nurse Practitioner Address: Address: [address] [place] [address] Name: Mally Vazquez APRN Position: Physician Member Role: Primary Care Physician Address: Address: [address] [place] [address] Care Team Related Persons Name: LAURA LEON
--- OUTSIDE RECORDS SUMMARY | 2024-04-25 04:11 | XMS_ITS | Continuity of Care Document ---
Author Name Unknown Organization [facility] Ambulatory Clinics Address [address] [place] [address] Care Team Providers Care Pipe Bending Machine Operator Name Role Phone Taylor FELI Mally Ronda Primary Care Physician Encounter [facility] FIN NBR [id number] Date(s): 02/22/24 - 02/22/24 [facility] Ambulatory Clinics [address] [place] [address]- [place] Discharge Disposition: Home Allergies, Adverse Reactions, [...] 08/02/22 Recorded 1Result Comment: RD done at [place] Lot: [id number] exp: 05/08/2023 Sanofi 2Result Comment: Lot: [id number] Exp: 06/08/23 LD done at [place] Medications Acidophilus 1 tab, Oral, every morning [...] taking., # 12 tab, 1 Refill(s), Pharmacy: [facility], 170, cm, 11/11/22 12:19:00 EST, Height/Length Dosing, 96, kg, 11/11/22 12:19:00 EST, Weight Dosing Start Date: 07/21/23 Stop Date: 01/05/24 Status: Ordered atorvastatin 10 mg oral tablet 10 mg = 1 tab, Oral, every evening, # 90 tab, 3 Refill(s), Pharmacy: [facility],114.09, cm, 08/12/22 16:18:00 EDT, Height/Length [...] BID, # 60 tab, 0 Refill(s), Pharmacy: [id number], 165.09, cm, 02/09/2411:11:00 EDT, Height, 99.79, kg, 02/10/24 11:13:00 EDT, Weight Dosing Start Date: 02/22/24 Status: Ordered famotidine 20 mg oral tablet [...] morning, # 30 tab, 3 Refill(s), Pharmacy: [facility] #[id number], 165.1, cm, 11/14/23 22:52:00 EST, [...] BID, # 180 tab, 3 Refill(s), Pharmacy: [facility], 170, cm,11/11/22 12:19:00 EST, Height/Length [...] Safety Implantable Status Assigning Authority Unknown NA [id number] Unknown 08/07/24 Unknown Unknown Active Unknown Unknown N/A [id number] 2 Unknown 06/10/32 Unknown Unknown Active Unknown Unknown NA [id number] 1 Unknown 04/01/27 Unknown Unknown Active Unknown Unknown N/A [id number] 2 Unknown 12/07/31 Unknown Unknown Active Unknown Unknown N/A [id number] 2 Unknown 12/15/26 Unknown Unknown Active Unknown Patient Care team information Care Team Personnel Name: Sanaz Fang APRN Position: Physician Member Role: Nurse Practitioner Address: Address: [address] [place] [address] Name: Anabel Hallman APRN Position: Physician Member Role: Nurse Practitioner Address: Address: [address] [place] [address] Name: Mally Vazquez APRN Position: Physician Member Role: Primary Care Physician Address: Address: [address] [place] [address] Care Team Related Persons Name: LAURA LEON
--- OUTSIDE RECORDS SUMMARY | 2024-04-25 04:11 | XMS_ITS | Continuity of Care Document ---
Author Name Unknown Organization [facility] Ambulatory Clinics Address [address] [place] [address] Care Team Providers Care Tipple Engineer Name Role Phone Mally Vazquez APRN Primary Care Physician [phone] Encounter [facility] FIN NBR [id number] Date(s): 04/08/23 - 04/08/23 [facility] Ambulatory Clinics [address] [place] [address]- [place] Discharge Disposition: Home Allergies, [...] inactivated 1 08/02/22 Re corded SARS-CoV-2 mRNA (toshainanamlucilan 12y+) bival 2 08/02/22 Recorded 1Result Comment: RD done at [place] Lot: [id number] exp: 05/08/2023 Sanofi 2Result Comment: Lot: [id number] Exp: 06/08/23 LD done at [place] Medications Acidophilus Probiotic Blend 1 cap, Oral, Daily, 0 Refill(s) Start Date: 08/11/22 Status: Ordered Albuterol (Eqv-Proventil HFA) 90 mcg/inh inhalation aerosol 1 puffs, Inhale, every 4 hr, PRN as needed for wheezing, Do not exceed 12 inhalations in a 24-hour period., # 1 EA, 0 Refill(s), Pharmacy: [facility] #[id number], 170, cm, 11/11/22 12:19:00 EST, [...] taking., # 12 tab, 1 Refill(s), Pharmacy: [facility]... Start Date: 02/03/23 Stop Date: 07/21/23 Status: Ordered aspirin 81 mg oral delayed release tablet 81 mg = 1 tab, Oral, Daily, # 30 tab, 0 Refill(s) Start Date: 01/05/23 Status: Ordered atorvastatin 10 mg oral tablet 10 mg = 1 tab, Oral, every evening, # 90 tab, 3 Refill(s), Pharmacy: [facility],114.09, cm, 08/12/22 16:18:00 EDT, Height/Length [...] 03/24/2023, # 90 tab, 0 Refill(s), Pharmacy: [facility] #[id number], 170, cm, 11/11/22 12:19:00 EST, [...] morning, # 90 tab, 3 Refill(s), Pharmacy: [facility],114.09, cm, 08/12/22 16:18:00 EDT, Height/Length Dosing, 165, kg, 10/04/22 16:18:00 EDT, Weight Dosing Start Date: 10/24/22 [...] Daily, # 90 tab, 3 Refill(s), Pharmacy: [facility], 114.09, cm, 08/12/22 16:18:00 EDT, Height/Length Dosing, 165, kg, 08/12/22 16:18:00 EDT, Weight Dosing Start Date: 10/24/22 Stop Date: 10/19/23 Status: Ordered metFORMIN 500 mg oral tablet 500 mg = 1 tab, Oral, every evening, # 90 tab, 3 Refill(s), Pharmacy: [facility], 114.09, cm, 08/12/22 16:18:00 EDT, Height/Length Dosing, 165, kg, 08/12/22 16:18:00 EDT, Weight Dosing Start Date: 10/24/22 Stop Date: 10/19/23 Status: Ordered metoprolol tartrate 25 mg oral tablet 25 mg = 1 tab, Oral, BID, # 180 tab, 3 Refill(s), Pharmacy: [facility], 114.09, cm, 08/12/22 16:18:00 EDT, [...] Safety Implantable Status Assigning Authority Unknown NA [id number] Unknown 08/07/24 Unknown Unknown Active Unknown Unknown N/A [id number] 2 Unknown 06/10/32 Unknown Unknown Active Unknown Unknown NA [id number] 1 Unknown 04/01/27 Unknown Unknown Active Unknown Unknown N/A [id number] 2 Unknown 12/07/31 Unknown Unknown Active Unknown Unknown N/A [id number] 2 Unknown 12/15/26 Unknown Unknown Active Unknown Patient Care team information Care Team Personnel Name: Sanaz Fang APRN, Position: Physician Member Role: Nurse Practitioner Address: Address: [address] [place] [address] Name: Anabel Hallman APRN Position: Physician Member Role: Nurse Practitioner Address: Address: [address] [place] [address] Name: Mally Vazquez APRN Position: Physician Member Role: Primary Care Physician Address: Address: [address] [place] [address] Care Team Related Persons Name: LAURA LEON Address: Home
--- OUTSIDE RECORDS SUMMARY | 2024-04-25 04:11 | XMS_ITS | Continuity of Care Document ---
Author Name Unknown Organization [facility] Ambulatory Clinics Address [address] [place] [address] Care Team Providers Care Tail End Rider Name Role Phone Resmita EDMOND Mally Rnoda Primary Care Physician [phone] [facility] [id number] Date(s): 11/16/23 - 11/16/23 [facility] Ambulatory Clinics [address] [place] [address]- Discharge Disposition: Home Allergies, Adverse Reactions, Alerts [...] 08/02/22 Recorded 1Result Comment: RD done at [place] Lot: [id number] exp: 05/08/2023 Sanofi 2Result Comment: Lot: [id number] Exp: 06/08/23 LD done at [place] Medications Acidophilus 1 tab, Oral, every morning Start Date: 11/15/23 Status: Ordered Albuterol (Eqv-Proventil HFA) 90 mcg/inh inhalation aerosol 1 puffs, Inhale, every 4 hr, PRN as needed for wheezing, Do not exceed 12 inhalations in a 24-hour period., # 1 EA, 0 Refill(s), Pharmacy: [id number], 170, cm, 11/11/22 12:19:00 EST, [...] taking., # 12 tab, 1 Refill(s), Pharmacy: [facility], 170, cm, 11/11/22 12:19:00 EST, Height/Length Dosing, 96, kg, 11/11/22 12:19:00 EST, Weight Dosing Start Date: 07/21/23 Stop Date: 01/05/24 Status: Ordered atorvastatin 10 mg oral tablet 10 mg = 1 tab, Oral, every evening, # 90 tab, 3 Refill(s), Pharmacy: [facility],114.09, cm, 08/12/22 16:18:00 EDT, Height/Length [...] morning, # 90 tab, 3 Refill(s), Pharmacy: [facility], 165, cm, 09/24/23 19:47:00 EST, Height, 102.2, kg, 09/24/23 19:47:00 EST, Weight Dosing Start Date: 10/13/23 Status: Ordered gabapentin 100 mg oral capsule 100 mg = 1 cap, Oral, Daily, # 90 cap, 3 Refill(s), Pharmacy: [facility], 165, cm, 09/24/23 19:47:00 EST, [...] morning, # 30 tab, 0 Refill(s), Pharmacy: [id number], 165, cm, 09/24/2319:47:00 EST, Height, [...] stomach, # 90 tab, 3 Refill(s), Pharmacy: [facility], 170, cm, 11/11/22 12:19:00 EST, Height/Length Dosing, 96, kg, 11/11/22 12:19:00 EST, Weight Dosing Start Date: 04/14/23 Status: Ordered losartan 100 mg oral tablet 1 tab, Oral, every evening, # 90 tab, 3 Refill(s), Pharmacy: [facility], 165, cm, 09/24/23 19:47:00 EST, Height, 102.2, kg, 09/24/23 19:47:00 EST, Weight Dosing Start Date: 10/01/23 Status: Ordered metoprolol tartrate 25 mg oral tablet 25 mg = 1 tab, Oral, BID, # 180 tab, 3 Refill(s), Pharmacy: [facility], 170, cm,11/11/22 12:19:00 EST, Height/Length [...] instructions, # 100 EA, 3 Refill(s), Pharmacy: [facility] Start Date: 10/23/23 Status: Ordered [...] Safety Implantable Status Assigning Authority Unknown NA [id number] 802 Unknown 08/07/24 Unknown Unknown Active Unknown Unknown N/A [id number] 2 Unknown 06/10/32 Unknown Unknown Active Unknown Unknown NA [id number] 1 Unknown 04/01/27 Unknown Unknown Active Unknown Unknown N/A [id number] 2 Unknown 12/07/31 Unknown Unknown Active Unknown Unknown N/A [id number] 2 Unknown 12/15/26 Unknown Unknown Active Unknown Patient Care team information Care Team Personnel Name: Sanaz Fang APRN, Position: Physician Member Role: Nurse Practitioner Address: Address: [address] [place] [address] Name: Anabel Hallman APRN Position: Physician Member Role: Nurse Practitioner Address: Address: [address] [place] [address] Name: Mally Vazquez APRN Position: Physician Member Role: Primary Care Physician Address: Address: [address] [place] [address] Care Team Related Persons Name: LAURA LEON
--- OUTSIDE RECORDS SUMMARY | 2024-04-25 04:11 | XMS_ITS | Continuity of Care Document ---
Author Name Unknown Organization [facility] Ambulatory Clinics Address [address] [place] [address] Care Team Providers Care Private Branch Exchange Installer Name Role Phone Mally Vazquez APRN Primary Care Physician [phone] Encounter [facility] NBR [id number] Date(s): 01/05/23 - 01/05/23 [facility] Ambulatory Clinics [address] [place], [place] [address] Encounter Diagnosis Obstructive sleep apnea(Discharge Diagnosis) - 01/05/23 Discharge Disposition: Home or Self Care Attending Physician: Mally Vazquez APRN Allergies, Adverse Reactions, Alerts Substance Reaction Severity Status narcotic analgesics Unknown Active sulfa drugs Rash Hallucinations Unknown Active Flomax Dizziness Unknown Active Assessment and Plan Future Appointments Appointment Date:01/06/2023 10:00:00 AM Scheduled Provider:Kylie Beckwith Location:[facility] Appointment Type:SP Treatment Future Scheduled Tests Laboratory* Basic Metabolic Panel 12/02/22 Functional Status 01/05/23 Living Environment Home Environment No qualifying data available Other exposure to Infectious Disease Non e Immunizations Given and Recorded Vaccine Date Status Refusal Reason influenza virus vaccine, inactivated 1 08/02/22 Re corded SARS-CoV-2 mRNA (tozinameran 12y+) bival 2 08/02/22 Recorded 1Result Comment: RD done at [place] Lot: [id number] exp: 05/08/2023 Sanofi 2Result Comment: Lot: [id number] Exp: 06/08/23 LD done at [place] Medications Acidophilus Probiotic Blend 1 cap, Oral, Daily, 0 Refill(s) Start Date: 08/11/22 Status: Ordered Albuterol (Eqv-Proventil HFA) 90 mcg/inh inhalation aerosol 1 puffs, Inhale, every 4 hr, PRN as needed for wheezing, Do not exceed 12 inhalations in a 24-hour period., # 1 EA, 0 Refill(s), Pharmacy: [id number], 170, cm, 11/11/22 12:19:00 EST, Height/Length Dosing, 96, kg, 11/11/22 12:19:00 EST, Weight... Start Date: 11/25/22 Status: Ordered alendronate 70 mg oral tablet 70 mg = 1 tab, Oral, every week, typically takes on Thursday, # 12 tab, 0 Refill(s), Pharmacy: [facility], 114.09, cm, 08/12/22 16:18:00 EDT, [...] evening, # 90 tab, 3 Refill(s), Pharmacy: [facility],114.09, cm, 08/12/22 16:18:00 EDT, Height/Length [...] morning, # 90 tab, 3 Refill(s), Pharmacy: [facility],114.09, cm, 08/12/22 16:18:00 EDT, Height/Length Dosing, 165, kg, 08/12/22 16:18:00 EDT, Weight Dosing Start Date: 10/24/22 Stop Date: 10/19/23 Status: Ordered gabapentin 100 mg oral capsule 100 mg = 1 cap, Oral, BID, # 180 cap, 1 Refill(s), Pharmacy: [facility], 114.09,cm, 08/12/22 16:18:00 EDT, Height/Length [...] Daily, # 90 tab, 3 Refill(s), Pharmacy: [facility], 114.09, cm, 08/12/22 16:18:00 EDT, Height/Length Dosing, 165, kg, 08/12/22 16:18:00 EDT, Weight Dosing Start Date: 10/24/22 Stop Date: 10/19/23 Status: Ordered metFORMIN 500 mg oral tablet 500 mg = 1 tab, Oral, every evening, # 90 tab, 3 Refill(s), Pharmacy: [facility], 114.09, cm, 08/12/22 16:18:00 EDT, Height/Length Dosing, 165, kg, 08/12/22 16:18:00 EDT, Weight Dosing Start Date: 10/24/22 Stop Date: 10/19/23 Status: Ordered metoprolol tartrate 25 mg oral tablet 25 mg = 1 tab, Oral, BID, # 180 tab, 3 Refill(s), Pharmacy: [facility], 114.09, cm, 08/12/22 16:18:00 EDT, Height/Length Dosing, 165, kg, 08/12/22 16:18:00 EDT, Weight Dosing Start Date: 10/24/22 Stop Date: 10/19/23 Status: Ordered multivitamin adult, oral tablet 1 tab, Oral, Daily Start Date: 08/11/22 Status: Ordered predniSONE 20 mg oral tablet 20 mg = 1 tab, Oral, Daily, with food or milk, # 5 tab, 0 Refill(s), Pharmacy: [facility] #[id number],170, cm, 11/11/22 12:19:00 EST, Height/Length [...] Most recent to oldest [Reference Range]: 1 Apical Heart Rate [60-100 bpm] 76 bpm (01/05/23 10:44 AM) Blood Pressure [90-140/60-90 mmHg] 118/6 0mmHg (01/05/23 10:44 AM) Weight 95.71 kg (01/05/23 10:44 AM) Weight Measured (lbs) 211.004 lb (01/05/23 10:44 AM) [place] Body Weight Calculated 57 kg (01/05/23 10:44 AM) Height 165.10 cm (01/05/23 10:44 AM) Height/Length Measured (inches) 65 inch (01/05/23 10:44 AM) BSA Measured 2.1 m2 (01/05/23 10:44 AM) Body Mass Index 35.11 kg/m2 (01/05/23 10:44 AM) Social History Social History Type Response Tobacco Never tobacco user T obacco Use:. 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 Katlyn Peolpes DO 08/12/22 Non Biological Knee L Device Identifier Serial Number Lot or Batch Number Manufacturing Date Expiration Date Distinct Identification Code MRI Safety Implantable Status Assigning Authority Unknown NA [id number] Unknown 08/07/24 Unknown Unknown Active Unknown Unknown N/A [id number] 2 Unknown 06/10/32 Unknown Unknown Active Unknown Unknown NA [id number] 1 Unknown 04/01/27 Unknown Unknown Active Unknown Unknown N/A [id number] 2 Unknown 12/07/31 Unknown Unknown Active Unknown Unknown N/A [id number] 2 Unknown 12/15/26 Unknown Unknown Active Unknown Patient Care team information Care Team Personnel Name: Sanaz Annalisa LEATHER FITTER, Position: Physician Member Role: Nurse Practitioner Address: Address: [address] [place] [address] Name: Anabel Peoples APRN Position: Physician Member Role: Nurse Practitioner Address: Address: [address] [place] [address] Name: Mally Vazquez APRN Position: Physician Member Role: Primary Care Physician Address: Address: [address] [place] [address] Care Team Related Persons Name: LAURA LEON
--- OUTSIDE RECORDS SUMMARY | 2024-04-25 04:11 | XMS_ITS | Continuity of Care Document ---
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 br/min (08/21/22 7:23 AM) 20 br/min (08/21/22 4:20 AM) 18 br/min (08/20/22 11:50 PM) Blood Pressure [90-140/60-90 mmHg] 170/69mmHg *HI* (08/21/22 7:23 AM) 140/62mmHg (08/21/22 4:20 AM) 156/85mmHg *HI* (08/20/22 11:50 PM) Mean Arterial Pressure, Cuff [65-140 mmHg] 88 mmHg (08/21/22 4:20 AM) 109 mmHg (08/20/22 11:50 PM) 108 mmHg (08/20/22 9:37 PM) Mean Arterial Pressure Cuff 94 mmHg (08/20/22 8:05 AM) 96 mmHg (08/20/22 4:15 AM) 96 mmHg (08/19/22 8:21 PM) Blood Pressure Invasive [90-140/60-90 mmHg] 151/70mmHg *HI* (08/20/22 3:37 PM) Blood Pressure Location Left arm (08/21/22 4:20 AM) Left arm (08/14/22 9:00 AM) Left arm (08/14/22 8:00 AM) Blood Pressure Method Automatic (08/21/22 4:20 AM) Automatic (08/12/22 3:14 PM) Weight 165.000 kg (08/12/22 4:05 PM) 165.000 kg (08/12/22 3:19 PM) 105.230 kg (08/12/22 9:08 AM) Weight Dosing 165.000 kg (08/12/22 4:05 PM) 165.000 kg (08/12/22 3:19 PM) 105.230 kg (08/12/22 9:08 AM) Height 114.090 cm (08/12/22 4:05 PM) 114.090 cm (08/12/22 3:19 PM) 165.000 cm (08/12/22 9:08 AM) Height/Length Dosing 114.090 cm (08/12/22 4:05 PM) 114.090 cm (08/12/22 3:19 PM) 165.000 cm (08/12/22 9:08 AM) Body Mass Index 126.760 kg/m2 (08/12/22 4:05 PM) 126.760 kg/m2 (08/12/22 3:19 PM) 38.650 kg/m2 (08/12/22 9:08 AM) Social History Social History Type Response Tobacco Never tobacco user T obacco Use:. 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 Katlyn Peoples, DO 08/12/22 Non Biological Knee L Device Identifier Serial Number Lot or Batch Number Manufacturing Date Expiration Date Distinct Identification Code MRI Safety Implantable Status Assigning Authority Unknown NA [id number] Unknown 08/07/24 Unknown Unknown Active Unknown Unknown N/A [id number] 2 Unknown 06/10/32 Unknown Unknown Active Unknown Unknown NA [id number] 1 Unknown 04/01/27 Unknown Unknown Active Unknown Unknown N/A [id number] 2 Unknown 12/07/31 Unknown Unknown Active Unknown Unknown N/A [id number] 2 Unknown 12/15/26 Unknown Unknown Active Unknown Hospital Discharge Instructions Patient Education 08/21/2022 06:00:24 Total Knee Replacement, Care After Total Knee Replacement, Care After This sheet gives you information about how to care for yourself after your procedure. Your health care provider may also give you more specific instructions. If you have problems or questions, contact your health care provider. What can I expect after the procedure? After the procedure, it is common to have: ??? Redness, pain, and swelling at the incision area. ??? Stiffness. ??? Discomfort. ??? A small amount of blood or clear fluid coming from your incision. Follow these instructions at home: Medicines ??? Take fdcm-hps-ciesduu and prescription medicines only as told by your health care provider. ??? If you were prescribed a blood thinner (anticoagulant), take it as told by your health care provider. ??? Ask your health care provider if the medicine prescribed to you: ??? Requires you to avoid driving or using machinery. ??? Can cause constipation. You may need to take these actions to prevent or treat constipation: ??? Drink enough fluid to keep your urine pale yellow. ??? Take qylt-xdb-ysgpgno or prescription medicines. ??? Eat foods that are high in fiber, such as beans, whole grains, and fresh fruits and vegetables. ??? Limit foods that are high in fat and processed sugars, such as fried or sweet foods. Incision care ??? Follow instructions from your health care provider about how to take care of your incision. Make sure you: ??? Wash your hands with soap and water for at least 20 seconds before and after you change your bandage (dressing). If soap and water are not available, use hand field crew chief. ??? Change your dressing as told by your health care provider. ??? Leave stitches (sutures), marychuy, skin glue, or adhesive strips in place. These skin closures may need to stay in place for 2 weeks or longer. If adhesive strip edges start to loosen and curl up, you may trim the loose edges. Do not remove adhesive strips completely unless your health care provider tells you to do that. ??? Do not take baths, swim, or use a hot tub until your health care provider approves. ??? Check your incision area every day for signs of infection. Check for: ??? More redness, swelling, or pain. ??? More fluid or blood. ??? Warmth. ??? Pus or a bad smell. Activity ??? Rest as told by your health care provider. ??? Avoid sitting for a long time without moving. Get up to take short walks every 1???2 hours. This is important to improve blood flow and breathing. Ask for help if you feel weak or unsteady. ??? Follow instructions from your health care provider about using a walker, crutches, or a cane. ??? You may use your legs to support (bear) your body weight as told by your health care provider. Follow instructions about how much weight you may safely support on your affected leg (weight-bearing restrictions). ??? A physical therapist may show you how to get out of a bed and chair and how to go up and down stairs. You will first do this with a walker, crutches, or a cane and then without any of these devices. ??? Once you are able to walk without a limp, you may stop using a walker, crutches, or a cane. ??? Do exercises as told by your health care provider or physical therapist. ??? Avoid high-impact activities, including running, jumping rope, and doing jumping jacks. ??? Do not play contact sports until your health care provider approves. ??? Return to your normal activities as told by your health care provider. Ask your health care provider what activities are safe for you. Managing pain, stiffness, and swelling ??? If directed, put ice on your knee. To do this: ??? Put ice in a plastic bag or use the icing device (cold flow pad) that you were given. Follow instructions from your health care provider about how to use the icing device. ??? Place a towel between your skin and the bag or between your skin and the icing device. ??? Leave the ice on for 20 minutes, 2???3 times a day. ??? Remove the ice if your skin turns bright red. This is very important. If you cannot feel pain, heat, or cold, you have a greater risk of damage to the area. ??? Move your toes often to reduce stiffness and swelling. ??? Raise (elevate) your leg above the level of your heart while you are sitting or lying down. ??? Use several pillows to keep your leg straight. ??? Do not put a pillow just under the knee. If the knee is bent for a long time, this may lead to stiffness. ??? Wear elastic knee support as told by your health care provider. Safety ??? To help prevent falls, keep floors clear of objects you may trip over. Place items that you mayneed within easy reach. ??? Wear an apron or tool belt with pockets for carrying objects. This leaves your hands free to help with your balance. ??? Ask your health care provider when it is safe to drive. General instructions ??? Wear compression stockings as told by your health care provider. These stockings help to prevent blood clots and reduce swelling in your legs. ??? Continue with breathing exercises. This helps prevent lung infection. ??? Do not use any products that contain nicotine or tobacco. These products include cigarettes, chewing tobacco, and vaping devices, such as e-cigarettes. These can delay healing after surgery. If you need help quitting, ask your health care provider. ??? Tell your health care provider if you plan to have dental work. Also: ??? Tell your dentist about your joint replacement. ??? Ask your health care provider if there are any special instructions you need to follow before having dental care and routine cleanings. ??? Keep all follow-up visits. This is important. Contact a health care provider if: ??? You have a fever or chills. ??? You have a cough or feel short of breath. ??? Your medicine is not controlling your pain. ??? You have any of these signs of infection: ??? More redness, swelling, or pain around your incision. ??? More fluid or blood coming from your incision. ??? Warmth coming from your incision. ??? Pus or a bad smell coming from your incision. ??? You fall. Get help right away if: ??? You have severe pain. ??? You have trouble breathing. ??? You have chest pain. ??? You have redness, swelling, pain, or warmth in your calf or leg. ??? Your incision breaks open after sutures or marychuy are removed. These symptoms may represent a serious problem that is an emergency. Do not wait to see if the symptoms will go away. Get medical help right away. Call your local emergency services (911 in the [place] Do not drive yourself to the hospital. Summary ??? After the procedure, it is common to have pain and swelling at the incision area, a small amount of blood or fluid coming from your incision, and stiffness. ??? Follow instructions from your health care provider about how to take care of your incision. ??? Use crutches, a walker, or a cane as told by your health care provider. This information is not intended to replace advice given to you by your health care provider. Make sure you discuss any questions you have with your health care provider. Document Revised: 04/16/2021 Document Reviewed: 04/16/2021 [employer] Patient Education ?? 2021 [employer]. 08/21/2022 06:00:24 Total Knee Replacement, Care After Total Knee Replacement, Care After This sheet gives you information about how to care for yourself after your procedure. Your health care provider may also give you more specific instructions. If you have problems or questions, contact your health care provider. What can I expect after the procedure? After the procedure, it is common to have: ??? Redness, pain, and swelling at the incision area. ??? Stiffness. ??? Discomfort. ??? A small amount of blood or clear fluid coming from your incision. Follow these instructions at home: Medicines ??? Take wkgk-zee-klvvhjm and prescription medicines only as told by your health care provider. ??? If you were prescribed a blood thinner (anticoagulant), take it as told by your health care provider. ??? Ask your health care provider if the medicine prescribed to you: ??? Requires you to avoid driving or using machinery. ??? Can cause constipation. You may need to take these actions to prevent or treat constipation: ??? Drink enough fluid to keep your urine pale yellow. ??? Take boaz-sll-rtkjaaz or prescription medicines. ??? Eat foods that are high in fiber, such as beans, whole grains, and fresh fruits and vegetables. ??? Limit foods that are high in fat and processed sugars, such as fried or sweet foods. Incision care ??? Follow instructions from your health care provider about how to take care of your incision. Make sure you: ??? Wash your hands with soap and water for at least 20 seconds before and after you change your bandage (dressing). If soap and water are not available, use hand field crew chief. ??? Change your dressing as told by your health care provider. ??? Leave stitches (sutures), marychuy, skin glue, or adhesive strips in place. These skin closures may need to stay in place for 2 weeks or longer. If adhesive strip edges start to loosen and curl up, you may trim the loose edges. Do not remove adhesive strips completely unless your health care provider tells you to do that. ??? Do not take baths, swim, or use a hot tub until your health care provider approves. ??? Check your incision area every day for signs of infection. Check for: ??? More redness, swelling, or pain. ??? More fluid or blood. ??? Warmth. ??? Pus or a bad smell. Activity ??? Rest as told by your health care provider. ??? Avoid sitting for a long time without moving. Get up to take short walks every 1???2 hours. This is important to improve blood flow and breathing. Ask for help if you feel weak or unsteady. ??? Follow instructions from your health care provider about using a walker, crutches, or a cane. ??? You may use your legs to support (bear) your body weight as told by your health care provider. Follow instructions about how much weight you may safely support on your affected leg (weight-bearing restrictions). ??? A physical therapist may show you how to get out of a bed and chair and how to go up and down stairs. You will first do this with a walker, crutches, or a cane and then without any of these devices. ??? Once you are able to walk without a limp, you may stop using a walker, crutches, or a cane. ??? Do exercises as told by your health care provider or physical therapist. ??? Avoid high-impact activities, including running, jumping rope, and doing jumping jacks. ??? Do not play contact sports until your health care provider approves. ??? Return to your normal activities as told by your health care provider. Ask your health care provider what activities are safe for you. Managing pain, stiffness, and swelling ??? If directed, put ice on your knee. To do this: ??? Put ice in a plastic bag or use the icing device (cold flow pad) that you were given. Follow instructions from your health care provider about how to use the icing device. ??? Place a towel between your skin and the bag or between your skin and the icing device. ??? Leave the ice on for 20 minutes, 2???3 times a day. ??? Remove the ice if your skin turns bright red. This is very important. If you cannot feel pain, heat, or cold, you have a greater risk of damage to the area. ??? Move your toes often to reduce stiffness and swelling. ??? Raise (elevate) your leg above the level of your heart while you are sitting or lying down. ??? Use several pillows to keep your leg straight. ??? Do not put a pillow just under the knee. If the knee is bent for a long time, this may lead to stiffness. ??? Wear elastic knee support as told by your health care provider. Safety ??? To help prevent falls, keep floors clear of objects you may trip over. Place items that you mayneed within easy reach. ??? Wear an apron or tool belt with pockets for carrying objects. This leaves your hands free to help with your balance. ??? Ask your health care provider when it is safe to drive. General instructions ??? Wear compression stockings as told by your health care provider. These stockings help to prevent blood clots and reduce swelling in your legs. ??? Continue with breathing exercises. This helps prevent lung infection. ??? Do not use any products that contain nicotine or tobacco. These products include cigarettes, chewing tobacco, and vaping devices, such as e-cigarettes. These can delay healing after surgery. If you need help quitting, ask your health care provider. ??? Tell your health care provider if you plan to have dental work. Also: ??? Tell your dentist about your joint replacement. ??? Ask your health care provider if there are any special instructions you need to follow before having dental care and routine cleanings. ??? Keep all follow-up visits. This is important. Contact a health care provider if: ??? You have a fever or chills. ??? You have a cough or feel short of breath. ??? Your medicine is not controlling your pain. ??? You have any of these signs of infection: ??? More redness, swelling, or pain around your incision. ??? More fluid or blood coming from your incision. ??? Warmth coming from your incision. ??? Pus or a bad smell coming from your incision. ??? You fall. Get help right away if: ??? You have severe pain. ??? You have trouble breathing. ??? You have chest pain. ??? You have redness, swelling, pain, or warmth in your calf or leg. ??? Your incision breaks open after sutures or marychuy are removed. These symptoms may represent a serious problem that is an emergency. Do not wait to see if the symptoms will go away. Get medical help right away. Call your local emergency services (911 in the [place] Do not drive yourself to the hospital. Summary ??? After the procedure, it is common to have pain and swelling at the incision area, a small amount of blood or fluid coming from your incision, and stiffness. ??? Follow instructions from your health care provider about how to take care of your incision. ??? Use crutches, a walker, or a cane as told by your health care provider. This information is not intended to replace advice given to you by your health care provider. Make sure you discuss any questions you have with your health care provider. Document Revised: 04/16/2021 Document Reviewed: 04/16/2021 [employer] Patient Education ?? 2021 [employer]. Follow Up Care 08/08/2022 07:28:10 With:Anabel Peoples APRN Address: [address] [place] [address]- When:1 month Comments:see [place] [facility] sheet for appt-can push it out a week if needed since she was here for one week XR Knee - left 3 Views * Kishore Parra MD: VERIFY, VERIFY Event Display: Report EXAM DESCRIPTION: XR Knee 3 Views Left 08/12/2022 INDICATION: S/P LEFT TKA COMPARISON: 01/31/2022 IMPRESSION: Status post left total knee arthroplasty with satisfactory postoperative appearance. Regional soft tissue and intra-articular air consistent with recent postoperative state. JOB #: [id number] Final Signed by: Kishore Parra MD Signed (Electronic Signature): 08/12/2022 3:55 pm CTA Chest vessels W contrast IV * Kishore Parra MD: VERIFY, VERIFY Event Display: Report EXAM DESCRIPTION: CT Angio Chest 08/15/2022 INDICATION: EVAL FOR PE TECHNIQUE: All CT scans at this facility use at least one of these dose optimization techniques: Automated exposure control; mA and/or kV adjustment per patient size (includes targeted exams where dose is matched to clinical indication); or iterative reconstruction. CT angiography examination of the chest with thin section axial images including sagittal and coronal MPR images performed on a separate workstation under concurrent supervision. 100 cc of Isovue 370 contrast was utilized COMPARISON: CT chest with contrast from 06/06/2019 FINDINGS: Patient respiratory motion artifact limits evaluation, especially of peripheral pulmonary artery branches. Normal opacification of the right ventricular outflow tract, main pulmonary arteries and proximal segmental pulmonary arteries with no evidence of significant central pulmonary embolism. Tiny pleural-based nodular opacity in the posterior aspect of the left lower lobe on image number 67 without significant change from prior study consistent with benign etiology. No focal infiltrate or pulmonary mass. No pleural effusion or pneumothorax No mediastinal, hilar or axillary adenopathy. No pericardial effusion. Normal caliber thoracic aorta with atherosclerotic calcifications. Prosthetic aortic valve. No suspicious regional osseous lesions. IMPRESSION: No evidence of significant central pulmonary embolism. Patient respiratory motion artifact significantly limits evaluation of peripheral pulmonary artery branches. No focal infiltrate or pulmonary mass. No mediastinal, hilar or axillary adenopathy. JOB #: [id number] Final Signed by: Kishore Parra MD Signed (Electronic Signature): 08/15/2022 2:[address] Abdomen and Pelvis W contrast IV * Kishore Parra MD: VERIFY, VERIFY Event Display: Report EXAM DESCRIPTION: CT Abdomen and Pelvis w/ Contrast 08/15/2022 INDICATION: R UPPER ABD PAIN TECHNIQUE: All CT scans at this facility use at least one of these dose optimization techniques: Automated exposure control; mA and/or kV adjustment per patient size (includes targeted exams where dose is matched to clinical indication); or iterative reconstruction. Technique: Axial CT images of the abdomen/pelvis with IV contrast administration 100 cc of Isovue 370 contrast was utilized Patient motion artifact limits evaluation COMPARISON: 06/06/2019 FINDINGS: Small low-attenuation lesion in the medial segment of the left hepatic lobe without significant change from prior study consistent with benign etiology, likely small cyst. No additional focal hepatic lesion. Normal enhancement of the main hepatic veins and main portal vein. Normal spleen size without focal mass Calcified gallstone in the gallbladder which was seen previously. Adrenal glands and pancreas appear within normal limits. Small low-attenuation lesions involving the medial aspect of the mid right kidney and mid left kidney without significant change from prior study consistent with benign etiology, likely cysts. Stable irregularity involving the upper pole of the left kidney most consistent with scarring. No solid renal mass, hydronephrosis or perinephric fluid collection on either side Normal caliber abdominal aorta with atherosclerotic calcifications. No retroperitoneal adenopathy in the abdomen or pelvis. No pelvic mass identified No bowel dilatation to suggest obstruction or ileus. No free intraperitoneal air, ascites or inflammatory changes. Normal appendix. No suspicious regional osseous lesions. IMPRESSION: No acute findings in the abdomen or pelvis. Calcified gallstone in the gallbladder which was described on remote study. Nonacute findings as detailed above. JOB #: [id number] Final Signed by: Kishore Parra MD Signed (Electronic Signature): 08/15/2022 2:[address] Head WO and W contrast IV * Kishore Parra MD: VERIFY, VERIFY Event Display: Report EXAM DESCRIPTION: CT Head w/ + w/o Contrast 08/15/2022 INDICATION: CONTINUED AMS TECHNIQUE: All CT scans at this facility use at least one of these dose optimization techniques: Automated exposure control; mA and/or kV adjustment per patient size (includes targeted exams where dose is matched to clinical indication); or iterative reconstruction. Axial CT images of the head without and with contrast. 100 cc of Isovue 370 contrast was utilized COMPARISON: Unenhanced CT examination of the head from 08/14/2022 FINDINGS: No acute intracranial hemorrhage, mass effect or midline shift. No hydrocephalus. [place]iza-white differentiation is maintained. Basal cisterns remain patent Small ovoid hyperattenuating nodular lesion along the inferior aspect of the right tentorium measuring approximately 8 mm in diameter which demonstrates diffuse enhancement. Imaging findings are most consistent with small meningioma. No regional mass effect. This was described on recent CT examination. No significant change from prior MRI head examination from 12/29/2013. Postcontrast images otherwise demonstrate no abnormal enhancement. The calvarium appears intact. The visualized paranasal sinuses are grossly clear. IMPRESSION: No acute intracranial hemorrhage, mass effect or midline shift. Small enhancing extra-axial lesion along the inferior aspect of the right tentorium consistent with meningioma measuring approximately 8 mm in diameter. No significant change from remote MRI head examination dated 12/29/2013. JOB #: [id number] Final Signed by: Kishore Parra MD Signed (Electronic Signature): 08/15/2022 2:[address] Head WO contrast * [employer], Generated: VERIFY, VERIFY Event Display: Report PROCEDURE INFORMATION: Exam: CT Head Without Contrast Exam date and time: 08/14/2022 7:06 AM Age: 77 years old Clinical indication: Stroke-like symptoms; Altered mental status/memory loss TECHNIQUE: Imaging protocol: Computed tomography of the head without contrast. Radiation optimization: All CT scans at this facility use at least one of these dose optimization techniques: automated exposure control; mA and/or kV adjustment per patient size (includes targeted exams where dose is matched to clinical indication); or iterative reconstruction. Other technique: STROKE PROTOCOL was implemented. COMPARISON: CT NECK W CONTRAST 06/05/2019 4:39 PM FINDINGS: Brain: There is a partially calcified 6 mm nodule at the inferior surface of the right tentorium on coronal image 52 suspicious for meningioma which is not included in the CT of the neck on 06/05/2019. Benign bilateral globus pallidus calcifications are present. Cerebral ventricles: No ventriculomegaly. Paranasal sinuses: Visualized sinuses are unremarkable. No fluid levels. Mastoid air cells: Visualized mastoid air cells are well aerated. 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 Soft tissues: Unremarkable. Vasculature: The vasculature demonstrates diffuse moderate atherosclerotic calcification. IMPRESSION: 1. There is a partially calcified 6 mm nodule at the inferior surface of the right tentorium on coronal image 52 suspicious for meningioma which is not included in the CT of the neck on 06/05/2019. 2. No evidence of an acute abnormality. 3. 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 ASSESSMENT: ASPECTS ([place] Stroke Program Early CT Score) is 10. THIS DOCUMENT HAS BEEN ELECTRONICALLY SIGNED BY RADHA FRAGA MD on 08/14/2022 07:29 AM Final Signed by: Farrah Trevino Signed (Electronic Signature): 08/14/2022 7:29 am XR Chest Single view * Kishore Parra MD: VERIFY, VERIFY Event Display: Report EXAM DESCRIPTION: XR Chest 1 View 08/14/2022 INDICATION: AMS COMPARISON: 06/05/2019 IMPRESSION: Fullness in the right hilar region. Mass or adenopathy in this region can not be excluded and CT correlation is recommended. Mild subsegmental atelectasis or scarring in the right upper lung field. Lungs otherwise clear with no consolidation or pulmonary edema Mild cardiomegaly with previous median sternotomy and valve replacement. No significant pleural effusion or pneumothorax. JOB #: [id number] Final Signed by: Kishore Parra MD Signed (Electronic Signature): 08/14/2022 9:44 am Patient Care team information Personnel Name: Belgica Farr MD Address: Address: [facility] [address] [place] [id number]
--- OUTSIDE RECORDS SUMMARY | 2024-04-25 04:12 | XMS_ITS | Patient Health Record ---
Author Name Unknown [facility] Address [address] [place] [address] Care Team Providers Care Hydrometeorologist Name Role Phone MARIAELENA BRUSH DO Primary Care Provider Masha Hector Unavailable [phone] ALLERGIES Allergen (clinical drug ingredient) Drug/Non Drug Allergy documented on EMR Reaction Allergy Type Onset Date Status Substance with sulfonamide structure and antibacterial mechanism of action (substance) Sulfa (uncoded) Unknown Allergy Active morphine Morphine Sulfate Unknown Drug Allergy Active warfarin Warfarin Sodium Unknown Drug Allergy A ctive REASON FOR REFERRAL No Information MEDICATIONS Medication SIG (Take, Route, Frequency, Duration) Notes Start Date End Date Status metFORMIN HCl 500 mg 1 tab(s) orally once a day at bedtime Active CALCIUM 600+D 600 mg-200 units 1 tab(s) orally 3 times a day for 30 day(s) STOP*please review for potential _update for e-prescription and drug interaction check* Active LANSOPRAZOLE 30 mg 1 tab(s) orally once a day for 30 day(s) STOP*please review for potential _update for e-prescription and drug interaction check* Active Metoprolol Tartrate 100 mg 1 tab(s) orally 1 tab in AM, 1/2 tab in PM Active ALBUTEROL 90 mcg/inh 2 puff(s) inhaled 4 times a day for 30 day(s) STOP*please review for potential _update for e-prescription and drug interaction check* Active Co Q-10 100 mg 1 cap(s) orally once a day for 30 day(s) Active Aspirin 81 mg 1 tab(s) orally once a day for 30 day(s) Active Diclofenac Sodium 1% small amount applied topically 4 times a day for 30 day(s) 11/23/2018 Active Atorvastatin Calcium 10 mg 1 tab(s) orally once a day for 30 day(s) Active Levothyroxine Sodium 150 mcg (0.15 mg) 1 tab(s) orally once a day for 30 day(s) Active SOCIAL HISTORY Tobacco Use: Social History Observation Description Date Details (start date - stop date) Never Smoker NA - NA Sex Assigned At : Social History Observation Description Sex Assigned At Unknown SMOKING Question Answer Notes Are you a: nonsmoker PROBLEMS Problem Type ICD Code Onset Dates Problem Status W/U Status Risk SNOMED Code Notes Problem Type 2 diabetes mellitus (E11.9) Active confirmed Type 2 diabetes mellitus (28409209) Problem Right foot pain (M79.671) Active confirmed Pain in right foot (8192708975372 07) Problem Callus of foot (L84) Active confirmed Foot callus (498777349) Problem Varicose veins (I86.8) Active confirmed Varicose veins (036253743) Problem Edema of lower extremity (R60.0) Active confirmed Edema of lower extremity (627020070) Problem Hammertoe of right foot (M20.41) Active confirmed Acquired hammer toe of right foot (7583143864295 105) PLAN OF TREATMENT No Information Insurance Providers Payer Name Payer Address Payer Phone Subscriber Number Group Number Insured Name Patient Relationship to Insured Coverage Start Date Coverage End Date [employer] [address] [place] [address] [id number] [employer] Self - patient is the insured SELF PAY AFTER [place] [address] [address] [employer] Self - patient is the insured MEDICAL (GENERAL) HISTORY Medical History History ICD Code HTN Acid Reflux Heart Problem (regurgitating heart) IBT DM type 2 Vericose veins Peripheral Tinea pedis 110.4 Pes planovalgus 754.69 Surgical History Surgery Date(Month/Year) Hysterectomy Hospitalization History Reason Date(Month/Year) IPT x 2
--- OUTSIDE RECORDS SUMMARY | 2024-04-25 04:12 | XMS_ITS | Encounter Summary ---
Author Name Unknown Organization [facility] Address [address] [place] [address] Encounter Details Date Type Department Care Team Description 2024-01-13 Telephone [facility] [address] [place] [address] Mail Vendor DFS A Medication Reconciliation was successfully completed by the [facility]. ASSESSMENT No Information TREATMENT PLAN No Information
[2024-04-25] MEDS: Omnipaque 350 MG/ML 50 ML BTL PO (07:20)
[2024-04-25] MEDS: Breeza Beverage 473 ML BTL PO (07:20)
[2024-04-25 07:44] LABS: CREATININE 1.3 mg/dL (0.55-1.02); Estimated GFR 41.83 (mL/min/1.73m2)
[2024-04-25] MEDS: Normal Saline - Diluent 50 ML VIAL IJ (08:31)
[2024-04-25] MEDS: Omnipaque 350 MG/ML 500 ML BTL-Imaging package 80 ML IJ (08:33)
--- NOTE | 2024-04-25 08:34 | DI.CT_ITS ---
Exam(s) CT ABDOMEN W EXAM: CT ABDOMEN W CLINICAL HISTORY: H/O BREAST CA,1 CM HYPODENSITY DOME OF LIVER,R16.0 TECHNIQUE: Imaging Protocol: Axial computed tomography images with coronal and sagittal reformatted images were created and reviewed CONTRAST MATERIAL: Intravenous: Omnipaque 350 Contrast volume:80 mL contrast route:IV - Oral: yes / COMPARISON: CT CT ANGIOGRAM ABDOMEN AND PELVIS W CONTRAST (GENERIC) from 02/07/[address] HEART FUNC (NON-CORONARY) W from 02/07/[address] RAD ONC CHEST INTER from 07/07/[address] RAD ONC CHEST INTER from 08/04/[address] CHEST WO from 09/22/[address] CHEST WO CONTRAST from 12/02/[address] CHEST WO from 04/11/2024 FINDINGS: ABDOMEN: Exam is limited by patient body habitus. There is some streak artifact through the liver and spleen. Lung Bases: Normal where visualized. Liver: Normal density. 10 millimeter cyst anterior right lobe. 7 millimeter hypodensity near the adria phragm, also likely representing a cyst. Previous examinations were noncontrast in the lesions were not well visualized. Gallbladder and biliary tract: Large gallstone again noted. Pancreas: Normal density, no abnormal calcifications or inflammatory process. Pancreas somewhat atr ophic. Spleen: Normal. Kidneys: Scarring and atrophy at the upper pole of the right kidney. No radiodense stones or obstruc tive uropathy. No masses seen. Adrenal glands: No masses seen. Abdominal Aorta: Abdominal portion non-dilated. Atherosclerotic changes. Lymph nodes: Within normal limits. Bowel: No wall thickening or evidence of obstruction. Appendix normal. Stomach unremarkable as visu alized. Bones: Unremarkable for age. IMPRESSION: Small hypodensities in the liver likely represent cysts. No acute abnormality in the abdomen. RADIATION DOSE DELIVERED: Total DLP DATA REPOSITORY: All CT scans at this facility are submitted to the National Radiology Data Registry (NRDR) Dose Index Registry (DIR) with the [employer] (ACR). RADIATION OPTIMIZATION: All CT scans at this facility use at least one of these dose optimization te chniques: automated exposure control; mA and/or kV adjustment per patient size (includes targeted exa ms where dose is matched to clinical indication); or iterative reconstruction.
== END ==
PROVIDERS: PCP Registered Nurse Critical Care Medicine; Visit Provider Radiology Radiation Oncology
DX: R16.0 Hepatomegaly, not elsewhere classified (principal)
CPT/HCPCS: 74160; 82565; Q9967

== ENCOUNTER 2024-04-25 08:46 | Emergency (ER) | payer MEDICARE, SELFPAY ==
[2024-04-25 08:48] VITALS: BP 143/62; PULSE 101; RESP 14; TEMP 36.5; O2SAT 96
[2024-04-25 08:56] VITALS: BP 143/62; PULSE 101; RESP 14; TEMP 36.5; O2SAT 96
--- NOTE | 2024-04-25 09:04 | ED.GENADUL_ITS ---
Discharge Plan Disposition Patient Disposition: Home Condition: Stable Discharge Details Clinical Impression: Lumbar back pain Primary Care Provider: Mally Vazquez ED Provider: David Quevedo Home Meds and New Rx's Prescriptions: Continued furosemide 40 mg tablet 40 mg PO DAILY lansoprazole 30 mg capsule,delayed release(DR/EC) 30 mg PO DAILY magnesium oxide,aspartate,citr 400 mg magnesium capsule PO DAILY cholecalciferol (vitamin D3) 125 mcg (5,000 unit) capsule 125 mcg PO DAILY losartan 50 mg tablet 50 mg PO DAILY polyethylene glycol 3350 [Miralax] 17 gram/dose powder 17 g PO DAILY aspirin 81 mg capsule 81 mg PO DAILY coenzyme Q10 [CoQ-10] 100 mg capsule 100 mg PO DAILY Lactobacillus combo no.23 [Job Probiotic] 1 cap PO DAILY PRN PRN alendronate 70 mg tablet 70 mg PO DAILY metformin 500 mg tablet 500 mg PO DAILY metoprolol tartrate 100 mg tablet 100 mg PO DAILY gabapentin 100 mg capsule 100 mg PO TID citalopram 20 mg tablet 20 mg PO DAILY atorvastatin 10 mg tablet 10 mg PO DAILY levothyroxine 137 mcg capsule 137 mcg PO DAILY lansoprazole 30 mg capsule,delayed release(DR/EC) 30 mg PO DAILY acetaminophen 325 mg capsule 325 mg PO Q6H PRN calcium carbonate [Calcium 600] 600 mg calcium (1,500 mg) tablet 600 mg PO DAILY docusate sodium 100 mg tablet 100 mg PO BID PRN ipratropium-albuterol 0.5 mg-3 mg(2.5 mg base)/3 mL solution for nebulization 3 ml inhalation Q4H PRN multivitamin Tablet 1 tab PO DAILY Discharge Instructions Additional Instructions: ED take 1000 mg of Tylenol every 6 hours as needed. Do not exceed 3000 mg in a 24-hour period Follow-up with your primary care provider within 1 week you can also use over the counter lidocaine patches If you feel more ill or have new symptoms such as persistent vomiting or high fevers return to the emergency department for reevaluation HPI General Mode of arrival: ambulatory . Date/Time Provider Initiated Documentation: 04/25/24 08:46 . Limitations to Documentation: no limitations . Information obtained by: patient . History of Present Illness 79 year old F presents to the emergency department with the chief complaint of left lower back pain, described as moderate, Quality is described as aching, Patient started experiencing this day(s) (2) and it has been constant. No relieving factors improve symptom(s), No exacerbating factors reported . Patient notes no other symptoms.. Patient did receive the following treatments prior to arrival, none Related Data Home Medications Medication Instructions Recorded Confirmed Lactobacillus combo no.23 1 cap PO DAILY PRN PRN 09/26/22 04/25/24 acetaminophen 325 mg capsule 325 mg PO Q6H PRN 09/26/22 04/25/24 alendronate 70 mg tablet 70 mg PO DAILY 09/26/22 04/25/24 aspirin 81 mg capsule 81 mg PO DAILY 09/26/22 04/25/24 atorvastatin 10 mg tablet 10 mg PO DAILY 09/26/22 04/25/24 calcium carbonate (Calcium 600) 600 mg PO DAILY 09/26/22 04/25/24 cholecalciferol (vitamin D3) 125 125 mcg PO DAILY 09/26/22 04/25/24 mcg (5,000 unit) capsule citalopram 20 mg tablet 20 mg PO DAILY 09/26/22 04/25/24 coenzyme Q10 100 mg capsule 100 mg PO DAILY 09/26/22 04/25/24 (CoQ-10) docusate sodium 100 mg tablet 100 mg PO BID PRN 09/26/22 04/25/24 furosemide 40 mg tablet 40 mg PO DAILY 09/26/22 04/25/24 gabapentin 100 mg capsule 100 mg PO TID 09/26/22 04/25/24 ipratropium 0.5 mg-albuterol 3 mg 3 ml inhalation Q4H PRN 09/26/22 04/25/24 (2.5 mg base)/3 mL nebulization soln lansoprazole 30 mg capsule,delayed 30 mg PO DAILY 09/26/22 04/25/24 release lansoprazole 30 mg capsule,delayed 30 mg PO DAILY 09/26/22 04/25/24 release levothyroxine 137 mcg capsule 137 mcg PO DAILY 09/26/22 04/25/24 losartan 50 mg tablet 50 mg PO DAILY 09/26/22 04/25/24 magnesium oxide,aspartate,citr mg PO DAILY 09/26/22 12/10/22 metformin 500 mg tablet 500 mg PO DAILY 09/26/22 04/25/24 metoprolol tartrate 100 mg tablet 100 mg PO DAILY 09/26/22 04/25/24 multivitamin 1 tab PO DAILY 09/26/22 04/25/24 polyethylene glycol 3350 17 17 g PO DAILY 09/26/22 04/25/24 gram/dose oral powder (Miralax) Allergies Allergy/AdvReac Type Severity Reaction Status Date / Time Sulfa (Sulfonamide Allergy Skin Rash Verified 04/25/24 08:54 Antibiotics) tamsulosin [From Flomax] Allergy Dizziness/L Verified 04/25/24 08:54 ighthead General Stated Complaint: GenMedical MYRNA: 3 Review of Systems All systems reviewed & are unremarkable except as noted in HPI and below Constitutional Constitutional: Denies chills, Denies fever(s) and Denies weakness Cardiovascular Cardiovascular: Denies chest pain and Denies dyspnea Respiratory Respiratory: Denies cough and Denies dyspnea Gastrointestinal Gastrointestinal: Denies abdominal pain, Denies nausea and Denies vomiting Musculoskeletal Musculoskeletal: Denies joint swelling Neurologic Neurologic: Denies weakness Exam Const General: no acute distress Orientation: alert HENMT Head: normal to inspection Ears: external ears normal General nose exam: external nose normal Mouth: moist mucous membranes Eyes General: appearance normal, both eyes and all related structures Neck Neck: normal visual inspection Resp Effort & Inspection: normal respiratory effort and able to speak in complete sentences Cardio Rate: regular rate GI Palpation: soft and nontender Back/Spine/Pelvis Back: no CVA tenderness Skin General skin exam: no rashes or lesions noted Neuro General: patient alert and patient oriented x3 Extrem General: normal to inspection Psych Mental Status: mental status grossly normal Course Vital Signs Vital signs: Vital Signs Temperature 36.5 C 04/25/24 08:48 Pulse 101 H 04/25/24 08:48 Respiratory Rate 14 04/25/24 08:48 Blood Pressure 143/62 H 04/25/24 08:48 Pulse Oximetry 96 04/25/24 08:48 Temperature 36.5 C 04/25/24 08:56 Temperature Source Temporal Artery Scan 04/25/24 08:56 Pulse 101 H 04/25/24 08:56 Respiratory Rate 14 04/25/24 08:56 Respiratory Effort Normal, Non-Labored 04/25/24 08:58 Respiratory Depth Normal 04/25/24 08:58 Respiratory Pattern Normal 04/25/24 08:58 Blood Pressure 143/62 H 04/25/24 08:56 Blood Pressure Position Supine 04/25/24 08:56 Pulse Oximetry 96 04/25/24 08:56 Oxygen Delivery Method Room Air 04/25/24 08:56 Oxygen Flow Rate 0 04/25/24 08:56 Pain Level 5 04/25/24 08:56 Medical Decision Making 79-year-old female with a history of CKD, hypertension who comes in with nontraumatic left lower back pain since Thursday. She says she woke up with the symptoms and had an outpatient CT done but was having pain afterwards so came here for evaluation. Results of CT are not currently available. She states that bending forward makes her pain worse. Denies any fevers, chills, abdominal pain, vomiting. She is alert and ambulatory on arrival. She localizes it to the left lower lumbar region. There is no palpable or visible deformities, no erythema or warmth, no saddle anesthesia and intact distal sensation and pulses. Suspect musculoskeletal back pain, will check a CBC, CMP UA lipase and review results of CT when available. She has no findings on exam or history to suggest cauda equina or spinal epidural abscess. She has no midline back pain so doubt compression fracture Labs without significant emergent findings, CT without acute findings, had a CT to evaluate for liver lesions which are likely cysts. No evidence of hydronephrosis. Patient stable and feels much better. Awaiting UA. Patient asymptomatic, UA unremarkable, patient is stable for discharge advised to follow-up with her PCP and return precautions given Differential Diagnosis Differential Diagnosis: Musculoskeletal back pain, compression fracture Lab Data Lab results reviewed: Yes I reviewed the patient's lab results. 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) Medical History Acquired hypothyroidism Altered bowel habits Amaurosis fugax Anemia, hemolytic Aortic valve stenosis, mild Arthritis of right acromioclavicular joint Asthma Autoimmune hemolytic anemia CAD (coronary artery disease) Cardiomyopathy, dilated Carotid artery aneurysm Cholecystitis, chronic Cholelithiases Colon arteriovenous malformation Cystocele, midline Depression with anxiety Diabetic polyneuropathy 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 H/O vocal cord paralysis History of ITP Hodgkins disease HTN (hypertension) Hx of Hodgkin's disease Hx of varicose veins of lower extremity Hyperlipidemia Hypertriglyceridemia Hypothyroidism Lymphedema Mild stress incontinence Mitral regurgitation Mitral valve disorder Muscle cramps Neuropathy NHL (non-Hodgkin's lymphoma) Nocturnal hypoxemia KWAKU (obstructive sleep apnea) Osteoarthritis Peripheral vascular disease Pharyngoesophageal dysphagia Presbylarynges Reactive depression Social isolation Thrombocytopenia Type 2 diabetes mellitus Varicose vein of leg Varicose veins of both legs with edema Vitamin D deficiency Xerostomia Surgical History H/O aortic valve replacement 02/2021 H/O colonoscopy H/O left knee surgery H/O valvuloplasty mitral and tricuspid, [facility] 06/2014 History of bilateral tubal ligation History of esophagogastroduodenoscopy (EGD) 05/24/2010 History of liver biopsy 05/02/2014 History of lung biopsy R lung using fluroscopic guidance, 04/2014 S/P ALEJO-BSO fibroids-12/03/1993 Family History Father Heart disease Mother , d.80 Breast cancer CHF (congestive heart failure) H/O mastectomy Son Cancer of tongue Metastatic cancer to brain Cancer of neck Maternal Aunt Breast cancer H/O mastectomy Social History Smoking/Tobacco Use Status: Never Smoking risk assessment performed?: Yes Alcohol Intake: never Drug use: Never Substance use type: does not use Household members: none Number of Children: 3 What is your relationship status?: Panel score (0-1 are the most socially isolated patients): 0 Do you feel safe at home: Yes Do you feel safe in your relationship?: Yes
[2024-04-25] MEDS: Normal Saline 1,000 ML 1000 ML IV (09:20)
[2024-04-25] MEDS: ACETAMINOPHEN 1,000 MG/100 ML BTL 400 MG IVPB (09:20)
[2024-04-25 09:21] LABS: Abs Immature Grans 0.02 10^3/uL (0.0-0.06); Absolute Basophil Count 0.03 10^3/uL (0.0-0.2); Absolute Eosinophil Count 0.05 10^3/uL (0.0-0.7); Absolute Lymphocyte Count 1.12 10^3/uL (1.2-3.4); Absolute Monocyte Count 0.82 10^3/uL (0.1-0.8); Absolute Neutrophil Count 6.31 10^3/uL (1.2-6.7); Basophils % 0.4 %; Eosinophils % 0.6 %; HCT 32.5 % (36.0-46.0); HGB 9.4 g/dL (11.2-15.7); Immature Grans % 0.2 %; Lymphocytes % 13.4 %; MCH 21.5 pg (27.0-33.0); MCHC 28.9 % (32.0-36.0); MCV 74 fL (80-95); MPV 10.7 fL (8.0-11.0); Monocytes % 9.8 %; Neutrophils % 75.6 %; Platelet Count 225 10^3/uL (130-400); RBC 4.38 10^6/uL (3.93-5.22); RDW 24.1 % (11.7-14.6); RDW-SD 62.4 fL; WBC 8.35 10^3/uL (4.4-10.8)
[2024-04-25 09:46] LABS: Anisocytosis 2+; Diff Comment Diff Reviewed; Microcytosis 2+; Poikilocytes 2+; Polychromasia Present
[2024-04-25 09:54] LABS: ALT 21 U/L (14-59); AST 20 U/L (15-37); Albumin 3.9 g/dL (3.4-5.0); Alkaline Phosphatase 72 U/L (46-116); Anion Gap 9.5 mmol/L (3-11); BUN 35 mg/dL (7-18); Bilirubin, Direct 0.3 mg/dL (0.0-0.2); Bilirubin, Total 1.2 mg/dL (0.2-1.0); CO2 28.5 mmol/L (21.0-32.0); CREATININE 1.4 mg/dL (0.55-1.02); Calcium 9.6 mg/dL (8.5-10.1); Chloride 104 mmol/L (98-107); Estimated GFR 38.27 (mL/min/1.73m2); Glucose 140 mg/dL (74-106); Lipase 15 U/L (16-77); Magnesium 2.1 mg/dL (1.8-2.4); Potassium 3.8 mmol/L (3.5-5.1); Sodium 142 mmol/L (136-145); Total Protein 7.3 g/dL (6.4-8.2)
[2024-04-25 10:37] LABS: Bilirubin Negative (Negative); Blood Trace-intact (Negative); Clarity Sl Cloudy (Clear); Glucose Negative (Negative); Ketones Negative (Negative); Leukocyte Esterase Trace (Negative); Nitrite Negative (Negative); Specific Gravity <= 1.005 (1.005-1.025); Urobilinogen 0.2 mg/dL (Up to 0.2)
[2024-04-25 10:52] VITALS: BP 167/59; PULSE 90; RESP 14; O2SAT 96
[2024-04-25 10:57] LABS: Bacteria Rare HPF (Negative); C & S Indicated? No; Casts Negative LPF (Negative); Crystals Negative HPF (Negative); Epithelial Cells Rare HPF (Negative); Mucus Trace (Negative)
[2024-04-25] MEDS: Lidocaine 5% Patch 1 PATCH TP (11:25)
== END 2024-04-25 11:26 | disposition home or self-care (01) ==
PROVIDERS: Emergency Provider Emergency Medicine; PCP Registered Nurse Critical Care Medicine
DX: M54.50 Low back pain, unspecified (principal); I12.9 Hypertensive chronic kidney disease with stage 1 through stage 4 chronic kidney disease, or unspecified chronic kidney disease; E11.22 Type 2 diabetes mellitus with diabetic chronic kidney disease; N18.30 Chronic kidney disease, stage 3 unspecified; I25.10 Atherosclerotic heart disease of native coronary artery without angina pectoris; C85.80 Other specified types of non-Hodgkin lymphoma, unspecified site; Z95.2 Presence of prosthetic heart valve; Z79.82 Long term (current) use of aspirin; Z79.84 Long term (current) use of oral hypoglycemic drugs
CPT/HCPCS: 36415; 80053; 83690; 96361; 96365; 99284; 81003; 81015; 82248; 83735; 85025; 99283; J0131